=== PATIENT | female | born 1965 | race Caucasian/White ===

== ENCOUNTER → 2018-04-24 12:27 | Outpatient (CLI) | payer MEDICARE, MEDICAID, SELFPAY ==
[2018-04-06 15:15] VITALS: BMI 17.3
--- NOTE | 2018-04-24 12:54 | CT_ITS ---
STUDY: CT ABDOMEN AND PELVIS WITH CONTRAST REASON FOR EXAM: Female, 52 years old. Unplanned weight loss x 90 days. RADIATION DOSAGE (If Supplied By Facility): CTDIvol = ( 8.46 ) mGy, DLP = ( 455.63 ) mGycm TECHNIQUE: Transaxial images were obtained from the dome of the diaphragm to the symphysis pubis with oral contrast. 75 ml of Isovue 300 contrast was administered. Sagittal and coronal images were reconstructed. Individualized dose optimization techniques were used for this CT. COMPARISON: None. FINDINGS: The visualized lung bases are unremarkable. The visualized portions of the heart are within normal limits. Normal liver. The patent portal vein diameter is 16.5 mm. The gallbladder is partially contracted. The diameter of the common bile duct is 6.5 mm. Normal spleen. Normal pancreas. Normal bilateral adrenal glands. Normal right kidney. Normal left kidney. No hydronephrosis. Normal visualized stomach. Normal small intestine. There is a moderate volume of fecal material throughout the colon. The appendix is visualized and appears normal. There is moderate atherosclerotic calcification of the distal abdominal aorta and proximal iliac arteries, without a demonstrated aneurysm. Normal inferior vena cava. Normal retroperitoneum. Normal urinary bladder. Normal size retroverted uterus. Endometrial thickness is approximately 5.5 mm. Metal clips of prior bilateral tubal ligation noted along the uterine cornu. Subtle 1.3 cm hypodensity in the right ovary may be a dominant follicle. Normal abdominal wall. There are multilevel mild degenerative changes of the visualized lumbar spine. Degenerative arthrosis with osteophytic bridging noted along the superior aspect of the left sacroiliac joint. CT/Abdomen/Pelvis WITH Contrast IMPRESSION: 1. No demonstrated suspicious abdominal/pelvic mass or fluid collection. 2. Prior bilateral tubal ligation. Normal-size retroverted uterus with normal endometrial thickness. Probable 1.3 cm dominant follicle in the right ovary. 3. Aortoiliac atherosclerotic calcific plaquing. 4. 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 Electronically Signed: Perry Ricketts MD at 14:14 EST , Service support ,
--- NOTE | 2018-04-24 12:54 | CT_ITS ---
STUDY: CT CHEST/THORAX WITH CONTRAST REASON FOR EXAM: Female, 52 years old. Unplanned weight loss x 90 days. RADIATION DOSAGE (If Supplied By Facility): CTDIvol = ( 8.46 ) mGy, DLP = ( 455.63 ) mGycm TECHNIQUE: Transaxial imaging was performed following intravenous administration of 75 ml of Isovue 300 contrast material. Multiplanar coronal and sagittal images were reformatted. Individualized dose optimization techniques were used for this CT. COMPARISON: PA and lateral chest x-ray November 23, 2015. FINDINGS: There are moderately extensive centrilobular and panlobular emphysematous changes as well as subpleural blebs predominating in the upper to mid lung zones. There is minor pleural parenchymal scarring in the superior sulci. No consolidating infiltrate or pleural effusion. Normal heart and pericardium. There are atherosclerotic calcifications of the coronary arteries. There is a 1.7 x 1.0 x 1.2 cm precarinal lymph node. A few upper normal sized lymph nodes are present in the right hilum. There are nonspecific subcentimeter lymph nodes in the aorticopulmonary window and left hilum. Normal enhanced pulmonary arteries. There is mild atherosclerotic calcification of the aortic . There are multi-level mild degenerative changes of the thoracic spine. There is no demonstrated abnormality of the visualized upper abdomen. CT/Chest WITH Contrast IMPRESSION: 1. Emphysema. 2. Atherosclerotic calcifications of the coronary arteries. Heart size is normal. Electronically Signed: Perry Ricketts MD at 14:07 EST , Service support ,
[2018-04-24 12:57] LABS: Absolute Lymphocyte Count 3.06 X10^3/ul (0.83-4.51); Absolute Neutrophil Count 7.9 X10^3/uL (2.0-7.7); Basophil# 0.05 X10^3/uL; Basophil% 0.4 % (0-1); Eosinophil# 0.29 X10^3/uL; Eosinophils% 2.3 % (0-5); Hematocrit 40.2 % (37-47); Hemoglobin 12.9 g/dl (12.0-15.0); Lymphocyte # 3.06 X10^3/ul (4.0); Lymphocyte % 23.9 % (19-41); Mean Corp Hgb Conc 32.1 g/gl (32-36); Mean Corpuscular Hgb 30.2 pg (27.0-32.0); Mean Corpuscular Volume 94.1 fL (81-99); Monocyte# 1.41 X10^3/uL; Neutrophil # 7.94 X10^3/uL (2.7-7.7); Platelet Count 462 K/mm3 (150-450); RBC Distribution Width CV 12.5 % (11.6-14.6); Red Blood Count 4.27 M/mm3 (4.2-5.4); White Blood Count 12.8 K/mm3 (4.4-11.0)
[2018-04-24 13:01] LABS: POSITIVE COUNT NO; POSITIVE DIFFERENTIAL NO; POSITIVE MORPHOLOGY NO
[2018-04-24 13:45] LABS: ALB/GLOB Ratio 1.1 RATIO (0.9-2.4); AST(SGOT) 18 U/L (15-37); Alanine Aminotransfer ALT/SGPT 27 U/L (13-56); Albumin, Serum 3.8 g/dL (3.2-5.0); Alkaline Phosphatase 93 U/L (45-117); Anion Gap 6 (5-15); BUN 7 mg/dL (7-18); Calcium,Total 8.7 mg/dL (8.5-10.1); Chloride 103 mmol/L (98-107); Creatinine, Serum 0.64 mg/dL (0.55-1.02); EST Glomerular Filtration Rate 104 mL/min (>60); Est Glom Filt Rate - Afr Amer 126 mL/min (>60); Ferritin 209 ng/mL (8-252); Globulin 3.6 g/dL (2.2-4.2); Glucose 87 mg/dL (74-106); Iron 92 ug/dL (50-170); Iron Binding Capacity,Total 306 ug/dL (250-450); LDH 162 U/L (84-246); PERCENT IRON SATURATION 30.1 % (15.0-55.0); Phosphorus 3.8 mg/dL (2.5-4.9); Potassium 4.1 mmol/L (3.5-5.1); Protein, Total 7.4 g/dL (6.4-8.2); Sodium Level 134 mmol/L (136-145)
[2018-04-24 14:05] LABS: Vitamin B12 608 pg/mL (211-911)
== END ==
PROVIDERS: Family Provider Nurse Practitioner Family; PCP Nurse Practitioner Family; Referring Provider Internal Medicine Medical Oncology; Visit Provider Internal Medicine Medical Oncology
DX: R63.4 Abnormal weight loss (principal); D69.6 Thrombocytopenia, unspecified
CPT/HCPCS: 36415; 71260; 74177; 80053; 82607; 82728; 82746; 83540; 83550; 83615; 83735; 84100; 85025; Q9967

== ENCOUNTER → 2018-06-26 12:42 | Outpatient (CLI) | payer MEDICARE, MEDICAID, SELFPAY ==
[2018-05-08 14:36] VITALS: BMI 17.9
--- NOTE | 2018-06-26 12:45 | CT_ITS ---
STUDY: CT CHEST WITH CONTRAST REASON FOR EXAM: Female, 52 years old. Mediastinal adenopathy follow-up, shortness of breath, smokes 1 pack per day, emphysema, hypertension RADIATION DOSAGE (If Supplied By Facility): CTDIvol = ( 7.26 ) mGy, DLP = ( 181.52 ) mGycm TECHNIQUE: Transaxial imaging was performed following intravenous administration of 75mL IV Isovue 370. Multiplanar coronal and sagittal images were reformatted. Individualized dose optimization techniques were used for this CT. COMPARISON: CT chest contrast 04/24/2018 FINDINGS: Moderate centrilobular and paraseptal emphysema with up to 2.8 cm medial bilateral pleural bulla formation. Bilateral apical pleural thickening and mild adjacent distortion of parenchyma extending along the right mid chest wall without change. No intraparenchymal nodules or masses detected.. There is no demonstrated pleural abnormality. Normal heart and pericardium. There are calcifications of the coronary arteries. Precarinal lymph node 1.2 x 1.5 x 1.3 cm appears overall stable allowing for adjacent streak artifact on current examination. There are right paratracheal borderline sized lymph nodes measuring 0.6 x 0.9 x 1.4 cm, 0.9 x 0.6 x 1.4 cm. Right hilar lymph node of 0.7 x 1 x 1 cm. Normal hilar regions. Normal enhanced pulmonary arteries. Normal aorta arch and descending thoracic aorta. There are mild multi-level degenerative changes of the thoracic spine. No destructive osseous lesions. There is no demonstrated abnormality of the visualized upper abdomen. CT/Chest WITH Contrast IMPRESSION: Emphysema with stable apical pleural thickening and parenchymal distortion tracking along the right chest wall. No pulmonary nodules, pulmonary masses, pulmonary edema, congestive heart failure or confluent pneumonia. Mediastinal and right hilar borderline in size to minimally enlarged lymph nodes without significant interval change. Electronically Signed: Padma Reno MD at 4:28 EDT , Service support ,
== END ==
PROVIDERS: Family Provider Nurse Practitioner Family; PCP Nurse Practitioner Family; Referring Provider Internal Medicine Medical Oncology; Visit Provider Internal Medicine Medical Oncology
DX: R59.0 Localized enlarged lymph nodes (principal); D72.829 Elevated white blood cell count, unspecified
CPT/HCPCS: 71260; Q9967

== ENCOUNTER 2018-10-04 13:58 | Emergency (ER) | payer MEDICARE, OTHER, SELFPAY ==
[2018-07-03 15:17] VITALS: BMI 18.8
[2018-10-04 14:00] VITALS: BP 175/91; PULSE 78; RESP 16; TEMP 36.5; O2SAT 100; BMI 19.3
--- NOTE | 2018-10-04 14:21 | EKG12_ITS ---
Test Reason : WEAKNESS Blood Pressure : / mmHG Vent. Rate : 078 BPM Atrial Rate : 078 BPM P-R Int : 130 ms QRS Dur : 094 ms QT Int : 402 ms P-R-T Axes : 051 -52 068 degrees QTc Int : 458 ms Normal sinus rhythm Possible Left atrial enlargement Left axis deviation Incomplete right bundle branch block Abnormal ECG Confirmed by CONSUELO RIOS ([id number]), purchasing expeditor WISAM GARCIA ([id number]) on 10/05/2018 9:48:08 AM Referred By: Confirmed By:CONSUELO RIOS
--- NOTE | 2018-10-04 14:21 | CT_ITS ---
STUDY: CT BRAIN WITHOUT CONTRAST REASON FOR EXAM: Female, 52 years old. Right-sided weakness RADIATION DOSAGE (If Supplied By Facility): CTDIvol = ( 60.81 ) mGy, DLP = ( 998.67 ) mGycm TECHNIQUE: Transaxial CT imaging of the brain was performed without administration of intravenous contrast material. Individualized dose optimization techniques were used for this CT. COMPARISON: 2008 FINDINGS: Normal soft tissue structures. Normal calvarium. Normal size ventricles and extra-axial spaces for the patient's age. Normal white matter tracts of the cerebral hemispheres. Normal basal ganglia and thalami. Normal brainstem. Normal cerebellum. There is no intracranial hemorrhage. There are no findings of an acute ischemic infarction. Normal visualized paranasal sinuses. CT/Brain/Head without Contrast IMPRESSION: Normal unenhanced CT scan of the brain. Electronically Signed: Perry Hammond MD at 14:58 EDT , Service support ,
--- NOTE | 2018-10-04 14:35 | ED.DCSUM_ITS ---
- ER Visit Summary Date of Service: 10/04/18 Chief Complaint: Right-sided weakness and numbness History of Present Illness: The patient is a 52 F who tells me that ever since she had a hysterectomy in July her right side is intermittently been numb and weak. States she has a history of RSD and it affects her right side. She states that her [employer] ROOM ATTENDANT who did her hysterectomy knows about her symptoms. Her primary care physician does not know about them. Daughter states that patient seems to have difficulty walking. None of this is new today. She states that her home physical therapist thought that she should come to emergency as a precaution. They thought perhaps she was having a stroke. Physical Examination: Afebrile vital signs stable Gen: Well-nourished well-developed Head: Normocephalic atraumatic Eyes: Perrl EOMI ENT: TMs clear no rhinorrhea moist mucous membranes Neck: Supple no lymphadenopathy no JVD nontender CVS: Regular rate rhythm no murmurs normal S1-S2 Respiratory: No distress clear to auscultation bilaterally chest nontender Abdomen: Soft nontender nondistended normal bowel sounds no masses Back: Nontender Extremity: Nontender no edema Skin: Normal color no rash Neuro: alert orientated ?3 CN II-XII intact normal strength sensation cerebellar I score her NIH of 0 Psych: Pressured speech appears irritated Test Results: EKG shows a sinus rhythm at a rate of 78 chest x-ray negative. CT the brain does not show any acute subacute or chronic infarcts. There is no evidence of normal pressure hydrocephalus. Is essentially negative head CT. Basic blood work white count 11.3 normal platelets and hemoglobin. Her lecture lites are in check. Glucose is slightly low at 67. Emergency Department Course and Treatment: Patient was given some orange juice. At this point patient does not have acute symptoms. I think she can be discharged home. Asked that she involve her primary care physician in her care as they do not know anything about the symptoms. Impression: 1. Chronic right-sided weakness and paresthesias This note was generated with [employer] dictation software. It may contain incorrect words, spelling, and punctuation that were not noted in review of the chart prior to signing ED Disposition - Plan for ED Patient: Disposition: Home or Assisted Living Instructions: WEAKNESS, Unk Cause Referrals: Jaylin Diehl NP-C [Primary Care Provider] - As soon as possible
[2018-10-04 14:44] LABS: Absolute Lymphocyte Count 3.12 X10^3/uL (0.83-4.51); Absolute Neutrophil Count 6.6 X10^3/uL (2.0-7.7); Basophil# 0.06 X10^3/uL; Basophil% 0.5 % (0-1); Eosinophil# 0.25 X10^3/uL; Eosinophils% 2.2 % (0-5); Hematocrit 40.2 % (37-47); Hemoglobin 13.2 g/dL (12.0-15.0); Lymphocyte # 3.12 X10^3/ul (4.0); Lymphocyte % 27.6 % (19-41); Mean Corp Hgb Conc 32.8 g/dL (32-36); Mean Corpuscular Volume 94.4 fL (81-99); Mean Platelet Vol. 8.7 fl (6.2-12.0); Monocyte# 1.19 X10^3/uL; Monocyte% 10.5 % (0-10); NRBC Flagged by Analyzer 0 % (0-5); Neutrophil # 6.64 X10^3/uL (2.7-7.7); Neutrophil % 58.8 % (47-70); Platelet Count 431 K/mm3 (150-450); RBC Distribution Width SD 41.9 fl (35.1-43.9); Red Blood Count 4.26 M/mm3 (4.2-5.4); White Blood Count 11.3 K/mm3 (4.4-11.0)
--- NOTE | 2018-10-04 14:45 | RAD_ITS ---
STUDY: X-RAY CHEST REASON FOR EXAM: Female, 52 years old. Weakness TECHNIQUE: PA and 2 lateral views of the chest. COMPARISON: 11/23/2015 FINDINGS: EKG leads overlie the chest The lungs are clear and expanded. There is no demonstrated pleural abnormality. Normal size heart. Normal mediastinum and jennifer. Normal visualized pulmonary arteries. Normal visualized aortic arch and descending thoracic aorta. Normal visualized thoracic spine. Normal visualized ribs, clavicles, and shoulders. There is no demonstrated abnormality of the visualized soft tissue structures of the upper abdomen. RAD/Chest PA and Lateral IMPRESSION: Normal x-ray examination of the chest. Electronically Signed: Perry Hammond MD at 15:00 EDT , Service support ,
[2018-10-04 14:59] LABS: ALB/GLOB Ratio 1.1 RATIO (0.9-2.4); AST(SGOT) 13 U/L (15-37); Alanine Aminotransfer ALT/SGPT 21 U/L (13-56); Albumin, Serum 3.9 g/dL (3.2-5.0); Alkaline Phosphatase 109 U/L (45-117); Anion Gap 6 (5-15); BUN 11 mg/dL (7-18); BUN/Creat Ratio 11.6 RATIO (10-20); Chloride 105 mmol/L (98-107); Creatinine, Serum 0.95 mg/dL (0.55-1.02); EST Glomerular Filtration Rate 66 mL/min (>60); Est Glom Filt Rate - Afr Amer 79 mL/min (>60); Estimated Creatinine Clearance 57.74 ml/min; Globulin 3.4 g/dL (2.2-4.2); Glucose 67 mg/dL (74-106); Potassium 3.6 mmol/L (3.5-5.1); Protein, Total 7.3 g/dL (6.4-8.2); Sodium Level 139 mmol/L (136-145)
[2018-10-04 15:45] LABS: Bedside Glucose 133 mg/dL (70-110)
[2018-10-04 16:00] VITALS: BP 105/63; PULSE 62; RESP 15; O2SAT 98
== END 2018-10-04 16:01 | disposition home or self-care (01) ==
PROVIDERS: Emergency Provider Emergency Medicine; Family Provider Nurse Practitioner Family; PCP Nurse Practitioner Family
DX: R53.1 Weakness (principal); R20.2 Paresthesia of skin; J44.9 Chronic obstructive pulmonary disease, unspecified; G90.50 Complex regional pain syndrome I, unspecified; F10.20 Alcohol dependence, uncomplicated; Z90.710 Acquired absence of both cervix and uterus; Z79.899 Other long term (current) drug therapy; Z72.0 Tobacco use
CPT/HCPCS: 70450; 71046; 80053; 82962; 85025; 93005; 99285; A4216

== ENCOUNTER 2018-11-21 02:22 | Emergency (ER) | payer MEDICARE, OTHER, SELFPAY ==
[2018-11-21 02:23] VITALS: BP 166/96; PULSE 70; RESP 18; TEMP 36.5; O2SAT 100; BMI 20.7
--- NOTE | 2018-11-21 02:36 | ED.DCSUM_ITS ---
History of Present Illness Chief Complaint: General Illness Narrative: Patient is a 52-year-old female who presents with a rash since July. She states it is painful. She has seen a research and evaluation analyst. She was prescribed doxepin. She denies any associated new symptoms such as fevers nausea vomiting chest pain shortness of breath. She complains of some cough but review of systems otherwise negative. Past Medical History - Allergies and Home Meds Allergies/Adverse Reactions: Allergies cortisone Allergy (Verified 11/21/18 02:29) Swelling latex Allergy (Verified 11/21/18 02:29) Itching Penicillins Allergy (Verified 11/21/18 02:29) Hives Primary Care Physician: Jaylin Diehl NP-C [Primary Care Provider] - Past Medical History: - - Fibromyalgia Surgical History: hysterectomy Smoking Status: Current every day smoker Review of Systems All systems negative except as indicated General: Denies: Fever Respiratory: Reports: Cough Skin: Reports: Rash Physical Exam Vital Signs/Narrative: Vital Signs Temp Pulse Resp BP Pulse Ox 11/21/18 02:23 97.7 F L 70 18 166/96 H 100 Inital Vital Signs reviewed: Yes General: Well nourished Head: Normocephalic Eyes: EOMI ENT: Moist mucous membranes Neck: Supple Cardiovascular: Regular rate, Regular rhythm Respiratory: No distress, CTA bilaterally Abdomen: Soft Skin: Rash - Patient has a rash which appears to be small scabbed over wounds on the legs and arms possibly consistent with picking at the skin no petechiae no purpura no erythema no streaking Neurological: Alert Psychological: Normal affect Diagnostic/Tx/Re-eval - Medical Decision Making I explained to the patient I am uncertain of the cause of her rash however it does not appear to be due to acute serious or life-threatening pathology. I explained given that she has had the rash for 4 months and already seen a research and evaluation analyst I have nothing else to offer her here in the emergency department and that she should follow-up with dermatology. She noted difficulty getting hold of her primary care physician so was given a referral to establish new physician should she wish. She was given the contact information for the next physician on the no doc list. ED Disposition - Plan for ED Patient: Disposition: Home or Assisted Living Diagnosis: Rash Referrals: Jaylin Diehl NP-C [Primary Care Provider] - Robert Arce DO [STAFF PHYSICIAN] - Additional Instructions: You were seen today for a rash. It does not appear to be due to a serious or life-threatening problem. I would recommend that you follow-up with the primary care physician and dermatology.
[2018-11-21 02:45] VITALS: BP 166/96; PULSE 70; RESP 18; O2SAT 100
== END 2018-11-21 02:45 | disposition home or self-care (01) ==
LOC: ED 02:42
PROVIDERS: Emergency Provider Emergency Medicine; Family Provider Nurse Practitioner Family; PCP Nurse Practitioner Family
DX: R21 Rash and other nonspecific skin eruption (principal); F17.200 Nicotine dependence, unspecified, uncomplicated; M79.7 Fibromyalgia; Z79.899 Other long term (current) drug therapy
CPT/HCPCS: 99282

== ENCOUNTER → 2019-01-09 | Outpatient (CLI) | payer MEDICARE, OTHER, SELFPAY ==
[2019-01-09 12:16] LABS: Absolute Neutrophil Count 7.3 X10^3/uL (2.0-7.7); Basophil# 0.07 X10^3/uL; Basophil% 0.6 % (0-1); Eosinophil# 0.22 X10^3/uL; Eosinophils% 1.9 % (0-5); Hematocrit 41.3 % (37-47); Lymphocyte % 25.5 % (19-41); Mean Corp Hgb Conc 31.5 g/dL (32-36); Mean Corpuscular Hgb 29.3 pg (27.0-32.0); Mean Corpuscular Volume 93.2 fL (81-99); Mean Platelet Vol. 9.3 fl (6.2-12.0); Monocyte# 0.83 X10^3/uL; Monocyte% 7.3 % (0-10); NRBC Flagged by Analyzer 0 % (0-5); Neutrophil # 7.34 X10^3/uL (2.7-7.7); Neutrophil % 64.4 % (47-70); Platelet Count 413 K/mm3 (150-450); RBC Distribution Width CV 12.6 % (11.6-14.6); RBC Distribution Width SD 43.5 fl (35.1-43.9); Red Blood Count 4.43 M/mm3 (4.2-5.4); White Blood Count 11.4 K/mm3 (4.4-11.0)
[2019-01-09 15:05] LABS: AST(SGOT) 15 U/L (15-37); Alanine Aminotransfer ALT/SGPT 21 U/L (13-56); Alkaline Phosphatase 82 U/L (45-117); Anion Gap 6 (5-15); BUN 13 mg/dL (7-18); BUN/Creat Ratio 19.5 RATIO (10-20); Bilirubin, Direct 0.07 mg/dL (0.00-0.30); Calcium,Total 9.1 mg/dL (8.5-10.1); Chloride 105 mmol/L (98-107); Creatinine, Serum 0.67 mg/dL (0.55-1.02); EST Glomerular Filtration Rate 98 mL/min (>60); Est Glom Filt Rate - Afr Amer 119 mL/min (>60); Globulin 3.4 g/dL (2.2-4.2); Glucose 88 mg/dL (74-106); Potassium 4.1 mmol/L (3.5-5.1); Protein, Total 7.4 g/dL (6.4-8.2); Sodium Level 137 mmol/L (136-145); T4 Free Direct 1.03 ng/dL (0.76-1.46); Thyroid Stim Hormone (TSH) 0.98 uIU/mL (0.358-3.74)
== END | disposition home or self-care (01) ==
LOC: MTLAB 10:48
PROVIDERS: Family Provider Nurse Practitioner Family; PCP Nurse Practitioner Family; Referring Provider Dermatology; Visit Provider Dermatology
DX: L29.8 Other pruritus (principal); S30.91XA Unspecified superficial injury of lower back and pelvis, initial encounter; S70.922A Unspecified superficial injury of left thigh, initial encounter; S70.921A Unspecified superficial injury of right thigh, initial encounter; S80.922A Unspecified superficial injury of left lower leg, initial encounter; S80.921A Unspecified superficial injury of right lower leg, initial encounter; S50.911A Unspecified superficial injury of right forearm, initial encounter; S50.912A Unspecified superficial injury of left forearm, initial encounter; S90.922A Unspecified superficial injury of left foot, initial encounter; S90.921A Unspecified superficial injury of right foot, initial encounter; S20.402A Unspecified superficial injuries of left back wall of thorax, initial encounter; S20.401A Unspecified superficial injuries of right back wall of thorax, initial encounter; R20.8 Other disturbances of skin sensation; Z78.9 Other specified health status
CPT/HCPCS: 36415; 80048; 80076; 84439; 84443; 85025

== ENCOUNTER → 2019-04-03 10:22 | Outpatient (CLI) | payer MEDICARE, OTHER, SELFPAY ==
--- NOTE | 2019-04-03 10:30 | RAD_ITS ---
HISTORY: RT HIP PAIN SINCE HYSTERECTOMY IN JULY. HIP GIVES OUT. ADDITIONAL HISTORY: None provided. TECHNIQUE: AP and lateral views of the right hip with AP pelvis Number of images including paperwork: 3 COMPARISON: None FINDINGS: BONES: No acute fracture. JOINTS: No subluxation. SOFT TISSUES: No distinct foreign body. RAD/HIP, UNI W/ Pelvis 2-3 Views IMPRESSION: No acute osseous abnormality. at 0616 Reported and signed by: Racheal De Guzman MD Electronically Signed: Racheal De Guzman MD at 6:16 EST Tel , Service support ,
== END ==
PROVIDERS: PCP Nurse Practitioner Family; Referring Provider Nurse Practitioner Family; Visit Provider Nurse Practitioner Family
DX: M25.551 Pain in right hip (principal)
CPT/HCPCS: 73502

== ENCOUNTER 2019-06-23 19:36 | Emergency (ER) | payer MEDICARE, MEDICAID, SELFPAY ==
[2019-06-23 19:37] VITALS: BP 156/80; PULSE 64; RESP 18; TEMP 35.5; O2SAT 100; BMI 17.4
--- NOTE | 2019-06-23 19:52 | ED.DCSUM_ITS ---
History of Present Illness Chief Complaint: Lower Extremity Injury Detail of Chief Complaint: right hip pain Informant: Patient Onset: Weeks - 3 Context: Gradual Onset Timing: Continuous Quality of Pain: Aching Location: right lateral hip, low back/buttock, and into lateral thigh Current Severity: Severe Maximum Severity: Severe Worsened by: trying to walk/WB RLE Relieved by: nothing; a little better w/ remaining still Associated Symptoms: Parasthesia - in same distribution as the pain. Negative for: Weakness, Loss of Funtion Narrative: Patient states she had a hysterectomy last year in July, and for the last 11 months she has been having pain in her right hip. She states the etiology is unknown, but since October of last year, she has had an indentation in the area of the right ischial tuberosity that is from unknown cause. She has never had right hip surgery. She does not have any abdominal pain. All the pain is in the same distribution as numbness which is lateral right hip/thigh, and into her buttock. She denies any symptoms going below the leg. She denies any bowel or bladder dysfunction. She has had a couple falls in the past year, 1 of them occurred a couple days ago. She did not injure herself, but states she fell as a result of severe pain in her right lower extremity/hip causing her right leg to give way temporarily. She is looking for something to help with the pain tonight. She denies any new symptoms. No fevers. - Past Medical History (1) History of depression Status: Chronic (2) Mediastinal adenopathy Status: Chronic Past Medical History - Allergies and Home Meds Allergies/Adverse Reactions: Allergies cortisone Allergy (Verified 06/23/19 19:40) Swelling latex Allergy (Verified 06/23/19 19:40) Itching Penicillins Allergy (Verified 06/23/19 19:40) Hives Primary Care Physician: Jaylin Diehl NP-C [Primary Care Provider] - Surgical History: hysterectomy Lives: - - independent living / senior living community Smoking Status: Current every day smoker Review of Systems General: Denies: Chills, Fever, Sweats Gastrointestinal: Denies: Abdominal pain, Nausea, Vomiting, Diarrhea, Melena, Hematochezia Musculoskeletal: Reports: Extremity Pain. Denies: Neck pain, Back pain Skin: Denies: Rash, Abrasions, Wounds Neurological: Reports: Parasthesia. Denies: Headache, Weakness Physical Exam Vital Signs/Narrative: Vital Signs Temp Pulse Resp BP Pulse Ox 06/23/19 19:37 96 F L 64 18 156/80 H 100 Inital Vital Signs reviewed: Yes - Extremity Exam Right Hip: Limited ROM - due to pain, but able, - - There is indeed a soft tissue indentation in the area of the right buttock/ischial tuberosity. She is tender throughout this area as well as the lateral thigh including the greater trochanter, sciatic notch, lateral right buttock. Negative straight leg raises. Painless internal and external rotation about the hip joint without any groin pain. She is able to flex at the thigh fully, although she is limited at extreme because of pain. General: Well nourished, Well developed, - - NAD Head: Normocephalic, Atraumatic Abdomen: Soft, Nontender, Nondistended, Normal bowel sounds Back: Nontender. Negative for: CVA Tenderness - Right, CVA Tenderness - Left, Spinal Tenderness, Negative SLR - Right, Negative SLR - Left Skin: Normal color, No rash Neurological: Alert, Oriented x3, Cranial nerves II-XII grossly intact, Normal Strength, Normal DTR, Parasthesia - lateral right thigh Psychological: - - anxious, frustrated Diagnostic/Tx/Re-eval - Medical Decision Making No presence of any emergency medical conditions. I asked patient if she had been considered for an MRI of this area to find out what the soft tissue problem is that is causing an abnormal indentation in her right distal tuberosity area. She states that she has not discussed that with her doctor although she has seen them and is on Neurontin in addition to other medications help control this pain, they are not working at this time. I am happy to help control her symptoms tonight, she was given prophylactic Zofran in addition to Norflex and morphine injections, if improved will discharge her home to follow-up with her doctor. She may have a neuropathy of the lateral cutaneous nerve of the thigh causing the symptoms. She may need further work-up including MRI non- emergently, nerve conduction studies. She does not examine like a septic joint, gout, fracture. Furthermore she states she has had x-rays of her right hip at this facility in the past, they did not show any obvious problem, and she states the symptoms are the same and she does not want x-rays at this time. ED Disposition - Plan for ED Patient: Disposition: Home or Assisted Living Diagnosis: Peripheral neuropathic pain Instructions: ED PERIPHERAL NEUROPATHY Referrals: Jaylin Diehl NP-C [Primary Care Provider] - As soon as possible
[2019-06-23] MEDS: Ondansetron ODT 4 MG Tablet 8 MG PO (20:10)
[2019-06-23] MEDS: Orphenadrine 60 MG/2 ML Ampul IM (20:11)
[2019-06-23] MEDS: Morphine 4 MG/ML Syringe IM (20:11)
[2019-06-23 20:32] VITALS: BP 134/76; PULSE 71; RESP 18; O2SAT 99
== END 2019-06-23 20:33 | disposition home or self-care (01) ==
LOC: ED 20:17
PROVIDERS: Emergency Provider Emergency Medicine; PCP Nurse Practitioner Family
DX: M79.2 Neuralgia and neuritis, unspecified (principal); F32.9 Major depressive disorder, single episode, unspecified; Z79.899 Other long term (current) drug therapy; F17.200 Nicotine dependence, unspecified, uncomplicated
CPT/HCPCS: 96372; 99282

== ENCOUNTER → 2019-06-29 12:39 | Outpatient (CLI) | payer MEDICARE, MEDICAID, SELFPAY ==
[2019-06-23 19:37] VITALS: BMI 17.4
[2019-06-26 14:02] LABS: Absolute Lymphocyte Count 3.16 X10^3/uL (0.83-4.51); Absolute Neutrophil Count 6.7 X10^3/uL (2.0-7.7); Basophil# 0.08 X10^3/uL; Basophil% 0.7 % (0-1); Eosinophils% 4.4 % (0-5); Lymphocyte # 3.16 X10^3/ul (4.0); Lymphocyte % 27.6 % (19-41); Mean Corp Hgb Conc 32.5 g/dL (32-36); Mean Corpuscular Hgb 29.9 pg (27.0-32.0); Mean Platelet Vol. 9.1 fl (6.2-12.0); Monocyte# 0.96 X10^3/uL; Monocyte% 8.4 % (0-10); NRBC Flagged by Analyzer 0 % (0-5); Neutrophil # 6.73 X10^3/uL (2.7-7.7); Neutrophil % 58.6 % (47-70); Platelet Count 438 K/mm3 (150-450); RBC Distribution Width CV 12.4 % (11.6-14.6); RBC Distribution Width SD 41.5 fl (35.1-43.9); Red Blood Count 4.35 M/mm3 (4.2-5.4); White Blood Count 11.5 K/mm3 (4.4-11.0)
[2019-06-26 14:06] LABS: ALB/GLOB Ratio 1.2 RATIO (0.9-2.4); AST(SGOT) 21 U/L (15-37); Alanine Aminotransfer ALT/SGPT 25 U/L (13-56); Albumin, Serum 3.7 g/dL (3.2-5.0); Alkaline Phosphatase 91 U/L (45-117); Anion Gap 5 (5-15); BUN 14 mg/dL (7-18); BUN/Creat Ratio 14.2 RATIO (10-20); Calcium,Total 9.1 mg/dL (8.5-10.1); Chloride 106 mmol/L (98-107); Cholesterol 178 mg/dL (200); Creatinine, Serum 0.99 mg/dL (0.55-1.02); EST Glomerular Filtration Rate 62 mL/min (>60); Est Glom Filt Rate - Afr Amer 75 mL/min (>60); Globulin 3.2 g/dL (2.2-4.2); Glucose 84 mg/dL (74-106); High Density Lipoprotein 75 mg/dL; LDH 161 U/L (84-246); Potassium 4.1 mmol/L (3.5-5.1); Protein, Total 6.9 g/dL (6.4-8.2); Sodium Level 140 mmol/L (136-145); Triglycerides 142 mg/dL; Very Low Density Lipoprotein 28 mg/dL (5-40)
--- NOTE | 2019-06-29 12:40 | CT_ITS ---
STUDY: CT CHEST WITH CONTRAST REASON FOR EXAM: Female, 53 years old. PT STATED FOLLOW UP TO MEDIASTINAL LYMPHADENOPATHY RADIATION DOSAGE (If Supplied By Facility): CTDIvol = ( 7.28 ) mGy, DLP = ( 215.46 ) mGycm TECHNIQUE: Transaxial imaging was performed following intravenous administration of IV 100ML ISOVUE 300. Multiplanar coronal and sagittal images were reformatted. Individualized dose optimization techniques were used for this CT. COMPARISON: 06/26/2018. FINDINGS: There is bilateral upper lobe emphysema, more significant along the subpleural region and more so within the lung apices. Stable focal pleural thickening along the right side of the right lung apex. Otherwise remainder of the lung stewart are clear. No focal infiltrate, nodule or mass. There is no demonstrated pleural abnormality. Normal heart and pericardium. Normal enhancement of the vascular structures with no evidence of pulmonary embolus or aortic dissection. Normal mediastinum. Normal hilar regions. Normal enhanced pulmonary arteries. Normal aorta arch and descending thoracic aorta. There are no demonstrated pulmonary emboli. Normal osseous structures. There is no demonstrated abnormality of the visualized upper abdomen. CT/Chest WITH Contrast IMPRESSION: Emphysematous changes primarily through the upper lung stewart and more significant in the subpleural distribution and lung apices. No acute interval change. Electronically Signed: Germaine Lu MD at 1:48 EDT , Service support ,
--- NOTE | 2019-06-29 12:45 | MRI_ITS ---
STUDY: MRI RIGHT HIP REASON FOR EXAM: Female, 53 years old. RIGHT hip pain, and INDENTATION IN RIGHT BUTTOCK AREA X 11 MONTHS TECHNIQUE: Standardized fat and water weighted pulse sequences were obtained in all 3 orthogonal planes. COMPARISON: X-ray April 03, 2019 FINDINGS: There is mild articular narrowing of the hip joint, with less than 50% loss of the hyaline cartilage. Normal acetabulum. Normal labrum. Normal femoral head. Normal femoral neck and intratrochanteric region. There is no demonstrated fracture. Normal gluteus minimus, medius and iliopsoas tendons and distal insertions. There is focal muscular edema with strain and/or partial tear of the gluteus kesha, series 6 images through . There is focal subcutaneous edema of the posterior superior right buttock. There is no trochanteric, iliopsoas or iliopectineal bursitis. Normal superior and inferior pubic rami. Normal pubic symphysis. Normal ischial tuberosity. Normal origin of the hamstring tendons. Normal visualized iliac wing, sacroiliac joint, and sacral ala. MRI/Lower Ext Joint Only (Routine) IMPRESSION: Muscular strain or partial tear of the gluteus kesha. There is subcutaneous edema of the right buttock. No fracture or avascular necrosis. Electronically Signed: Yefri Pollard MD at 15:03 EDT , Service support ,
== END ==
PROVIDERS: Internal Medicine Medical Oncology; PCP Nurse Practitioner Family; Referring Provider Nurse Practitioner Family; Visit Provider Nurse Practitioner Family
DX: M21.951 Unspecified acquired deformity of right thigh (principal); M25.551 Pain in right hip; D47.3 Essential (hemorrhagic) thrombocythemia; R59.0 Localized enlarged lymph nodes; R94.5 Abnormal results of liver function studies; E78.5 Hyperlipidemia, unspecified
CPT/HCPCS: 36415; 71260; 73721; 80053; 80061; 83615; 85025; Q9967

== ENCOUNTER 2019-08-29 22:59 | Emergency (ER) | payer MEDICARE, MEDICAID, SELFPAY ==
[2019-08-29 23:00] VITALS: BP 123/84; PULSE 83; RESP 20; TEMP 36.6; O2SAT 98; BMI 18.0
--- NOTE | 2019-08-29 23:36 | ED.DCSUM_ITS ---
- ER Visit Summary Date of Service: 08/29/19 Chief Complaint: Right hip pain History of Present Illness: The patient is a 53 F presenting with right hip pain. She states that this has been ongoing for the past year. She states she walked too much today and may have overdone it. She was also seen by ortho pedics today and was referred to another orthopedic surgeon in [place]. She is also in pain management and saw them 3 days ago. She is on tramadol and tried this today. She denies fever. Denies bowel or bladder incontinence. Denies recent trauma. Denies new complaints. Physical Examination: Vitals are stable. Patient is afebrile. Alert no acute distress. HEENT exam is unremarkable. Neck is supple. Lungs are clear and equal bilaterally. Heart is regular rate and rhythm. Extremities mild right hip tenderness. AFROM. No erythema or warmth. Neurovascularly intact distally Skin is warm and dry. No focal neurologic deficit. Remainder of exam is unremarkable. Emergency Department Course and Treatment: Patient is in pain management. She is requesting a one-time IM pain medication to control her pain for tonight and she will follow-up with her physician tomorrow. She is given morphine, Zofran IM. She is advised to follow-up with pain management and orthopedics. Advised return to ED for worsening complaints Disposition: Discharged home Impression: Acute on chronic right hip pain This note was generated with [employer] dictation software. It may contain incorrect words, spelling, and punctuation that were not noted in review of the chart prior to signing ED Disposition - Plan for ED Patient: Instructions: ED Chronic Pain Referrals: Jaylin Diehl NP-C [Primary Care Provider] -
[2019-08-29] MEDS: morphine 10 MG/ML Syringe 8 MG IM (23:38)
[2019-08-29] MEDS: Ondansetron 4 MG/2 ML Vial IM (23:38)
== END 2019-08-30 00:15 | disposition home or self-care (01) ==
PROVIDERS: Emergency Provider Emergency Medicine; PCP Nurse Practitioner Family
DX: M25.551 Pain in right hip (principal); G89.29 Other chronic pain; J44.9 Chronic obstructive pulmonary disease, unspecified; Z72.0 Tobacco use
CPT/HCPCS: 96372; 99282; J2405

== ENCOUNTER 2019-09-26 03:22 | Emergency (ER) | payer MEDICARE, MEDICAID, SELFPAY ==
[2019-09-26 03:24] VITALS: BP 144/92; PULSE 89; RESP 16; TEMP 36.2; O2SAT 96; BMI 19.1
--- NOTE | 2019-09-26 03:29 | ED.VIS.GEN ---
History of Present Illness Chief Complaint: Lower Extremity Injury Informant: Patient Onset: Month(s) Context: Gradual Onset Timing: Intermittent Current Severity: Moderate Maximum Severity: Severe Narrative: The patient is a 53-year-old female with medical history significant for gluteus tear presents to the emergency department with an exacerbation of her pain. Patient states that she was getting out of her bed tonight. She states that she felt something pull in her buttock and she fell to the ground. She did not strike her head or lose consciousness. She has been ambulatory since. She has a known tear in her gluteus area. She has seen pain management and orthopedics. She has been treating conservatively. She states this is her normal pain. She denies any fevers or chills. She denies any difficulty with bowel or bladder. She denies any other injury. Prior similar symptoms: Yes Recent Illness/Hospitalization: No Past Medical History - Allergies and Home Meds Allergies/Adverse Reactions: Allergies cortisone Allergy (Verified 09/26/19 03:27) Swelling latex Allergy (Verified 09/26/19 03:27) Itching Penicillins Allergy (Verified 09/26/19 03:27) Hives Primary Care Physician: Jalyin Diehl NP-C [Primary Care Provider] - Prior records reviewed: Yes Past Medical History: - - Anxiety, chronic pain Surgical History: hysterectomy Smoking Status: Current every day smoker Review of Systems General: Denies: Chills, Fever, Sweats Eyes: Denies: Visual changes - bilaterally, Diplopia ENT: Denies: Rhinorrhea, Sore throat Cardiovascular: Denies: Chest pain, Palpitations Respiratory: Denies: Dyspnea, Cough, Dyspnea on exertion Gastrointestinal: Denies: Abdominal pain, Nausea, Vomiting, Diarrhea, Melena, Hematochezia Genitourinary: Denies: Dysuria, Hematuria, Frequency Musculoskeletal: Reports: Myalgias, Arthralgias. Denies: Back pain, Extremity Pain Skin: Denies: Rash, Wounds Neurological: Denies: Headache, Weakness, Numbness Physical Exam Vital Signs/Narrative: Vital Signs Temp Pulse Resp BP Pulse Ox 09/26/19 03:24 97.1 F L 89 16 144/92 H 96 Inital Vital Signs reviewed: Yes General: Well nourished, Well developed, No Acute Distress Head: Normocephalic, Atraumatic Eyes: Perrl, EOMI ENT: Moist mucous membranes, No rhinorrhea Neck: Supple, Nontender Cardiovascular: Regular rate, Regular rhythm, No murmurs Respiratory: No distress, CTA bilaterally, Chest nontender Abdomen: Soft, Nontender, Nondistended, Normal bowel sounds Back: Nontender, Normal Inspection, - - There is an obvious defect in the upper outer quadrant of the right gluteus kesha. There is no cellulitis or erythematous change. There is no pain with logroll of the hip. The pulses of the lower extremities are 2+ and symmetric. The reflexes are normal. Extremities: Nontender, No edema Skin: Normal color, No rash Neurological: Alert, Oriented x3, Cranial nerves II-XII grossly intact, Normal Strength, Normal Sensation Psychological: Normal affect, Normal Mood Diagnostic/Tx/Re-eval - Medical Decision Making The patient presents with exacerbation of her pain. She had mechanical fall, but has had no bony tenderness. Her pain is all reproducible over the area of defect in her gluteus area. The patient will be treated with IM medications for pain control. She is already established with pain management. This does appear to be more of a chronic problem. I have no concern for epidural abscess, cauda equina, or other dangerous process. I do not feel that imaging is necessary as this seems all muscular. The patient will be discharged home. Impression 1. Gluteus strain with history of tear ED Disposition - Plan for ED Patient: Instructions: ED Sprain Hip Referrals: Jaylin Diehl NP-C [Primary Care Provider] -
[2019-09-26] MEDS: Morphine 4 MG/ML Syringe IM (03:35)
[2019-09-26] MEDS: Ondansetron ODT 4 MG Tablet PO (03:36)
--- NOTE | 2019-09-26 03:58 | ED.RN ---
no reaction noted by this nurse, shot time observed for greater than 15minutes.
== END 2019-09-26 04:29 | disposition home or self-care (01) ==
LOC: ED 03:45
PROVIDERS: Emergency Provider Emergency Medicine; PCP Nurse Practitioner Family
DX: S76.011A Strain of muscle, fascia and tendon of right hip, initial encounter (principal); W19.XXXA Unspecified fall, initial encounter; Y93.9 Activity, unspecified; Y92.9 Unspecified place or not applicable; F41.9 Anxiety disorder, unspecified; G89.29 Other chronic pain; Z79.899 Other long term (current) drug therapy; F17.200 Nicotine dependence, unspecified, uncomplicated
CPT/HCPCS: 96372; 99281

== ENCOUNTER 2019-10-01 15:13 | Emergency (ER) | payer MEDICARE, MEDICAID, SELFPAY ==
[2019-10-01 15:14] VITALS: BP 102/74; PULSE 81; RESP 16; TEMP 36.6; O2SAT 97; BMI 16.6
[2019-10-01] MEDS: Ondansetron 4 MG/2 ML Vial IV (15:42)
[2019-10-01] MEDS: 0.9% Normal Saline 1,000 ML 1000 ML IV (15:42)
[2019-10-01] MEDS: Morphine 4 MG/ML Syringe IV (15:42)
--- NOTE | 2019-10-01 15:45 | ED.DCSUM_ITS ---
History of Present Illness Chief Complaint: Lower Extremity Injury Informant: Patient Onset: Days Context: Onset with activity Timing: Intermittent Current Severity: Moderate Maximum Severity: Moderate Narrative: Patient is a 53-year-old female with medical history significant for right buttock pain that presents to the emergency department with increased pain and recurrent fall. I actually evaluated this patient about 5 days ago. She has been having this pain for about a year. She states that she has a follow-up in place at [facility], but not until the . She states she is been having increasing pain and spasm. She did have a fall on Tuesday. She did not strike her head or lose consciousness. She states that she just feels unwell because her pain is not controlled. She was in pain management and had injections, but states that seem to make her pain worse. Prior similar symptoms: Yes Recent Illness/Hospitalization: No Past Medical History - Allergies and Home Meds Allergies/Adverse Reactions: Allergies cortisone Allergy (Verified 10/01/19 15:14) Swelling latex Allergy (Verified 10/01/19 15:14) Itching Penicillins Allergy (Verified 10/01/19 15:14) Hives Primary Care Physician: Jaylin Diehl NP-C [Primary Care Provider] - Prior records reviewed: Yes Surgical History: hysterectomy Smoking Status: Current every day smoker Review of Systems General: Denies: Chills, Fever, Sweats Eyes: Denies: Visual changes - bilaterally, Diplopia ENT: Denies: Rhinorrhea, Sore throat Cardiovascular: Denies: Chest pain, Palpitations Respiratory: Denies: Dyspnea, Cough, Dyspnea on exertion Gastrointestinal: Denies: Abdominal pain, Nausea, Vomiting, Diarrhea, Melena, Hematochezia Genitourinary: Denies: Dysuria, Hematuria, Frequency Musculoskeletal: Reports: Myalgias, Arthralgias, Back pain. Denies: Extremity Pain Skin: Denies: Rash, Wounds Neurological: Denies: Headache, Weakness, Numbness Physical Exam Vital Signs/Narrative: Vital Signs Temp Pulse Resp BP Pulse Ox 10/01/19 15:14 97.8 F 81 16 102/74 97 Inital Vital Signs reviewed: Yes General: Well nourished, Well developed, No Acute Distress Head: Normocephalic, Atraumatic Eyes: Perrl, EOMI ENT: Moist mucous membranes, No rhinorrhea Neck: Supple, Nontender Cardiovascular: Regular rate, Regular rhythm, No murmurs Respiratory: No distress, CTA bilaterally, Chest nontender Abdomen: Soft, Nontender, Nondistended, Normal bowel sounds Back: Nontender, Normal Inspection Extremities: No edema, - - Obvious defect within the right gluteal area. Normal pulses of the lower extremities. Normal reflexes. Normal strength. Skin: Normal color, No rash Neurological: Alert, Oriented x3, Cranial nerves II-XII grossly intact, Normal Strength, Normal Sensation Psychological: Normal affect, Normal Mood Diagnostic/Tx/Re-eval - Medical Decision Making The patient presents with multiple complaints that do seem all to be related to her chronic pain. She has had recurrent fall. She has no obvious weakness. Metabolic work-up will be pursued to rule out other causes of her weakness and generalized malaise. Plain films will be obtained. The patient does have follow-up in place with orthopedics in 8 days. She is not currently established with pain management. I will give her a short course of acute pain control so that way she can use it sparingly until she is evaluated by orthopedics. I also counseled her that we would not give her further prescriptions from the emergency department. Impression 1. Exacerbation of right buttock pain ED Disposition - Plan for ED Patient: Instructions: ED Sprain Hip Prescriptions: Hydrocodone Bitart/Apap 5-325 [Logan 5MG-325MG] 1 tab PO Q6H PRN PRN 3 Days #10 tab PRN Reason: Pain Prescription Printed Referrals: Jaylin Diehl NP-C [Primary Care Provider] - Additional Instructions: Please try to use the pain medication sparingly. This will be the only prescription we are able to provide until you see follow-up with orthopedics in [place].
--- NOTE | 2019-10-01 15:48 | RAD_ITS ---
STUDY: X-RAY - PELVIS AND RIGHT HIP REASON FOR EXAM: Female, 53 years old. R HIP PAIN WITH FREQUENT FALLS. ALSO TAILBONE PAIN TECHNIQUE: 3 views of the pelvis and hip. COMPARISON: April 03, 2019 FINDINGS: There is a non-specific bowel gas pattern. Normal visualized soft tissue structures. Normal bilateral iliac wings, sacroiliac joints and visualized sacrum. Normal bilateral superior and inferior pubic rami. Normal pubic symphysis. Normal bilateral ischial tuberosities. Normal visualized femoral head. Normal acetabulum. Normal hip joint. RAD/HIP, UNI W/ Pelvis 2-3 Views IMPRESSION: Normal x-ray examination of the pelvis and hip. Electronically Signed: Domingo Moura MD at 16:10 EDT , Service support ,
[2019-10-01 16:02] LABS: Absolute Lymphocyte Count 3.25 X10^3/uL (0.83-4.51); Basophil# 0.06 X10^3/uL; Basophil% 0.6 % (0-1); Eosinophils% 2.1 % (0-5); Hematocrit 41.6 % (37-47); Hemoglobin 13.3 g/dL (12.0-15.0); Lymphocyte # 3.25 X10^3/ul (4.0); Lymphocyte % 34.4 % (19-41); Mean Corpuscular Hgb 30.2 pg (27.0-32.0); Mean Corpuscular Volume 94.5 fL (81-99); Mean Platelet Vol. 8.9 fl (6.2-12.0); Monocyte# 0.96 X10^3/uL; Monocyte% 10.1 % (0-10); NRBC Flagged by Analyzer 0 % (0-5); Neutrophil # 4.96 X10^3/uL (2.7-7.7); Neutrophil % 52.5 % (47-70); Platelet Count 381 K/mm3 (150-450); RBC Distribution Width SD 44.6 fl (35.1-43.9); White Blood Count 9.5 K/mm3 (4.4-11.0)
[2019-10-01 16:22] LABS: ALB/GLOB Ratio 1.2 RATIO (0.9-2.4); AST(SGOT) 14 U/L (15-37); Alanine Aminotransfer ALT/SGPT 22 U/L (13-56); Albumin, Serum 3.9 g/dL (3.2-5.0); Alkaline Phosphatase 97 U/L (45-117); Anion Gap 6 (5-15); BUN 14 mg/dL (7-18); BUN/Creat Ratio 19.3 RATIO (10-20); Calcium,Total 9.1 mg/dL (8.5-10.1); Chloride 107 mmol/L (98-107); Creatinine, Serum 0.73 mg/dL (0.55-1.02); EST Glomerular Filtration Rate 89 mL/min (>60); Est Glom Filt Rate - Afr Amer 107 mL/min (>60); Estimated Creatinine Clearance 63.82 ml/min; Globulin 3.2 g/dL (2.2-4.2); Glucose 90 mg/dL (74-106); Potassium 3.8 mmol/L (3.5-5.1); Protein, Total 7.1 g/dL (6.4-8.2); Sodium Level 140 mmol/L (136-145)
[2019-10-01 17:29] LABS: Mucous, Urine 0 SEEN /hpf (<or=2+); Red Blood Cells-Urine 0 SEEN /hpf (0-5); White Blood Cells 0 SEEN /hpf (0-5)
[2019-10-01 17:51] LABS: Color, Urine Yellow (Yellow); Glucose, Dipstick Normal (Normal); Ketone-Dipstick Negative (Negative); Leukocyte Esterase-Dipstick Negative /ul (Negative); Nitrite-Dipstick Negative (Negative); Occult Blood-Urine Negative /ul (Negative); Protein-Dipstick Negative (Negative); Specific Gravity, Urine 1.025 (1.002-1.030); Urine Bilirubin Dipstick Negative (Negative); Urine Clarity Sl. Cloudy (Clear); Urine Urobilinogen Normal (Normal)
[2019-10-01 18:27] LABS: Bacteria RARE /hpf (None Seen); Squamous Epithelial Cells - UA 0-5 SEEN /hpf (5-10)
[2019-10-01 18:40] VITALS: BP 152/89; PULSE 72; RESP 16; O2SAT 100
[2019-10-01 18:41] VITALS: BP 152/89; PULSE 72; RESP 16; O2SAT 100
== END 2019-10-01 18:45 | disposition home or self-care (01) ==
LOC: ED 15:34
PROVIDERS: Emergency Provider Emergency Medicine; PCP Nurse Practitioner Family
DX: M79.18 Myalgia, other site (principal); G89.29 Other chronic pain; R29.6 Repeated falls; F17.200 Nicotine dependence, unspecified, uncomplicated; Z79.899 Other long term (current) drug therapy
CPT/HCPCS: 73502; 80053; 81001; 85025; 96361; 96374; 96375; 99283; J7030; A4216; J2405

== ENCOUNTER 2019-10-14 02:05 | Emergency (ER) | payer MEDICARE, MEDICAID, SELFPAY ==
[2019-10-14 02:08] VITALS: BP 136/104; PULSE 77; RESP 15; TEMP 36.6; O2SAT 98; BMI 18.3
--- NOTE | 2019-10-14 02:39 | RAD_ITS ---
STUDY: X-RAY - RIGHT SHOULDER REASON FOR EXAM: Female, 53 years old. S/P FALL -- C/O RT SHOULDER PAIN TECHNIQUE: 4 view(s) of the shoulder. COMPARISON: None. FINDINGS: Normal glenohumeral articulation. Normal acromioclavicular joint. Normal acromion. Normal humeral head and visualized proximal humerus. The soft tissue structures are unremarkable. Normal visualized pulmonary apex. RAD/Shoulder min 2 Views IMPRESSION: Normal x-ray examination of the shoulder. Electronically Signed: Vernon Christopher, at 3:33 EDT Tel , Service support ,
--- NOTE | 2019-10-14 02:39 | RAD_ITS ---
STUDY: X-RAY - PELVIS AND RIGHT HIP REASON FOR EXAM: Female, 53 years old. FALL -- CHRONIC RT HIP PAIN -- HX OF FALLS TECHNIQUE: 3 views of the pelvis and hip. COMPARISON: None. FINDINGS: There is a non-specific bowel gas pattern. Normal visualized soft tissue structures. Normal bilateral iliac wings, sacroiliac joints and visualized sacrum. Normal bilateral superior and inferior pubic rami. Normal pubic symphysis. Normal bilateral ischial tuberosities. Normal visualized femoral head. Normal acetabulum. Normal hip joint. RAD/HIP, UNI W/ Pelvis 2-3 Views IMPRESSION: Normal x-ray examination of the pelvis and hip. Electronically Signed: Vernon Christopher, at 3:29 EDT Tel , Service support ,
--- NOTE | 2019-10-14 02:40 | ED.DCSUM_ITS ---
History of Present Illness Chief Complaint: Fall Informant: Patient Narrative: 3-year-old female presenting with acute on chronic right hip pain as well as right shoulder pain. She states that she has a history of right hip pain and sometimes she has muscle spasms which cause her to fall. She was recently seen and had lab work performed which was normal. She had follow-up with [facility] who performed MRI and told her that she had a gluteal tear. She was referred to a pain management physician who could do injections but she states that he did not accept her insurance. She states he does not get anything for pain on a regular basis. She states today her leg went into spasm and she fell and she struck her right hip and right shoulder. She denies head injury or LOC. She states this is a chronic issue. He states he seen multiple physicians for this and none of them can help her. Past Medical History - Allergies and Home Meds Allergies/Adverse Reactions: Allergies cortisone Allergy (Verified 10/01/19 15:14) Swelling latex Allergy (Verified 10/01/19 15:14) Itching Penicillins Allergy (Verified 10/01/19 15:14) Hives Primary Care Physician: Jaylin Diehl NP-C [Primary Care Provider] - Prior records reviewed: Yes Surgical History: hysterectomy Smoking Status: Current every day smoker Review of Systems General: Denies: Chills, Fever Eyes: Denies: Visual changes - bilaterally, Diplopia ENT: Denies: Rhinorrhea, Sore throat Cardiovascular: Denies: Chest pain, Palpitations Respiratory: Denies: Dyspnea, Cough, Dyspnea on exertion Gastrointestinal: Denies: Abdominal pain, Nausea, Vomiting, Diarrhea, Melena, Hematochezia Musculoskeletal: Reports: Extremity Pain - Hip and right shoulder pain Skin: Denies: Rash, Abscess Neurological: Denies: Headache Hematologic: Denies: Easy bruising, Easy bleeding Physical Exam Vital Signs/Narrative: Vital Signs Temp Pulse Resp BP Pulse Ox 10/14/19 02:08 97.9 F 77 15 136/104 H 98 General: Well nourished, Well developed, No Acute Distress Head: Normocephalic, Atraumatic Eyes: Perrl, EOMI Cardiovascular: Regular rate, Regular rhythm Extremities: - - Tenderness to palpation over the right hip. Patient is able to flex and abductor the hip for examination. Negative logroll.There is tenderness palpation over the anterior right shoulder. There is no deformity. Patient is able to flex, extend, abduction the shoulder but states it is painful. There is no bruising or rash. Skin: Normal color, No rash Diagnostic/Tx/Re-eval - Medical Decision Making She was seen and evaluated for right hip pain and right shoulder pain. She has a chronic right hip pain which acutely exacerbated by falling. She states this is fairly normal for her to have muscle spasm and fall. She did not hit her head or lose consciousness. She denies dizziness, lightheadedness, chest pain, shortness of breath or any preceding factors other than muscle spasm which is common for her. X-rays of the right hip and right shoulder were negative. She was given a dose of morphine in the ED which she states did not even touch her pain. She was given a Percocet prior to discharge. She is counseled to follow- up with pain management and with her orthopedic doctors. Impression: 1. Mechanical fall 2. Right hip contusion 3. Right shoulder contusion ED Disposition - Plan for ED Patient: Disposition: Home or Assisted Living Instructions: ED Mechanical Fall, ED CONTUSION Hip, ED Contusion Shoulder Referrals: Jaylin Diehl NP-C [Primary Care Provider] -
[2019-10-14] MEDS: Ondansetron ODT 4 MG Tablet 8 MG PO (02:58)
[2019-10-14] MEDS: morphine 8 MG/ML Syringe 6 MG IV (02:59)
--- NOTE | 2019-10-14 03:53 | ED.RN ---
PT STATES SHE DOES NOT HAVE A RIDE HOME. DR. ALVARADO CONSULTED AND OXYIR WAS NOT GIVEN. PT STATED MORPHINE DIDN'T DO ANYTHING FOR MY PAIN BECAUSE THEY GAVE ME THE SHOT IN MY ARM. IF ITS GIVEN IN MY HIP OR LEG, IT WORKS.
== END 2019-10-14 03:56 | disposition home or self-care (01) ==
LOC: ED 03:28
PROVIDERS: Emergency Provider Student in an Organized Health Care Education/Training Program; PCP Nurse Practitioner Family
DX: S70.01XA Contusion of right hip, initial encounter (principal); S40.011A Contusion of right shoulder, initial encounter; W19.XXXA Unspecified fall, initial encounter; Y93.9 Activity, unspecified; Y92.9 Unspecified place or not applicable; F17.200 Nicotine dependence, unspecified, uncomplicated
CPT/HCPCS: 73030; 73502; 96374; 99284

== ENCOUNTER 2019-11-08 02:46 | Emergency (ER) | payer MEDICARE, MEDICAID, SELFPAY ==
[2019-11-08 02:47] VITALS: BP 163/103; PULSE 89; RESP 16; TEMP 36.6; O2SAT 98; BMI 19.4
[2019-11-08 02:50] VITALS: BP 163/103; PULSE 81; RESP 16; TEMP 36.6; O2SAT 98
--- NOTE | 2019-11-08 02:59 | RAD_ITS ---
STUDY: X-RAY - PELVIS AND RIGHT HIP REASON FOR EXAM: Female, 53 years old. S/P FALL -- C/O RT SHOULDER AND HIP PAIN TECHNIQUE: 3 views of the pelvis and hip. COMPARISON: 10/14/2019. FINDINGS: There is a non-specific bowel gas pattern. Normal visualized soft tissue structures. Normal bilateral iliac wings, sacroiliac joints and visualized sacrum. Normal bilateral superior and inferior pubic rami. Normal pubic symphysis. Normal bilateral ischial tuberosities. Normal visualized femoral head. Normal acetabulum. Normal hip joint. RAD/HIP, UNI W/ Pelvis 2-3 Views IMPRESSION: Normal x-ray examination of the pelvis and hip. Electronically Signed: Cyrus Smith MD at 3:41 EDT , Service support ,
--- NOTE | 2019-11-08 02:59 | RAD_ITS ---
STUDY: X-RAY - RIGHT SHOULDER REASON FOR EXAM: Female, 53 years old. S/P FALL -- C/O RT SHOULDER AND HIP PAIN TECHNIQUE: 4 view(s) of the shoulder. COMPARISON: 10/14/2019. FINDINGS: Normal glenohumeral articulation. There is degenerative arthrosis of the acromioclavicular joint with mild winferior osseous spur formation. Normal acromion. Normal humeral head and visualized proximal humerus. The soft tissue structures are unremarkable. Normal visualized pulmonary apex. RAD/Shoulder min 2 Views IMPRESSION: Degenerative changes of the AC joint. No demonstrated fracture, dislocation, or destructive osseous lesion. Electronically Signed: Cyrus Smith MD at 3:36 EDT , Service support ,
--- NOTE | 2019-11-08 03:00 | ED.DCSUM_ITS ---
History of Present Illness Chief Complaint: Lower Extremity Injury Informant: Patient Onset: Today Narrative: Patient presents by EMS from home for mechanical fall after getting out of bed reporting worsening right hip pain and right shoulder pain. History of right gluteal tear diagnosed back in June, has seen orthopedist with no surgical intervention. She is seeing a couple pain management physicians, she has had a back injection. She states is currently followed by Dr. Wharton. She states she has back pain since the injection. Her PCP has recently written for tramadol for pain control. She still has some left at home. Her last dose was 9 hours ago. She denies any head injuries or any neck pain. She ambulates with a cane and also has a walker. She states she fell forward catching herself however exacerbated her pains. Prior similar symptoms: Yes Past Medical History - Allergies and Home Meds Allergies/Adverse Reactions: Allergies cortisone Allergy (Verified 10/01/19 15:14) Swelling latex Allergy (Verified 10/01/19 15:14) Itching Penicillins Allergy (Verified 10/01/19 15:14) Hives Primary Care Physician: Jaylin Diehl NP-C [Primary Care Provider] - Past Medical History: - - COPD, anxiety, depression, history of right gluteal tear Surgical History: hysterectomy Smoking Status: Current every day smoker Review of Systems General: Denies: Chills, Fever, Sweats Eyes: Denies: Visual changes - bilaterally, Diplopia ENT: Denies: Rhinorrhea, Sore throat Cardiovascular: Denies: Chest pain, Palpitations Respiratory: Denies: Dyspnea, Cough, Dyspnea on exertion Gastrointestinal: Denies: Abdominal pain, Nausea, Vomiting, Diarrhea, Melena, Hematochezia Genitourinary: Denies: Dysuria, Hematuria, Frequency Musculoskeletal: Reports: Arthralgias. Denies: Back pain, Extremity Pain Skin: Denies: Rash, Wounds Neurological: Denies: Headache, Weakness, Numbness Physical Exam Vital Signs/Narrative: Vital Signs Temp Pulse Resp BP Pulse Ox 11/08/19 02:50 97.9 F 81 16 163/103 H 98 11/08/19 02:47 97.9 F 89 16 163/103 H 98 Inital Vital Signs reviewed: Yes General: Well nourished, Well developed, No Acute Distress Head: Normocephalic, Atraumatic Eyes: Perrl, EOMI ENT: Moist mucous membranes, No rhinorrhea Neck: Supple, Nontender Cardiovascular: Regular rate, Regular rhythm, No murmurs Respiratory: No distress, CTA bilaterally, Chest nontender Abdomen: Soft, Nontender, Nondistended, Normal bowel sounds Back: Nontender, Normal Inspection Extremities: No edema, - - Right upper extremity: No clavicular tenderness there is mild tenderness proximal humerus without any deformities. Passive full range of motion. No elbow tenderness. Skin intact. Neurovascular intact distally. Right lower extremity: tender palpation right gluteal region, negative logroll of the hip. No deformities. No shortening or rotation. Skin intact. Neurovascular intact. Skin: Normal color, No rash Neurological: Alert, Oriented x3, Cranial nerves II-XII grossly intact, Normal Strength, Normal Sensation Psychological: Normal affect, Normal Mood Diagnostic/Tx/Re-eval Clinical Impression(s) from Imaging Studies Hip/Pelvis X-Ray 11/08/19 02:59 IMPRESSION: Normal x-ray examination of the pelvis and hip. Electronically Signed: Cyrus Smith MD at 3:41 EDT , Service support , Shoulder X-Ray 11/08/19 02:59 IMPRESSION: Degenerative changes of the AC joint. No demonstrated fracture, dislocation, or destructive osseous lesion. Electronically Signed: Cyrus Smith MD at 3:36 EDT , Service support , - Medical Decision Making There is no deformities, her reported fall with injuries. X-ray of the right shoulder 2 views and hip 2 views with pelvis reviewed by myself initially showed no acute process. Later radiology read also negative. She was treated with oxycodone in the ED. Patient was updated on her image studies. She is able to ambulate with no worsening symptoms. She has meloxicam and tramadol's at home to take. She will be discharged with outpatient follow-up. ED Disposition - Plan for ED Patient: Disposition: Home or Assisted Living Diagnosis: Contusion of right hip, Right shoulder strain Instructions: ED CONTUSION Hip, ED Strain Muscle Ext Referrals: Jaylin Diehl, CIVILIAN TECHNICIAN-C [Primary Care Provider] - 3-5 Days
[2019-11-08 03:07] VITALS: BP 159/81; PULSE 82; RESP 18; O2SAT 98
[2019-11-08] MEDS: oxyCODONE 5 MG Tablet PO (03:07)
[2019-11-08 04:09] VITALS: RESP 20
== END 2019-11-08 04:10 | disposition home or self-care (01) ==
PROVIDERS: Emergency Provider Emergency Medicine; PCP Nurse Practitioner Family
DX: S70.01XA Contusion of right hip, initial encounter (principal); S46.911A Strain of unspecified muscle, fascia and tendon at shoulder and upper arm level, right arm, initial encounter; W19.XXXA Unspecified fall, initial encounter; Y93.9 Activity, unspecified; Y92.009 Unspecified place in unspecified non-institutional (private) residence as the place of occurrence of the external cause; J44.9 Chronic obstructive pulmonary disease, unspecified; F41.9 Anxiety disorder, unspecified; F32.9 Major depressive disorder, single episode, unspecified; Z79.899 Other long term (current) drug therapy; F17.200 Nicotine dependence, unspecified, uncomplicated
CPT/HCPCS: 73030; 73502; 99284

== ENCOUNTER → 2019-11-09 08:13 | Outpatient (CLI) | payer MEDICARE, MEDICAID, SELFPAY ==
[2019-10-14 02:08] VITALS: BMI 18.3
[2019-11-08 02:47] VITALS: BMI 19.4
--- NOTE | 2019-11-09 08:15 | US_ITS ---
STUDY: ULTRASOUND BREAST - RIGHT REASON FOR EXAM: Female, 53 years old. Palpable lump in the right breast. TECHNIQUE: Axial and longitudinal images of the RIGHT breast were performed with a high resolution ultrasound transducer. # OF IMAGES: 25 COMPARISON: Comparison is made with prior mammogram done earlier in the day. FINDINGS: RIGHT Breast: The right periareolar region as well as the upper medial aspect of the right breast was examined by ultrasound. No sonographic abnormality is seen. US/Breast Limited Unilateral IMPRESSION: No sonographic abnormality is seen. ASSESSMENT CATEGORY: BIRADS Category 1: Negative. A letter regarding these results will be sent to the patient by the facility within 30 days. Electronically Signed: Geremias Hernandez, at 11:05 EDT , Service support ,
--- NOTE | 2019-11-09 08:15 | BI_ITS ---
MAMMOGRAPHY - BILATERAL DIAGNOSTIC REASON FOR EXAM: Female, 53 years old. Inversion of the right nipple with occasional discharge. Pea-sized lump in the upper inner quadrant of the breast. PERTINENT HISTORY: Non-contributory. TECHNIQUE: Digital bilateral breast maximus (3D mammographic acquisition) in the CC and MLO projections. 2-D mediolateral oblique (MLO) and craniocaudad (CC) views of both breasts were obtained. CAD: Full Field Digital Mammography with Computer Added Detection was performed. COMPARISON: Comparison is made with prior abdomen examination dated 12/28/2017. FINDINGS: Breast Composition: The breasts are heterogeneously dense, which may obscure small masses. There are no dominant masses or suspicious calcifications. No other significant abnormalities are identified. There has been no significant change since the prior study. BI/DIAG MAMM W/CAD, BILAT IMPRESSION: Stable bilateral diagnostic mammogram. With the patient''s history of left breast lump, correlation with ultrasound is recommended. ASSESSMENT CATEGORY: BIRADS Category 0: Incomplete. Need additional imaging evaluation. A letter regarding these results will be sent to the patient by the facility within 30 days. Approximately 10% of breast cancers are not detected by mammography. A normal mammogram should not delay biopsy of a clinically suspicious abnormality. Electronically Signed: Geremias Hernandez, at 11:06 EDT , Service support ,
== END ==
PROVIDERS: PCP Nurse Practitioner Family; Referring Provider Nurse Practitioner Family; Visit Provider Nurse Practitioner Family
DX: N64.59 Other signs and symptoms in breast (principal); N63.10 Unspecified lump in the right breast, unspecified quadrant
CPT/HCPCS: 76642; 77062; 77066; G0279

== ENCOUNTER → 2019-11-14 09:26 | Outpatient (CLI) | payer MEDICARE, MEDICAID, SELFPAY ==
[2019-11-08 02:47] VITALS: BMI 19.4
--- NOTE | 2019-11-14 09:35 | MRI_ITS ---
STUDY: MRI RIGHT HIP REASON FOR EXAM: Female, 53 years old. RT HIP DEFORMITY,TRAUMA -- continued rt hip;sacral pain x 1 year, falls TECHNIQUE: Standardized fat and water weighted pulse sequences were obtained in all 3 orthogonal planes. COMPARISON: X-ray 11/08/2019, MRI 06/29/2019 FINDINGS: Normal hip joint without articular joint space narrowing. Normal acetabulum. Normal labrum. Normal femoral head. Normal femoral neck and intratrochanteric region. Normal gluteus minimus, medius and iliopsoas tendons and distal insertions. There is no trochanteric, iliopsoas or iliopectineal bursitis. Normal superior and inferior pubic rami. Normal pubic symphysis. Normal ischial tuberosity. Normal origin of the hamstring tendons. Normal visualized iliac wing, sacroiliac joint, and sacral ala. Focal edema of the subcutaneous fat of the posterior to the gluteus kesha. MRI/Lower Ext Joint Only (Routine) IMPRESSION: Normal MRI of the hip. Electronically Signed: Constantino Mike MD at 11:19 EDT Tel , Service support ,
== END ==
PROVIDERS: PCP Nurse Practitioner Family; Referring Provider Nurse Practitioner Family; Visit Provider Nurse Practitioner Family
DX: M21.951 Unspecified acquired deformity of right thigh (principal)
CPT/HCPCS: 73721

== ENCOUNTER 2019-12-01 04:50 | Emergency (ER) | payer MEDICARE, MEDICAID, SELFPAY ==
[2019-12-01 04:51] VITALS: BP 173/87; PULSE 94; RESP 15; TEMP 36.8; O2SAT 97; BMI 18.8
--- NOTE | 2019-12-01 05:15 | ED.DCSUM_ITS ---
History of Present Illness Chief Complaint: Lower Extremity Injury Detail of Chief Complaint: Acute on chronic right hip pain Informant: Patient Current Severity: Moderate Maximum Severity: Severe Narrative: Patient presents secondary to chronic right hip pain that is recently flared. Pain is been ongoing for quite some time. She had multiple work-ups and evaluations. Patient states they seem to find things wrong but states there is nothing that they can do to fix it. She reports a history of a gluteal tear. She had an MRI of her right hip performed on November 13 that showed a focal area of edema in the subcu fat posterior to the gluteus kesha. Gluteal tendons were all intact. No bony abnormality noted. Patient states that she did trip earlier tonight and caught herself before falling but that seemed to exacerbate her pain. She does have tramadol that she takes on a regular basis. She is asking for a shot of morphine to calm the pain down. - Past Medical History (1) Anxiety and depression Status: Chronic (2) COPD (chronic obstructive pulmonary disease) Status: Chronic (3) High cholesterol Status: Acute (4) Hypertension Status: Chronic (5) Kidney stone Status: Resolved (6) PTSD (post-traumatic stress disorder) Status: Chronic Past Medical History - Allergies and Home Meds Allergies/Adverse Reactions: Allergies cortisone Allergy (Verified 10/01/19 15:14) Swelling latex Allergy (Verified 10/01/19 15:14) Itching Penicillins Allergy (Verified 10/01/19 15:14) Hives Primary Care Physician: Jaylin Diehl ASSISTANT PASSENGER LOCOMOTIVE ENGINEER, ASSISTANT PASSENGER LOCOMOTIVE ENGINEER-C [Primary Care Provider] - Prior records reviewed: Yes Surgical History: hysterectomy Lives: Alone Smoking Status: Current every day smoker Review of Systems General: Denies: Chills, Fever Eyes: Denies: Visual changes - bilaterally ENT: Denies: Bilateral ear pain Cardiovascular: Denies: Chest pain Respiratory: Denies: Dyspnea, Cough Gastrointestinal: Denies: Abdominal pain, Nausea, Vomiting, Diarrhea Musculoskeletal: Reports: Back pain, Extremity Pain Skin: Denies: Rash Neurological: Denies: Headache Hematologic: Denies: Easy bruising, Easy bleeding Allergy: Denies: Uticaria Physical Exam Vital Signs/Narrative: Vital Signs Temp Pulse Resp BP Pulse Ox 12/01/19 04:51 98.2 F 94 15 173/87 H 97 Inital Vital Signs reviewed: Yes General: Well nourished, Well developed Head: Normocephalic ENT: Moist mucous membranes Neck: Supple Cardiovascular: Regular rate, Regular rhythm Respiratory: No distress, CTA bilaterally Abdomen: Soft, Nontender Extremities: - - Tenderness palpation over the right SI joint and right gluteus region. No pain over the thigh itself at this time. Strong distal pulses. Skin: Normal color Neurological: Alert, Oriented x3 Psychological: Normal affect Diagnostic/Tx/Re-eval - Medical Decision Making Patient is given IM injection of morphine here for pain control. She will continue her tramadol at home and follow-up with her physicians. With no new fall I do not feel that repeat imaging is needed at this time. ED Disposition - Plan for ED Patient: Disposition: Home or Assisted Living Diagnosis: Right hip pain Instructions: ED Back Pain Acute or Chronic, ED Chronic Pain Referrals: Jaylin Diehl ASSISTANT PASSENGER LOCOMOTIVE ENGINEER, ASSISTANT PASSENGER LOCOMOTIVE ENGINEER-C [Primary Care Provider] - 3-5 Days if not improving
[2019-12-01] MEDS: morphine 10 MG/ML Syringe IM (05:23)
[2019-12-01 05:45] VITALS: BP 156/80
== END 2019-12-01 05:46 | disposition home or self-care (01) ==
PROVIDERS: Emergency Provider Emergency Medicine; PCP Nurse Practitioner Family
DX: M25.551 Pain in right hip (principal); G89.29 Other chronic pain; I10 Essential (primary) hypertension; F41.9 Anxiety disorder, unspecified; F32.9 Major depressive disorder, single episode, unspecified; J44.9 Chronic obstructive pulmonary disease, unspecified; E78.00 Pure hypercholesterolemia, unspecified; F43.10 Post-traumatic stress disorder, unspecified; Z87.442 Personal history of urinary calculi; Z79.899 Other long term (current) drug therapy; F17.200 Nicotine dependence, unspecified, uncomplicated
CPT/HCPCS: 96372; 99282

== ENCOUNTER 2019-12-09 01:44 | Emergency (ER) | payer MEDICARE, MEDICAID, SELFPAY ==
[2019-12-09 01:45] VITALS: BP 151/92; PULSE 69; RESP 16; TEMP 36.9; O2SAT 98; BMI 19.9
[2019-12-09] MEDS: Morphine 4 MG/ML Syringe IM (02:33)
[2019-12-09] MEDS: Ketorolac 30 MG/ML Syringe IM (02:34)
--- NOTE | 2019-12-09 02:50 | ED.DCSUM_ITS ---
History of Present Illness Chief Complaint: Lower Extremity Injury Informant: Patient Onset: Today Context: Gradual Onset Timing: Continuous Quality: pain, spasm Location: righr buttock, w/ radiation into lateral thigh and prox lower leg Current Severity: Severe Maximum Severity: Severe Worsened by: moving, walking Relieved by: medication in ER Associated Symptoms: none Narrative: Patient states she has been having chronic pain in her right buttock/back and into her right lower extremity, it has been since a hysterectomy that she had last year. They have been trying to figure out why she is having this pain, she had an MRI of the hip, she is scheduled to have another MRI and follow-up, she has been here several times for this before and states that at times like now, she gets in such severe muscle spasms that her medications are not enough to help with pain which is severe. She is asking for what ever shot I got last time. She denies any new injuries or obvious explanation for the flareup this time. Past Medical History - Allergies and Home Meds Allergies/Adverse Reactions: Allergies cortisone Allergy (Verified 12/09/19 01:49) Swelling latex Allergy (Verified 12/09/19 01:49) Itching Penicillins Allergy (Verified 12/09/19 01:49) Hives Primary Care Physician: Jaylin Diehl INSTRUMENT REPAIRER HELPER, INSTRUMENT REPAIRER HELPER-C [Primary Care Provider] - Surgical History: hysterectomy Smoking Status: Current every day smoker Review of Systems General: Denies: Chills, Fever, Sweats Musculoskeletal: Reports: Back pain, Extremity Pain. Denies: Neck pain Neurological: Denies: Headache, Weakness, Numbness Physical Exam Vital Signs/Narrative: Vital Signs Temp Pulse Resp BP Pulse Ox 12/09/19 01:45 98.4 F 69 16 151/92 H 98 Inital Vital Signs reviewed: Yes General: Well nourished, Well developed, No Acute Distress Head: Normocephalic, Atraumatic Back: Normal Inspection, - - Tender in the right buttock. Negative for: Spinal tenderness Extremities: No edema, Tenderness - Throughout lateral right thigh. All compartments soft and nondistended. Skin: Normal color, No rash, No Trauma Neurological: Alert, Oriented x3, Cranial nerves II-XII grossly intact, Normal Strength, Normal Sensation Psychological: Normal affect, Normal Mood Diagnostic/Tx/Re-eval - Medical Decision Making Patient was given injection of morphine and of Toradol. She was to leave immediately. She states she is having some improvement already. ED Disposition - Plan for ED Patient: Disposition: Home or Assisted Living Diagnosis: Right buttock pain Instructions: ED SPASM Muscle Referrals: Jaylin Diehl NP, INSTRUMENT REPAIRER HELPER-C [Primary Care Provider] - As Needed
[2019-12-09 03:00] VITALS: BP 148/92; PULSE 69; RESP 16; O2SAT 98
== END 2019-12-09 03:01 | disposition home or self-care (01) ==
PROVIDERS: Emergency Provider Emergency Medicine; PCP Nurse Practitioner Family
DX: M54.5 Low back pain (principal); G89.29 Other chronic pain; F17.200 Nicotine dependence, unspecified, uncomplicated
CPT/HCPCS: 96372; 99282

== ENCOUNTER → 2019-12-13 13:41 | Outpatient (CLI) | payer MEDICARE, MEDICAID, SELFPAY ==
[2019-12-09 01:45] VITALS: BMI 19.9
--- NOTE | 2019-12-13 13:44 | MRI_ITS ---
HISTORY: BACK PAIN-right side EXAMINATION: MR Spine Lumbar W/O Contrast TECHNIQUE: Multiplanar and multisequence MR images of the lumbar spine. IV Contrast dosage and agent: None. COMPARISON: CT scan of the abdomen and pelvis from April 24, 2018 FINDINGS: VERTEBRAE: Normal vertebral body heights, alignment and lordosis. Marrow signal intensity is normal. No expansile or destructive lesion. CORD: Normal visualized portions of the spinal cord and cauda equina, with the tip of the conus medullaris at the T12 level. Within the sacrum, greater on the right than the left at the S1-S2 level there is a perineural cyst. SOFT TISSUES: Unremarkable. L1/L2: No disc bulge, central canal stenosis, or neural foraminal stenosis. L2/L3: No disc bulge, central canal stenosis, or neural foraminal stenosis. L3/L4: No disc bulge, central canal stenosis, or neural foraminal stenosis. L4/L5: No disc bulge, central canal stenosis, or neural foraminal stenosis. Mild ligamentum flavum thickening L5/S1: At the L5-S1 level there is a central disc protrusion. Ligamental thickening is mild. MRI/Spine Lumbar (Routine) IMPRESSION: L5-S1 central right paracentral disc protrusion without neural impingement. Right sided S1-S2 perineural cysts. at 0436 Reported and signed by: Gordo Hayes MD Electronically Signed: Gordo Hayes MD at 4:35 EDT Tel , Service support ,
== END ==
PROVIDERS: PCP Nurse Practitioner Family; Referring Provider Nurse Practitioner Family; Visit Provider Nurse Practitioner Family
DX: M54.9 Dorsalgia, unspecified (principal)
CPT/HCPCS: 72148

== ENCOUNTER 2019-12-14 03:56 | Emergency (ER) | payer MEDICARE, MEDICAID, SELFPAY ==
[2019-12-14 03:57] VITALS: BP 182/106; PULSE 74; RESP 16; TEMP 35.7; O2SAT 96; BMI 19.1
--- NOTE | 2019-12-14 04:06 | ED.DCSUM_ITS ---
History of Present Illness Chief Complaint: Back Informant: Patient Onset: Today Context: Gradual Onset Timing: Continuous Current Severity: Moderate Maximum Severity: Moderate Narrative: The patient is a 54-year-old female with history of chronic low back and hip pain. The patient has been seen in the emergency department multiple times for exacerbations of her pain. She does have a defect in her posterior gluteal area since a fall over a year ago. She had MRI done of that area about a month ago which was unremarkable for acute hip pathology. Today she presents with increasing pain. She had MRI of her lumbar spine done yesterday. She states because she had to sit in the tube for almost an hour, it seemed to make her pain worse. She describes bandlike pain across her lower back into her buttock. It does not radiate all the way down the leg. She denies any weakness. She is had no difficulty urinating or moving her bowels. She is otherwise been in her normal state of health. Prior similar symptoms: Yes Recent Illness/Hospitalization: No Past Medical History - Allergies and Home Meds Allergies/Adverse Reactions: Allergies cortisone Allergy (Verified 12/14/19 03:59) Swelling latex Allergy (Verified 12/14/19 03:59) Itching Penicillins Allergy (Verified 12/14/19 03:59) Hives Primary Care Physician: Jaylin Diehl RESPITE COORDINATOR, RESPITE COORDINATOR-C [Primary Care Provider] - Prior records reviewed: Yes Past Medical History: - - Posterior gluteal defect Surgical History: hysterectomy Smoking Status: Current every day smoker Review of Systems General: Denies: Chills, Fever, Sweats Eyes: Denies: Visual changes - bilaterally, Diplopia ENT: Denies: Rhinorrhea, Sore throat Cardiovascular: Denies: Chest pain, Palpitations Respiratory: Denies: Dyspnea, Cough, Dyspnea on exertion Gastrointestinal: Denies: Abdominal pain, Nausea, Vomiting, Diarrhea, Melena, Hematochezia Genitourinary: Denies: Dysuria, Hematuria, Frequency Musculoskeletal: Reports: Back pain. Denies: Extremity Pain Skin: Denies: Rash, Wounds Neurological: Denies: Headache, Weakness, Numbness Physical Exam Vital Signs/Narrative: Vital Signs Temp Pulse Resp BP Pulse Ox 12/14/19 03:57 96.2 F L 74 16 182/106 H 96 Inital Vital Signs reviewed: Yes General: Well nourished, Well developed, No Acute Distress Head: Normocephalic, Atraumatic Eyes: Perrl, EOMI ENT: Moist mucous membranes, No rhinorrhea Neck: Supple, Nontender Cardiovascular: Regular rate, Regular rhythm, No murmurs Respiratory: No distress, CTA bilaterally, Chest nontender Abdomen: Soft, Nontender, Nondistended, Normal bowel sounds Back: Normal Inspection. Negative for: Spinal tenderness Extremities: Nontender, No edema Skin: Normal color, No rash Neurological: Alert, Oriented x3, Cranial nerves II-XII grossly intact, Normal Strength, Normal Sensation Psychological: Normal affect, Normal Mood Diagnostic/Tx/Re-eval - Medical Decision Making Patient presents with an exacerbation of her chronic pain. Her examination is reassuring. She has no red flag symptoms. There was no weakness of dorsiflexion, plantar flexion, or extensor hallucis longus. She has no abdominal pain. She has normal pulses in her lower extremities. Her MRI from yesterday has not been formally read yet. However, she has no symptoms consistent with cauda equina. She states this is all in her back without significant radiation. The patient was treated with IM medications. She will be discharged to follow-up with her primary care for MRI results and plan of care. Impression 1. Exacerbation of chronic low back pain ED Disposition - Plan for ED Patient: Instructions: ED Back Pain Acute or Chronic Referrals: Jaylin Diehl NP, RESPITE COORDINATOR-C [Primary Care Provider] -
[2019-12-14] MEDS: Ketorolac 30 MG/ML Syringe IM (04:10)
[2019-12-14] MEDS: Morphine 4 MG/ML Syringe IM (04:10)
[2019-12-14 04:39] VITALS: BP 157/92; RESP 16
== END 2019-12-14 05:16 | disposition home or self-care (01) ==
LOC: ED 04:12
PROVIDERS: Emergency Provider Emergency Medicine; PCP Nurse Practitioner Family
DX: M54.5 Low back pain (principal); G89.29 Other chronic pain; F17.200 Nicotine dependence, unspecified, uncomplicated
CPT/HCPCS: 96372; 99284

== ENCOUNTER 2019-12-18 22:03 | Emergency (ER) | payer MEDICARE, MEDICAID, SELFPAY ==
[2019-12-18 22:05] VITALS: BP 143/95; PULSE 86; RESP 14; TEMP 36.6; O2SAT 98; BMI 18.6
--- NOTE | 2019-12-18 22:59 | ED.VIS.GEN ---
History of Present Illness Chief Complaint: Back Informant: Patient Onset: - - Acute on chronic Current Severity: Moderate Maximum Severity: Severe Narrative: Patient has a history of chronic back pain and follows with Dr. Wharton. She had injections done this morning and states since that time she has had no relief of her pain. She was unable to get comfortable tonight came of the emergency room for evaluation. She states that she had a recent MRI done and has that report at bedside with her. This shows an L5-S1 central to right paracentral disc protrusion. She states that she was told by the office that she should follow-up with a back surgeon. Patient denies fever or chills. No urinary symptoms. No recent falls or injuries. - Past Medical History (1) High cholesterol Status: Chronic (2) Anxiety and depression Status: Chronic (3) COPD (chronic obstructive pulmonary disease) Status: Chronic (4) Hypertension Status: Chronic (5) PTSD (post-traumatic stress disorder) Status: Chronic Past Medical History - Allergies and Home Meds Allergies/Adverse Reactions: Allergies cortisone Allergy (Verified 12/14/19 03:59) Swelling latex Allergy (Verified 12/14/19 03:59) Itching Penicillins Allergy (Verified 12/14/19 03:59) Hives Primary Care Physician: Jaylin Diehl COLLECTOR OF PORT, COLLECTOR OF PORT-C [Primary Care Provider] - Prior records reviewed: Yes Surgical History: hysterectomy Lives: Alone Smoking Status: Current every day smoker Review of Systems General: Denies: Chills, Fever Eyes: Denies: Visual changes - bilaterally ENT: Denies: Bilateral ear pain Cardiovascular: Denies: Chest pain Respiratory: Denies: Dyspnea, Cough Gastrointestinal: Denies: Abdominal pain, Nausea, Vomiting, Diarrhea Musculoskeletal: Reports: Back pain Skin: Denies: Rash Neurological: Denies: Headache Hematologic: Denies: Easy bruising, Easy bleeding Allergy: Denies: Uticaria Physical Exam Vital Signs/Narrative: Vital Signs Temp Pulse Resp BP Pulse Ox 12/18/19 22:05 97.9 F 86 14 143/95 H 98 Inital Vital Signs reviewed: Yes General: Well nourished, Well developed Head: Normocephalic ENT: Moist mucous membranes Neck: Supple Cardiovascular: Regular rate, Regular rhythm Respiratory: No distress, CTA bilaterally Abdomen: Soft, Nontender Back: - - No focal tenderness. 3 puncture wounds noted to the right low lumbar region. No surrounding erythema or sign of infection. Skin: Normal color Neurological: Alert, Oriented x3, Normal Strength, Normal Sensation Psychological: Normal affect Diagnostic/Tx/Re-eval - Medical Decision Making Patient's MRI was reviewed. She has been in the ER for shots of pain medication previously for similar. She will be given morphine and Toradol IM now with a prescription for [place]more. She is given the phone number for spine surgery as well. ED Disposition - Plan for ED Patient: Disposition: Home or Assisted Living Diagnosis: Back pain Instructions: ED Back Pain Acute or Chronic Prescriptions: Hydrocodone Bitart/Apap 5-325 [[place] 5MG-325MG] 1 tablet PO Q6H PRN PRN 3 Days #10 tablet PRN Reason: Pain Transmission Status: Received by [facility] Referrals: Ole Restrepo DO [STAFF PHYSICIAN] - As soon as possible
[2019-12-18] MEDS: Ketorolac 30 MG/ML Syringe IM (23:20)
[2019-12-18] MEDS: morphine 8 MG/ML Syringe 6 MG IM (23:20)
[2019-12-18 23:26] VITALS: RESP 14
== END 2019-12-19 | disposition home or self-care (01) ==
PROVIDERS: Emergency Provider Emergency Medicine; PCP Nurse Practitioner Family
DX: M54.5 Low back pain (principal); G89.29 Other chronic pain; I10 Essential (primary) hypertension; J44.9 Chronic obstructive pulmonary disease, unspecified; F41.9 Anxiety disorder, unspecified; F32.9 Major depressive disorder, single episode, unspecified; F43.10 Post-traumatic stress disorder, unspecified; E78.00 Pure hypercholesterolemia, unspecified; Z79.899 Other long term (current) drug therapy; F17.200 Nicotine dependence, unspecified, uncomplicated
CPT/HCPCS: 96372; 99282

== ENCOUNTER 2019-12-22 10:01 | Emergency (ER) | payer MEDICARE, MEDICAID, SELFPAY ==
[2019-12-22 10:02] VITALS: BP 142/96; PULSE 105; RESP 20; TEMP 36.3; O2SAT 99; BMI 20.9
--- NOTE | 2019-12-22 10:25 | ED.DCSUM_ITS ---
History of Present Illness Informant: Patient Onset: Month(s) - several months Context: Gradual Onset Chronic pain exacerbated by: denies injury or trauma Injury: - - denies Timing: Continuous Quality: Sharp Location: Lumbar Current Severity: Severe Maximum Severity: Severe Worsened by: improves with: Movement, Ambulation, Bending Relieved by: Nothing Associated Symptoms: - - Denies any associated symptoms Narrative: 54-year-old female presents to the emergency department with back pain. Patient has chronic back pain. Patient currently in pain management. Patient states that she is under the care of both pain management and his spine surgeon and states that she needs surgery but is waiting for the surgery to be approved by her health insurance. She saw the spine surgeon yesterday. She states that she is going to be scheduled for surgery. She states that he told her that she could use Motrin and Tylenol for pain [id number] but she states that is not helping her pain. She states that when she comes to the emergency department she is normally given a dose of morphine. She has a prescription of Sunflower that she received from this emergency department earlier this week that she states is not helping. Denies any new trauma or injury she has not had a fever she denies any weakness or paresthesias loss of bowel or bladder function or any difficulties urinating or with constipation. No abdominal pain or rash. Denies any other review of systems. Prior similar symptoms: Yes, With Prior Back Pain Recent Illness/Hospitalization: No <Skyler Sharpe - Last Filed: 12/22/19 10:30> <Paco Luu - Last Filed: 12/22/19 10:37> Chief Complaint: Other, Pain/Inj Past Medical History Prior records reviewed: Yes Past Medical History: - - Chronic back pain Surgical History: hysterectomy Lives: Alone Smoking Status: Current every day smoker Alcohol: Occasional Drugs: None <Skyler Sharpe - Last Filed: 12/22/19 10:30> <Paco Luu - Last Filed: 12/22/19 10:37> - Allergies and Home Meds Allergies/Adverse Reactions: Allergies cortisone Allergy (Verified 12/22/19 10:02) Swelling latex Allergy (Verified 12/22/19 10:02) Itching Penicillins Allergy (Verified 12/22/19 10:02) Hives Primary Care Physician: Donn Wharton MD [STAFF PHYSICIAN] - As soon as possible Jaylin Diehl SALESFORCE BUSINESS ANALYST, SALESFORCE BUSINESS ANALYST-C [Primary Care Provider] - Review of Systems All systems negative except as indicated General: Denies: Chills, Fever, Sweats Eyes: Denies: Visual changes - bilaterally, Diplopia ENT: Denies: Rhinorrhea, Sore throat Cardiovascular: Denies: Chest pain, Palpitations Respiratory: Denies: Dyspnea, Cough, Dyspnea on exertion Gastrointestinal: Denies: Abdominal pain, Nausea, Vomiting, Diarrhea, Melena, Hematochezia Genitourinary: Denies: Dysuria, Hematuria, Frequency Musculoskeletal: Reports: Back pain. Denies: Myalgias, Arthralgias, Neck pain, Swelling, Extremity Pain Skin: Denies: Rash, Wounds Neurological: Denies: Headache, Weakness, Parasthesia, Numbness <Skyler Sharpe - Last Filed: 12/22/19 10:30> Physical Exam Vital Signs/Narrative: Vital Signs Temp Pulse Resp BP Pulse Ox 12/22/19 10:02 97.3 F L 105 H 20 H 142/96 H 99 Inital Vital Signs reviewed: Yes General: Well nourished, Well developed Head: Normocephalic, Atraumatic Eyes: Perrl, EOMI ENT: Moist mucous membranes, No rhinorrhea Neck: Supple, Nontender Cardiovascular: Regular rate, Regular rhythm, No murmurs Respiratory: No distress, CTA bilaterally, Chest nontender Abdomen: Soft, Nontender, Nondistended, Normal bowel sounds Back: Normal Inspection, Nontender, Paraspinal Tenderness, Negative SLR - Right, Negative SLR - Left. Negative for: Spinal tenderness Extremeties: Nontender, No edema Skin: Normal color, No rash Neuro: Alert, Oriented, Normal Strength, Normal Sensation, Normal DTR, Normal Gait, Normal Reflexes. Negative for: Weakness, Parasthesia Reflexes: Right Patellar, Right Achilles, Left Patellar, Left Achilles Psychological: Normal affect, Normal Mood <Skyler Sharpe - Last Filed: 12/22/19 10:30> Vital Signs/Narrative: Vital Signs Temp Pulse Resp BP Pulse Ox 12/22/19 10:02 97.3 F L 105 H 20 H 142/96 H 99 <Paco Luu - Last Filed: 12/22/19 10:37> Diagnostic/Tx/Re-eval - Medical Decision Making This is the patient's fifth visit to the emergency department over the last 3 weeks for chronic back pain. She has seen the surgeon yesterday who told her that she needs to manage her pain with Motrin and Tylenol. Patient told me that she normally comes to the emergency department and receives morphine. Discussed with her that at this time her surgeon recommends Motrin and Tylenol but do not feel that she needs narcotics for her chronic pain. In addition she does see pain management who does not feel she needs chronic narcotics for her pain either. The patient has no signs or symptoms of cauda equina syndrome she has not suffered trauma or injury and has no other findings that would necessitate acute imaging at this time. She will be given a dose of Toradol she will continue to use Motrin and Tylenol and follow-up with her surgeon and her pain management physician. <Skyler Sharpe - Last Filed: 12/22/19 10:30> - Medical Decision Making The patient presents with acute recurrent chronic lumbar back pain she saw her pain management physicians and surgeons yesterday she was told to manage her pain with [id number] medications, she is presenting asking be treated with morphine IM on exam her back is unremarkable vague discomfort no neurologic ab normalities on physical her by her history see the note for full details above I explained to her that given all of the above given the chronic nature of this condition that her pain management must be obtained from her outpatient providers but given the rules of [facility] and other regulators one provider should manage her pain if she is dissatisfied with how they are managing her pain she should discuss that with her providers she will be treated with Toradol and discharged home <Paco Luu - Last Filed: 12/22/19 10:37> ED Disposition <Skyler Sharpe - Last Filed: 12/22/19 10:30> <Paco Luu - Last Filed: 12/22/19 10:37> - Plan for ED Patient: Disposition: Home or Assisted Living Diagnosis: acute recurrent low back pain, COPD (chronic obstructive pulmonary disease), History of depression, Hypertension, High cholesterol Instructions: ED Back Pain Acute or Chronic Referrals: Jaylin Diehl SALESFORCE BUSINESS ANALYST, SALESFORCE BUSINESS ANALYST-C [Primary Care Provider] - Donn Wharton MD [STAFF PHYSICIAN] - As soon as possible
[2019-12-22] MEDS: Ketorolac 60 MG/2 ML Vial IM (10:47)
--- NOTE | 2019-12-22 11:10 | ED.RN ---
PT VERY IMPATIENT AND RUDE TO THE STAFF. PT REQUESTING TO LEAVE SOON THE SHOT WAS GIVEN. PT STATES I'M FINE I NEED TO LEAVE. I TOOK A PICTURE OF THAT BOARD WITH NAMES ON IT BECAUSE MY DOCTOR WANTS TO KNOW WHO TOOK CARE OF ME. THIS NURSE ATTEMPTED TO REVIEW D/C INSTRUCTIONS. PT STATES I ALREADY KNOW AND TOOK THE PAPERS FROM THIS NURSE'S HANDS. REGISTRATION IN THE ROOM ATTEMPTING TO REGISTER THE PT. PT STATES I WAS JUST HERE. JUST GIVE ME THE PAPER SO I CAN SIGN IT. PT WALKS OUT OF THE DEPARTMENT
== END 2019-12-22 11:14 | disposition home or self-care (01) ==
LOC: ED 11:13
PROVIDERS: Emergency Provider Physician Assistant Medical; PCP Nurse Practitioner Family
DX: M54.5 Low back pain (principal); G89.29 Other chronic pain; I10 Essential (primary) hypertension; J44.9 Chronic obstructive pulmonary disease, unspecified; F32.9 Major depressive disorder, single episode, unspecified; E78.00 Pure hypercholesterolemia, unspecified; Z79.899 Other long term (current) drug therapy; F17.200 Nicotine dependence, unspecified, uncomplicated
CPT/HCPCS: 96372; 99282

== ENCOUNTER 2020-01-20 09:14 | Emergency (ER) | payer MEDICARE, OTHER, SELFPAY ==
[2020-01-20 09:14] VITALS: BP 155/86; PULSE 91; RESP 16; TEMP 36.9; O2SAT 98; BMI 19.0
--- NOTE | 2020-01-20 09:30 | ED.VIS.BACK ---
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 This is consistent with her chronic back pain. She states that she is in pain management and is on tizanidine and Elsie with its not improving her pain. She denies any injury or trauma. She denies any weakness or paresthesias. She denies loss of bowel or bladder function. She denies difficulty urinating or constipation. She states that she has been seeing a Dr. Spicer who is her spine surgeon and that she is scheduled to have surgery in February. She still been able to ambulate. No fevers or chills. No cough chest pain or shortness of breath. No vomiting or diarrhea. No lightheadedness or dizziness. Prior similar symptoms: Yes, With Prior Back Pain Recent Illness/Hospitalization: No <Skyler Sharpe - Last Filed: 01/20/20 10:01> <Yefri Rodriguez - Last Filed: 01/20/20 10:27> Chief Complaint: Back Past Medical History Prior records reviewed: Yes Past Medical History: - - COPD Surgical History: hysterectomy Lives: Alone Smoking Status: Current every day smoker Alcohol: Occasional Drugs: None <Skyler Sharpe - Last Filed: 01/20/20 10:01> <Yefri Rodriguez - Last Filed: 01/20/20 10:27> - Allergies and Home Meds Allergies/Adverse Reactions: Allergies cortisone Allergy (Verified 01/20/20 09:17) Swelling latex Allergy (Verified 01/20/20 09:17) Itching Penicillins Allergy (Verified 01/20/20 09:17) Hives Primary Care Physician: Jaylin Diehl ELEVATOR INSTALLER APPRENTICE, ELEVATOR INSTALLER APPRENTICE-C [Primary Care Provider] - Review of Systems All systems negative except as indicated General: Denies: Chills, Fever, Sweats Eyes: Denies: Visual changes - bilaterally, Diplopia ENT: Denies: Rhinorrhea, Sore throat Cardiovascular: Denies: Chest pain, Palpitations Respiratory: Denies: Dyspnea, Cough, Dyspnea on exertion Gastrointestinal: Denies: Abdominal pain, Nausea, Vomiting, Diarrhea, Melena, Hematochezia Genitourinary: Denies: Dysuria, Hematuria, Frequency Musculoskeletal: Reports: Back pain. Denies: Myalgias, Arthralgias, Neck pain, Swelling, Extremity Pain Skin: Denies: Rash, Wounds Neurological: Denies: Headache, Weakness, Numbness <Skyler Sharpe - Last Filed: 01/20/20 10:01> Physical Exam Vital Signs/Narrative: Vital Signs Temp Pulse Resp BP Pulse Ox 01/20/20 09:14 98.5 F 91 16 155/86 H 98 Inital Vital Signs reviewed: Yes General: Well nourished, Well developed Head: Normocephalic, Atraumatic Eyes: Perrl, EOMI ENT: Moist mucous membranes, No rhinorrhea Neck: Supple, Nontender Cardiovascular: Regular rate, Regular rhythm, No murmurs Respiratory: No distress, CTA bilaterally, Chest nontender Abdomen: Soft, Nontender, Nondistended, Normal bowel sounds Back: Normal Inspection, Paraspinal Tenderness, Positive SLR - Right, Negative SLR - Left, - - Patient had pain on palpation over the right SI joint. She had a positive straight leg raise on the right and negative on the left. 5 out of 5 strength testing of both lower extremities. Normal pulses and sensation of both lower extremities. Extremeties: Nontender, No edema Skin: Normal color, No rash Neuro: Alert, Oriented, Normal Strength, Normal Sensation, Normal DTR, Normal Gait, Normal Reflexes Psychological: Normal affect, Normal Mood <Skyler Sharpe - Last Filed: 01/20/20 10:01> Vital Signs/Narrative: Vital Signs Temp Pulse Resp BP Pulse Ox 01/20/20 09:14 98.5 F 91 16 155/86 H 98 <Yefri Rodriguez - Last Filed: 01/20/20 10:27> Diagnostic/Tx/Re-eval - Medical Decision Making On exam the patient has no signs or symptoms of cauda equina syndrome. She is in pain management she takes Elsie and tizanidine. She will continue those medications and we gave her dose of Toradol. She was encouraged to follow-up closely with her pain management physician as well as her spine surgeon as scheduled. <Skyler Sharpe - Last Filed: 01/20/20 10:01> - Medical Decision Making Seen and evaluated independently and in conjunction with physician field research assistant. Agree with notes above unless documented otherwise. Patient with an acute exacerbation of chronic low back pain symptoms. No symptoms or signs on exam of neurologic compromise. She is ambulatory but states that she called an ambulance because she did not want to walk over here even though she [place] around the corner from the hospital and she does not drive. Negative straight leg raises, normal reflexes. She is in pain management under contract, which is the reason that we advised against narcotics here, she agrees and states she has a whole bottle of Vicodin and is okay with the injection of Toradol. <Yefri Rodriguez - Last Filed: 01/20/20 10:27> ED Disposition <Skyler Sharpe - Last Filed: 01/20/20 10:01> <Yefri Rodriguez - Last Filed: 01/20/20 10:27> - Plan for ED Patient: Disposition: Home or Assisted Living Diagnosis: COPD (chronic obstructive pulmonary disease), Acute exacerbation of chronic low back pain Instructions: ED Chronic Pain Referrals: Jaylin Diehl NP, ELEVATOR INSTALLER APPRENTICE-C [Primary Care Provider] -
[2020-01-20] MEDS: Ketorolac 30 MG/ML Syringe IM (10:01)
[2020-01-20 10:30] VITALS: BP 126/79
--- NOTE | 2020-02-05 12:43 | CM.ED ---
Social Work Consult: ED Care Plan approved. Telephone call to patient to updated on approval of ED Care Plan. Patient voiced understanding. Patient reports to be waiting on pulmonary to clear patient for back surgery through Dr. Spicer. Patient reports no current concerns and to have appointment with pulmonary on 2019. ED Care Plan and resources mailed to patient. Lindsay SHEEHAN, FIDEL
--- NOTE | 2020-02-19 14:00 | CM.ED ---
Addendum entered by Nadya Dennis 02/22/20 19:08: Received call from patient reporting surgery has been scheduled for 03/11/2020. Patient reports frustration because she is out of gabapentin as Dr. Wharton told patient to take 6/day. Patient states called Dr. Wharton's office first thing this morning because I was in pain. Patient states prescription was not called in for new amount and they will not fill prescription until Tuesday. Patient states since when did they have a patient call the pharmacy to tell them to up the amount?? Patient reports Dr. Wharton's office told her to speak with her primary care regarding prescription need. Patient requesting this worker note chart. Addendum entered by Nadya Dennis 02/21/20 10:58: Received call from Maddy with Rachele Diehl's office. Per Maddy, patient was seen in the office yesterday, 02/20/2020. Clearance for surgery was given. Maddy states all needed information was faxed to Dr. Spicer office and patient reported surgery is scheduled for the end of February. Addendum entered by Nadya Dennis 02/19/20 16:44: Received call back from Racheal with Rachele Diehl's office. Per Racheal, patient to be seen tomorrow at 8am and will discuss clearance for surgery. Original Note: SOCIAL WORK Received call from patient regarding frustration with not getting scheduled for spinal surgery. Patient states Dr. Spicer office is reporting to not have everything needed for clearance for surgery. Patient requesting this workers assistance. Patient states followed up with pulmonary on 02/14/2020 and they gave the OK for surgery. Patient reports to be in a lot of pain. I just want the surgery. Patient reports Dr. Wharton's office gave her a name of another surgeon, however is unable to recall surgeons name. Call to Dr. Wharton's office per patient's request. Updated by nurse the name of the surgeon was Dr. Restrepo. Call to Dr. Spicer office. Per Reny, office is waiting on patient's family doctor to clear for surgery. Call to primary care office of Rachele Diehl NP to discuss the above. Left message. Awaiting call back. Call to patient to update on the above. Patient reports will also be calling primary care to obtain clearance for Dr. Spicer. Mega Dennis, SANITARIAN INSPECTOR, NEEDLE MAKER
== END 2020-01-20 10:31 | disposition home or self-care (01) ==
PROVIDERS: Emergency Provider Physician Assistant Medical; PCP Nurse Practitioner Family
DX: J44.1 Chronic obstructive pulmonary disease with (acute) exacerbation (principal); M54.5 Low back pain; G89.29 Other chronic pain; F17.200 Nicotine dependence, unspecified, uncomplicated
CPT/HCPCS: 96372; 99284

== ENCOUNTER 2020-03-11 05:39 | Day surgery (SDC) | payer MEDICARE, MEDICAID, SELFPAY ==
[2020-02-14 14:11] VITALS: BMI 18.6
--- NOTE | 2020-03-04 10:53 | EKG12_ITS ---
Test Reason : PREOP Blood Pressure : / mmHG Vent. Rate : 075 BPM Atrial Rate : 075 BPM P-R Int : 130 ms QRS Dur : 092 ms QT Int : 414 ms P-R-T Axes : 073 -80 077 degrees QTc Int : 462 ms Normal sinus rhythm Left axis deviation Abnormal ECG Confirmed by SHAYAN HOLMAN, RENATE ([id number]), communications editor JENNIFER RUVALCABA ([id number]) on 03/05/2020 10:42:33 AM Referred By: Dominog Spicer Confirmed By:RENATE DOWNEY MD
--- NOTE | 2020-03-04 11:15 | RAD_ITS ---
ACR Level 3 findings have been noted. An addendum which confirms receipt of the report will follow. HISTORY: pre op back surgery emphysema, COPD, smoker ADDITIONAL HISTORY: None provided. COMPARISON: 10/04/2018 EXAMINATION/TECHNIQUE: XR Chest 2 Views Number of images including paperwork: 2 FINDINGS: LUNGS AND PLEURA: No consolidation, mass or pleural effusion. Hyperinflation. Apical pleural parenchymal scarring and upper lobe emphysema appear similar. Ovoid density projecting between the left anterior third and fourth ribs measuring 7 x 13 mm. CARDIAC SILHOUETTE: Unremarkable. MEDIASTINUM AND FRANK: Unremarkable. UPPER ABDOMEN: Unremarkable. SKELETON AND SOFT TISSUES: No acute findings. OTHER DEVICES AND HARDWARE: None. RAD/Chest PA and Lateral IMPRESSION: No acute cardiopulmonary abnormality. Emphysema. Possible left upper lobe lung nodule. Short interval follow-up shallow oblique radiographs or CT chest recommended for further evaluation. at 0800 Reported and signed by: Racheal De Guzman MD Electronically Signed: Racheal De Guzman MD at 7:59 EST Tel , Service support ,
[2020-03-04 11:23] LABS: Absolute Neutrophil Count 5.4 X10^3/uL (2.0-7.7); Basophil# 0.08 X10^3/uL; Basophil% 0.9 % (0-1); Eosinophil# 0.27 X10^3/uL; Eosinophils% 2.9 % (0-5); Hematocrit 41.2 % (37-47); Hemoglobin 13.1 g/dL (12.0-15.0); Lymphocyte % 24.9 % (19-41); Mean Corp Hgb Conc 31.8 g/dL (32-36); Mean Corpuscular Hgb 29.9 pg (27.0-32.0); Mean Corpuscular Volume 94.1 fL (81-99); Mean Platelet Vol. 8.5 fl (6.2-12.0); Monocyte# 1.14 X10^3/uL; Monocyte% 12.3 % (0-10); NRBC Flagged by Analyzer 0 % (0-5); Neutrophil % 58.5 % (47-70); Platelet Count 515 K/mm3 (150-450); RBC Distribution Width CV 12.2 % (11.6-14.6); RBC Distribution Width SD 42.5 fl (35.1-43.9); Red Blood Count 4.38 M/mm3 (4.2-5.4); White Blood Count 9.2 K/mm3 (4.4-11.0)
[2020-03-04 11:33] LABS: Prothrombin Time (Protime)PT. 12.4 SECONDS (11.7-14.9)
[2020-03-04 11:34] LABS: Partial Thromboplast Time 32.4 Seconds (24.1-36.2)
[2020-03-04 11:49] LABS: Anion Gap 4 (5-15); BUN 18 mg/dL (7-18); BUN/Creat Ratio 23.6 RATIO (10-20); Calcium,Total 9.1 mg/dL (8.5-10.1); Chloride 102 mmol/L (98-107); Creatinine, Serum 0.76 mg/dL (0.55-1.02); EST Glomerular Filtration Rate 84 mL/min (>60); Est Glom Filt Rate - Afr Amer 101 mL/min (>60); Glucose 86 mg/dL (74-106); Potassium 4.3 mmol/L (3.5-5.1); Sodium Level 135 mmol/L (136-145)
[2020-03-04 11:56] LABS: AST(SGOT) 13 U/L (15-37); Alanine Aminotransfer ALT/SGPT 23 U/L (13-56); Albumin, Serum 3.8 g/dL (3.2-5.0); Alkaline Phosphatase 94 U/L (45-117); Bilirubin, Direct 0.12 mg/dL (0.00-0.30); Globulin 3.5 g/dL (2.2-4.2); Protein, Total 7.3 g/dL (6.4-8.2)
[2020-03-11] VITALS (8 sets, daily range): BP systolic 88–121; BP diastolic 54–86; PULSE 65–91; RESP 16–18; TEMP 36–36.5; O2SAT 93–100; BMI 18.5
[2020-03-11] MEDS: Lactated Ringers 1,000 ML 100 ML IV ×2 (06:39→08:31)
--- NOTE | 2020-03-11 07:30 | RAD_ITS ---
STUDY: X-RAY - LUMBAR SPINE REASON FOR EXAM: Female, 54 years old. L5-S1 LAMINOTOMY DISCECTOMY TECHNIQUE: 1 view(s) of the lumbar spine were obtained. COMPARISON: None FINDINGS: Fluoroscopy of the lumbar spine was utilized and operating room and 2 images suspended for interpretation.. RAD/Spine 1 View Any Level IMPRESSION: Fluoroscopy during a procedure. Electronically Signed: Constantino Mike MD at 9:15 EST Tel , Service support ,
[2020-03-11] MEDS: THROMBIN (RECOMBINANT) 20,000 UNIT VIAL 20000 UNIT TOPICAL (08:05)
[2020-03-11] MEDS: Bupivacaine 0.25% 30 ML Vial (09:21)
--- NOTE | 2020-03-11 10:07 | DCINST_ITS ---
Discharge Diet: No Restrictions Discharge Activity: Return to Normal Activity, May not drive while taking narcotic pain medications. May resume sexual activity in: No Restrictions Weight Bearing Status: Weight bearing as tolerated Call your doctor if your incision/area has: Continuous Slow Oozing, Sudden Increased Bleeding, Increased Pain/ Swelling, Increased Redness, Foul Smelling Discharge, Swelling at the incision site Call your doctor if you observe: Fever of 101 or Higher, Coldness, Increased Pain, Numbness or Tingling, Change in Color, Inability to urinate, Inability to have a bowel movement, Using more than one pad per hour, Shortness of breath, Dizziness, Fainting spells, Swelling in the ankles, Chest pain, Prolonged hiccoughing, Increased palpitations (irregular heartbeat), Calf discomfort Change Dressing in (Days):: 1 - daily Cleanse incision/area with: Keep Dressing Clean & Dry Allergies/Adverse Reactions: Allergies cortisone Allergy (Verified 02/26/20 13:07) Swelling latex Allergy (Verified 02/26/20 13:07) Itching Penicillins Allergy (Verified 02/26/20 13:07) Hives Medications to take at Discharge Albuterol Inhaler [Ventolin Hfa] 1 - 2 puff INHALATION Q4H PRN PRN #1 inhaler 05/02/15 Atorvastatin Calcium [Lipitor] 20 mg PO QHS 04/03/18 Fluoxetine HCl [Prozac] 80 mg PO DAILY 04/03/18 Gabapentin [Neurontin] 1,200 mg PO DAILY 04/03/18 Propranolol HCl [Inderal (Beta Elizabeth)] 10 mg PO DAILY 04/03/18 Hydrocodone/Acetaminophen [Hydrocodon-Acetaminophen 5-325] 1 ea PO BID 01/15/20 Tizanidine HCl 2 mg PO TID 01/15/20 Omeprazole 40 mg PO PRN PRN 02/26/20 Tiotropium Br/Olodaterol HCl [Stiolto Respimat Inhal [place]] 2 puff IH QHS 02/26/20 Hydrocodone/Acetaminophen [Hydrocodon-Acetaminophen 5-325] 1 - 2 each PO Q12H PRN PRN #14 tablet 03/11/20 The following prescriptions were given: Hydrocodone/Acetaminophen [Hydrocodon-Acetaminophen 5-325] 1 - 2 each PO Q12H P RN PRN #14 tablet PRN Reason: Pain Score 6-10 Transmission Status: Sent to [facility] Primary Care Physician: Jaylin Diehl CONTRACTS REPRESENTATIVE, CONTRACTS REPRESENTATIVE-C [Primary Care Provider] - Test Results: Test results from this visit will be discussed in further detail at your follow- up appointment, if applicable. Please Follow Up With: Domingo Spicer DO - 3 weeks
[2020-03-11] MEDS: tiZANidine HCl 2 MG Tablet PO (11:23)
--- NOTE | 2020-03-11 12:23 | PCM.PN.ORT ---
Subjective: The patient was seen postop in the PACU. She is doing well. Her pain is well controlled. She has no complaints. Objective: Alert and oriented x3, no acute distress Abdomen soft and nontender Dressing clean dry and intact Extremities neurovascularly intact without focal deficit, no tenderness or edema - Physical Exam Vitals/I&O's: Vital Signs Temp Pulse Resp BP Pulse Ox 97.7 F L 74 18 103/63 93 03/11/20 12:11 03/11/20 12:11 03/11/20 12:11 03/11/20 12:11 03/11/20 12:11 Oxygen Delivery Method Room Air Weight: 111 lb 5.335 oz Body Mass Index (BMI) 18.5 Intake and Output for Last 24 Hours 03/09/20 03/10/20 03/11/20 23:59 23:59 23:59 Intake Total 1654 / 1654 Output Total 200 / 200 Balance 1454 / 1454 General: Alert, Oriented x3 HEENT: Atraumatic Oral: Moist Mucosa Neck: Supple Lungs: Clear to auscultation, Normal air movement Cardiovascular: Regular rate Abdomen: Bowel Sounds Present, Soft, Non Tender Extremities: No edema, No Calf Tenderness, Peripheral Pulses Normal Skin: No rashes, No breakdown Musculoskeletal: No Tenderness to Palpation of Joints or Extremities Neurological: Cranial nerves II-XII grossly intact, Deep Tendon Reflexes 2+/4 and Symmetrical, Neuro grossly intact, Motor Exam 5/5 strength throughout, Sensory exam intact to light touch and pain Psych/Mental Status: Normal Affect, Appropriate Microbiology Past 72 Hours 03/10/20 09:00 Interface Orders SARS-CoV-2 Antigen (Rapid) - Final Current Medications Lactated Ringer's () 1,000 mls @ 100 mls/hr IV .Q10H PATIENCE Last Infusion: 03/11/20 11:56 Dose: Infused Documented by: Medical Necessity - Tobacco Use Smoking Status: Current every day smoker Tobacco Use: Cigarettes Assessment/Plan All Active Problems (Last Reviewed 02/14/20 @ 14:12 by Filomena Sauer) Thrombocytosis (Resolved) Leukocytosis (Resolved) Kidney stone (Resolved) Herniated lumbar intervertebral disc (Acute) Back pain (Acute) Okay to discharge home when criteria met Change dressing daily with iodine to incision, keep dressing clean dry and intact See discharge instructions Follow-up in clinic in 3 weeks for suture removal
--- NOTE | 2020-03-12 17:13 | PCM.OPRPT ---
Problem List (1) Herniated lumbar intervertebral disc Status: Acute Report of Operation Date of Procedure: 03/11/20 Pre-Operative Diagnosis: L5-S1 herniated disc Post-Operative Diagnosis: L5/S1 herniated disc Surgery/Procedure Performed:: Right L5/S1 laminotomy discectomy Description of Surgical Findings:: Statement of medical necessity: The patient is a 54-year-old female with intractable back and right leg pain. Image studies confirm the above diagnosis. She has failed conservative treatment to include medicine, therapy, and injections. The patient opted for operative intervention, understanding the risks to include, but not limited to, infection, bleeding, damage to nerves, arteries, and veins, possibility of spinal fluid leak, continued pain, need for further surgery, deep vein thrombosis, pulmonary embolism, heart attack, risk of stroke, or . Description of procedure: The patient was identified in the preoperative holding area. The patient's identity and surgery site were confirmed by the patient, staff, anesthesia, and the surgeon. She received preoperative IV antibiotics and was then transferred to the operative suite. Once in the operative suite, after general endotracheal anesthesia was established, the patient was transferred to the [facility] operating table in the prone position. All bony prominences were padded accordingly. The lumbar spine was prepped and draped in a standard fashion. A midline incision was made and taken down to the lumbodorsal fascia. This was divided and subperiosteal dissection was taken down to the level of the right facet joint. Deep retractors were placed. At this point a curet was utilized under the lamina and foramen and a foraminotomy and laminotomy were performed using Kerrison rongeurs. The nerve was identified and retracted medially. A large subligamentous disc herniation was identified. A knife was used to perform an annulotomy and a large subligamentous disc was removed using pituitaries. Any loose fragments were identified and removed and the wound was irrigated. Tisseel was placed over the dura as a hemostatic agent. The fascia was closed with #1 Vicryl, subcutaneous with 2-0 Vicryl, skin was closed with 2-0 nylon. A sterile dressing was applied with Adaptic, 4 x 4's, ABD pads, and tape. Sponge, instrument, and needle counts were correct at the end of the case. The patient was extubated and taken to the PACU without incident. Drains: None Estimated Blood Loss (mL): 25 cc Fluids Replaced: 1600 cc Grafts/Implants Used: None - Complications None - Admit VTE Documentation VTE Present on Admission: No VTE Mechan Device Prophylaxis: SCD's, Knee High CHELE Hose VTE Pharm Prophylaxis ordered?: No
== END 2020-03-11 12:33 | disposition home or self-care (01) ==
LOC: SDC 05:39 → AC 05:40
PROVIDERS: Anesthesiology; PCP Nurse Practitioner Family; Referring Provider Orthopaedic Surgery; Visit Provider Orthopaedic Surgery
PROC: (CPT 63030; principal; 2020-03-11 07:00)
DX: M51.26 Other intervertebral disc displacement, lumbar region (principal); M47.26 Other spondylosis with radiculopathy, lumbar region; M51.36 Other intervertebral disc degeneration, lumbar region; Z20.828 Contact with and (suspected) exposure to other viral communicable diseases; I10 Essential (primary) hypertension; F32.9 Major depressive disorder, single episode, unspecified; M79.7 Fibromyalgia; L40.9 Psoriasis, unspecified; J44.9 Chronic obstructive pulmonary disease, unspecified; G25.81 Restless legs syndrome; K58.9 Irritable bowel syndrome, unspecified; K21.9 Gastro-esophageal reflux disease without esophagitis; F41.9 Anxiety disorder, unspecified; M06.9 Rheumatoid arthritis, unspecified; E78.00 Pure hypercholesterolemia, unspecified; Z86.2 Personal history of diseases of the blood and blood-forming organs and certain disorders involving the immune mechanism; Z87.440 Personal history of urinary (tract) infections; Z79.899 Other long term (current) drug therapy; F17.210 Nicotine dependence, cigarettes, uncomplicated
CPT/HCPCS: 00630; 63030; 36415; 71046; 72020; 76000; 80048; 80076; 85025; 85610; 85730; 87426; 93005; C9803; J7120; J2405

== ENCOUNTER → 2020-04-07 12:55 | Outpatient (CLI) | payer MEDICARE, MEDICAID, SELFPAY ==
[2020-03-11 06:18] VITALS: BMI 18.5
--- NOTE | 2020-04-07 12:58 | CT_ITS ---
STUDY: CT CHEST WITH CONTRAST REASON FOR EXAM: Female, 54 years old. LEFT LUNG NODULE RADIATION DOSAGE (If Supplied By Facility): CTDIvol = ( 7.25 ) mGy, DLP = ( 161.45 ) mGycm TECHNIQUE: Transaxial imaging was performed following intravenous administration of IV 100mL Isovue-300. Multiplanar coronal and sagittal images were reformatted. Individualized dose optimization techniques were used for this CT. COMPARISON: Comparison is made with prior examination dated 06/29/2019 and 06/26/2018. FINDINGS: Stable small benign appearing bilateral axillary lymph nodes. Emphysematous changes with centrilobular emphysema worse in the upper lobes. Stable scarring in both upper lobes posteriorly. Bullous formation is also seen in the anterior aspect of the right and left upper lobes. There is no demonstrated pleural abnormality. Normal heart and pericardium. There are multiple small lymph nodes within the mediastinum, which are normal in size and morphology most compatible with reactive lymph hyperplasia. Normal hilar regions. Normal enhanced pulmonary arteries. Normal aorta arch and descending thoracic aorta. There are degenerative changes of the thoracic spine. Small hiatal hernia. CT/Chest WITH Contrast IMPRESSION: Stable examination with findings of centrilobular emphysema with bullous formation. Scarring in both lung apices. Electronically Signed: Geremias Hernandez MD at 14:07 EST , Service support ,
== END ==
PROVIDERS: PCP Nurse Practitioner Family; Referring Provider Nurse Practitioner Family; Visit Provider Nurse Practitioner Family
DX: R91.1 Solitary pulmonary nodule (principal)
CPT/HCPCS: 71260; Q9967

== ENCOUNTER → 2020-08-13 13:26 | Outpatient (CLI) | payer MEDICARE, MEDICAID, SELFPAY ==
[2020-03-11 06:18] VITALS: BMI 18.5
--- NOTE | 2020-08-13 13:47 | RAD_ITS ---
STUDY: X-RAY - CERVICAL SPINE REASON FOR EXAM: Female, 54 years old. NECK PAIN TECHNIQUE: 3 view(s) of the cervical spine were obtained. COMPARISON: None FINDINGS: Normal anterior atlantoaxial articulation. Normal odontoid process. Normal cervical lordosis. Normal vertebral bodies and endplates. Normal disc space heights. Normal visualized intervertebral neuroforamina. There are expected mild age-appropriate changes. The soft tissue structures are unremarkable. RAD/Cerv Spine 2 or 3 Views IMPRESSION: Age normal cervical spine. Electronically Signed: Luz Elena Hermosillo MD at 20:09 EDT Tel , Service support ,
[2020-08-13 15:24] LABS: Amphetamine Urine VISTA NEGATIVE (<1000 ng/mL); Barbiturate Urine VISTA NEGATIVE (< 200 ng/mL); Benzodiazepine Urine VISTA NEGATIVE (< 200 ng/mL); Cocaine Urine VISTA NEGATIVE (< 300 ng/mL); Ecstacy Urine VISTA NEGATIVE (< 500 ng/mL); Methadone Urine VISTA NEGATIVE (< 300 ng/mL); PCP Urine VISTA NEGATIVE (< 25 ng/mL); THC Urine VISTA NEGATIVE (< 50 ng/mL); Vista UDS pH Range 6
== END ==
PROVIDERS: PCP Nurse Practitioner Family; Referring Provider Anesthesiology Pain Medicine; Visit Provider Anesthesiology Pain Medicine
DX: M54.2 Cervicalgia (principal); F11.20 Opioid dependence, uncomplicated
CPT/HCPCS: 72040; 80307

== ENCOUNTER → 2020-09-10 15:16 | Outpatient (CLI) | payer MEDICARE, MEDICAID, SELFPAY ==
[2020-03-11 06:18] VITALS: BMI 18.5
[2020-09-10 17:42] LABS: Amphetamine Urine VISTA NEGATIVE (<1000 ng/mL); Barbiturate Urine VISTA NEGATIVE (< 200 ng/mL); Benzodiazepine Urine VISTA NEGATIVE (< 200 ng/mL); Cocaine Urine VISTA NEGATIVE (< 300 ng/mL); Ecstacy Urine VISTA NEGATIVE (< 500 ng/mL); Methadone Urine VISTA NEGATIVE (< 300 ng/mL); PCP Urine VISTA NEGATIVE (< 25 ng/mL); THC Urine VISTA NEGATIVE (< 50 ng/mL); Vista UDS pH Range 4
== END ==
PROVIDERS: PCP Nurse Practitioner Family; Visit Provider Nurse Practitioner Family
DX: Z79.899 Other long term (current) drug therapy (principal)
CPT/HCPCS: 80307

== ENCOUNTER 2020-09-17 05:26 | Emergency (ER) | payer MEDICARE, MEDICAID, SELFPAY ==
[2020-03-11 06:18] VITALS: BMI 18.5
[2020-09-17 05:27] VITALS: BP 150/82; PULSE 81; RESP 18; TEMP 36.3; O2SAT 99; BMI 22.8
--- NOTE | 2020-09-17 06:00 | EDS_ITS ---
HPI History of Present Illness Chief Complaint: Back Narrative Narrative: Patient presenting for evaluation secondary to back pain. Patient has an underlying history of chronic back pain. Patient has a past history of a lumbar discectomy, and used to be under the care of of pain management, Dr. Wharton. Pain management wanted to take patient off of her Everetts, and was going to put her on some sort of a pain patch. This was last week, and the pain patch was not able to be prior authorized under her insurance. Patient reports that she has been out of her chronic pain medication since then has been dealing with increased pain. This morning the patient states that her typical pain was bad enough that it caused her legs to give out on her. Patient does state that that happens intermittently. She has radiation down the legs, and at baseline has some numbness of the right leg from the knee to the foot which is also unchanged. She denies any bowel or bladder incontinence. She denies any fevers chills night sweats or unintended weight loss. Review of systems otherwise nega tive. [facility] Medical History (Updated 09/17/20 @ 06:[address] Joce Will MD) Abnormal LFTs Alcoholism Anxiety COPD (chronic obstructive pulmonary disease) Elevated cholesterol History of pneumonia Thrombocytosis Home Medications albuterol sulfate 1 - 2 puff INHALATION Q4H PRN PRN #1 inhaler 05/02/15 [Rx Last Taken Unknown] atorvastatin 20 mg PO QHS 04/03/18 [History Last Taken Unknown] fluoxetine 80 mg PO DAILY 04/03/18 [History Last Taken Unknown] gabapentin 1,200 mg PO DAILY 04/03/18 [History Last Taken Unknown] omeprazole 40 mg PO PRN PRN 02/26/20 [History Last Taken Unknown] meloxicam [Mobic] 15 mg PO DAILY #14 tab 09/17/20 [Rx Last Taken Unknown] Allergy/AdvReac Type Severity Reaction Status Date / Time cortisone Allergy Swelling Verified 09/17/20 05:27 latex Allergy Itching Verified 09/17/20 05:27 Penicillins Allergy Hives Verified 09/17/20 05:27 Family History Mother Hypertension Hypercholesteremia Diabetes Social History Smoking Status: Current every day smoker tobacco type: cigarettes Tobacco: How many years used: 38 ROS ROS ED Constitutional Constitutional ED: Reports other Details: Denies recent surgeries, or injections ; Denies chills, fever(s), sweats or weight loss Cardiovascular Cardiovascular: Denies chest pain Respiratory/Chest Respiratory/Chest: Denies dyspnea Gastrointestinal Gastrointestinal: Reports other Details: Denies Bowel Incontinence ; Denies abdominal pain Genitourinary Genitourinary ED: Reports other Details: Denies Bladder Incontinence Musculoskeletal Musculoskeletal: Reports back pain Integumentary Reports other Details: No Petechiae ; Denies rash Neurologic Neurologic: Reports paresthesias and other Details: Denies Numbness, or Weakness Psychiatric Psychiatric: Reports other Details: Denies history of IV Drug abuse Hematologic/Lymphatic Hematologic/Lymphatic: Denies lymphadenopathy EXAM Physical Exam Const Vital Signs: 09/17/20 05:27 Temperature 97.3 F L Temperature Source Temporal Pulse Rate 81 Respiratory Rate 18 Blood Pressure 150/82 H Blood Pressure Mean 104 Pulse Ox 99 Oxygen Delivery Method Room Air Positive well nourished and well developed Constitutional Narrative: Thin patient who appears older than stated age General Appearance ED: well developed and NAD HEENT Reports normocephalic and head/scalp atraumatic Eyes EOMs intact bilaterally Neck supple Resp normal respiratory effort and clear to auscultation bilaterally Cardio regular rate, regular rhythm and no murmurs Bruits: other Other Details: 2+ Radial Pulses 2+ DP Pulses 2+ PT Pulses Peripheral Pulses: radial pulses present, posterior tibial pulses present and dorsalis pedis pulses present GI normal to inspection, nondistended, normoactive bowel sounds, soft to palpation and non-tender Palpation: Negative for pulsatile mass Back/Spine normal to inspection Thoracic Spine / Upper Back: Negative for thoracic spinal tenderness Lumbar Spine / Lower Back: straight leg raise negative bilaterally; Negative for lumbar spinal tenderness Extremity normal to inspection Extremity Narrative: Patient actually has brisk movement of the lower extremities Neuro oriented x3 and no sensory deficits noted Neuro Narrative: Motor: Hip flexion Knee flexion Knee extension Dorsiflexion Plantar Flexion Extensor Hallicus longus Sensorium / Orientation: alert Sensory Exam: other Motor Exam: strength 5/5 throughout Deep Tendon Reflexes: Rt Patellar (L4): 2+, Lt Patellar (L4): 2+, Rt Ankle (S1): 2+ and Lt Ankle (S1): 2+ Deep Tendon Reflexes Back: Rt Patellar (L4): 2+, Lt Patellar (L4): 2+, Rt Ankle (S1): 2+ and Lt Ankle (S1): 2+ Plantar Reflex: Other: bilateral (No pathologic clonus) Psych mental status grossly normal Skin no rashes or lesions noted Skin Narrative: Piloerection is noted on the skin Trauma: other No petechiae MDM MDM MDM Narrative Medical decision making narrative: Patient presented secondary to back pain. She has piloerection that makes me suspicious about the possibility of her potentially having an element of opiate withdrawal, she has no red flag signs or symptoms and is briskly moving her legs at home think this is a presentation of cauda equina or spinal cord impingement. Patient was given a dose of Toradol as well as Everetts in the emergency department. Patient at this point does not require outpatient narcotics. Patient did report that she had been on Mobic in the past, I will provide her with a prescription for this. Patient was discharged with outpatient follow-up with primary care. Discharge Plan Triage Chief Complaint: Back Other Complaint: Lower Extremity Injury ED Provider: Joce Will Dx/Rx/DC Orders Clinical Impression: Chronic back pain Instructions: ED Back Pain (Acute or Chronic) Prescriptions: New meloxicam [Mobic] 15 mg tablet 15 mg PO DAILY Qty: 14 RF: 0 No Action albuterol sulfate 1 INHALER inhaler 1 - 2 puff INHALATION Q4H PRN PRN (Reason: Wheezing) Qty: 1 RF: 0 atorvastatin 20 MG tablet 20 mg PO QHS RF: 0 gabapentin 300 MG capsule 1,200 mg PO DAILY RF: 0 fluoxetine 20 MG capsule 80 mg PO DAILY RF: 0 omeprazole 40 MG capsule,delayed release(DR/EC) 40 mg PO PRN PRN (Reason: Indigestion) RF: 0 Primary Care Provider: Jaylin Diehl NP Referrals: Jaylin Diehl NP, [employer] ADMINISTRATOR-[employer] [Primary Care Provider] - 3-5 Days Disposition Disposition: Home, Self Care
[2020-09-17] MEDS: Ketorolac 30 MG/ML Syringe IM (06:03)
[2020-09-17] MEDS: HYDROcodone Bitartrate/Apap 5/325 Tablet PO (06:03)
== END 2020-09-17 06:22 | disposition home or self-care (01) ==
PROVIDERS: Emergency Provider Emergency Medicine; PCP Nurse Practitioner Family
DX: M54.9 Dorsalgia, unspecified (principal); G89.29 Other chronic pain; E78.00 Pure hypercholesterolemia, unspecified; F41.9 Anxiety disorder, unspecified; J44.9 Chronic obstructive pulmonary disease, unspecified; Z86.2 Personal history of diseases of the blood and blood-forming organs and certain disorders involving the immune mechanism; Z87.01 Personal history of pneumonia (recurrent); Z79.899 Other long term (current) drug therapy; F17.210 Nicotine dependence, cigarettes, uncomplicated
CPT/HCPCS: 96372; 99284

== ENCOUNTER 2020-09-27 12:02 | Emergency (ER) | payer MEDICARE, MEDICAID, SELFPAY ==
[2020-09-27 12:03] VITALS: BP 110/66; PULSE 109; RESP 16; TEMP 36.7; O2SAT 97; BMI 19.1
--- NOTE | 2020-09-27 12:19 | EDS_ITS ---
HPI History of Present Illness Chief Complaint: Back Narrative Narrative: Patient presenting for evaluation secondary to back pain. Patient does have an underlying history of chronic back pain she was here for an exacerbation of that around 10 days ago. Patient was placed on a course of Mobic and was to have follow-up with primary care. Patient states that she was doing some housework today and exacerbated her back pain. It is in her lower back, diffusely. Patient states that chronically she has some issues with radiation down her right leg but she really is not having issues with that currently. She denies any fevers chills night sweats or unintended weight loss. No recent injections or surgeries. No bowel or bladder incontinence or weakness associated with this. Patient is currently pending an appointment with a new roof painter which is about 3 weeks out, she is on Mobic at home for pain control. [facility] Medical History (Updated 09/27/20 @ 13:[address] Joce Wlil MD) Abnormal LFTs Alcoholism Anxiety COPD (chronic obstructive pulmonary disease) Elevated cholesterol History of pneumonia Thrombocytosis Home Medications albuterol sulfate 1 - 2 puff INHALATION Q4H PRN PRN #1 inhaler 05/02/15 [Rx Last Taken Unknown] atorvastatin 20 mg PO QHS 04/03/18 [History Last Taken Unknown] fluoxetine 80 mg PO DAILY 04/03/18 [History Last Taken Unknown] gabapentin 1,200 mg PO DAILY 04/03/18 [History Last Taken Unknown] omeprazole 40 mg PO PRN PRN 02/26/20 [History Last Taken Unknown] meloxicam [Mobic] 15 mg PO DAILY #14 tab 09/17/20 [Rx Last Taken Unknown] Allergy/AdvReac Type Severity Reaction Status Date / Time cortisone Allergy Swelling Verified 09/27/20 12:05 latex Allergy Itching Verified 09/27/20 12:05 Penicillins Allergy Hives Verified 09/27/20 12:05 Family History Mother Hypertension Hypercholesteremia Diabetes Social History Smoking Status: Current every day smoker tobacco type: cigarettes Tobacco: How many years used: 38 ROS ROS ED Constitutional Constitutional ED: Reports other Details: Denies recent surgeries, or injections ; Denies chills, fever(s), sweats or weight loss Cardiovascular Cardiovascular: Denies chest pain Respiratory/Chest Respiratory/Chest: Denies dyspnea Gastrointestinal Gastrointestinal: Reports other Details: Denies Bowel Incontinence ; Denies abdominal pain Genitourinary Genitourinary ED: Reports other Details: Denies Bladder Incontinence Musculoskeletal Musculoskeletal: Reports back pain Integumentary Reports other Details: No Petechiae ; Denies rash Neurologic Neurologic: Reports other Details: Denies Numbness, or Weakness Psychiatric Psychiatric: Reports other Details: Denies history of IV Drug abuse Hematologic/Lymphatic Hematologic/Lymphatic: Denies lymphadenopathy EXAM Physical Exam Const Vital Signs: 09/27/20 12:03 Temperature 98.0 F Temperature Source Temporal Pulse Rate 109 H Respiratory Rate 16 Blood Pressure 110/66 Blood Pressure Mean 80 Pulse Ox 97 Oxygen Delivery Method Room Air Positive well nourished and well developed General Appearance ED: well developed and NAD HEENT Reports normocephalic and head/scalp atraumatic Eyes EOMs intact bilaterally Neck supple Resp normal respiratory effort and clear to auscultation bilaterally Cardio regular rate, regular rhythm and no murmurs Bruits: other Other Details: 2+ Radial Pulses 2+ DP Pulses 2+ PT Pulses Peripheral Pulses: radial pulses present, posterior tibial pulses present and dorsalis pedis pulses present GI normal to inspection, nondistended, normoactive bowel sounds, soft to palpation and non-tender Palpation: Negative for pulsatile mass Back/Spine normal to inspection Back/Spine Narrative: Diffuse tenderness over the lumbar spine without localization over the midline. No step-offs noted. Thoracic Spine / Upper Back: paraspinal muscle tenderness; Negative for thoracic spinal tenderness Lumbar Spine / Lower Back: straight leg raise negative bilaterally; Negative for lumbar spinal tenderness Extremity normal to inspection Neuro oriented x3 and no sensory deficits noted Neuro Narrative: Motor: Hip flexion Knee flexion Knee extension Dorsiflexion Plantar Flexion Extensor Hallicus longus Sensorium / Orientation: alert Sensory Exam: other Motor Exam: strength 5/5 throughout Deep Tendon Reflexes: Rt Patellar (L4): 2+, Lt Patellar (L4): 2+, Rt Ankle (S1): 2+ and Lt Ankle (S1): 2+ Deep Tendon Reflexes Back: Rt Patellar (L4): 2+, Lt Patellar (L4): 2+, Rt Ankle (S1): 2+ and Lt Ankle (S1): 2+ Plantar Reflex: Other: bilateral (No pathologic clonus) Psych mental status grossly normal Skin no rashes or lesions noted Trauma: other No petechiae MDM MDM MDM Narrative Medical decision making narrative: Patient presented secondary to an ex acerbation of back pain. There are no red flag signs or symptoms, no indication for neuroimaging no signs of cauda equina patient has a normal motor or sensory exam. Patient was actually seen by myself last visit, we did not get imaging at that time. x-ray will be obtained patient was given Toradol for treatment of pain. Patient is on a ED care plan that states she is not to receive any opiates unless she has verifiable pain. Lumbar radiographs per radiology my personal review show some degenerative changes nothing acute. Patient had improvements with Toradol. Patient was discharged with outpatient follow-up with pain management. Radiography Diagnostic Testing: Radiology Impression Lumbar Spine X-Ray 09/27/20 12:29 IMPRESSION: Degenerative disc disease at L5-S1. No acute bony abnormality. at 1315 Reported and signed by: Rolando Farmer MD Electronically Signed: Rolando Farmer MD at 13:14 EDT Tel , Service support , Discharge Plan Triage Chief Complaint: Back ED Provider: Joce Will Dx/Rx/DC Orders Clinical Impression: Chronic back pain Instructions: ED Back Pain (Acute or Chronic) Prescriptions: No Action albuterol sulfate 1 INHALER inhaler 1 - 2 puff INHALATION Q4H PRN PRN (Reason: Wheezing) Qty: 1 RF: 0 atorvastatin 20 MG tablet 20 mg PO QHS RF: 0 gabapentin 300 MG capsule 1,200 mg PO DAILY RF: 0 fluoxetine 20 MG capsule 80 mg PO DAILY RF: 0 omeprazole 40 MG capsule,delayed release(DR/EC) 40 mg PO PRN PRN (Reason: Indigestion) RF: 0 meloxicam [Mobic] 15 mg tablet 15 mg PO DAILY Qty: 14 RF: 0 Primary Care Provider: Jaylin Diehl NP Referrals: Jaylin Diehl NP, [employer] OPERATOR[employer] [Primary Care Provider] - Disposition Disposition: Home, Self Care
--- NOTE | 2020-09-27 12:29 | RAD_ITS ---
HISTORY: Back pain EXAMINATION/TECHNIQUE: XR Spine Lumbar 2 or 3 Views: 3 views COMPARISON: Lumbar MRI 12/13/19 FINDINGS: VERTEBRAE: Preserved vertebral body height. No acute fracture. No spondylolisthesis. Preservation of the normal lumbar lordosis. DISCS: Mild degenerative disc space narrowing at L5-S1. INCLUDED ABDOMEN: Included bowel gas pattern is non-obstructive. RAD/Lumbar Spine 2 or 3 Views IMPRESSION: Degenerative disc disease at L5-S1. No acute bony abnormality. at 1315 Reported and signed by: Rolando Farmer MD Electronically Signed: Rolando Farmer MD at 13:14 EDT Tel , Service support ,
[2020-09-27] MEDS: Ketorolac 30 MG/ML Syringe IM (13:01)
== END 2020-09-27 13:59 | disposition home or self-care (01) ==
PROVIDERS: Emergency Provider Emergency Medicine; PCP Nurse Practitioner Family
DX: M54.5 Low back pain (principal); G89.29 Other chronic pain; F41.9 Anxiety disorder, unspecified; J44.9 Chronic obstructive pulmonary disease, unspecified; E78.00 Pure hypercholesterolemia, unspecified; Z87.01 Personal history of pneumonia (recurrent); Z79.899 Other long term (current) drug therapy; F17.210 Nicotine dependence, cigarettes, uncomplicated
CPT/HCPCS: 72100; 96372; 99282

== ENCOUNTER 2020-09-28 01:17 | Emergency (ER) | payer MEDICARE, MEDICAID, SELFPAY ==
[2020-09-27 12:03] VITALS: BMI 19.1
[2020-09-28 01:18] VITALS: BP 142/90; PULSE 99; RESP 16; TEMP 36.3; O2SAT 99; BMI 18.5
--- NOTE | 2020-09-28 01:51 | EDS_ITS ---
HPI History of Present Illness Chief Complaint: Back Informant: patient Onset/Context/Timing Onset: Month(s) Context: Gradual Onset Timing: Continuous Quality: Sharp and Aching Current Severity: Mild Maximum Severity: Mild Worsened by: improves with Movement Relieved by: Nothing Associated Symptoms Associated Symptoms: Negative for Numbness, Tingling, Radiation to Right Leg, Radiation to Left Leg, Fever, Abdominal Pain, Dysuria, Unable to Ambulate, Unable to Transfer, Urinary Retention, Urinary Incontinence, Constipation and Fecal Incontinence Narrative Narrative: 54-year-old female chronic back pain. Patient had a prior laminectomy in February. She has a known history of rheumatoid arthritis chronic back pain and PTSD. Patient was seen pain management that relationship ended poorly and she is no longer seeing them. She has had prior back injections but none recently. She denies any fever. No bowel or bladder incontinence. No weakness to her lower extremities. Patient was seen earlier today given a IM injection of Toradol said it did not help her. She does have a care plan for pain medication. Prior similar symptoms: Yes Recent Illness/Hospitalization: No PFSH PFSH Medical History Abnormal LFTs Alcoholism Anxiety COPD (chronic obstructive pulmonary disease) Elevated cholesterol History of pneumonia Thrombocytosis Home Medications albuterol sulfate 1 - 2 puff INHALATION Q4H PRN PRN #1 inhaler 05/02/15 [Rx Last Taken Unknown] atorvastatin 20 mg PO QHS 04/03/18 [History Last Taken Unknown] fluoxetine 80 mg PO DAILY 04/03/18 [History Last Taken Unknown] gabapentin 1,200 mg PO DAILY 04/03/18 [History Last Taken Unknown] omeprazole 40 mg PO PRN PRN 02/26/20 [History Last Taken Unknown] meloxicam [Mobic] 15 mg PO DAILY #14 tab 09/17/20 [Rx Last Taken Unknown] Allergy/AdvReac Type Severity Reaction Status Date / Time cortisone Allergy Swelling Verified 09/27/20 12:05 latex Allergy Itching Verified 09/27/20 12:05 Penicillins Allergy Hives Verified 09/27/20 12:05 Family History Mother Hypertension Hypercholesteremia Diabetes Social History Smoking Status: Current every day smoker tobacco type: cigarettes Tobacco: How many years used: 38 ROS ROS ED ROS Narrative Denies recent illness. Review of Systems ROS Unobtainable: Denies due to encephalopathy Constitutional Constitutional ED: Denies chills or fever(s) Eyes Eyes: Denies change in vision ENT ENT ED: Denies ear pain or sore throat Cardiovascular Cardiovascular: Denies chest pain Respiratory/Chest Respiratory/Chest: Denies dyspnea Gastrointestinal Gastrointestinal: Denies abdominal pain, diarrhea, nausea or vomiting Genitourinary Genitourinary ED: Denies dysuria or hematuria Musculoskeletal Musculoskeletal: Reports back pain; Denies myalgias Integumentary Denies rash Neurologic Neurologic: Denies headache(s) Psychiatric Psychiatric: Denies depression Endocrine Endocrinology: Denies polyuria Hematologic/Lymphatic Hematologic/Lymphatic: Denies easy bruising Allergic/Immunologic Allergic/Immunologic ED: Denies urticaria EXAM Physical Exam Narrative Exam Narrative: Middle-aged female no acute distress. Vital signs stable afebrile. H EENT exam unremarkable. Strong smell of tobacco. Neck nontender. No lymphadenopathy. Lungs clear to auscultation. Heart regular rhythm rate about 100 no murmur. Abdomen soft nontender normal bowel sounds no peritoneal signs. Patient moving all 4 extremities. Neurovascular intact. Nontender no edema. She has normal strength and range of motion of both upper and lower extremities. No cauda equina. No saddle anesthesia. Normal medial thigh sensation. Dorsi and plantar flexion intact. Negative straight leg raise. B ack exam she is tenderness over the lower lumbar spine. There is no discoloration or signs of trauma. Patient got up from the chair and sat in the bed without any difficulty. No problems transferring. Const Vital Signs: 09/28/20 01:18 Temperature 97.3 F L Temperature Source Temporal Pulse Rate 99 Respiratory Rate 16 Blood Pressure 142/90 H Blood Pressure Mean 107 Pulse Ox 99 Oxygen Delivery Method Room Air Positive well nourished and well developed General Appearance ED: well developed and NAD HEENT Reports moist mucous membranes Negative for trauma or tenderness Eyes PERRL and EOMs intact bilaterally Neck no lymphadenopathy, supple and no JVD General: Negative for tenderness Resp normal respiratory effort and clear to auscultation bilaterally Cardio regular rate, regular rhythm, S1 normal heart sound, S2 normal heart sound and no murmurs GI normal to inspection, nondistended, normoactive bowel sounds, soft to palpation, non-tender, non-distended and no masses Inspection: Negative for abdominal distention Palpation: Negative for tender, guarding or rebound tenderness present Back/Spine Negative for no thoracic nor lumbar tenderness Back/Spine Narrative: Tenderness over her lower lumbar spine. No signs of trauma. No redness or warmth. General Back: Negative for CVA tenderness Cervical Spine: Negative for cervical spine tenderness and Negative for paracervical muscle tenderness Thoracic Spine / Upper Back: Negative for paraspinal muscle tenderness Lumbar Spine / Lower Back: straight leg raise negative bilaterally; Negative for straight leg raise positive right or straight leg raise positive - left Extremity normal to inspection and no clubbing, cyanosis or edema General Extremety ED: Negative for edema or tenderness General Extremity: Negative for edema Neuro oriented x3 and no sensory deficits noted Sensorium / Orientation: alert; Negative for confused, lethargic or stuporous Motor Exam: strength 5/5 throughout Psych mental status grossly normal Skin no rashes or lesions noted and no wounds MDM MDM MDM Narrative Medical decision making narrative: Patient with acute on chronic back pain. Fell out with pain management. Has a emergency department care plan due to concerns for pain medication in the past. Patient was given a injection of Toradol earlier tonight. Initially I was going to give her 1 p.o. Burden and be discharged. With the care plan that will not be done. Discharge Plan Triage Chief Complaint: Back ED Provider: Eduardo Vee Dx/Rx/DC Orders Prescriptions: No Action albuterol sulfate 1 INHALER inhaler 1 - 2 puff INHALATION Q4H PRN PRN (Reason: Wheezing) Qty: 1 RF: 0 atorvastatin 20 MG tablet 20 mg PO QHS RF: 0 gabapentin 300 MG capsule 1,200 mg PO DAILY RF: 0 fluoxetine 20 MG capsule 80 mg PO DAILY RF: 0 omeprazole 40 MG capsule,delayed release(DR/EC) 40 mg PO PRN PRN (Reason: Indigestion) RF: 0 meloxicam [Mobic] 15 mg tablet 15 mg PO DAILY Qty: 14 RF: 0 Primary Care Provider: Jaylin Diehl NP
[2020-09-28 02:01] VITALS: BP 138/80; PULSE 87; RESP 16; O2SAT 98
== END 2020-09-28 02:02 | disposition home or self-care (01) ==
PROVIDERS: Emergency Provider Emergency Medicine; PCP Nurse Practitioner Family
DX: M54.9 Dorsalgia, unspecified (principal); G89.29 Other chronic pain; F43.10 Post-traumatic stress disorder, unspecified; J44.9 Chronic obstructive pulmonary disease, unspecified; E78.00 Pure hypercholesterolemia, unspecified; M06.9 Rheumatoid arthritis, unspecified; Z79.899 Other long term (current) drug therapy; F17.210 Nicotine dependence, cigarettes, uncomplicated
CPT/HCPCS: 99282

== ENCOUNTER 2021-01-23 06:04 | Emergency (ER) | payer MEDICARE, MEDICAID, SELFPAY ==
[2021-01-23 06:05] VITALS: BP 160/94; PULSE 77; RESP 18; TEMP 36.5; O2SAT 99; BMI 18.3
--- NOTE | 2021-01-23 06:16 | EDS_ITS ---
HPI History of Present Illness Chief Complaint: Back Informant: patient Narrative Narrative: Patient states she aggravated her back by lifting yesterday. She has a history of chronic back pain. She had what sounds like laminectomy and discectomy in February. She was seeing pain management but there was some issue that occurred and she is no longer seeing pain management. She is currently on gabapentin and meloxicam. She has been trying to take some Tylenol to help also. She has tried ice on the area. She still has soreness on her lower back. There is no radicular symptoms. She has had pain down her right leg in the past but she is not having that now. She has no bowel or bladder dysfunction. No fevers or chills. No acute fall or trauma. Yesterday she had done laundry which required going up and down a hill. She had also gone shopping and gotten some 5 pound bags of groceries that irritated her back. She was then lifting a basket of towels from the floor of her closet and she lifted and turned and got pain in the back. Again it is not radicular. She has had a longstanding problem with back pain. This is an exacerbation [facility] Medical History (Updated 01/29/21 @ 11:[address] Maverick Holcomb MD) Abnormal LFTs Alcoholism Anxiety COPD (chronic obstructive pulmonary disease) Elevated cholesterol History of pneumonia Thrombocytosis Home Medications albuterol sulfate 1 - 2 puff INHALATION Q4H PRN PRN #1 inhaler 05/02/15 [Rx Last Taken Unknown] atorvastatin 20 mg PO QHS 04/03/18 [History Last Taken Unknown] fluoxetine 80 mg PO DAILY 04/03/18 [History Last Taken Unknown] gabapentin 1,200 mg PO DAILY 04/03/18 [History Last Taken Unknown] omeprazole 40 mg PO PRN PRN 02/26/20 [History Last Taken Unknown] tizanidine 4 mg PO Q8H PRN #14 tab 01/29/21 [Rx Last Taken Unknown] Allergy/AdvReac Type Severity Reaction Status Date / Time cortisone Allergy Swelling Verified 01/29/21 11:33 latex Allergy Itching Verified 01/29/21 11:33 Penicillins Allergy Hives Verified 01/29/21 11:33 Family History Mother Hypertension Hypercholesteremia Diabetes Social History Smoking Status: Current every day smoker tobacco type: cigarettes Tobacco: How many years used: 38 ROS ROS ED Constitutional Constitutional ED: Denies chills, fever(s) or subjective ENT ENT ED: Denies rhinorrhea Cardiovascular Cardiovascular: Denies chest pain or palpitations Respiratory/Chest Respiratory/Chest: Denies dyspnea or sputum Gastrointestinal Gastrointestinal: Denies constipation, diarrhea, nausea or vomiting Genitourinary Genitourinary ED: Denies dysuria, hematuria or urinary frequency Musculoskeletal Musculoskeletal: Reports back pain; Denies neck pain Integumentary Denies rash Neurologic Neurologic: Denies headache(s), paresthesias or weakness Endocrine Endocrinology: Denies polydipsia or polyuria Hematologic/Lymphatic Hematologic/Lymphatic: Denies easy bleeding or easy bruising Allergic/Immunologic Allergic/Immunologic ED: Denies urticaria EXAM Physical Exam Const Vital Signs: 01/23/21 06:05 Temperature 97.7 F L Temperature Source Oral Pulse Rate 77 Respiratory Rate 18 Blood Pressure 160/94 H Blood Pressure Mean 116 Pulse Ox 99 Oxygen Delivery Method Room Air Positive well nourished and well developed General Appearance ED: well developed and NAD HEENT Reports moist mucous membranes Eyes General Eye ED: Negative for pale conjunctiva or scleral icterus Neck no JVD Resp normal respiratory effort and clear to auscultation bilaterally Effort and Inspection: Negative for pain with movement Auscultation: Negative for rales, rhonchi or wheezes Cardio regular rate and regular rhythm GI normal to inspection, nondistended, normoactive bowel sounds, soft to palpation, non-tender and non-distended Back/Spine normal to inspection Back/Spine Narrative: Patient's back shows a well-healed scar down low on her lumbar area with overlying tattoo. But there is no sign of infection or erythema. There is mild nonfocal tenderness in the area. She is able to walk in on her own. She laid on the bed. She is able to sit up in the dangle her legs over the edge of the bed without difficulty. She was able to put her legs out straight while sitting up in the bed also. Extremity normal to inspection General Extremety ED: Negative for edema or tenderness General Extremity: Negative for edema Neuro oriented x3 and no sensory deficits noted Neuro Narrative: Patient has brisk 2+ patellar reflexes bilaterally and 1+ Achilles. She has normal quadricep strength. Normal dorsi and plantarflexion of her feet. No sensory changes. Sensorium / Orientation: alert Psych mental status grossly normal Skin no rashes or lesions noted and no wounds Lesions: No lesion noted Trauma: Negative for abrasion MDM MDM MDM Narrative Medical decision making narrative: This patient has a long history of back pain and back problems. She has had surgery. She is on long-term medications. She has had an exacerbation due to increase activity. I do not see an indication for x-rays. There are no red flags of back pain. She is not having any radicular symptoms. She does have a care plan. She is on gabapentin and meloxicam. I will give her a shot of Toradol as I think that might increase her pain control here. We will add some muscle relaxants to try to help her. She is encouraged to use ice and rest. She will follow up with her private physician. If she develops weakness, numbness, fever, bowel or bladder dysfunction she should return. Discharge Plan Triage Chief Complaint: Back ED Provider: Roly Salgado Dx/Rx/DC Orders Clinical Impression: Acute lumbar myofascial strain, Chronic back pain Instructions: ED Back Sprain/Strain Prescriptions: No Action albuterol sulfate 1 INHALER inhaler 1 - 2 puff INHALATION Q4H PRN PRN (Reason: Wheezing) Qty: 1 RF: 0 atorvastatin 20 MG tablet 20 mg PO QHS RF: 0 gabapentin 300 MG capsule 1,200 mg PO DAILY RF: 0 fluoxetine 20 MG capsule 80 mg PO DAILY RF: 0 omeprazole 40 MG capsule,delayed release(DR/EC) 40 mg PO PRN PRN (Reason: Indigestion) RF: 0 tizanidine 4 mg tablet 4 mg PO Q8H PRN (Reason: muscle spasticity) Qty: 14 RF: 0 Primary Care Provider: Jaylin Diehl NP Referrals: Jaylin Diehl NP, EDUCATIONAL PROGRAM DIRECTOR-C [Primary Care Provider] - 3-5 Days if not improving Disposition Disposition: Home, Self Care Discharge Date/Time: 01/23/21 06:46
[2021-01-23] MEDS: Orphenadrine 60 MG/2 ML Ampul IM (06:28)
[2021-01-23] MEDS: Ketorolac 30 MG/ML Syringe IM (06:29)
[2021-01-23 06:45] VITALS: BP 158/91; PULSE 79; RESP 18; O2SAT 95
== END 2021-01-23 06:46 | disposition home or self-care (01) ==
LOC: ED 06:39
PROVIDERS: Emergency Provider Emergency Medicine; PCP Nurse Practitioner Family
DX: S39.012A Strain of muscle, fascia and tendon of lower back, initial encounter (principal); X50.9XXA Other and unspecified overexertion or strenuous movements or postures, initial encounter; Y93.9 Activity, unspecified; Y92.9 Unspecified place or not applicable; G89.29 Other chronic pain; F41.9 Anxiety disorder, unspecified; J44.9 Chronic obstructive pulmonary disease, unspecified; Z86.2 Personal history of diseases of the blood and blood-forming organs and certain disorders involving the immune mechanism; Z87.01 Personal history of pneumonia (recurrent); Z79.891 Long term (current) use of opiate analgesic; Z79.899 Other long term (current) drug therapy; F17.210 Nicotine dependence, cigarettes, uncomplicated
CPT/HCPCS: 96372; 99282

== ENCOUNTER 2021-01-29 10:39 | Emergency (ER) | payer MEDICARE, MEDICAID, SELFPAY ==
[2021-01-29 10:39] VITALS: BP 146/83; PULSE 120; RESP 18; TEMP 35.8; O2SAT 95; BMI 18.1
--- NOTE | 2021-01-29 11:19 | ED.VIS.BACK ---
HPI History of Present Illness Chief Complaint: Back Narrative Narrative: Patient presents with low back pain. This is chronic and recurrent. She was trying to do laundry and the pain got somewhat worse, she has an appointment with her doctor in a few days, but she ran out of her muscle relaxants. No new symptoms no radiation on her legs, no saddle anesthesia no bowel or bladder compromise peer [facility] Medical History (Updated 01/29/21 @ 11:[address] Maverick Holcomb MD) Abnormal LFTs Alcoholism Anxiety COPD (chronic obstructive pulmonary disease) Elevated cholesterol History of pneumonia Thrombocytosis Home Medications albuterol sulfate 1 - 2 puff INHALATION Q4H PRN PRN #1 inhaler 05/02/15 [Rx Last Taken Unknown] atorvastatin 20 mg PO QHS 04/03/18 [History Last Taken Unknown] fluoxetine 80 mg PO DAILY 04/03/18 [History Last Taken Unknown] gabapentin 1,200 mg PO DAILY 04/03/18 [History Last Taken Unknown] omeprazole 40 mg PO PRN PRN 02/26/20 [History Last Taken Unknown] meloxicam [Mobic] 15 mg PO DAILY #14 tab 09/17/20 [Rx Last Taken Unknown] cyclobenzaprine 10 mg PO TID PRN #12 tab 01/23/21 [Rx Last Taken Unknown] tizanidine 4 mg PO Q8H PRN #14 tab 01/29/21 [Rx Last Taken Unknown] Allergy/AdvReac Type Severity Reaction Status Date / Time cortisone Allergy Swelling Verified 01/29/21 10:41 latex Allergy Itching Verified 01/29/21 10:41 Penicillins Allergy Hives Verified 01/29/21 10:41 Family History Mother Hypertension Hypercholesteremia Diabetes Social History Smoking Status: Current every day smoker tobacco type: cigarettes Tobacco: How many years used: 38 ROS ROS ED ROS Narrative Past medical history: Reviewed Medications: Reviewed Social history: Noncontributory Review of systems: All systems negative except as indicated General: No fever Neck: No neck pain Cardiovascular: No chest pain GI: No suprapubic pain Genitourinary: No dysuria, retention or incontinence Musculoskeletal: Back pain as in HPI Skin: No rash Neurological: No memory loss, confusion or any focal weakness Hematologic: No easy bleeding or easy bruising EXAM Physical Exam Narrative Exam Narrative: Vitals reviewed General: Patient appears in some discomfort HEENT: Moist mucous membranes Neck: Nontender Cardiovascular normal heart rate Respiratory: No respiratory difficulty speaking in full sentences Abdomen: Soft and nontender, there is no suprapubic mass or pain Back: There is some tenderness over the lumbar region, pain is spinal and paraspinal both. Extremities: Moves all extremities without joint pain or signs of trauma Neurological: There is normal plantar flexion and dorsiflexion of both feet and great toes. Patellar and Achilles reflexes are normal. Normal strength and sensation. Negative straight leg test. Skin: No rash Psychiatric: Slightly anxious. Const Vital Signs: 01/29/21 10:39 Temperature 96.4 F L Temperature Source Temporal Pulse Rate 120 H Respiratory Rate 18 Blood Pressure 146/83 H Blood Pressure Mean 104 Pulse Ox 95 Oxygen Delivery Method Room Air MDM MDM MDM Narrative Medical decision making narrative: Patient has a care plan, I will treat with IM Toradol and muscle relaxants. She does not have any signs or symptoms of cauda equina. Discharge Plan Triage Chief Complaint: Back ED Provider: Maverick Holcomb Dx/Rx/DC Orders Clinical Impression: Chronic back pain, Back pain Instructions: ED Back Care Tips Prescriptions: New tizanidine 4 mg tablet 4 mg PO Q8H PRN (Reason: muscle spasticity) Qty: 14 RF: 0 No Action albuterol sulfate 1 INHALER inhaler 1 - 2 puff INHALATION Q4H PRN PRN (Reason: Wheezing) Qty: 1 RF: 0 atorvastatin 20 MG tablet 20 mg PO QHS RF: 0 gabapentin 300 MG capsule 1,200 mg PO DAILY RF: 0 fluoxetine 20 MG capsule 80 mg PO DAILY RF: 0 omeprazole 40 MG capsule,delayed release(DR/EC) 40 mg PO PRN PRN (Reason: Indigestion) RF: 0 meloxicam [Mobic] 15 mg tablet 15 mg PO DAILY Qty: 14 RF: 0 cyclobenzaprine 10 mg tablet 10 mg PO TID PRN (Reason: muscle spasm) Qty: 12 RF: 0 Primary Care Provider: Jaylin Diehl NP Referrals: Jaylin Diehl NP, WILDLIFE BIOLOGY TECHNICIAN-C [Primary Care Provider] - 3-5 Days Disposition Disposition: Home, Self Care
[2021-01-29] MEDS: Ketorolac 30 MG/ML Syringe IM (11:29)
[2021-01-29] MEDS: Orphenadrine 60 MG/2 ML Ampul IM (11:30)
[2021-01-29 11:54] VITALS: BP 119/75; PULSE 76
== END 2021-01-29 11:58 | disposition home or self-care (01) ==
LOC: ED 11:34
PROVIDERS: Emergency Provider Emergency Medicine; PCP Internal Medicine
DX: M54.50 Low back pain, unspecified (principal); G89.29 Other chronic pain; E78.00 Pure hypercholesterolemia, unspecified; F41.9 Anxiety disorder, unspecified; J44.9 Chronic obstructive pulmonary disease, unspecified; Z86.2 Personal history of diseases of the blood and blood-forming organs and certain disorders involving the immune mechanism; Z87.01 Personal history of pneumonia (recurrent); Z79.899 Other long term (current) drug therapy; F17.210 Nicotine dependence, cigarettes, uncomplicated
CPT/HCPCS: 96372; 99282

== ENCOUNTER 2021-02-17 03:27 | Emergency (ER) | payer MEDICARE, MEDICAID, SELFPAY ==
[2021-02-17 03:27] VITALS: BP 154/94; PULSE 78; RESP 18; TEMP 36.5; O2SAT 98; BMI 19.1
--- NOTE | 2021-02-17 04:22 | EDS_ITS ---
HPI History of Present Illness Chief Complaint: Back Informant: patient Onset/Context/Timing Onset: Days Context: Gradual Onset Timing: Continuous Quality: Dull and Aching Location: See diagram and Lumbar Current Severity: Mild Maximum Severity: Mild Worsened by: improves with Movement Relieved by: Remaining Still Associated Symptoms Associated Symptoms: Negative for Numbness, Tingling, Fever, Abdominal Pain, Dysuria, Unable to Ambulate, Unable to Transfer, Urinary Retention, Urinary Incontinence, Constipation and Fecal Incontinence Narrative Narrative: 55-year-old female history of prior lumbar discectomy and laminectomy. Done a year ago. Patient states that she has had recurrent back pain. Denies any fall injury or trauma. No fever or dysuria. No bowel or bladder incontinence or retention. She had symptoms like this before. She is requesting something for pain. She used to go to pain management but does not follow-up with them anymore. Prior similar symptoms: Yes Recent Illness/Hospitalization: No PFSH PFSH Medical History (Updated 02/17/21 @ 04:[address] Eduardo Vee MD) Abnormal LFTs Alcoholism Anxiety COPD (chronic obstructive pulmonary disease) Elevated cholesterol History of pneumonia Thrombocytosis Home Medications albuterol sulfate 1 - 2 puff INHALATION Q4H PRN PRN #1 inhaler 05/02/15 [Rx Last Taken Unknown] atorvastatin 20 mg PO QHS 04/03/18 [History Last Taken Unknown] fluoxetine 80 mg PO DAILY 04/03/18 [History Last Taken Unknown] gabapentin 1,200 mg PO DAILY 04/03/18 [History Last Taken Unknown] omeprazole 40 mg PO PRN PRN 02/26/20 [History Last Taken Unknown] tizanidine 4 mg PO Q8H PRN #14 tab 01/29/21 [Rx Last Taken Unknown] Allergy/AdvReac Type Severity Reaction Status Date / Time cortisone Allergy Swelling Verified 01/29/21 11:33 latex Allergy Itching Verified 01/29/21 11:33 Penicillins Allergy Hives Verified 01/29/21 11:33 Family History Mother Hypertension Hypercholesteremia Diabetes Social History Smoking Status: Current every day smoker tobacco type: cigarettes Tobacco: How many years used: 38 ROS ROS ED ROS Narrative Back pain. Review of Systems ROS Unobtainable: Denies due to encephalopathy Constitutional Constitutional ED: Denies fever(s) Eyes Eyes: Denies change in vision ENT ENT ED: Denies ear pain Cardiovascular Cardiovascular: Denies chest pain Respiratory/Chest Respiratory/Chest: Denies dyspnea Gastrointestinal Gastrointestinal: Denies abdominal pain, diarrhea, nausea or vomiting Genitourinary Genitourinary ED: Denies dysuria or hematuria Musculoskeletal Musculoskeletal: Reports back pain; Denies arthralgias, myalgias or neck pain Integumentary Denies rash Neurologic Neurologic: Denies headache(s) Psychiatric Psychiatric: Denies depression Endocrine Endocrinology: Denies polyuria Hematologic/Lymphatic Hematologic/Lymphatic: Denies easy bruising Allergic/Immunologic Allergic/Immunologic ED: Denies urticaria EXAM Physical Exam Narrative Exam Narrative: No extrema no acute distress vital signs stable afebrile. HEENT exam unremarkable. Neck nontender no lymphadenopathy. Lungs clear to auscultation bilaterally. Heart regular rate and rhythm no murmur. Chest nontender. Abdomen soft nontender normal bowel sounds no peritoneal signs. Pelvic girdle intact. Moving all 4 extremities normal consumer insight analyst strength. Normal dorsi plantar flexion. No cauda equina. No saddle anesthesia. Negative straight leg raise bilaterally. 5-5 dorsi plantar flexion bilaterally. Back mild tenderness. High lumbar soft tissues. No ecchymosis or bruising no redness or warmth. No signs of trauma. Upper extremities have normal strength and range of motion. Neurologically she is awake and alert with no focal motor deficits. Const Vital Signs: 02/17/21 03:27 Temperature 97.7 F L Temperature Source Oral Pulse Rate 78 Respiratory Rate 18 Blood Pressure 154/94 H Blood Pressure Mean 114 Pulse Ox 98 Oxygen Delivery Method Room Air Positive well nourished and well developed; Negative for obese, cachectic, contractures or unkempt General Appearance ED: well developed and NAD; Negative for unkempt, cachectic, contractures or pallor Nutritional Appearance: Negative for cachectic or obese HEENT Reports moist mucous membranes Negative for trauma or tenderness Eyes PERRL and EOMs intact bilaterally Neck no lymphadenopathy, supple and no JVD General: Negative for tenderness Resp normal respiratory effort and clear to auscultation bilaterally Cardio regular rate, regular rhythm, S1 normal heart sound, S2 normal heart sound and no murmurs GI normal to inspection, nondistended, normoactive bowel sounds, soft to palpation, non-tender, non-distended and no masses Palpation: Negative for tender, guarding or rebound tenderness present Back/Spine no thoracic nor lumbar tenderness; Negative for normal to inspection General Back: Negative for CVA tenderness Cervical Spine: Negative for paracervical muscle tenderness Thoracic Spine / Upper Back: paraspinal muscle tenderness Lumbar Spine / Lower Back: straight leg raise negative bilaterally Extremity normal to inspection Extremity Narrative: Both lower extremities are neurovascular intact with 5-5 motor strength and sensation. General Extremety ED: Negative for edema or tenderness General Extremity: Negative for edema Neuro oriented x3 and no sensory deficits noted Sensorium / Orientation: alert; Negative for confused, lethargic or stuporous Motor Exam: strength 5/5 throughout Psych mental status grossly normal Appearance: Negative for unkempt Mood & Affect: Negative for depressed or tearful Skin no rashes or lesions noted and no wounds General Skin Exam: Negative for jaundice or pallor Rashes: No rashes noted MDM MDM MDM Narrative Medical decision making narrative: Patient with acute on chronic back pain. Exam is benign. She has a care plan. She will be treated with IM Toradol and discharged home. Discharge Plan Triage Chief Complaint: Back ED Provider: Eduardo Vee Dx/Rx/DC Orders Clinical Impression: Back pain, Chronic back pain Instructions: ED Chronic Pain Prescriptions: No Action albuterol sulfate 1 INHALER inhaler 1 - 2 puff INHALATION Q4H PRN PRN (Reason: Wheezing) Qty: 1 RF: 0 atorvastatin 20 MG tablet 20 mg PO QHS RF: 0 gabapentin 300 MG capsule 1,200 mg PO DAILY RF: 0 fluoxetine 20 MG capsule 80 mg PO DAILY RF: 0 omeprazole 40 MG capsule,delayed release(DR/EC) 40 mg PO PRN PRN (Reason: Indigestion) RF: 0 tizanidine 4 mg tablet 4 mg PO Q8H PRN (Reason: muscle spasticity) Qty: 14 RF: 0 Primary Care Provider: Paolo Girard Referrals: Paolo Girard MD [Primary Care Provider] - 3-5 Days if not improving Activity Restrictions/Additional Instructions: Hot shower, warm bath and massage to relax the muscles in your back. Motrin and Tylenol for pain. Follow-up with your doctor if not improving. Disposition Disposition: Home, Self Care
[2021-02-17] MEDS: Ketorolac 60 MG/2 ML Vial IM (04:42)
== END 2021-02-17 04:58 | disposition home or self-care (01) ==
LOC: ED 04:33
PROVIDERS: Emergency Provider Emergency Medicine; PCP Internal Medicine
DX: M54.9 Dorsalgia, unspecified (principal); G89.29 Other chronic pain; E78.00 Pure hypercholesterolemia, unspecified; F41.9 Anxiety disorder, unspecified; J44.9 Chronic obstructive pulmonary disease, unspecified; Z86.2 Personal history of diseases of the blood and blood-forming organs and certain disorders involving the immune mechanism; Z87.01 Personal history of pneumonia (recurrent); Z98.890 Other specified postprocedural states; Z79.899 Other long term (current) drug therapy; F17.210 Nicotine dependence, cigarettes, uncomplicated
CPT/HCPCS: 96372; 99283

== ENCOUNTER 2021-02-25 23:30 | Emergency (ER) | payer MEDICARE, MEDICAID, SELFPAY ==
[2021-02-25 23:31] VITALS: BP 151/98; PULSE 83; RESP 18; TEMP 35.8; O2SAT 97; BMI 18.6
--- NOTE | 2021-02-25 23:42 | ED.VIS.FALL ---
HPI HPI - Fall History of Present Illness Chief Complaint: Fall Occured/Mechanism Occurred: Today Mechanism/Context: Yes same level fall Pain/Injury Pain Location: other (Sacrum) Quality of Pain: Sharp Worsened by: Nothing Relieved by: Nothing Associated Symptoms Associated Symptoms: Negative for Parasthesias, Weakness, Loss of function, Inability to ambulate and Loss of consciousness Narrative Narrative: Patient presents after a fall earlier today. Patient states she fell backwards and landed on her tailbone. Patient states she had a history of surgery on her tailbone and is concerned that this fall disrupted the surgery. Patient states her pain is sharp. Patient states her pain goes into her right hip. Patient states she has chronic numbness and tingling down her right leg. Patient denies any new paresthesias or weakness. Patient denies any head injury or loss of consciousness. Patient states nothing makes her pain worse and nothing makes it better. [facility] Medical History (Updated 02/26/21 @ 00:[address] Marko Lopez DO) Abnormal LFTs Alcoholism Anxiety COPD (chronic obstructive pulmonary disease) Elevated cholesterol History of pneumonia Thrombocytosis Home Medications albuterol sulfate 1 - 2 puff INHALATION Q4H PRN PRN #1 inhaler 05/02/15 [Rx Last Taken Unknown] atorvastatin 20 mg PO QHS 04/03/18 [History Last Taken Unknown] fluoxetine 80 mg PO DAILY 04/03/18 [History Last Taken Unknown] gabapentin 1,200 mg PO DAILY 04/03/18 [History Last Taken Unknown] omeprazole 40 mg PO PRN PRN 02/26/20 [History Last Taken Unknown] tizanidine 4 mg PO Q8H PRN #14 tab 01/29/21 [Rx Last Taken Unknown] tramadol 50 mg PO Q6H PRN 3 Days #10 tab 02/26/21 [Rx Last Taken Unknown] Allergy/AdvReac Type Severity Reaction Status Date / Time cortisone Allergy Swelling Verified 02/25/21 23:33 latex Allergy Itching Verified 02/25/21 23:33 Penicillins Allergy Hives Verified 02/25/21 23:33 Family History Mother Hypertension Hypercholesteremia Diabetes Surgical History (Updated 02/25/21 @ 23:[address] Marko Lopez DO) History of hysterectomy Social History Smoking Status: Current every day smoker tobacco type: cigarettes Tobacco: How many years used: 38 ROS ROS ED Constitutional Constitutional ED: Denies chills or fever(s) Eyes Eyes: Denies blurry vision or change in vision ENT ENT ED: Denies rhinorrhea or sore throat Cardiovascular Cardiovascular: Denies chest pain or palpitations Respiratory/Chest Respiratory/Chest: Reports dyspnea; Denies cough Gastrointestinal Gastrointestinal: Reports nausea and vomiting Genitourinary Genitourinary ED: Denies dysuria or hematuria Musculoskeletal Musculoskeletal: Reports back pain; Denies neck pain Integumentary Denies abscess or rash Neurologic Neurologic: Denies headache(s) or weakness Allergic/Immunologic Allergic/Immunologic ED: Denies mouth swelling or urticaria EXAM Physical Exam Const Vital Signs: 02/25/21 23:31 02/25/21 23:44 Temperature 96.5 F L Temperature Source Temporal Pulse Rate 83 Respiratory Rate 18 Respiratory Effort Normal Blood Pressure 151/98 H Blood Pressure Mean 115 Pulse Ox 97 Oxygen Delivery Method Room Air Positive well nourished and well developed General Appearance ED: well developed HEENT Reports normocephalic atraumatic Neck full ROM and supple Back/Spine Back/Spine Narrative: There is tenderness over the sacrum. There is also some mild tenderness over the posterior aspect of the right hip. There is no deformity noted. There is no bony crepitance or step-off. There is good range of motion. Strength is 5/5 bilaterally in the lower extremities. There are no sensory deficits noted. Neuro oriented x3, CN's II-XII intact bilaterally, moves all extremities, no focal motor deficits and no sensory deficits noted Sensorium / Orientation: alert Psych mental status grossly normal MDM MDM MDM Narrative Medical decision making narrative: X-rays of the sacrum were obtained. There are 3 views. On my interpretation, there is no acute fracture. There is no displacement. There is no soft tissue swelling. Radiologist also interpreted the x-rays and agrees. Patient was given a dose of tramadol here. Patient was given a prescription for a short-term course of tramadol. Patient was instructed to follow-up with her primary care physician for further management of her pain. Patient understands and is agreeable with the plan. All questions were answered. Radiography Diagnostic Testing: Clinical Impression(s) from Imaging Studies Sacrum and Coccyx X-Ray 02/25/21 23:55 IMPRESSION: Normal x-rays of the sacrum and coccyx. Electronically Signed: Bruce Bautista DO at 0:01 EST Tel , Service support , Discharge Plan Triage Chief Complaint: Fall ED Provider: Marko Lopez Dx/Rx/DC Orders Clinical Impression: Contusion of sacrum Instructions: ED Coccyx or Sacrum Contusion Prescriptions: New tramadol 50 MG tablet 50 mg PO Q6H PRN (Reason: pain) 3 Days Qty: 10 RF: 0 No Action albuterol sulfate 1 INHALER inhaler 1 - 2 puff INHALATION Q4H PRN PRN (Reason: Wheezing) Qty: 1 RF: 0 atorvastatin 20 MG tablet 20 mg PO QHS RF: 0 gabapentin 300 MG capsule 1,200 mg PO DAILY RF: 0 fluoxetine 20 MG capsule 80 mg PO DAILY RF: 0 omeprazole 40 MG capsule,delayed release(DR/EC) 40 mg PO PRN PRN (Reason: Indigestion) RF: 0 tizanidine 4 mg tablet 4 mg PO Q8H PRN (Reason: muscle spasticity) Qty: 14 RF: 0 Primary Care Provider: Paolo Girard Referrals: Paolo Girard MD [Primary Care Provider] - 3-5 Days Disposition Disposition: Home, Self Care
--- NOTE | 2021-02-25 23:55 | RAD_ITS ---
STUDY: X-RAY - SACRUM/COCCYX REASON FOR EXAM: Female, 55 years old. Injury TECHNIQUE: 3 view(s) of the sacrum and coccyx were obtained. COMPARISON: None. FINDINGS: Normal bilateral sacroiliac joints. Normal visualized sacral ala and fused sacral bodies. Normal sacrococcygeal junction with a normal angulation. Normal coccygeal segments. The presacral soft tissue structures are unremarkable. RAD/Sacrum-Coccyx min 2 Views IMPRESSION: Normal x-rays of the sacrum and coccyx. Electronically Signed: Bruce Bautista DO at 0:01 EST Tel , Service support ,
[2021-02-26] MEDS: traMADol 50 MG Tablet PO (00:21)
[2021-02-26 00:26] VITALS: BP 149/60; PULSE 78; RESP 18
== END 2021-02-26 00:27 | disposition home or self-care (01) ==
PROVIDERS: Emergency Provider Emergency Medicine; PCP Internal Medicine
DX: S30.0XXA Contusion of lower back and pelvis, initial encounter (principal); W19.XXXA Unspecified fall, initial encounter; Y93.9 Activity, unspecified; Y92.9 Unspecified place or not applicable; F41.9 Anxiety disorder, unspecified; E78.00 Pure hypercholesterolemia, unspecified; J44.9 Chronic obstructive pulmonary disease, unspecified; Z79.899 Other long term (current) drug therapy; F17.210 Nicotine dependence, cigarettes, uncomplicated
CPT/HCPCS: 72220; 99283

== ENCOUNTER 2021-04-14 11:22 | Emergency (ER) | payer MEDICARE, MEDICAID, SELFPAY ==
[2021-04-14 11:24] VITALS: BP 136/112; PULSE 102; RESP 18; TEMP 35.8; O2SAT 100; BMI 18.6
--- NOTE | 2021-04-14 11:58 | EX.ED.DYSGE1 ---
HPI History of Present Illness Chief Complaint: Back Informant: patient Narrative Narrative: 55-year-old female with chronic back pain presents the emergency room with back pain. She states she was walking out of the grocery store carrying groceries and her back started hurting. Because her doctor just gave to a baby she was unable to get to see her. She states she used to be in pain management with Dr. Maynard but then he ruined her back worse and now she may need surgery again so she does not have a pain management doctor. She also states that she recently had dental extraction and her teeth are hurting her where they used to be. The patient denies any fever or radiculopathy at this time. No bowel or bladder dysfunction. No rashes PFSH PFSH Medical History (Updated 04/14/21 @ 11:[address] Jeet Esquivel, ) Abnormal LFTs Alcoholism Anxiety COPD (chronic obstructive pulmonary disease) Elevated cholesterol History of pneumonia Thrombocytosis Home Medications albuterol sulfate 1 - 2 puff INHALATION Q4H PRN PRN #1 inhaler 05/02/15 [Rx Last Taken Unknown] atorvastatin 20 mg PO QHS 04/03/18 [History Last Taken Unknown] fluoxetine 80 mg PO DAILY 04/03/18 [History Last Taken Unknown] gabapentin 1,200 mg PO DAILY 04/03/18 [History Last Taken Unknown] omeprazole 40 mg PO PRN PRN 02/26/20 [History Last Taken Unknown] Allergy/AdvReac Type Severity Reaction Status Date / Time cortisone Allergy Swelling Verified 04/14/21 11:25 latex Allergy Itching Verified 04/14/21 11:25 Penicillins Allergy Hives Verified 04/14/21 11:25 Family History Mother Hypertension Hypercholesteremia Diabetes Surgical History (Updated 04/14/21 @ 11:38 by Senia Rosa) History of back surgery History of hysterectomy Social History Smoking Status: Current every day smoker tobacco type: cigarettes Tobacco: How many years used: 38 ROS ROS ED Constitutional Constitutional ED: Denies chills, fever(s) or weight loss Eyes Eyes: Denies change in vision or diplopia ENT ENT ED: Reports other Details: Dental pain ; Denies ear pain, rhinorrhea or sore throat Cardiovascular Cardiovascular: Denies chest pain, orthopnea, palpitations or racing heartbeat Respiratory/Chest Respiratory/Chest: Denies cough, dyspnea or orthopnea Gastrointestinal Gastrointestinal: Denies abdominal pain, diarrhea, nausea or vomiting Genitourinary Genitourinary ED: Denies dysuria, hematuria or urinary frequency Musculoskeletal Musculoskeletal: Reports back pain; Denies arthralgias or myalgias Integumentary Denies abscess or rash Neurologic Neurologic: Denies headache(s) or weakness Psychiatric Psychiatric: Denies anxiety, depression, suicidal ideation or suicidal thoughts Endocrine Endocrinology: Denies polydipsia, polyphagia or polyuria Allergic/Immunologic Allergic/Immunologic ED: Denies mouth swelling, tongue swelling or urticaria EXAM Physical Exam Const Vital Signs: 04/14/21 11:24 Temperature 96.5 F L Temperature Source Temporal Pulse Rate 102 H Respiratory Rate 18 Blood Pressure 136/112 H Blood Pressure Mean 120 Pulse Ox 100 Oxygen Delivery Method Room Air Positive well nourished and well developed General Appearance ED: well developed HEENT Reports normocephalic, head/scalp atraumatic, TM's clear and moist mucous membranes HEENT Narrative: No trismus. No dry socket noted. No obvious swelling or infection floor the mouth is soft Negative for trauma Tympanic Membrane ED: Yes TM's clear Eyes PERRL and EOMs intact bilaterally Neck no lymphadenopathy, supple and no JVD Resp normal respiratory effort and clear to auscultation bilaterally Cardio regular rate, regular rhythm and no murmurs GI normal to inspection, nondistended, normoactive bowel sounds and non-tender Palpation: soft Back/Spine no CVA tenderness and normal ROM Back/Spine Narrative: Lumbar paraspinal musculature tenderness Extremity normal to inspection General Extremety ED: Negative for edema General Extremity: Negative for edema Neuro oriented x3 and CN's II-XII intact bilaterally Sensorium / Orientation: alert Motor Exam: strength 5/5 throughout Psych Attitude: agitated Skin no rashes or lesions noted MDM MDM MDM Narrative Medical decision making narrative: Patient was extremely defensive when I began to talk about her chronic pain. I do not see a medical emergency here today. She can see her dentist and follow-up. I will give her a shot of Toradol Discharge Plan Triage Chief Complaint: Back ED Provider: Jeet Esquivel Dx/Rx/DC Orders Clinical Impression: Chronic back pain, Pain, dental Instructions: ED Chronic Pain Prescriptions: No Action albuterol sulfate 1 INHALER inhaler 1 - 2 puff INHALATION Q4H PRN PRN (Reason: Wheezing) Qty: 1 RF: 0 atorvastatin 20 MG tablet 20 mg PO QHS RF: 0 gabapentin 300 MG capsule 1,200 mg PO DAILY RF: 0 fluoxetine 20 MG capsule 80 mg PO DAILY RF: 0 omeprazole 40 MG capsule,delayed release(DR/EC) 40 mg PO PRN PRN (Reason: Indigestion) RF: 0 Primary Care Provider: Jaylin Diehl NP Referrals: Jaylin Diehl NP, DIABETES EDUCATOR-C [Primary Care Provider] - Disposition Disposition: Home, Self Care
[2021-04-14] MEDS: Ketorolac 15 MG/ML Vial IM (12:02)
== END 2021-04-14 12:05 | disposition home or self-care (01) ==
LOC: ED 12:02
PROVIDERS: Emergency Provider Emergency Medicine; PCP Nurse Practitioner Family; Visit Provider Emergency Medicine
DX: M54.9 Dorsalgia, unspecified (principal); J44.9 Chronic obstructive pulmonary disease, unspecified; K08.89 Other specified disorders of teeth and supporting structures; F17.210 Nicotine dependence, cigarettes, uncomplicated; G89.29 Other chronic pain; E78.00 Pure hypercholesterolemia, unspecified; Z98.818 Other dental procedure status; Z87.01 Personal history of pneumonia (recurrent); Z86.2 Personal history of diseases of the blood and blood-forming organs and certain disorders involving the immune mechanism; Z79.899 Other long term (current) drug therapy
CPT/HCPCS: 96372; 99283

== ENCOUNTER 2021-07-24 03:01 | Emergency (ER) | payer MEDICARE, MEDICAID, SELFPAY ==
[2021-07-24 03:02] VITALS: BP 161/97; PULSE 90; RESP 18; TEMP 36.3; O2SAT 97; BMI 19.2
--- NOTE | 2021-07-24 03:29 | EDS_ITS ---
HPI History of Present Illness Chief Complaint: Back Narrative Narrative: Patient is 55-year-old female with past medical history of chronic back pain. She states that today she did some mopping and sweeping. She states that she did not have any acute pain while doing this but that this evening despite taking her medications noticed tension and spasm and pain in the neck but more so on the right side. She also reports she is right-hand dominant. Patient states that she contacted her doctor based on her pain and the fact it was not resolving with her normal medications and was therefore advised to come to the hospital for evaluation. [facility] Medical History (Updated 07/24/21 @ 03:[address] Lopez Rivera DO) Abnormal LFTs Alcoholism Anxiety COPD (chronic obstructive pulmonary disease) Elevated cholesterol History of pneumonia Thrombocytosis Home Medications albuterol sulfate 1 - 2 puff INHALATION Q4H PRN PRN #1 inhaler 05/02/15 [Rx Last Taken Unknown] atorvastatin 20 mg PO QHS 04/03/18 [History Last Taken Unknown] fluoxetine 80 mg PO DAILY 04/03/18 [History Last Taken Unknown] gabapentin 1,200 mg PO DAILY 04/03/18 [History Last Taken Unknown] omeprazole 40 mg PO PRN PRN 02/26/20 [History Last Taken Unknown] acetaminophen [Tylenol Arthritis] 650 mg PO Q8H PRN 07/24/21 [History Last Taken Unknown] oxycodone-acetaminophen [Percocet] 1 tab PO Q6H PRN 3 Days #12 tab 07/24/21 [Rx Last Taken Unknown] Allergy/AdvReac Type Severity Reaction Status Date / Time cortisone Allergy Swelling Verified 07/24/21 03:05 latex Allergy Itching Verified 07/24/21 03:05 Penicillins Allergy Hives Verified 07/24/21 03:05 meloxicam AdvReac Vomiting Verified 07/24/21 03:05 Family History Mother Hypertension Hypercholesteremia Diabetes Surgical History History of back surgery History of hysterectomy Social History Smoking Status: Current every day smoker tobacco type: cigarettes Tobacco: How many years used: 38 ROS ROS ED Constitutional Constitutional ED: Denies chills or fever(s) ENT ENT ED: Denies sore throat Cardiovascular Cardiovascular: Denies chest pain Respiratory/Chest Respiratory/Chest: Denies cough or dyspnea Gastrointestinal Gastrointestinal: Denies abdominal pain, diarrhea, nausea or vomiting Genitourinary Genitourinary ED: Denies dysuria Musculoskeletal Musculoskeletal: Reports back pain and neck pain; Denies myalgias Integumentary Denies rash Neurologic Neurologic: Denies headache(s) Hematologic/Lymphatic Hematologic/Lymphatic: Denies easy bleeding or easy bruising EXAM Physical Exam Const Vital Signs: 07/24/21 03:02 07/24/21 03:46 Temperature 97.3 F L Temperature Source Temporal Pulse Rate 90 78 Respiratory Rate 18 16 Blood Pressure 161/97 H 146/72 H Blood Pressure Mean 118 Pulse Ox 97 Oxygen Delivery Method Room Air Positive well nourished and well developed General Appearance ED: well developed HEENT Reports moist mucous membranes HEENT Narrative: No signs of infection in the posterior pharynx Eyes PERRL and EOMs intact bilaterally Neck Neck Narrative: No bony deformity or step-off of the cervical spine. There is bilateral tension/spasm noted but is greatest on the right. There is pain on palpation over top the muscular spasms as well as with motion but no obvious meningeal sign. Resp normal respiratory effort and clear to auscultation bilaterally Cardio regular rate and regular rhythm GI normal to inspection, nondistended, normoactive bowel sounds, non-tender, non- distended and no masses Auscultation: normoactive bowel sounds Palpation: soft Back/Spine Back/Spine Narrative: No bony deformity or step-off of the thoracic or lumbar spine Extremity normal to inspection Extremity Narrative: Bilateral upper extremities are neurovascularly intact; AIN/PIN are intact and normal Neuro oriented x3 and CN's II-XII intact bilaterally Sensorium / Orientation: alert Psych mental status grossly normal Skin no rashes or lesions noted Skin Narrative: No overlying soft tissue changes to suggest trauma or infection MDM MDM MDM Narrative Medical decision making narrative: Patient presented to the ER with increased neck/back pain with no known trauma. She did have activity today such as vacuuming and sweeping and on exam she had muscular tension and spasm which would correlate with these activities. She is currently on muscle relaxers and neuromodulators and therefore she will be given pain control at this time. However as the exam and history do not show signs of infection or obvious nerve impingement or signs of trauma there is no need for further work-up and patient is safe for discharge Discharge Plan Triage Chief Complaint: Back ED Provider: Lopez Rivera Dx/Rx/DC Orders Clinical Impression: Acute exacerbation of chronic low back pain, Cervical paraspinal muscle spasm Instructions: ED Back Pain (Acute or Chronic), ED Back Sprain/Strain Prescriptions: New oxycodone-acetaminophen [Percocet] 5-325 mg tablet 1 tab PO Q6H PRN (Reason: pain) 3 Days Qty: 12 RF: 0 No Action albuterol sulfate 1 INHALER inhaler 1 - 2 puff INHALATION Q4H PRN PRN (Reason: Wheezing) Qty: 1 RF: 0 atorvastatin 20 MG tablet 20 mg PO QHS RF: 0 gabapentin 300 MG capsule 1,200 mg PO DAILY RF: 0 fluoxetine 20 MG capsule 80 mg PO DAILY RF: 0 omeprazole 40 MG capsule,delayed release(DR/EC) 40 mg PO PRN PRN (Reason: Indigestion) RF: 0 acetaminophen [Tylenol Arthritis] 650 mg Tablet Extended Release 650 mg PO Q8H PRN (Reason: Pain) RF: 0 Primary Care Provider: Jaylin Diehl NP Referrals: Jaylin Diehl LENS ASSISTANT, LENS ASSISTANT-C [Primary Care Provider] - Disposition Disposition: Home, Self Care Discharge Date/Time: 07/24/21 03:59
[2021-07-24] MEDS: Ondansetron ODT 4 MG Tablet PO (03:38)
[2021-07-24] MEDS: morphine 10 MG/ML Syringe 8 MG IM (03:39)
[2021-07-24 03:46] VITALS: BP 146/72; PULSE 78; RESP 16
== END 2021-07-24 03:59 | disposition home or self-care (01) ==
LOC: ED 03:40
PROVIDERS: Emergency Provider Emergency Medicine; PCP Nurse Practitioner Family; Visit Provider Emergency Medicine
DX: M54.50 Low back pain, unspecified (principal); J44.9 Chronic obstructive pulmonary disease, unspecified; M62.830 Muscle spasm of back; E78.00 Pure hypercholesterolemia, unspecified; F17.210 Nicotine dependence, cigarettes, uncomplicated; F41.9 Anxiety disorder, unspecified; Z86.2 Personal history of diseases of the blood and blood-forming organs and certain disorders involving the immune mechanism; Z79.899 Other long term (current) drug therapy; G89.29 Other chronic pain
CPT/HCPCS: 96372; 99283

== ENCOUNTER 2021-08-03 08:03 | Emergency (ER) | payer MEDICARE, MEDICAID, SELFPAY ==
[2021-08-03 08:04] VITALS: BP 116/76; PULSE 88; RESP 16; TEMP 36.2; O2SAT 98; BMI 18.8
--- NOTE | 2021-08-03 08:24 | RAD_ITS ---
STUDY: X-RAY - PELVIS AND RIGHT HIP REASON FOR EXAM: Right hip pain and limited range of motion, no specific injury. TECHNIQUE: 2 views of the pelvis and hip. COMPARISON: Radiographs 11/08/2019. FINDINGS: Normal visualized soft tissue structures. Normal bilateral iliac wings, sacroiliac joints and visualized sacrum. Normal bilateral superior and inferior pubic rami. Normal pubic symphysis. Normal bilateral ischial tuberosities. Normal visualized femoral head. Normal acetabulum. Normal hip joint. RAD/HIP, UNI W/ Pelvis 2-3 Views IMPRESSION: Normal x-ray examination of the right hip. Electronically Signed: Sukhjinder Wing MD at 9:05 EDT ,
--- NOTE | 2021-08-03 08:48 | EDS_ITS ---
HPI History of Present Illness Chief Complaint: Lower Extremity Injury Informant: patient Narrative Narrative: Increasing right hip pain after planting barrios yesterday. History of chronic back and hip pain. She states she is established with new pain management doctor recently Dr. Martin. She has had surgery to her back. She reports she needs to go through pain management for injections for insurance prior to surgery. She denies any direct falls. She drove her self here. She reported need help outside the car. Allergies to meloxicam. She is on gabapentin. She states has been trying to call pain management all morning has not received a call back. States currently not getting any opiate prescriptions from them. Of note she was seen here 10 days ago for back pain was given prescription for Percocet. Prior similar symptoms: Yes PFSH PFSH Medical History Abnormal LFTs Alcoholism Anxiety COPD (chronic obstructive pulmonary disease) Elevated cholesterol History of pneumonia Thrombocytosis Home Medications albuterol sulfate 1 - 2 puff INHALATION Q4H PRN PRN #1 inhaler 05/02/15 [Rx Last Taken Unknown] atorvastatin 20 mg PO QHS 04/03/18 [History Last Taken Unknown] fluoxetine 80 mg PO DAILY 04/03/18 [History Last Taken Unknown] gabapentin 1,200 mg PO DAILY 04/03/18 [History Last Taken Unknown] omeprazole 40 mg PO PRN PRN 02/26/20 [History Last Taken Unknown] acetaminophen [Tylenol Arthritis] 650 mg PO Q8H PRN 07/24/21 [History Last Taken Unknown] oxycodone-acetaminophen [Percocet] 1 tab PO Q6H PRN 3 Days #12 tab 07/24/21 [Rx Last Taken Unknown] Allergy/AdvReac Type Severity Reaction Status Date / Time cortisone Allergy Swelling Verified 08/03/21 08:06 latex Allergy Itching Verified 08/03/21 08:06 Penicillins Allergy Hives Verified 08/03/21 08:06 meloxicam AdvReac Vomiting Verified 08/03/21 08:06 Family History Mother Hypertension Hypercholesteremia Diabetes Surgical History History of back surgery History of hysterectomy Social History Smoking Status: Current every day smoker tobacco type: cigarettes Tobacco: How many years used: 38 ROS ROS ED Constitutional Constitutional ED: Denies chills, fever(s) or sweats Eyes Eyes: Denies change in vision ENT ENT ED: Denies dysphagia or sore throat Cardiovascular Cardiovascular: Denies chest pain, leg edema, palpitations or racing heartbeat Respiratory/Chest Respiratory/Chest: Denies cough, dyspnea or dyspnea on exertion Gastrointestinal Gastrointestinal: Denies abdominal pain, diarrhea, nausea or vomiting Genitourinary Genitourinary ED: Denies dysuria, hematuria or urinary frequency Musculoskeletal Musculoskeletal: Reports other Details: Right hip pain ; Denies back pain, extremity pain or neck pain Integumentary Denies rash or wounds Neurologic Neurologic: Denies headache(s), paresthesias or weakness EXAM Physical Exam Const Vital Signs: 08/03/21 08:04 08/03/21 10:04 Temperature 97.1 F L Temperature Source Temporal Pulse Rate 88 81 Respiratory Rate 16 16 Blood Pressure 116/76 149/75 H Blood Pressure Mean 89 Pulse Ox 98 97 Oxygen Delivery Method Room Air Positive well nourished and well developed General Appearance ED: well developed and NAD HEENT Reports moist mucous membranes normocephalic and atraumatic Eyes PERRL, EOMs intact bilaterally and conjunctivae normal General Eye ED: Yes normal appearance of both eyes Neck no lymphadenopathy and supple General: Negative for tenderness Chest Wall Chest: Negative for tenderness Resp normal respiratory effort and normal air movement Effort and Inspection: symmetric chest movement; Negative for respiratory distress Cardio regular rate, regular rhythm and no murmurs Peripheral Pulses: pulses 2+ throughout GI normal to inspection, nondistended, normoactive bowel sounds and non-tender Palpation: Negative for guarding or rebound tenderness present Back/Spine no CVA tenderness and no thoracic nor lumbar tenderness Extremity Extremity Narrative: Right lower extremity negative logroll no shortening or deformities tender palpation lateral hip. Neuro vas intact distally. General Extremety ED: Negative for edema or tenderness General Extremity: Negative for edema Neuro oriented x3 and no sensory deficits noted Sensorium / Orientation: awake and alert Skin no rashes or lesions noted and no wounds MDM MDM MDM Narrative Medical decision making narrative: Three-view x-ray hip and pelvis right side obtained reviewed by myself shows no fracture or dislocation. Patient established pain management I discussed with patient extensively can give her a pain shot here however cannot write her prescription. Although she received a prescription 10 days ago unclear if she it was known if she is established with pain management that time. Discussed she typically would have a contract with them and she can be discharged however she states she does not think she signed a contract. I discussed with her she has physically seen Dr. Martin's office therefore is established there for any further prescriptions need to be written by them. Her x-ray is negative. She is given a morphine injection we discharged home with a ride. All questions were answered. Radiography X-Ray: Right Hip, Read by ED Physician and No Fracture Diagnostic Testing: Clinical Impression(s) from Imaging Studies Hip/Pelvis X-Ray 08/03/21 08:24 IMPRESSION: Normal x-ray examination of the right hip. Electronically Signed: Sukhjinder Wing MD at 9:05 EDT Reading Location ID and State: [facility] / [place] Tel , Service support , Discharge Plan Triage Chief Complaint: Lower Extremity Injury ED Provider: Bear Bullard Dx/Rx/DC Orders Clinical Impression: Strain of right hip, Chronic back pain Instructions: ED Hip Strain Prescriptions: No Action albuterol sulfate 1 INHALER inhaler 1 - 2 puff INHALATION Q4H PRN PRN (Reason: Wheezing) Qty: 1 RF: 0 atorvastatin 20 MG tablet 20 mg PO QHS RF: 0 gabapentin 300 MG capsule 1,200 mg PO DAILY RF: 0 fluoxetine 20 MG capsule 80 mg PO DAILY RF: 0 omeprazole 40 MG capsule,delayed release(DR/EC) 40 mg PO PRN PRN (Reason: Indigestion) RF: 0 acetaminophen [Tylenol Arthritis] 650 mg Tablet Extended Release 650 mg PO Q8H PRN (Reason: Pain) RF: 0 oxycodone-acetaminophen [Percocet] 5-325 mg tablet 1 tab PO Q6H PRN (Reason: pain) 3 Days Qty: 12 RF: 0 Primary Care Provider: Jaylin Diehl NP Referrals: Jaylin Diehl ENDOSCOPY REGISTERED NURSE, ENDOSCOPY REGISTERED NURSE-C [Primary Care Provider] - 2 Days Activity Restrictions/Additional Instructions: Hip x-ray is negative. Continue home medications. Follow-up with your pain doctor, Dr. Martin for any stronger prescriptions. Disposition Disposition: Home, Self Care Discharge Date/Time: 08/03/21 10:05
[2021-08-03] MEDS: Morphine 4 MG/ML Syringe IM (09:47)
[2021-08-03 10:04] VITALS: BP 149/75; PULSE 81; RESP 16; O2SAT 97
== END 2021-08-03 10:05 | disposition home or self-care (01) ==
PROVIDERS: Emergency Provider Emergency Medicine; PCP Nurse Practitioner Family; Visit Provider Emergency Medicine
DX: S76.011A Strain of muscle, fascia and tendon of right hip, initial encounter (principal); J44.9 Chronic obstructive pulmonary disease, unspecified; X58.XXXA Exposure to other specified factors, initial encounter; G89.29 Other chronic pain; M54.9 Dorsalgia, unspecified; M25.551 Pain in right hip; Z79.899 Other long term (current) drug therapy; F41.9 Anxiety disorder, unspecified; Z86.2 Personal history of diseases of the blood and blood-forming organs and certain disorders involving the immune mechanism; Z87.01 Personal history of pneumonia (recurrent); F17.210 Nicotine dependence, cigarettes, uncomplicated
CPT/HCPCS: 73502; 96372; 99282

== ENCOUNTER 2021-08-06 00:01 | Emergency (ER) | payer MEDICARE, MEDICAID, SELFPAY ==
[2021-08-06 00:02] VITALS: BP 148/93; PULSE 102; RESP 16; TEMP 36.7; O2SAT 99; BMI 17.4
--- NOTE | 2021-08-06 00:19 | EDS_ITS ---
HPI History of Present Illness Chief Complaint: Back Detail of Chief Complaint: Back pain x5 days Informant: patient Narrative Narrative: Patient presents to the emergency department complaint back pain x5 days. Patient states that she twisted wrong and has had pain since that time. Patient states that she was advised by her primary care physician as well as her pain management doctors and her orthopedic surgeon to come to the ER to be evaluated. Patient denies direct trauma. She does have history of chronic back pain. In 2019 she had a discectomy and laminectomy performed by Dr. Spicer locally. Patient states that she had an MRI recently and on July 13 got her results and was recommended that she have surgery again but she would prefer to try to defer that. She complains of some pain radiating into her right buttock and had some pain into the medial thigh but no longer. She denies weakness in extremities. She denies change in bowel or bladder function. Patient was seen here on the of the month for some neck pain issues and was prescribed a few oxycodone at that time. Patient has since run out. Patient is scheduled to see pain management to establish with them on August 13. Patient has an appointment with her orthopedic back surgeon on August 14. Prior similar symptoms: Yes PFSH [facility] Medical History Abnormal LFTs Alcoholism Anxiety COPD (chronic obstructive pulmonary disease) Elevated cholesterol History of pneumonia Thrombocytosis Home Medications albuterol sulfate 1 - 2 puff INHALATION Q4H PRN PRN #1 inhaler 05/02/15 [Rx Last Taken Unknown] atorvastatin 20 mg PO QHS 04/03/18 [History Last Taken Unknown] fluoxetine 80 mg PO DAILY 04/03/18 [History Last Taken Unknown] gabapentin 1,200 mg PO DAILY 04/03/18 [History Last Taken Unknown] omeprazole 40 mg PO PRN PRN 02/26/20 [History Last Taken Unknown] acetaminophen [Tylenol Arthritis] 650 mg PO Q8H PRN 07/24/21 [History Last Taken Unknown] oxycodone-acetaminophen [Percocet] 1 tab PO Q6H PRN 3 Days #12 tab 07/24/21 [Rx Last Taken Unknown] cyclobenzaprine 10 mg PO TID PRN #20 tablet 08/06/21 [Rx Last Taken Unknown] oxycodone-acetaminophen 1 tab PO Q6H PRN PRN 3 Days #15 tablet 08/06/21 [Rx Last Taken Unknown] Allergy/AdvReac Type Severity Reaction Status Date / Time cortisone Allergy Swelling Verified 08/06/21 00:03 latex Allergy Itching Verified 08/06/21 00:03 Penicillins Allergy Hives Verified 08/06/21 00:03 meloxicam AdvReac Vomiting Verified 08/06/21 00:03 Family History Mother Hypertension Hypercholesteremia Diabetes Surgical History History of back surgery History of hysterectomy Social History Smoking Status: Current every day smoker tobacco type: cigarettes Tobacco: How many years used: 38 ROS ROS ED Constitutional Constitutional ED: Reports systems reviewed and no addt'l complaints, except as documented; Denies body ache(s), change in weight or chills Eyes Eyes: Denies acute decrease in peripheral vision, change in vision, double vision or loss of vision ENT ENT ED: Reports none; Denies ear pain, lip swelling, loss taste/smell, neck pain, otalgia or sore throat Cardiovascular Cardiovascular: Reports none; Denies abdominal pain, chest pain with activity, leg edema, lightheadedness, palpitations, rapid heart rate or syncope Respiratory/Chest Respiratory/Chest: Reports none; Denies change in mental status, dry cough, dyspnea, hemoptysis, shortness of breath at rest or shortness of breath with exertion Gastrointestinal Gastrointestinal: Reports none; Denies abdominal pain, change in stool character, diarrhea, hematemesis, hematochezia, melena, rectal bleeding or vomiting Genitourinary Genitourinary ED: Reports none; Denies abdominal discomfort, anuria, dysuria, genital pain or polyuria Musculoskeletal Musculoskeletal: Reports none and back pain; Denies arthralgias, difficulty walk ing, extremity pain, muscle weakness or myalgias Integumentary Reports none; Denies abscess or rash Neurologic Neurologic: Reports none; Denies abnormal gait, confusion, focal weakness, frequent falls, headache(s), loss of vision, numbness, paresthesias, radicular pain, vertigo or weakness Psychiatric Psychiatric: Reports systems reviewed and no addt'l complaints, except as documented and none; Denies behavioral changes, confusion, difficulty concentrating, hallucinations, suicidal ideation, tactile hallucinations or visual hallucinations Endocrine Endocrinology: Denies none, cold intolerance, excessive sweating, fatigue or heat intolerance Hematologic/Lymphatic Hematologic/Lymphatic: Reports none; Denies anemia, easy bleeding or easy bruising Allergic/Immunologic Allergic/Immunologic ED: Denies as per HPI, none, lip swelling, mouth swelling, throat swelling, tongue swelling or hives EXAM Physical Exam Const Vital Signs: 08/06/21 00:02 Temperature 98.1 F Temperature Source Temporal Pulse Rate 102 H Respiratory Rate 16 Blood Pressure 148/93 H Blood Pressure Mean 111 Pulse Ox 99 Oxygen Delivery Method Room Air Positive well nourished and well developed General Appearance ED: well developed and NAD HEENT Reports TM's clear and moist mucous membranes normocephalic and atraumatic; Negative for trauma or tenderness Tympanic Membrane ED: Yes TM's clear Eyes PERRL and EOMs intact bilaterally General Eye ED: Negative for pale conjunctiva or scleral icterus Neck no lymphadenopathy, supple and no JVD General: Negative for tenderness Chest Wall inspection of chest normal and palpation of chest normal Chest: Negative for tenderness Resp normal respiratory effort and clear to auscultation bilaterally Effort and Inspection: Negative for respiratory distress or pain with movement Auscultation: Negative for rhonchi, wheezes or diminished lung sounds Cardio regular rate, regular rhythm, S1 normal heart sound, S2 normal heart sound and no murmurs Peripheral Pulses: pulses 2+ throughout GI normal to inspection, nondistended, normoactive bowel sounds, soft to palpation, non-tender, non-distended and no masses Back/Spine no CVA tenderness and no thoracic nor lumbar tenderness Back/Spine Narrative: Patient was some tenderness over right lumbar paraspinal musculature. She has mild tenderness into the right buttock. He has negative straight leg raises. Deep tendon reflexes are plus 2 out of 4 bilaterally at the patella and Achilles. Patient has normal L5 extension bilaterally. Patient has normal sensation to light touch. Patient has no red flag symptoms for cauda equina. Extremity normal to inspection General Extremety ED: Negative for edema General Extremity: Negative for edema Neuro oriented x3, CN's II-XII intact bilaterally, no sensory deficits noted and gait normal Sensorium / Orientation: awake, alert, oriented to person, oriented to place and oriented to time Motor Exam: strength 5/5 throughout and strength abnormal Psych mental status grossly normal Skin no rashes or lesions noted and no wounds MDM MDM MDM Narrative Medical decision making narrative: Patient was given a shot of morphine as well as Zofran and Norflex. She will be given a prescription for Flexeril and few oxycodone. She is advised to follow-up with pain management and her back surgeon. Discharge Plan Triage Chief Complaint: Back ED Provider: Hawk Wilkins Dx/Rx/DC Orders Clinical Impression: Acute exacerbation of chronic low back pain Instructions: ED Back and Neck Pain, General Prescriptions: New cyclobenzaprine [cyclobenzaprine] 10 MG tablet 10 mg PO TID PRN (Reason: Muscle Spasm) Qty: 20 RF: 0 oxycodone-acetaminophen [oxycodone-acetaminophen] 1 TABLET tablet 1 tab PO Q6H PRN PRN (Reason: Pain) 3 Days Qty: 15 RF: 0 No Action albuterol sulfate 1 INHALER inhaler 1 - 2 puff INHALATION Q4H PRN PRN (Reason: Wheezing) Qty: 1 RF: 0 atorvastatin 20 MG tablet 20 mg PO QHS RF: 0 gabapentin 300 MG capsule 1,200 mg PO DAILY RF: 0 fluoxetine 20 MG capsule 80 mg PO DAILY RF: 0 omeprazole 40 MG capsule,delayed release(DR/EC) 40 mg PO PRN PRN (Reason: Indigestion) RF: 0 acetaminophen [Tylenol Arthritis] 650 mg Tablet Extended Release 650 mg PO Q8H PRN (Reason: Pain) RF: 0 oxycodone-acetaminophen [Percocet] 5-325 mg tablet 1 tab PO Q6H PRN (Reason: pain) 3 Days Qty: 12 RF: 0 Primary Care Provider: Jaylin Diehl NP Referrals: Jaylin Diehl NP, [employer] [Primary Care Provider] - Disposition Disposition: Home, Self Care
[2021-08-06] MEDS: Orphenadrine 60 MG/2 ML Ampul IM (00:27)
[2021-08-06] MEDS: Ondansetron 4 MG/2 ML Vial IM (00:28)
[2021-08-06] MEDS: Morphine 4 MG/ML Syringe IM (00:30)
[2021-08-06 01:12] VITALS: RESP 16
== END 2021-08-06 01:13 | disposition home or self-care (01) ==
PROVIDERS: Emergency Provider Emergency Medicine; PCP Nurse Practitioner Family; Visit Provider Emergency Medicine
DX: M54.50 Low back pain, unspecified (principal); J44.9 Chronic obstructive pulmonary disease, unspecified; E78.00 Pure hypercholesterolemia, unspecified; F17.210 Nicotine dependence, cigarettes, uncomplicated; G89.29 Other chronic pain; F41.9 Anxiety disorder, unspecified; Z86.2 Personal history of diseases of the blood and blood-forming organs and certain disorders involving the immune mechanism; Z87.01 Personal history of pneumonia (recurrent); Z79.899 Other long term (current) drug therapy
CPT/HCPCS: 96372; 99282; J2405

== ENCOUNTER → 2021-09-23 | Outpatient (CLI) | payer MEDICARE, MEDICAID, SELFPAY ==
[2021-09-23 08:31] LABS: Hematocrit 42.2 % (37-47); Hemoglobin 13.5 g/dL (12.0-15.0); Mean Corpuscular Hgb 30.1 pg (27.0-32.0); Mean Corpuscular Volume 94.2 fL (81-99); Mean Platelet Vol. 8.8 fl (6.2-12.0); Platelet Count 433 K/mm3 (150-450); RBC Distribution Width CV 12.6 % (11.6-14.6); Red Blood Count 4.48 M/mm3 (4.2-5.4); White Blood Count 7.6 K/mm3 (4.4-11.0)
[2021-09-23 09:10] LABS: ALB/GLOB Ratio 1.1 RATIO (0.9-2.4); AST(SGOT) 20 U/L (15-37); Alanine Aminotransfer ALT/SGPT 22 U/L (13-56); Albumin, Serum 3.7 g/dL (3.2-5.0); Alkaline Phosphatase 90 U/L (45-117); Anion Gap 5 (5-15); BUN 14 mg/dL (7-18); BUN/Creat Ratio 19.2 RATIO (10-20); Calcium,Total 9.5 mg/dL (8.5-10.1); Chloride 104 mmol/L (98-107); Cholesterol 274 mg/dL (200); Creatinine, Serum 0.73 mg/dL (0.55-1.02); EST Glomerular Filtration Rate 88 mL/min (>60); Est Glom Filt Rate - Afr Amer 106 mL/min (>60); Globulin 3.5 g/dL (2.2-4.2); Glucose 101 mg/dL (74-106); High Density Lipoprotein 75 mg/dL; Potassium 4.2 mmol/L (3.5-5.1); Protein, Total 7.2 g/dL (6.4-8.2); Sodium Level 136 mmol/L (136-145); T4 Free Direct 1.02 ng/dL (0.76-1.46); Thyroid Stim Hormone (TSH) 1.56 uIU/mL (0.358-3.74); Triglycerides 79 mg/dL; Very Low Density Lipoprotein 16 mg/dL (5-40)
== END | disposition home or self-care (01) ==
PROVIDERS: PCP Nurse Practitioner Family; Referring Provider Nurse Practitioner Family; Visit Provider Nurse Practitioner Family
DX: R63.4 Abnormal weight loss (principal); Z20.822 Contact with and (suspected) exposure to COVID-19; Z13.1 Encounter for screening for diabetes mellitus; Z13.6 Encounter for screening for cardiovascular disorders
CPT/HCPCS: 36415; 80053; 80061; 84439; 84443; 85027

== ENCOUNTER 2021-09-27 05:12 | Emergency (ER) | payer MEDICARE, MEDICAID, SELFPAY ==
[2021-09-27 05:13] VITALS: BP 140/98; PULSE 80; RESP 15; TEMP 36.6; O2SAT 99; BMI 18.9
--- NOTE | 2021-09-27 07:14 | EDS_ITS ---
HPI History of Present Illness Chief Complaint: Other, Pain/Inj Informant: patient Narrative Narrative: Patient is a 55-year-old female with history of COPD, hypertension hyperlipidemia, PTSD, chronic back pain as well as neck pain presenting with worsening right-sided neck pain and headache. Patient had injections to her neck on 16 September at [facility] with Dr. Martin, pain management. She states she had temporary relief however since then she has had worsening pain. She states that she is now having a headache. She denies any vision changes or new weakness of her arms. No numbness or tingling in her upper extremities. She does have some chronic tingling of her right thigh and calf. This is unchanged. Patient has been taking Tylenol as well as topical medications with no relief. She called pain management and the earliest they could see her was November 03. Patient states she has tizanidine at home which does not help. She is tried multiple other muscle relaxers with no relief. She is on Lyrica. No other complaints at this time. [facility] Medical History Abnormal LFTs Alcoholism Anxiety COPD (chronic obstructive pulmonary disease) Elevated cholesterol History of pneumonia Thrombocytosis Home Medications albuterol sulfate 90 mcg/actuation aerosol inhaler 1 - 2 puff inhalation Q4H PRN PRN Wheezing ##1 05/02/15 [Rx Last Taken Unknown] atorvastatin 20 mg tablet 20 mg PO QHS 04/03/18 [History Last Taken Unknown] fluoxetine 20 mg capsule 80 mg PO DAILY 04/03/18 [History Last Taken Unknown] gabapentin 300 mg capsule 1,200 mg PO DAILY 04/03/18 [History Last Taken Unknown] omeprazole 40 mg capsule,delayed release 40 mg PO PRN PRN Indigestion 02/26/20 [ History Last Taken Unknown] acetaminophen 650 mg tablet,extended release 650 mg PO Q8H PRN Pain 07/24/21 [History Last Taken Unknown] cyclobenzaprine 10 mg tablet 10 mg PO TID PRN Muscle Spasm #20 TABLETS 08/06/21 [Rx Last Taken Unknown] prednisone 20 mg tablet 40 mg PO DAILY #8 tabs 09/27/21 [Rx Last Taken Unknown] Allergy/AdvReac Type Severity Reaction Status Date / Time cortisone Allergy Swelling Verified 09/27/21 05:17 latex Allergy Itching Verified 09/27/21 05:17 Penicillins Allergy Hives Verified 09/27/21 05:17 meloxicam AdvReac Vomiting Verified 09/27/21 05:17 Family History Mother Hypertension Hypercholesteremia Diabetes Surgical History History of back surgery History of hysterectomy Social History Smoking Status: Current every day smoker tobacco type: cigarettes Tobacco: How many years used: 38 ROS ROS ED Constitutional Constitutional ED: Denies chills or fever(s) Eyes Eyes: Denies blurry vision, change in vision or diplopia ENT ENT ED: Denies ear pain or rhinorrhea Cardiovascular Cardiovascular: Denies chest pain Respiratory/Chest Respiratory/Chest: Denies cough or dyspnea Gastrointestinal Gastrointestinal: Denies abdominal pain, nausea or vomiting Genitourinary Genitourinary ED: Denies dysuria Musculoskeletal Musculoskeletal: Reports arthralgias, back pain and neck pain Integumentary Denies rash Neurologic Neurologic: Reports headache(s) Psychiatric Psychiatric: Denies anxiety or depression EXAM Physical Exam Const Vital Signs: 09/27/21 05:13 09/27/21 05:18 Temperature 97.9 F Temperature Source Temporal Pulse Rate 80 Respiratory Rate 15 Respiratory Effort Non-Labored Respiratory Pattern Normal Blood Pressure 140/98 H Blood Pressure Mean 112 Pulse Ox 99 Oxygen Delivery Method Room Air Positive well nourished and well developed General Appearance ED: well developed and NAD HEENT Reports moist mucous membranes Eyes PERRL and EOMs intact bilaterally Neck no lymphadenopathy, supple and no JVD Neck Narrative: No midline tenderness. Diffuse paraspinal tenderness, right-sided sternocleidomastoid tenderness. No midline tenderness. No nuchal rigidity. Chest Wall inspection of chest normal Resp normal respiratory effort and clear to auscultation bilaterally Cardio regular rate GI normal to inspection, nondistended, normoactive bowel sounds Back/Spine Back/Spine Narrative: Diffuse lower lumbar tenderness. Thoracic Spine / Upper Back: Negative for thoracic spinal tenderness or paraspinal muscle tenderness Lumbar Spine / Lower Back: Negative for lumbar spinal tenderness Extremity normal to inspection Neuro oriented x3, CN's II-XII intact bilaterally and no sensory deficits noted Motor Exam: strength 5/5 throughout; Negative for general weakness Psych mental status grossly normal Skin no rashes or lesions noted and no wounds MDM MDM MDM Narrative Medical decision making narrative: Patient evaluated for neck pain. She is been having neck pain for the past 11 days since neck procedure with pain management. She does not have any focal neurologic deficits. She does have associated headache. Her headache seems to be a tension headache. I suspect her neck pain is more associated with muscle spasm as she does have reproducible tenderness to palpation of the sternocleidomastoid as well as the trapezius muscle. Patient has a care plan in our ER and I do not think opioids are indicated. She is a contraindication to NSAIDs as she recently had some type of GI issue associated with NSAID use and continues to have some epigastric discomfort. In addition she is tried multiple topical medications as well as muscle relaxers with no relief. Spoke with pain management on-call for Dr. Martin. He will try to get the patient seen sooner and recommended steroid course. Patiently placed on a burst of prednisone. She is agreeable with this despite having cortisone listed as an allergy. Patient is encouraged to follow-up with a primary care doctor as well as pain management. I do not think she has an acute spinal cord pressure or injury causing her pain. I think she stable for outpatient follow-up Discharge Plan Triage Chief Complaint: Other, Pain/Inj ED Provider: Taylor Osborn Dx/Rx/DC Orders Clinical Impression: Acute neck pain, Headache Instructions: ED Headache, Tension, ED Neck Pain Prescriptions: New prednisone 20 mg tablet 40 mg PO DAILY Qty: 8 0RF No Action albuterol sulfate 1 INHALER inhaler 1 - 2 puff INHALATION Q4H PRN PRN (Reason: Wheezing) Qty: 1 0RF atorvastatin 20 MG tablet 20 mg PO QHS gabapentin 300 MG capsule 1,200 mg PO DAILY fluoxetine 20 MG capsule 80 mg PO DAILY omeprazole 40 MG capsule,delayed release(DR/EC) 40 mg PO PRN PRN (Reason: Indigestion) acetaminophen [Tylenol Arthritis] 650 mg Tablet Extended Release 650 mg PO Q8H PRN (Reason: Pain) cyclobenzaprine [cyclobenzaprine] 10 MG tablet 10 mg PO TID PRN (Reason: Muscle Spasm) Qty: 20 0RF Primary Care Provider: Jaylin Diehl NP Referrals: Jaylin Diehl NP, [employer] [Primary Care Provider] - Activity Restrictions/Additional Instructions: Please follow-up with pain management soon as possible. He may also try following up with your primary care doctor. Disposition Disposition: Home, Self Care
[2021-09-27] MEDS: predniSONE 20 MG Tablet 60 MG PO (07:21)
[2021-09-27 07:26] VITALS: BP 162/89; PULSE 68; RESP 16; O2SAT 100
== END 2021-09-27 07:26 | disposition home or self-care (01) ==
PROVIDERS: Emergency Provider Emergency Medicine; PCP Nurse Practitioner Family; Visit Provider Emergency Medicine
DX: M54.2 Cervicalgia (principal); J44.9 Chronic obstructive pulmonary disease, unspecified; R51.9 Headache, unspecified; E78.00 Pure hypercholesterolemia, unspecified; F17.210 Nicotine dependence, cigarettes, uncomplicated; I10 Essential (primary) hypertension; F41.9 Anxiety disorder, unspecified; Z79.899 Other long term (current) drug therapy
CPT/HCPCS: 99283

== ENCOUNTER 2021-10-06 01:27 | Emergency (ER) | payer MEDICARE, MEDICAID, SELFPAY ==
[2021-10-06 01:28] VITALS: BP 175/102; PULSE 92; RESP 18; TEMP 36.2; O2SAT 98; BMI 18.9
--- NOTE | 2021-10-06 01:55 | RAD_ITS ---
STUDY: X-RAY CHEST REASON FOR EXAM: Female, 55 years old. Chest pain TECHNIQUE: Portable, upright, AP chest radiograph COMPARISON: 03/04/2020 FINDINGS: The lungs are clear and expanded. There is no demonstrated pleural abnormality. Normal size heart. Normal mediastinum and jennifer. Normal visualized pulmonary arteries. Normal visualized aortic arch and descending thoracic aorta. There is no demonstrated abnormality of the visualized soft tissue structures of the upper abdomen. RAD/Chest 1 View (Portable) IMPRESSION: No acute abnormal cardiopulmonary finding. Electronically Signed: Maverick Paul MD at 2:40 EDT ,
--- NOTE | 2021-10-06 01:55 | EKG12_ITS ---
Test Reason : DYSRHYTHMIA Blood Pressure : / mmHG Vent. Rate : 085 BPM Atrial Rate : 085 BPM P-R Int : 126 ms QRS Dur : 094 ms QT Int : 388 ms P-R-T Axes : 054 -28 061 degrees QTc Int : 461 ms Normal sinus rhythm Normal ECG Confirmed by SHAYAN HOLMAN, RENATE ([id number]), editor greeting card JENNIFER RUVALCABA ([id number]) on 10/06/2021 11:43:36 AM Referred By: SILVINO Confirmed By:RENATE DOWNEY MD
--- NOTE | 2021-10-06 01:58 | EDS_ITS ---
HPI History of Present Illness Chief Complaint: Back Narrative Narrative: Patient presents with multiple somatic complaints. She states that the police recommended that she be evaluated for her palpitations. She has history of chronic back pain and chronic neck pain. She has been on gabapentin for years. She had follow-up with her pain management doctor today after a dose of steroids that was given to her from the emergency department within the last week. She states she is unsure how the police got involved, but she has had a headache since September 17, 2019 days ago, and is still having problems with neck pain and low back pain. She states she does not take any pain pills. She also has past medical history of PTSD. She states that her blood pressure keeps shooting up but she does not take any medication for it. This has been ongoing since April. Additionally, she states that she is having palpitations. Nothing makes them better or worse, and she feels her heart racing. [facility] Medical History Abnormal LFTs Alcoholism Anxiety COPD (chronic obstructive pulmonary disease) Elevated cholesterol History of pneumonia Thrombocytosis Home Medications albuterol sulfate 90 mcg/actuation aerosol inhaler 1 - 2 puff inhalation Q4H PRN PRN Wheezing ##1 05/02/15 [Rx Last Taken Unknown] atorvastatin 20 mg tablet 80 mg PO QHS 04/03/18 [History Last Taken Unknown] fluoxetine 20 mg capsule 80 mg PO DAILY 04/03/18 [History Last Taken Unknown] gabapentin 300 mg capsule 1,200 mg PO DAILY 04/03/18 [History Last Taken Unknown] omeprazole 40 mg capsule,delayed release 40 mg PO PRN PRN Indigestion 02/26/20 [History Last Taken Unknown] acetaminophen 650 mg tablet,extended release 650 mg PO Q8H PRN Pain 07/24/21 [History Last Taken Unknown] metoprolol succinate 25 mg tablet,extended release 24 hr 25 mg PO DAILY #14 tabs 10/06/21 [Rx Last Taken Unknown] Allergy/AdvReac Type Severity Reaction Status Date / Time cortisone Allergy Swelling Verified 10/06/21 01:32 latex Allergy Itching Verified 10/06/21 01:32 Penicillins Allergy Hives Verified 10/06/21 01:32 ibuprofen AdvReac Vomiting Verified 10/06/21 01:33 meloxicam AdvReac Vomiting Verified 10/06/21 01:32 Family History Mother Hypertension Hypercholesteremia Diabetes Surgical History History of back surgery History of hysterectomy Social History Smoking Status: Current some day smoker tobacco type: cigarettes Tobacco: How many years used: 38 ROS ROS ED ROS Narrative Constitutional: No fever, no chills. HEENT: No sore throat. No neck pain. No loss of vision. No rhinorrhea. Cardiovascular: No chest pain. Positive palpitations. No pedal edema. Respiratory: No cough, no shortness of breath. Abdominal: No abdominal pain. No nausea. No vomiting. Genitourinary: No dysuria. No hematuria. Musculoskeletal: No myalgias. No arthralgias. Chronic neck and chronic low back pain. Neurologic: Positive headaches since September 16. No dizziness. No lightheadedness. Skin: No rash. No change in color. Psychiatric: No depression. No anxiety. EXAM Physical Exam Narrative Exam Narrative: Afebrile. Vital signs noted. HEENT: Normocephalic. Atraumatic. PERRL, EOMI. Neck soft and supple. No point tenderness or step off. Cardiovascular: Regular rate and rhythm. No murmurs, rubs, or gallops appreciated. Respiratory: No tachypnea. Lungs clear to auscultation bilaterally. Gastrointestinal: Abdomen soft, nontender, with normoactive bowel sounds. No rebound or guarding. Neurological: Awake. Alert. Nonfocal, nonlateralizing. Skin: No rash. Normal color. No pallor. Musculoskeletal: No pedal edema. Full range of motion extremities. Const Vital Signs: 10/06/21 01:28 10/06/21 02:05 10/06/21 02:46 Temperature 97.2 F L Temperature Source Oral Pulse Rate 92 71 Respiratory Rate 18 18 Blood Pressure 175/102 H 145/92 H Blood Pressure Mean 126 109 Pulse Ox 98 99 Oxygen Delivery Method Room Air Room Air Room Air MDM MDM MDM Narrative Medical decision making narrative: I reviewed her prior records. They have spoken with her pain management doctor Dr. Martin, and she was put on steroids even after her procedure of having injections in her neck for her chronic pain. She states that the registration girl upset her because they stated that he did not have a photo ID of her and they have the wrong insurance. She had elevated blood pressure of 175/102 here. She was given metoprolol tartrate 25 mg orally here. I will work her up for her palpitations with an EKG, CBC, BMP, and high-sensitivity troponins. I do not feel that narcotic pain medication is indicated for her chronic pain. I do feel that her palpitations may be related to anxiety and depression. Her EKG was interpreted by myself. It demonstrates normal sinus rhythm at 85 bpm without ectopy or acute ST changes. No STEMI. WBC count slightly elevated at 14.4 which I think is nonspecific, and recently she was on steroids. Normal hemoglobin of 12.9, hematocrit 39.9 with platelet count elevated 453. Basic metabolic panel is grossly unremarkable. High-sensitivity troponin less than 3, and this is a 0-hour greater than 3-hour troponin. Chest x-ray interpreted by myself shows no acute process. Her blood pressure has come down to 145 systolic. Her diastolic is in the 90s. At this point in time, I do feel she can be discharged safely home with follow-up to her primary care provider. She states she will follow-up tomorrow. I will write her prescription for 14 tablets of metoprolol succinate 25 mg. She is to keep a log of her blood pressures however before starting this medication and can start it should she have consistently elevated blood pressure readings like she states she has been having since April. I feel she be discharged safely home with follow-up. Return instructions to the emergency department were reviewed. Disposition is discharged home in stable condition. Lab Data Attestation: I reviewed the patient's lab results. Labs: Laboratory Results - last 24 hr 10/06/21 10/06/21 02:00 02:00 WBC 14.4 H RBC 4.38 Hgb 12.9 Hct 39.9 MCV 91.1 MCH 29.5 MCHC 32.3 RDW Std Deviation 42.5 RDW Coeff of Gregorio 12.8 Plt Count 453 H MPV 8.3 Immature Gran % (Auto) 1.000 H Neut % (Auto) 66.4 Lymph % (Auto) 20.5 Williamson % (Auto) 10.3 H Eos % (Auto) 1.3 Baso % (Auto) 0.5 Absolute Neuts (auto) 9.6 H Absolute Lymphs (auto) 2.95 Nucleated RBC % 0 Sodium 137 Potassium 3.5 Chloride 104 Carbon Dioxide 27.0 Anion Gap 6 BUN 12 Creatinine 0.70 Estim Creat Clear Calc 73.97 Est GFR (MDRD) Af Amer 112 Est GFR (MDRD) Non-Af 93 BUN/Creatinine Ratio 17.2 Glucose 99 Calcium 9.3 Troponin I High Sens < 3 L Radiography Diagnostic Testing: Clinical Impression(s) from Imaging Studies Chest X-Ray 10/06/21 01:55 IMPRESSION: No acute abnormal cardiopulmonary finding. Electronically Signed: Maverick Paul MD at 2:40 EDT , Discharge Plan Triage Chief Complaint: Back ED Provider: Naayn Urban Dx/Rx/DC Orders Clinical Impression: Elevated blood pressure reading without diagnosis of hypertension, Chronic pain, Palpitations Instructions: ED Chronic Pain, ED Hypertension New Begin Treatment, ED Palpitations Prescriptions: New metoprolol succinate 25 mg tablet extended release 24 hr 25 mg PO DAILY Qty: 14 0RF No Action albuterol sulfate 1 INHALER inhaler 1 - 2 puff INHALATION Q4H PRN PRN (Reason: Wheezing) Qty: 1 0RF atorvastatin 20 MG tablet 80 mg PO QHS gabapentin 300 MG capsule 1,200 mg PO DAILY fluoxetine 20 MG capsule 80 mg PO DAILY omeprazole 40 MG capsule,delayed release(DR/EC) 40 mg PO PRN PRN (Reason: Indigestion) acetaminophen [Tylenol Arthritis] 650 mg Tablet Extended Release 650 mg PO Q8H PRN (Reason: Pain) Primary Care Provider: Jaylin Diehl NP Referrals: Jaylin Diehl NP, [employer] [Primary Care Provider] - 1 Day Activity Restrictions/Additional Instructions: Use your blood pressure monitor and keep a log of your blood pressures for your primary care provider. Only take the metoprolol succinate if you have elevated blood pressure readings consistently. Follow-up with your primary care provider soon as possible, if not tomorrow. Disposition Disposition: Home, Self Care
[2021-10-06] MEDS: Metoprolol Tartrate 25 MG Tablet PO (02:07)
[2021-10-06 02:08] LABS: Absolute Lymphocyte Count 2.95 X10^3/uL (0.83-4.51); Absolute Neutrophil Count 9.6 X10^3/uL (2.0-7.7); Basophil# 0.07 X10^3/uL; Basophil% 0.5 % (0-1); Eosinophil# 0.19 X10^3/uL; Eosinophils% 1.3 % (0-5); Hematocrit 39.9 % (37-47); Hemoglobin 12.9 g/dL (12.0-15.0); Lymphocyte # 2.95 X10^3/ul (0.83-4.51); Lymphocyte % 20.5 % (19-41); Mean Corp Hgb Conc 32.3 g/dL (32-36); Mean Corpuscular Hgb 29.5 pg (27.0-32.0); Mean Corpuscular Volume 91.1 fL (81-99); Mean Platelet Vol. 8.3 fl (6.2-12.0); Monocyte# 1.48 X10^3/uL; Monocyte% 10.3 % (0-10); NRBC Flagged by Analyzer 0 % (0-5); Neutrophil # 9.57 X10^3/uL (2.7-7.7); Neutrophil % 66.4 % (47-70); Platelet Count 453 K/mm3 (150-450); RBC Distribution Width CV 12.8 % (11.6-14.6); RBC Distribution Width SD 42.5 fl (35.1-43.9); Red Blood Count 4.38 M/mm3 (4.2-5.4); White Blood Count 14.4 K/mm3 (4.4-11.0)
[2021-10-06 02:26] LABS: Anion Gap 6 (5-15); BUN 12 mg/dL (7-18); BUN/Creat Ratio 17.2 RATIO (10-20); Calcium,Total 9.3 mg/dL (8.5-10.1); Chloride 104 mmol/L (98-107); EST Glomerular Filtration Rate 93 mL/min (>60); Est Glom Filt Rate - Afr Amer 112 mL/min (>60); Estimated Creatinine Clearance 73.97 ml/min; Glucose 99 mg/dL (74-106); Potassium 3.5 mmol/L (3.5-5.1); Sodium Level 137 mmol/L (136-145); Troponin-I HS (w/2H Reflex) < 3 pg/mL (3.0-54.0)
[2021-10-06 02:46] VITALS: BP 145/92; PULSE 71; RESP 18; O2SAT 99
[2021-10-06 03:08] VITALS: BP 151/90; PULSE 75; RESP 16
[2021-10-06 04:06] LABS: Reflex Troponin-HS? (from REC) Y
== END 2021-10-06 03:09 | disposition home or self-care (01) ==
PROVIDERS: Emergency Provider Emergency Medicine; PCP Nurse Practitioner Family; Visit Provider Emergency Medicine
DX: R03.0 Elevated blood-pressure reading, without diagnosis of hypertension (principal); J44.9 Chronic obstructive pulmonary disease, unspecified; G89.29 Other chronic pain; R00.2 Palpitations; M54.50 Low back pain, unspecified; F17.210 Nicotine dependence, cigarettes, uncomplicated; E78.00 Pure hypercholesterolemia, unspecified; F41.9 Anxiety disorder, unspecified; Z79.899 Other long term (current) drug therapy; M54.2 Cervicalgia; F43.10 Post-traumatic stress disorder, unspecified
CPT/HCPCS: 71045; 80048; 84484; 85025; 93005; 99285

== ENCOUNTER → 2021-10-27 | Outpatient (CLI) | payer MEDICARE, MEDICAID, SELFPAY ==
[2021-10-27 12:32] LABS: Anion Gap 6 (5-15); BUN 11 mg/dL (7-18); BUN/Creat Ratio 16.2 RATIO (10-20); Calcium,Total 9.7 mg/dL (8.5-10.1); Chloride 104 mmol/L (98-107); Creatinine, Serum 0.68 mg/dL (0.55-1.02); EST Glomerular Filtration Rate 95 mL/min (>60); Est Glom Filt Rate - Afr Amer 115 mL/min (>60); Glucose 97 mg/dL (74-106); Magnesium 2.2 mg/dL (1.6-2.6); Potassium 3.9 mmol/L (3.5-5.1); Rheumatoid Factor < 10.0 IU/mL (<15); Sodium Level 138 mmol/L (136-145)
[2021-10-28 13:19] LABS: ANTINUCLEAR ANTIBODIES DIRECT Negative (Negative)
== END | disposition home or self-care (01) ==
LOC: LAB 11:14
PROVIDERS: PCP Nurse Practitioner Family; Visit Provider Nurse Practitioner Family
DX: R25.2 Cramp and spasm (principal); M06.9 Rheumatoid arthritis, unspecified; M25.50 Pain in unspecified joint; G89.29 Other chronic pain
CPT/HCPCS: 36415; 80048; 83735; 86038; 86431

== ENCOUNTER → 2021-11-06 | Outpatient (CLI) | payer MEDICARE, MEDICAID, SELFPAY ==
--- NOTE | 2021-11-06 08:06 | BI_ITS ---
MAMMOGRAPHY - BILATERAL SCREENING REASON FOR EXAM: Female, 55 years old. Routine annual screening examination. PERTINENT HISTORY: Non-contributory. TECHNIQUE: Digital bilateral breast kyaw (3D mammographic acquisition) in the CC and MLO projections. 2-D mediolateral oblique (MLO) and craniocaudad (CC) views of both breasts were obtained. CAD: Full Field Digital Mammography with Computer Added Detection was performed. COMPARISON: Comparison is made with prior study 11/09/2019. FINDINGS: Breast Composition: The breasts are heterogeneously dense, which may obscure small masses. There are no dominant masses or suspicious calcifications. No other significant abnormalities are identified. There has been no significant change since the prior study. BI/SCRN MAMM (CAD)W/KYAW BILAT IMPRESSION: Stable bilateral screening mammogram. Yearly follow-up mammogram recommended. (A) ASSESSMENT CATEGORY: BIRADS Category 1: Negative. A letter regarding these results will be sent to the patient by the facility within 30 days. Approximately 10% of breast cancers are not detected by mammography. A normal mammogram should not delay biopsy of a clinically suspicious abnormality. [id number] Electronically Signed: Geremias Hernandez MD at 9:11 EDT ,
== END | disposition home or self-care (01) ==
PROVIDERS: PCP Nurse Practitioner Family; Visit Provider Nurse Practitioner Family
DX: Z12.31 Encounter for screening mammogram for malignant neoplasm of breast (principal)
CPT/HCPCS: 77063; 77067

== ENCOUNTER 2021-12-03 02:24 | Emergency (ER) | payer MEDICARE, MEDICAID, SELFPAY ==
[2021-12-03 02:25] VITALS: BP 168/104; PULSE 88; RESP 17; TEMP 36.2; O2SAT 100; BMI 18.9
--- NOTE | 2021-12-03 02:41 | ED.VIS.BACK ---
HPI History of Present Illness Chief Complaint: Back Detail of Chief Complaint: Back and neck pain Informant: patient Narrative Narrative: Patient with back and neck pain that is exacerbated over the last 2 days. Patient has history of chronic neck and back pain. Patient used to see pain management. She has had prior injections in her neck. Patient also has had lumbar surgery in 2019 with discectomy and laminectomy she thinks at L5-S1. Patient states that she did some laundry a couple of days ago and it flared up her back. She had no trauma otherwise. She complains of some pain radiating down her right leg to about the knee. She denies loss of bowel or bladder function. She denies weakness in extremities. Patient took a dose of ibuprofen and it did not help her pain actually made her throw up. Patient tells me she cannot take ibuprofen. She has Flexeril at home but is not helping her pain. Prior similar symptoms: Yes PFSH [facility] Medical History Abnormal LFTs Alcoholism Anxiety COPD (chronic obstructive pulmonary disease) Elevated cholesterol History of pneumonia Thrombocytosis Home Medications albuterol sulfate 90 mcg/actuation aerosol inhaler 1 - 2 puff inhalation Q4H PRN PRN Wheezing ##1 05/02/15 [Rx Last Taken Unknown] atorvastatin 20 mg tablet 80 mg PO QHS 04/03/18 [History Last Taken Unknown] fluoxetine 20 mg capsule 80 mg PO DAILY 04/03/18 [History Last Taken Unknown] gabapentin 300 mg capsule 1,200 mg PO DAILY 04/03/18 [History Last Taken Unknown] omeprazole 40 mg capsule,delayed release 40 mg PO PRN PRN Indigestion 02/26/20 [History Last Taken Unknown] acetaminophen 650 mg tablet,extended release 650 mg PO Q8H PRN Pain 07/24/21 [History Last Taken Unknown] metoprolol succinate 25 mg tablet,extended release 24 hr 25 mg PO DAILY #14 tabs 10/06/21 [Rx Last Taken Unknown] hydrocodone-acetaminophen 5-325mg 5mg-325mg 1 tab PO Q4H PRN PRN Pain 2 days #10 TABLETS 12/03/21 [Rx Last Taken Unknown] Allergy/AdvReac Type Severity Reaction Status Date / Time cortisone Allergy Swelling Verified 12/03/21 02:29 latex Allergy Itching Verified 12/03/21 02:29 Penicillins Allergy Hives Verified 12/03/21 02:29 ibuprofen AdvReac Vomiting Verified 12/03/21 02:29 meloxicam AdvReac Vomiting Verified 12/03/21 02:29 Family History Mother Hypertension Hypercholesteremia Diabetes Surgical History History of back surgery History of hysterectomy Social History Smoking Status: Current some day smoker tobacco type: cigarettes Tobacco: How many years used: 38 ROS ROS ED Review of Systems ROS Unobtainable: other Constitutional Constitutional ED: Reports lethargy; Denies chills, fever(s), sweats or weight loss Eyes Eyes: Denies blurry vision, change in vision or diplopia ENT ENT ED: Denies rhinorrhea or sore throat Cardiovascular Cardiovascular: Reports racing heartbeat; Denies chest pain or orthopnea Respiratory/Chest Respiratory/Chest: Denies cough, dyspnea, dyspnea on exertion, orthopnea or sputum Gastrointestinal Gastrointestinal: Denies abdominal pain, diarrhea, nausea or vomiting Genitourinary Genitourinary ED: Denies dysuria, hematuria or urinary frequency Musculoskeletal Musculoskeletal: Reports back pain and neck pain; Denies arthralgias or myalgias Integumentary Denies abscess, Abrasions or rash Neurologic Neurologic: Denies headache(s) or weakness Psychiatric Psychiatric: Denies anxiety, depression or suicidal thoughts Endocrine Endocrinology: Denies polydipsia, polyphagia or polyuria Hematologic/Lymphatic Hematologic/Lymphatic: Denies easy bleeding, easy bruising or lymphadenopathy Allergic/Immunologic Allergic/Immunologic ED: Denies mouth swelling, tongue swelling or urticaria EXAM Physical Exam Const Vital Signs: 12/03/21 02:25 Temperature 97.2 F L Temperature Source Temporal Pulse Rate 88 Respiratory Rate 17 Blood Pressure 168/104 H Blood Pressure Mean 125 Pulse Ox 100 Oxygen Delivery Method Room Air Positive well nourished and well developed General Appearance ED: well developed and NAD HEENT Reports TM's clear and moist mucous membranes normocephalic and atraumatic; Negative for trauma or tenderness Tympanic Membrane ED: Yes TM's clear Eyes PERRL and EOMs intact bilaterally General Eye ED: Negative for pale conjunctiva or scleral icterus Neck no lymphadenopathy, supple and no JVD Neck Narrative: I cannot reproduce her pain with palpation of her neck. She does have pain with turning her head to the left. Normal strength in the upper extremities with normal deep tendon reflexes. General: Negative for tenderness Chest Wall inspection of chest normal and palpation of chest normal Chest: Negative for tenderness Resp normal respiratory effort and clear to auscultation bilaterally Effort and Inspection: Negative for respiratory distress or pain with movement Auscultation: Negative for rhonchi, wheezes or diminished lung sounds Cardio regular rate, regular rhythm, S1 normal heart sound, S2 normal heart sound and no murmurs Peripheral Pulses: pulses 2+ throughout GI normal to inspection, nondistended, normoactive bowel sounds, soft to palpation, non-tender, non-distended and no masses Back/Spine no CVA tenderness Back/Spine Narrative: Patient with some tenderness palpation over the lower lumbar spine and lumbar paraspinal musculature bilaterally. He has negative straight leg raises. Deep tendon reflexes are plus 2 out of 4 bilaterally at the patella and Achilles. Patient has normal 5 extension. Patient has normal sensation to light touch. Extremity normal to inspection General Extremety ED: Negative for edema General Extremity: Negative for edema Neuro oriented x3, CN's II-XII intact bilaterally, no sensory deficits noted and gait normal Sensorium / Orientation: awake, alert, oriented to person, oriented to place and oriented to time Motor Exam: strength 5/5 throughout and strength abnormal Psych mental status grossly normal Skin no rashes or lesions noted and no wounds MDM MDM MDM Narrative Medical decision making narrative: Patient will be given a dose of Dilaudid IM. She will be given a prescription for few [place] for pain. She is to keep her appointment with physician in 4 days. I do not feel any imaging is indicated. Patient has no red flag symptoms of cauda equina or acute neurologic insult. Discharge Plan Triage Chief Complaint: Back ED Provider: Hawk Wilkins Dx/Rx/DC Orders Clinical Impression: Back pain, Neck pain Instructions: ED Back Pain (Acute or Chronic), ED Neck Pain Prescriptions: New hydrocodone-acetaminophen [hydrocodone-acetaminophen] 5-325 mg tablet 1 tab PO Q4H PRN PRN (Reason: Pain) 2 Days Qty: 10 0RF No Action albuterol sulfate 1 INHALER inhaler 1 - 2 puff INHALATION Q4H PRN PRN (Reason: Wheezing) Qty: 1 0RF atorvastatin 20 MG tablet 80 mg PO QHS gabapentin 300 MG capsule 1,200 mg PO DAILY fluoxetine 20 MG capsule 80 mg PO DAILY omeprazole 40 MG capsule,delayed release(DR/EC) 40 mg PO PRN PRN (Reason: Indigestion) acetaminophen [Tylenol Arthritis] 650 mg Tablet Extended Release 650 mg PO Q8H PRN (Reason: Pain) metoprolol succinate 25 mg tablet extended release 24 hr 25 mg PO DAILY Qty: 14 0RF Primary Care Provider: Jaylin Diehl NP Referrals: Jaylin Diehl NP, [employer] [Primary Care Provider] - Disposition Disposition: Home, Self Care
[2021-12-03] MEDS: HYDROmorphone 1 MG/ML Syringe IM (03:02)
[2021-12-03] MEDS: Ondansetron 4 MG/2 ML Vial IM (03:02)
[2021-12-03] MEDS: HYDROcodone Bitartrate/Apap 5/325 Tablet PO (03:05)
== END 2021-12-03 03:07 | disposition home or self-care (01) ==
LOC: ED 02:55
PROVIDERS: Emergency Provider Emergency Medicine; PCP Internal Medicine; Visit Provider Emergency Medicine
DX: M54.2 Cervicalgia (principal); J44.9 Chronic obstructive pulmonary disease, unspecified; E78.00 Pure hypercholesterolemia, unspecified; F17.210 Nicotine dependence, cigarettes, uncomplicated; Z79.899 Other long term (current) drug therapy; G89.29 Other chronic pain; M54.9 Dorsalgia, unspecified
CPT/HCPCS: 96372; 99283; J2405

== ENCOUNTER → 2022-01-08 | Outpatient (CLI) | payer MEDICARE, MEDICAID, SELFPAY ==
--- NOTE | 2022-01-08 17:04 | MRI_ITS ---
STUDY: MRI LUMBAR SPINE WITH AND WITHOUT CONTRAST REASON FOR EXAM: Female, 56 years old. pain TECHNIQUE: Standardized fat and water weighted pulse sequences were obtained in the sagittal and axial planes. IV YES Clariscan was administered for the contrast portion of the examination. COMPARISON: None FINDINGS: T12-L1: Normal endplates. Normal disc height, hydration and morphology. Normal bilateral facet joints. Normal central canal and bilateral lateral recesses. Normal bilateral intervertebral neural foramina. Normal lumbar lordosis. There is no substantial scoliosis. Normal conus medullaris that terminates at T12-L1 L1-2: Normal endplates. Normal disc height, hydration and morphology. Normal bilateral facet joints. Normal central canal and bilateral lateral recesses. Normal bilateral intervertebral neural foramina. L2-3: Normal endplates. Normal disc height, hydration and morphology. Normal bilateral facet joints. Normal central canal and bilateral lateral recesses. Normal bilateral intervertebral neural foramina. L3-4: Normal endplates. Normal disc height desiccation and minor annular bulge.. Normal bilateral facet joints. Normal central canal and bilateral lateral recesses. Minor bilateral neuroforaminal encroachment.. L4-5: Normal endplates. Normal disc height, desiccation mild annular bulge. Mild facet arthropathy and thickening of ligamenta flava.. Normal central canal and bilateral lateral recesses. Moderate bilateral neuroforaminal encroachment L5-S1: Postop change status post right laminectomy. Normal endplates. Normal disc height, desiccation and minor annular bulge. There is enhancing epidural fibrosis within the right lateral recess and retraction of the descending right S1 nerve root posteriorly likely due to postsurgical scarring... Bilateral facet arthropathy.. Normal central canal and bilateral lateral recesses. Mild bilateral neuroforaminal encroachment.. Normal visualized sacral ala. Large TARLOV cyst noted within the upper sacral canal of uncertain significance Normal visualized paraspinous soft tissue structures. MRI/Spine Lumbar W/WO Contrast IMPRESSION: No evidence for acute fracture or other significant bony pathology.. Mild to moderate spinal stenosis L3-4 and more pronounced at L4-5 secondary to bulging annuli and facet arthropathy. Status post right laminotomy at L5-S1. There is no evidence for recurrent disc protrusion. However there is retraction of the descending right S1 nerve root due to postsurgical scarring. Electronically Signed: Domingo Moura MD at 18:58 EDT ,
[2022-01-08 17:45] LABS: CREATININE FINGERSTICK < 0.9 mg/dL (0.55-1.02); EGFR FINGERSTICK > 60.0000 mL/min (>60)
== END | disposition home or self-care (01) ==
PROVIDERS: PCP Internal Medicine; Visit Provider Orthopaedic Surgery
DX: M54.50 Low back pain, unspecified (principal)
CPT/HCPCS: 72158; A9575

== ENCOUNTER 2022-03-14 22:07 | Emergency (ER) | payer MEDICARE, MEDICAID, SELFPAY ==
[2022-03-14 22:07] VITALS: BP 111/81; PULSE 95; RESP 15; TEMP 36.8; O2SAT 97; BMI 19.1
--- NOTE | 2022-03-15 00:26 | EX.ED.DYSGE1 ---
HPI History of Present Illness Chief Complaint: Other, Pain/Inj Informant: patient Onset/Context/Timing Onset: Yesterday Context: Sudden Onset Timing: Continuous Quality: pain Location: throughout neck Current Severity: Severe Maximum Severity: Severe Worsened by: movement Relieved by: remaining still Associated Symptoms Associated Symptoms: none Narrative Narrative: Patient states she has chronic neck pain and not uncommonly gets a flareup when she does certain movements, which is what happened yesterday when she was lifting a heavy dish of food placing it into the oven bent over. She states the pain started suddenly, at first it was hard to move because of the pain, now she can move but the pain is persistent. She tried taking ibuprofen but vomited. Also today she has had some brief intermittent discomfort in her left chest that hurts more to move, no dyspnea, no radiation, started after she was picking up leaves with her family. [facility] Medical History Abnormal LFTs Alcoholism Anxiety COPD (chronic obstructive pulmonary disease) Elevated cholesterol History of pneumonia Thrombocytosis Home Medications albuterol sulfate 90 mcg/actuation aerosol inhaler 1 - 2 puff inhalation Q4H PRN PRN Wheezing ##1 05/02/15 [Rx Last Taken Unknown] atorvastatin 20 mg tablet 80 mg PO QHS 04/03/18 [History Last Taken Unknown] fluoxetine 20 mg capsule 80 mg PO DAILY 04/03/18 [History Last Taken Unknown] gabapentin 300 mg capsule 1,200 mg PO DAILY 04/03/18 [History Last Taken Unknown] omeprazole 40 mg capsule,delayed release 40 mg PO PRN PRN Indigestion 02/26/20 [History Last Taken Unknown] acetaminophen 650 mg tablet,extended release 650 mg PO Q8H PRN Pain 07/24/21 [History Last Taken Unknown] metoprolol succinate 25 mg tablet,extended release 24 hr 25 mg PO DAILY #14 tabs 10/06/21 [Rx Last Taken Unknown] hydrocodone-acetaminophen 5-325mg 5mg-325mg 1 tab PO Q4H PRN PRN Pain 2 days #10 TABLETS 12/03/21 [Rx Last Taken Unknown] Allergy/AdvReac Type Severity Reaction Status Date / Time cortisone Allergy Swelling Verified 03/14/22 22:13 latex Allergy Itching Verified 03/14/22 22:13 Penicillins Allergy Hives Verified 03/14/22 22:13 ibuprofen AdvReac Vomiting Verified 03/14/22 22:13 meloxicam AdvReac Vomiting Verified 01/13/22 13:05 Family History Mother Hypertension Hypercholesteremia Diabetes Other Arthritis Cancer Surgical History History of back surgery History of hysterectomy Social History Smoking Status: Current some day smoker tobacco type: cigarettes Tobacco: How many years used: 38 ROS ROS ED Constitutional Constitutional ED: Denies chills or fever(s) Cardiovascular Cardiovascular: Reports chest pain; Denies racing heartbeat Respiratory/Chest Respiratory/Chest: Denies cough or dyspnea Gastrointestinal Gastrointestinal: Denies nausea or vomiting Genitourinary Genitourinary ED: Denies dysuria or hematuria Musculoskeletal Musculoskeletal: Reports back pain, neck pain and other Details: Coccygeal pain chronic unchanged Integumentary Denies abscess or rash Neurologic Neurologic: Denies headache(s), paresthesias or weakness EXAM Physical Exam Const Vital Signs: 03/14/22 22:07 Temperature 98.2 F Temperature Source Temporal Pulse Rate 95 Respiratory Rate 15 Blood Pressure 111/81 H Blood Pressure Mean 91 Pulse Ox 97 Oxygen Delivery Method Room Air Positive well nourished and well developed Constitutional Narrative: Sitting slightly reclined in bed with knees up, with pressure apparently directly on her sacrum/tailbone without any apparent discomfort General Appearance ED: well developed and NAD HEENT Reports moist mucous membranes Negative for trauma Eyes PERRL and EOMs intact bilaterally Neck no lymphadenopathy and supple Neck Narrative: Full range of motion. No midline bony tenderness or step-off. Resp normal respiratory effort and clear to auscultation bilaterally Effort and Inspection: able to speak in complete sentences Cardio regular rate, regular rhythm and no murmurs Rate: Negative for tachycardic Neuro oriented x3, CN's II-XII intact bilaterally and no sensory deficits noted Sensorium / Orientation: alert Motor Exam: strength 5/5 throughout Psych mental status grossly normal Skin no rashes or lesions noted and no wounds MDM MDM MDM Narrative Medical decision making narrative: Patient apparently having an acute exacerbation of her chronic pain in her neck. I offered to treat that for her tonight, and she is comfortable with that plan, medications ordered. She appears well objectively, and is moving her head in all directions and neurologically intact in both upper extremities without any apparent issue. Discharge Plan Triage Chief Complaint: Other, Pain/Inj ED Provider: Yefri Rodriguez Dx/Rx/DC Orders Clinical Impression: Acute cervical myofascial strain Instructions: ED Neck Sprain or Strain Prescriptions: No Action albuterol sulfate 1 INHALER inhaler 1 - 2 puff INHALATION Q4H PRN PRN (Reason: Wheezing) Qty: 1 0RF atorvastatin 20 MG tablet 80 mg PO QHS gabapentin 300 MG capsule 1,200 mg PO DAILY fluoxetine 20 MG capsule 80 mg PO DAILY omeprazole 40 MG capsule,delayed release(DR/EC) 40 mg PO PRN PRN (Reason: Indigestion) acetaminophen [Tylenol Arthritis] 650 mg Tablet Extended Release 650 mg PO Q8H PRN (Reason: Pain) metoprolol succinate 25 mg tablet extended release 24 hr 25 mg PO DAILY Qty: 14 0RF hydrocodone-acetaminophen [hydrocodone-acetaminophen] 5-325 mg tablet 1 tab PO Q4H PRN PRN (Reason: Pain) 2 Days Qty: 10 0RF Primary Care Provider: Paolo Girard Referrals: Paolo Girard MD [Primary Care Provider] - 1 Week if not improving Disposition Disposition: Home, Self Care
[2022-03-15] MEDS: cycloBENZAPRine HCl 10 MG Tablet PO (00:29)
[2022-03-15] MEDS: Ondansetron ODT 4 MG Tablet 8 MG PO (00:29)
[2022-03-15] MEDS: Ketorolac 30 MG/ML Syringe IM (00:30)
[2022-03-15] MEDS: Morphine 4 MG/ML Syringe IM (00:30)
== END 2022-03-15 00:43 | disposition home or self-care (01) ==
PROVIDERS: Emergency Provider Emergency Medicine; PCP Internal Medicine; Visit Provider Emergency Medicine
DX: S16.1XXA Strain of muscle, fascia and tendon at neck level, initial encounter (principal); F17.210 Nicotine dependence, cigarettes, uncomplicated; G89.29 Other chronic pain; X58.XXXA Exposure to other specified factors, initial encounter
CPT/HCPCS: 96372; 99283

== ENCOUNTER 2022-07-04 01:54 | Emergency (ER) | payer MEDICARE, MEDICAID, SELFPAY ==
[2022-07-04 01:55] VITALS: BP 163/111; PULSE 93; RESP 16; TEMP 36.1; O2SAT 97; BMI 18.1
--- NOTE | 2022-07-04 02:27 | ED.VIS.BACK ---
HPI History of Present Illness Chief Complaint: Back Informant: patient Narrative Narrative: Worsening right lower back pain rating to her gluteals for the past few days. States outdoors gardening with the nice weather with symptoms started also complains of neck pain. No loss of bowel or bladder control. History of laminotomy discectomy L5-S1 on the right [place] [address] Spicer. She reports she has seen Dr. Wharton in the past for injections, she stopped seeing him in tried going to another pain doctor Dr. Martin, had 1 treatment and stopped going. Currently does not follow pain management. She is on gabapentin for reported history treatment for depression after losing her son 16 years ago. She has only been using Tylenol arthritis. This is not helping. She has been on hydrocodone in the past. Prior similar symptoms: Yes and With Prior Back Pain [facility] Medical History Abnormal LFTs Alcoholism Anxiety COPD (chronic obstructive pulmonary disease) Elevated cholesterol History of pneumonia Thrombocytosis Home Medications albuterol sulfate 90 mcg/actuation aerosol inhaler 1 - 2 puff inhalation Q4H PRN PRN Wheezing ##1 05/02/15 [Rx Last Taken Unknown] atorvastatin 20 mg tablet 20 mg PO QHS 04/03/18 [History Last Taken Unknown] fluoxetine 20 mg capsule 80 mg PO DAILY 04/03/18 [History Last Taken Unknown] gabapentin 300 mg capsule 600 mg PO TID 04/03/18 [History Last Taken Unknown] omeprazole 40 mg capsule,delayed release 40 mg PO PRN PRN Indigestion 02/26/20 [History Last Taken Unknown] acetaminophen 650 mg tablet,extended release 650 mg PO Q8H PRN Pain 07/24/21 [History Last Taken Unknown] metoprolol succinate 25 mg tablet,extended release 24 hr 25 mg PO DAILY #14 tabs 10/06/21 [Rx Last Taken Unknown] hydrocodone-acetaminophen 5-325mg 5mg-325mg 1 tab PO Q6H PRN PRN Pain 3 days #12 TABLETS 07/04/22 [Rx Last Taken Unknown] Allergy/AdvReac Type Severity Reaction Status Date / Time cortisone Allergy Swelling Verified 03/14/22 22:13 latex Allergy Itching Verified 03/14/22 22:13 Penicillins Allergy Hives Verified 03/14/22 22:13 ibuprofen AdvReac Vomiting Verified 03/14/22 22:13 meloxicam AdvReac Vomiting Verified 01/13/22 13:05 Family History Mother Hypertension Hypercholesteremia Diabetes Other Arthritis Cancer Surgical History History of back surgery History of hysterectomy Social History Smoking Status: Light Smoker (<10/day) Tobacco: How many years used: 38 ROS ROS ED Constitutional Constitutional ED: Denies chills, fever(s) or sweats Eyes Eyes: Denies change in vision ENT ENT ED: Denies dysphagia or sore throat Cardiovascular Cardiovascular: Denies chest pain, leg edema, palpitations or racing heartbeat Respiratory/Chest Respiratory/Chest: Denies cough, dyspnea or dyspnea on exertion Gastrointestinal Gastrointestinal: Denies abdominal pain, diarrhea, nausea or vomiting Genitourinary Genitourinary ED: Denies dysuria, hematuria or urinary frequency Musculoskeletal Musculoskeletal: Reports back pain and neck pain; Denies extremity pain Integumentary Denies rash or wounds Neurologic Neurologic: Denies headache(s), paresthesias or weakness EXAM Physical Exam Const Vital Signs: 07/04/22 01:55 Temperature 97 F L Temperature Source Oral Pulse Rate 93 Respiratory Rate 16 Blood Pressure 163/111 H Blood Pressure Mean 128 Pulse Ox 97 Oxygen Delivery Method Room Air Positive well nourished and well developed General Appearance ED: well developed and NAD HEENT Reports moist mucous membranes normocephalic and atraumatic Eyes PERRL, EOMs intact bilaterally and conjunctivae normal General Eye ED: Yes normal appearance of both eyes Neck no lymphadenopathy and supple Neck Narrative: No midline tenderness mild paracervical tenderness. General: Negative for tenderness Chest Wall Chest: Negative for tenderness Resp normal respiratory effort and normal air movement Effort and Inspection: symmetric chest movement; Negative for respiratory distress Cardio regular rate, regular rhythm and no murmurs Peripheral Pulses: pulses 2+ throughout GI normal to inspection, nondistended, normoactive bowel sounds and non-tender Palpation: Negative for guarding or rebound tenderness present Back/Spine no CVA tenderness Back/Spine Narrative: No midline tenderness of the back, pain at the SI upper area on the right side reproducible. Straight leg test was negative. 3+ patellar reflex bilaterally. Extremity normal to inspection General Extremety ED: Negative for edema or tenderness General Extremity: Negative for edema Neuro oriented x3 and no sensory deficits noted Sensorium / Orientation: awake and alert Deep Tendon Reflexes: Rt Patellar (L4): 3+ and Lt Patellar (L4): 3+ Deep Tendon Reflexes Back: Rt Patellar (L4): 3+ and Lt Patellar (L4): 3+ Skin no rashes or lesions noted and no wounds MDM MDM MDM Narrative Medical decision making narrative: Interventions / MDM: Differential diagnosis: Lumbar strain, sciatica, cervical strain Diagnosis considered but do not suspect: No cauda equina symptoms My EKG interpretation: N/A Imaging independently reviewed and interpreted by myself: N/A External documents reviewed: N/A Test considered but not ordered:N/A ED course: Patient recurrent similar back pains right SI region. Also has cervical muscle strain. Currently does not follow pain management OAR[facility] report was checked no overlaps or concerns. She has had relief with hydrocodone in the past we will give her dose here along with short prescription. Discussed refills by her PCP. She is also referred back to her pain management doctor reevaluation continue treatment or alternative therapies. All questions were answered. Re-evaluation: stable Disposition discussed with patient/family/significant other: Patient Case discussed with consulting clinician: N/A Discharge Plan Triage Chief Complaint: Back ED Provider: Bear Bullard Dx/Rx/DC Orders Clinical Impression: Lumbar spine strain, Cervical strain Instructions: ED Back Sprain/Strain, ED Neck Sprain or Strain Prescriptions: New hydrocodone-acetaminophen [hydrocodone-acetaminophen] 5-325 mg tablet 1 tab PO Q6H PRN PRN (Reason: Pain) 3 Days Qty: 12 0RF No Action albuterol sulfate 1 INHALER inhaler 1 - 2 puff INHALATION Q4H PRN PRN (Reason: Wheezing) Qty: 1 0RF atorvastatin 20 MG tablet 20 mg PO QHS gabapentin 300 MG capsule 600 mg PO TID fluoxetine 20 MG capsule 80 mg PO DAILY omeprazole 40 MG capsule,delayed release(DR/EC) 40 mg PO PRN PRN (Reason: Indigestion) acetaminophen [Tylenol Arthritis] 650 mg Tablet Extended Release 650 mg PO Q8H PRN (Reason: Pain) metoprolol succinate 25 mg tablet extended release 24 hr 25 mg PO DAILY Qty: 14 0RF Primary Care Provider: Paolo Girard Referrals: Donn Wharton MD [Med Staff - Active Staff] - 3-5 Days Paolo Girard MD [Primary Care Provider] - 3-5 Days Disposition Disposition: Home, Self Care Discharge Date/Time: 07/04/22 02:32
[2022-07-04] MEDS: HYDROcodone Bitartrate/Apap 5/325 Tablet PO (02:29)
== END 2022-07-04 02:32 | disposition home or self-care (01) ==
PROVIDERS: Emergency Provider Emergency Medicine; PCP Internal Medicine; Visit Provider Emergency Medicine
DX: S39.012A Strain of muscle, fascia and tendon of lower back, initial encounter (principal); J44.9 Chronic obstructive pulmonary disease, unspecified; S16.1XXA Strain of muscle, fascia and tendon at neck level, initial encounter; F17.200 Nicotine dependence, unspecified, uncomplicated; E78.00 Pure hypercholesterolemia, unspecified; F32.A Depression, unspecified; Z79.899 Other long term (current) drug therapy; X58.XXXA Exposure to other specified factors, initial encounter; Y93.H2 Activity, gardening and landscaping; Y92.89 Other specified places as the place of occurrence of the external cause
CPT/HCPCS: 99283

== ENCOUNTER 2022-11-10 20:37 | Emergency (ER) | payer MEDICARE, MEDICAID, SELFPAY ==
[2022-11-10 20:39] VITALS: BP 168/93; PULSE 103; RESP 19; TEMP 36.1; O2SAT 97; BMI 17.4
--- NOTE | 2022-11-10 21:34 | EDS_ITS ---
HPI History of Present Illness Chief Complaint: Anxiety Narrative Narrative: 56-year-old female past medical history of chronic neck and back pain. She states she has had sacral pain for years for which she uses ice packs and takes [id number] medications. This is her chronic pain. She presents via EMS because she states she is stressed out over her pain. She reportedly wanted to talk to a healthcare social worker when she arrived via EMS. She states that she was in the emergency department yesterday with her significant other where she sat in a hard chair for hours without a cushion. She knew that this would cause her problems with her sacrum and low back, but she did because of wanting to be with her significant other. She presents today needing something for pain to help her. She no longer sees pain management. She states that she wants that to go away so that she can perform some of her activities. She denies any fevers or chills, no loss of bowel or bladder, no other symptoms. This is exacerbation of her same chronic pain that she has had in the past. [facility] Medical History Abnormal LFTs Alcoholism Anxiety COPD (chronic obstructive pulmonary disease) Elevated cholesterol History of pneumonia Thrombocytosis Home Medications atorvastatin 20 mg tablet 20 mg PO QHS 04/03/18 [History Last Taken Unknown] fluoxetine 20 mg capsule 80 mg PO DAILY 04/03/18 [History Last Taken Unknown] gabapentin 300 mg capsule 600 mg PO TID 04/03/18 [History Last Taken Unknown] omeprazole 40 mg capsule,delayed release 40 mg PO PRN PRN Indigestion 02/26/20 [History Last Taken Unknown] Allergy/AdvReac Type Severity Reaction Status Date / Time cortisone Allergy Swelling Verified 03/14/22 22:13 latex Allergy Itching Verified 03/14/22 22:13 Penicillins Allergy Hives Verified 03/14/22 22:13 ibuprofen AdvReac Vomiting Verified 03/14/22 22:13 meloxicam AdvReac Vomiting Verified 01/13/22 13:05 Family History Mother Hypertension Hypercholesteremia Diabetes Other Arthritis Cancer Surgical History History of back surgery History of hysterectomy Social History Smoking Status: Current every day smoker tobacco type: cigarettes Tobacco: How many years used: 38 ROS ROS ED ROS Narrative Constitutional: No fever, no chills. HEENT: No sore throat. No neck pain. No loss of vision. No rhinorrhea. Cardiovascular: No chest pain. No palpitations. No pedal edema. Respiratory: No cough, no shortness of breath. Abdominal: No abdominal pain. No nausea. No vomiting. Genitourinary: No dysuria. No hematuria. Musculoskeletal: No myalgias. Positive sacral pain. Neurologic: No headaches. No dizziness. No lightheadedness. Skin: No rash. No change in color. Psychiatric: No depression. No anxiety. EXAM Physical Exam Narrative Exam Narrative: Afebrile. Vital signs noted. HEENT: Normocephalic. Atraumatic. PERRL, EOMI. Neck soft and supple. No point tenderness or step off. Cardiovascular: Regular rate and rhythm. No murmurs, rubs, or gallops appreciated. Respiratory: No tachypnea. Lungs clear to auscultation bilaterally. Gastrointestinal: Abdomen soft, nontender, with normoactive bowel sounds. No rebound or guarding. Neurological: Awake. Alert. Nonfocal, nonlateralizing. Skin: No rash. Normal color. No pallor. Musculoskeletal: No pedal edema. Full range of motion extremities. Inspection of low back shows no evidence of erythema. She notes a bony protrusion of her sacrum as she is thin, and this is the same area where she has had chronic pain. Const Vital Signs: 11/10/22 20:39 Temperature 97 F L Temperature Source Temporal Pulse Rate 103 H Respiratory Rate 19 H Blood Pressure 168/93 H Blood Pressure Mean 118 Pulse Ox 97 MDM MDM MDM Narrative Medical decision making narrative: I reviewed the patient's prior ED visits. She has had multiple of her chronic pain. She has been treated with intramuscular Dilaudid and given short prescriptions for narcotic pain medications in the past. When I saw her last in 2021, I do not feel that narcotic pain medication was indicated at that time. However, as she has since followed up and is no longer seeing her pain management doctor, I discussed with her giving her 1 dose of pain medication here in the emergency department. It was discussed that she will not receive a prescription for narcotic pain medication as I do feel though should be controlled by her primary care provider. She states that he will no longer right any narcotic pain medication for her. Regardless, I do feel that she can be discharged to follow-up with her primary care physician or pain management again. Disposition is discharged home in stable condition. Discharge Plan Triage Chief Complaint: Anxiety ED Provider: Nayan Urban Dx/Rx/DC Orders Prescriptions: No Action atorvastatin 20 MG tablet 20 mg PO QHS gabapentin 300 MG capsule 600 mg PO TID fluoxetine 20 MG capsule 80 mg PO DAILY omeprazole 40 MG capsule,delayed release(DR/EC) 40 mg PO PRN PRN (Reason: Indigestion) Primary Care Provider: Paolo Girard Referrals: Paolo Girard MD [Primary Care Provider] -
[2022-11-10 21:42] VITALS: RESP 20
[2022-11-10] MEDS: HYDROcodone Bitartrate/Apap 5/325 Tablet PO (21:42)
== END 2022-11-10 21:45 | disposition home or self-care (01) ==
PROVIDERS: Emergency Provider Emergency Medicine; PCP Internal Medicine; Visit Provider Emergency Medicine
DX: F41.9 Anxiety disorder, unspecified (principal); J44.9 Chronic obstructive pulmonary disease, unspecified; E78.00 Pure hypercholesterolemia, unspecified; F17.210 Nicotine dependence, cigarettes, uncomplicated; Z79.899 Other long term (current) drug therapy; Z90.710 Acquired absence of both cervix and uterus
CPT/HCPCS: 99284

== ENCOUNTER 2022-11-15 04:01 | Emergency (ER) | payer MEDICARE, MEDICAID, SELFPAY ==
[2022-11-15 04:02] VITALS: BP 181/93; PULSE 100; RESP 95; TEMP 36.6; BMI 17.4
--- NOTE | 2022-11-15 04:41 | ED.VIS.BACK ---
HPI History of Present Illness Chief Complaint: Back Informant: patient Onset/Context/Timing Onset: Days (2) Context: Gradual Onset Injury: lifting Timing: Continuous Quality: Burning Location: Lumbar, Buttock and Right Leg Worsened by: improves with - (Everything) Relieved by: Nothing Associated Symptoms Associated Symptoms: Numbness, Tingling and Radiation to Right Leg; Negative for Radiation to Left Leg, Fever, Abdominal Pain, Dysuria, Unable to Ambulate, Unable to Transfer, Urinary Retention, Urinary Incontinence, Constipation or Fecal Incontinence Narrative Narrative: Patient with back pain that has been getting worse over the past 3 days. Patient states she was doing some lifting at home and her back pain became worse. Patient states she has a history of chronic back pain. Patient states she is to see a pain management physician but no longer sees one. Patient describes her pain as burning. Patient states it is over the right lower lumbar and sacral area. Patient states everything makes it worse. Patient states nothing makes it better. Patient admits to some numbness and tingling in her right leg. Patient states her pain radiates down her right leg. [facility] Medical History Abnormal LFTs Alcoholism Anxiety COPD (chronic obstructive pulmonary disease) Elevated cholesterol History of pneumonia Thrombocytosis Home Medications atorvastatin 20 mg tablet 20 mg PO QHS 04/03/18 [History Last Taken Unknown] fluoxetine 20 mg capsule 80 mg PO DAILY 04/03/18 [History Last Taken Unknown] gabapentin 300 mg capsule 600 mg PO TID 04/03/18 [History Last Taken Unknown] omeprazole 40 mg capsule,delayed release 40 mg PO PRN PRN Indigestion 02/26/20 [History Last Taken Unknown] Allergy/AdvReac Type Severity Reaction Status Date / Time cortisone Allergy Swelling Verified 03/14/22 22:13 latex Allergy Itching Verified 03/14/22 22:13 Penicillins Allergy Hives Verified 03/14/22 22:13 ibuprofen AdvReac Vomiting Verified 03/14/22 22:13 meloxicam AdvReac Vomiting Verified 01/13/22 13:05 Family History Mother Hypertension Hypercholesteremia Diabetes Other Arthritis Cancer Surgical History History of back surgery History of hysterectomy Social History Smoking Status: Current every day smoker tobacco type: cigarettes Tobacco: How many years used: 38 ROS ROS ED Constitutional Constitutional ED: Denies chills or fever(s) Eyes Eyes: Denies blurry vision or change in vision ENT ENT ED: Denies rhinorrhea or sore throat Cardiovascular Cardiovascular: Denies chest pain or palpitations Respiratory/Chest Respiratory/Chest: Denies cough or dyspnea Gastrointestinal Gastrointestinal: Denies nausea or vomiting Genitourinary Genitourinary ED: Denies dysuria or hematuria Musculoskeletal Musculoskeletal: Reports back pain and neck pain Integumentary Reports rash; Denies abscess Neurologic Neurologic: Denies headache(s) or weakness Allergic/Immunologic Allergic/Immunologic ED: Denies mouth swelling or urticaria EXAM Physical Exam Const Vital Signs: 11/15/22 04:02 Temperature 97.8 F Temperature Source Oral Pulse Rate 100 Respiratory Rate 95 H Blood Pressure 181/93 H Blood Pressure Mean 122 Oxygen Delivery Method Room Air Positive well nourished and well developed General Appearance ED: well developed and NAD HEENT Reports moist mucous membranes Neck supple and no JVD Back/Spine Back/Spine Narrative: There is tenderness palpation over the right lower lumbar paraspinal muscles, right sacroiliac joint, and posterior aspect of the right hip. There is no obvious deformity noted. There is no edema or ecchymosis noted. There is no bony crepitance or step-off. Range of motion was limited in all motions of the lumbar spine secondary to pain. Strength is 5/5 bilaterally in the lower extremities. There are no sensory deficits noted. Lumbar Spine / Lower Back: ROM limited Extremity General Extremety ED: Negative for edema or tenderness General Extremity: Negative for edema Neuro oriented x3 and no sensory deficits noted Sensorium / Orientation: alert Motor Exam: strength 5/5 throughout Psych mental status grossly normal MDM MDM MDM Narrative Medical decision making narrative: Patient states this is a flareup of her chronic back pain. I do not feel x-rays are necessary at this time. Patient was given a dose of [place] here. Patient was instructed to follow-up with her primary care physician for any further prescriptions. Patient was instructed to return if worse in any way. Patient understood and was agreeable with the plan. All questions were answered. Discharge Plan Triage Chief Complaint: Back ED Provider: Marko Lopez Dx/Rx/DC Orders Clinical Impression: Exacerbation of chronic back pain, PTSD (post-traumatic stress disorder) Instructions: ED Back Pain (Acute or Chronic), ED Chronic Pain Prescriptions: No Action atorvastatin 20 MG tablet 20 mg PO QHS gabapentin 300 MG capsule 600 mg PO TID fluoxetine 20 MG capsule 80 mg PO DAILY omeprazole 40 MG capsule,delayed release(DR/EC) 40 mg PO PRN PRN (Reason: Indigestion) Primary Care Provider: Paolo Girard Referrals: Paolo Girard MD [Primary Care Provider] - 3-5 Days Disposition Disposition: Home, Self Care
[2022-11-15] MEDS: HYDROcodone Bitartrate/Apap 5/325 Tablet PO (04:53)
== END 2022-11-15 04:55 | disposition home or self-care (01) ==
PROVIDERS: Emergency Provider Emergency Medicine; PCP Internal Medicine; Visit Provider Emergency Medicine
DX: M54.9 Dorsalgia, unspecified (principal); J44.9 Chronic obstructive pulmonary disease, unspecified; F17.210 Nicotine dependence, cigarettes, uncomplicated; G89.29 Other chronic pain; E78.00 Pure hypercholesterolemia, unspecified; F43.10 Post-traumatic stress disorder, unspecified; F41.9 Anxiety disorder, unspecified; Z79.899 Other long term (current) drug therapy; Z90.710 Acquired absence of both cervix and uterus
CPT/HCPCS: 99284

== ENCOUNTER → 2023-01-13 | Outpatient (CLI) | payer MEDICARE, MEDICAID, SELFPAY ==
--- NOTE | 2023-01-13 15:51 | BI_ITS ---
MAMMOGRAPHY - BILATERAL SCREENING REASON FOR EXAM: Female, 57 years old. Routine annual screening examination. PERTINENT HISTORY: Non-contributory. TECHNIQUE: Digital bilateral breast kyaw (3D mammographic acquisition) in the CC and MLO projections. 2-D mediolateral oblique (MLO) and craniocaudad (CC) views of both breasts were obtained. CAD: Full Field Digital Mammography with Computer Added Detection was performed. COMPARISON: Comparison is made with prior study dated November 06, 2021 and November 09, 2019. FINDINGS: Breast Composition: The breasts are heterogeneously dense, which may obscure small masses. There are no dominant masses or suspicious calcifications. No other significant abnormalities are identified. There has been no significant change since the prior study. BI/SCRN MAMM (CAD)W/KYAW BILAT IMPRESSION: Stable bilateral screening mammogram. Yearly follow-up mammogram recommended. (A) ASSESSMENT CATEGORY: BIRADS Category 1: Negative. A letter regarding these results will be sent to the patient by the facility within 30 days. Approximately 10% of breast cancers are not detected by mammography. A normal mammogram should not delay biopsy of a clinically suspicious abnormality. [id number] Electronically Signed: Geremias Hernandez MD at 8:21 EDT ,
== END | disposition home or self-care (01) ==
LOC: OPBI 15:49
PROVIDERS: PCP Internal Medicine; Referring Provider Internal Medicine; Visit Provider Internal Medicine
DX: Z12.31 Encounter for screening mammogram for malignant neoplasm of breast (principal)
CPT/HCPCS: 77063; 77067

== ENCOUNTER → 2023-01-15 | Outpatient (CLI) | payer MEDICARE, MEDICAID, SELFPAY ==
--- NOTE | 2023-01-15 09:39 | CT_ITS ---
INDICATION: ABN XRAY - LUNG OPACITY/OPACITIES EXAMINATION: CT CHEST WITHOUT CONTRAST - CT Chest W/O Contrast Injection TECHNIQUE: Helically acquired images were obtained of the chest. A radiation dose optimization technique was used for this scan. IV Contrast dosage and agent: None. COMPARISON: 04/07/2020 FINDINGS: LUNGS, PLEURA AND LARGE AIRWAYS: Moderate bilateral apical scarring. Mild emphysema. No noncalcified nodule or mass. No pleural effusion or thickening. No pneumothorax. THYROID: No thyroid lesions. HEART AND PERICARDIUM: Heart size is normal. No pericardial effusion. CORONARY ARTERIES: Coronary artery calcification is seen. VESSELS: Thoracic aorta is not dilated. MEDIASTINUM AND FRANK: No mediastinal or hilar adenopathy. Esophagus is unremarkable. No hiatal hernia. UPPER ABDOMEN: No acute pathology. BONES: No suspicious lytic or blastic abnormality. CT/Chest without Contrast IMPRESSION: Mild emphysema with bilateral apical scarring but no pneumonia, atelectasis, nodule, or mass. Electronically Signed: Constantino Mike MD at 22:19 EDT ,
== END | disposition home or self-care (01) ==
LOC: CT 09:38
PROVIDERS: PCP Internal Medicine; Referring Provider Nurse Practitioner; Visit Provider Nurse Practitioner
DX: J92.9 Pleural plaque without asbestos (principal); J43.9 Emphysema, unspecified; F17.210 Nicotine dependence, cigarettes, uncomplicated
CPT/HCPCS: 71250

== ENCOUNTER 2024-01-06 04:47 | Emergency (ER) | payer MEDICARE, MEDICAID, SELFPAY ==
[2024-01-06 04:50] VITALS: BP 181/97; PULSE 85; RESP 16; TEMP 36.8; O2SAT 98; BMI 15.6
--- NOTE | 2024-01-06 04:55 | EX.ED.DYSGE1 ---
HPI History of Present Illness Chief Complaint: Other, Pain/Inj Informant: patient Onset/Context/Timing Onset: Weeks (3) Context: Gradual Onset Timing: Continuous Quality: Burning Location: Sacrum Worsened by: Sitting, palpation, movement Relieved by: Nothing Narrative Narrative: Patient presents with pain over her sacrum that has been getting worse over the past 3 weeks. Patient states that a door swung open and hit her on her tailbone. Patient describes the pain as burning. Patient states it is mainly over the sacrum and lower lumbar area. Patient states it is worse with sitting and worse with palpation. Patient denies any radiation of the pain. Patient denies any bowel or bladder changes. Patient denies any saddle anesthesia. [facility] Medical History (Updated 01/06/24 @ 06:[address] Marko Lopez DO) History of pneumonia COPD (chronic obstructive pulmonary disease) Elevated cholesterol Anxiety Alcoholism Abnormal LFTs Thrombocytosis Home Medications ?Medication ?Instructions ?Recorded ?Last Taken ?Type atorvastatin 20 mg tablet 20 mg PO QHS 04/03/18 Unknown History fluoxetine 20 mg capsule 80 mg PO DAILY 04/03/18 Unknown History omeprazole 40 mg capsule,delayed 40 mg PO PRN PRN Indigestion 02/26/20 Unknown History release albuterol sulfate 90 mcg/actuation 2 inh inhalation Q4H PRN 01/06/24 Unknown History aerosol inhaler gabapentin 600 mg tablet 1,800 mg PO DAILY 01/06/24 Unknown History Allergy/AdvReac Type Severity Reaction Status Date / Time cortisone Allergy Swelling Verified 01/06/24 04:48 latex Allergy Itching Verified 01/06/24 04:48 Penicillins Allergy Hives Verified 01/06/24 04:48 ibuprofen AdvReac Vomiting Verified 01/06/24 04:48 meloxicam AdvReac Vomiting Verified 01/06/24 04:48 Family History Mother Hypertension Hypercholesteremia Diabetes Other Arthritis Cancer Surgical History (Updated 01/06/24 @ 05:[address] Marko Lopez DO) Hx of neck surgery History of back surgery History of hysterectomy Social History (Updated 01/06/24 @ 05:[address] Marko Lopez DO) Smoking Status: Current every day smoker tobacco type: cigarettes Tobacco: How many years used: 38 ROS ROS ED Constitutional Constitutional ED: Denies chills or fever(s) Eyes Eyes: Denies blurry vision or change in vision ENT ENT ED: Denies rhinorrhea or sore throat Cardiovascular Cardiovascular: Denies chest pain or palpitations Respiratory/Chest Respiratory/Chest: Denies cough or dyspnea Gastrointestinal Gastrointestinal: Denies nausea or vomiting Genitourinary Genitourinary ED: Denies dysuria or hematuria Musculoskeletal Musculoskeletal: Reports back pain; Denies neck pain Integumentary Reports rash; Denies abscess Neurologic Neurologic: Denies headache(s) or weakness Allergic/Immunologic Allergic/Immunologic ED: Denies mouth swelling or urticaria EXAM Physical Exam Const Vital Signs: 01/06/24 04:50 01/06/24 04:53 Temperature 98.2 F Temperature Source Oral Pulse Rate 85 Respiratory Rate 16 Respiratory Effort Normal Non-Labored Respiratory Pattern Normal Blood Pressure 181/97 H Blood Pressure Mean 125 Pulse Ox 98 Oxygen Delivery Method Room Air Positive well nourished and well developed General Appearance ED: well developed and NAD HEENT Reports moist mucous membranes Neck supple and no JVD Back/Spine Back/Spine Narrative: There is tenderness over the lower lumbar spine and sacrum. There is no edema or ecchymosis. There is no erythema or warmth. There is no ulceration noted. There is no bony crepitance or step-off noted. Range of motion was slightly limited in all motions of the lumbar spine secondary to pain. Neuro oriented x3, CN's II-XII intact bilaterally and no sensory deficits noted Sensorium / Orientation: alert Motor Exam: strength 5/5 throughout Psych mental status grossly normal MDM MDM MDM Narrative Medical decision making narrative: Differential diagnosis includes contusion, spondylolisthesis, and lumbosacral strain. X-rays of the lumbar spine and sacrum will be obtained to assess for spondylolisthesis and occult fracture. Radiography X-Ray: LS SPine, Read by ED Physician, Read by Radiologist, Normal Bony Alignment and DJD Diagnostic Testing: Clinical Impression(s) from Imaging Studies Sacrum and Coccyx X-Ray 01/06/24 05:21 IMPRESSION: No definite fracture. CT may be helpful further evaluation if clinically indicated. Electronically Signed: Lu Dean MD at 6:42 EDT Reading Location ID and State: [facility]– [place][note 2] / [place] Tel , Service support , Lumbar Spine X-Ray 01/06/24 05:30 IMPRESSION: No evidence of fracture or subluxation. Electronically Signed: Lu Dean MD at 6:41 EDT Reading Location ID and State: [address] [place] [address] Tel , Service support , X-rays of the lumbar spine were obtained. There are 2 views. On my independent interpretation, there is no acute fracture or spondylolisthesis. There are some mild degenerative changes noted. Radiologist also interpreted the x-rays and agrees. X-rays of the sacrum and coccyx were obtained. There are 3 views. On my independent interpretation, there is no acute fracture or dislocation. There are some mild degenerative changes noted. Radiologist also interpreted the x-rays and agrees. Treatment and Re-Evaluation :: Smoking cessation was discussed. Patient was advised of her findings. Patient was instructed to follow-up with her primary care physician in 5 to 7 days. Patient understood and was agreeable with the plan. All questions were answered. Discharge Plan Triage Chief Complaint: Other, Pain/Inj ED Provider: Marko Lopez Dx/Rx/DC Orders Clinical Impression: Acute lumbosacral myofascial strain, Chronic back pain Instructions: ED Back Sprain/Strain, ED Chronic Pain Prescriptions: No Action atorvastatin 20 MG tablet 20 mg PO QHS fluoxetine 20 MG capsule 80 mg PO DAILY omeprazole 40 MG capsule,delayed release(DR/EC) 40 mg PO PRN PRN (Reason: Indigestion) gabapentin 600 mg tablet 1,800 mg PO DAILY Patient Comments: take 1 tablet by mouth three times a day albuterol sulfate 90 mcg/actuation HFA aerosol inhaler 2 inh INHALATION Q4H PRN Patient Comments: inhale 2 puffs by mouth and INTO THE LUNGS every 4 hours if neede... (REFER TO PRESCRIPTION NOTES). Primary Care Provider: Paolo Girard Referrals: Paolo Girard MD [Primary Care Provider] - 3-5 Days Print Language: Macedonian Disposition Disposition: Home, Self Care
--- OUTSIDE RECORDS SUMMARY | 2024-01-06 05:16 | XMS RPT_ITS | CCD ---
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 contrast on occasion, not consistently, and no specific reaction was noted MELOXICAM 08/13/2021 8 - GI Upset ENTEX (PHENYLEPHRINE-GUAIFEN ESIN) 01/04/2005 5 - Intolerance NAPROSYN (NAPROXEN) 12/21/2004 2 - Rash Date Reviewed: 07/14/2023 Reviewed by: Shanelle Albert LPN - Fully Assessed Reason for Visit: [facility] Care [Other] Cmt: pt update with [facility] Prescriptions as of 09/06/2023 - albuterol HFA (PROVENTIL HFA, VENTOLIN HFA) 90 mcg/actuation inhaler Inhale 2 Puffs as instructed every 4 hours as needed for wheezing/shortness of breath. Patient requests VENTOLIN please. With spacer please. - FLUoxetine (PROZAC) 40 mg capsule Take 1 capsule by mouth two times a day. - atorvastatin (LIPITOR) 40 mg tablet Take 1 tablet by mouth once daily. - gabapentin (NEURONTIN) 600 mg tablet Take 1 tablet by mouth three times a day for 180 days. - cyclobenzaprine (FLEXERIL) 10 mg tablet Take 1 tablet by mouth three times a day as needed for muscle spasm. - fluticasone (FLONASE) 50 mcg/actuation nasal spray Use 2 Sprays in each nostril once daily. Rinse mouth after use. - metoprolol succinate ER (TOPROL XL) 25 mg 24 hr tablet Take 1 tablet by mouth once daily. - omeprazole (PRILOSEC) 40 mg capsule Take 40 mg by mouth. - acetaminophen (TYLENOL EXTRA STRENGTH) 500 mg tablet Take 2 tablets by mouth every 6 hours as needed for pain. Problem List As Of Date 08/10/2023 Noted Resolved Depression, major [F32.9] 04/23/2010 Emphysema/COPD (HCC) [J43.9] 04/23/2010 Cigarette smoker [F17.210] 05/05/2010 Post-traumatic stress disorder [F43.10] 06/03/2010 Complicated grief [F43.21] 06/23/2011 02/02/2021 Anxiety disorder [F41.9] 06/23/2011 Hip pain [M25.559] 02/07/2013 01/11/2022 Hot flashes [R23.2] 02/28/2013 02/27/2021 RSD (reflex sympathetic dystrophy) [G90.50] 03/28/2013 06/27/2023 Fibromyalgia [M79.7] 03/28/2013 Inflammatory polyarthropathy (HCC) [M06.4] 03/28/2013 01/11/2022 NO SHOW [588370] 09/04/2014 12/10/2015 Nightmares associated with chronic post-traumat* 8 06/27/2023 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] 02/27/2021 Impaired glucose metabolism [R73.09] 02/27/2021 Left shoulder pain [M25.512] 05/08/2021 06/27/2023 Cervicalgia [M54.2] 05/08/2021 06/27/2023 Cervical spondylosis without myelopathy [M47.81*09/16/2021 Post laminectomy syndrome [M96.1] 01/11/2022 Hyperlipidemia [E78.5] 01/11/2022 Thrombocytosis, unspecified [D75.839] 01/23/2013 Arthralgia of left temporomandibular joint [M26*07/13/2023 Encounter Status:Closed by JACOB ROSENBAUM on 08/11/23 [facility] 08-05-2023 [facility] BARBARA HERNANDEZ ([id number]) 1965 F [facility] Date Time Provider Department 08/05/23 MANJEET OCASIO During your visit today, we recorded the following information about you: Gladis Villarreal 08/05/2023 8:29 AM Signed Patient calling for lab results from 07/13. Patient is upset that she hasn't been informed. Molina Jones, JAKE 08/05/2023 10:[address] Ocasio reviewed labs, all WNL. Increased platelets not due to a hematology issue. No further follow up needed with our office. Domi Jones RN Call to patient, aware of above. Questions answered. She states this is very similar information as discussed at her OV with him on 08/09/23. She thanked this nurse for return call. Domi Jones RN Allergies As of Date: 08/05/2023 Noted Allergy Reaction CORTISONE 08/14/2014 4 - Hives LATEX, NATURAL RUBBER 04/23/2010 2 - Rash PENICILLINS 12/21/2004 4 - Hives IV CONTRAST (IODINE) 09/16/2021 14 - Other: See Comments Comments: Patient reports she has had reactions to contrast on occasion, not consistently, and no specific reaction was noted MELOXICAM 08/13/2021 8 - GI Upset ENTEX (PHENYLEPHRINE-GUAIFEN ESIN) 01/04/2005 5 - Intolerance NAPROSYN (NAPROXEN) 12/21/2004 2 - Rash Date Reviewed: 07/14/2023 Reviewed by: Shanelle Albert LPN - Fully Assessed Reason for Visit: Results [95] Prescriptions as of 08/05/2023 - atorvastatin (LIPITOR) 40 mg tablet Take 1 tablet by mouth once daily. - albuterol HFA (PROVENTIL HFA, VENTOLIN HFA) 90 mcg/actuation inhaler Inhale 2 Puffs as instructed every 4 hours as needed for wheezing/shortness of breath. Patient requests VENTOLIN please. With spacer please. - gabapentin (NEURONTIN) 600 mg tablet Take 1 tablet by mouth three times a day for 180 days. - cyclobenzaprine (FLEXERIL) 10 mg tablet Take 1 tablet by mouth three times a day as needed for muscle spasm. - fluticasone (FLONASE) 50 mcg/actuation nasal spray Use 2 Sprays in each nostril once daily. Rinse mouth after use. - FLUoxetine (PROZAC) 40 mg capsule Take 1 capsule by mouth two times a day. - metoprolol succinate ER (TOPROL XL) 25 mg 24 hr tablet Take 1 tablet by mouth once daily. - omeprazole (PRILOSEC) 40 mg capsule Take 40 mg by mouth. - acetaminophen (TYLENOL EXTRA STRENGTH) 500 mg tablet Take 2 tablets by mouth every 6 hours as needed for pain. Problem List As Of Date 08/05/2023 Noted Resolved Depression, major [F32.9] 04/23/2010 Emphysema/COPD (HCC) [J43.9] 04/23/2010 Cigarette smoker [F17.210] 05/05/2010 Post-traumatic stress disorder [F43.10] 06/03/2010 Complicated grief [F43.21] 06/23/2011 02/02/2021 Anxiety disorder [F41.9] 06/23/2011 Hip pain [M25.559] 02/07/2013 01/11/2022 Hot flashes [R23.2] 02/28/2013 02/27/2021 RSD (reflex sympathetic dystrophy) [G90.50] 03/28/2013 06/27/2023 Fibromyalgia [M79.7] 03/28/2013 Inflammatory polyarthropathy (HCC) [M06.4] 03/28/2013 01/11/2022 NO SHOW [918913] 09/04/2014 12/10/2015 Nightmares associated with chronic post-traumat* 8 06/27/2023 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] 02/27/2021 Impaired glucose metabolism [R73.09] 02/27/2021 Left shoulder pain [M25.512] 05/08/2021 06/27/2023 Cervicalgia [M54.2] 05/08/2021 06/27/2023 Cervical spondylosis without myelopathy [M47.81*09/16/2021 Post laminectomy syndrome [M96.1] 01/11/2022 Hyperlipidemia [E78.5] 01/11/2022 Thrombocytosis, unspecified [D75.839] 01/23/2013 Arthralgia of left temporomandibular joint [M26*07/13/2023 Encounter Status:Closed by MOLINA JONES on 08/05/23 Normal [facility] MYELOPROLIFERATIVE NEOPLASM PANEL BLOODon 07-21-2023 Myeloproliferative Neoplasm Panel Peripheral Blood Myeloproliferative Neoplasm Panel Laboratory Accession Number: [id number] Sample Type: Peripheral Blood Result: CALR - No variant detected (Reference sequence: [id number]). JAK2 - No variant detected (Reference sequence: [id number]). MPL - No variant detected (Reference sequence: [id number]). Interpretation: No variants were identified in CALR exon 9, JAK2 exons 12-16 or MPL exons 10 and 11. This result does not exclude the possibility of a myeloproliferative neoplasm. If clinically indicated, additional testing for a broader panel of myeloid neoplasm-associated mutations (i.e., Hematologic Neoplasms NGS panel) may be helpful to further assess for clonal hematopoiesis. Methodology: Genomic DNA extracted from blood or bone marrow was subject to an amplicon based method to enrich for CALR exon 9, JAK2 exons 12-16 and MPL exons 10 and 11, including the flanking canonical splicing sites. Pair-end DNA sequencing was performed on the Illumina instrument ([place], [place]). A customized bioinformatic pipeline was used to align the sequencing reads to the reference human genome (GRCh37/hg19). Benign common polymorphisms are not reported. Limitations: Sequence changes outside the analyzed regions, including intronic, noncoding, and splice-site variants, will not be identified by this test. The lower limit of detection of this assay is approximately 1% allele proportion for the JAK2 [id number] single nucleotide variant and approximately 5% allele proportion for other variants. Variants below 5% allele proportion may be reported at the discretion of the molecular pathology professional staff if the technical quality of the sequencing is sufficient at that location and the call is unequivocal. Common germline polymorphisms are considered to represent wild type sequence and are not included in this report. The presence of nucleotide polymorphisms or variants at the annealing sites of the primers used in amplification and sequencing may cause allele drop- outs, hence a false negative result is possible. Disclaimer: This test was developed and its performance characteristics determined by [facility]'s [facility] [place] ([facility]). It has not been cleared or approved by the FDA. [facility] is regulated under CLIA as certified to perform high- complexity testing. This test is used for clinical purposes. It should not be regarded as investigational or for research. Testing and interpretation performed at [facility], [address] [place] [address]. CLIA Number: [id number] References: 1) Katie SCHOFIELD, Joe A, Rod R, Smitha J, Sarabjit MJ, Aleah Francis MM, et al. The 2016 revision to the World Health Organization (WHO) classification of myeloid neoplasms and acute leukemia. Blood 2016;127: 2391-405. 2) NCCN Guidelines, Myeloproliferative Neoplasms, Version 2.2018. 3) Jacquie Trujillo, Karri JOHNSON. Genomics of Myeloproliferative Neoplasms. J Clin Oncol. 2017 May 31;35(9):947-954. As reviewed by Shelia Archuleta MD [facility] CNOVSPon 07-14-2023 CNOVSP Visit (SP) Office (HEMAWS) BARBARA HERNANDEZ ([id number]) 1965 F T Date Time Provider Department 07/14/23 1:00 PM MANJEET OCASIO During your visit today, we recorded the following information about you: Temperature Pulse Weight Height 97.4 degrees 111/minute 42.9 kg 1.645 m Shanelle Albert LPN 07/29/2023 7:56 AM Signed New pt, discuss recent DX: thrombocytosis, night sweats, unintentional weight loss BRYANNA Valverde Drew, MD 08/09/2023 9:45 AM Signed HISTORY OF PRESENT ILLNESS: Barbara Hernandez is a 57 year old female referred for evaluation fo thrombocytosis. Labs reviewed, thrombocytosis is chronic and mild CLINICAL IMPRESSION: Thrombocytosis suspect reactive RECOMMENDATION/PLAN: 1. Labs as ordered, follow up as indicated Written and verbal health teaching given to patient, patient verbalizes understanding and agrees with treatment plan. PAST MEDICAL HISTORY Diagnosis Date Anxiety disorder 06/23/2011 Chronic obstructive pulmonary disease (COPD) ([facility]) Complicated grief 06/23/2011 Depression Depression, major 04/23/2010 Emphysema/COPD ([facility]) 04/23/2010 Fibromyalgia 03/28/[address] Bergman Hot flashes 02/28/2013 Inflammatory polyarthropathy ([facility]) 03/28/[address] Bergman Marcia - [place] tear 09/2010 received transfusion Nightmares associated with chronic post-traumatic stress disorder 09/21/2017 Post-traumatic stress disorder 06/03/2010 RSD (reflex sympathetic dystrophy) 03/28/2013 Right upper extremity screening for Type 2 diabetes mellitus without complication (HCC) 07/16/2016 Thrombocytosis, unspecified 01/23/2013 Traumatic coccydynia 02/27/2021 PAST SURGICAL HISTORY Procedure Laterality Date ESOPHAGOGASTRODUODENOS COPY TRANSORAL DIAGNOSTIC 10/07/2010 EGD [facility] inpt n /H-pylori negative LAMINOTOMY (HEMILAMINECTOMY), WITH DECOMPRESSION OF NERVE ROOT(S) Right 03/12/2020 L5-S1 discectomy, [facility], Dr. Bety Spicer LIG/TRNSXJ FLP TUBE ABDL/VAG APPR UNI/BI Tubal ligation PAST SURGICAL HISTORY OF 07/24/2018 Complete hysterectomy PAST SURGICAL HISTORY OF Right carpal tunnel FAMILY HISTORY Problem Relation Age of Onset Diabetes Mother Hypertension Mother Cancer Mother Coronary Artery Disease Father myesthenia gravis Heart Father By-pass COPD Brother other (Smoker) Brother Social History Tobacco Use Smoking status: Every Day Packs/day: 1.00 Years: 20.00 Additional pack years: 0.00 Total pack years: 20.00 Types: Cigarettes Smokeless tobacco: Never Tobacco comments: Down to a couple cigarettes a day Vaping Use Vaping Use: Never used Substance Use Topics Alcohol use: Not Currently Comment: quit drinking 01/25/18 Drug use: No ALLERGIES: ALLERGIES Allergen Reactions Cortisone Hives Latex, Natural Rubb* Rash Penicillins Hives Iv Contrast [Iodine] Other: See Comments Patient reports she has had reactions to contrast on occasion, not consistently, and no specific reaction was noted Meloxicam GI Upset Entex [Phenylephrin* Intolerance Naprosyn [Naproxen] Rash CURRENT OUTPATIENT MEDICATIONS: atorvastatin (LIPITOR) 40 mg tablet Take 1 tablet by mouth once daily. albuterol HFA (PROVENTIL HFA, VENTOLIN HFA) 90 mcg/actuation inhaler Inhale 2 Puffs as instructed every 4 hours as needed for wheezing/shortness of breath. Patient requests VENTOLIN please. With spacer please. gabapentin (NEURONTIN) 600 mg tablet Take 1 tablet by mouth three times a day for 180 days. cyclobenzaprine (FLEXERIL) 10 mg tablet Take 1 tablet by mouth three times a day as needed for muscle spasm. fluticasone (FLONASE) 50 mcg/actuation nasal spray Use 2 Sprays in each nostril once daily. Rinse mouth after use. FLUoxetine (PROZAC) 40 mg capsule Take 1 capsule by mouth two times a day. metoprolol succinate ER (TOPROL XL) 25 mg 24 hr tablet Take 1 tablet by mouth once daily. omeprazole (PRILOSEC) 40 mg capsule Take 40 mg by mouth. acetaminophen (TYLENOL EXTRA STRENGTH) 500 mg tablet Take 2 tablets by mouth every 6 hours as needed for pain. REVIEW OF SYSTEMS: GENERAL: No fever, night sweats, weight loss or malaise. All other reviewed and negative other than HPI. PHYSICAL EXAMINATION: VITAL SIGNS: Pulse 111 Temp 97.4 Ht 5' 4.75 (1.65m) Wt 94 lb 8 oz (42.9kg) LMP 08/06/2014 BMI 15.84 kg/(m2). GENERAL APPEARANCE: Well appearing, in no acute distress, alert and oriented x3, well-hydrated, well nourished. I spent a total of 30 minutes on the date of the service which included preparing to see the patient, [id number] patient care, completing clinical documentation, obtaining and/or reviewing separately obtained history, counseling and educating the patient/family/caregiv er, ordering medications, tests, or procedures, independently interpreting results (not separately reported), and commun (more content not included)... Normal [facility] FERRITINon 07-14-2023 Ferritin [Mass/Vol] 139.0 ng/mL 14.7 - 2 05.1 ng/mL [facility] Ferritin SerPl-mCncon 2023 Ferritin [Mass/Vol] 139.0 ng/mL Normal 14.7-205.1 [facility] Comment on above: Order Comment: Speci men Type: BLOOD SPECIMENOrdering Facility: [facility] Address: [address] [place] [address] Performed By: #### 5 0190-8, 2132-9, 2276-4 ####[facility] LABCLIA [id number] [place] [address] [place] Iron and Iron binding capaci ty panelon 07-14-2023 Interpretation and review of laboratory results Normal [facility] Iron [Mass/Vol] 77 ug/dL 41 - 186 ug/dL [facility] Iron binding capacity [Mass/Vol] 324 ug/dL 232 - 386 ug/dL [facility] Iron/TIBC [Molar ratio] 23.8 % 15.0 - 57.0 % [facility] Iron [Mass/Vol] 77 ug/dL Normal 41-186 [facility] Comment on above: Order Comment: Speci men Type: BLOOD SPECIMENOrdering Facility: [facility] Address: [address] [place] [address] Performed By: #### 5 0190-8, 2131-11, 2275-4 ####[facility] LABCLIA [id number] [place] [address] [place] [facility] Iron binding capacity [Mass/Vol] 324 ug/dL Normal 232-386 [facility] Comment on above: Order Comment: Speci men Type: BLOOD SPECIMENOrdering Facility: [facility] Address: [address] [place] [address] Performed By: #### 5 0190-8, 2131-11, 4 ####[facility] LABCLIA [id number] [address] STATES OF [facility] Iron/TIBC [Molar ratio] 23.8 % Normal 15.0-57.0 [facility] Comment on above: Order Comment: Speci men Type: BLOOD SPECIMENOrdering Facility: [facility] Address: [address] [place] [address] Performed By: #### 5 0190-8, 9, 4 ####[facility] LABIA [id number] [address] [place] MYELOPROLIFERATIVE NEOPLASM PANEL BLOODon 07-14-2023 MYELOPROLIFERATIVE NEOPLASM PNL PERIPHERAL BLOOD Normal [facility] Comment on above: Order Comment: Speci men Type: BLOOD SPECIMENOrdering Facility: [facility] Address: [address] [place] [address] Result Comment: Myel oproliferative Neoplasm Panel Laboratory Accession Number: [id number] Sample Type: Peripheral Blood Result: CALR - No variant detected (Reference sequence: [id number]). JAK2 - No variant detected (Reference sequence: [id number]). MPL - No variant detected (Reference sequence: [id number]). Interpretation: No variants were identified in CALR exon 9, JAK2 exons 12-16 or MPL exons 10 and 11. This result does not exclude the possibility of a myeloproliferative neoplasm. If clinically indicated, additional testing for a broader panel of myeloid neoplasm-associated mutations (i.e., Hematologic Neoplasms NGS panel) may be helpful to further assess for clonal hematopoiesis. Methodology: Genomic DNA extracted from blood or bone marrow was subject to an amplicon based method to enrich for CALR exon 9, JAK2 exons 12-16 and MPL exons 10 and 11, including the flanking canonical splicing sites. Pair-end DNA sequencing was performed on the Illumina instrument ([place], [place]). A customized bioinformatic pipeline was used to align the sequencing reads to the reference human genome (GRCh37/hg19). Benign common polymorphisms are not reported. Limitations: Sequence changes outside the analyzed regions, including intronic, noncoding, and splice-site variants, will not be identified by this test. The lower limit of detection of this assay is approximately 1% allele proportion for the JAK2 [id number] single nucleotide variant and approximately 5% allele proportion for other variants. Variants below 5% allele proportion may be reported at the discretion of the molecular pathology professional staff if the technical quality of the sequencing is sufficient at that location and the call is unequivocal. Common germline polymorphisms are considered to represent wild type sequence and are not included in this report. The presence of nucleotide polymorphisms or variants at the annealing sites of the primers used in amplification and sequencing may cause allele drop- outs, hence a false negative result is possible. Disclaimer: This test was developed and its performance characteristics determined by [facility]'s [facility] [place] ([facility]). It has not been cleared or approved by the FDA. [facility] is regulated under CLIA as certified to perform high- complexity testing. This test is used for clinical purposes. It should not be regarded as investigational or for research. Testing and interpretation performed at [facility], [address] [place] [address]. CLIA Number: [id number] References: 1) Katie SCHOFIELD, Joe A, Rod R, Smitha J, Sarabjit SHEPARD, Le Beau MM, et al. The 2016 revision to the World Health Organization (WHO) classification of myeloid neoplasms and acute leukemia. Blood 2016;127: 2391-405. 2) NCCN Guidelines, Myeloproliferative Neoplasms, Version 2.2018. 3) Jacquie Trujillo, Karri JOHNSON. Genomics of Myeloproliferative Neoplasms. J Clin Oncol. 2017 May 31;35(9):947-954. As reviewed by Shelia Archuleta MD Performed By: #### M PNP ####[facility] LIMSCLIA [id number] [address] OF [facility] No Panel Informationon 07-13 Interpretation and review of laboratory results Normal [facility] VITAMIN B12on 07-14-2023 Cobalamin (Vitamin B12) [Mass/Vol] 457 pg/mL 232 - 1245 pg/mL [facility] Vit B12 SerPl-mCncon 024 Cobalamin (Vitamin B12) [Mass/Vol] 457 pg/mL Normal 232-1245 [facility] Comment on above: Order Comment: Speci men Type: BLOOD SPECIMENOrdering Facility: [facility] Address: [address] [place] [address] Performed By: #### 5 0190-8, 2132-9, 2276-4 ####[facility] LABCLIA [id number] [address] [place] [id number] 07-13-2023 [id number] HNO ID: [id number] Author: FAHAD VIDAL PT Service: ? Author Type: Physical Therapist Type: [id number] Filed: 07/13/2023 10:00 Note Text: [facility] Physical Therapy Plan of Care Certification Patient Name: Barbara Hernandez : 1965 [facility] #: [id number] Date: 07/13/2023 To: Paolo Girard MD From Therapist: Fahad Vidal PT RE: Patient Certification/ Recertification Your review, approval and electronic signature are required in order to comply with Payor: [facility] MEDICAID / Plan: [facility] MEDICAID / Product Type: Medicaid / regulations. The identified Physical Therapy PLAN OF CARE for the patient is as follows: M26.622 Arthralgia of left temporomandibular joint (primary encounter diagnosis) PLAN OF CARE: Assessment: Barbara Hernandez presents with chief complaint of L jaw and ear pain that interferes with Comments Eating, talking, showering. She presents with impairments in ADL's, overall function, range of motion, strength, symptom management, and tissue tenderness. Patient did not complete the PROMIS? (Patient Reported Outcome Measures Information System). Prognosis for therapy is Good due to: current objective clinical presentation, within-session changes, good support system/ coping skills . She will benefit from skilled therapy services to meet the goals established for this plan of care as noted below. Goals for Episode of Care: created on 07/13/23 through 09/12/23 Decrease subjective complaints of jaw pain by 50%. Patient to report symptom free with talking and chewing. Decrease tenderness to palpation of craniofacial and intraoral musculature by 50% with no active referral symptoms. Patient to be aware of and compliant with TMJ parafunctional habits to avoid exacerbating symptoms. Patient will demonstrate normal resting position of the jaw to allow for decreased stress on irritable tissue. Planned Interventions, Frequency, and Duration: Current Frequency: 1x/week Duration: 8 weeks Total Number of Visits Planned: 8 Planned Treatment Interventions: Therapeutic exercise (70075), Neuromuscular re-education (85691), Manual therapy (90507), Therapeutic activities (46978), Self-skilled nursing management (95000), Patient/Family/Caregiv er Education, Body Mechanics Training PLAN FOR NEXT VISIT: Manual for referring muscles, further assessment of jaw Patient demonstrates good understanding of plan of care and treatment. The above goals and plan of care were discussed and agreed upon by patient/family. For further details regarding this patient refer to the Physical Therapy electronically documented visit dated 07/13/2023. Provider Attestation I have reviewed the treatment plan for Barbara Hernandez, [facility]# [id number] for the period of 07/13/23 -- 09/12/23, established on 07/13/2023. Signature certifies the need for therapy services. Normal [facility] CNTHERAPYon 07-13-2023 CNTHERAPY OT/PT/Speech Visit (PTWS) BARBARA HERNANDEZ ([id number]) 1965 F CHT Date Time Provider Department 07/13/23 9:00 AM FAHAD VIDAL PTKADI Date Time Provider Department Center 07/13/2023 9:00 AM [id number], SEAN PTKADI [place] Reason for Visit: PT Eval [747] Primary Visit Diagnosis:Arthralgia of left temporomandibular joint [M26.622] Allergies As of Date: 07/13/2023 Noted Allergy Reaction CORTISONE 08/14/2014 4 - Hives LATEX, NATURAL RUBBER 04/23/2010 2 - Rash PENICILLINS 12/21/2004 4 - Hives IV CONTRAST (IODINE) 09/16/2021 14 - Other: See Comments Comments: Patient reports she has had reactions to contrast on occasion, not consistently, and no specific reaction was noted MELOXICAM 08/13/2021 8 - GI Upset ENTEX (PHENYLEPHRINE-GUAIFEN ESIN) 01/04/2005 5 - Intolerance NAPROSYN (NAPROXEN) 12/21/2004 2 - Rash Date Reviewed: 06/27/2023 Reviewed by: Diann Benitez LPN - Fully Assessed Prescriptions as of 07/13/2023 - atorvastatin (LIPITOR) 40 mg tablet Take 1 tablet by mouth once daily. - albuterol HFA (PROVENTIL HFA, VENTOLIN HFA) 90 mcg/actuation inhaler Inhale 2 Puffs as instructed every 4 hours as needed for wheezing/shortness of breath. Patient requests VENTOLIN please. With spacer please. - gabapentin (NEURONTIN) 600 mg tablet Take 1 tablet by mouth three times a day for 180 days. - cyclobenzaprine (FLEXERIL) 10 mg tablet Take 1 tablet by mouth three times a day as needed for muscle spasm. - fluticasone (FLONASE) 50 mcg/actuation nasal spray Use 2 Sprays in each nostril once daily. Rinse mouth after use. - FLUoxetine (PROZAC) 40 mg capsule Take 1 capsule by mouth two times a day. - metoprolol succinate ER (TOPROL XL) 25 mg 24 hr tablet Take 1 tablet by mouth once daily. - omeprazole (PRILOSEC) 40 mg capsule Take 40 mg by mouth. - acetaminophen (TYLENOL EXTRA STRENGTH) 500 mg tablet Take 2 tablets by mouth every 6 hours as needed for pain. Normal [facility] THERAPY NTon 07-13-2023 THERAPY NT HNO ID: [id number] Author: FAHAD VIDAL PT Service: ? Author Type: Physical Therapist Type: Therapy (PT/OT/Speech/Resp) Filed: 07/15/2023 03:05 Note Text: Program_ID:[id number] Access Code: [email or web address] URL: [email or web address] Date: 07-13-2023 Prepared By: Fahad Vidal Program Notes Exercises - Sternocleidomastoid Stretch - 1 x daily - 7 x weekly - 3 sets - 10 reps - Sternocleidomastoid Release - 1 x daily - 7 x weekly - 3 sets - 10 reps - External Jaw Release - 1 x daily - 7 x weekly - 3 sets - 10 reps Normal [facility] CNPDebbie 06-30-2023 RAOUL Telephone (MAGGIE) BARBARA HERNANDEZ ([id number]) 1965 F [facility] Date Time Provider Department 06/30/23 MANJEET OCASIO During your visit today, we recorded the following information about you: Racheal Guardado 06/30/2023 9:53 AM Signed PSS from Dr. Girard office reached out to this PSS to get the patient scheduled as she no showed and cancelled previously. Left message for patient to return call. When she calls, please scheduled New Patient appointment with Dr. Ocasio. Racheal SandyNicolette elizabeth 07/06/2023 9:10 AM Signed Spoke with patient and scheduled with Dr. Ocasio for July 13. Richard Godinezey Allergies As of Date: 06/30/2023 Noted Allergy Reaction CORTISONE 08/14/2014 4 - Hives LATEX, NATURAL RUBBER 04/23/2010 2 - Rash PENICILLINS 12/21/2004 4 - Hives IV CONTRAST (IODINE) 09/16/2021 14 - Other: See Comments Comments: Patient reports she has had reactions to contrast on occasion, not consistently, and no specific reaction was noted MELOXICAM 08/13/2021 8 - GI Upset ENTEX (PHENYLEPHRINE-GUAIFEN ESIN) 01/04/2005 5 - Intolerance NAPROSYN (NAPROXEN) 12/21/2004 2 - Rash Date Reviewed: 06/27/2023 Reviewed by: Diann Benitez LPN - Fully Assessed Reason for Visit: Future Appointment [256] Prescriptions as of 07/06/2023 - atorvastatin (LIPITOR) 40 mg tablet Take 1 tablet by mouth once daily. - albuterol HFA (PROVENTIL HFA, VENTOLIN HFA) 90 mcg/actuation inhaler Inhale 2 Puffs as instructed every 4 hours as needed for wheezing/shortness of breath. Patient requests VENTOLIN please. With spacer please. - gabapentin (NEURONTIN) 600 mg tablet Take 1 tablet by mouth three times a day for 180 days. - cyclobenzaprine (FLEXERIL) 10 mg tablet Take 1 tablet by mouth three times a day as needed for muscle spasm. - fluticasone (FLONASE) 50 mcg/actuation nasal spray Use 2 Sprays in each nostril once daily. Rinse mouth after use. - FLUoxetine (PROZAC) 40 mg capsule Take 1 capsule by mouth two times a day. - metoprolol succinate ER (TOPROL XL) 25 mg 24 hr tablet Take 1 tablet by mouth once daily. - omeprazole (PRILOSEC) 40 mg capsule Take 40 mg by mouth. - acetaminophen (TYLENOL EXTRA STRENGTH) 500 mg tablet Take 2 tablets by mouth every 6 hours as needed for pain. Problem List As Of Date 06/30/2023 Noted Resolved Depression, major [F32.9] 04/23/2010 Emphysema/COPD (HCC) [J43.9] 04/23/2010 Cigarette smoker [F17.210] 05/05/2010 Post-traumatic stress disorder [F43.10] 06/03/2010 Complicated grief [F43.21] 06/23/2011 02/02/2021 Anxiety disorder [F41.9] 06/23/2011 Hip pain [M25.559] 02/07/2013 01/11/2022 Hot flashes [R23.2] 02/28/2013 02/27/2021 RSD (reflex sympathetic dystrophy) [G90.50] 03/28/2013 06/27/2023 Fibromyalgia [M79.7] 03/28/2013 Inflammatory polyarthropathy (HCC) [M06.4] 03/28/2013 01/11/2022 NO SHOW [259490] 09/04/2014 12/10/2015 Nightmares associated with chronic post-traumat* 8 06/27/2023 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] 02/27/2021 Impaired glucose metabolism [R73.09] 02/27/2021 Left shoulder pain [M25.512] 05/08/2021 06/27/2023 Cervicalgia [M54.2] 05/08/2021 06/27/2023 Cervical spondylosis without myelopathy [M47.81*09/16/2021 Post laminectomy syndrome [M96.1] 01/11/2022 Hyperlipidemia [E78.5] 01/11/2022 Thrombocytosis, unspecified [D75.839] 01/23/2013 Encounter Status:Closed by NICOLETTE CASTANEDA on 07/06/23 Normal [facility] BARBAR[facility] HERNANDEZ ([id number]) 1965 F [facility] Date Time Provider Department 06/29/23 PAOLO GIRARD INTMWS During your visit today, we recorded the following information about you: Yancy Harris LPN 06/29/2023 8:46 AM Signed Patient calling for results of recent lab work. States she is very concerned about them. Please advise. Paolo Girard MD 06/29/2023 10:55 PM Signed 1) Cholesterol not better. I recommend increasing Lipitor to 40 mg at bedtime. If agreeable, I will send prescription. 2) Elevated platelets, chronic for years and stable. Nely referred her to hematology last year but appointment was cancelled. She should consider rescheduling that consult. 3) Rest of labs are normal. Diann Benitez LPN 06/30/2023 9:22 AM Signed Dung notified of below results/recommendation s, verbalized understanding. Patient just picked up RX for Atorvastatin/Lipitor 20mg, will double to equal 40mg, asking for new RX to go to [facility]. Dung will call to reschedule hematology consult. Diann Benitez LPN Allergies As of Date: 06/29/2023 Noted Allergy Reaction CORTISONE 08/14/2014 4 - Hives LATEX, NATURAL RUBBER 04/23/2010 2 - Rash PENICILLINS 12/21/2004 4 - Hives IV CONTRAST (IODINE) 09/16/2021 14 - Other: See Comments Comments: Patient reports she has had reactions to contrast on occasion, not consistently, and no specific reaction was noted MELOXICAM 08/13/2021 8 - GI Upset ENTEX (PHENYLEPHRINE-GUAIFEN ESIN) 01/04/2005 5 - Intolerance NAPROSYN (NAPROXEN) 12/21/2004 2 - Rash Date Reviewed: 06/27/2023 Reviewed by: Diann Benitez LPN - Fully Assessed Reason for Visit: Results [95] Visit Diagnosis:Hyperlipidem ia, unspecified hyperlipidemia type [E78.5] Order(s):atorvastatin (LIPITOR) 40 mg tabletTake 1 tablet by mouth once daily.Disp: 30 tabletRfl: 5 Prescriptions as of 07/01/2023 - atorvastatin (LIPITOR) 40 mg tablet Take 1 tablet by mouth once daily. - albuterol HFA (PROVENTIL HFA, VENTOLIN HFA) 90 mcg/actuation inhaler Inhale 2 Puffs as instructed every 4 hours as needed for wheezing/shortness of breath. Patient requests VENTOLIN please. With spacer please. - gabapentin (NEURONTIN) 600 mg tablet Take 1 tablet by mouth three times a day for 180 days. - cyclobenzaprine (FLEXERIL) 10 mg tablet Take 1 tablet by mouth three times a day as needed for muscle spasm. - fluticasone (FLONASE) 50 mcg/actuation nasal spray Use 2 Sprays in each nostril once daily. Rinse mouth after use. - FLUoxetine (PROZAC) 40 mg capsule Take 1 capsule by mouth two times a day. - metoprolol succinate ER (TOPROL XL) 25 mg 24 hr tablet Take 1 tablet by mouth once daily. - omeprazole (PRILOSEC) 40 mg capsule Take 40 mg by mouth. - acetaminophen (TYLENOL EXTRA STRENGTH) 500 mg tablet Take 2 tablets by mouth every 6 hours as needed for pain. Problem List As Of Date 06/29/2023 Noted Resolved Depression, major [F32.9] 04/23/2010 Emphysema/COPD (HCC) [J43.9] 04/23/2010 Cigarette smoker [F17.210] 05/05/2010 Post-traumatic stress disorder [F43.10] 06/03/2010 Complicated grief [F43.21] 06/23/2011 02/02/2021 Anxiety disorder [F41.9] 06/23/2011 Hip pain [M25.559] 02/07/2013 01/11/2022 Hot flashes [R23.2] 02/28/2013 02/27/2021 RSD (reflex sympathetic dystrophy) [G90.50] 03/28/2013 06/27/2023 Fibromyalgia [M79.7] 03/28/2013 Inflammatory polyarthropathy (HCC) [M06.4] 03/28/2013 01/11/2022 NO SHOW [252935] 09/04/2014 12/10/2015 Nightmares associated with chronic post-traumat* 8 06/27/2023 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 Medications Discontinued During This Encounter Prescriptions - atorvastatin (LIPITOR) 20 mg tablet (Discontinued) Take 1 tablet by mouth once daily. Encounter Status:Closed by NELY SCHULER on 07/01/23 Normal [facility] CBC panel Auto (Bld)on 06-26 Erythrocyte distribution width (RBC) [Ratio] 13.0 % 11.5 - 15.0 % [facility] Hematocrit (Bld) [Volume fraction] 40.7 % 36.0 - 46.0 % [facility] Hemoglobin (Bld) [Mass/Vol] 12.8 g/dL 11.5 - 15.5 g/dL [facility] MCH (RBC) [Entitic mass] 30.4 pg 26.0 - 34.0 pg [facility] MCHC (RBC) [Mass/Vol] 31.4 g/dL 30.5 - 36.0 g/dL [facility] MCV (RBC) [Entitic vol] 96.7 fL 80.0 - 100.0 fL [facility] Nucleated RBC (Bld) [#/Vol] <0.01 k/uL [facility] Platelet mean volume (Bld) [Entitic vol] 8.6 fL Low 9.0 - 12.7 fL [facility] Platelets (Bld) [#/Vol] 550 10*3/uL High 150 - 400 k/uL [facility] RBC (Bld) [#/Vol] 4.21 10*6/uL 3.90 - 5.2 0 m/uL [facility] WBC (Bld) [#/Vol] 10.70 10*3/uL 3.70 - 11 .00 k/uL [facility] Erythrocyte distribution width (RBC) [Ratio] 13.0 % Normal 11.5-15.0 [facility] Comment on above: Order Comment: Speci men Type: BLOOD SPECIMENOrdering Facility: [facility] Address: [address] [place] [address] Performed By: #### 5 8410-2 ####[facility] LABCLIA [id number] [place] [address] [place] Hematocrit (Bld) [Volume fraction] 40.7 % Normal 36.0-46.0 [facility] Comment on above: Order Comment: Speci men Type: BLOOD SPECIMENOrdering Facility: [facility] Address: [address] [place] [address] Performed By: #### 5 8410-2 ####[facility] LABCLIA [id number] [place] [address] [place] Hemoglobin (Bld) [Mass/Vol] 12.8 g/dL Normal 11.5-15.5 [facility] Comment on above: Order Comment: Speci men Type: BLOOD SPECIMENOrdering Facility: [facility] Address: [address] [place] [address] Performed By: #### 5 8410-2 ####[facility] LABCLIA [id number] [place] [address] [place] MCH (RBC) [Entitic mass] 30.4 pg Normal 26.0-34.0 [facility] Comment on above: Order Comment: Speci men Type: BLOOD SPECIMENOrdering Facility: [facility] Address: [address] [place] [address] Performed By: #### 5 8410-2 ####[facility] LABCLIA [id number] [place] [address] [place] MCHC (RBC) [Mass/Vol] 31.4 g/dL Normal 30.5-36.0 [facility] Comment on above: Order Comment: Speci men Type: BLOOD SPECIMENOrdering Facility: [facility] Address: [address] [place] [address] Performed By: #### 5 8410-2 ####[facility] LABIA [id number] [place] [address] [place] MCV (RBC) [Entitic vol] 96.7 fL Normal 80.0-100.0 [facility] Comment on above: Order Comment: Speci men Type: BLOOD SPECIMENOrdering Facility: [facility] Address: [address] [place] [address] Performed By: #### 5 8410-2 ####[facility] [id number] [place] [address] [place] Nucleated RBC (Bld) [#/Vol] 10*3/uL Normal <0.01 [facility] Comment on above: Order Comment: Speci men Type: BLOOD SPECIMENOrdering Facility: [facility] Address: [address] [place] [address] Performed By: #### 5 8410-2 ####[facility] [id number] [place] [address] [place] Platelet mean volume (Bld) [Entitic vol] 8.6 fL Low 9.0-12.7 [facility] Comment on above: Order Comment: Speci men Type: BLOOD SPECIMENOrdering Facility: [facility] Address: [address] [place] [address] Performed By: #### 5 8410-2 ####[facility] LABIA [id number] [place] [address] [place] Platelets (Bld) [#/Vol] 550 10*3/uL High 150-400 [facility] Comment on above: Order Comment: Speci men Type: BLOOD SPECIMENOrdering Facility: [facility] Address: [address] [place] [address] Performed By: #### 5 8410-2 ####[facility] LABCLIA [id number] [place] [address] [place] RBC (Bld) [#/Vol] 4.21 10*6/uL Normal 3.90-5.20 [facility] Comment on above: Order Comment: Speci men Type: BLOOD SPECIMENOrdering Facility: [facility] Address: [address] [place] [address] Performed By: #### 5 8410-2 ####[facility] LABCLIA [id number] [place] [address] [place] WBC (Bld) [#/Vol] 10.70 10*3/uL Normal 3.70-11.00 [facility] Comment on above: Order Comment: Speci men Type: BLOOD SPECIMENOrdering Facility: [facility] Address: [address] [place] [address] Performed By: #### 5 8410-2 ####[facility] LABCLIA [id number] [place] [address] [place] CNOVon 06-27-2023 CNOV Office Visit (INTMWS ) BARBARA HERNANDEZ ([id number]) 1965 F C[facility] Date Time Provider Department 06/27/23 2:00 PM PAOLO GIRARD INTMWS During your visit today, we recorded the following information about you: Temperature Pulse Blood pressure Weight 97.8 degrees 96/minute 108/64 42.5 kg Paolo Girard MD 06/27/2023 3:00 PM Signed This note was created using myOrderriter. Subjective Patient presents with: F/U 6 months Barbara Hernandez is a 57 year old female. She complained of left ear pain and jaw popping for one year. She was seen for this 6 months ago, as well as in urgent care. She had weight loss which stabilized. Abnormal xray was followed with a CT scan of the chest done at [facility] with no mass. She mainly needed a letter for her fur sorter pet dog to be permitted to stay with her. She was dealing with the of her good friend from cancer and felt more depressed. 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 She was not sure it was helping. Review of Systems Constitutional: Positive for fatigue. Negative for unexpected weight change. HENT: Positive for ear pain. Negative for ear discharge and hearing loss. Respiratory: Negative for cough and shortness of breath. Cardiovascular: Negative. Gastrointestinal: Negative. Skin: Negative for rash. ACTIVE PROBLEM LIST Depression, Major Emphysema/COPD (HCC) Cigarette Smoker Post-Traumatic Stress Disorder Anxiety Disorder Fibromyalgia Traumatic Coccydynia Impaired Glucose Metabolism Cervical Spondylosis Without Myelopathy Post Laminectomy Syndrome Hyperlipidemia Social History Tobacco Use Smoking status: Every Day Packs/day: 1.00 Years: 20.00 Additional pack years: 0.00 Total pack years: 20.00 Types: Cigarettes Smokeless tobacco: Never Tobacco comments: Down to a couple cigarettes a day Vaping Use Vaping Use: Never used Substance Use Topics Alcohol use: Not Currently Comment: quit drinking 01/25/18 Drug use: No Current Outpatient Medications Medication Sig fluticasone (FLONASE) 50 mcg/actuation nasal spray Use 2 Sprays in each nostril once daily. Rinse mouth after use. albuterol HFA (PROVENTIL HFA, VENTOLIN HFA) 90 mcg/actuation inhaler Inhale 2 Puffs as instructed every 4 hours as needed for wheezing/shortness of breath. Patient requests VENTOLIN please. With spacer please. FLUoxetine (PROZAC) 40 mg capsule Take 1 capsule by mouth two times a day. doxycycline (VIBRA-TABS) 100 mg tablet Take 1 tablet by mouth two times a day. gabapentin (NEURONTIN) 600 mg tablet Take 1 tablet by mouth three times a day for 180 days. metoprolol succinate ER (TOPROL XL) 25 mg 24 hr tablet Take 1 tablet by mouth once daily. cyclobenzaprine (FLEXERIL) 10 mg tablet Take 1 tablet by mouth three times daily as needed for muscle spasm. atorvastatin (LIPITOR) 20 mg tablet Take 1 tablet by mouth once daily. omeprazole (PRILOSEC) 40 mg capsule Take 40 mg by mouth. acetaminophen (TYLENOL EXTRA STRENGTH) 500 mg tablet Take 2 tablets by mouth every 6 hours as needed for pain. loratadine (CLARITIN) 10 mg tablet Take 1 tablet by mouth once daily. (Patient not taking: Reported on 06/27/2023) No current facility-administered medications for this visit. Objective Blood Pressure 108/64 (BP Site: Left Arm, BP Position: Sitting, BP Cuff Size: Large Adult) Pulse 96 Temperature 36.6 ?C (97.8 ?F) (Temporal) Weight 42.5 kg (93 lb 12.8 oz) Last Menstrual Period 08/06/2014 (LMP Unknown) Oxygen Saturation 97% Body Mass Index 15.14 kg/m? Physical Exam Constitutional: Appearance: She is underweight. She is not ill-appearing. HENT: Head: Normocephalic. Right Ear: Tympanic membrane, ear canal and external ear normal. Left Ear: Tympanic membrane, ear canal and external ear normal. Mouth/Throat: Mouth: Mucous membranes are moist. Pharynx: Oropharynx is clear. Comments: Left TMJ tender, with crepitus. Cardiovascular: Rate and Rhythm: Normal rate and regular rhythm. Heart sounds: No murmur heard. No gallop. Pulmonary: Effort: No respiratory distress. Breath sounds: No wheezing or rales. Musculoskeletal: Right lower leg: No edema. Left lower leg: No edema. Lymphadenopathy: Cervical: No cervical adenopathy. Skin: Findings: No lesion or rash. Neurological: Mental Status: She is alert. Psychiatric: Mood and Affect: Mood normal. Behavior: Behavior normal. Assessment and Plan 1. Generalized anxiety disorder - ICD9: 300.02, ICD10: F41.1 (primary diagnosis) Letter written. 2. Post laminectomy syndrome - ICD9: 722.80, ICD10: M96.1 - GABAPENTIN 600 MG TABLET - CYCLOBENZAPRINE 10 MG TABLET - COMPLETE BLOOD COUNT 3. Hyperlipidemia, unspecified hyperlipidemia type - ICD9: 272.4, ICD10: E78.5 - Control undetermined, due for labs - ATORVASTATIN 20 MG TABLET - (more content not included)... Normal [facility] Comprehensive metabolic 2000 panelon 06-27-2023 Albumin [Mass/Vol] 4.3 g/dL Normal 3.9-4.9 [facility] Comment on above: Order Comment: Speci men Type: BLOOD SPECIMENOrdering Facility: [facility] Address: [facility] [place] [address] Performed By: #### 2 4323-8, LIPNF ####[facility] LABCLIA [id number] [place] [address] [place] ALP [Catalytic activity/Vol] 93 U/L Normal 34-123 [facility] Comment on above: Order Comment: Speci men Type: BLOOD SPECIMENOrdering Facility: [facility] Address: [address] [place] [address] Performed By: #### 2 4323-8, LIPNF ####[facility] LABCLIA [id number] [place] [address] [place] ALT [Catalytic activity/Vol] 19 U/L Normal 7-38 [facility] Comment on above: Order Comment: Speci men Type: BLOOD SPECIMENOrdering Facility: [facility] Address: [address] [place] [address] Performed By: #### 2 4323-8, LIPNF ####[facility] LABCLIA [id number] [place] [address] [place] Anion gap [Moles/Vol] 13 mmol/L Normal 9-18 [facility] Comment on above: Order Comment: Speci men Type: BLOOD SPECIMENOrdering Facility: [facility] Address: [address] [place] [address] Performed By: #### 2 4323-8, LIPNF ####[facility] LABCLIA [id number] [place] [address] [place] AST [Catalytic activity/Vol] 24 U/L Normal 13-35 [facility] Comment on above: Order Comment: Speci men Type: BLOOD SPECIMENOrdering Facility: [facility] Address: [address] [place] [address] Performed By: #### 2 4323-8, LIPNF ####[facility] LABCLIA [id number] [place] [address] [place] Bilirubin [Mass/Vol] 0.2 mg/dL Normal 0.2-1.3 [facility] Comment on above: Order Comment: Speci men Type: BLOOD SPECIMENOrdering Facility: [facility] Address: [address] [place] [address] Performed By: #### 2 4323-8, LIPNF ####[facility] LABCLIA [id number] [place] [address] [place] Calcium [Mass/Vol] 9.7 mg/dL Normal 8.5-10.2 [facility] Comment on above: Order Comment: Speci men Type: BLOOD SPECIMENOrdering Facility: [facility] Address: [address] [place] [address] Performed By: #### 2 4323-8, LIPNF ####[facility] LABCLIA [id number] [place] [address] [place] Chloride [Moles/Vol] 100 mmol/L Normal 97-105 [facility] Comment on above: Order Comment: Speci men Type: BLOOD SPECIMENOrdering Facility: [facility] Address: [address] [place] [address] Performed By: #### 2 4323-8, LIPNF ####[facility] LABCLIA [id number] [place] [address] [place] CO2 [Moles/Vol] 24 mmol/L Normal 22-30 [facility] Comment on above: Order Comment: Speci men Type: BLOOD SPECIMENOrdering Facility: [facility] Address: [address] [place] [address] Performed By: #### 2 4323-8, LIPNF ####[facility] LABIA [id number] [place] [address] [place] Creatinine [Mass/Vol] 0.71 mg/dL Normal 0.58-0.96 [facility] Comment on above: Order Comment: Speci men Type: BLOOD SPECIMENOrdering Facility: [facility] Address: [address] [place] [address] Performed By: #### 2 4323-8, LIPNF ####[facility] LABIA [id number] [place] [address] [place] Creatinine and Glomerular filtration rate.predicted panel (S/P/Bld) 99 mL/min/1.73m??? Normal >=60 [facility] Comment on above: Order Comment: Speci men Type: BLOOD SPECIMENOrdering Facility: [facility] Address: [address] [place] [address] Result Comment: Alicia mated Glomerular Filtration Rate (eGFR) is calculated using the 2020 CKD-EPI creatinine equation. This equation utilizes serum creatinine, sex, and age as parameters. The creatinine assay has traceable calibration to isotope dilution-mass spectrometry. Refer to KDIGO guidelines for clinical interpretation. In patients with unstable renal function, e.g. those with acute kidney injury, the eGFR may not accurately reflect actual GFR. Performed By: #### 2 4323-8, LIPNF ####[facility] LABIA [id number] [place] [address] [place] Glucose [Mass/Vol] 94 mg/dL Normal 74-99 [facility] Comment on above: Order Comment: Speci men Type: BLOOD SPECIMENOrdering Facility: [facility] Address: [address] [place] [address] Result Comment: The [place] Diabetes Association (ADA) provides guidance for cutoff values for fasting glucose and random glucose. The ADA defines fasting as no caloric intake for at least 8 hours. Fasting plasma glucose results between 100 to 125 mg/dL indicate increased risk for diabetes (prediabetes). Fasting plasma glucose results greater than or equal to 126 mg/dL meet the criteria for diagnosis of diabetes. In the absence of unequivocal hyperglycemia, results should be confirmed by repeat testing. In a patient with classic symptoms of hyperglycemia or hyperglycemic crisis, random plasma glucose results greater than or equal to 200 mg/dL meet the criteria for diagnosis of diabetes. Reference: Standards of Medical Care in Diabetes 2016, [place] [employer]. Diabetes Care. 2016.39(Suppl 1). Performed By: #### 2 4323-8, LIPNF ####[facility] LABCLIA [id number] [place] [address] [place] Potassium [Moles/Vol] 4.7 mmol/L Normal 3.7-5.1 [facility] Comment on above: Order Comment: Speci men Type: BLOOD SPECIMENOrdering Facility: [facility] Address: [address] [place] [address] Performed By: #### 2 4323-8, LIPNF ####[facility] LABCLIA [id number] [place] [address] [place] Protein [Mass/Vol] 6.9 g/dL Normal 6.3-8.0 [facility] Comment on above: Order Comment: Speci men Type: BLOOD SPECIMENOrdering Facility: [facility] Address: [address] [place] [address] Performed By: #### 2 4323-8, LIPNF ####[facility] LABCLIA [id number] [place] [address] [place] Sodium [Moles/Vol] 137 mmol/L Normal 136-144 [facility] Comment on above: Order Comment: Speci men Type: BLOOD SPECIMENOrdering Facility: [facility] Address: [address] [place] [address] Performed By: #### 2 4323-8, LIPNF ####[facility] LABCLIA [id number] [place] [address] [place] Urea nitrogen [Mass/Vol] 13 mg/dL Normal 7-21 [facility] Comment on above: Order Comment: Speci men Type: BLOOD SPECIMENOrdering Facility: [facility] Address: [address] [place] [address] Performed By: #### 2 4323-8, LIPNF ####[facility] LABCLIA [id number] [place] [address] [place] LIPID PANEL, NONFASTINGon Cholesterol [Mass/Vol] 240 mg/dL High <200 [facility] Comment on above: Order Comment: Speci men Type: BLOOD SPECIMENOrdering Facility: [facility] Address: [address] [place] [address] Result Comment: <200 mg/dL, Desirable 200-239 mg/dL, Borderline high >239 mg/dL, High Performed By: #### 2 4323-8, LIPNF ####[facility] LABCLIA [id number] [place] [address] [place] HDL CHOLESTEROL, NF 71 mg/dL Normal >39 [facility] Comment on above: Order Comment: Speci men Type: BLOOD SPECIMENOrdering Facility: [facility] Address: [address] [place] [address] Result Comment: 40-5 9 mg/dL, Acceptable >59 mg/dL, High: Negative risk factor for coronary heart disease <40 mg/dL, Low: Positive risk factor for coronary heart disease Performed By: #### 2 4323-8, LIPNF ####[facility] LABCLIA [id number] [place] [address] [place] LDL CHOLESTEROL, NF 147 mg/dL High <100 [facility] Comment on above: Order Comment: Speci men Type: BLOOD SPECIMENOrdering Facility: [facility] Address: [address] [place] [address] Result Comment: <100 mg/dL, Optimal 100-129 mg/dL, Near optimal/above optimal 130-159 mg/dL, Borderline high 160-189 mg/dL, High >189 mg/dL, Very high Secondary prevention optimal LDL Cholesterol levels are recommended to be < 70 mg/dL Performed By: #### 2 4323-8, LIPNF ####[facility] LABCLIA [id number] [place] [address] [place] LDL/HDL RATIO, NF 2.07 mg/dL Normal <2.54 [facility] Comment on above: Order Comment: Jaii blaire Type: BLOOD SPECIMENOrdering Facility: [facility] Address: [address] [place] [address] Result Comment: Refe rence: 1. National Cholesterol Education Program ATP III Guideline At-A-Glance Quick Desk Reference: National Heart, Lung, and Blood [place]. National Institutes of Health. 2001: NIH Publication No. 01-3305. 2. An International Atherosclerosis Society position paper: global recommendations for the management of dyslipidemia: executive summary, Atherosclerosis. 2014: 232(2):410-413. Performed By: #### 2 4323-8, LIPNF ####[facility] LABIA [id number] [place] [address] [place] NON HDL CHOL, NF 169 mg/dL High <130 [facility] Comment on above: Order Comment: Alexandra rudd Type: BLOOD SPECIMENOrdering Facility: [facility] Address: [address] [place] [address] Result Comment: <130 mg/dL, Optimal 130-159 mg/dL, Near optimal/above optimal 160-189 mg/dL, Borderline high 190-219 mg/dL, High >219 mg/dL, Very high Secondary prevention optimal non HDL Cholesterol levels are recommended to be <100 mg/dL Performed By: #### 2 4323-8, LIPNF ####[facility] LABCLIA [id number] [place] [address] [place] T CHOL/HDL RATIO NF 3.38 mg/dL Normal <5.10 [facility] Comment on above: Order Comment: Alexandra rudd Type: BLOOD SPECIMENOrdering Facility: [facility] Address: [address] [place] [address] Performed By: #### 2 4323-8, LIPNF ####[facility] LABCLIA [id number] [place] [address] [place] TRIGLYCERIDES, NF 110 mg/dL Normal <150 [facility] Comment on above: Order Comment: Speci men Type: BLOOD SPECIMENOrdering Facility: [facility] Address: [address] [place] [address] Result Comment: <150 mg/dL, Normal 150-199 mg/dL, Borderline high 200-499 mg/dL, High >499 mg/dL, Very high Performed By: #### 2 4323-8, LIPNF ####[facility] LABCLIA [id number] [place] [address] [place] VLDL CHOLESTEROL, NF 22 mg/dL Normal <30 [facility] Comment on above: Order Comment: Speci men Type: BLOOD SPECIMENOrdering Facility: [facility] Address: [address] [place] [address] Performed By: #### 2 4323-8, LIPNF ####[facility] LABCLIA [id number] [place] [address] [place] CNOVon 06-05-2023 CNOV Office Visit (UCWSTR ) BARBARA HERNANDEZ ([id number]) 1965 F T Date Time Provider Department 06/05/23 2:00 PM [facility] During your visit today, we recorded the following information about you: Temperature Pulse Respiration Blood pressure 97.8 degrees 90/minute 18/minute 126/73 Weight 44 kg Annie Whitfield APRN.HOME CARE NURSE 06/05/2023 2:54 PM Signed This note was created using myOrderriter. Subjective Barbara Hernandez is a 57 year old female. Patient reports she has had ear pain for a long time . Has seen PCP for issue and has scheduled appointments with ENT but other things always come up per patient and she has had to cancel ENT appointments. Patient reports pain is worse after washing hair so I try to only wash my hair every other day Patient denies sinus issues. Ear Pain Review of Systems HENT: Positive for ear pain. Objective BP 126/73 Pulse 90 Temp 36.6 ?C (97.8 ?F) Resp 18 Wt 44 kg (97 lb) LMP 08/06/2014 (LMP Unknown) SpO2 95% BMI 15.66 kg/m? Physical Exam HENT: Right Ear: Hearing, tympanic membrane, ear canal and external ear normal. No middle ear effusion. There is no impacted cerumen. No mastoid tenderness. Left Ear: Hearing, tympanic membrane, ear canal and external ear normal. No middle ear effusion. There is no impacted cerumen. No mastoid tenderness. Ears: Comments: Both ears appear to be normal. Patient reports pain is in inner ear behind ear lobes by mandible. PAST MEDICAL HISTORY Diagnosis Date Anxiety disorder 06/23/2011 Chronic obstructive pulmonary disease (COPD) ([facility]) Complicated grief 06/23/2011 Depression Depression, major 04/23/2010 Emphysema/COPD ([facility]) 04/23/2010 Fibromyalgia 03/28/[address] Bergman Hot flashes 02/28/2013 Inflammatory polyarthropathy ([facility]) 03/28/[address] Bergman Marcia - Freedman tear 09/2010 received transfusion Post-traumatic stress disorder 06/03/2010 RSD (reflex sympathetic dystrophy) 03/28/2013 Right upper extremity screening for Type 2 diabetes mellitus without complication ([facility]) 07/16/2016 PAST SURGICAL HISTORY Procedure Laterality Date ESOPHAGOGASTRODUODENOS COPY TRANSORAL DIAGNOSTIC 10/07/2010 EGD [facility] inpt n /H-pylori negative LAMINOTOMY (HEMILAMINECTOMY), WITH DECOMPRESSION OF NERVE ROOT(S) Right 03/12/2020 L5-S1 discectomy, [facility], Dr. Bety Spicer LIG/TRNSXJ FLP TUBE ABDL/VAG APPR UNI/BI Tubal ligation PAST SURGICAL HISTORY OF 07/24/2018 Complete hysterectomy PAST SURGICAL HISTORY OF Right carpal tunnel ALLERGIES Cortisone; Latex, Natural Rubber; Penicillins; Iv Contrast [Iodine]; Meloxicam; Entex [Phenylephrine-Guaifen esin]; and Naprosyn [Naproxen] MEDICATIONS loratadine (CLARITIN) 10 mg tablet Take 1 tablet by mouth once daily. fluticasone (FLONASE) 50 mcg/actuation nasal spray Use 2 Sprays in each nostril once daily. Rinse mouth after use. albuterol HFA (PROVENTIL HFA, VENTOLIN HFA) 90 mcg/actuation inhaler Inhale 2 Puffs as instructed every 4 hours as needed for wheezing/shortness of breath. Patient requests VENTOLIN please. With spacer please. FLUoxetine (PROZAC) 40 mg capsule Take 1 capsule by mouth two times a day. doxycycline (VIBRA-TABS) 100 mg tablet Take 1 tablet by mouth two times a day. gabapentin (NEURONTIN) 600 mg tablet Take 1 tablet by mouth three times a day for 180 days. metoprolol succinate ER (TOPROL XL) 25 mg 24 hr tablet Take 1 tablet by mouth once daily. cyclobenzaprine (FLEXERIL) 10 mg tablet Take 1 tablet by mouth three times daily as needed for muscle spasm. atorvastatin (LIPITOR) 20 mg tablet Take 1 tablet by mouth once daily. omeprazole (PRILOSEC) 40 mg capsule Take 40 mg by mouth. acetaminophen (TYLENOL EXTRA STRENGTH) 500 mg tablet Take 2 tablets by mouth every 6 hours as needed for pain. FAMILY HISTORY Problem Relation Age of Onset Diabetes Mother Hypertension Mother Cancer Mother Coronary Artery Disease Father myesthenia gravis Heart Father By-pass COPD Brother other (Smoker) Brother Social History Tobacco Use Smoking status: Every Day Packs/day: 1.00 Years: 20.00 Additional pack years: 0.00 Total pack years: 20.00 Types: Cigarettes Smokeless tobacco: Never Tobacco comments: Down to a couple cigarettes a day Vaping Use Vaping Use: Never used Substance Use Topics Alcohol use: Not Currently Comment: quit drinking 01/25/18 Drug use: No ASSESSMENT/PLAN: 1. Congestion of both ears - ICD9: 388.8, ICD10: H93.8X3 - Encouraged follow up with ENT - Patient prescribed Flonase to help with congestion, chart reports history of cortisone allergy (hives) but has recently tolerated prednisone - LORATADINE 10 MG TABLET - FLUTICASONE PROPIONATE 50 MCG/ACTUATION NASAL SPRAY,SUSPENSION Prescription instructions reviewed with patient. Potential red flag symptoms discussed with the patient. R (more content not included)... Normal [facility] KALEIGHNon 01-18-2023 KALEIGHN Telephone (HEMAWS) BARBARA HERNANDEZ ([id number]) 1965 F CHT Date Time Provider Department 01/18/23 MAVERICK MACDONALD During your visit today, we recorded the following information about you: Mary Sullivan 01/18/2023 8:22 AM Signed Patient called requesting hematology appointment can be reached at [phone] Gladis Villarreal 01/18/2023 9:12 AM Signed Please review and advise CONSULT TO HEMATOLOGY Status: Needs Scheduling Requested appt date: Authorizing: Nely Flores APRN.CNP in [facility] Referral: [id number] (Authorized) Expires: 01/12/2024 Priority: Routine Diagnosis: Thrombocytosis [D75.839] Night sweats [R61] Unintentional weight loss [R63.4] Shanelle Albert LPN 01/18/2023 11:27 AM Addendum See previous telephone note dated 01/12 BRYANNA Valverde Sherrie 05/18/2023 11:08 AM Signed Patient called in and cancelled consult to hematology and CT scan declined to reschedule stated she does not feel well, no ride and is in the hospital. Allergies As of Date: 01/18/2023 Noted Allergy Reaction CORTISONE 08/14/2014 4 - Hives LATEX, NATURAL RUBBER 04/23/2010 2 - Rash PENICILLINS 12/21/2004 4 - Hives IV CONTRAST (IODINE) 09/16/2021 14 - Other: See Comments Comments: Patient reports she has had reactions to contrast on occasion, not consistently, and no specific reaction was noted MELOXICAM 08/13/2021 8 - GI Upset ENTEX (PHENYLEPHRINE-GUAIFEN ESIN) 01/04/2005 5 - Intolerance NAPROSYN (NAPROXEN) 12/21/2004 2 - Rash Date Reviewed: 01/10/2023 Reviewed by: Nely Flores APRN.HOME CARE NURSE - Fully Assessed Reason for Visit: Appointment [186] Prescriptions as of 05/18/2023 - albuterol HFA (PROVENTIL HFA, VENTOLIN HFA) 90 mcg/actuation inhaler Inhale 2 Puffs as instructed every 4 hours as needed for wheezing/shortness of breath. Patient requests VENTOLIN please. With spacer please. - FLUoxetine (PROZAC) 40 mg capsule Take 1 capsule by mouth two times a day. - doxycycline (VIBRA-TABS) 100 mg tablet Take 1 tablet by mouth two times a day. - gabapentin (NEURONTIN) 600 mg tablet Take 1 tablet by mouth three times a day for 180 days. - metoprolol succinate ER (TOPROL XL) 25 mg 24 hr tablet Take 1 tablet by mouth once daily. - cyclobenzaprine (FLEXERIL) 10 mg tablet Take 1 tablet by mouth three times daily as needed for muscle spasm. - atorvastatin (LIPITOR) 20 mg tablet Take 1 tablet by mouth once daily. - omeprazole (PRILOSEC) 40 mg capsule Take 40 mg by mouth. - acetaminophen (TYLENOL EXTRA STRENGTH) 500 mg tablet Take 2 tablets by mouth every 6 hours as needed for pain. Problem List As Of Date 01/18/2023 Noted Resolved Depression, major [F32.9] 04/23/2010 Emphysema/COPD (HCC) [J43.9] 04/23/2010 Cigarette smoker [F17.210] 05/05/2010 Post-traumatic stress disorder [F43.10] 06/03/2010 Complicated grief [F43.21] 06/23/2011 02/02/2021 Anxiety disorder [F41.9] 06/23/2011 Hip pain [M25.559] 02/07/2013 01/11/2022 Hot flashes [R23.2] 02/28/2013 02/27/2021 RSD (reflex sympathetic dystrophy) [G90.50] 03/28/2013 Fibromyalgia [M79.7] 03/28/2013 Inflammatory polyarthropathy (HCC) [M06.4] 03/28/2013 01/11/2022 NO SHOW [276468] 09/04/2014 12/10/2015 Nightmares associated with chronic post-traumat* 8 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] 02/27/2021 Impaired glucose metabolism [R73.09] 02/27/2021 Left shoulder pain [M25.512] 05/08/2021 Cervicalgia [M54.2] 05/08/2021 Cervical spondylosis without myelopathy [M47.81*09/16/2021 Post laminectomy syndrome [M96.1] 01/11/2022 Hyperlipidemia [E78.5] 01/11/2022 Encounter Status:Closed by SHANELLE ALBERT on 01/18/23 [facility] 01-14-2023 CNPN Telephone (INTMWS) BARBARA HERNANDEZ ([id number]) 1965 F [facility] Date Time Provider Department 01/14/23 PAOLO GIRARD INTWS During your visit today, we recorded the following information about you: Kay Gaston RN 01/14/2023 2:00 PM Signed Hayder nurse with [facility] calling to update PCP. Hayder reports patient stated to him that if she had a gun she would kill herself . Hayder states pt does not have a gun and has no current plan. Hayder states he has notified the Police and they will complete a wellness check on patient. Victor Manuel states he needed to let PCP know. No call back needed. JAKE Boyd Victor H, MD 01/14/2023 5:34 PM Signed Schedule follow up appointment. Crisis hotline if worse. Sage Solomon Ma 01/15/2023 11:56 AM Signed TC to patient - she states that she is fine and is not going to hurt her self or anyone else and does not think that who she spoke with yesterday was listening to her. Patient declined scheduling an office visit at this time. Please review mammogram results that are scanned in. Pt states that she had her MRI done at [facility] and should be resulted Tuesday. Paolo Girard MD 01/16/2023 9:07 AM Signed Mammogram okay. MRI will be addressed by specialist. Sage Solomon Ma 01/17/2023 8:38 AM Signed Pt notified via [employer]. Allergies As of Date: 01/14/2023 Noted Allergy Reaction CORTISONE 08/14/2014 4 - Hives LATEX, NATURAL RUBBER 04/23/2010 2 - Rash PENICILLINS 12/21/2004 4 - Hives IV CONTRAST (IODINE) 09/16/2021 14 - Other: See Comments Comments: Patient reports she has had reactions to contrast on occasion, not consistently, and no specific reaction was noted MELOXICAM 08/13/2021 8 - GI Upset ENTEX (PHENYLEPHRINE-GUAIFEN ESIN) 01/04/2005 5 - Intolerance NAPROSYN (NAPROXEN) 12/21/2004 2 - Rash Date Reviewed: 01/10/2023 Reviewed by: Nely Flores APRN.HOME CARE NURSE - Fully Assessed Reason for Visit: Patient Update [1234] Prescriptions as of 01/17/2023 - FLUoxetine (PROZAC) 40 mg capsule Take 1 capsule by mouth once daily. - doxycycline (VIBRA-TABS) 100 mg tablet Take 1 tablet by mouth two times a day. - gabapentin (NEURONTIN) 600 mg tablet Take 1 tablet by mouth three times a day for 180 days. - metoprolol succinate ER (TOPROL XL) 25 mg 24 hr tablet Take 1 tablet by mouth once daily. - cyclobenzaprine (FLEXERIL) 10 mg tablet Take 1 tablet by mouth three times daily as needed for muscle spasm. - albuterol HFA (PROVENTIL HFA, VENTOLIN HFA) 90 mcg/actuation inhaler Inhale 2 Puffs as instructed every 4 hours as needed for wheezing/shortness of breath. Patient requests VENTOLIN please. With spacer please. - atorvastatin (LIPITOR) 20 mg tablet Take 1 tablet by mouth once daily. - omeprazole (PRILOSEC) 40 mg capsule Take 40 mg by mouth. - acetaminophen (TYLENOL EXTRA STRENGTH) 500 mg tablet Take 2 tablets by mouth every 6 hours as needed for pain. Problem List As Of Date 01/14/2023 Noted Resolved Depression, major [F32.9] 04/23/2010 Emphysema/COPD (HCC) [J43.9] 04/23/2010 Cigarette smoker [F17.210] 05/05/2010 Post-traumatic stress disorder [F43.10] 06/03/2010 Complicated grief [F43.21] 06/23/2011 02/02/2021 Anxiety disorder [F41.9] 06/23/2011 Hip pain [M25.559] 02/07/2013 01/11/2022 Hot flashes [R23.2] 02/28/2013 02/27/2021 RSD (reflex sympathetic dystrophy) [G90.50] 03/28/2013 Fibromyalgia [M79.7] 03/28/2013 Inflammatory polyarthropathy (HCC) [M06.4] 03/28/2013 01/11/2022 NO SHOW [[id number]] 09/04/2014 12/10/2015 Nightmares associated with chronic post-traumat* 8 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] 02/27/2021 Impaired glucose metabolism [R73.09] 02/27/2021 Left shoulder pain [M25.512] 05/08/2021 Cervicalgia [M54.2] 05/08/2021 Cervical spondylosis without myelopathy [M47.81*09/16/2021 Post laminectomy syndrome [M96.1] 01/11/2022 Hyperlipidemia [E78.5] 01/11/2022 Encounter Status:Closed by SAGE SOLOMON MA on 01/17/23 [facility] [place] 01-12-2023 KALEIGHN Telephone (FAMPWS) BARBARA HERNANDEZ ([id number]) 1965 F T Date Time Provider Department 01/12/23 NELY FLORES During your visit today, we recorded the following information about you: Mary Leone LPN 01/12/2023 10:28 AM Signed Pt calling for lab results from 01/10/23. Please respond to pt via Vis[employer]. Pt also wants it noted in her chart that she received another eviction notice, states provider is aware of what it going on with this AND just wants her to be aware she received another one. Nely Gaytan LPN, APRN.KALEIGH 01/12/2023 2:26 PM Signed Please let the patient know the rest of her labs were normal, no indication for cause of elevated platelets and WBC count. Due to her symptoms and persistent elevation recommend referral to rawhide trimmer for further evaluation Nely Flores APRN.Jacob Tariq LPN 01/12/2023 3:24 PM Signed Spoke with pt and information listed below given. Pt verbalizes understanding. Pt would like to see the rawhide trimmer, Routing to Hemaatology to review and call pt. PH: [phone]. Dinorah Schaffer LPN, LPN 01/13/2023 11:47 AM Signed Referral for thrombocytosis. Please advise. Maverick Crowell LPN, DO 01/13/2023 3:52 PM Signed Next new patient appointment time with either me or Dr. Ocasio. DO Debby Basilio Stephanie 01/13/2023 4:07 PM Signed ATC patient, but no answer and voicemail is full. Racheal Guardado Cai01/17/2023 3:31 PM Signed 2ND ATTEMPT: UNABLE TO LM DUE TO FULL VM 01/18/2023 2:53 PM Signed Spoke with pt and scheduled as directed Allergies As of Date: 01/12/2023 Noted Allergy Reaction CORTISONE 08/14/2014 4 - Hives LATEX, NATURAL RUBBER 04/23/2010 2 - Rash PENICILLINS 12/21/2004 4 - Hives IV CONTRAST (IODINE) 09/16/2021 14 - Other: See Comments Comments: Patient reports she has had reactions to contrast on occasion, not consistently, and no specific reaction was noted MELOXICAM 08/13/2021 8 - GI Upset ENTEX (PHENYLEPHRINE-GUAIFEN ESIN) 01/04/2005 5 - Intolerance NAPROSYN (NAPROXEN) 12/21/2004 2 - Rash Date Reviewed: 01/10/2023 Reviewed by: Nely Flores APRN.HOME CARE NURSE - Fully Assessed Reason for Visit: Results [95] Primary Visit Diagnosis:Thrombocytos is [D75.839] Other Visit Diagnoses:Night sweats [R61] Unintentional weight loss [R63.4] Order(s):CONSULT TO HEMATOLOGY [9014] Order #: [id number]: 1 FUTURE Prescriptions as of 01/18/2023 - FLUoxetine (PROZAC) 40 mg capsule Take 1 capsule by mouth once daily. - doxycycline (VIBRA-TABS) 100 mg tablet Take 1 tablet by mouth two times a day. - gabapentin (NEURONTIN) 600 mg tablet Take 1 tablet by mouth three times a day for 180 days. - metoprolol succinate ER (TOPROL XL) 25 mg 24 hr tablet Take 1 tablet by mouth once daily. - cyclobenzaprine (FLEXERIL) 10 mg tablet Take 1 tablet by mouth three times daily as needed for muscle spasm. - albuterol HFA (PROVENTIL HFA, VENTOLIN HFA) 90 mcg/actuation inhaler Inhale 2 Puffs as instructed every 4 hours as needed for wheezing/shortness of breath. Patient requests VENTOLIN please. With spacer please. - atorvastatin (LIPITOR) 20 mg tablet Take 1 tablet by mouth once daily. - omeprazole (PRILOSEC) 40 mg capsule Take 40 mg by mouth. - acetaminophen (TYLENOL EXTRA STRENGTH) 500 mg tablet Take 2 tablets by mouth every 6 hours as needed for pain. Problem List As Of Date 01/12/2023 Noted Resolved Depression, major [F32.9] 04/23/2010 Emphysema/COPD (HCC) [J43.9] 04/23/2010 Cigarette smoker [F17.210] 05/05/2010 Post-traumatic stress disorder [F43.10] 06/03/2010 Complicated grief [F43.21] 06/23/2011 02/02/2021 Anxiety disorder [F41.9] 06/23/2011 Hip pain [M25.559] 02/07/2013 01/11/2022 Hot flashes [R23.2] 02/28/2013 02/27/2021 RSD (reflex sympathetic dystrophy) [G90.50] 03/28/2013 Fibromyalgia [M79.7] 03/28/2013 Inflammatory polyarthropathy (HCC) [M06.4] 03/28/2013 01/11/2022 NO SHOW [435251] 09/04/2014 12/10/2015 Nightmares associated with chronic post-traumat* 8 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] 02/27/2021 Impaired glucose metabolism [R73.09] 02/27/2021 Left shoulder pain [M25.512] 05/08/2021 Cervicalgia [M54.2] 05/08/2021 Cervical spondylosis without myelopathy [M47.81*09/16/2021 Post laminectomy syndrome [M96.1] 01/11/2022 Hyperlipidemia [E78.5] 01/11/2022 Encounter Status:[facility] ([id number]) 1965 F CHT Date Time Provider Department 01/11/23 [facility] During your visit today, we recorded the following information about you: Aysha Jason LPN 01/11/2023 10:54 AM Signed Pt was seen yesterday. Pt is calling about xray results and labs. Not all labs are resulted yet. Pt wanted to let provider know that yesterday after leaving that jaw and ear hurt all night. Pt reports ear hurt like when she had ear infections in the past even though ear was clear at appt. Component Results Component Performing Lab Radiology Result (Actionable) (Final) [facility] ACTIONABLE Comment: This report contains an incidental or actionable finding. This finding may be a new finding separate from the reason your provider ordered the imaging test or it may be an already known finding that needs additional or continued follow-up. Because of this incidental or actionable finding, you may need another test (imaging or a different type of test). Please contact your provider for the next steps. Impression IMPRESSION: Lobulated right apical pleural thickening. CT scans recommended for complete evaluation. ACTIONABLE RESULT: FOLLOW-UP Acuity: Actionable Findings: Thoracic-Other Routing Code: CT_1 Recommendation: CT Chest WO IVCON Time Frame: At the discretion of the clinical team. COMMUNICATION: Results will be communicated with the ordering provider via [employer] staff message or phone message by [facility] within 2 business days of report finalization. --END OF FINDING-- Nely Armas LPN, APRN.CNP 01/11/2023 2:45 PM Signed Chest x-ray showing pleural thickening in the left lung, this can be caused infection or chronic inflammation such as from smoking however because of its appearance the radiologist is recommending a CT scan of the chest to rule out other more serious causes. Please assist patient in scheduling. Not all labs have resulted but so far they were normal except WBC count and platelets were elevated, the significance of this is unclear. Will wait for the other lab results and CT scan to determine what further work-up may be needed. RISHI Toure Amanda, RN 01/11/2023 3:05 PM Signed Pt called and is notified of providers results and instructions. Pt voices understanding. Transferred to scheduled to set up appt for chest CT. JAKE Bowie Helen E LPN 01/12/2023 8:[address] scheduled. Diann Benitez LPN Allergies As of Date: 01/11/2023 Noted Allergy Reaction CORTISONE 08/14/2014 4 - Hives LATEX, NATURAL RUBBER 04/23/2010 2 - Rash PENICILLINS 12/21/2004 4 - Hives IV CONTRAST (IODINE) 09/16/2021 14 - Other: See Comments Comments: Patient reports she has had reactions to contrast on occasion, not consistently, and no specific reaction was noted MELOXICAM 08/13/2021 8 - GI Upset ENTEX (PHENYLEPHRINE-GUAIFEN ESIN) 01/04/2005 5 - Intolerance NAPROSYN (NAPROXEN) 12/21/2004 2 - Rash Date Reviewed: 01/10/2023 Reviewed by: Nely Flores APRN.HOME CARE NURSE - Fully Assessed Reason for Visit: Results [95] Xray Results [439] Primary Visit Diagnosis:Pleural thickening [J92.9] Other Visit Diagnoses:Cigarette smoker [F17.210] Pulmonary emphysema, unspecified emphysema type (HCC) [J43.9] Order(s):CT CHEST WO IVCON [[id number]] Order #: [id number] FUTURE Prescriptions as of 01/12/2023 - FLUoxetine (PROZAC) 40 mg capsule Take 1 capsule by mouth once daily. - doxycycline (VIBRA-TABS) 100 mg tablet Take 1 tablet by mouth two times a day. - gabapentin (NEURONTIN) 600 mg tablet Take 1 tablet by mouth three times a day for 180 days. - metoprolol succinate ER (TOPROL XL) 25 mg 24 hr tablet Take 1 tablet by mouth once daily. - cyclobenzaprine (FLEXERIL) 10 mg tablet Take 1 tablet by mouth three times daily as needed for muscle spasm. - albuterol HFA (PROVENTIL HFA, VENTOLIN HFA) 90 mcg/actuation inhaler Inhale 2 Puffs as instructed every 4 hours as needed for wheezing/shortness of breath. Patient requests VENTOLIN please. With spacer please. - atorvastatin (LIPITOR) 20 mg tablet Take 1 tablet by mouth once daily. - omeprazole (PRILOSEC) 40 mg capsule Take 40 mg by mouth. - acetaminophen (TYLENOL EXTRA STRENGTH) 500 mg tablet Take 2 tablets by mouth every 6 hours as needed for pain. Problem List As Of Date 01/11/2023 Noted Resolved Depression, major [F32.9] 04/23/2010 Emphysema/COPD (HCC) [J43.9] 04/23/2010 Cigarette smoker [F17.210] 05/05/2010 Post-traumatic stress disorder [F43.10] 06/03/2010 Complicated grief [F43.21] 06/23/2011 02/02/2021 Anxiety disorder [F41.9] 06/23/2011 Hip pain [M25.559] 02/07/2013 01/11/2022 Hot flashes [R23.2] 02/28/2013 02/27/2021 RSD (reflex sympathetic dystrophy) [G90.50] 03/28/2013 Fibromyalgia [M79.7] 03/28/2013 Inflammatory krista (more content not included)... Normal [facility] Telephone (INTMWS) BARBARA HERNANDEZ ([id number]) 1965 F CHT Date Time Provider Department 01/11/23 PAOLO GIRARD INTMWS During your visit today, we recorded the following information about you: Kay Gaston RN 01/11/2023 3:31 PM Signed Patient calling. Has CT CHEST WO IVCON scheduled at [facility] for 01/20. Pt requesting CT order be faxed to [facility] Scheduling to see if able to have scan completed sooner there. Pt requesting 01/20 CT scan not be canceled at [facility] yet. Order faxed to [facility] Scheduling as requested. Kay Gaston RN Allergies As of Date: 01/11/2023 Noted Allergy Reaction CORTISONE 08/14/2014 4 - Hives LATEX, NATURAL RUBBER 04/23/2010 2 - Rash PENICILLINS 12/21/2004 4 - Hives IV CONTRAST (IODINE) 09/16/2021 14 - Other: See Comments Comments: Patient reports she has had reactions to contrast on occasion, not consistently, and no specific reaction was noted MELOXICAM 08/13/2021 8 - GI Upset ENTEX (PHENYLEPHRINE-GUAIFEN ESIN) 01/04/2005 5 - Intolerance NAPROSYN (NAPROXEN) 12/21/2004 2 - Rash Date Reviewed: 01/10/2023 Reviewed by: Older, Nely, [employer].HOME CARE NURSE -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 [address] Result Comment: No s erological evidence of immunity to Hepatitis B Virus. Performed By: #### 5 195-3, 81520-5, 39033-5, 62630-9 ####[facility] LABIA [id number] [place] [address] [place] HBV surface Ag Ser Qlon 12-14 HBV surface Ag Ql (S) Negative Normal Negative [facility] Comment on above: Order Comment: Speci men Type: BLOOD SPECIMENOrdering Facility: [facility] Address: [address] [place] [address] Performed By: #### 5 195-3, 99166-9, 92828-7, 22151-1 ####[facility] LABIA [id number] [place] [address] [place] HCV Ab Ser Qlon 01-10-2023 HCV Ab Ql (S) Negative Normal Negative [facility] Comment on above: Order Comment: Speci men Type: BLOOD SPECIMENOrdering Facility: [facility] Address: [address] [place] [address] Result Comment: The result suggests no evidence of active infection with Hepatitis C virus. Should recent infection be suspected, repeat testing may be considered 4-6 weeks after this draw. Performed By: #### 1 6128-1 ####[facility] LABIA [id number] [place] [address] [place] HIV 1+2 Ab IA Qlon 3 HIV 1 and 2 Ab IA.rapid Nom Normal [facility] Comment on above: Order Comment: Speci men Type: BLOOD SPECIMENOrdering Facility: [facility] Address: [address] [place] [address] Result Comment: Test not indicated. Performed By: #### 5 195-3, 60531-5, 31655-0, 54728-1 ####[facility] LABIA [id number] [place] [address] [place] HIV 1+2 Ab+HIV1 p24 Ag IA Ql Non-Reactive Normal Nonreactive [facility] Comment on above: Order Comment: Speci men Type: BLOOD SPECIMENOrdering Facility: [facility] Address: [address] [place] [address] Performed By: #### 5 195-3, 28589-6, 92005-6, 89197-9 ####[facility] LABIA [id number] [place] [address] [place] HIV immunoassay testing algorithm interpretation (S/P/Bld) [Interp] Normal [facility] Comment on above: Order Comment: Speci men Type: BLOOD SPECIMENOrdering Facility: [facility] Address: [address] [place] [address] Result Comment: No e vidence of HIV-1 or HIV-2 infection. Should recent infection be suspected, repeat testing may be considered 2-3 weeks after this draw. [place] Rev. Code 3701.243(E): This information has been disclosed to you from confidential records protected from disclosure by state law. ???You shall make no further disclosure of this information without the specific, written, and informed release of the individual to whom it pertains or as otherwise permitted by state law. A general authorization for the release of medical or other information is not sufficient for the purpose of the release of HIV test results or diagnoses. Performed By: #### 5 195-3, 72677-0, 08877-2, 76806-5 ####[facility] LABCLIA [id number] [facility] [id number] [id number] [place] XR CHEST 2V FRONTAL/LATon XR CHEST 2V FRONTAL/LAT * * *Final Report* * * DATE OF EXAM: Jan 10 2023 11:37AM WOX [id number] - XR CHEST 2V FRONTAL/LAT / PROCEDURE REASON: multiple diagnoses * * * * Physician Interpretation * * * * EXAMINATION: CHEST RADIOGRAPH (2 VIEW FRONTAL and LATERAL) CLINICAL HISTORY: Night sweats Unintentional weight loss MQ: XC2_6 EXAM DATE/TIME: 01/10/2023 11:37 AM COMPARISON: No relevant prior studies available. RESULT: Lines, tubes, and devices: None. Lungs and pleura: Apical scarring bilaterally is more pronounced on the right. Somewhat lobulated laterally. No pleural fluid or pneumothorax. No significant collapse or consolidation Cardiomediastinal silhouette: Normal cardiomediastinal silhouette. Bones and soft tissues: Unremarkable. IMPRESSION: Lobulated right apical pleural thickening. CT scans recommended for complete evaluation. ACTIONABLE RESULT: FOLLOW-UP Acuity: Actionable Findings: Thoracic-Other Routing Code: CT_1 Recommendation: CT Chest WO IVCON Time Frame: At the discretion of the clinical team. COMMUNICATION: Results will be communicated with the ordering provider via [employer] staff message or phone message by [employer] within 2 business days of report finalization. --END OF FINDING-- Physician Specialist: PSCB Transcribe Date/Time: Jan 10 2023 4:41P Dictated by : BAILEE REESE MD This examination was interpreted and the report reviewed and electronically signed by: BAILEE REESE MD on Jan 10 2023 4:53PM EST [id number] ACTIONABLE Invalid Interpretation Code [facility] XR Chest PA and LateralOrder ed By: Ccf Provider on 01-10-2023 Interpretation and review of laboratory results Abnormal [facility] Radiology Result ACTIONABLE Abnormal [facility] Comment on above: This report contains an incidental or actionable finding. This finding may be a new finding separate from the reason your provider ordered the imaging test or it may be an already known finding that needs additional or continued follow-up. Because of this incidental or actionable finding, you may need another test (imaging or a different type of test). Please contact your provider for the next steps. [facility] XR Chest PA and Lateralon IMPRESSION: Lobulated right apical pleural thickening. CT scans recommended for complete evaluation. ACTIONABLE RESULT: FOLLOW-UP Acuity: Actionable Findings: Thoracic-Other Routing Code: CT_1 Recommendation: CT Chest WO IVCON Time Frame: At the discretion of the clinical team. COMMUNICATION: Results will be communicated with the ordering provider via [employer] staff message or phone message by [employer] within 2 business days of report finalization. --END OF FINDING-- Physician Specialist: PSCB Transcribe Date/Time: Jan 10 2023 4:41P Dictated by : BAILEE REESE MD This examination was interpreted and the report reviewed and electronically signed by: BAILEE REESE MD on Jan 10 2023 4:53PM [facility] DIVISION OF RADIOLOGY * * *Final Report* * * DATE OF EXAM: Jan 10 2023 11:37AM WOX 5291 - XR CHEST 2V FRONTAL/LAT / PROCEDURE REASON: multiple diagnoses * * * * Physician Interpretation * * * * EXAMINATION: CHEST RADIOGRAPH (2 VIEW FRONTAL & LATERAL) CLINICAL HISTORY: Night sweats Unintentional weight loss MQ: XC2_6 EXAM DATE/TIME: 01/10/2023 11:37 AM COMPARISON: No relevant prior studies available. RESULT: Lines, tubes, and devices: None. Lungs and pleura: Apical scarring bilaterally is more pronounced on the right. Somewhat lobulated laterally. No pleural fluid or pneumothorax. No significant collapse or consolidation Cardiomediastinal silhouette: Normal cardiomediastinal silhouette. Bones and soft tissues: Unremarkable. DIVISION OF RADIOLOGY Provider, [facility] - 01/10/2023 * * *Final Report* * * DATE OF EXAM: Jan 10 2023 11:37AM WOX 5291 - XR CHEST 2V FRONTAL/LAT / PROCEDURE REASON: multiple diagnoses * * * * Physician Interpretation * * * * EXAMINATION: CHEST RADIOGRAPH (2 VIEW FRONTAL & LATERAL) CLINICAL HISTORY: Night sweats Unintentional weight loss MQ: XC2_6 EXAM DATE/TIME: 01/10/2023 11:37 AM COMPARISON: No relevant prior studies available. RESULT: Lines, tubes, and devices: None. Lungs and pleura: Apical scarring bilaterally is more pronounced on the right. Somewhat lobulated laterally. No pleural fluid or pneumothorax. No significant collapse or consolidation Cardiomediastinal silhouette: Normal cardiomediastinal silhouette. Bones and soft tissues: Unremarkable. IMPRESSION IMPRESSION: Lobulated right apical pleural thickening. CT scans recommended for complete evaluation. ACTIONABLE RESULT: FOLLOW-UP Acuity: Actionable Findings: Thoracic-Other Routing Code: CT_1 Recommendation: CT Chest WO IVCON Time Frame: At the discretion of the clinical team. COMMUNICATION: Results will be communicated with the ordering provider via [employer] staff message or phone message by [facility] [employer] [facility] within 2 business days of report finalization. --END OF FINDING-- Physician Specialist: MARY Transcribe Date/Time: Jan 10 2023 4:41P Dictated by : BAILEE REESE MD This examination was interpreted and the report reviewed and electronically signed by: BAILEE REESE MD on Jan 10 2023 4:53PM [facility] Radiology Study observation (narrative) [facility]N Tele[facility] (INTMWS) BARBARA HERNANDEZ ([id number]) 1965 F T Date Time Provider Department 01/03/23 PAOLO GIRARD INTMWS During your visit today, we recorded the following information about you: Kia Gottlieb, JAKE 01/03/2023 8:24 AM Signed Patient calls to ask if provider would give her a refill on the doxycycline for the rash that she has had for 2 years. She reports that the doxycycline has improved it more than anything she has tried so far. She also wanted to let provider know that she continues feeling very ill with the same illness she was seen on 12/20/2022 for. She reports severe ear pain/pressure, fatigue, and fever of 100. Patient didn't go to EC as previously mentioned because transportation is still an issue for EC or an OV. Patient reports she felt so bad Tuesday night she almost called 911. The ear pain is causing her CP and SOB at times. Notified patient that for those symptoms we would definitely want her to go to ED for evaluation. She said that she is not going to the ED because when she does they ask her why her PCP is not treating her. Patient asking provider for further treatment without an OV. Please review and advise, JAKE Gale Naz, APRN.KALEIGH 01/03/2023 8:50 AM Signed I can refill her Doxycycline for the chronic rash however she needs to at least be evaluated in the office for prolonged fever of unknown cause so the most appropriate tests can be ordered Nely Flores APRN.Sage Bah Ma 01/03/2023 12:17 PM Signed TC to patient. Mailbox if full. Will try again later. Tejal Lin RN 01/03/2023 12:31 PM Signed Spoke with patient. Given message from provider's office. Patient verbalizes understanding. Scheduled appointment for patient next Tuesday01/10/23 per patient request due to transportation issues. Tejal Lin RN Allergies As of Date: 01/03/2023 Noted Allergy Reaction CORTISONE 08/14/2014 4 - Hives LATEX, NATURAL RUBBER 04/23/2010 2 - Rash PENICILLINS 12/21/2004 4 - Hives IV CONTRAST (IODINE) 09/16/2021 14 - Other: See Comments Comments: Patient reports she has had reactions to contrast on occasion, not consistently, and no specific reaction was noted MELOXICAM 08/13/2021 8 - GI Upset ENTEX (PHENYLEPHRINE-GUAIFEN ESIN) 01/04/2005 5 - Intolerance NAPROSYN (NAPROXEN) 12/21/2004 2 - Rash Date Reviewed: 12/20/2022 Reviewed by: Nely Flores APRN.HOME CARE NURSE - Fully Assessed Reason for Visit: Patient Update [1234] Order(s):doxycycline (VIBRA-TABS) 100 mg tabletTake 1 tablet by mouth two times a day.Disp: 60 tabletRfl: 5 Prescriptions as of 01/03/2023 - doxycycline (VIBRA-TABS) 100 mg tablet Take 1 tablet by mouth two times a day. - FLUoxetine (PROZAC) 40 mg capsule Take 2 capsules by mouth once daily. - gabapentin (NEURONTIN) 600 mg tablet Take 1 tablet by mouth three times a day for 180 days. - metoprolol succinate ER (TOPROL XL) 25 mg 24 hr tablet Take 1 tablet by mouth once daily. - cyclobenzaprine (FLEXERIL) 10 mg tablet Take 1 tablet by mouth three times daily as needed for muscle spasm. - albuterol HFA (PROVENTIL HFA, VENTOLIN HFA) 90 mcg/actuation inhaler Inhale 2 Puffs as instructed every 4 hours as needed for wheezing/shortness of breath. Patient requests VENTOLIN please. With spacer please. - atorvastatin (LIPITOR) 20 mg tablet Take 1 tablet by mouth once daily. - omeprazole (PRILOSEC) 40 mg capsule Take 40 mg by mouth. - acetaminophen (TYLENOL EXTRA STRENGTH) 500 mg tablet Take 2 tablets by mouth every 6 hours as needed for pain. Problem List As Of Date 01/03/2023 Noted Resolved Depression, major [F32.9] 04/23/2010 Emphysema/COPD (HCC) [J43.9] 04/23/2010 Cigarette smoker [F17.210] 05/05/2010 Post-traumatic stress disorder [F43.10] 06/03/2010 Complicated grief [F43.21] 06/23/2011 02/02/2021 Anxiety disorder [F41.9] 06/23/2011 Hip pain [M25.559] 02/07/2013 01/11/2022 Hot flashes [R23.2] 02/28/2013 02/27/2021 RSD (reflex sympathetic dystrophy) [G90.50] 03/28/2013 Fibromyalgia [M79.7] 03/28/2013 Inflammatory polyarthropathy (HCC) [M06.4] 03/28/2013 01/11/2022 NO SHOW [287534] 09/04/2014 12/10/2015 Nightmares associated with chronic post-traumat* 8 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 Medications Discontinued During This Encounter Prescriptions - doxycycline (VIBRA-TABS) 100 mg tablet (Discontinued) Take 1 tablet by mouth two times a day for 10 da (more content not included)... Normal [facility] HER[facility] ([id number]) 1965 F T Date Time Provider Department 12/23/22 PAOLO GIRARD INTWS During your visit today, we recorded the following information about you: Jacob Rosenbaum LPN 12/23/2022 1:52 PM Signed Pt called to give an update. Pt was seen last in the office on 12-20-22. Pt reports she is no better on the ATB. Pt reports she is fatigued, running a fever of 100, when she stands up feels like she is going to collapse.Reports her body feels like jelly. Pt is trying to get fluids in. Pt does not have anyway to come back in for apt. No transportation. Pt denies: chest pain, SOB or difficulty breathing. Please advise pt. Racheal Mcdonald LPN, RN 12/24/2022 8:26 AM Signed Patient calls back and states that she continues to feel worse. Patient states that her temperature is 101. Patient states that she has been taking tylenol which does not bring down fever. Patient wanting to know what else she can do? Advised patient that if she is feeling worse and if her temperature keeps getting higher then she needs to go to ER to be evaluated. Patient reports that she will be told to contact her primary care doctor and ER will not do anything for her. Patient also states that she has no way to ER. Patient asking for provider to advise on this. Please review and advise, JAKE Marcus Naz, APRN.CNP 12/24/2022 11:31 AM Signed If she is getting this much worse than she needs an appointment in the office or go to [facility] for an evaluation in order to determine the most appropriate work-up and treatment if indicated. If symptoms are severe she should go to the ER Nely Flores APRN.[facility] 12/24/2022 11:42 AM Signed Patient notified, verbalized understanding. She states that she will try to go to express care when she finds a ride. Allergies As of Date: 12/23/2022 Noted Allergy Reaction CORTISONE 08/14/2014 4 - Hives LATEX, NATURAL RUBBER 04/23/2010 2 - Rash PENICILLINS 12/21/2004 4 - Hives IV CONTRAST (IODINE) 09/16/2021 14 - Other: See Comments Comments: Patient reports she has had reactions to contrast on occasion, not consistently, and no specific reaction was noted MELOXICAM 08/13/2021 8 - GI Upset ENTEX (PHENYLEPHRINE-GUAIFEN ESIN) 01/04/2005 5 - Intolerance NAPROSYN (NAPROXEN) 12/21/2004 2 - Rash Date Reviewed: 12/20/2022 Reviewed by: Nely Flores APRN.HOME CARE NURSE - Fully Assessed Reason for Visit: Pt update on illness [Other] Prescriptions as of 12/24/2022 - acetaminophen (TYLENOL EXTRA STRENGTH) 500 mg tablet Take 2 tablets by mouth every 6 hours as needed for pain. - albuterol HFA (PROVENTIL HFA, VENTOLIN HFA) 90 mcg/actuation inhaler Inhale 2 Puffs as instructed every 4 hours as needed for wheezing/shortness of breath. Patient requests VENTOLIN please. With spacer please. - atorvastatin (LIPITOR) 20 mg tablet Take 1 tablet by mouth once daily. - cyclobenzaprine (FLEXERIL) 10 mg tablet Take 1 tablet by mouth three times daily as needed for muscle spasm. - doxycycline (VIBRA-TABS) 100 mg tablet Take 1 tablet by mouth two times a day for 10 days. - FLUoxetine (PROZAC) 40 mg capsule Take 2 capsules by mouth once daily. - gabapentin (NEURONTIN) 600 mg tablet Take 1 tablet by mouth three times a day for 180 days. - metoprolol succinate ER (TOPROL XL) 25 mg 24 hr tablet Take 1 tablet by mouth once daily. - omeprazole (PRILOSEC) 40 mg capsule Take 40 mg by mouth. Problem List As Of Date 12/23/2022 Noted Resolved Depression, major [F32.9] 04/23/2010 Emphysema/COPD (HCC) [J43.9] 04/23/2010 Cigarette smoker [F17.210] 05/05/2010 Post-traumatic stress disorder [F43.10] 06/03/2010 Complicated grief [F43.21] 06/23/2011 02/02/2021 Anxiety disorder [F41.9] 06/23/2011 Hip pain [M25.559] 02/07/2013 01/11/2022 Hot flashes [R23.2] 02/28/2013 02/27/2021 RSD (reflex sympathetic dystrophy) [G90.50] 03/28/2013 Fibromyalgia [M79.7] 03/28/2013 Inflammatory polyarthropathy (HCC) [M06.4] 03/28/2013 01/11/2022 NO SHOW [[id number]] 09/04/2014 12/10/2015 Nightmares associated with chronic post-traumat* 8 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] 02/27/2021 Impaired glucose metabolism [R73.09] 02/27/2021 Left shoulder pain [M25.512] 05/08/2021 Cervicalgia [M54.2] 05/08/2021 Cervical spondylosis without myelopathy [M47.81*09/16/2021 Post laminectomy syndrome [M96.1] 01/11/2022 Hyperlipidemia [E78.5] 01/11/2022 Encounter Status:Closed by RACHEAL WILDER on 12/24/22 [facility] CNOVon 12-20-2022 CNOV Office Visit (INTMWS ) BARBARA HERNANDEZ ([id number]) 1965 F CHT Date Time Provider Department 12/20/22 3:20 PM NELY FLORES INTMWS During your visit today, we recorded the following information about you: Temperature Pulse Respiration Blood pressure 99.6 degrees 88/minute 18/minute 130/78 Weight 44.9 kg Nely Flores APRN.[facility] 12/21/2022 8:05 AM Signed CC: Patient presents with: F/U 3 Month: Seen in express care a couple of times per pt. HPI Barbara Hernandez is a 57 year old female who presents today for above. She was seen in Express Care twice last month for URI, ear infection, ear pain and chronic right hip pain. She was treated with Cefdinir and prednisone. Patient reports she still feels very ill, fatigued and feverish. Both ears are still painful along with pressure in her head. She has a chronic rash for over two years. She was evaluated by hedge fund manager some time ago and was on injections but her insurance would no longer cover them. Patient reports every time she is ill the rash flares up in various locations, this time it is the most severe on her buttocks. Rash is painful and a little itchy. Chronic pains in the back and hips secondary to spondylosis, osteoarthritis and fibromyalgia are not well controlled. She has seen a few different pain management specialists and spine medicine, no treatments have offered much relief. She does get minor relief with Flexeril however but not enough to manage her pain effectively. Review of Systems Constitutional: Positive for chills, diaphoresis, fatigue and fever. Negative for unexpected weight change. HENT: Positive for congestion, ear pain and sinus pressure. Respiratory: Negative for cough, shortness of breath and wheezing. Cardiovascular: Negative for chest pain, palpitations and leg swelling. PAST MEDICAL HISTORY Diagnosis Date Anxiety disorder 06/23/2011 Chronic obstructive pulmonary disease (COPD) (HCC) Complicated grief 06/23/2011 Depression Depression, major 04/23/2010 Emphysema/COPD ([facility]) 04/23/2010 Fibromyalgia 03/28/[address] Bergman Hot flashes 02/28/2013 Inflammatory polyarthropathy ([facility]) 03/28/[address] Bergman Marcia - [place] tear 09/2010 received transfusion Post-traumatic stress disorder 06/03/2010 RSD (reflex sympathetic dystrophy) 03/28/2013 Right upper extremity screening for Type 2 diabetes mellitus without complication ([facility]) 07/16/2016 PAST SURGICAL HISTORY Procedure Laterality Date ESOPHAGOGASTRODUODENOS COPY TRANSORAL DIAGNOSTIC 10/07/2010 EGD [facility] inpt n /H-pylori negative LAMINOTOMY (HEMILAMINECTOMY), WITH DECOMPRESSION OF NERVE ROOT(S) Right 03/12/2020 L5-S1 discectomy, [facility], Dr. Bety Spicer LIG/TRNSXJ FLP TUBE ABDL/VAG APPR UNI/BI Tubal ligation PAST SURGICAL HISTORY OF 07/24/2018 Complete hysterectomy PAST SURGICAL HISTORY OF Right carpal tunnel ALLERGIES Cortisone; Latex, Natural Rubber; Penicillins; Iv Contrast [Iodine]; Meloxicam; Entex [Phenylephrine-Guaifen esin]; and Naprosyn [Naproxen] MEDICATIONS gabapentin (NEURONTIN) 600 mg tablet Take 1 tablet by mouth three times daily for 30 days. cyclobenzaprine (FLEXERIL) 10 mg tablet Take 1 tablet by mouth three times daily as needed for muscle spasm. FLUoxetine (PROZAC) 40 mg capsule Take 2 capsules by mouth once daily. albuterol HFA (PROVENTIL HFA, VENTOLIN HFA) 90 mcg/actuation inhaler Inhale 2 Puffs as instructed every 4 hours as needed for wheezing/shortness of breath. Patient requests VENTOLIN please. With spacer please. atorvastatin (LIPITOR) 20 mg tablet Take 1 tablet by mouth once daily. omeprazole (PRILOSEC) 40 mg capsule Take 40 mg by mouth. acetaminophen (TYLENOL EXTRA STRENGTH) 500 mg tablet Take 2 tablets by mouth every 6 hours as needed for pain. FAMILY HISTORY Problem Relation Age of Onset Diabetes Mother Hypertension Mother Cancer Mother Coronary Artery Disease Father myesthenia gravis Heart Father By-pass COPD Brother other (Smoker) Brother Social History Tobacco Use Smoking status: Every Day Packs/day: 1.00 Years: 20.00 Additional pack years: 0.00 Total pack years: 20.00 Types: Cigarettes Smokeless tobacco: Never Tobacco comments: Down to a couple cigarettes a day Vaping Use Vaping Use: Never used Substance Use Topics Alcohol use: Not Currently Comment: quit drinking 01/25/18 Drug use: No BP 130/78 Pulse 88 Temp 37.6 ?C (99.6 ?F) Resp 18 Wt 44.9 kg (99 lb) LMP 08/06/2014 (LMP Unknown) SpO2 98% BMI 15.98 kg/m? Physical Exam Vitals reviewed. Constitutional: General: She is not in acute distress. Appearance: She is not ill-appearing. HENT: Right Ear: Tympanic membrane, ear canal and external ear normal. Left Ear: Tympanic membrane, ear canal and external ear normal. Nose: No nasal tenderness, mucosal edema or congestion. Mouth/Th (more content not included)... Normal [facility] CNOVon 12-02-2022 CNOV Office Visit (UCTR ) BARBARA HERNANDEZ ([id number]) 1965 F T Date Time Provider Department 12/02/22 10:00 AM RAMIRO [facility]YALA [facility] During your visit today, we recorded the following information about you: Temperature Pulse Respiration Blood pressure 98.3 degrees 101/minute 18/minute 137/90 Weight 44.6 kg Ramiro Ayala PA-C 12/02/2022 11:14 AM Signed This note was created using myOrderriter. Subjective Barbara Hernandez is a 56 year old female. HPI Presents with a chief complaint of chronic ear pain and chronic right hip and buttock pain. She states she was sitting or at the hospital on a hard chair for 3 days with her boyfriend and thinks that flared up her hip and buttock pain. She has seen primary care, pain management for this previously. Denies any falls or injury. Patient also complaining of bilateral ear pressure. She was seen on 911 and given Omnicef for an ear infection. She had an URI at that point which has improved. Her COVID test was negative. Denies drainage out of her ears. No trouble hearing. Feels like pressure. Review of Systems Constitutional: Negative. HENT: Positive for ear pain and sinus pressure. Negative for rhinorrhea. Respiratory: Negative. Cardiovascular: Negative. Gastrointestinal: Negative. Musculoskeletal: Right hip and buttock pain All other systems reviewed and are negative. PAST MEDICAL HISTORY Diagnosis Date Anxiety disorder 06/23/2011 Chronic obstructive pulmonary disease (COPD) ([facility]) Complicated grief 06/23/2011 Depression Depression, major 04/23/2010 Emphysema/COPD ([facility]) 04/23/2010 Fibromyalgia 03/28/[address] Bergman Hot flashes 02/28/2013 Inflammatory polyarthropathy ([facility]) 03/28/[address] Bergman Marcia - Fre[place]man tear 09/2010 received transfusion Post-traumatic stress disorder 06/03/2010 RSD (reflex sympathetic dystrophy) 03/28/2013 Right upper extremity screening for Type 2 diabetes mellitus without complication ([facility]) 07/16/2016 Current Outpatient Medications Medication Sig Dispense Refill predniSONE (DELTASONE) 20 mg tablet Take 2 tablets by mouth once daily for 5 days. 10 tablet 0 gabapentin (NEURONTIN) 600 mg tablet Take 1 tablet by mouth three times daily for 30 days. 90 tablet 0 FLUoxetine (PROZAC) 40 mg capsule Take 2 capsules by mouth once daily. 60 capsule 0 albuterol HFA (PROVENTIL HFA, VENTOLIN HFA) 90 mcg/actuation inhaler Inhale 2 Puffs as instructed every 4 hours as needed for wheezing/shortness of breath. Patient requests VENTOLIN please. With spacer please. 18 g 1 cyclobenzaprine (FLEXERIL) 10 mg tablet Take 1 tablet by mouth three times daily as needed for muscle spasm. 30 tablet 0 atorvastatin (LIPITOR) 20 mg tablet Take 1 tablet by mouth once daily. 30 tablet 0 omeprazole (PRILOSEC) 40 mg capsule Take 40 mg by mouth. acetaminophen (TYLENOL EXTRA STRENGTH) 500 mg tablet Take 2 tablets by mouth every 6 hours as needed for pain. 180 tablet 1 No current facility-administered medications for this visit. PAST SURGICAL HISTORY Procedure Laterality Date ESOPHAGOGASTRODUODENOS COPY TRANSORAL DIAGNOSTIC 10/07/2010 EGD [facility] inpt n /H-pylori negative LAMINOTOMY (HEMILAMINECTOMY), WITH DECOMPRESSION OF NERVE ROOT(S) Right 03/12/2020 L5-S1 discectomy, [facility], Dr. Bety Spicer LIG/TRNSXJ FLP TUBE ABDL/VAG APPR UNI/BI Tubal ligation PAST SURGICAL HISTORY OF 07/24/2018 Complete hysterectomy PAST SURGICAL HISTORY OF Right carpal tunnel FAMILY HISTORY Problem Relation Age of Onset Diabetes Mother Hypertension Mother Cancer Mother Coronary Artery Disease Father myesthenia gravis Heart Father By-pass COPD Brother other (Smoker) Brother Social History Tobacco Use Smoking status: Every Day Packs/day: 1.00 Years: 20.00 Additional pack years: 0.00 Total pack years: 20.00 Types: Cigarettes Smokeless tobacco: Never Tobacco comments: Down to a couple cigarettes a day Vaping Use Vaping Use: Never used Substance Use Topics Alcohol use: Not Currently Comment: quit drinking 01/25/18 Drug use: No Objective BP 137/90 Pulse 101 Temp 36.8 ?C (98.3 ?F) Resp 18 Wt 44.6 kg (98 lb 6.4 oz) LMP 08/06/2014 (LMP Unknown) SpO2 97% BMI 15.88 kg/m? Physical Exam Vitals reviewed. Constitutional: Appearance: Normal appearance. HENT: Head: Normocephalic and atraumatic. Right Ear: Tympanic membrane, ear canal and external ear normal. Left Ear: Tympanic membrane, ear canal and external ear normal. Nose: Nose normal. Mouth/Throat: Mouth: Mucous membranes are moist. Pharynx: Oropharynx is clear. Cardiovascular: Rate and Rhythm: Normal rate and regular rhythm. Heart sounds: Normal heart sounds. Pulmonary: Effort: Pulmonary effort is normal. Breath sounds: Normal breath sounds. Musculoskeletal: Comments: Patient tender along the right buttocks. Tend (more content not included)... Normal [facility]ir 12-01-2022 KALEIGHN Telephone (FAMPWS) BARBARA HERNANDEZ ([id number]) 1965 F CHT Date Time Provider Department 12/01/22 PAOLO GIRARD During your visit today, we recorded the following information about you: Juan Crookistin 12/01/2022 4:36 PM Signed [place] [employer] is calling on behalf of the patient, verfied patient by name and . They are requesting that the patients last appointment information be faxed to them including dx codes. The fax # is [phone] Diann Cardenas LPN 12/01/2022 6:45 PM Signed Last OV 04/02/2022 faxed. Diann Benitez LPN Allergies As of Date: 12/01/2022 Noted Allergy Reaction CORTISONE 08/14/2014 4 - Hives LATEX, NATURAL RUBBER 04/23/2010 2 - Rash PENICILLINS 12/21/2004 4 - Hives IV CONTRAST (IODINE) 09/16/2021 14 - Other: See Comments Comments: Patient reports she has had reactions to contrast on occasion, not consistently, and no specific reaction was noted MELOXICAM 08/13/2021 8 - GI Upset ENTEX (PHENYLEPHRINE-GUAIFEN ESIN) 01/04/2005 5 - Intolerance NAPROSYN (NAPROXEN) 12/21/2004 2 - Rash Date Reviewed: 11/22/2022 Reviewed by: Gladis Damico - Fully Assessed Prescriptions as of 12/01/2022 - gabapentin (NEURONTIN) 600 mg tablet Take 1 tablet by mouth three times daily for 30 days. - FLUoxetine (PROZAC) 40 mg capsule Take 2 capsules by mouth once daily. - albuterol HFA (PROVENTIL HFA, VENTOLIN HFA) 90 mcg/actuation inhaler Inhale 2 Puffs as instructed every 4 hours as needed for wheezing/shortness of breath. Patient requests VENTOLIN please. With spacer please. - cyclobenzaprine (FLEXERIL) 10 mg tablet Take 1 tablet by mouth three times daily as needed for muscle spasm. - atorvastatin (LIPITOR) 20 mg tablet Take 1 tablet by mouth once daily. - omeprazole (PRILOSEC) 40 mg capsule Take 40 mg by mouth. - acetaminophen (TYLENOL EXTRA STRENGTH) 500 mg tablet Take 2 tablets by mouth every 6 hours as needed for pain. Problem List As Of Date 12/01/2022 Noted Resolved Depression, major [F32.9] 04/23/2010 Emphysema/COPD (HCC) [J43.9] 04/23/2010 Cigarette smoker [F17.210] 05/05/2010 Post-traumatic stress disorder [F43.10] 06/03/2010 Complicated grief [F43.21] 06/23/2011 02/02/2021 Anxiety disorder [F41.9] 06/23/2011 Hip pain [M25.559] 02/07/2013 01/11/2022 Hot flashes [R23.2] 02/28/2013 02/27/2021 RSD (reflex sympathetic dystrophy) [G90.50] 03/28/2013 Fibromyalgia [M79.7] 03/28/2013 Inflammatory polyarthropathy (HCC) [M06.4] 03/28/2013 01/11/2022 NO SHOW [[id number]] 09/04/2014 12/10/2015 Nightmares associated with chronic post-traumat* 8 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] 02/27/2021 Impaired glucose metabolism [R73.09] 02/27/2021 Left shoulder pain [M25.512] 05/08/2021 Cervicalgia [M54.2] 05/08/2021 Cervical spondylosis without myelopathy [M47.81*09/16/2021 Post laminectomy syndrome [M96.1] 01/11/2022 Hyperlipidemia [E78.5] 01/11/2022 Encounter Status:Closed by DIANN BENITEZ LPN on 12/01/22 [facility] [place] 11-26-2022 RAOUL Telephone (INTMWS) BARBARA HERNANDEZ ([id number]) 1965 F CHT Date Time Provider Department 11/26/22 PAOLO GIRARD During your visit today, we recorded the following information about you: Reixiangshasta Ayse BRYANNA 11/26/2022 9:25 AM Signed Patient calling was seen in express care Tuesday for ear infection and said her ear is worse and has fever, had spent the day yesterday in bed. Aware PCP is out of office and have no appt with [employer] today. Advised to go to [facility] care for evaluation again. Patient said her car is broken and will have to wait until daughter gets off work later today. Allergies As of Date: 11/26/2022 Noted Allergy Reaction CORTISONE 08/14/2014 4 - Hives LATEX, NATURAL RUBBER 04/23/2010 2 - Rash PENICILLINS 12/21/2004 4 - Hives IV CONTRAST (IODINE) 09/16/2021 14 - Other: See Comments Comments: Patient reports she has had reactions to contrast on occasion, not consistently, and no specific reaction was noted MELOXICAM 08/13/2021 8 - GI Upset ENTEX (PHENYLEPHRINE-GUAIFEN ESIN) 01/04/2005 5 - Intolerance NAPROSYN (NAPROXEN) 12/21/2004 2 - Rash Date Reviewed: 11/22/2022 Reviewed by: Gladis Damico - Fully Assessed Reason for Visit: Patient Update [1234] Prescriptions as of 12/07/2022 - gabapentin (NEURONTIN) 600 mg tablet Take 1 tablet by mouth three times daily for 30 days. - cyclobenzaprine (FLEXERIL) 10 mg tablet Take 1 tablet by mouth three times daily as needed for muscle spasm. - FLUoxetine (PROZAC) 40 mg capsule Take 2 capsules by mouth once daily. - predniSONE (DELTASONE) 20 mg tablet Take 2 tablets by mouth once daily for 5 days. - albuterol HFA (PROVENTIL HFA, VENTOLIN HFA) 90 mcg/actuation inhaler Inhale 2 Puffs as instructed every 4 hours as needed for wheezing/shortness of breath. Patient requests VENTOLIN please. With spacer please. - atorvastatin (LIPITOR) 20 mg tablet Take 1 tablet by mouth once daily. - omeprazole (PRILOSEC) 40 mg capsule Take 40 mg by mouth. - acetaminophen (TYLENOL EXTRA STRENGTH) 500 mg tablet Take 2 tablets by mouth every 6 hours as needed for pain. Problem List As Of Date 11/26/2022 Noted Resolved Depression, major [F32.9] 04/23/2010 Emphysema/COPD (HCC) [J43.9] 04/23/2010 Cigarette smoker [F17.210] 05/05/2010 Post-traumatic stress disorder [F43.10] 06/03/2010 Complicated grief [F43.21] 06/23/2011 02/02/2021 Anxiety disorder [F41.9] 06/23/2011 Hip pain [M25.559] 02/07/2013 01/11/2022 Hot flashes [R23.2] 02/28/2013 02/27/2021 RSD (reflex sympathetic dystrophy) [G90.50] 03/28/2013 Fibromyalgia [M79.7] 03/28/2013 Inflammatory polyarthropathy (HCC) [M06.4] 03/28/2013 01/11/2022 NO SHOW [[id number]] 09/04/2014 12/10/2015 Nightmares associated with chronic post-traumat* 8 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] 02/27/2021 Impaired glucose metabolism [R73.09] 02/27/2021 Left shoulder pain [M25.512] 05/08/2021 Cervicalgia [M54.2] 05/08/2021 Cervical spondylosis without myelopathy [M47.81*09/16/2021 Post laminectomy syndrome [M96.1] 01/11/2022 Hyperlipidemia [E78.5] 01/11/2022 Encounter Status:Closed by PAOLO GIRARD on 12/07/22 [facility] [place] 11-23-2022 KALEIGHN Telephone (UCWSTR) BARBARA HERNANDEZ ([id number]) 1965 F CHT Date Time Provider Department 11/23/22 DOMINGO BAKER UCWSTR During your visit today, we recorded the following information about you: Domingo Baker APRN.[facility] 11/23/2022 7:19 AM Signed COVID-19, influenza A, and influenza B PCR test are negative. Continue supportive therapies as discussed during visit. Follow-up with PCP if symptoms are not improving. Domingo Baker APRN.Amy Thomas LPN 11/23/2022 7:45 AM Signed Unable to reach patient. Mailbox full/Mailbox not set up/ Number incorrect. Please try again later. BRYANNA Gamez Lori LPN 11/23/2022 9:14 AM Signed Pt notified of results AND message from provider. Mary Leone LPN Allergies As of Date: 11/23/2022 Noted Allergy Reaction CORTISONE 08/14/2014 4 - Hives LATEX, NATURAL RUBBER 04/23/2010 2 - Rash PENICILLINS 12/21/2004 4 - Hives IV CONTRAST (IODINE) 09/16/2021 14 - Other: See Comments Comments: Patient reports she has had reactions to contrast on occasion, not consistently, and no specific reaction was noted MELOXICAM 08/13/2021 8 - GI Upset ENTEX (PHENYLEPHRINE-GUAIFEN ESIN) 01/04/2005 5 - Intolerance NAPROSYN (NAPROXEN) 12/21/2004 2 - Rash Date Reviewed: 11/22/2022 Reviewed by: Gladis Damico - Fully Assessed Reason for Visit: Results [95] Prescriptions as of 11/23/2022 - cefdinir (OMNICEF) 250 mg/5 mL suspension Take 6 mL by mouth twice daily for 7 days. - gabapentin (NEURONTIN) 600 mg tablet Take 1 tablet by mouth three times daily for 30 days. - FLUoxetine (PROZAC) 40 mg capsule Take 2 capsules by mouth once daily. - albuterol HFA (PROVENTIL HFA, VENTOLIN HFA) 90 mcg/actuation inhaler Inhale 2 Puffs as instructed every 4 hours as needed for wheezing/shortness of breath. Patient requests VENTOLIN please. With spacer please. - cyclobenzaprine (FLEXERIL) 10 mg tablet Take 1 tablet by mouth three times daily as needed for muscle spasm. - atorvastatin (LIPITOR) 20 mg tablet Take 1 tablet by mouth once daily. - omeprazole (PRILOSEC) 40 mg capsule Take 40 mg by mouth. - acetaminophen (TYLENOL EXTRA STRENGTH) 500 mg tablet Take 2 tablets by mouth every 6 hours as needed for pain. Problem List As Of Date 11/23/2022 Noted Resolved Depression, major [F32.9] 04/23/2010 Emphysema/COPD (HCC) [J43.9] 04/23/2010 Cigarette smoker [F17.210] 05/05/2010 Post-traumatic stress disorder [F43.10] 06/03/2010 Complicated grief [F43.21] 06/23/2011 02/02/2021 Anxiety disorder [F41.9] 06/23/2011 Hip pain [M25.559] 02/07/2013 01/11/2022 Hot flashes [R23.2] 02/28/2013 02/27/2021 RSD (reflex sympathetic dystrophy) [G90.50] 03/28/2013 Fibromyalgia [M79.7] 03/28/2013 Inflammatory polyarthropathy (HCC) [M06.4] 03/28/2013 01/11/2022 NO SHOW [[id number]] 09/04/2014 12/10/2015 Nightmares associated with chronic post-traumat* 8 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] 02/27/2021 Impaired glucose metabolism [R73.09] 02/27/2021 Left shoulder pain [M25.512] 05/08/2021 Cervicalgia [M54.2] 05/08/2021 Cervical spondylosis without myelopathy [M47.81*09/16/2021 Post laminectomy syndrome [M96.1] 01/11/2022 Hyperlipidemia [E78.5] 01/11/2022 Encounter Status:Closed by MARY LEONE LPN on 11/23/22 Normal [facility] ROUTINE FLU A/B + RSVon 11-12 FLUAV RNA MALINA+probe Ql (Unsp spec) Not detected Not Detected [facility] FLUBV RNA MALINA+probe Ql (Unsp spec) Not detected Not Detected [facility] RSV A RNA MALINA+probe Ql (Unsp spec) Not detected Not Detected [facility] CNOVon 11-22-2022 CNOV Office Visit (UCWSTR ) BARBARA HERNANDEZ ([id number]) 1965 F CHT Date Time Provider Department 11/22/22 2:15 PM ANNIE WHITFIELD [facility] During your visit today, we recorded the following information about you: Temperature Pulse Respiration Blood pressure 98.2 degrees 96/minute 16/minute 120/68 Weight 44.9 kg Annei Whitfield APRN.HOME CARE NURSE 11/22/2022 2:11 PM Signed CC: Patient presents with: Nasal Congestion: drainage, fatigue, left ear pain, eyes burning, rash and chills x 3 days HPI: Barbara Hernandez is a 56 year old female who presents to the office with complaint of head congestion, cough, nonproductive, sinus symptoms, ear symptoms, and chills for a few days. Symptoms are staying the same. Associated symptoms includes ear pressure . Denies nausea, vomiting , and diarrhea. Treatments tried include nothing so far. with no relief of symptoms. Sick contacts: unknown. History of asthma, frequent episodes of bronchitis, chronic bronchitis, bronchiectasis or COPD: No Smoker: No Seasonal/environmental allergies: No The ROS is otherwise negative. The patient's pmh, medications, allergies, and past visits are reviewed. PHYSICAL EXAM: BP 120/68 Pulse 96 Temp 36.8 ?C (98.2 ?F) Resp 16 Wt 44.9 kg (99 lb) LMP 08/06/2014 (LMP Unknown) SpO2 99% BMI 15.98 kg/m? General appearance: alert, cooperative, pleasant, in no acute distress Head: Normocephalic Eyes: EOM's intact, conjunctiva pink and moist, no icterus, sclera white, non-injected Ears: Right ear: External ear/canal- Normal, TM -erythema and bulging. Left ear: External ear/canal- Normal, TM - clear with good landmarks Oropharynx:moist without lesions Heart: Negative. RRR without obvious murmur, gallop, or rubs. No ectopy. Lungs: clear to auscultation, without rales or wheeze, good air exchange PAST MEDICAL HISTORY Diagnosis Date Anxiety disorder 06/23/2011 Chronic obstructive pulmonary disease (COPD) ([facility]) Complicated grief 06/23/2011 Depression Depression, major 04/23/2010 Emphysema/COPD ([facility]) 04/23/2010 Fibromyalgia 03/28/[address] Bergman Hot flashes 02/28/2013 Inflammatory polyarthropathy ([facility]) 03/28/[address] Bergman Marcia - Fre[place]man tear 09/2010 received transfusion Post-traumatic stress disorder 06/03/2010 RSD (reflex sympathetic dystrophy) 03/28/2013 Right upper extremity screening for Type 2 diabetes mellitus without complication ([facility]) 07/16/2016 PAST SURGICAL HISTORY Procedure Laterality Date ESOPHAGOGASTRODUODENOS COPY TRANSORAL DIAGNOSTIC 10/07/2010 EGD [facility] inpt n /H-pylori negative LAMINOTOMY (HEMILAMINECTOMY), WITH DECOMPRESSION OF NERVE ROOT(S) Right 03/12/2020 L5-S1 discectomy, [facility], Dr. Bety Spicer LIG/TRNSXJ FLP TUBE ABDL/VAG APPR UNI/BI Tubal ligation PAST SURGICAL HISTORY OF 07/24/2018 Complete hysterectomy PAST SURGICAL HISTORY OF Right carpal tunnel ALLERGIES Cortisone; Latex, Natural Rubber; Penicillins; Iv Contrast [Iodine]; Meloxicam; Entex [Phenylephrine-Guaifen esin]; and Naprosyn [Naproxen] MEDICATIONS gabapentin (NEURONTIN) 600 mg tablet Take 1 tablet by mouth three times daily for 30 days. FLUoxetine (PROZAC) 40 mg capsule Take 2 capsules by mouth once daily. albuterol HFA (PROVENTIL HFA, VENTOLIN HFA) 90 mcg/actuation inhaler Inhale 2 Puffs as instructed every 4 hours as needed for wheezing/shortness of breath. Patient requests VENTOLIN please. With spacer please. cyclobenzaprine (FLEXERIL) 10 mg tablet Take 1 tablet by mouth three times daily as needed for muscle spasm. atorvastatin (LIPITOR) 20 mg tablet Take 1 tablet by mouth once daily. omeprazole (PRILOSEC) 40 mg capsule Take 40 mg by mouth. acetaminophen (TYLENOL EXTRA STRENGTH) 500 mg tablet Take 2 tablets by mouth every 6 hours as needed for pain. cefdinir (OMNICEF) 250 mg/5 mL suspension Take 6 mL by mouth twice daily for 7 days. FAMILY HISTORY Problem Relation Age of Onset Diabetes Mother Hypertension Mother Cancer Mother Coronary Artery Disease Father myesthenia gravis Heart Father By-pass COPD Brother other (Smoker) Brother Social History Tobacco Use Smoking status: Every Day Packs/day: 1.00 Years: 20.00 Additional pack years: 0.00 Total pack years: 20.00 Types: Cigarettes Smokeless tobacco: Never Tobacco comments: Down to a couple cigarettes a day Vaping Use Vaping Use: Never used Substance Use Topics Alcohol use: Not Currently Comment: quit drinking 01/25/18 Drug use: No ASSESSMENT/PLAN: 1. URI, acute - ICD9: 465.9, ICD10: J06.9 (primary diagnosis) - COVID AND INFLUENZA A/B AND RSV NAAT, ROUTINE 2. Acute otitis media, left - ICD9: 382.9, ICD10: H66.92 - CEFDINIR 250 MG/5 ML ORAL SUSPENSION Prescription instructions reviewed with patient as applicable. Potential red flag symptoms discussed with the patient. Reviewed appropriate acti (more content not included)... Normal [facility] ROUTINE FLU A/B + RSVon 11-12 FLUAV RNA MALINA+probe Ql (Unsp spec) Not detected Normal Not Detected [facility] Comment on above: Order Comment: Speci men Type: SWAB OF INTERNAL NOSEOrdering Facility: [facility] Address: [address] [place] [address] Performed By: #### R TFRSV, 70730-3 ####[facility] LABCLIA [id number] [place] [address] [place] FLUBV RNA MALINA+probe Ql (Unsp spec) Not detected Normal Not Detected [facility] Comment on above: Order Comment: Speci men Type: SWAB OF INTERNAL NOSEOrdering Facility: [facility] Address: [address] [place] [address] Performed By: #### R TFRSV, 88773-8 ####[facility] [id number] [place] [address] [place] RSV A RNA MALINA+probe Ql (Unsp spec) Not detected Normal Not Detected [facility] Comment on above: Order Comment: Speci men Type: SWAB OF INTERNAL NOSEOrdering Facility: [facility] Address: [address] [address] Performed By: #### R TFRSV, 53422-5 ####[facility] [id number] [place] [address] [place] SARS-CoV-2 RNA Resp Ql MALINA+p robeon 11-22-2022 SARS-CoV-2 (COVID-19) RNA MALINA+probe Ql (Resp) COVID 19 RESULT: Not detected The method used is RT-PCR or an equivalent NAAT method. Reference Range (the expected result in uninfected individuals): Not detected Normal [facility] Comment on above: Performed By: #### R TFRSV, 29948-3 ####[facility] [id number] [place] [address] [place] XR Wrist - left 4 Viewson IMPRESSION: No acute osseous abnormality Physician Specialist: MARY Transcribe Date/Time: Apr 23 2022 9:40A Dictated by : VALERIE BOOGIE MD This examination was interpreted and the report reviewed and electronically signed by: VALERIE BOOGIE MD on Apr 23 2022 9:44AM [facility] DIVISION OF RADIOLOGY * * *Final Report* * * DATE OF EXAM: Apr 23 2022 9:38AM WOX [id number] - XR WRIST 4V PA/LAT/OBL/SCAPH LT / PROCEDURE REASON: Wrist injury, left, initial encounter * * * * Physician Interpretation * * * * EXAMINATION: XR WRIST 4V PA/LAT/OBL/SCAPH LT CLINICAL HISTORY: Left wrist pain after injury Technique: XR WRIST 4V PA/LAT/OBL/SCAPH LT -- LEFT with 4 views on 4 images Comparison: None RESULT: No acute fracture or dislocation. Joint spaces are maintained. DIVISION OF RADIOLOGY Provider, Liat turner [place] - 04/23/2022 * * *Final Report* * * DATE OF EXAM: Apr 23 2022 9:38AM WOX [id number] - XR WRIST 4V PA/LAT/OBL/SCAPH LT / PROCEDURE REASON: Wrist injury, left, initial encounter * * * * Physician Interpretation * * * * EXAMINATION: XR WRIST 4V PA/LAT/OBL/SCAPH LT CLINICAL HISTORY: Left wrist pain after injury Technique: XR WRIST 4V PA/LAT/OBL/SCAPH LT -- LEFT with 4 views on 4 images Comparison: None RESULT: No acute fracture or dislocation. Joint spaces are maintained. IMPRESSION IMPRESSION: No acute osseous abnormality Physician Specialist: [facility] Transcribe Date/Time: Apr 23 2022 9:40A Dictated by : VALERIE BOOGIE MD This examination was interpreted and the report reviewed and electronically signed by: VALERIE BOOGIE MD on Apr 23 2022 9:44AM [facility] Radiology Study observation (narrative) [facility] XR Wrist - left 4 ViewsOrder ed By: Liat Provider on 04-23-2022 [facility] CNOVon 10-22-2021 CNOV Office Visit (SPAGWO ) BARBARA HERNANDEZ ([id number]) 1965 F T Date Time Provider Department 10/22/21 8:45 AM PAUL MARTIN During your visit today, we recorded the following information about you: Pulse Respiration 77/minute 16/minute Paul Martin MD 10/22/2021 9:14 AM Signed [facility] Today's Date: 10/22/2021 Last Visit: 10/05/2021 Name: Barbara Hernandez : 1965 Purpose: Established Patient Encounter Interval History: Since last encounter, Barbara Hernandez reports that the chronic problem(s) of neck and low back pain are worse. She continues to complain of neck pain and frequent headaches. She has started PT for her low back pain at [facility], completed a course of 5 visits from approximately July - September 2021, disrupted by her car breaking down (has since been repaired). Lyfrankiea was discussed for her pain, but she preferred to stay on Gabapentin. Regarding medications: The following medication(s) were started: None The following medication(s) were discontinued: None The following medication(s) were continued: Neurontin 600mg TID - has helped control nightmares Tylenol OTC - takes 2000mg every 5 hours, notes this does not help Overall, the medication(s) have helped improve pain and ADL's. They are well-tolerated. The following procedures were performed: Medial branch blocks bilateral C4-5,5-6,6-7 was performed on 09/16/2021, with no relief of pain. She has reported worsening low back pain radiating into the right lower limb from her knee to her foot since the injection. She reports that she may be allergic to Bupivacaine. A repeat MRI was discussed, but she declined stating that her insurance would not cover it. She has been to PT as advised. She continues doing some stretching exercises daily that she learned in therapy. She reports that she is not interested in further injections at this time. The following new imaging or diagnostic tests were obtained, with relevant findings reported below: None Her low back surgeon, Dr. Spicer, recently advised her to have no further low back surgeries. She was recently worked up for HTN, reportedly this is due to pain and she had a cleared cardiology eval. She has reportedly had several EMG studies. New Problems reported: None Recall from prior medical records: She has had prior low back surgery. She has had several low back injections with Dr. Wharton, without relief (review of records show that she had several SI joint injections, Caudal injection, TFESI (Right L3-4 and L4-5). 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 She has reported that she has considered resuming drinking to cope with her pain. Her son's was on October 13. Current Status: INTAKE PAIN ASSESSMENT 09/21/2021 10/22/2021 Are you having pain associated with your visit today? 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 Also left upper limb. Exacerbating factors: unable to pinpoint exacerbating factors/positions Relieving factors: unable to pinpoint positions/factors that are mitigating Interferes with: walking, sleeping, driving, household cleaning, and social activities The patient reports previous difficulty with bowel or bladder control, unintentional weight loss, and fevers, chills, or night sweats, attributed to NSAID usage, but at this time, she is doing well. Medications: CURRENT Pain Medications: Opioid Pain Medications: None Date last filled: N/A Quantity filled: N/A How many left: N/A Time most recent dose taken: N/A Non-Opioid Pain Medications: Neurontin 600mg TID Tgwl-[id number]-zuzzrvk (OTC) Pain Meds: Tylenol OTC Compliance: PDMP website checked and validated. All prescriptions have been APPROPRIATELY filled. No suspicious activity was identified. by Paul Martin MD 10/22/2021 Percocet 5/325, #15 (08/06), #12 (07/24/2021) [place] 5/325, #9 (04/29), #6 (04/10/2021) Last Drug screen: Not Applicable Risk Assessment: JOÃO-7: JOÃO - 7 SCORES 07/02/2021 JOÃO-7 Score 14 (0-4) minimal anxiety, (5-9) mild anxiety, (10-14) moderate anxiety, (15-21) severe anxiety PHQ-9: PHQ-9 01/08/2015 12/10/2015 08/04/2016 Score 18 10 10 (0-4) minimal depression, (5-9) mild depression, (10-14) moderate depression, (15-19) moderately s (more content not included)... Normal [facility] Tahir 10-22-2021 [facility] Telephone (SPAGWO) DAVIDBARBARA ([id number]) 1965 F [facility] Date Time Provider Department 10/22/21 PAUL MARTIN During your visit today, we recorded the following information about you: Joseph Chaidez 10/22/2021 9:21 AM Signed 1.Are you diabetic No 2. Are you on any blood thinners? No 3. Are you taking any aspirin? Yes. Please list the current medications being prescribed sometimes, baby asprin. 4. Have you had any recent imaging done on your body part that's being injected? No 5. Do you have any allergies to latex? Yes 6. Do you have any allergies to seafood? No 7. Do you have any allergies to shellfish? No 8. Do you have any allergies to x-ray dye? No 9. Are you taking Xanax for the procedure? No 10. Have you done physical therapy in the last year? Yes If yes, When and Where? [facility]. (Medical Records Release needs to be signed.) 11. Were the pre-procedure instructions explained to the patient? Yes 12. Do you have a pacemaker? No 13. Do you have an internal stimulator of any kind? No If yes, please bring the remote with you to your procedure visit. 14. Have you received the COVID-19 Vaccine? Yes. If yes, date(s) received: explained to patient. (Patient should not receive a procedure including steroids 14 days prior to their first dose of the COVID vaccine. They should not receive any procedure containing steroids in the time frame between their 1st and 2nd doses of the COVID vaccine. They should not receive a procedure containing steroids 14 days after their 2nd dose of the COVID vaccine.) Joseph Chaidez Allergies As of Date: 10/22/2021 Noted Allergy Reaction CORTISONE 08/14/2014 4 - Hives LATEX, NATURAL RUBBER 04/23/2010 2 - Rash PENICILLINS 12/21/2004 4 - Hives IV CONTRAST (IODINE) 09/16/2021 14 - Other: See Comments Comments: Patient reports she has had reactions to contrast on occasion, not consistently, and no specific reaction was noted MELOXICAM 08/13/2021 8 - GI Upset ENTEX (PHENYLEPHRINE-GUAIFEN ESIN) 01/04/2005 5 - Intolerance NAPROSYN (NAPROXEN) 12/21/2004 2 - Rash Date Reviewed: 10/22/2021 Reviewed by: Paul Martin MD - Fully Assessed Reason for Visit: Patient Update [1234] Prescriptions as of 10/22/2021 - gabapentin (NEURONTIN) 300 mg capsule Take 2 pills by mouth TID - albuterol HFA (PROVENTIL HFA, VENTOLIN HFA) 90 mcg/actuation inhaler Inhale 2 Puffs as instructed every 4 hours as needed for wheezing/shortness of breath. Patient requests VENTOLIN please. With spacer please. - acetaminophen (TYLENOL EXTRA STRENGTH) 500 mg tablet Take 2 tablets by mouth every 6 hours as needed for pain. - FLUoxetine (PROZAC) 20 mg capsule Take 4 capsules by mouth daily at bedtime. - atorvastatin (LIPITOR) 20 mg tablet Take 1 tablet by mouth once daily. Problem List As Of Date 10/22/2021 Noted Resolved Depression, major [F32.9] 04/23/2010 Emphysema/COPD (HCC) [J43.9] 04/23/2010 Cigarette smoker [F17.210] 05/05/2010 Post-traumatic stress disorder [F43.10] 06/03/2010 Complicated grief [F43.21] 06/23/2011 02/02/2021 Anxiety disorder [F41.9] 06/23/2011 Hip pain [M25.559] 02/07/2013 Hot flashes [R23.2] 02/28/2013 02/27/2021 RSD (reflex sympathetic dystrophy) [G90.50] 03/28/2013 Fibromyalgia [M79.7] 03/28/2013 Inflammatory polyarthropathy (HCC) [M06.4] 03/28/2013 NO SHOW [[id number]] 09/04/2014 12/10/2015 Nightmares associated with chronic post-traumat* 8 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] 02/27/2021 Impaired glucose metabolism [R73.09] 02/27/2021 Left shoulder pain [M25.512] 05/08/2021 Cervicalgia [M54.2] 05/08/2021 Cervical spondylosis without myelopathy [M47.81*09/16/2021 Encounter Status:Closed by JOSEPH CHAIDEZ on 10/22/21 [facility] (AGSPINE3) DAVIDBARBARA M ([id number]) 1965 F C[facility] Date Time Provider Department 09/22/21 STEFANIA MAHMOOD AGSPINE3 During your visit today, we recorded the following information about you: Erin Ferrell 09/22/2021 1:10 PM Signed Called patient to schedule office visit. VM is full and cannot leave message. Erin Ferrell Allergies As of Date: 09/22/2021 Noted Allergy Reaction CORTISONE 08/14/2014 4 - Hives LATEX, NATURAL RUBBER 04/23/2010 2 - Rash PENICILLINS 12/21/2004 4 - Hives IV CONTRAST (IODINE) 09/16/2021 14 - Other: See Comments Comments: Patient reports she has had reactions to contrast on occasion, not consistently, and no specific reaction was noted MELOXICAM 08/13/2021 8 - GI Upset ENTEX (PHENYLEPHRINE-GUAIFEN ESIN) 01/04/2005 5 - Intolerance NAPROSYN (NAPROXEN) 12/21/2004 2 - Rash Date Reviewed: 09/22/2021 Reviewed by: Stefania Mahmood PA-C - Fully Assessed Reason for Visit: Future Appointment [256] Prescriptions as of 09/22/2021 - gabapentin (NEURONTIN) 300 mg capsule Take 4 capsules by mouth daily at bedtime for 180 days. - albuterol HFA (PROVENTIL HFA, VENTOLIN HFA) 90 mcg/actuation inhaler Inhale 2 Puffs as instructed every 4 hours as needed for wheezing/shortness of breath. Patient requests VENTOLIN please. With spacer please. - acetaminophen (TYLENOL EXTRA STRENGTH) 500 mg tablet Take 2 tablets by mouth every 6 hours as needed for pain. - FLUoxetine (PROZAC) 20 mg capsule Take 4 capsules by mouth daily at bedtime. - atorvastatin (LIPITOR) 20 mg tablet Take 1 tablet by mouth once daily. Problem List As Of Date 09/22/2021 Noted Resolved Depression, major [F32.9] 04/23/2010 Emphysema/COPD (HCC) [J43.9] 04/23/2010 Cigarette smoker [F17.210] 05/05/2010 Post-traumatic stress disorder [F43.10] 06/03/2010 Complicated grief [F43.21] 06/23/2011 02/02/2021 Anxiety disorder [F41.9] 06/23/2011 Hip pain [M25.559] 02/07/2013 Hot flashes [R23.2] 02/28/2013 02/27/2021 RSD (reflex sympathetic dystrophy) [G90.50] 03/28/2013 Fibromyalgia [M79.7] 03/28/2013 Inflammatory polyarthropathy (HCC) [M06.4] 03/28/2013 NO SHOW [[id number]] 09/04/2014 12/10/2015 Nightmares associated with chronic post-traumat* 8 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] 02/27/2021 Impaired glucose metabolism [R73.09] 02/27/2021 Left shoulder pain [M25.512] 05/08/2021 Cervicalgia [M54.2] 05/08/2021 Cervical spondylosis without myelopathy [M47.81*09/16/2021 Encounter Status:Closed by ERIN FERRELL on 09/22/21 [facility] Tahir 09-21-2021 [facility] Telephone (AGSPINE1) BARBARA HERNANDEZ ([id number]) 1965 F C[facility] Date Time Provider Department 09/21/21 PAUL MARTIN AGSPINE1 During your visit today, we recorded the following information about you: Tiffanie Grace 09/21/2021 3:14 PM Signed I have received a voicemail from Allyssa at [facility] about this patient. They did the phone call to her to check on her after her procedure and she states that she is at a 8 out 10 in pain and has stated to have left ear and neck pain. The patient was advised to contact the office but she states she is waiting until her appointment she has scheduled with Stefania tomorrow. Tiffanie Grace Paul Martin MD 09/21/2021 5:03 PM Signed Acknowledged. I am available if any further questions after she sees our PA tomorrow. Paul Martin III, MD, BOBBY Allergies As of Date: 09/21/2021 Noted Allergy Reaction CORTISONE 08/14/2014 4 - Hives LATEX, NATURAL RUBBER 04/23/2010 2 - Rash PENICILLINS 12/21/2004 4 - Hives IV CONTRAST (IODINE) 09/16/2021 14 - Other: See Comments Comments: Patient reports she has had reactions to contrast on occasion, not consistently, and no specific reaction was noted MELOXICAM 08/13/2021 8 - GI Upset ENTEX (PHENYLEPHRINE-GUAIFEN ESIN) 01/04/2005 5 - Intolerance NAPROSYN (NAPROXEN) 12/21/2004 2 - Rash Date Reviewed: 09/16/2021 Reviewed by: Allyssa Dubois RN - Fully Assessed Reason for Visit: Patient Update [1234] Prescriptions as of 09/21/2021 - gabapentin (NEURONTIN) 300 mg capsule Take 4 capsules by mouth daily at bedtime for 180 days. - oxyCODONE-acetaminophe n (PERCOCET) 5-325 mg tablet Take by mouth every 8 hours as needed for pain. - methylPREDNISolone (MEDROL, EMILY,) 4 mg Dose-Pack As Instructed per package - baclofen (LIORESAL) 10 mg tablet Take 1 tablet by mouth twice daily. - albuterol HFA (PROVENTIL HFA, VENTOLIN HFA) 90 mcg/actuation inhaler Inhale 2 Puffs as instructed every 4 hours as needed for wheezing/shortness of breath. Patient requests VENTOLIN please. With spacer please. - acetaminophen (TYLENOL EXTRA STRENGTH) 500 mg tablet Take 2 tablets by mouth every 6 hours as needed for pain. - FLUoxetine (PROZAC) 20 mg capsule Take 4 capsules by mouth daily at bedtime. - atorvastatin (LIPITOR) 20 mg tablet Take 1 tablet by mouth once daily. Problem List As Of Date 09/21/2021 Noted Resolved Depression, major [F32.9] 04/23/2010 Emphysema/COPD (HCC) [J43.9] 04/23/2010 Cigarette smoker [F17.210] 05/05/2010 Post-traumatic stress disorder [F43.10] 06/03/2010 Complicated grief [F43.21] 06/23/2011 02/02/2021 Anxiety disorder [F41.9] 06/23/2011 Hip pain [M25.559] 02/07/2013 Hot flashes [R23.2] 02/28/2013 02/27/2021 RSD (reflex sympathetic dystrophy) [G90.50] 03/28/2013 Fibromyalgia [M79.7] 03/28/2013 Inflammatory polyarthropathy (HCC) [M06.4] 03/28/2013 NO SHOW [[id number]] 09/04/2014 12/10/2015 Nightmares associated with chronic post-traumat* 8 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 Hernandez expressed concerns today about her medical care. She reports that her Neurontin was stopped last office visit, which she had been taking for many years, and she was switched to Lyrica. She reports that she is unhappy about this, as she was having less PTSD symptoms on Neurontin. Review of her last office note shows that she had requested a change from Neurontin, which she denies. It is not clear the source of the miscommunication, but I apologized for any miscommunication and am switching her back to Neurontin, discontinuing the Lyrica. She was taking Neurontin 1200mg qHS most recently and will be restarted on this dose. I will send her a mychart, suggesting that she take 600mg qHS for a week, then increase back to 1200mg qHS. She also notes that she was upset that she has not had any injections for her low back, as she has had worsening low back pain since a recent fall. Review of last visit note shows that this was discussed and considered, but that new MRI was desired by both herself and the clinician prior to any injections. She was to start PT for treatment and also to allow for an updated MRI. I informed her of all of this, and she reports that this was indeed what was discussed. While her care looks appropriate, I heard her concerns and I offered to resume seeing her in [place]. However, I asked that we split time between myself and my HOME CARE NURSE, as she also had concerns about access, to which she agreed. I will update my HOME CARE NURSE about all of this also. Paul Martin III, MD, BOBBY Allergies As of Date: 09/16/2021 Noted Allergy Reaction CORTISONE 08/14/2014 4 - Hives LATEX, NATURAL RUBBER 04/23/2010 2 - Rash PENICILLINS 12/21/2004 4 - Hives IV CONTRAST (IODINE) 09/16/2021 14 - Other: See Comments Comments: Patient reports she has had reactions to contrast on occasion, not consistently, and no specific reaction was noted MELOXICAM 08/13/2021 8 - GI Upset ENTEX (PHENYLEPHRINE-GUAIFEN ESIN) 01/04/2005 5 - Intolerance NAPROSYN (NAPROXEN) 12/21/2004 2 - Rash Date Reviewed: 09/16/2021 Reviewed by: Allyssa Dubois RN - Fully Assessed Reason for Visit: Medical Health Researcher - Other [3602] Primary Visit Diagnosis:Post laminectomy syndrome [M96.1] Other Visit Diagnoses:STEPHANIE positive [R76.8] Generalized anxiety disorder [F41.1] Post-traumatic stress disorder [F43.10] RSD (reflex sympathetic dystrophy) [G90.50] Fibromyalgia [M79.7] Order(s):gabapentin (NEURONTIN) 300 mg capsuleTake 4 capsules by mouth daily at bedtime for 180 days.Disp: 120 capsuleRfl: 5 Prescriptions as of 09/16/2021 - gabapentin (NEURONTIN) 300 mg capsule Take 4 capsules by mouth daily at bedtime for 180 days. - oxyCODONE-acetaminophe n (PERCOCET) 5-325 mg tablet Take by mouth every 8 hours as needed for pain. - methylPREDNISolone (MEDROL, EMILY,) 4 mg Dose-Pack As Instructed per package - baclofen (LIORESAL) 10 mg tablet Take 1 tablet by mouth twice daily. - albuterol HFA (PROVENTIL HFA, VENTOLIN HFA) 90 mcg/actuation inhaler Inhale 2 Puffs as instructed every 4 hours as needed for wheezing/shortness of breath. Patient requests VENTOLIN please. With spacer please. - acetaminophen (TYLENOL EXTRA STRENGTH) 500 mg tablet Take 2 tablets by mouth every 6 hours as needed for pain. - FLUoxetine (PROZAC) 20 mg capsule Take 4 capsules by mouth daily at bedtime. - atorvastatin (LIPITOR) 20 mg tablet Take 1 tablet by mouth once daily. Problem List As Of Date 09/16/2021 Noted Resolved Depression, major [F32.9] 04/23/2010 Emphysema/COPD (HCC) [J43.9] 04/23/2010 Cigarette smoker [F17.210] 05/05/2010 Post-traumatic stress disorder [F43.10] 06/03/2010 Complicated grief [F43.21] 06/23/2011 02/02/2021 Anxiety disorder [F41.9] 06/23/2011 Hip pain [M25.559] 02/07/2013 Hot flashes [R23.2] 02/28/2013 02/27/2021 RSD (reflex sympathetic dystrophy) [G90.50] 03/28/2013 Fibromyalgia [M79.7] 03/28/2013 Inflammatory polyarthropathy (HCC) [M06.4] 03/28/2013 NO SHOW [125440] 09/04/2014 12/10/2015 Nightmares associated with chronic post-traumat* 8 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 Medications Discontinued During This Encounter Prescriptions - pregabalin (LYR (more content not included)... Normal [facility] HISTORY PHYSICALon HISTORY PHYSICAL HNO ID: [id number] Author: Paul Martin MD Service: Pain Management Author Type: Physician Type: HANDP Filed: 09/16/2021 10:36 AM Note Text: LOCAL PROCEDURE HISTORY AND PHYSICAL EXAM SERVICE DATE: 09/16/2021 SERVICE TIME: 10:34 AM Provisional Diagnosis/Treatment Plan: Medial branch blocks bilateral C4-5,5-6,6-7 under fluoroscopy for cervical spondylosis Subjective HPI: This is a 55 year old female who presents with neck pain, facet-mediated, here for above-mentioned procedure. MEDICATIONS: Prior to Admission medications as of 09/16/21 1034 Medication Sig Last Dose Taking pregabalin (LYRICA) 50 mg capsule Take 1 capsule by mouth three times daily for 30 days. Take one pill at night for one week, then add one pill in the morning for one week, then take on pill 3 times per day thereafter 09/15/2021 at Unknown time Yes baclofen (LIORESAL) 10 mg tablet Take 1 tablet by mouth twice daily. 09/15/2021 at Unknown time Yes albuterol HFA (PROVENTIL HFA, VENTOLIN HFA) 90 mcg/actuation inhaler Inhale 2 Puffs as instructed every 4 hours as needed for wheezing/shortness of breath. Patient requests VENTOLIN please. With spacer please. 09/06/2021 at Unknown time Yes acetaminophen (TYLENOL EXTRA STRENGTH) 500 mg tablet Take 2 tablets by mouth every 6 hours as needed for pain. 09/16/2021 at Unknown time Yes FLUoxetine (PROZAC) 20 mg capsule Take 4 capsules by mouth daily at bedtime. 09/15/2021 at Unknown time Yes atorvastatin (LIPITOR) 20 mg tablet Take 1 tablet by mouth once daily. 09/15/2021 at Unknown time Yes oxyCODONE-acetaminophe n (PERCOCET) 5-325 mg tablet Take by mouth every 8 hours as needed for pain. Unknown at Unknown time methylPREDNISolone (MEDROL, EMILY,) 4 mg Dose-Pack As Instructed per package Unknown at Unknown time ALLERGIES Allergen Reactions - Cortisone Hives - Latex, Natural Rubb* Rash - Penicillins Hives - Meloxicam GI Upset - Entex [Phenylephrin* Intolerance - Naprosyn [Naproxen] Rash Objective PHYSICAL EXAM: The remainder of the physical exam is noncontributory. GENERAL: Alert, no distress, cooperative LUNGS: Lungs clear to auscultation, Good diaphragmatic excursion CARDIAC: Normal S1 and S2; no rubs, murmurs, or gallops NEURO: Gait normal. Reflexes normal and symmetric. Sensation grossly intact LMP 08/06/2014 (LMP Unknown) PAIN ASSESSMENT: PAIN EVALUATION No data found in the last 1 encounters. Assessment/Plan Active Problems: Cervical spondylosis without myelopathy - Medial branch blocks as noted above planned for today Resolved Problems: * No resolved hospital problems. * Medication and Non-Pharmacologic VTE Prophylaxis/Anticoagul ants VTE Prophylaxis: VTE prophylaxis appropriate SIGNATURE: Paul Martin MD PATIENT NAME: Barbara Hernandez DATE: September 16, 2021 TIME: 10:34 AM Normal [facility] NURSING PROGon 09-16-2021 NURSING PROG HNO ID: [id number] Author: Allyssa Dubois RN Service: Nursing Author Type: Registered Nurse Type: Nursing Progress Note Filed: 09/21/2021 2:22 PM Note Text: Post op call completed. Pt stated that her neck pain improved for a short amount of time. States neck pain is an 8/10 and she also advised me that she developed left ear pain that travels to her throat, that began Tuesday evening. I advised patient to contact Dr. Martin's office to advise them of ear and neck pain. Pt said she was expecting a call from their office tomorrow. Left voice message for Crystal at Dr. Martin's office advising her of patient's status. [facility] NURSING PROG HNO ID: [id number] Author: Allyssa Dubois RN Service: Nursing Author Type: Registered Nurse Type: Nursing Progress Note Filed: 09/16/2021 12:22 PM Note Text: Pt ambulated with steady gait to bathroom. Denied numbness or tingling in extremities. Denies any numbness or tingling in throat. [facility] NURSING PROG HNO ID: [id number] Author: Allyssa Dubois RN Service: Nursing Author Type: Registered Nurse Type: Nursing Progress Note Filed: 09/16/2021 12:11 PM Note Text: Pt resting in chair with siderails up x2. Denies difficulty with swallowing or numbness in throat or mouth. [facility] OPERATIVE NOon 09-16-2021 OPERATIVE NO HNO ID: [id number] Author: Paul Martin MD Service: Pain Management Author Type: Physician Type: Operative Report Filed: 09/16/2021 11:46 AM Note Text: OPERATIVE/PROCEDURE REPORT LOG ID: [id number] SURGERY/PROCEDURE DATE: 09/16/2021 INCISION/PROCEDURE START TIME: 11:21 AM INCISION CLOSE/PROCEDURE END TIME: 11:42 AM SURGEON(S)/PROCEDURALI ST(S) AND REGULATORY AND COMPLIANCE TECHNICIAN(S): Surgeon(s) and Role: * Paul Martin MD - Primary No Additional Staff SURGERY/PROCEDURE(S): Medial branch blocks bilateral C4-5,5-6,6-7 under fluoroscopic guidance ANESTHESIA: Local Injectate: A total of 4cc, consisting of 4cc of 0.75% Bupivacaine An additional 3cc of 1% Lidocaine was used for local anesthesia of the soft tissue and at the targeted location. Comments: Due to patient's reported allergy to contrast, no contrast was given today. SURGERY/PROCEDURE DETAILS: Procedure: The patient was prepped and draped in a sterile fashion in the prone position after informed consent was signed and all patient questions were answered including the risks, benefits, alternative treatment options, and prognosis. The risks are as mentioned above. To block the facet joint nerves from C4 through C7, the lateral masses of these respective levels were localized under fluoroscopic visualization. A spinal needle was inserted down to the waist at the above-mentioned cervical levels. Using biplanar imaging, the needle was then walked off until it rested just lateral to the trough of the lateral mass of the medial branch nerve lies, which innervates the cervical facet joint. After contact with periosteum and negative aspirate for blood and CSF, correct placement of each needle was confirmed with multiplanar radiographs. Next, a 0.5cc volume of the injectate noted above was then injected. PRE-OP/PRE-PROCEDURE DIAGNOSIS: Cervical spondylosis POST-OP/POST-PROCEDURE DIAGNOSIS: Same as Preop ESTIMATED BLOOD LOSS: 0 ml SPECIMENS: None IMPLANTABLE DEVICES: None DRAINS: None COMPLICATIONS: None PARTICIPATION IN SURGERY/PROCEDURE: I/primary surgeon/proceduralist performed the entire procedure. SIGNATURE: Paul Martin MD PATIENT NAME: Barbara Hernandez DATE: September 16, 2021 TIME: 11:45 AM Normal [facility] CNOVon 08-13-2021 CNOV Office Visit (SPAGWO ) BARBARA HERNANDEZ ([id number]) 1965 F T Date Time Provider Department 08/13/21 1:15 PM BONIFACIO CHRISTIE SPAGWO During your visit today, we recorded the following information about you: Pulse Respiration 96/minute 16/minute Yarelis Johnson MA 08/13/2021 6:00 PM Signed Review of Systems Constitutional: Positive for activity change, chills, fever and unexpected weight change. Gastrointestinal: Negative for bowel retention or incontinence Genitourinary: Positive for difficulty urinating. Negative for bladder retention or incontinence Musculoskeletal: Positive for arthralgias, back pain, gait problem, joint swelling, myalgias, neck pain and neck stiffness. Neurological: Positive for weakness and numbness. Negative for headaches. Psychiatric/Behavioral : Positive for dysphoric mood and sleep disturbance. Negative for suicidal ideas. The patient is nervous/anxious. Bonifacio Christie APRN.HOME CARE NURSE 08/13/2021 6:00 PM Signed [facility] General Today's Date: 08/13/2021 Last Visit: 07/02/21 Name: Barbara Hernandez : 1965 Purpose: Established Patient Encounter Interval History: Since last encounter, Barbara Hernandez; PMH significant for COPD/Emphysema, Tobacco use, alcoholism, thrombocytosis, elevated LFT's, depression, depression, Anxiety, PTSD, FM, RSD, previous laminectomy L5/S1 03/11/20; reports that the chronic problem(s) of neck and low back pain are Worse. Her spine surgeon would like the patient to try Cervical epidural injections before they can discuss surgical intervention. Since has last evaluation she has completed her Cervical MRI. She has been to [place] [facility] x2-3 for increased pain. States she has had several falls and now is having increased RIGHT hip pain. Patient was offered medrol dosepak, states she has been ineffective for her pain. She ED gave her a RX for percocet for prn pain. She was also given a Rx for Flexeril (in which she brought to the office and decided to tear it up during her visit today). On one of her ER visits it was noted she was given morphine for pain, but the patient states they never gave me that, they just said they gave it to me. We provided her with a Rx for Baclofen which she does not find to be beneficial. States she needs an MRI of her back. States she does home exercises that do not help, she has not had therapy for her low back in the last 3-6 months. - Pain Description: ? Timing: constant ? Character: Burning, Throbbing, Spasms, Pins and [place], Numb, Tingling, Tender, Stinging, Shooting, Cramps, Aching and Dull ? Primary Location: Neck and low back, neck is worst pain today ? Radiation: LEFT shoulder and arm, RIGHT lateral/posterior leg ? Exacerbating factors: everything causes me pain ? Relieving factors: medications ? Interferes with: physical activity and everything ? The patient reports 2 hours of uninterrupted sleep per night ? The patient denies difficulty with bowel or bladder control, unintentional weight loss, fevers, chills, or night sweats, numbness or tingling; complains of constipation and arm weakness. - New Problems reported: See above Current Status: INTAKE PAIN ASSESSMENT 07/02/2021 08/13/2021 Are you having pain associated with your visit today? Yes, Provider notified Yes, Provider notified Pain Scales Verbal (Numeric Rating or Visual Analog Scale) Verbal (Numeric Rating or Visual Analog Scale) Pain Level 8 10 Pain Location (No Data) Back Description Aching;Stabbing;Shooti ng Aching;Stabbing;Spasm Duration Amount of Time - - Duration Units Months Months Frequency Continuous Continuous Intervention/Comfort measure Exercise Cold Comments - - Current Pain Medications: ? Opioids: None ? NSAIDS: None, states I almost after taking Meloxicam and ibuprofen ? Anti-depressants: Prozac 20 mg daily ? Anti-convulsants: Gabapentin 1200mg at HS (PCP) ? Muscle relaxants: Robaxin 750mg BID prn ? Others: OTC Tylenol prn ? Analgesia: not adequate ? Current Anti-Coagulant Use: No ? PAST Pain Medications (for the chief complaint(s)): - Opioids: Tramadol, Vicodin or [place] (Hydrocodone), Morphine and Duragesic (Fentanyl Patch) - NSAIDS: Motrin (Ibuprofen) and Mobic (Meloxicam) - Anti-depressants: Pamelor ( Nortriptyline) and ativan - Anti-convulsants: none - Muscle Relaxants: Flexeril (Cyclobenzaprine) and Zanaflex (Tizanidine) - Others: Lidoderm Patch, Voltaren Gel and Salonpas Allergies: ALLERGIES Allergen Reactions - Cortisone Hives - Latex, Natural Rubb* Rash - Penicillins Hives - Entex [Phenylephrin* Intolerance - Naprosyn [Naproxen] Rash Data Reviewed: - Reviewed personally on today's date 08/13/2021 Relevant Imaging: MRI Spine Report No resulted procedures found. XR Lumbar Spine 07/02/21: FINDINGS: There are (more content not included)... Normal [facility] CNPNon 08-13-2021 CNPN Telephone (SPAGWO) BARBARA HERNANDEZ ([id number]) 1965 F [facility] Date Time Provider Department 08/13/21 PAUL MARTIN SPAGWO During your visit today, we recorded the following information about you: Yanique Reyes 08/13/2021 1:54 PM Signed 1.Are you diabetic No 2. Are you on any blood thinners? No 3. Are you taking any aspirin? No 4. Have you had any recent imaging done on your body part that's being injected? Yes MRI 5. Do you have any allergies to latex? Yes 6. Do you have any allergies to seafood? No 7. Do you have any allergies to shellfish? No 8. Do you have any allergies to x-ray dye? Yes 9. Are you taking Xanax for the procedure? No 10. Have you done physical therapy in the last year? No If yes, When and Where? (Medical Records Release needs to be signed.) 11. Were the pre-procedure instructions explained to the patient? Yes 12. Do you have a pacemaker? No 13. Do you have an internal stimulator of any kind? No If yes, please bring the remote with you to your procedure visit. 14. Have you received the COVID-19 Vaccine? No. If yes, date(s) received: (Patient should not receive a procedure including steroids 14 days prior to their first dose of the COVID vaccine. They should not receive any procedure containing steroids in the time frame between their 1st and 2nd doses of the COVID vaccine. They should not receive a procedure containing steroids 14 days after their 2nd dose of the COVID vaccine.) Yanique Reyes Allergies As of Date: 08/13/2021 Noted Allergy Reaction CORTISONE 08/14/2014 4 - Hives LATEX, NATURAL RUBBER 04/23/2010 2 - Rash PENICILLINS 12/21/2004 4 - Hives MELOXICAM 08/13/2021 8 - GI Upset ENTEX (PHENYLEPHRINE-GUAIFEN ESIN) 01/04/2005 5 - Intolerance NAPROSYN (NAPROXEN) 12/21/2004 2 - Rash Date Reviewed: 08/13/2021 Reviewed by: Bonifacio Christie APRN.HOME CARE NURSE - Fully Assessed Reason for Visit: Injections [199] Prescriptions as of 08/13/2021 - oxyCODONE-acetaminophe n (PERCOCET) 5-325 mg tablet Take by mouth every 8 hours as needed for pain. - iv contrast (will be provided with radiology test) MRI LSP Inject, intravenously, once for 1 dose. No IV access, insert saline lock prior to the beginning of sedation, infusion, injection of imaging exam. Discontinue saline lock post exam. If Pt. has a central line or IVAD, may access for administration according to line specific nursing protocol. Once exam is complete flush line and de-access according to line specific nursing protocol in the MR contrast administration guidelines link. - pregabalin (LYRICA) 50 mg capsule Take 1 capsule by mouth three times daily for 30 days. Take one pill at night for one week, then add one pill in the morning for one week, then take on pill 3 times per day thereafter - methylPREDNISolone (MEDROL, EMILY,) 4 mg Dose-Pack As Instructed per package - baclofen (LIORESAL) 10 mg tablet Take 1 tablet by mouth twice daily. - albuterol HFA (PROVENTIL HFA, VENTOLIN HFA) 90 mcg/actuation inhaler Inhale 2 Puffs as instructed every 4 hours as needed for wheezing/shortness of breath. Patient requests VENTOLIN please. With spacer please. - acetaminophen (TYLENOL EXTRA STRENGTH) 500 mg tablet Take 2 tablets by mouth every 6 hours as needed for pain. - FLUoxetine (PROZAC) 20 mg capsule Take 4 capsules by mouth daily at bedtime. - atorvastatin (LIPITOR) 20 mg tablet Take 1 tablet by mouth once daily. Problem List As Of Date 08/13/2021 Noted Resolved Depression, major [F32.9] 04/23/2010 Emphysema/COPD (HCC) [J43.9] 04/23/2010 Cigarette smoker [F17.210] 05/05/2010 Post-traumatic stress disorder [F43.10] 06/03/2010 Complicated grief [F43.21] 06/23/2011 02/02/2021 Anxiety disorder [F41.9] 06/23/2011 Hip pain [M25.559] 02/07/2013 Hot flashes [R23.2] 02/28/2013 02/27/2021 RSD (reflex sympathetic dystrophy) [G90.50] 03/28/2013 Fibromyalgia [M79.7] 03/28/2013 Inflammatory polyarthropathy (HCC) [M06.4] 03/28/2013 NO SHOW [[id number]] 09/04/2014 12/10/2015 Nightmares associated with chronic post-traumat* 8 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] 02/27/2021 Impaired glucose metabolism [R73.09] 02/27/2021 Left shoulder pain [M25.512] 05/08/2021 Cervicalgia [M54.2] 05/08/2021 Encounter Status:Closed by YANIQUE REYES on 08/13/21 [facility] 08-11-2021 CNPN Telephone (AGSPINE2) BARBARA HERNANDEZ ([id number]) 1965 F C[facility] Date Time Provider Department 08/11/21 MONTSE PALMA [facility] During your visit today, we recorded the following information about you: Montse Palma APRN.CNP 08/11/2021 6:33 AM Signed Records from [facility] placed into scan Montse Palma APRN.HOME CARE NURSE Allergies As of Date: 08/11/2021 Noted Allergy Reaction CORTISONE 08/14/2014 4 - Hives LATEX, NATURAL RUBBER 04/23/2010 2 - Rash PENICILLINS 12/21/2004 4 - Hives ENTEX (PHENYLEPHRINE-GUAIFEN ESIN) 01/04/2005 5 - Intolerance NAPROSYN (NAPROXEN) 12/21/2004 2 - Rash Date Reviewed: 08/04/2021 Reviewed by: Paul Martin MD - Fully Assessed Reason for Visit: Received Outside Medical Records [[id number]] Cmt: [facility] Prescriptions as of 08/11/2021 - methylPREDNISolone (MEDROL, EMILY,) 4 mg Dose-Pack As Instructed per package - baclofen (LIORESAL) 10 mg tablet Take 1 tablet by mouth twice daily. - albuterol HFA (PROVENTIL HFA, VENTOLIN HFA) 90 mcg/actuation inhaler Inhale 2 Puffs as instructed every 4 hours as needed for wheezing/shortness of breath. Patient requests VENTOLIN please. With spacer please. - acetaminophen (TYLENOL EXTRA STRENGTH) 500 mg tablet Take 2 tablets by mouth every 6 hours as needed for pain. - gabapentin (NEURONTIN) 300 mg capsule Take 4 capsules by mouth daily at bedtime for 120 days. - FLUoxetine (PROZAC) 20 mg capsule Take 4 capsules by mouth daily at bedtime. - atorvastatin (LIPITOR) 20 mg tablet Take 1 tablet by mouth once daily. Problem List As Of Date 08/11/2021 Noted Resolved Depression, major [F32.9] 04/23/2010 Emphysema/COPD (HCC) [J43.9] 04/23/2010 Cigarette smoker [F17.210] 05/05/2010 Post-traumatic stress disorder [F43.10] 06/03/2010 Complicated grief [F43.21] 06/23/2011 02/02/2021 Anxiety disorder [F41.9] 06/23/2011 Hip pain [M25.559] 02/07/2013 Hot flashes [R23.2] 02/28/2013 02/27/2021 RSD (reflex sympathetic dystrophy) [G90.50] 03/28/2013 Fibromyalgia [M79.7] 03/28/2013 Inflammatory polyarthropathy (HCC) [M06.4] 03/28/2013 NO SHOW [[id number]] 09/04/2014 12/10/2015 Nightmares associated with chronic post-traumat* 8 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] 02/27/2021 Impaired glucose metabolism [R73.09] 02/27/2021 Left shoulder pain [M25.512] 05/08/2021 Cervicalgia [M54.2] 05/08/2021 Encounter Status:Closed by MONTSE PALMA on 08/11/21 [facility] (AGSPINE3) BARBARA HERNANDEZ ([id number]) 1965 F [facility] Date Time Provider Department 08/04/21 TANIA WHITAKER AGSPINE3 During your visit today, we recorded the following information about you: Tania Whitaker MD 08/04/2021 7:13 AM Signed 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 She was given morphine at the first ED visit and feels that they did not really give her morphine since she did not feel any different. She says that she had a recent MRI at [facility]. The only MRI that I see In the chart is a hip MRI from 2019. Please call [facility] and see if they can send us her most recent MRI and find out what body part it was on. . She has an appointment with Bonifacio on 08/13. There is not much that can be done until then. I can send in a prednisone dose pack. Does she want to try that? Reji Leone MA 08/05/2021 9:58 AM Signed See Scary Mommyt message from Bonifacio 08/04/21. 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 - albuterol HFA (PROVENTIL HFA, VENTOLIN HFA) 90 mcg/actuation inhaler Inhale 2 Puffs as instructed every 4 hours as needed for wheezing/shortness of breath. Patient requests VENTOLIN please. With spacer please. - acetaminophen (TYLENOL EXTRA STRENGTH) 500 mg tablet Take 2 tablets by mouth every 6 hours as needed for pain. - gabapentin (NEURONTIN) 300 mg capsule Take 4 capsules by mouth daily at bedtime for 120 days. - FLUoxetine (PROZAC) 20 mg capsule Take 4 capsules by mouth daily at bedtime. - atorvastatin (LIPITOR) 20 mg tablet Take 1 tablet by mouth once daily. Problem List As Of Date 08/04/2021 Noted Resolved Depression, major [F32.9] 04/23/2010 Emphysema/COPD (HCC) [J43.9] 04/23/2010 Cigarette smoker [F17.210] 05/05/2010 Post-traumatic stress disorder [F43.10] 06/03/2010 Complicated grief [F43.21] 06/23/2011 02/02/2021 Anxiety disorder [F41.9] 06/23/2011 Hip pain [M25.559] 02/07/2013 Hot flashes [R23.2] 02/28/2013 02/27/2021 RSD (reflex sympathetic dystrophy) [G90.50] 03/28/2013 Fibromyalgia [M79.7] 03/28/2013 Inflammatory polyarthropathy (HCC) [M06.4] 03/28/2013 NO SHOW [[id number]] 09/04/2014 12/10/2015 Nightmares associated with chronic post-traumat* 8 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] 02/27/2021 Impaired glucose metabolism [R73.09] 02/27/2021 Left shoulder pain [M25.512] 05/08/2021 Cervicalgia [M54.2] 05/08/2021 Encounter Status:Closed by TANIA WHITAKER on 08/04/21 [facility] 08-03-2021 KALEIGHN Telephone (AGSPINE1) BARBARA HERNANDEZ ([id number]) 1965 F [facility] Date Time Provider Department 08/03/21 BONIFACIO CHRISTIE AGSPINE1 During your visit today, we recorded the following information about you: Tiffanie Grace 08/03/2021 9:44 AM Signed Patient has left me two voicemail's now today stating that she has hurt her hip and is in the ER they want to give her a shot but she needed to call her doctor first because of the contract she has with use. She has a new number now because she said she never received phone calls last week. [phone] is her new number. Her next appointment is 08/13/21 and there is no openings in the [place] office until that date. She is requesting that someone calls her today. Tiffanie Grace 08/03/2021 11:18 AM Signed This patient keeps calling and she has sent my chart messages as well. Can someone please give her a call as soon as possible. Tiffanie Palma APRN.[place] 08/03/2021 3:43 PM Signed See if someone can see her sooner- RSIHI Berry 08/04/2021 8:39 AM Signed I have attempted to contact this patient by phone, Left brief message on cell voicemail stating to give me a call back at [phone]. To offer her an appointment in the [place] location for 08/05/[address] Martin. Tiffanie Grace 08/04/2021 8:53 AM Signed Patient called back stating that all she can do is go to the [place] office and can not drive out of [place]. 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 That this was dicussed in office that she would only be able to go to the [place] office. Please advise Tiffanie Palma APRN.HOME CARE NURSE 08/04/2021 8:[address] Martin and Bonifacio, I am going to defer this to you- Montse Palma APRN.KALEIGH Martin MD 08/04/2021 9:20 AM Signed I will call her at noon if Bonifacio is unable to contact her first. I have not seen her before, so similar to what Dr. Whitaker recommended, I can offer her a steroid pack. Her appointment has already been moved up to 08/13, which considering we are in [place] only 4 days per month, is very quick turnaround. Paul Martin III, MD, BOBBYRao Christie APRN.HOME CARE NURSE 08/04/2021 10:37 AM Signed Attempted to contact patient, no answer and voicemail is full. Will try again later. Bonifacio Christie APRN.KALEIGH Rhodes 08/04/2021 11:00 AM Signed Called patient to advise that I had received her most recent MRI via fax and patient accused me of lying to say that I had just received it. I reminded the patient that I had reviewed the documentation with her to show her what we had already received. Patient was very argumentative and rude. According to her and her documentation from the ED she was not treated because she has a contract with [facility]. She was upset because she stated that she was told to come to [place] for an appointment. I explained that it was given as an option to being seen sooner since we are only in [place] 1 day per week. Patient then was angry because I called her on a phone number that she no longer wants us to use. She states that she advised 2 days ago that her number has changed to . I verified that this is the only number that she wants to be contacted at and assured her that I would change it and then she abruptly ended the call. Thank you, Niru Rhodes Flanging Machine Operator to Montse Palma, Authorizations and Denials [facility] [place] [address] [address] P: [phone] ext. [phone] F: [phone] [email or web address] Bonifacio Christie APRN.HOME CARE NURSE 08/04/2021 12:06 PM Signed I attempted again to contact the patient at the new number she provided. No answer, LMOM. Thank you, Bonifacio Christie APRN.HOME CARE NURSE Paul Martin MD 08/04/2021 12:57 PM Signed Chart updates noted. Bonifacio attempted to contact Ms. Hernandez during the noon hour and left a voicemail. I will try after clinic today if she has not successfully reached her by then. Paul Martin III, MD, BOBBY Paul Martin MD 08/04/2021 4:48 PM Signed I attempted to call Ms. Hernandez at the ph# listed below ([phone]), went to voicemail, no identifiers. I left a message that I would attempt to send her a mychart to discuss her care and also encouraged her to contact me via Minub[employer] or try our 800 number again, which I also left for her. Outside records were reviewed - MRI C-spine 07/08/2021 ([facility]): This showed cervical spondylosis at C4-5,5-6,6-7. There was no canal stenosis. There was foraminal stenosis as follows: mild (right C4-5), moderate (left C4-5, bilateral C5-6, bilateral C6-7). There was a consult from [facility] from 07/13/2021, noting she had prior lumbar laminectomy at L5-S1 (03/11/2020), has had prior pain injections by Dr. Wharton. Noted cu (more content not included)... Normal [facility] CNPNon 07-16-2021 CNPN Telephone (AGSPINE2) BARBARA HERNANDEZ ([id number]) 1965 F T Date Time Provider Department 07/16/21 MONTSE PALMA AGSPINE2 During your visit today, we recorded the following information about you: Montse Palma APRN.CNP 07/16/2021 4:47 PM Signed Records from [place] [facility] received and placed into scan Montse Palma APRN.CNP Allergies As of Date: 07/16/2021 Noted Allergy Reaction CORTISONE 08/14/2014 4 - Hives LATEX, NATURAL RUBBER 04/23/2010 2 - Rash PENICILLINS 12/21/2004 4 - Hives ENTEX (PHENYLEPHRINE-GUAIFEN ESIN) 01/04/2005 5 - Intolerance NAPROSYN (NAPROXEN) 12/21/2004 2 - Rash Date Reviewed: 07/02/2021 Reviewed by: Bonifacio Christie APRN.CNP - Fully Assessed Reason for Visit: Received Outside Medical Records [[id number]] Cmt: [place] [facility] Prescriptions as of 07/16/2021 - baclofen (LIORESAL) 10 mg tablet Take 1 tablet by mouth twice daily. - albuterol HFA (PROVENTIL HFA, VENTOLIN HFA) 90 mcg/actuation inhaler Inhale 2 Puffs as instructed every 4 hours as needed for wheezing/shortness of breath. Patient requests VENTOLIN please. With spacer please. - acetaminophen (TYLENOL EXTRA STRENGTH) 500 mg tablet Take 2 tablets by mouth every 6 hours as needed for pain. - gabapentin (NEURONTIN) 300 mg capsule Take 4 capsules by mouth daily at bedtime for 120 days. - FLUoxetine (PROZAC) 20 mg capsule Take 4 capsules by mouth daily at bedtime. - atorvastatin (LIPITOR) 20 mg tablet Take 1 tablet by mouth once daily. Problem List As Of Date 07/16/2021 Noted Resolved Depression, major [F32.9] 04/23/2010 Emphysema/COPD (HCC) [J43.9] 04/23/2010 Cigarette smoker [F17.210] 05/05/2010 Post-traumatic stress disorder [F43.10] 06/03/2010 Complicated grief [F43.21] 06/23/2011 02/02/2021 Anxiety disorder [F41.9] 06/23/2011 Hip pain [M25.559] 02/07/2013 Hot flashes [R23.2] 02/28/2013 02/27/2021 RSD (reflex sympathetic dystrophy) [G90.50] 03/28/2013 Fibromyalgia [M79.7] 03/28/2013 Inflammatory polyarthropathy (HCC) [M06.4] 03/28/2013 NO SHOW [486505] 09/04/2014 12/10/2015 Nightmares associated with chronic post-traumat* 8 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] 02/27/2021 Impaired glucose metabolism [R73.09] 02/27/2021 Left shoulder pain [M25.512] 05/08/2021 Cervicalgia [M54.2] 05/08/2021 Encounter Status:Closed by MONTSE PALMA on 07/16/21 [facility] CNPDebbie 07-03[facility]2021 [facility] BAR[facility] ([id number]) 1965 F T Date Time Provider Department 07/03/21 BONIFACIO CHRISTIE AGSPHWG During your visit today, we recorded the following information about you: Yanique Reyes 07/03/2021 7:50 AM Signed Fax sent to at [facility] for release of records Fax number [phone] Phone number [phone] Fax sent to at [facility] for release of records Fax number [phone] Phone number [phone] Allergies As of Date: 07/03/2021 Noted Allergy Reaction CORTISONE 08/14/2014 4 - Hives LATEX, NATURAL RUBBER 04/23/2010 2 - Rash PENICILLINS 12/21/2004 4 - Hives ENTEX (PHENYLEPHRINE-GUAIFEN ESIN) 01/04/2005 5 - Intolerance NAPROSYN (NAPROXEN) 12/21/2004 2 - Rash Date Reviewed: 07/02/2021 Reviewed by: Bonifacio Christie APRN.HOME CARE NURSE - Fully Assessed Reason for Visit: Release Of Medical Records [2017] Prescriptions as of 07/03/2021 - baclofen (LIORESAL) 10 mg tablet Take 1 tablet by mouth twice daily. - albuterol HFA (PROVENTIL HFA, VENTOLIN HFA) 90 mcg/actuation inhaler Inhale 2 Puffs as instructed every 4 hours as needed for wheezing/shortness of breath. Patient requests VENTOLIN please. With spacer please. - acetaminophen (TYLENOL EXTRA STRENGTH) 500 mg tablet Take 2 tablets by mouth every 6 hours as needed for pain. - gabapentin (NEURONTIN) 300 mg capsule Take 4 capsules by mouth daily at bedtime for 120 days. - FLUoxetine (PROZAC) 20 mg capsule Take 4 capsules by mouth daily at bedtime. - atorvastatin (LIPITOR) 20 mg tablet Take 1 tablet by mouth once daily. Problem List As Of Date 07/03/2021 Noted Resolved Depression, major [F32.9] 04/23/2010 Emphysema/COPD (HCC) [J43.9] 04/23/2010 Cigarette smoker [F17.210] 05/05/2010 Post-traumatic stress disorder [F43.10] 06/03/2010 Complicated grief [F43.21] 06/23/2011 02/02/2021 Anxiety disorder [F41.9] 06/23/2011 Hip pain [M25.559] 02/07/2013 Hot flashes [R23.2] 02/28/2013 02/27/2021 RSD (reflex sympathetic dystrophy) [G90.50] 03/28/2013 Fibromyalgia [M79.7] 03/28/2013 Inflammatory polyarthropathy (HCC) [M06.4] 03/28/2013 NO SHOW [083430] 09/04/2014 12/10/2015 Nightmares associated with chronic post-traumat* 8 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] 02/27/2021 Impaired glucose metabolism [R73.09] 02/27/2021 Left shoulder pain [M25.512] 05/08/2021 Cervicalgia [M54.2] 05/08/2021 Encounter Status:Closed by YANIQUE REYES on 07/03/21 [facility] CNOVon 07-02-2021 CNOV Office Visit (SPAGWO ) BARBARA HERNANDEZ ([id number]) 1965 F T Date Time Provider Department 07/02/21 10:00 AM BONIFACIO CHRISTIE SPAGWO During your visit today, we recorded the following information about you: Pulse Respiration Last Period [facility] XR LUMBAR MOTION 4V AP/LAT/ FLEX/EXTon 07-02-2021 [facility] XR Shoulder - left 3 Viewson 04-27-2021 IMPRESSION: Acromioclavicular osteoarthrosis. No acute osseous abnormality identified. Physician Specialist: [facility] Transcribe Date/Time: Apr 27 2021 1:04P Dictated by : AMITA RUIZ MD This examination was interpreted and the report reviewed and electronically signed by: AMITA RUIZ MD on Apr 27 2021 1:05PM [facility] DIVISION OF RADIOLOGY * * *Final Report* * * DATE OF EXAM: Apr 27 2021 1:00PM WOX 5252 - XR SHLDR >/=3V AP/JASON AP/OTHR LT / PROCEDURE REASON: multiple diagnoses * * * * Physician Interpretation * * * * Left shoulder radiographs HISTORY: 55 years old Clinical information: Chronic left shoulder pain Chronic left shoulder pain pain for a couple of weeks all posterior side of left shoulder and left posterior arm no inj TECHNIQUE: Images: XR SHLDR >/=3V AP/JASON AP/OTHR LT Comparison: None. RESULT: Findings: Glenohumeral joint space is maintained. Narrowing of the acromioclavicular joint with associated subjacent osteophytes. No fracture or dislocation. DIVISION OF RADIOLOGY Provider, Liat Llamas [facility] - 04/27/2021 * * *Final Report* * * DATE OF EXAM: Apr 27 2021 1:00PM WOX 5252 - XR SHLDR >/=3V AP/JASON AP/OTHR LT / PROCEDURE REASON: multiple diagnoses * * * * Physician Interpretation * * * * Left shoulder radiographs HISTORY: 55 years old Clinical information: Chronic left shoulder pain Chronic left shoulder pain pain for a couple of weeks all posterior side of left shoulder and left posterior arm no inj TECHNIQUE: Images: XR SHLDR >/=3V AP/JASON AP/OTHR LT Comparison: None. RESULT: Findings: Glenohumeral joint space is maintained. Narrowing of the acromioclavicular joint with associated subjacent osteophytes. No fracture or dislocation. IMPRESSION IMPRESSION: Acromioclavicular osteoarthrosis. No acute osseous abnormality identified. Physician Specialist[facility] Transcribe Date/Time: Apr 27 2021 1:04P Dictated by : AMITA RUIZ MD This examination was interpreted and the report reviewed and electronically signed by: AMITA RUIZ MD on Apr 27 2021 1:05PM EST [facility] Radiology Study observation (narrative) [facility] XR Shoulder - left 3 ViewsOr dered By: [facility]cf Provider on 04-27-2021 [facility] Clinical Summary: HMSPatient IDon 10-09-2019 GOP [facility] Work Phone: Office Visit: New - 1st visi t with practice, Rm: 510-09-2019 NEGATED: Highlighted rowMRI (magnetic resonance imaging) history on 06/29/2019 at [facility] Work Phone: Clinical Lists Update: Prelo ad Extendedon 10-08-2019 Tobacco smoking status NHIS current everyday smoker [facility] Work Phone: CURon 08-13-2018 CUR . MICRO - Microbiology PROCEDURE: Urine Culture [*1] SOURCE: Urine BODY SITE: COLLECTED DATE/TIME: 08/11/2018 12:52 EDT RECEIVED DATE/TIME: 08/11/2018 20:04 EDT START DATE/TIME: 08/11/2018 20:04 EDT FREE TEXT SOURCE: FINAL REPORTS Final Report [] Verified Date/Time/Personnel: 08/13/2018 07:51 EDT No growth at 48 hours. PRELIMINARY REPORTS Preliminary Report [] Verified Date/Time/Personnel: 08/12/2018 08:29 EDT No growth to date Performing Locations *1: This test was performed at: [facility], [address] [place] [address], [address] [place] [address] ([place]) Comment on above: Performed By: #### C UR ####[place] [address] .Auto Diffon 08-10-2018 Ammonia (P) [Mass/Vol] 1.60 10 3/mcL High 0.15-1.00 [facility] ([place]) Comment on above: Performed By: #### A JENY WILCOX, CBC ####[address] [place], [place] [address] Basophils (Bld) [#/Vol] 0.10 10 3/mcL Normal 0.00-0.19 [facility] ([place]) Comment on above: Performed By: #### A BRENDENMIRIAMIFF, CBC ####[address] [place], [place] [address] Basophils/100 WBC (Bld) 0.7 % Normal 0.0-2.5 [facility] ([place]) Comment on above: Performed By: #### A BRENDENMIRIAMIFF, CBC ####[address] [place], [place] [address] Eosinophils (Bld) [#/Vol] 0.40 10 3/mcL Normal 0.00-0.40 [facility] ([place] Comment on above: Performed By: #### A BRENDEN ADIFF, CBC ####[address] [place], [place] [address] Eosinophils/100 WBC (Bld) 3.3 % Normal 0.0-7.0 [facility] ([place] Comment on above: Performed By: #### A JENY WILCOX, CBC ####[address] [place], [place] [address] Lymphocytes (Bld) [#/Vol] 2.20 10 3/mcL Normal 0.77-3.85 [facility] ([place]) Comment on above: Performed By: #### A JENY WILCOX, CBC ####[address] [place], [place] [address] Lymphocytes/100 WBC (Bld) 16.4 % Normal 10.0-50.0 [facility] ([place] Comment on above: Performed By: #### A JENY WILCOX, CBC ####[address] [place], [place] [address] Monocytes/100 WBC (Bld) 11.9 % Normal 1.7-13.0 [facility] ([place] Comment on above: Performed By: #### A JENY WILCOX, CBC ####[address] [place], [place] [address] Neutrophils/100 WBC (Bld) 67.7 % Normal 37.0-80.0 [facility] ([place] Comment on above: Performed By: #### A JENY WILCOX, CBC ####[address] [place], [place] [address] .NEUABSon 08-10-2018 Neutrophils (Bld) [#/Vol] 9.00 10 3/mcL High 2.85-6.16 [facility] ([place] Comment on above: Performed By: #### A JENY WILCOX, CBC ####[address] [place], [place] [address] .Urinalysis Microscopic (AO) on 08-10-2018 RBC (U) [#/Vol] LOADED None Seen [facility] ([place] Comment on above: Performed By: #### U A UAMICAO ####[facility] [place] [address] UA Squam Epithelial 5-10 None Seen [facility] ([place]) Comment on above: Performed By: #### U A UAMICAO ####[address] [address] UA WBC LOADED None Seen [facility] ([place] Comment on above: Performed By: #### U A UAMICAO ####[address] [address] CBCon 08-10-2018 Erythrocyte distribution width (RBC) [Ratio] 13.8 % Normal 11.5-14.5 [facility] ([place] Comment on above: Performed By: #### A JENY WILCOX, CBC ####[address] [place], [place] [address] Hematocrit (Bld) [Volume fraction] 38.2 % Normal 37.0-47.0 [facility] ([place] Comment on above: Performed By: #### A JENY WILCOX, CBC ####[address] [place], [place] [address] Hemoglobin (Bld) [Mass/Vol] 12.6 G/dL Normal 12.0-16.0 [facility] ([place] Comment on above: Performed By: #### A JENY WILCOX, CBC ####[address] [place], [place] [address] MCH (RBC) [Entitic mass] 30.7 pg Normal 27.0-31.2 [facility] ([place] Comment on above: Performed By: #### A JENY WILCOX, CBC ####[address] [place], [place] [address] MCHC (RBC) [Mass/Vol] 33.0 G/dL Normal 33.0-37.0 [facility] ([place]) Comment on above: Performed By: #### A JENY WILCOX, CBC ####[address] [place], [place] [address] MCV (RBC) [Entitic vol] 92.9 fL Normal 80.0-94.0 [facility] ([place] Comment on above: Performed By: #### A JENY WILCOX, CBC ####[address] [place], [place] [address] Platelet mean volume (Bld) [Entitic vol] 7.5 fL Normal 7.4-10.4 [facility] ([place] Comment on above: Performed By: #### A JENY WILCOX, CBC ####[address] [place], [place] [address] Platelets (Bld) [#/Vol] 466 10 3/mcL High 130-400 [facility] ([place] Comment on above: Performed By: #### A JENY WILCOX, CBC ####[address] [place], [place] [address] RBC (Bld) [#/Vol] 4.11 10 6/mcL Low 4.20-5.40 [facility] ([place]) Comment on above: Performed By: #### A JENY WILCOX, CBC ####[address] [place], [place] [address] WBC (Bld) [#/Vol] 13.20 10 3/mcL High 4.60-10.80 [facility] ([place] Comment on above: Performed By: #### A JENY WILCOX, CBC ####[address] [place], [place] [address] UAon 08-10-2018 Color (U) Yellow Normal [facility] ([place] Comment on above: Performed By: #### U A, UAMICAO ####[place] [address] Glucose (U) [Mass/Vol] Negative Normal Negative [facility] ([place] Comment on above: Performed By: #### U A, UAMICAO ####[facility] [place] [address] Ketones Ql (U) Negative Normal Negative [facility] ([place] Comment on above: Performed By: #### U A, UAMICAO ####[facility] [place] [address] UA Appear Cloudy Clear [facility] ([place] Comment on above: Performed By: #### U A, UAMICAO ####[place] [address] UA Blood Large Negative [facility] ([place] Comment on above: Performed By: #### U A, UAMICAO ####[place] [address] UA Leuk Est Large Negative [facility] ([place] Comment on above: Performed By: #### U A, UAMICAO ####[place] [address] UA Nitrite Negative Normal Negative [facility] ([place] Comment on above: Performed By: #### U A, UAMICAO ####[place] [address] UA pH 6.0 Normal 5.0 - 8.0 [facility] ([place] Comment on above: Performed By: #### U A, UAMICAO ####[place] [address] UA Protein Negative Normal Negative [facility] ([place] Comment on above: Performed By: #### U A, UAMICAO ####[place] [address] UA Spec Grav 1.020 Normal 1.015-1.025 [facility] ([place] Comment on above: Performed By: #### U A, UAMICAO ####[place] [address] UA Specimen Type Not Given Normal [facility] ([place] Comment on above: Performed By: #### U A, UAMICAO ####[place] [address] UA Urobilinogen 0.2 E.U./dL Normal 0.2-1.0 [facility] ([place] Comment on above: Performed By: #### U A, UAMICAO ####[place] [address] Urobilinogen Qn (U) Negative Normal Negative [facility] ([place]) Comment on above: Performed By: #### U A, UAMICAO ####[place] [address] .Auto Diffon 07-28-2018 Ammonia (P) [Mass/Vol] 1.60 10 3/mcL High 0.15-1.00 [facility] ([place]) Comment on above: Performed By: #### A DIFF, CBC, ANEU ####[address] [place], [place] [address] Basophils (Bld) [#/Vol] 0.10 10 3/mcL Normal 0.00-0.19 [facility] ([place]) Comment on above: Performed By: #### A DIFF, CBC, ANEU ####[address] [place], [place] [address] Basophils/100 WBC (Bld) 0.5 % Normal 0.0-2.5 [facility] ([place]) Comment on above: Performed By: #### A DIFF, CBC, ANEU ####[address] [place], [place] [address] Eosinophils (Bld) [#/Vol] 0.20 10 3/mcL Normal 0.00-0.40 [facility] ([place]) Comment on above: Performed By: #### A DIFF, CBC, ANEU ####[address] [place], [place] [address] Eosinophils/100 WBC (Bld) 1.6 % Normal 0.0-7.0 [facility] ([place] Comment on above: Performed By: #### A DIFF, CBC, ANEU ####[address] [place], [place] [address] Lymphocytes (Bld) [#/Vol] 2.40 10 3/mcL Normal 0.77-3.85 [facility] ([place]) Comment on above: Performed By: #### A DIFF, CBC, ANEU ####[address] [place], [place] [address] Lymphocytes/100 WBC (Bld) 17.0 % Normal 10.0-50.0 [facility] ([place] Comment on above: Performed By: #### A DIFF, CBC, ANEU ####[address] [place], [place] [address] Monocytes/100 WBC (Bld) 11.0 % Normal 1.7-13.0 [facility] ([place] Comment on above: Performed By: #### A DIFF, CBC, ANEU ####[address] [place], [place] [address] Neutrophils/100 WBC (Bld) 69.9 % Normal 37.0-80.0 [facility] ([place] Comment on above: Performed By: #### A DIFF, CBC, ANEU ####[address] [place], [place] [address] .NEUABSon 07-28-2018 Neutrophils (Bld) [#/Vol] 9.90 10 3/mcL High 2.85-6.16 [facility] ([place] Comment on above: Performed By: #### A DIFF, CBC, ANEU ####[address] [place], [place] [address] CBCon 07-28-2018 Erythrocyte distribution width (RBC) [Ratio] 13.9 % Normal 11.5-14.5 [facility] ([place] Comment on above: Performed By: #### A DIFF, CBC, ANEU ####[address] [place], [place] [address] Hematocrit (Bld) [Volume fraction] 41.8 % Normal 37.0-47.0 [facility] ([place] Comment on above: Performed By: #### A DIFF, CBC, ANEU ####[address] [place], [place] [address] Hemoglobin (Bld) [Mass/Vol] 13.8 G/dL Normal 12.0-16.0 [facility] ([place] Comment on above: Performed By: #### A DIFF, CBC, ANEU ####[address] [place], [place] [address] MCH (RBC) [Entitic mass] 30.4 pg Normal 27.0-31.2 [facility] ([place] Comment on above: Performed By: #### A DIFF, CBC, ANEU ####[address] [place], [place] [address] MCHC (RBC) [Mass/Vol] 33.1 G/dL Normal 33.0-37.0 [facility] ([place] Comment on above: Performed By: #### A DIFF, CBC, ANEU ####[address] [place], [place] [address] MCV (RBC) [Entitic vol] 91.8 fL Normal 80.0-94.0 [facility] ([place] Comment on above: Performed By: #### A DIFF, CBC, ANEU ####[address] [place], [place] [address] Platelet mean volume (Bld) [Entitic vol] 7.8 fL Normal 7.4-10.4 [facility] ([place] Comment on above: Performed By: #### A DIFF, CBC, ANEU ####[address] [place], [place] [address] Platelets (Bld) [#/Vol] 456 10 3/mcL High 130-400 [facility] ([place] Comment on above: Performed By: #### A DIFF, CBC, ANEU ####[address] [place], [place] [address] RBC (Bld) [#/Vol] 4.55 10 6/mcL Normal 4.20-5.40 [facility] ([place] Comment on above: Performed By: #### A DIFF, CBC, ANEU ####[address] [place], [place] [address] WBC (Bld) [#/Vol] 14.20 10 3/mcL High 4.60-10.80 [facility] ([place] Comment on above: Performed By: #### A DIFF, CBC, ANEU ####[address] [place], [place] [address] Final Surgical Pathology Rep [facility] 07-26-2018 Final Surgical Pathology Report . Pathology Reports Accession: Collected Date/Time: Received Date/Time: Pathologist: [id number] 07/24/2018 14:19 EDT 07/25/2018 08:08 EDT DO NAVEEN FLEMING Final Surgical Pathology Report DIAGNOSIS: UTERUS (68 GRAMS) WITH AN ATROPHIC APPEARING ENDOMETRIUM. ADENOMYOSIS. CHRONIC CYSTIC ENDOCERVICITIS. BILATERAL OVARIES WITH CYSTIC FOLLICLES AND BILATERAL FALLOPIAN TUBES. COMMENT: AO - D# [id number] CLINICAL INFORMATION: Procedure: LAPAROSCOPIC ASSISTED VAGINAL HYSTERECTOMY, BILATERAL SALPINGO-OOPHORECTOMY Preoperative diagnosis: POST MENOPAUSAL BLEEDING Postoperative diagnosis: SAME SPECIMEN: A UTERUS, BILATERAL FALLOPIAN TUBES, BILATERAL OVARIES GROSS DESCRIPTION: Received in formalin labeled uterus, bilateral fallopian tubes and ovaries is a 68 g, 6.2 x 4.5 x 3.5 cm uterus with attached cervix and attached bilateral adnexa. The serosa is nguyễn- pink and smooth. The cervix is 3 cm in greatest diameter with a0.4 cm patent opening. The ectocervix is nguyễn-red and ranges from smooth to torn. The endocervix is nguyễn glistening and mildly trabeculated. The transformation zone is not grossly identified. The endometrium is nguyễn-red, smooth, glistening and averages 0.1 cm in thickness. The underlying myometrium is nguyễn- pink, soft and measures up to 1.2 cm in thickness. The posterior wall shows a 0.8 cm subserosal nodule with grossly unremarkable cut surfaces. The ovaries are 2.3 and 2.8 cm in greatest dimension, right and left respectively. Each displays a nguyễn-pink smooth and cerebriform outer surface. Sectioning shows few cystic structures measuring up to 0.9 cm, which are blood filled. The fallopian tubes are 6 and 5 cm in length, right and left respectively. Each displays fimbria and a Filshie clip.Sectioning shows pinpoint lumina. RS -5 1 -2 cervix and endomyometrium, anterior and posterior jain respectively 3 posterior wall nodule 4 -5 bilateral adnexa, right and left respectively Dictated by Yenifer ROJAS ([facility]) MICROSCOPIC DESCRIPTION: Slides reviewed. Electronically Signed by Pathology Report verified by [facility] Electronically signed by NAVEEN FLEMING DO Sign out Date: 07/26/2018 14:41 Performing Lab: [facility], [address] [place] [address] ([place]) Comment on above: Performed By: #### S PFR ####[place] [address] .Auto Diffon 07-25-2018 Ammonia (P) [Mass/Vol] 1.90 10 3/mcL High 0.15-1.00 [facility] ([place]) Comment on above: Performed By: #### C BC, ANEU, ADIFF #### [address] [address] #### GFR, LIPID, CMP #### [address] [address] Basophils (Bld) [#/Vol] 0.00 10 3/mcL Normal 0.00-0.19 [facility] ([place]) Comment on above: Performed By: #### C BC, ANEU, ADIFF #### [place] [address] #### GFR, LIPID, CMP #### [address] [address] Basophils/100 WBC (Bld) 0.2 % Normal 0.0-2.5 [facility] ([place]) Comment on above: Performed By: #### C BC, ANEU, ADIFF #### [address] [address] #### GFR, LIPID, CMP #### [address] [address] Eosinophils (Bld) [#/Vol] 0.10 10 3/mcL Normal 0.00-0.40 [facility] ([place]) Comment on above: Performed By: #### C BC, ANEU, ADIFF #### [address] [address] #### GFR, LIPID, CMP #### [address] [address] Eosinophils/100 WBC (Bld) 0.4 % Normal 0.0-7.0 [facility] ([place]) Comment on above: Performed By: #### C BC, ANEU, ADIFF #### [address] [address] #### GFR, LIPID, CMP #### [address] [address] Lymphocytes (Bld) [#/Vol] 3.20 10 3/mcL Normal 0.77-3.85 [facility] ([place]) Comment on above: Performed By: #### C BC, ANEU, ADIFF #### [address] [address] #### GFR, LIPID, CMP #### [address] [address] Lymphocytes/100 WBC (Bld) 18.0 % Normal 10.0-50.0 [facility] ([place]) Comment on above: Performed By: #### C BC, ANEU, ADIFF #### [address] [address] #### GFR, LIPID, CMP #### [address] [address] Monocytes/100 WBC (Bld) 10.7 % Normal 1.7-13.0 [facility] ([place]) Comment on above: Performed By: #### C BC, ANEU, ADIFF #### [address] [address] #### GFR, LIPID, CMP #### [address] [address] Neutrophils/100 WBC (Bld) 70.7 % Normal 37.0-80.0 [facility] ([place]) Comment on above: Performed By: #### C BC, ANEU, ADIFF #### [address] [address] #### GFR, LIPID, CMP #### [address] [address] .GFRon 07-25-2018 GFR Non- 103 ml/min/1.73sqm Normal [facility] ([place]) Comment on above: Result Comment: GFR Population mean for , Non- Americans Ages 20-29 = 116 mL/min/1.73 sq.m. Ages 30-39 = 107 mL/min/1.73 sq.m. Ages 40-49 = 99 mL/min/1.73 sq.m. Ages 50-59 = 93 mL/min/1.73 sq.m. Ages 60-69 = 85 mL/min/1.73 sq.m. Ages 70+ = 75 mL/min/1.73 sq.m. Chronic Kidney Disease: Less than 60 mL/min/1.73 square meters End Stage Renal Disease: Less than 15 mL/min/1.73 square meters Performed By: #### C BC, ANEU, ADIFF #### [address] [address] #### GFR, LIPID, CMP #### [address] [address] GFR 125 ml/min/1.73sqm Normal [facility] ([place]) Comment on above: Result Comment: GFR Population mean for , Non- Americans Ages 20-29 = 116 mL/min/1.73 sq.m. Ages 30-39 = 107 mL/min/1.73 sq.m. Ages 40-49 = 99 mL/min/1.73 sq.m. Ages 50-59 = 93 mL/min/1.73 sq.m. Ages 60-69 = 85 mL/min/1.73 sq.m. Ages 70+ = 75 mL/min/1.73 sq.m. Chronic Kidney Disease: Less than 60 mL/min/1.73 square meters End Stage Renal Disease: Less than 15 mL/min/1.73 square meters Performed By: #### C BC, ANEU, ADIFF #### [place] [address] #### GFR, LIPID, CMP #### [place] [address] .Manual Diffon 07-25-2018 Atypical Lymphs 2.0 % Normal 0.0-5.0 [facility] ([place] Comment on above: Performed By: #### C BC, ANEU, ADIFF #### [address] [address] #### GFR, LIPID, CMP #### [place] [address] Bands 4.0 % Normal 0.0-5.0 [facility] ([place] Comment on above: Performed By: #### C BC, ANEU, ADIFF #### [place] [address] #### GFR, LIPID, CMP #### [place] [address] Basophil %, Manual 0.0 % Normal 0.0-2.5 Counts include 234 beds at the [facility] ([place]) Comment on above: Performed By: #### C BC, ANEU, ADIFF #### [place] [address] #### GFR, LIPID, CMP #### [address] [address] Basophil, Abs Manual 0.00 10 3/mcL Normal 0.00-0.19 [facility] ([place]) Comment on above: Performed By: #### C BC, ANEU, ADIFF #### [place] [address] #### GFR, LIPID, CMP #### [place] [address] Eosinophil %, Manual 0.0 % Normal 0.0-7.0 [facility] ([place]) Comment on above: Performed By: #### C BC, ANEU, ADIFF #### [place] [address] #### GFR, LIPID, CMP #### [address] [address] Eosinophil, Abs Manual 0.00 10 3/mcL Normal 0.00-0.40 [facility] ([place] Comment on above: Performed By: #### C BC, ANEU, ADIFF #### [place] [address] #### GFR, LIPID, CMP #### [place] [address] Lymphocyte %, Manual 7.0 % Low 10.0-50.0 [facility] ([place] Comment on above: Performed By: #### C BC, ANEU, ADIFF #### [place] [address] #### GFR, LIPID, CMP #### [address] [address] Lymphocyte, Abs Manual 1.60 10 3/mcL Normal 0.77-3.85 [facility] ([place] Comment on above: Performed By: #### C BC, ANEU, ADIFF #### [place] [address] #### GFR, LIPID, CMP #### [address] [address] Monocyte %, Manual 13.0 % Normal 1.7-13.0 Counts include 234 beds at the [facility] ([place] Comment on above: Performed By: #### C BC, ANEU, ADIFF #### [place] [address] #### GFR, LIPID, CMP #### [address] [address] Monocyte, Abs Manual 2.30 10 3/mcL High 0.15-1.00 [facility] ([place]) Comment on above: Performed By: #### C BC, ANEU, ADIFF #### [place] [address] #### GFR, LIPID, CMP #### [place] [address] Neutrophil %, Manual 74.0 % Normal 37.0-80.0 [facility] ([place] Comment on above: Performed By: #### C BC, ANEU, ADIFF #### [place] [address] #### GFR, LIPID, CMP #### [address] [address] Neutrophil, Abs Manual 13.80 10 3/mcL High 2.85-6.16 [facility] ([place] Comment on above: Performed By: #### C BC, ANEU, ADIFF #### [place] [address] #### GFR, LIPID, CMP #### [place] [address] .Morphon 07-25-2018 Ovalocytes Few Normal [facility] ([place] Comment on above: Performed By: #### C BC, ANEU, ADIFF #### [place] [address] #### GFR, LIPID, CMP #### [address] [address] Platelets (Bld) [#/Vol] Normal Normal [facility] ([place] Comment on above: Performed By: #### C BC, ANEU, ADIFF #### [address] [address] #### GFR, LIPID, CMP #### [place] [address] Toxic Gran Moderate Normal [facility] ([place] Comment on above: Performed By: #### C BC, ANEU, ADIFF #### [place] [address] #### GFR, LIPID, CMP #### [place] [address] .NEUABSon 07-25-2018 Neutrophils (Bld) [#/Vol] 12.60 10 3/mcL High 2.85-6.16 [facility] ([place] Comment on above: Performed By: #### C BC, ANEU, ADIFF #### [place] [address] #### GFR, LIPID, CMP #### [place] [address] BMPon 07-25-2018 Calcium [Mass/Vol] 8.6 mg/dL Normal 8.4-10.2 Counts include 234 beds at the [facility] ([place] Comment on above: Performed By: #### C BC, ANEU, ADIFF #### [place] [address] #### GFR, LIPID, CMP #### [place] [address] Chloride [Moles/Vol] 102 mmol/L Normal 98-107 [facility] ([place] Comment on above: Performed By: #### C BC, ANEU, ADIFF #### [place] [address] #### GFR, LIPID, CMP #### [place] [address] CO2 [Moles/Vol] 27 mmol/L Normal 22-29 [facility] ([place] Comment on above: Performed By: #### C BC, ANEU, ADIFF #### [address] [address] #### GFR, LIPID, CMP #### [address] [address] Creatinine [Mass/Vol] 0.61 mg/dL Normal 0.55-1.02 [facility] ([place]) Comment on above: Performed By: #### C BC, ANEU, ADIFF #### [address] [address] #### GFR, LIPID, CMP #### [address] [address] Electrolyte Balance 8.0 mEq/L Normal [facility] ([place]) Comment on above: Performed By: #### C BC, ANEU, ADIFF #### [address] [address] #### GFR, LIPID, CMP #### [address] [address] Glucose [Mass/Vol] 104 mg/dL Normal 70-105 Counts include 234 beds at the [facility] ([place] Comment on above: Performed By: #### C BC, ANEU, ADIFF #### [address] [address] #### GFR, LIPID, CMP #### [address] [address] Potassium [Moles/Vol] 4.4 mmol/L Normal 3.5-5.1 [facility] ([place]) Comment on above: Performed By: #### C BC, ANEU, ADIFF #### [address] [address] #### GFR, LIPID, CMP #### [address] [address] Sodium [Moles/Vol] 137 mmol/L Normal 136-145 Counts include 234 beds at the [facility] ([place] Comment on above: Performed By: #### C BC, ANEU, ADIFF #### [address] [address] #### GFR, LIPID, CMP #### [address] [address] Urea nitrogen [Mass/Vol] 10 mg/dL Normal 7-18 [facility] ([place] Comment on above: Performed By: #### C BC, ANEU, ADIFF #### [address] [address] #### GFR, LIPID, CMP #### [address] [address] Urea nitrogen/Creatinine [Mass ratio] 16 ratio Normal 7-27 [facility] ([place] Comment on above: Performed By: #### C BC, ANEU, ADIFF #### [place] [address] #### GFR, LIPID, CMP #### [address] [address] CBCon 07-25-2018 Erythrocyte distribution width (RBC) [Ratio] 13.6 % Normal 11.5-14.5 [facility] ([place] Comment on above: Performed By: #### C BC, ANEU, ADIFF #### [place] [address] #### GFR, LIPID, CMP #### [address] [address] Hematocrit (Bld) [Volume fraction] 32.9 % Low 37.0-47.0 [facility] ([place] Comment on above: Performed By: #### C BC, ANEU, ADIFF #### [place] [address] #### GFR, LIPID, CMP #### [address] [address] Hemoglobin (Bld) [Mass/Vol] 10.8 G/dL Low 12.0-16.0 [facility] ([place] Comment on above: Performed By: #### C BC, ANEU, ADIFF #### [place] [address] #### GFR, LIPID, CMP #### [address] [address] MCH (RBC) [Entitic mass] 30.3 pg Normal 27.0-31.2 [facility] ([place]) Comment on above: Performed By: #### C BC, ANEU, ADIFF #### [address] [address] #### GFR, LIPID, CMP #### [place] [address] MCHC (RBC) [Mass/Vol] 32.9 G/dL Low 33.0-37.0 [facility] ([place]) Comment on above: Performed By: #### C BC, ANEU, ADIFF #### [place] [address] #### GFR, LIPID, CMP #### [place] [address] MCV (RBC) [Entitic vol] 92.3 fL Normal 80.0-94.0 [facility] ([place]) Comment on above: Performed By: #### C BC, ANEU, ADIFF #### [place] [address] #### GFR, LIPID, CMP #### [place] [address] Platelet mean volume (Bld) [Entitic vol] 7.4 fL Normal 7.4-10.4 [facility] ([place] Comment on above: Performed By: #### C BC, ANEU, ADIFF #### [place] [address] #### GFR, LIPID, CMP #### [place] [address] Platelets (Bld) [#/Vol] 325 10 3/mcL Normal 130-400 [facility] ([place]) Comment on above: Performed By: #### C BC, ANEU, ADIFF #### [address] [address] #### GFR, LIPID, CMP #### [place] [address] RBC (Bld) [#/Vol] 3.57 10 6/mcL Low 4.20-5.40 [facility] ([place] Comment on above: Performed By: #### C BC, ANEU, ADIFF #### [address] [address] #### GFR, LIPID, CMP #### [address] [address] WBC (Bld) [#/Vol] 17.80 10 3/mcL High 4.60-10.80 [facility] ([place]) Comment on above: Performed By: #### C BC, ANEU, ADIFF #### [place] [address] #### GFR, LIPID, CMP #### [place] [address] Erythrocyte distribution width (RBC) [Ratio] 13.6 % Normal 11.5-14.5 [facility] ([place] Comment on above: Performed By: #### C BC, ANEU, ADIFF #### [place] [address] #### GFR, LIPID, CMP #### [place] [address] Hematocrit (Bld) [Volume fraction] 34.1 % Low 37.0-47.0 [facility] ([place] Comment on above: Performed By: #### C BC, ANEU, ADIFF #### [place] [address] #### GFR, LIPID, CMP #### [place] [address] Hemoglobin (Bld) [Mass/Vol] 11.4 G/dL Low 12.0-16.0 [facility] ([place] Comment on above: Performed By: #### C BC, ANEU, ADIFF #### [place] [address] #### GFR, LIPID, CMP #### [place] [id number] MCH (RBC) [Entitic mass] 30.5 pg Normal 27.0-31.2 [facility] ([place] Comment on above: Performed By: #### C BC, ANEU, ADIFF #### [address] [address] #### GFR, LIPID, CMP #### [address] [address] MCHC (RBC) [Mass/Vol] 33.4 G/dL Normal 33.0-37.0 [facility] ([place]) Comment on above: Performed By: #### C BC, ANEU, ADIFF #### [address] [address] #### GFR, LIPID, CMP #### [place] [address] MCV (RBC) [Entitic vol] 91.5 fL Normal 80.0-94.0 [facility] ([place] Comment on above: Performed By: #### C BC, ANEU, ADIFF #### [place] [address] #### GFR, LIPID, CMP #### [address] [address] Platelet mean volume (Bld) [Entitic vol] 7.6 fL Normal 7.4-10.4 [facility] ([place] Comment on above: Performed By: #### C BC, ANEU, ADIFF #### [place] [address] #### GFR, LIPID, CMP #### [address] [address] Platelets (Bld) [#/Vol] 330 10 3/mcL Normal 130-400 [facility] ([place] Comment on above: Performed By: #### C BC, ANEU, ADIFF #### [place] [address] #### GFR, LIPID, CMP #### [address] [address] RBC (Bld) [#/Vol] 3.73 10 6/mcL Low 4.20-5.40 [facility] ([place] Comment on above: Performed By: #### C BC, ANEU, ADIFF #### [place] [address] #### GFR, LIPID, CMP #### [address] [address] WBC (Bld) [#/Vol] 17.70 10 3/mcL High 4.60-10.80 [facility] ([place] Comment on above: Performed By: #### C BC, ANEU, ADIFF #### [place] [address] #### GFR, LIPID, CMP #### [address] [address] .Auto Diffon 07-24-2018 Ammonia (P) [Mass/Vol] 1.00 10 3/mcL Normal 0.15-1.00 [facility] ([place] Comment on above: Performed By: #### C BC, ANEU, ADIFF #### [place] [address] #### GFR, LIPID, CMP #### [address] [address] Basophils (Bld) [#/Vol] 0.10 10 3/mcL Normal 0.00-0.19 [facility] ([place] Comment on above: Performed By: #### C BC, ANEU, ADIFF #### [place] [address] #### GFR, LIPID, CMP #### [address] [address] Basophils/100 WBC (Bld) 0.6 % Normal 0.0-2.5 [facility] ([place] Comment on above: Performed By: #### C BC, ANEU, ADIFF #### [place] [address] #### GFR, LIPID, CMP #### [address] [address] Eosinophils (Bld) [#/Vol] 0.20 10 3/mcL Normal 0.00-0.40 [facility] ([place] Comment on above: Performed By: #### C BC, ANEU, ADIFF #### [address] [address] #### GFR, LIPID, CMP #### [address] [address] Eosinophils/100 WBC (Bld) 1.5 % Normal 0.0-7.0 [facility] ([place] Comment on above: Performed By: #### C BC, ANEU, ADIFF #### [address] [address] #### GFR, LIPID, CMP #### [address] [address] Lymphocytes (Bld) [#/Vol] 2.70 10 3/mcL Normal 0.77-3.85 [facility] ([place] Comment on above: Performed By: #### C BC, ANEU, ADIFF #### [place] [address] #### GFR, LIPID, CMP #### [address] [address] Lymphocytes/100 WBC (Bld) 26.2 % Normal 10.0-50.0 [facility] ([place] Comment on above: Performed By: #### C BC, ANEU, ADIFF #### [place] [id number] #### GFR, LIPID, CMP #### [address] [address] Monocytes/100 WBC (Bld) 9.7 % Normal 1.7-13.0 [facility] ([place] Comment on above: Performed By: #### C BC, ANEU, ADIFF #### [place] [address] #### GFR, LIPID, CMP #### [address] [address] Neutrophils/100 WBC (Bld) 62.0 % Normal 37.0-80.0 [facility] ([place] Comment on above: Performed By: #### C BC, ANEU, ADIFF #### [address] [address] #### GFR, LIPID, CMP #### [address] [address] .NEUABSon 07-24-2018 Neutrophils (Bld) [#/Vol] 6.40 10 3/mcL High 2.85-6.16 [facility] ([place] Comment on above: Performed By: #### C BC, ANEU, ADIFF #### [place] [address] #### GFR, LIPID, CMP #### [place] [address] ABO/Rh Retype Gelon 07-25-19 19 ABO/Rh Retype Gel Positive [facility] ([place] Comment on above: Performed By: #### C BC, ANEU, ADIFF #### [place] [address] #### GFR, LIPID, CMP #### [place] [address] APTTon 07-24-2018 aPTT Coag (Bld) [Time] 33.0 s Normal 24.4-35.6 [facility] ([place] Comment on above: Result Comment: For Heparin anticoagulation therapy, the recommended therapeutic range is: 47.7-87.7 seconds (1.5 - 2.5 the normal plasma mean). Patients on heparin therapy may have an extreme result. Performed By: #### C BC, ANEU, ADIFF #### [place] [address] #### GFR, LIPID, CMP #### [place] [address] aPTT Coag (Bld) [Time] Unknown Normal [facility] ([place] Comment on above: Performed By: #### C BC, ANEU, ADIFF #### [place] [address] #### GFR, LIPID, CMP #### [place] [id number] CBCon 07-24-2018 Erythrocyte distribution width (RBC) [Ratio] 13.9 % Normal 11.5-14.5 [facility] ([place] Comment on above: Performed By: #### C BC, ANEU, ADIFF #### [address] [address] #### GFR, LIPID, CMP #### [place] [address] Hematocrit (Bld) [Volume fraction] 40.3 % Normal 37.0-47.0 [facility] ([place] Comment on above: Performed By: #### C BC, ANEU, ADIFF #### [place] [address] #### GFR, LIPID, CMP #### [place] [address] Hemoglobin (Bld) [Mass/Vol] 13.3 G/dL Normal 12.0-16.0 [facility] ([place] Comment on above: Performed By: #### C BC, ANEU, ADIFF #### [place] [address] #### GFR, LIPID, CMP #### [place] [address] MCH (RBC) [Entitic mass] 30.2 pg Normal 27.0-31.2 [facility] ([place] Comment on above: Performed By: #### C BC, ANEU, ADIFF #### [place] [address] #### GFR, LIPID, CMP #### [place] [address] MCHC (RBC) [Mass/Vol] 32.9 G/dL Low 33.0-37.0 [facility] ([place]) Comment on above: Performed By: #### C BC, ANEU, ADIFF #### [place] [address] #### GFR, LIPID, CMP #### [facility] [address] [place], [place] [address] MCV (RBC) [Entitic vol] 91.9 fL Normal 80.0-94.0 [facility] ([place] Comment on above: Performed By: #### C BC, ANEU, ADIFF #### [place] [address] #### GFR, LIPID, CMP #### [address] [address] Platelet mean volume (Bld) [Entitic vol] 7.3 fL Low 7.4-10.4 [facility] ([place] Comment on above: Performed By: #### C BC, ANEU, ADIFF #### [place] [address] #### GFR, LIPID, CMP #### [place] [address] Platelets (Bld) [#/Vol] 407 10 3/mcL High 130-400 [facility] ([place] Comment on above: Performed By: #### C BC, ANEU, ADIFF #### [place] [address] #### GFR, LIPID, CMP #### [place] [id number] RBC (Bld) [#/Vol] 4.39 10 6/mcL Normal 4.20-5.40 [facility] ([place] Comment on above: Performed By: #### C BC, ANEU, ADIFF #### [place] [address] #### GFR, LIPID, CMP #### [address] [address] WBC (Bld) [#/Vol] 10.40 10 3/mcL Normal 4.60-10.80 [facility] ([place] Comment on above: Performed By: #### C BC, ANEU, ADIFF #### [place] [address] #### GFR, LIPID, CMP #### [address] [address] PROon 07-24-2018 INR Coag (PPP) [Relative time] 1.2 {INR} Normal 0.9-1.2 [facility] ([place] Comment on above: Result Comment: Dean dard Dose 2.0 - 3.0 High Dose 2.5 - 3.5 The recommended therapeutic range for oral anticoagulant therapy is: LOW RISK: Prophylaxis of venous thrombosis INR: 2.0 - 3.0 Treatment of pulmonary embolism 2.0 - 3.0 Prevention of systemic embolism 2.0 - 3.0 HIGH RISK: Mechanical prosthetic valves 2.5 - 3.5 Performed By: #### C BC, ANEU, ADIFF #### [address] [address] #### GFR, LIPID, CMP #### [place] [address] PT Coag (PPP) [Time] 12.4 s Normal 9.3-14.6 [facility] ([place] Comment on above: Performed By: #### C BC, ANEU, ADIFF #### [place] [address] #### GFR, LIPID, CMP #### [place] [address] CURon 07-20-2018 CUR . MICRO - Microbiology PROCEDURE: Urine Culture [*1] SOURCE: Urine, Clean Catch BODY SITE: COLLECTED DATE/TIME: 07/18/2018 11:47 EDT RECEIVED DATE/TIME: 07/18/2018 20:54 EDT START DATE/TIME: 07/18/2018 20:54 EDT FREE TEXT SOURCE: FINAL REPORTS Final Report [] Verified Date/Time/Personnel: 07/20/2018 08:07 EDT No growth at 48 hours. Sensitivity testing not indicated. PRELIMINARY REPORTS Preliminary Report [] Verified Date/Time/Personnel: 07/19/2018 08:22 EDT No growth to date Performing Locations *1: This test was performed at: [address], [address] [place] [address] ([place] Comment on above: Performed By: #### C BC, ANEU, ADIFF #### [place] [address] #### GFR, LIPID, CMP #### [address] [address] .Auto Diffon 07-18-2018 Ammonia (P) [Mass/Vol] 1.50 10 3/mcL High 0.15-1.00 [facility] ([place]) Comment on above: Performed By: #### C BC, ANEU, ADIFF #### [place] [address] #### GFR, LIPID, CMP #### [address] [address] Basophils (Bld) [#/Vol] 0.00 10 3/mcL Normal 0.00-0.19 [facility] ([place] Comment on above: Performed By: #### C BC, ANEU, ADIFF #### [place] [address] #### GFR, LIPID, CMP #### [place] [address] Basophils/100 WBC (Bld) 0.2 % Normal 0.0-2.5 [facility] ([place] Comment on above: Performed By: #### C BC, ANEU, ADIFF #### [place] [address] #### GFR, LIPID, CMP #### [address] [address] Eosinophils (Bld) [#/Vol] 0.20 10 3/mcL Normal 0.00-0.40 [facility] ([place] Comment on above: Performed By: #### C BC, ANEU, ADIFF #### [place] [address] #### GFR, LIPID, CMP #### [address] [address] Eosinophils/100 WBC (Bld) 1.2 % Normal 0.0-7.0 [facility] ([place] Comment on above: Performed By: #### C BC, ANEU, ADIFF #### [address] [address] #### GFR, LIPID, CMP #### [address] [address] Lymphocytes (Bld) [#/Vol] 2.10 10 3/mcL Normal 0.77-3.85 [facility] ([place] Comment on above: Performed By: #### C BC, ANEU, ADIFF #### [address] [address] #### GFR, LIPID, CMP #### [address] [address] Lymphocytes/100 WBC (Bld) 13.7 % Normal 10.0-50.0 [facility] ([place] Comment on above: Performed By: #### C BC, ANEU, ADIFF #### [address] [address] #### GFR, LIPID, CMP #### [address] [address] Monocytes/100 WBC (Bld) 9.5 % Normal 1.7-13.0 [facility] ([place] Comment on above: Performed By: #### C BC, ANEU, ADIFF #### [address] [address] #### GFR, LIPID, CMP #### [address] [address] Neutrophils/100 WBC (Bld) 75.4 % Normal 37.0-80.0 [facility] ([place] Comment on above: Performed By: #### C BC, ANEU, ADIFF #### [address] [address] #### GFR, LIPID, CMP #### [address] [address] .GFRon 07-18-2018 GFR Non- 107 ml/min/1.73sqm Normal [facility] ([place] Comment on above: Result Comment: GFR Population mean for , Non- Americans Ages 20-29 = 116 mL/min/1.73 sq.m. Ages 30-39 = 107 mL/min/1.73 sq.m. Ages 40-49 = 99 mL/min/1.73 sq.m. Ages 50-59 = 93 mL/min/1.73 sq.m. Ages 60-69 = 85 mL/min/1.73 sq.m. Ages 70+ = 75 mL/min/1.73 sq.m. Chronic Kidney Disease: Less than 60 mL/min/1.73 square meters End Stage Renal Disease: Less than 15 mL/min/1.73 square meters Performed By: #### C BC, ANEU, ADIFF #### [address] [address] #### GFR, LIPID, CMP #### [address] [address] GFR 130 ml/min/1.73sqm Normal [facility] ([place]) Comment on above: Result Comment: GFR Population mean for , Non- Americans Ages 20-29 = 116 mL/min/1.73 sq.m. Ages 30-39 = 107 mL/min/1.73 sq.m. Ages 40-49 = 99 mL/min/1.73 sq.m. Ages 50-59 = 93 mL/min/1.73 sq.m. Ages 60-69 = 85 mL/min/1.73 sq.m. Ages 70+ = 75 mL/min/1.73 sq.m. Chronic Kidney Disease: Less than 60 mL/min/1.73 square meters End Stage Renal Disease: Less than 15 mL/min/1.73 square meters Performed By: #### C BC, ANEU, ADIFF #### [address] [address] #### GFR, LIPID, CMP #### [address] [address] .NEUABSon 07-18-2018 Neutrophils (Bld) [#/Vol] 11.70 10 3/mcL High 2.85-6.16 [facility] ([place]) Comment on above: Performed By: #### C BC, ANEU, ADIFF #### [address] [address] #### GFR, LIPID, CMP #### [address] [address] CBCon 07-18-2018 Erythrocyte distribution width (RBC) [Ratio] 14.0 % Normal 11.5-14.5 [facility] ([place] Comment on above: Performed By: #### C BC, ANEU, ADIFF #### [place] [address] #### GFR, LIPID, CMP #### [place] [address] Hematocrit (Bld) [Volume fraction] 40.1 % Normal 37.0-47.0 [facility] ([place]) Comment on above: Performed By: #### C BC, ANEU, ADIFF #### [place] [address] #### GFR, LIPID, CMP #### [place] [address] Hemoglobin (Bld) [Mass/Vol] 13.4 G/dL Normal 12.0-16.0 [facility] ([place]) Comment on above: Performed By: #### C BC, ANEU, ADIFF #### [place] [address] #### GFR, LIPID, CMP #### [place] [address] MCH (RBC) [Entitic mass] 31.0 pg Normal 27.0-31.2 [facility] ([place]) Comment on above: Performed By: #### C BC, ANEU, ADIFF #### [place] [address] #### GFR, LIPID, CMP #### [place] [address] MCHC (RBC) [Mass/Vol] 33.5 G/dL Normal 33.0-37.0 [facility] ([place]) Comment on above: Performed By: #### C BC, ANEU, ADIFF #### [place] [address] #### GFR, LIPID, CMP #### [address] [address] MCV (RBC) [Entitic vol] 92.5 fL Normal 80.0-94.0 [facility] ([place] Comment on above: Performed By: #### C BC, ANEU, ADIFF #### [address] [address] #### GFR, LIPID, CMP #### [address] [address] Platelet mean volume (Bld) [Entitic vol] 7.4 fL Normal 7.4-10.4 [facility] ([place] Comment on above: Performed By: #### C BC, ANEU, ADIFF #### [address] [address] #### GFR, LIPID, CMP #### [address] [address] Platelets (Bld) [#/Vol] 484 10 3/mcL High 130-400 [facility] ([place]) Comment on above: Performed By: #### C BC, ANEU, ADIFF #### [address] [address] #### GFR, LIPID, CMP #### [address] [address] RBC (Bld) [#/Vol] 4.33 10 6/mcL Normal 4.20-5.40 [facility] ([place]) Comment on above: Performed By: #### C BC, ANEU, ADIFF #### [place] [address] #### GFR, LIPID, CMP #### [address] [address] WBC (Bld) [#/Vol] 15.50 10 3/mcL High 4.60-10.80 [facility] ([place]) Comment on above: Performed By: #### C BC, ANEU, ADIFF #### [address] [address] #### GFR, LIPID, CMP #### [address] [address] CMPon 07-18-2018 Albumin [Mass/Vol] 3.8 G/dL Normal 3.5-5.0 Counts include 234 beds at the [facility] ([place] Comment on above: Performed By: #### C BC, ANEU, ADIFF #### [address] [address] #### GFR, LIPID, CMP #### [place] [address] Albumin/Globulin [Mass ratio] 1.2 {ratio} Normal 1.1-2.5 [facility] ([place] Comment on above: Performed By: #### C BC, ANEU, ADIFF #### [place] [address] #### GFR, LIPID, CMP #### [address] [address] ALP [Catalytic activity/Vol] 98 U/L Normal 40-135 [facility] ([place] Comment on above: Performed By: #### C BC, ANEU, ADIFF #### [address] [address] #### GFR, LIPID, CMP #### [address] [address] ALT [Catalytic activity/Vol] 25 U/L Normal 10-35 [facility] ([place] Comment on above: Performed By: #### C BC, ANEU, ADIFF #### [address] [address] #### GFR, LIPID, CMP #### [address] [address] AST [Catalytic activity/Vol] 17 U/L Normal 10-40 [facility] ([place]) Comment on above: Performed By: #### C BC, ANEU, ADIFF #### [address] [address] #### GFR, LIPID, CMP #### [address] [address] Bili Total 0.2 mg/dL Normal 0.2-1.0 [facility] ([place] Comment on above: Performed By: #### C BC, ANEU, ADIFF #### [address] [address] #### GFR, LIPID, CMP #### [address] [address] Calcium [Mass/Vol] 9.0 mg/dL Normal 8.4-10.2 Counts include 234 beds at the [facility] ([place] Comment on above: Performed By: #### C BC, ANEU, ADIFF #### [address] [address] #### GFR, LIPID, CMP #### [address] [address] Chloride [Moles/Vol] 102 mmol/L Normal 98-107 [facility] ([place] Comment on above: Performed By: #### C BC, ANEU, ADIFF #### [address] [address] #### GFR, LIPID, CMP #### [address] [address] CO2 [Moles/Vol] 26 mmol/L Normal 22-29 [facility] ([place] Comment on above: Performed By: #### C BC, ANEU, ADIFF #### [address] [address] #### GFR, LIPID, CMP #### [address] [address] Creatinine [Mass/Vol] 0.59 mg/dL Normal 0.55-1.02 [facility] ([place] Comment on above: Performed By: #### C BC, ANEU, ADIFF #### [address] [address] #### GFR, LIPID, CMP #### [address] [address] Electrolyte Balance 11.0 mEq/L Normal [facility] ([place]) Comment on above: Performed By: #### C BC, ANEU, ADIFF #### [address] [address] #### GFR, LIPID, CMP #### [address] [address] Globulin (S) [Mass/Vol] 3.2 G/dL Normal [facility] ([place] Comment on above: Performed By: #### C BC, ANEU, ADIFF #### [address] [address] #### GFR, LIPID, CMP #### [address] [address] Glucose [Mass/Vol] 85 mg/dL Normal 70-105 Counts include 234 beds at the [facility] ([place] Comment on above: Performed By: #### C BC, ANEU, ADIFF #### [address] [address] #### GFR, LIPID, CMP #### [address] [address] Potassium [Moles/Vol] 4.4 mmol/L Normal 3.5-5.1 [facility] ([place] Comment on above: Performed By: #### C BC, ANEU, ADIFF #### [address] [address] #### GFR, LIPID, CMP #### [address] [address] Protein [Mass/Vol] 7.0 G/dL Normal 6.4-8.2 Counts include 234 beds at the [facility] ([place] Comment on above: Performed By: #### C BC, ANEU, ADIFF #### [address] [address] #### GFR, LIPID, CMP #### [address] [address] Sodium [Moles/Vol] 139 mmol/L Normal 136-145 Counts include 234 beds at the [facility] ([place] Comment on above: Performed By: #### C BC, ANEU, ADIFF #### [address] [address] #### GFR, LIPID, CMP #### [address] [address] Urea nitrogen [Mass/Vol] 11 mg/dL Normal 7-18 [facility] ([place] Comment on above: Performed By: #### C BC, ANEU, ADIFF #### [address] [address] #### GFR, LIPID, CMP #### [address] [address] Urea nitrogen/Creatinine [Mass ratio] 19 ratio Normal 7-27 [facility] ([place] Comment on above: Performed By: #### C BC, ANEU, ADIFF #### [address] [address] #### GFR, LIPID, CMP #### [address] [address] Gel ABOon 07-18-2018 ABO/Rh Interp Positive [facility] ([place] Comment on above: Performed By: #### C BC, ANEU, ADIFF #### [place] [address] #### GFR, LIPID, CMP #### [address] [address] Gel ABSon 07-18-2018 Antibody Screen Gel Negative Normal [facility] ([place]) Comment on above: Performed By: #### C BC, ANEU, ADIFF #### [place] [address] #### GFR, LIPID, CMP #### [address] [address] UAon 07-18-2018 Color (U) Yellow Normal [facility] ([place] Comment on above: Performed By: #### C BC, ANEU, ADIFF #### [address] [address] #### GFR, LIPID, CMP #### [address] [address] Glucose (U) [Mass/Vol] Negative Normal Negative [facility] ([place] Comment on above: Performed By: #### C BC, ANEU, ADIFF #### [place] [address] #### GFR, LIPID, CMP #### [address] [address] Ketones Ql (U) Trace Negative [facility] ([place] Comment on above: Performed By: #### C BC, ANEU, ADIFF #### [address] [address] #### GFR, LIPID, CMP #### [address] [address] UA Appear Clear Normal Clear [facility] ([place] Comment on above: Performed By: #### C BC, ANEU, ADIFF #### [address] [address] #### GFR, LIPID, CMP #### [address] [address] UA Blood Negative Normal Negative [facility] ([place] Comment on above: Performed By: #### C BC, ANEU, ADIFF #### [address] [address] #### GFR, LIPID, CMP #### [address] [address] UA Leuk Est Negative Normal Negative [facility] ([place] Comment on above: Performed By: #### C BC, ANEU, ADIFF #### [address] [address] #### GFR, LIPID, CMP #### [address] [address] UA Nitrite Negative Normal Negative [facility] ([place] Comment on above: Performed By: #### C BC, ANEU, ADIFF #### [address] [address] #### GFR, LIPID, CMP #### [address] [address] UA pH 5.0 Normal 5.0 - 8.0 [facility] ([place] Comment on above: Performed By: #### C BC, ANEU, ADIFF #### [address] [address] #### GFR, LIPID, CMP #### [place] [address] UA Protein Negative Normal Negative [facility] ([place] Comment on above: Performed By: #### C BC, ANEU, ADIFF #### [place] [address] #### GFR, LIPID, CMP #### [place] [address] UA Spec Grav >=1.030 1.015-1.025 [facility] ([place] Comment on above: Performed By: #### C BC, ANEU, ADIFF #### [place] [address] #### GFR, LIPID, CMP #### [place] [address] UA Specimen Type Clean Catch Normal [facility] ([place] Comment on above: Performed By: #### C BC, ANEU, ADIFF #### [place] [address] #### GFR, LIPID, CMP #### [place] [address] UA Urobilinogen 0.2 E.U./dL Normal 0.2-1.0 [facility] ([place] Comment on above: Performed By: #### C BC, ANEU, ADIFF #### [place] [address] #### GFR, LIPID, CMP #### [place] [address] Urobilinogen Qn (U) Negative Normal Negative [facility] ([place] Comment on above: Performed By: #### C BC, ANEU, ADIFF #### [place] [address] #### GFR, LIPID, CMP #### [place] [address] Final Surgical Pathology Rep [facility] 07-14-2018 Final Surgical Pathology Report . Pathology Reports Accession: Collected Date/Time: Received Date/Time: Pathologist: [id number] 07/12/2018 08:16 EDT 07/13/2018 08:16 EDT CONSUELO LAGUNA MD Final Surgical Pathology Report DIAGNOSIS: CERVIX, BIOPSY @ 7:00- MILD KOILOCYTIC CHANGE IS PRESENT. NEGATIVE FOR DYSPLASIA. COMMENT: [facility] - D# [id number] CLINICAL INFORMATION: LEUKOPLAKIA OF CERVIX UTERI SPECIMEN: A CERVIX, BX - 7 O'CLOCK GROSS DESCRIPTION: Received in formalin labeled cervical biopsy at 7:00 is a 0.3 cm nguyễn glistening soft tissue and a small amount of clear mucus. TS -1 Dictated by Yenifer ROJAS ([facility]) MICROSCOPIC DESCRIPTION: Slides reviewed. Electronically Signed by Pathology Report verified by [facility] Electronically signed by CONSUELO LAGUNA Sign out Date: 07/14/2018 12:12 Performing Lab: [address] Normal [facility] ([place] Comment on above: Performed By: #### C BC, ANEU, ADIFF #### [place] [address] #### GFR, LIPID, CMP #### [place] [address] .Auto Diffon 07-06-2018 Ammonia (P) [Mass/Vol] 1.00 10 3/mcL Normal 0.15-1.00 [facility] ([place] Comment on above: Performed By: #### C BC, ANEU, ADIFF #### [place] [address] #### GFR, LIPID, CMP #### [place] [address] Basophils (Bld) [#/Vol] 0.10 10 3/mcL Normal 0.00-0.19 [facility] ([place] Comment on above: Performed By: #### C BC, ANEU, ADIFF #### [place] [address] #### GFR, LIPID, CMP #### [place] [address] Basophils/100 WBC (Bld) 0.6 % Normal 0.0-2.5 [facility] ([place] Comment on above: Performed By: #### C BC, ANEU, ADIFF #### [address] [address] #### GFR, LIPID, CMP #### [address] [address] Eosinophils (Bld) [#/Vol] 0.20 10 3/mcL Normal 0.00-0.40 [facility] ([place]) Comment on above: Performed By: #### C BC, ANEU, ADIFF #### [place] [address] #### GFR, LIPID, CMP #### [address] [address] Eosinophils/100 WBC (Bld) 2.1 % Normal 0.0-7.0 [facility] ([place] Comment on above: Performed By: #### C BC, ANEU, ADIFF #### [address] [address] #### GFR, LIPID, CMP #### [address] [address] Lymphocytes (Bld) [#/Vol] 2.30 10 3/mcL Normal 0.77-3.85 [facility] ([place] Comment on above: Performed By: #### C BC, ANEU, ADIFF #### [address] [address] #### GFR, LIPID, CMP #### [address] [address] Lymphocytes/100 WBC (Bld) 22.5 % Normal 10.0-50.0 [facility] ([place] Comment on above: Performed By: #### C BC, ANEU, ADIFF #### [address] [address] #### GFR, LIPID, CMP #### [address] [address] Monocytes/100 WBC (Bld) 9.6 % Normal 1.7-13.0 [facility] ([place] Comment on above: Performed By: #### C BC, ANEU, ADIFF #### [address] [address] #### GFR, LIPID, CMP #### [address] [address] Neutrophils/100 WBC (Bld) 65.2 % Normal 37.0-80.0 [facility] ([place] Comment on above: Performed By: #### C BC, ANEU, ADIFF #### [address] [address] #### GFR, LIPID, CMP #### [address] [address] .GFRon 07-06-2018 GFR Non- 96 ml/min/1.73sqm Normal [facility] ([place] Comment on above: Result Comment: GFR Population mean for , Non- Americans Ages 20-29 = 116 mL/min/1.73 sq.m. Ages 30-39 = 107 mL/min/1.73 sq.m. Ages 40-49 = 99 mL/min/1.73 sq.m. Ages 50-59 = 93 mL/min/1.73 sq.m. Ages 60-69 = 85 mL/min/1.73 sq.m. Ages 70+ = 75 mL/min/1.73 sq.m. Chronic Kidney Disease: Less than 60 mL/min/1.73 square meters End Stage Renal Disease: Less than 15 mL/min/1.73 square meters Performed By: #### C BC, ANEU, ADIFF #### [address] [address] #### GFR, LIPID, CMP #### [address] [address] GFR 116 ml/min/1.73sqm Normal [facility] ([place] Comment on above: Result Comment: GFR Population mean for , Non- Americans Ages 20-29 = 116 mL/min/1.73 sq.m. Ages 30-39 = 107 mL/min/1.73 sq.m. Ages 40-49 = 99 mL/min/1.73 sq.m. Ages 50-59 = 93 mL/min/1.73 sq.m. Ages 60-69 = 85 mL/min/1.73 sq.m. Ages 70+ = 75 mL/min/1.73 sq.m. Chronic Kidney Disease: Less than 60 mL/min/1.73 square meters End Stage Renal Disease: Less than 15 mL/min/1.73 square meters Performed By: #### C BC, ANEU, ADIFF #### [address] [address] #### GFR, LIPID, CMP #### [address] [address] .NEUABSon 07-06-2018 Neutrophils (Bld) [#/Vol] 6.70 10 3/mcL High 2.85-6.16 [facility] ([place] Comment on above: Performed By: #### C BC, ANEU, ADIFF #### [place] [address] #### GFR, LIPID, CMP #### [address] [address] BMPon 07-06-2018 Calcium [Mass/Vol] 9.0 mg/dL Normal 8.4-10.2 Counts include 234 beds at the [facility] ([place] Comment on above: Performed By: #### C BC, ANEU, ADIFF #### [place] [address] #### GFR, LIPID, CMP #### [address] [address] Chloride [Moles/Vol] 103 mmol/L Normal 98-107 [facility] ([place] Comment on above: Performed By: #### C BC, ANEU, ADIFF #### [address] [address] #### GFR, LIPID, CMP #### [place] [address] CO2 [Moles/Vol] 26 mmol/L Normal 22-29 [facility] ([place] Comment on above: Performed By: #### C BC, ANEU, ADIFF #### [place] [address] #### GFR, LIPID, CMP #### [address] [address] Creatinine [Mass/Vol] 0.65 mg/dL Normal 0.55-1.02 [facility] ([place]) Comment on above: Performed By: #### C BC, ANEU, ADIFF #### [address] [address] #### GFR, LIPID, CMP #### [address] [address] Electrolyte Balance 9.0 mEq/L Normal [facility] ([place]) Comment on above: Performed By: #### C BC, ANEU, ADIFF #### [address] [address] #### GFR, LIPID, CMP #### [address] [address] Glucose [Mass/Vol] 94 mg/dL Normal 70-105 Counts include 234 beds at the [facility] ([place] Comment on above: Performed By: #### C BC, ANEU, ADIFF #### [address] [address] #### GFR, LIPID, CMP #### [address] [address] Potassium [Moles/Vol] 4.3 mmol/L Normal 3.5-5.1 [facility] ([place] Comment on above: Performed By: #### C BC, ANEU, ADIFF #### [address] [address] #### GFR, LIPID, CMP #### [address] [address] Sodium [Moles/Vol] 138 mmol/L Normal 136-145 Counts include 234 beds at the [facility] ([place] Comment on above: Performed By: #### C BC, ANEU, ADIFF #### [address] [address] #### GFR, LIPID, CMP #### [address] [address] Urea nitrogen [Mass/Vol] 14 mg/dL Normal 7-18 [facility] ([place] Comment on above: Performed By: #### C BC, ANEU, ADIFF #### [place] [address] #### GFR, LIPID, CMP #### [address] [address] Urea nitrogen/Creatinine [Mass ratio] 22 ratio Normal 7-27 [facility] ([place] Comment on above: Performed By: #### C BC, ANEU, ADIFF #### [place] [address] #### GFR, LIPID, CMP #### [address] [address] CBCon 07-06-2018 Erythrocyte distribution width (RBC) [Ratio] 14.4 % Normal 11.5-14.5 [facility] ([place] Comment on above: Performed By: #### C BC, ANEU, ADIFF #### [place] [address] #### GFR, LIPID, CMP #### [place] [address] Hematocrit (Bld) [Volume fraction] 39.3 % Normal 37.0-47.0 [facility] ([place] Comment on above: Performed By: #### C BC, ANEU, ADIFF #### [place] [address] #### GFR, LIPID, CMP #### [place] [address] Hemoglobin (Bld) [Mass/Vol] 13.1 G/dL Normal 12.0-16.0 [facility] ([place] Comment on above: Performed By: #### C BC, ANEU, ADIFF #### [place] [address] #### GFR, LIPID, CMP #### [address] [address] MCH (RBC) [Entitic mass] 30.4 pg Normal 27.0-31.2 [facility] ([place] Comment on above: Performed By: #### C BC, ANEU, ADIFF #### [address] [address] #### GFR, LIPID, CMP #### [address] [address] MCHC (RBC) [Mass/Vol] 33.4 G/dL Normal 33.0-37.0 [facility] ([place] Comment on above: Performed By: #### C BC, ANEU, ADIFF #### [place] [address] #### GFR, LIPID, CMP #### [address] [address] MCV (RBC) [Entitic vol] 91.3 fL Normal 80.0-94.0 [facility] ([place] Comment on above: Performed By: #### C BC, ANEU, ADIFF #### [place] [address] #### GFR, LIPID, CMP #### [place] [address] Platelet mean volume (Bld) [Entitic vol] 7.1 fL Low 7.4-10.4 [facility] ([place] Comment on above: Performed By: #### C BC, ANEU, ADIFF #### [place] [address] #### GFR, LIPID, CMP #### [place] [id number] Platelets (Bld) [#/Vol] 367 10 3/mcL Normal 130-400 [facility] ([place] Comment on above: Performed By: #### C BC, ANEU, ADIFF #### [address] [address] #### GFR, LIPID, CMP #### [place] [id number] RBC (Bld) [#/Vol] 4.31 10 6/mcL Normal 4.20-5.40 [facility] ([place] Comment on above: Performed By: #### C BC, ANEU, ADIFF #### [address] [address] #### GFR, LIPID, CMP #### [address] [address] WBC (Bld) [#/Vol] 10.30 10 3/mcL Normal 4.60-10.80 [facility] ([place] Comment on above: Performed By: #### C BC, ANEU, ADIFF #### [address] [address] #### GFR, LIPID, CMP #### [address] [address] .GFRon 03-28-2018 GFR Non- 94 ml/min/1.73sqm Normal [facility] ([place] Comment on above: Result Comment: GFR Population mean for , Non- Americans Ages 20-29 = 116 mL/min/1.73 sq.m. Ages 30-39 = 107 mL/min/1.73 sq.m. Ages 40-49 = 99 mL/min/1.73 sq.m. Ages 50-59 = 93 mL/min/1.73 sq.m. Ages 60-69 = 85 mL/min/1.73 sq.m. Ages 70+ = 75 mL/min/1.73 sq.m. Chronic Kidney Disease: Less than 60 mL/min/1.73 square meters End Stage Renal Disease: Less than 15 mL/min/1.73 square meters Performed By: #### C BC, ANEU, ADIFF #### [address] [address] #### GFR, LIPID, CMP #### [address] [address] GFR 114 ml/min/1.73sqm Normal [facility] ([place] Comment on above: Result Comment: GFR Population mean for , Non- Americans Ages 20-29 = 116 mL/min/1.73 sq.m. Ages 30-39 = 107 mL/min/1.73 sq.m. Ages 40-49 = 99 mL/min/1.73 sq.m. Ages 50-59 = 93 mL/min/1.73 sq.m. Ages 60-69 = 85 mL/min/1.73 sq.m. Ages 70+ = 75 mL/min/1.73 sq.m. Chronic Kidney Disease: Less than 60 mL/min/1.73 square meters End Stage Renal Disease: Less than 15 mL/min/1.73 square meters Performed By: #### C BC, ANEU, ADIFF #### [address] [address] #### GFR, LIPID, CMP #### [address] [address] CMPon 03-28-2018 Albumin [Mass/Vol] 3.8 G/dL Normal 3.5-5.0 Counts include 234 beds at the [facility] ([place] Comment on above: Performed By: #### C BC, ANEU, ADIFF #### [place] [address] #### GFR, LIPID, CMP #### [place] [address] Albumin/Globulin [Mass ratio] 1.1 {ratio} Normal 1.1-2.5 [facility] ([place] Comment on above: Performed By: #### C BC, ANEU, ADIFF #### [place] [address] #### GFR, LIPID, CMP #### [place] [address] ALP [Catalytic activity/Vol] 84 U/L Normal 40-135 [facility] ([place] Comment on above: Performed By: #### C BC, ANEU, ADIFF #### [address] [address] #### GFR, LIPID, CMP #### [address] [address] ALT [Catalytic activity/Vol] 20 U/L Normal 10-35 [facility] ([place] Comment on above: Performed By: #### C BC, ANEU, ADIFF #### [address] [address] #### GFR, LIPID, CMP #### [address] [address] AST [Catalytic activity/Vol] 16 U/L Normal 10-40 [facility] ([place] Comment on above: Performed By: #### C BC, ANEU, ADIFF #### [address] [address] #### GFR, LIPID, CMP #### [address] [address] Bili Total 0.4 mg/dL Normal 0.2-1.0 [facility] ([place] Comment on above: Performed By: #### C BC, ANEU, ADIFF #### [address] [address] #### GFR, LIPID, CMP #### [address] [address] Calcium [Mass/Vol] 9.4 mg/dL Normal 8.4-10.2 Counts include 234 beds at the [facility] ([place] Comment on above: Performed By: #### C BC, ANEU, ADIFF #### [address] [address] #### GFR, LIPID, CMP #### [address] [address] Chloride [Moles/Vol] 100 mmol/L Normal 98-107 [facility] ([place] Comment on above: Performed By: #### C BC, ANEU, ADIFF #### [address] [address] #### GFR, LIPID, CMP #### [address] [address] CO2 [Moles/Vol] 25 mmol/L Normal 22-29 [facility] ([place] Comment on above: Performed By: #### C BC, ANEU, ADIFF #### [address] [address] #### GFR, LIPID, CMP #### [address] [address] Creatinine [Mass/Vol] 0.66 mg/dL Normal 0.55-1.02 [facility] ([place] Comment on above: Performed By: #### C BC, ANEU, ADIFF #### [address] [address] #### GFR, LIPID, CMP #### [address] [address] Electrolyte Balance 11.0 mEq/L Normal [facility] ([place]) Comment on above: Performed By: #### C BC, ANEU, ADIFF #### [address] [address] #### GFR, LIPID, CMP #### [address] [address] Globulin (S) [Mass/Vol] 3.6 G/dL Normal [facility] ([place] Comment on above: Performed By: #### C BC, ANEU, ADIFF #### [address] [address] #### GFR, LIPID, CMP #### [address] [address] Glucose [Mass/Vol] 100 mg/dL Normal 70-105 Counts include 234 beds at the [facility] ([place]) Comment on above: Performed By: #### C BC, ANEU, ADIFF #### [address] [address] #### GFR, LIPID, CMP #### [address] [address] Potassium [Moles/Vol] 4.6 mmol/L Normal 3.5-5.1 Formerly [facility] ([place]) Comment on above: Performed By: #### C BC, ANEU, ADIFF #### [address] [address] #### GFR, LIPID, CMP #### [address] [address] Protein [Mass/Vol] 7.4 G/dL Normal 6.4-8.2 Counts include 234 beds at the [facility] ([place]) Comment on above: Performed By: #### C BC, ANEU, ADIFF #### [address] [address] #### GFR, LIPID, CMP #### [address] [address] Sodium [Moles/Vol] 136 mmol/L Normal 136-145 Counts include 234 beds at the [facility] ([place]) Comment on above: Performed By: #### C BC, ANEU, ADIFF #### [address] [address] #### GFR, LIPID, CMP #### [address] [address] Urea nitrogen [Mass/Vol] 7 mg/dL Normal 7-18 [facility]ly [facility] ([place]) Comment on above: Performed By: #### C BC, ANEU, ADIFF #### [place] [address] #### GFR, LIPID, CMP #### [place] [address] Urea nitrogen/Creatinine [Mass ratio] 11 ratio Normal 7-27 [facility] ([place]) Comment on above: Performed By: #### C BC, ANEU, ADIFF #### [place] [address] #### GFR, LIPID, CMP #### [address] [address] .Auto Diffon 03-22-2018 Ammonia (P) [Mass/Vol] 1.30 10 3/mcL High 0.15-1.00 [facility] ([place]) Comment on above: Performed By: #### C BC, ANEU, ADIFF #### [place] [address] #### GFR, LIPID, CMP #### [address] [address] Basophils (Bld) [#/Vol] 0.10 10 3/mcL Normal 0.00-0.19 [facility] ([place]) Comment on above: Performed By: #### C BC, ANEU, ADIFF #### [place] [id number] #### GFR, LIPID, CMP #### [place] [id number] Basophils/100 WBC (Bld) 0.6 % Normal 0.0-2.5 [facility] ([place]) Comment on above: Performed By: #### C BC, ANEU, ADIFF #### [address] [address] #### GFR, LIPID, CMP #### [address] [address] Eosinophils (Bld) [#/Vol] 0.20 10 3/mcL Normal 0.00-0.40 [facility] ([place]) Comment on above: Performed By: #### C BC, ANEU, ADIFF #### [address] [address] #### GFR, LIPID, CMP #### [address] [address] Eosinophils/100 WBC (Bld) 2.1 % Normal 0.0-7.0 [facility] ([place]) Comment on above: Performed By: #### C BC, ANEU, ADIFF #### [place] [address] #### GFR, LIPID, CMP #### [address] [address] Lymphocytes (Bld) [#/Vol] 1.90 10 3/mcL Normal 0.77-3.85 [facility] ([place]) Comment on above: Performed By: #### C BC, ANEU, ADIFF #### [place] [address] #### GFR, LIPID, CMP #### [address] [address] Lymphocytes/100 WBC (Bld) 16.4 % Normal 10.0-50.0 [facility] ([place]) Comment on above: Performed By: #### C BC, ANEU, ADIFF #### [address] [address] #### GFR, LIPID, CMP #### [address] [address] Monocytes/100 WBC (Bld) 10.6 % Normal 1.7-13.0 [facility] ([place] Comment on above: Performed By: #### C BC, ANEU, ADIFF #### [place] [address] #### GFR, LIPID, CMP #### [address] [address] Neutrophils/100 WBC (Bld) 70.3 % Normal 37.0-80.0 [facility] ([place] Comment on above: Performed By: #### C BC, ANEU, ADIFF #### [place] [address] #### GFR, LIPID, CMP #### [address] [address] .NEUABSon 03-22-2018 Neutrophils (Bld) [#/Vol] 8.30 10 3/mcL High 2.85-6.16 [facility] ([place] Comment on above: Performed By: #### C BC, ANEU, ADIFF #### [place] [address] #### GFR, LIPID, CMP #### [address] [address] CBCon 03-22-2018 Erythrocyte distribution width (RBC) [Ratio] 12.9 % Normal 11.5-14.5 [facility] ([place] Comment on above: Performed By: #### C BC, ANEU, ADIFF #### [place] [address] #### GFR, LIPID, CMP #### [place] [address] Hematocrit (Bld) [Volume fraction] 40.3 % Normal 37.0-47.0 [facility] ([place] Comment on above: Performed By: #### C BC, ANEU, ADIFF #### [place] [address] #### GFR, LIPID, CMP #### [place] [phone] Hemoglobin (Bld) [Mass/Vol] 13.4 G/dL Normal 12.0-16.0 [facility] ([place] Comment on above: Performed By: #### C BC, ANEU, ADIFF #### [address] [address] #### GFR, LIPID, CMP #### [address] [address] MCH (RBC) [Entitic mass] 30.8 pg Normal 27.0-31.2 [facility] ([place] Comment on above: Performed By: #### C BC, ANEU, ADIFF #### [place] [address] #### GFR, LIPID, CMP #### [address] [address] MCHC (RBC) [Mass/Vol] 33.2 G/dL Normal 33.0-37.0 [facility] ([place] Comment on above: Performed By: #### C BC, ANEU, ADIFF #### [place] [address] #### GFR, LIPID, CMP #### [address] [address] MCV (RBC) [Entitic vol] 92.8 fL Normal 80.0-94.0 [facility] ([place] Comment on above: Performed By: #### C BC, ANEU, ADIFF #### [place] [address] #### GFR, LIPID, CMP #### [address] [address] Platelet mean volume (Bld) [Entitic vol] 7.6 fL Normal 7.4-10.4 [facility] ([place] Comment on above: Performed By: #### C BC, ANEU, ADIFF #### [place] [address] #### GFR, LIPID, CMP #### [address] [address] Platelets (Bld) [#/Vol] 549 10 3/mcL High 130-400 [facility] ([place] Comment on above: Performed By: #### C BC, ANEU, ADIFF #### [address] [address] #### GFR, LIPID, CMP #### [address] [address] RBC (Bld) [#/Vol] 4.34 10 6/mcL Normal 4.20-5.40 [facility] ([place]) Comment on above: Performed By: #### C BC, ANEU, ADIFF #### [address] [address] #### GFR, LIPID, CMP #### [address] [address] WBC (Bld) [#/Vol] 11.80 10 3/mcL High 4.60-10.80 [facility] ([place] Comment on above: Performed By: #### C BC, ANEU, ADIFF #### [place] [address] #### GFR, LIPID, CMP #### [place] [address] HIVRPon 03-22-2018 HIV p24 Antigen Non-Reactive Normal Non-Reactive [facility] ([place]) Comment on above: Performed By: #### C BC, ANEU, ADIFF #### [place] [id number] #### GFR, LIPID, CMP #### [place] [address] HIV P24 Int Non-reactive [facility] ([place] Comment on above: Performed By: #### C BC, ANEU, ADIFF #### [address] [address] #### GFR, LIPID, CMP #### [place] [id number] Rapid HIV 1/2 Antibody Non-Reactive Normal Non-Reactive [facility] ([place] Comment on above: Performed By: #### C BC, ANEU, ADIFF #### [place] [id number] #### GFR, LIPID, CMP #### [address] [address] RHIV 1/2 Ab Int Non-Reactive [facility] ([place] Comment on above: Performed By: #### C BC, ANEU, ADIFF #### [address] [address] #### GFR, LIPID, CMP #### [address] [address] LIPIDon 03-22-2018 Cholesterol [Mass/Vol] 241 mg/dL High 0-200 [facility] ([place] Comment on above: Result Comment: Chol esterol Reference Interval: Less than 200 Desirable 200-239 Borderline high risk 240 and above High risk Performed By: #### C BC, ANEU, ADIFF #### [address] [address] #### GFR, LIPID, CMP #### [address] [address] Cholesterol in HDL [Mass/Vol] 44 mg/dL Normal 40-60 [facility] ([place] Comment on above: Performed By: #### C BC, ANEU, ADIFF #### [address] [address] #### GFR, LIPID, CMP #### [address] [address] Cholesterol in LDL [Mass/Vol] 176 mg/dL High 0-130 [facility] ([place] Comment on above: Performed By: #### C BC, ANEU, ADIFF #### [address] [address] #### GFR, LIPID, CMP #### [address] [address] Triglyceride [Mass/Vol] 104 mg/dL Normal 0-150 [facility] ([place] Comment on above: Result Comment: Trig lyceride Reference Interval: Less than 150 Normal 150-199 Borderline high risk 200-499 High risk 500 or higher Very high risk Performed By: #### C BC, ANEU, ADIFF #### [address] [address] #### GFR, LIPID, CMP #### [place] [address] E2on 02-14-2018 Estradiol Level 109 pg/mL Normal [facility] ([place] Comment on above: Result Comment: Adul t Female E2 Reference Ranges (03/19/11): Follicular phase 21 - 165 pg/mL Midcycle 50 - 367 pg/mL Luteal phase 40 - 259 pg/mL Post menopausal 11 - 58 pg/mL Performed By: #### C BC, ANEU, ADIFF #### [address] [address] #### GFR, LIPID, CMP #### [place] [address] FSHon 02-14-2018 FSH 37.2 mIU/mL Normal [facility] ([place] Comment on above: Result Comment: Adul t Female FSH Reference Ranges (02/04/99): Follicular phase 2.5 - 10.2 mIU/mL Midcycle phase 3.4 - 33.4 mIU/mL Luteal phase 1.5 - 9.1 mIU/mL Post menopausal 23.0 -116.3 mIU/mL Adult Male: 1.4 - 18.1 mIU/mL Performed By: #### C BC, ANEU, ADIFF #### [address] [address] #### GFR, LIPID, CMP #### [place] [address] LHon 02-14-2018 LH 30.2 mIU/mL Normal [facility] ([place] Comment on above: Result Comment: Adul t Female LH Reference Ranges (03/19/11): Follicular phase 1.7 - 15.0 mIU/mL Midcycle phase 21.9 - 56.6 mIU/mL Luteal phase 0.6 - 16.3 mIU/mL Post menopausal 14.2 - 52.3 mIU/mL Performed By: #### C BC, ANEU, ADIFF #### [address] [address] #### GFR, LIPID, CMP #### [address] [address] .GFRon 02-13-2018 GFR Non- 82 ml/min/1.73sqm Normal [facility] ([place] Comment on above: Result Comment: GFR Population mean for , Non- Americans Ages 20-29 = 116 mL/min/1.73 sq.m. Ages 30-39 = 107 mL/min/1.73 sq.m. Ages 40-49 = 99 mL/min/1.73 sq.m. Ages 50-59 = 93 mL/min/1.73 sq.m. Ages 60-69 = 85 mL/min/1.73 sq.m. Ages 70+ = 75 mL/min/1.73 sq.m. Chronic Kidney Disease: Less than 60 mL/min/1.73 square meters End Stage Renal Disease: Less than 15 mL/min/1.73 square meters Performed By: #### C BC, ANEU, ADIFF #### [address] [address] #### GFR, LIPID, CMP #### [address] [address] GFR 100 ml/min/1.73sqm Normal [facility] ([place] Comment on above: Result Comment: GFR Population mean for , Non- Americans Ages 20-29 = 116 mL/min/1.73 sq.m. Ages 30-39 = 107 mL/min/1.73 sq.m. Ages 40-49 = 99 mL/min/1.73 sq.m. Ages 50-59 = 93 mL/min/1.73 sq.m. Ages 60-69 = 85 mL/min/1.73 sq.m. Ages 70+ = 75 mL/min/1.73 sq.m. Chronic Kidney Disease: Less than 60 mL/min/1.73 square meters End Stage Renal Disease: Less than 15 mL/min/1.73 square meters Performed By: #### C BC, ANEU, ADIFF #### [address] [address] #### GFR, LIPID, CMP #### [address] [address] CMPon 02-13-2018 Albumin [Mass/Vol] 4.0 G/dL Normal 3.5-5.0 Counts include 234 beds at the [facility] ([place] Comment on above: Performed By: #### C BC, ANEU, ADIFF #### [address] [address] #### GFR, LIPID, CMP #### [place] [address] Albumin/Globulin [Mass ratio] 1.2 {ratio} Normal 1.1-2.5 [facility] ([place] Comment on above: Performed By: #### C BC, ANEU, ADIFF #### [place] [address] #### GFR, LIPID, CMP #### [place] [address] ALP [Catalytic activity/Vol] 86 U/L Normal 40-135 [facility] ([place] Comment on above: Performed By: #### C BC, ANEU, ADIFF #### [place] [address] #### GFR, LIPID, CMP #### [address] [address] ALT [Catalytic activity/Vol] 45 U/L High 10-35 [facility] ([place] Comment on above: Performed By: #### C BC, ANEU, ADIFF #### [place] [address] #### GFR, LIPID, CMP #### [address] [address] AST [Catalytic activity/Vol] 25 U/L Normal 10-40 [facility] ([place] Comment on above: Performed By: #### C BC, ANEU, ADIFF #### [place] [address] #### GFR, LIPID, CMP #### [place] [id number] Bili Total 0.4 mg/dL Normal 0.2-1.0 [facility] ([place] Comment on above: Performed By: #### C BC, ANEU, ADIFF #### [address] [address] #### GFR, LIPID, CMP #### [address] [address] Calcium [Mass/Vol] 9.4 mg/dL Normal 8.4-10.2 Counts include 234 beds at the [facility] ([place] Comment on above: Performed By: #### C BC, ANEU, ADIFF #### [address] [address] #### GFR, LIPID, CMP #### [address] [address] Chloride [Moles/Vol] 98 mmol/L Normal 98-107 [facility] ([place] Comment on above: Performed By: #### C BC, ANEU, ADIFF #### [address] [address] #### GFR, LIPID, CMP #### [address] [address] CO2 [Moles/Vol] 26 mmol/L Normal 22-29 [facility] ([place] Comment on above: Performed By: #### C BC, ANEU, ADIFF #### [address] [address] #### GFR, LIPID, CMP #### [address] [address] Creatinine [Mass/Vol] 0.74 mg/dL Normal 0.55-1.02 [facility] ([place] Comment on above: Performed By: #### C BC, ANEU, ADIFF #### [address] [address] #### GFR, LIPID, CMP #### [address] [address] Electrolyte Balance 11.0 mEq/L Normal [facility] ([place]) Comment on above: Performed By: #### C BC, ANEU, ADIFF #### [address] [address] #### GFR, LIPID, CMP #### [address] [address] Globulin (S) [Mass/Vol] 3.2 G/dL Normal [facility] ([place] Comment on above: Performed By: #### C BC, ANEU, ADIFF #### [address] [address] #### GFR, LIPID, CMP #### [address] [address] Glucose [Mass/Vol] 100 mg/dL Normal 70-105 Counts include 234 beds at the [facility] ([place]) Comment on above: Performed By: #### C BC, ANEU, ADIFF #### [address] [address] #### GFR, LIPID, CMP #### [address] [address] Potassium [Moles/Vol] 4.3 mmol/L Normal 3.5-5.1 [facility] ([place] Comment on above: Performed By: #### C BC, ANEU, ADIFF #### [address] [address] #### GFR, LIPID, CMP #### [address] [address] Protein [Mass/Vol] 7.2 G/dL Normal 6.4-8.2 Counts include 234 beds at the [facility] ([place] Comment on above: Performed By: #### C BC, ANEU, ADIFF #### [address] [address] #### GFR, LIPID, CMP #### [address] [address] Sodium [Moles/Vol] 135 mmol/L Low 136-145 Counts include 234 beds at the [facility] ([place] Comment on above: Performed By: #### C BC, ANEU, ADIFF #### [address] [address] #### GFR, LIPID, CMP #### [address] [address] Urea nitrogen [Mass/Vol] 11 mg/dL Normal 7-18 [facility] ([place]) Comment on above: Performed By: #### C BC, ANEU, ADIFF #### [address] [address] #### GFR, LIPID, CMP #### [place] [address] Urea nitrogen/Creatinine [Mass ratio] 15 ratio Normal 7-27 Formerly [facility]) Comment on above: Performed By: #### C BC, ANEU, ADIFF #### [address] [address] #### GFR, LIPID, CMP #### [place] [address] 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 Pathology Reports Accession: Collected Date/Time: Received Date/Time: Pathologist: [id number] 01/19/2018 10:44 EST 01/19/2018 18:00 MD MIKE MOON [employer] Cytology Report SPECIMEN: Specimen Description: Liquid Prep w/ HPV Specimen: Cervical/Endocervical Screening or Diagnostic: Screening RELEVANT HISTORY: LMP: not given Post Menopausal: Yes [id number] SPECIMEN ADEQUACY: Specimen processed and examined, but unsatisfactory for evaluation of epithelial abnormality because of INTERPRETATION/RESULTS : UNSATISFACTORY SPECIMEN DUE TO OBSCURING BACTERIA ADJUNCTIVE TESTING: COMMENT: HPV TESTING CANCELLED DUE TO UNSATISFACTORY SPECIMEN, OBSCURING BACTERIA Electronically Signed by Pathology report verified by [facility] Screened by: [facility] Electronically signed by MIKE MATUTE MD Sign-Out Date: 01/26/2018 08:50 Performing Lab: [address] Disclaimer The Pap test is a screening test for cervical cancer. As evidenced by published data, it is subject to both inherent false negative and false positive results. Your patient's results should be interpreted in context with pertinent clinical history including gynecological examination. Normal [facility] ([place] Comment on above: Performed By: #### C BC, ANEU, ADIFF #### [address] [address] #### GFR, LIPID, CMP #### [place] [address] HEPACon 01-20-2018 Hep A IgM Ab Negative Normal Negative [facility] ([place] Comment on above: Performed By: #### C BC, ANEU, ADIFF #### [address] [address] #### GFR, LIPID, CMP #### [address] [address] Hep A IgM Ab Int No serological evidence of a current Hepatitis A infection. Normal [facility] ([place] Comment on above: Performed By: #### C BC, ANEU, ADIFF #### [address] [address] #### GFR, LIPID, CMP #### [place] [id number] Hep B Core IgM Ab Negative Normal Negative [facility] ([place] Comment on above: Result Comment: No s erological evidence of ACUTE Hepatitis B infection. Performed By: #### C BC, ANEU, ADIFF #### [address] [address] #### GFR, LIPID, CMP #### [place] [id number] Hep B Surf Ag Negative Normal Negative [facility] ([place] Comment on above: Performed By: #### C BC, ANEU, ADIFF #### [address] [address] #### GFR, LIPID, CMP #### [place] [id number] Hep C Ab Negative Normal Negative [facility] ([place] Comment on above: Performed By: #### C BC, ANEU, ADIFF #### [address] [address] #### GFR, LIPID, CMP #### [address] [address] Hep C Ab Int No serological evidence of Hepatitis C infection, although levels of anti-HCV may be undetectable in early infection. [facility] ([place]) Comment on above: Performed By: #### C BC, ANEU, ADIFF #### [address] [address] #### GFR, LIPID, CMP #### [place] [address] VAGDNAon 01-20-2018 VAGDNA . MICRO - Microbiology PROCEDURE: Affirm Pathogens DNA Direct Probe [*1] SOURCE: Vaginal Fluid BODY SITE: Vagina COLLECTED DATE/TIME: 01/19/2018 10:44 EST RECEIVED DATE/TIME: 01/19/2018 20:55 EST START DATE/TIME: 01/19/2018 20:55 EST FREE TEXT SOURCE: FINAL REPORTS Final Report [] Verified Date/Time/Personnel: 01/20/2018 13:13 EST Trichomonas vaginalis DNA Probe Negative Belkis species DNA Probe Negative Final Report [] Verified Date/Time/Personnel: 01/20/2018 13:03 EST Gardnerella vaginalis DNA Probe Positive Performing Locations *1: This test was performed at: [address], [address] [place] [address] ([place] Comment on above: Performed By: #### C BC, ANEU, ADIFF #### [place] [address] #### GFR, LIPID, CMP #### [place] [address] .Auto Diffon 01-18-2018 Ammonia (P) [Mass/Vol] 1.70 10 3/mcL High 0.15-1.00 [facility] ([place] Comment on above: Performed By: #### C BC, ANEU, ADIFF #### [place] [address] #### GFR, LIPID, CMP #### [place] [address] Basophils (Bld) [#/Vol] 0.10 10 3/mcL Normal 0.00-0.19 [facility] ([place] Comment on above: Performed By: #### C BC, ANEU, ADIFF #### [place] [address] #### GFR, LIPID, CMP #### [place] [address] Basophils/100 WBC (Bld) 0.5 % Normal 0.0-2.5 [facility] ([place] Comment on above: Performed By: #### C BC, ANEU, ADIFF #### [address] [address] #### GFR, LIPID, CMP #### [address] [address] Eosinophils (Bld) [#/Vol] 0.20 10 3/mcL Normal 0.00-0.40 [facility] ([place] Comment on above: Performed By: #### C BC, ANEU, ADIFF #### [address] [address] #### GFR, LIPID, CMP #### [address] [address] Eosinophils/100 WBC (Bld) 1.1 % Normal 0.0-7.0 [facility] ([place] Comment on above: Performed By: #### C BC, ANEU, ADIFF #### [address] [address] #### GFR, LIPID, CMP #### [address] [address] Lymphocytes (Bld) [#/Vol] 3.40 10 3/mcL Normal 0.77-3.85 [facility] ([place] Comment on above: Performed By: #### C BC, ANEU, ADIFF #### [address] [address] #### GFR, LIPID, CMP #### [address] [address] Lymphocytes/100 WBC (Bld) 24.1 % Normal 10.0-50.0 [facility] ([place] Comment on above: Performed By: #### C BC, ANEU, ADIFF #### [address] [address] #### GFR, LIPID, CMP #### [address] [address] Monocytes/100 WBC (Bld) 11.6 % Normal 1.7-13.0 [facility] ([place] Comment on above: Performed By: #### C BC, ANEU, ADIFF #### [address] [address] #### GFR, LIPID, CMP #### [address] [address] Neutrophils/100 WBC (Bld) 62.7 % Normal 37.0-80.0 [facility] ([place] Comment on above: Performed By: #### C BC, ANEU, ADIFF #### [address] [address] #### GFR, LIPID, CMP #### [address] [address] .GFRon 01-18-2018 GFR 112 ml/min/1.73sqm Normal [facility] ([place] Comment on above: Result Comment: GFR Population mean for , Non- Americans Ages 20-29 = 116 mL/min/1.73 sq.m. Ages 30-39 = 107 mL/min/1.73 sq.m. Ages 40-49 = 99 mL/min/1.73 sq.m. Ages 50-59 = 93 mL/min/1.73 sq.m. Ages 60-69 = 85 mL/min/1.73 sq.m. Ages 70+ = 75 mL/min/1.73 sq.m. Chronic Kidney Disease: Less than 60 mL/min/1.73 square meters End Stage Renal Disease: Less than 15 mL/min/1.73 square meters Performed By: #### C BC, ANEU, ADIFF #### [address] [address] #### GFR, LIPID, CMP #### [address] [address] GFR Non- 92 ml/min/1.73sqm Normal [facility] ([place] Comment on above: Result Comment: GFR Population mean for , Non- Americans Ages 20-29 = 116 mL/min/1.73 sq.m. Ages 30-39 = 107 mL/min/1.73 sq.m. Ages 40-49 = 99 mL/min/1.73 sq.m. Ages 50-59 = 93 mL/min/1.73 sq.m. Ages 60-69 = 85 mL/min/1.73 sq.m. Ages 70+ = 75 mL/min/1.73 sq.m. Chronic Kidney Disease: Less than 60 mL/min/1.73 square meters End Stage Renal Disease: Less than 15 mL/min/1.73 square meters Performed By: #### C BC ANEU, ADIFF #### [place] [address] #### GFR, LIPID, CMP #### [address] [address] .NEUABSon 01-18-2018 Neutrophils (Bld) [#/Vol] 8.90 10 3/mcL High 2.85-6.16 [facility] ([place] Comment on above: Performed By: #### C BC ANEU, ADIFF #### [place] [address] #### GFR, LIPID, CMP #### [place] [address] CBCon 01-18-2018 Erythrocyte distribution width (RBC) [Ratio] 13.4 % Normal 11.5-14.5 [facility] ([place] Comment on above: Performed By: #### C BC ANEU, ADIFF #### [place] [address] #### GFR, LIPID, CMP #### [place] [address] Hematocrit (Bld) [Volume fraction] 44.8 % Normal 37.0-47.0 [facility] ([place] Comment on above: Performed By: #### C BC ANEU, ADIFF #### [place] [address] #### GFR, LIPID, CMP #### [place] [address] Hemoglobin (Bld) [Mass/Vol] 14.4 G/dL Normal 12.0-16.0 [facility] ([place] Comment on above: Performed By: #### C BC, ANEU, ADIFF #### [address] [address] #### GFR, LIPID, CMP #### [address] [address] MCH (RBC) [Entitic mass] 30.5 pg Normal 27.0-31.2 [facility] ([place]) Comment on above: Performed By: #### C BC, ANEU, ADIFF #### [place] [address] #### GFR, LIPID, CMP #### [address] [address] MCHC (RBC) [Mass/Vol] 32.2 G/dL Low 33.0-37.0 [facility] ([place]) Comment on above: Performed By: #### C BC, ANEU, ADIFF #### [place] [address] #### GFR, LIPID, CMP #### [address] [address] MCV (RBC) [Entitic vol] 94.9 fL High 80.0-94.0 [facility] ([place] Comment on above: Performed By: #### C BC, ANEU, ADIFF #### [place] [address] #### GFR, LIPID, CMP #### [address] [address] Platelet mean volume (Bld) [Entitic vol] 7.5 fL Normal 7.4-10.4 [facility] ([place] Comment on above: Performed By: #### C BC, ANEU, ADIFF #### [place] [address] #### GFR, LIPID, CMP #### [address] [address] Platelets (Bld) [#/Vol] 513 10 3/mcL High 130-400 [facility] ([place] Comment on above: Performed By: #### C BC, ANEU, ADIFF #### [place] [address] #### GFR, LIPID, CMP #### [address] [address] RBC (Bld) [#/Vol] 4.72 10 6/mcL Normal 4.20-5.40 [facility] ([place] Comment on above: Performed By: #### C BC, ANEU, ADIFF #### [place] [address] #### GFR, LIPID, CMP #### [address] [address] WBC (Bld) [#/Vol] 14.30 10 3/mcL High 4.60-10.80 [facility] ([place]) Comment on above: Performed By: #### C BC, ANEU, ADIFF #### [place] [address] #### GFR, LIPID, CMP #### [address] [address] CMPon 01-18-2018 Albumin [Mass/Vol] 3.9 G/dL Normal 3.5-5.0 Counts include 234 beds at the [facility] ([place]) Comment on above: Performed By: #### C BC, ANEU, ADIFF #### [place] [address] #### GFR, LIPID, CMP #### [place] [address] Albumin/Globulin [Mass ratio] 1.3 {ratio} Normal 1.1-2.5 [facility]ly [facility] ([place]) Comment on above: Performed By: #### C BC, ANEU, ADIFF #### [place] [address] #### GFR, LIPID, CMP #### [address] [address] ALP [Catalytic activity/Vol] 75 U/L Normal 40-135 [facility] ([place] Comment on above: Performed By: #### C BC, ANEU, ADIFF #### [address] [address] #### GFR, LIPID, CMP #### [address] [address] ALT [Catalytic activity/Vol] 86 U/L High 10-35 [facility] ([place] Comment on above: Performed By: #### C BC, ANEU, ADIFF #### [address] [address] #### GFR, LIPID, CMP #### [address] [address] AST [Catalytic activity/Vol] 54 U/L High 10-40 [facility] ([place]) Comment on above: Performed By: #### C BC, ANEU, ADIFF #### [address] [address] #### GFR, LIPID, CMP #### [address] [address] Bili Total 0.4 mg/dL Normal 0.2-1.0 [facility] ([place]) Comment on above: Performed By: #### C BC, ANEU, ADIFF #### [address] [address] #### GFR, LIPID, CMP #### [address] [address] Calcium [Mass/Vol] 9.6 mg/dL Normal 8.4-10.2 Counts include 234 beds at the [facility] ([place] Comment on above: Performed By: #### C BC, ANEU, ADIFF #### [address] [address] #### GFR, LIPID, CMP #### [address] [address] Chloride [Moles/Vol] 99 mmol/L Normal 98-107 [facility] ([place]) Comment on above: Performed By: #### C BC, ANEU, ADIFF #### [address] [address] #### GFR, LIPID, CMP #### [address] [address] CO2 [Moles/Vol] 27 mmol/L Normal 22-29 [facility] ([place] Comment on above: Performed By: #### C BC, ANEU, ADIFF #### [address] [address] #### GFR, LIPID, CMP #### [address] [address] Creatinine [Mass/Vol] 0.67 mg/dL Normal 0.55-1.02 [facility] ([place] Comment on above: Performed By: #### C BC, ANEU, ADIFF #### [address] [address] #### GFR, LIPID, CMP #### [address] [address] Electrolyte Balance 12.0 mEq/L Normal [facility] ([place]) Comment on above: Performed By: #### C BC, ANEU, ADIFF #### [address] [address] #### GFR, LIPID, CMP #### [address] [address] Globulin (S) [Mass/Vol] 3.0 G/dL Normal [facility] ([place] Comment on above: Performed By: #### C BC, ANEU, ADIFF #### [address] [address] #### GFR, LIPID, CMP #### [address] [address] Glucose [Mass/Vol] 94 mg/dL Normal 70-105 Counts include 234 beds at the [facility] [place] Comment on above: Performed By: #### C BC, ANEU, ADIFF #### [address] [address] #### GFR, LIPID, CMP #### [address] [address] Potassium [Moles/Vol] 4.4 mmol/L Normal 3.5-5.1 [facility] ([place] Comment on above: Performed By: #### C BC, ANEU, ADIFF #### [address] [address] #### GFR, LIPID, CMP #### [address] [address] Protein [Mass/Vol] 6.9 G/dL Normal 6.4-8.2 Counts include 234 beds at the [facility] ([place] Comment on above: Performed By: #### C BC, ANEU, ADIFF #### [address] [address] #### GFR, LIPID, CMP #### [address] [address] Sodium [Moles/Vol] 138 mmol/L Normal 136-145 Counts include 234 beds at the [facility] ([place] Comment on above: Performed By: #### C BC, ANEU, ADIFF #### [address] [address] #### GFR, LIPID, CMP #### [address] [address] Urea nitrogen [Mass/Vol] 8 mg/dL Normal 7-18 [facility] ([place] Comment on above: Performed By: #### C BC, ANEU, ADIFF #### [address] [address] #### GFR, LIPID, CMP #### [address] [address] Urea nitrogen/Creatinine [Mass ratio] 12 ratio Normal 7-27 [facility] ([place] Comment on above: Performed By: #### C BC, ANEU, ADIFF #### [address] [address] #### GFR, LIPID, CMP #### [address] [address] 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 Pathology Reports Accession: Collected Date/Time: Received Date/Time: Pathologist: [id number] 12/29/2017 11:38 EDT 12/29/2017 18:00 EDT MD CONSUELO LAGUNA Television Maintenance Worker Cytology Report SPECIMEN: Specimen Description: Liquid Prep w/ HPV Specimen: Cervical/Endocervical Screening or Diagnostic: Screening RELEVANT HISTORY: Post Menopausal: Yes [id number] SPECIMEN ADEQUACY: Specimen processed and examined, but unsatisfactory for evaluation of epithelial abnormality because of Scant Cellularity and obscuring bacteria. INTERPRETATION/RESULTS : UNSATISFACTORY SPECIMEN. COMMENT: COMMENT: HPV TESTING CANCELLED DUE TO UNSATISFACTORY SPECIMEN, SCANT CELLULARITY. Electronically Signed by Pathology report verified by [facility] Screened by: DAPHNIE LLAMAS Electronically signed by CONSUELO LAGUNA MD Sign-Out Date: 01/03/2018 15:12 Performing Lab: [address] Disclaimer The Pap test is a screening test for cervical cancer. As evidenced by published data, it is subject to both inherent false negative and false positive results. Your patient's results should be interpreted in context with pertinent clinical history including gynecological examination. Normal [facility] ([place] Comment on above: Performed By: #### C BC, ANEU, ADIFF #### [place] [address] #### GFR, LIPID, CMP #### [place] [address] PROLon 12-29-2017 Prolactin 4.7 ng/mL Normal 2.0-30.0 [facility] ([place] Comment on above: Performed By: #### P ROL, TSH #### [place] [address] TSHon 12-29-2017 TSH Qn 1.68 mcIU/mL Normal 0.36-3.74 [facility] ([place] Comment on above: Performed By: #### P ROL, TSH #### [place] [address] MA MAMMOGRAM DIAGNOSTIC BILA TERAL W/TOMOon 12-28-2017 MA MAMMOGRAM DIAGNOSTIC BILATERAL W/KYAW ORIGINAL FROM: [address] [address] PROCEDURE FOR: BARBARA GanSelena HERNANDEZ [address] [place] [address] Home: PID#: [id number] Exam#: [id number] : 1965 Age: 52 TO: JAYLIN DIEHL [facility] [address] [place], [place] [address] #[id number] BILATERAL DIGITAL DIAGNOSTIC MAMMOGRAM 3D/2D WITH CAD WITH MEDIOLATERAL OBLIQUE CRANIOCAUDAL: 12/28/2017 CLINICAL: NIPPLE DRAINAGE RIGHT BREAST. No prior exams were available for comparison. There are scattered fibroglandular elements in both breasts. Current study was also evaluated with a Computer Aided Detection (CAD) system. No significant masses, calcifications, or other findings are seen in either breast. IMPRESSION: INCOMPLETE: NEEDS ADDITIONAL IMAGING EVALUATION There is no mammographic abnormality seen in the right breast to correspond with the non-bloody discharge from the nipple and the nipple inversion. MRI is recommended for further evaluation. SAKINA TAMAYO MD ab/:12/29/2017 09:54:39 Print Project Manager(s): RT LIBRA(R), [facility] letter sent: Normal-Needs W/U BI-RADS 0 Mammogram BI-RADS: 0 Indeterminate Normal [facility] [place] US PELVIS NON-OB W/TRANSVAGI NALon 12-28-2017 US PELVIS NON-OB W/TRANSVAGINAL ORIGINAL US PELVIS NON-OB TRANSABDOMINAL AND TRANSVAGINAL CLINICAL STATEMENT: The patient states she had not had menstrual bleeding for 6 years and has currently had vaginal bleeding COMPARISON: None FINDINGS: The anteverted uterus is 5.8 x 3.2 x 4.3 cm and has normal echotexture. No myometrial mass is seen. The endometrial double wall thickness is 2 mm. The ovaries are normal in size. The RIGHT ovary measures 2.6 x 1.5 x 1.5 cm. The LEFT ovary measures 1.4 x 1.6 x 2.1 cm. There is positive doppler flow to both ovaries. A small amount of culdesac fluid is considered physiologic. IMPRESSION: Normal uterus and ovaries. Interpreted By: Veronica Dent MD Preliminary Report By: Veronica Dent MD Electronically Signed By: Veronica Dent MD Dictated Date: 12/28/2017 1:26:44 PM Prelim Date: 12/28/2017 1:26:44 PM Sign Date: 12/28/2017 1:29:22 PM Normal [facility] ([place] .Auto Diffon 12-22-2017 Ammonia (P) [Mass/Vol] 1.20 10 3/mcL High 0.15-1.00 [facility] ([place] Comment on above: Performed By: #### C BC, ANEU, ADIFF #### [address] [address] #### GFR, LIPID, CMP #### [address] [address] Basophils (Bld) [#/Vol] 0.10 10 3/mcL Normal 0.00-0.19 [facility] ([place] Comment on above: Performed By: #### C BC, ANEU, ADIFF #### [place] [address] #### GFR, LIPID, CMP #### [address] [address] Basophils/100 WBC (Bld) 0.8 % Normal 0.0-2.5 [facility] ([place] Comment on above: Performed By: #### C BC, ANEU, ADIFF #### [place] [address] #### GFR, LIPID, CMP #### [address] [address] Eosinophils (Bld) [#/Vol] 0.20 10 3/mcL Normal 0.00-0.40 [facility] ([place] Comment on above: Performed By: #### C BC, ANEU, ADIFF #### [place] [address] #### GFR, LIPID, CMP #### [address] [address] Eosinophils/100 WBC (Bld) 1.3 % Normal 0.0-7.0 [facility] ([place] Comment on above: Performed By: #### C BC, ANEU, ADIFF #### [place] [address] #### GFR, LIPID, CMP #### [address] [address] Lymphocytes (Bld) [#/Vol] 1.90 10 3/mcL Normal 0.77-3.85 [facility] ([place]) Comment on above: Performed By: #### C BC, ANEU, ADIFF #### [address] [address] #### GFR, LIPID, CMP #### [address] [address] Lymphocytes/100 WBC (Bld) 14.9 % Normal 10.0-50.0 [facility] ([place]) Comment on above: Performed By: #### C BC, ANEU, ADIFF #### [address] [address] #### GFR, LIPID, CMP #### [address] [address] Monocytes/100 WBC (Bld) 9.1 % Normal 1.7-13.0 [facility] ([place]) Comment on above: Performed By: #### C BC, ANEU, ADIFF #### [address] [address] #### GFR, LIPID, CMP #### [address] [address] Neutrophils/100 WBC (Bld) 73.9 % Normal 37.0-80.0 [facility] ([place]) Comment on above: Performed By: #### C BC, ANEU, ADIFF #### [address] [address] #### GFR, LIPID, CMP #### [address] [address] .GFRon 12-22-2017 GFR Non- 97 ml/min/1.73sqm Normal [facility] ([place]) Comment on above: Result Comment: GFR Population mean for , Non- Americans Ages 20-29 = 116 mL/min/1.73 sq.m. Ages 30-39 = 107 mL/min/1.73 sq.m. Ages 40-49 = 99 mL/min/1.73 sq.m. Ages 50-59 = 93 mL/min/1.73 sq.m. Ages 60-69 = 85 mL/min/1.73 sq.m. Ages 70+ = 75 mL/min/1.73 sq.m. Chronic Kidney Disease: Less than 60 mL/min/1.73 square meters End Stage Renal Disease: Less than 15 mL/min/1.73 square meters Performed By: #### C BC, ANEU, ADIFF #### [address] [address] #### GFR, LIPID, CMP #### [address] [address] GFR 118 ml/min/1.73sqm Normal [facility] ([place] Comment on above: Result Comment: GFR Population mean for , Non- Americans Ages 20-29 = 116 mL/min/1.73 sq.m. Ages 30-39 = 107 mL/min/1.73 sq.m. Ages 40-49 = 99 mL/min/1.73 sq.m. Ages 50-59 = 93 mL/min/1.73 sq.m. Ages 60-69 = 85 mL/min/1.73 sq.m. Ages 70+ = 75 mL/min/1.73 sq.m. Chronic Kidney Disease: Less than 60 mL/min/1.73 square meters End Stage Renal Disease: Less than 15 mL/min/1.73 square meters Performed By: #### C BC, ANEU, ADIFF #### [address] [address] #### GFR, LIPID, CMP #### [address] [address] .NEUABSon 12-22-2017 Neutrophils (Bld) [#/Vol] 9.50 10 3/mcL High 2.85-6.16 [facility] ([place] Comment on above: Performed By: #### C BC, ANEU, ADIFF #### [address] [address] #### GFR, LIPID, CMP #### [address] [address] CBCon 12-22-2017 Erythrocyte distribution width (RBC) [Ratio] 13.4 % Normal 11.5-14.5 [facility] ([place] Comment on above: Performed By: #### C BC, ANEU, ADIFF #### [address] [address] #### GFR, LIPID, CMP #### [place] [address] Hematocrit (Bld) [Volume fraction] 44.9 % Normal 37.0-47.0 [facility] ([place] Comment on above: Performed By: #### C BC, ANEU, ADIFF #### [address] [address] #### GFR, LIPID, CMP #### [place] [address] Hemoglobin (Bld) [Mass/Vol] 14.2 G/dL Normal 12.0-16.0 [facility] ([place] Comment on above: Performed By: #### C BC, ANEU, ADIFF #### [place] [address] #### GFR, LIPID, CMP #### [place] [address] MCH (RBC) [Entitic mass] 30.1 pg Normal 27.0-31.2 [facility] ([place] Comment on above: Performed By: #### C BC, ANEU, ADIFF #### [place] [address] #### GFR, LIPID, CMP #### [place] [address] MCHC (RBC) [Mass/Vol] 31.6 G/dL Low 33.0-37.0 [facility] ([place] Comment on above: Performed By: #### C BC, ANEU, ADIFF #### [place] [address] #### GFR, LIPID, CMP #### [place] [address] MCV (RBC) [Entitic vol] 95.3 fL High 80.0-94.0 [facility] ([place] Comment on above: Performed By: #### C BC, ANEU, ADIFF #### [address] [address] #### GFR, LIPID, CMP #### [address] [address] Platelet mean volume (Bld) [Entitic vol] 7.5 fL Normal 7.4-10.4 [facility] ([place] Comment on above: Performed By: #### C BC, ANEU, ADIFF #### [address] [address] #### GFR, LIPID, CMP #### [address] [address] Platelets (Bld) [#/Vol] 486 10 3/mcL High 130-400 [facility] ([place] Comment on above: Performed By: #### C BC, ANEU, ADIFF #### [place] [address] #### GFR, LIPID, CMP #### [address] [address] RBC (Bld) [#/Vol] 4.71 10 6/mcL Normal 4.20-5.40 [facility] ([place] Comment on above: Performed By: #### C BC, ANEU, ADIFF #### [place] [address] #### GFR, LIPID, CMP #### [address] [address] WBC (Bld) [#/Vol] 12.90 10 3/mcL High 4.60-10.80 [facility] ([place] Comment on above: Performed By: #### C BC, ANEU, ADIFF #### [place] [address] #### GFR, LIPID, CMP #### [address] [address] CMPon 12-22-2017 Albumin [Mass/Vol] 4.1 G/dL Normal 3.5-5.0 Counts include 234 beds at the [facility] ([place] Comment on above: Performed By: #### C BC, ANEU, ADIFF #### [address] [address] #### GFR, LIPID, CMP #### [address] [address] Albumin/Globulin [Mass ratio] 1.2 {ratio} Normal 1.1-2.5 [facility] ([place] Comment on above: Performed By: #### C BC, ANEU, ADIFF #### [address] [address] #### GFR, LIPID, CMP #### [address] [address] ALP [Catalytic activity/Vol] 68 U/L Normal 40-135 [facility] ([place] Comment on above: Performed By: #### C BC, ANEU, ADIFF #### [place] [address] #### GFR, LIPID, CMP #### [address] [address] ALT [Catalytic activity/Vol] 82 U/L High 10-35 [facility] ([place] Comment on above: Performed By: #### C BC, ANEU, ADIFF #### [address] [address] #### GFR, LIPID, CMP #### [address] [address] AST [Catalytic activity/Vol] 94 U/L High 10-40 [facility] ([place]) Comment on above: Performed By: #### C BC, ANEU, ADIFF #### [address] [address] #### GFR, LIPID, CMP #### [address] [address] Bili Total 0.3 mg/dL Normal 0.2-1.0 [facility] ([place] Comment on above: Performed By: #### C BC, ANEU, ADIFF #### [place] [id number] #### GFR, LIPID, CMP #### [address] [address] Calcium [Mass/Vol] 9.4 mg/dL Normal 8.4-10.2 Counts include 234 beds at the [facility] ([place] Comment on above: Performed By: #### C BC, ANEU, ADIFF #### [address] [address] #### GFR, LIPID, CMP #### [address] [address] Chloride [Moles/Vol] 97 mmol/L Low 98-107 [facility] ([place] Comment on above: Performed By: #### C BC, ANEU, ADIFF #### [address] [address] #### GFR, LIPID, CMP #### [address] [address] CO2 [Moles/Vol] 25 mmol/L Normal 22-29 [facility] ([place] Comment on above: Performed By: #### C BC, ANEU, ADIFF #### [address] [address] #### GFR, LIPID, CMP #### [address] [address] Creatinine [Mass/Vol] 0.64 mg/dL Normal 0.55-1.02 [facility] ([place] Comment on above: Performed By: #### C BC, ANEU, ADIFF #### [address] [address] #### GFR, LIPID, CMP #### [address] [address] Electrolyte Balance 14.0 mEq/L Normal [facility] ([place]) Comment on above: Performed By: #### C BC, ANEU, ADIFF #### [address] [address] #### GFR, LIPID, CMP #### [address] [address] Globulin (S) [Mass/Vol] 3.3 G/dL Normal [facility] ([place] Comment on above: Performed By: #### C BC, ANEU, ADIFF #### [address] [address] #### GFR, LIPID, CMP #### [address] [address] Glucose [Mass/Vol] 72 mg/dL Normal 70-105 Counts include 234 beds at the [facility] ([place] Comment on above: Performed By: #### C BC, ANEU, ADIFF #### [address] [address] #### GFR, LIPID, CMP #### [address] [address] Potassium [Moles/Vol] 4.4 mmol/L Normal 3.5-5.1 [facility] ([place] Comment on above: Performed By: #### C BC, ANEU, ADIFF #### [address] [address] #### GFR, LIPID, CMP #### [address] [address] Protein [Mass/Vol] 7.4 G/dL Normal 6.4-8.2 Counts include 234 beds at the [facility] ([place] Comment on above: Performed By: #### C BC, ANEU, ADIFF #### [address] [address] #### GFR, LIPID, CMP #### [address] [address] Sodium [Moles/Vol] 136 mmol/L Normal 136-145 Counts include 234 beds at the [facility] ([place] Comment on above: Performed By: #### C BC, ANEU, ADIFF #### [address] [address] #### GFR, LIPID, CMP #### [address] [address] Urea nitrogen [Mass/Vol] 3 mg/dL Low 7-18 [facility] [place] Comment on above: Performed By: #### C BC, ANEU, ADIFF #### [address] [address] #### GFR, LIPID, CMP #### [address] [address] Urea nitrogen/Creatinine [Mass ratio] 5 ratio Low 7-27 [facility] ([place] Comment on above: Performed By: #### C BC, ANEU, ADIFF #### [address] [address] #### GFR, LIPID, CMP #### [address] [address] LIPIDon 12-22-2017 Cholesterol [Mass/Vol] 234 mg/dL High 0-200 [facility] [place] Comment on above: Result Comment: Chol esterol Reference Interval: Less than 200 Desirable 200-239 Borderline high risk 240 and above High risk Performed By: #### C BC, ANEU, ADIFF #### [address] [address] #### GFR, LIPID, CMP #### [address] [address] Cholesterol in HDL [Mass/Vol] 93 mg/dL High 40-60 [facility] ([place] Comment on above: Performed By: #### C BC, ANEU, ADIFF #### [address] [address] #### GFR, LIPID, CMP #### [address] [address] Cholesterol in LDL [Mass/Vol] 128 mg/dL Normal 0-130 [facility] [place] Comment on above: Performed By: #### C BC, ANEU, ADIFF #### [address] [address] #### GFR, LIPID, CMP #### [address] [address] Triglyceride [Mass/Vol] 67 mg/dL Normal 0-150 [facility] ([place] Comment on above: Result Comment: Trig lyceride Reference Interval: Less than 150 Normal 150-199 Borderline high risk 200-499 High risk 500 or higher Very high risk Performed By: #### C BC, ANEU, ADIFF #### [facility] [address] [place], [place] [address] #### GFR, LIPID, CMP #### [place] [address] [place] [address] CBC W/DIFFon 10-20-2017 BASO ABS 0.10 K/CU MM Normal 0-0.2 [facility] Comment on above: Performed By: #### L 200.75094 ####[facility] [id number] [place] [address]Hz# [phone] Basophils/100 WBC Auto (Bld) 0.6 % Normal 0-2 [facility] Comment on above: Performed By: #### L 200.30943 ####[facility] [id number] [place] [address]Lt# [phone] EOS ABS 0.20 K/CU MM Normal 0-0.5 [facility] Comment on above: Performed By: #### L 200.95668 ####[address] [address]Dc# [phone] Eosinophils/100 WBC Auto (Bld) 1.2 % Normal 0-5 [facility] Comment on above: Performed By: #### L 200.91917 ####[facility] [id number] [place] [address]Ix# [phone] Erythrocyte distribution width Auto Ratio (RBC) 13.7 % Normal 11-14.5 [facility] Comment on above: Performed By: #### L 200.02420 ####[facility] [id number] [place] [address]Ks# [phone] Hematocrit Auto Volume Fraction (Bld) 40.7 % Normal 35.0-47.0 [facility] Comment on above: Performed By: #### L 200.59876 ####[facility] [id number] [place] [address]Ga# [phone] Hemoglobin mass conc (Bld) 13.0 g/dL Normal 11.5-15.5 [facility] Comment on above: Performed By: #### L 200.57384 ####[facility] [id number] [place], [place] [address]Ph# [phone] IMMATR GRAN ABS 0.10 K/CU MM Normal Less than 2 [facility] Comment on above: Performed By: #### L 200.69807 ####[facility] [id number] [place], [place] [address]Ph# [phone] IMMATURE GRAN % 0.5 % Normal Less than 2 [facility] Comment on above: Performed By: #### L 200.75651 ####[facility] [id number] [place], [place] [address]Ph# [phone] Lymphocytes Auto #/vol (Bld) 2.80 K/CU MM Normal 0.9-4.4 [facility] Comment on above: Performed By: #### L 200.57376 ####[place] [address]Ph# [phone] Lymphocytes/100 WBC Auto (Bld) 22.0 % Normal 20-40 [facility] Comment on above: Performed By: #### L 200.54848 ####[facility] [id number] [place], [place] [address]Ph# [phone] MCHC Auto mass conc (RBC) 31.9 g/dL Low 32.0-36.0 [facility] Comment on above: Performed By: #### L 200.78612 ####[facility] [id number] [place], [place] [address]Ph# [phone] MCV Auto Entitic volume (RBC) 94.9 fL Normal 80.0-99.0 [facility] Comment on above: Performed By: #### L 200.70387 ####[facility] [id number] [place], [place] [address]Ph# [phone] MONO ABS 1.40 K/CU MM High 0.1-1.1 [facility] Comment on above: Performed By: #### L 200.72517 ####[facility] [id number] [place], [place] [address]Gn# [phone] Monocytes/100 WBC Auto (Bld) 11.0 % High 2-10 [facility] Comment on above: Performed By: #### L 200.20892 ####[facility] [id number] [place], [place] [address]Ym# [phone] NEUTROPHIL ABS 8.20 K/CU MM Normal 2.0-8.3 [facility] Comment on above: Performed By: #### L 200.57353 ####[facility] [id number] [place], [place] [address]Ph# [phone] Neutrophils/100 WBC Auto (Bld) 64.7 % Normal 45-75 [facility] Comment on above: Performed By: #### L 200.26161 ####[facility] [id number] [place], [place] [address]Ph# [phone] Nucleated RBC/100 WBC Ratio (Bld) 0.0 % Normal Less than 1 [facility] Comment on above: Performed By: #### L 200.52473 ####[facility] [id number] [place], [place] [address]Ph# [phone] Platelet mean volume Auto Entitic volume (Bld) 9.2 fL Low 9.4-12.4 [facility] Comment on above: Performed By: #### L 200.53565 ####[facility] [id number] [place] [address] [address]Qm# [phone] Platelets Auto #/vol (Bld) 428 K/CU MM Normal 150-450 [facility] Comment on above: Performed By: #### L 200.78041 ####[facility] [id number] [place] [address]Pt# [phone] RBC Auto #/vol (Bld) 4.29 M/CU MM Normal 3.90-5.30 [facility] [place] Comment on above: Performed By: #### L 200.73090 ####[facility] [id number] [place], [place] [address]Sl# [phone] WBC Auto #/vol (Bld) 12.6 K/CU MM High 4.5-11.0 Me [facility] Comment on above: Performed By: #### L 200.84156 ####[facility] [id number] [place], [place] [address]Zr# [phone] LIPIDon 10-20-2017 Cholesterol in HDL mass conc 71 mg/dL Normal GREATER [place] 40 [facility] Comment on above: Result Comment: Clover ents receiving Metamizole prior to venipuncture, mayhave falsely depressed results. Performed By: #### L 500.57435, L500.27793 ####[facility] [id number] [place], [place] [address]Mk# [phone] Cholesterol in LDL mass conc 152 MG/DL High 0-129 [facility] Comment on above: Result Comment: ___C HOLESTEROL/HDL RATIO RISK___ CHD RISK = Total CHOL LDL HDL (CHOL/HDL) ------Recommended <200 <130 >35 <3.4 Borderline 200-239 130-159 3.4-4.99 ----High >240 >160 >5.0 Performed By: #### L 500.83762, L500.07101 ####[facility] [id number] [place], [place] [address]Zc# [phone] Cholesterol mass conc 243 mg/dL High 0-199 [facility] Comment on above: Performed By: #### L 500.63958, L500.03904 ####[facility] [id number] [place], [place] [address]Cw# [phone] Triglyceride mass conc 96 mg/dL Normal 30-149 [facility] Comment on above: Result Comment: Clover ents receiving either N-Acetylcysteine (NAC) orMetamizole prior to venipuncture, may have falsely depressedresults. Performed By: #### L 500.06332, L500.42192 ####[facility] [id number] [place], [place] [address]Wy# [phone] TSHon 10-20-2017 Thyrotropin Qn 1.420 UIU/ML Normal 0.358-3.740 [facility] Comment on above: Result Comment: 3rd generation ultra sensitive TSH Performed By: #### L 500.04761, L500.28032 ####[facility] [id number] [place], [place] [address]He# [phone] Vital Signs Date Time Vital Sign Value Performing Clinician Facility 07-14-2023 13:02040 Body height 164.5 cm Manjeet Ocasio MD Work Phone: [facility] 07-14-2023 13:02-040 Body mass index (BMI) [Ratio] 15.85 kg/m2 Manjeet Ocasio MD Work Phone: [facility] 07-14-2023 13:02-040 Body temperature 97.39 [degF] Manjeet Ocasio MD Work Phone: [facility] 07-14-2023 13:02-0400 Body weight 42.87 kg Manjeet Ocasio MD Work Phone: [facility] 07-14-2023 13:02-0400 Heart rate 111 /min Manjeet Ocasio MD Work Phone: [facility] 06-27-2023 14:12-0400 Body temperature 97.81 [degF] Paolo Girard MD Work Phone: [facility] 06-27-2023 14:12-0400 Body weight 42.55 kg Paolo Girard MD Work Phone: [facility] 06-27-2023 14:12-0400 Diastolic blood pressure 64 mm[Hg] Paolo Girard MD Work Phone: [facility] 06-27-2023 14:12-0400 Heart rate 96 /min Paolo Girard MD Work Phone: [facility] 06-27-2023 14:12-0400 SaO2% (BldA) [Mass fraction] 97 % Paolo Girard MD Work Phone: [facility] 06-27-2023 14:12-0400 Systolic blood pressure 108 mm[Hg] Paolo Girard MD Work Phone: [facility] 06-05-2023 14:01-0400 Body temperature 97.81 [degF] Annie Whitfield APRN.HOME CARE NURSE Work Phone: [facility] 06-05-2023 14:01-0400 Body weight 44 kg Annie Whitfield APRN.HOME CARE NURSE Work Phone: [facility] 06-05-2023 14:01-0400 Diastolic blood pressure 73 mm[Hg] Annie Whitfield APRN.HOME CARE NURSE Work Phone: [facility] 06-05-2023 14:01-0400 Heart rate 90 /min Annie Whitfield APRN.HOME CARE NURSE Work Phone: [facility] 06-05-2023 14:01-0400 Respiratory rate 18 /min Annie Whitfield APRN.HOME CARE NURSE Work Phone: [facility] 06-05-2023 14:01-0400 SaO2% (BldA) [Mass fraction] 95 % Annie Whitfield APRN.HOME CARE NURSE Work Phone: [facility] 06-05-2023 14:01-0400 Systolic blood pressure 126 mm[Hg] Annie Whitfield APRN.HOME CARE NURSE Work Phone: [facility] 12-02-2022 10:08-0400 Body temperature 98.29 [degF] Ramiro Athy PA-C Work Phone: [facility] 12-02-2022 10:08-0400 Body weight 44.63 kg Ramiro Athy PA-C Work Phone: [facility] 12-02-2022 10:08-0400 Diastolic blood pressure 90 mm[Hg] Ramiro Athy PA-C Work Phone: [facility] 12-02-2022 10:08-0400 Heart rate 101 /min Ramiro Athy PA-C Work Phone: [facility] 12-02-2022 10:08-0400 Respiratory rate 18 /min Ramiro Athy PA-C Work Phone: [facility] 12-02-2022 10:08-0400 SaO2% (BldA) [Mass fraction] 97 % Ramiro Athy PA-C Work Phone: [facility] 12-02-2022 10:08-0400 Systolic blood pressure 137 mm[Hg] Ramiro Athy PA-C Work Phone: [facility] 11-22-2022 13:57-0400 Body temperature 98.2 [degF] Annie Whitfield APRN.HOME CARE NURSE Work Phone: [facility] 11-22-2022 13:57-0400 Body weight 44.91 kg Annie Whitfield APRN.HOME CARE NURSE Work Phone: [facility] 11-22-2022 13:57-0400 Diastolic blood pressure 68 mm[Hg] Annie Whitfield APRN.HOME CARE NURSE Work Phone: [facility] 11-22-2022 13:57-0400 Heart rate 96 /min Annie Whitfield [employer].HOME CARE NURSE Work Phone: [facility] 11-22-2022 13:57-0400 Respiratory rate 16 /min Annie Whitfield [employer].HOME CARE NURSE Work Phone: [facility] 11-22-2022 13:57-0400 SaO2% (BldA) [Mass fraction] 99 % Annie Whitfield [employer].HOME CARE NURSE Work Phone: [facility] 11-22-2022 13:57-0400 Systolic blood pressure 120 mm[Hg] Annie Whitfield [employer].HOME CARE NURSE Work Phone: [facility] 04-12-2022 08:14-0500 Body weight 48.08 kg 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: [facility] 04-12-2022 08:14-0500 Diastolic blood pressure 76 mm[Hg] 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: [facility] 04-12-2022 08:14-0500 Heart rate 109 /min 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: [facility] 04-12-2022 08:14-0500 Respiratory rate 18 /min 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: [facility] 04-12-2022 08:14-0500 Systolic blood pressure 124 mm[Hg] 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: [facility] 10-22-2021 08:24-0400 Heart rate 77 /min Paul Martin MD Work Phone: [facility] 10-22-2021 08:24-0400 Respiratory rate 16 /min Paul Martin MD Work Phone: [facility] 10-22-2021 08:24-0400 SaO2% (BldA) [Mass fraction] 99 % Paul Martin MD Work Phone: [facility] 10-05-2021 07:35-0400 Body height 167.6 cm Bonifacio [place] [employer].HOME CARE NURSE Work Phone: [facility] 10-05-2021 07:35-0400 Body weight 49.44 kg Bonifacio [place] [employer].HOME CARE NURSE Work Phone: [facility] 08-13-2021 13:05-0400 Heart rate 96 /min Bonifacio Kesslerfield [employer].HOME CARE NURSE Work Phone: [facility] 08-13-2021 13:05-0400 Respiratory rate 16 /min Bonifacio Kesslerfield [employer].HOME CARE NURSE Work Phone: [facility] 08-13-2021 13:05-0400 SaO2% (BldA) [Mass fraction] 98 % Bonifacio Kesslerfield [employer].HOME CARE NURSE Work Phone: [facility] 08-03-2021 17:24-0400 Body temperature 98.2 [degF] Caleb Recio MD Work Phone: [facility] 08-03-2021 17:24-0400 Body weight 49.62 kg Caleb Recio MD Work Phone: [facility] 08-03-2021 17:24-0400 Diastolic blood pressure 98 mm[Hg] Caleb Recio MD Work Phone: [facility] 08-03-2021 17:24-0400 Heart rate 116 /min Caleb Recio MD Work Phone: [facility] 08-03-2021 17:24-0400 Respiratory rate 18 /min Caleb Recio MD Work Phone: [facility] 08-03-2021 17:24-0400 SaO2% (BldA) [Mass fraction] 97 % Caleb Recio MD Work Phone: [facility] 08-03-2021 17:24-0400 Systolic blood pressure 164 mm[Hg] Caleb Recio MD Work Phone: [facility] NEGATED: Highlighted [id number] 11:46-0400 BMI (Body Mass Index) 17.54 kg/m2 [facility] Work Phone: NEGATED: Highlighted [id number] 11:46-0400 Body weight 47.63 kg [facility] Work Phone: NEGATED: Highlighted [id number] 11:46-0400 Body weight 48 kg [facility] Work Phone: NEGATED: Highlighted [id number] 11:46-0400 Heart rate 2+ [facility] Work Phone: NEGATED: Highlighted [id number] 11:46-0400 Height 165.1 cm [facility] Work Phone: NEGATED: Highlighted [id number] 11:46-0400 Height 165 cm [facility] Work Phone: Encounters Encounter Date Encounter Type Care Provider Facility Start: 11-09-2023 End: 11-09-2023 ambulatory Reny Padilla MA [facility] [place] Start: 11-09-2023 End: 11-09-2023 Patient encounter procedure Reny Padilla MA [facility] [place] Comment on above: Population Health Na vigation Outreach ([facility] ) Start: 10-03-2023 Refill Nely dia APRN.CNP Work Phone: [facility] [place] Comment on above: Med Change Request Start: 08-31-2023 Refill Paolo giron MD Work Phone: [facility] [place] Comment on above: Refill Request Start: 08-10-2023 Telephone encounter Paolo zepeda MD Work Phone: [facility] [place] Comment on above: [facility] ( pt update with [facility]/) Start: 08-05-2023 Telephone encounter Manjeet santillan MD Work Phone: Hematology/Oncology Comment on above: Results Start: 07-14-2023 End: 07-14-2023 ambulatory Manjeet Ocasio MD Work Phone: Hematology/Oncology Comment on above: Thrombocytosis (Prim helen Dx); Night sweats; Unintentional weight loss Start: 07-14-2023 End: 07-14-2023 Patient encounter procedure Manjeet Ocasio MD Work Phone: Hematology/Oncology Start: 07-13-2023 End: 07-13-2023 ambulatory Fahad Vidal PT [facility] Physical Therapy Comment on above: Arthralgia of left t emporomandibular joint (Primary Dx) Start: 06-30-2023 Refill Paolo giron MD Work Phone: [facility] [place] Comment on above: Med Change Request Start: 06-30-2023 Telephone encounter Manjeet santillan MD Work Phone: Hematology/Oncology Comment on above: Future Appointment Start: 06-29-2023 Refill Paolo giron MD Work Phone: [facility] [place] Comment on above: Refill Request Results Start: 06-27-2023 End: 06-27-2023 ambulatory PAOLO GIRARD Facility:[facility] Start: 06-27-2023 End: 06-27-2023 Patient encounter procedure Paolo Girard MD Work Phone: [facility] [place] Comment on above: Generalized anxiety disorder (Primary Dx); Post laminectomy syndrome; Hyperlipidemia, unspecified hyperlipidemia type; Post-traumatic stress disorder; Mild episode of recurrent major depressive disorder (HCC); Pulmonary emphysema, unspecified emphysema type (HCC); Arthralgia of left temporomandibular joint; Rash and nonspecific skin eruption Start: 06-05-2023 End: 06-05-2023 ambulatory PAOLO GIRARD Facility:[facility] Start: 06-05-2023 End: 06-05-2023 Patient encounter procedure Annie Whitfield APRN.CNP Work Phone: [facility] Comment on above: Congestion of both e ars (Primary Dx) Start: 05-26-2023 ambulatory [facility] Hendricks [facility] [place] Comment on above: Population Health Na vigation Outreach ([employer] care gaps) Start: 01-26-2023 ambulatory Nely Older [employer] .HOME CARE NURSE Work Phone: [facility] [place] Comment on above: CT scan chest result s Start: 01-26-2023 E-mail encounter elke gan caregiver 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: [facility] Start: 01-19-2023 ambulatory Jacey Maloney [facility] [place] Comment on above: Population Health Na vigation Outreach (/[facility] care gaps) Start: 01-18-2023 Telephone encounter Maverick robins DO Work Phone: Hematology/Oncology Comment on above: Appointment Start: 01-14-2023 Telephone encounter Paolo zepeda MD Work Phone: [facility] [place] Comment on above: Patient Update Start: 01-12-2023 Telephone encounter 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: [facility] [place] Comment on above: Results Start: 01-11-2023 Telephone encounter Paolo zepeda MD Work Phone: [facility] [place] Comment on above: Patient Request Start: 01-10-2023 End: 01-10-2023 Subsequent hospital visit by physician Xr [facility] [place] Work Phone: Radiology Comment on above: Night sweats [R61] Start: 01-10-2023 End: 01-10-2023 ambulatory NELY Gan GANGA Facility:[facility] Start: 01-05-2023 Refill Nely Older [employer] .HOME CARE NURSE Work Phone: [facility] [place] Comment on above: Med Change Request Start: 01-03-2023 Telephone encounter Paolo zepeda MD Work Phone: [facility] [place] Comment on above: Patient Update Start: 12-23-2022 Telephone encounter Paolo zepeda MD Work Phone: [facility] [place] Comment on above: Pt update on illness Start: 12-20-2022 End: 12-20-2022 ambulatory PAOLO GIRARD Facility:[facility] Start: 12-02-2022 End: 12-02-2022 Patient encounter procedure Ramiro Ayala PA-C Work Phone: [facility] Comment on above: Chronic ear pain, bi lateral (Primary Dx); Hip pain, chronic, right Refill Request Start: 12-02-2022 End: 12-02-2022 ambulatory PAOLO GIRARD Facility:[facility] Start: 12-01-2022 Telephone encounter Paolo zepeda MD Work Phone: [facility] [place] Start: 11-22-2022 End: 11-22-2022 ambulatory PAOLO GIRARD Facility:[facility] Start: 11-22-2022 End: 11-22-2022 Patient encounter procedure Annie Whitfield RISHI Work Phone: [facility] Comment on above: URI, acute (Primary Dx); Acute otitis media, left Start: 11-08-2022 Telephone encounter Paolo zepeda MD Work Phone: [facility] [place] Comment on above: Orders Start: 10-12-2022 ambulatory Darshana Small MA [facility] Start: 10-12-2022 Follow-up encounter Darshana perez [facility] [place] Comment on above: Population Health Na vigation Outreach ([facility] CARE GAPS/MWE, Follow up visit, CRS/) Start: 09-15-2022 Refill Paolo giron MD Work Phone: [facility] [place] Comment on above: Refill Request Start: 08-10-2022 ambulatory Trish Stringer RN [facility] [place] [facility] [place] Comment on above: KIKA GUY RN ( Medication Adherence review per request of payer) Start: 08-10-2022 Telephone encounter Paolo zepeda MD Work Phone: [facility] [place] Comment on above: Patient Update Start: 05-13-2022 Refill Paolo giron MD Work Phone: [facility] [place] Comment on above: Med Change Request Start: 04-23-2022 End: 04-23-2022 Subsequent hospital visit by physician Brenna [facility] [place] Work Phone: Radiology Comment on above: Wrist injury, left, initial encounter [S69.92XA] Start: 04-12-2022 End: 04-12-2022 Patient encounter procedure 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: [facility] [place] Comment on above: Low back pain, unspe cified back pain laterality, unspecified chronicity, unspecified whether sciatica present (Primary Dx); Post laminectomy syndrome; Hyperlipidemia, unspecified hyperlipidemia type; Generalized anxiety disorder; Pulmonary emphysema, unspecified emphysema type (HCC); Fibromyalgia; Impaired glucose metabolism Start: 03-15-2022 ambulatory Paul Martin MD Work Phone: [facility] Comment on above: My neck Start: 01-11-2022 Telephone encounter Paolo zepeda MD Work Phone: [facility] [place] Comment on above: Appointment; Patient Update Start: 01-06-2022 ambulatory Paolo giron MD Work Phone: [facility] [place] Start: 12-23-2021 Telephone encounter Paolo zepeda MD Work Phone: [facility] [place] Comment on above: Patient Update Start: 11-19-2021 ambulatory Paul Martin MD Work Phone: [facility] Comment on above: Pain Start: 11-17-2021 Refill Nely Older [employer] .HOME CARE NURSE Work Phone: [facility] [place] Comment on above: Refill Request Start: 10-27-2021 Orders Only Paul Martin MD Work Phone: [facility] Comment on above: Coccyodynia (Primary Dx) Start: 10-22-2021 Telephone encounter Paul Martin MD Work Phone: [facility] Comment on above: Patient Update Start: 10-22-2021 End: 10-22-2021 Patient encounter procedure Paul Martin MD Work Phone: [facility] Comment on above: Coccydynia (Primary Dx); Post laminectomy syndrome; Generalized anxiety disorder; Post-traumatic stress disorder; RSD (reflex sympathetic dystrophy); Fibromyalgia Start: 10-07-2021 ambulatory Bonifacio nation [employer].HOME CARE NURSE Work Phone: [facility] [place] Comment on above: Injection Start: 10-05-2021 End: 10-05-[address] [facility] Bonifacio Christie [employer].HOME CARE NURSE Work Phone: [facility] [place] Comment on above: Post laminectomy syn drome; Generalized anxiety disorder; Post-traumatic stress disorder; RSD (reflex sympathetic dystrophy); Fibromyalgia Start: 10-01-2021 ambulatory Bonifacio nation [employer].HOME CARE NURSE Work Phone: [facility] Comment on above: Sorry yes it's 135 a m and I'm in alot of pain Start: 09-24-2021 ambulatory Bonifacio nation [employer].HOME CARE NURSE Work Phone: [facility] Comment on above: Phone call Start: 09-22-2021 End: 09-22-2021 ambulatory Stefania Mahmood PA-C Work Phone: [facility] Comment on above: Cervical spondylosis without myelopathy (Primary Dx) My call today Start: 09-22-2021 Telephone encounter Stefania Campos PA-C Work Phone: [facility] Comment on above: Future Appointment Start: 09-22-2021 End: 09-22-2021 Telemedicine consultation with patient Stefania Mahmood PA-C Work Phone: [facility] Start: 09-16-2021 Telephone encounter Paul Martin MD Work Phone: [facility] Comment on above: Medical Health Researcher - O ther Start: 08-21-2021 ambulatory Bonifacio nation [employer].HOME CARE NURSE Work Phone: [facility] Comment on above: Phone call Start: 08-20-2021 ambulatory Bonifacio nation [employer].HOME CARE NURSE Work Phone: [facility] Comment on above: Injection Start: 08-13-2021 End: 08-13-2021 Orders Only Paul Martin MD Work Phone: [facility] Comment on above: Cervical spondylosis without myelopathy (Primary Dx) Other chronic back p ain (Primary Dx); Post laminectomy syndrome; Cervical spondylosis without myelopathy; Chronic left shoulder pain; Tobacco use disorder; Radiculopathy of lumbar region Start: 08-11-2021 Telephone encounter Montse Palma [employer].HOME CARE NURSE Work Phone: [facility] Comment on above: Received Outside Med ical Records ([facility]) Start: 08-05-2021 ambulatory Bonifacio nation [employer].HOME CARE NURSE Work Phone: [facility] Comment on above: Steroid Start: 08-04-2021 ambulatory Bonifacio nation [employer].HOME CARE NURSE Work Phone: [facility] Comment on above: Pain Start: 08-04-2021 Telephone encounter Tania Whitaker MD Work Phone: [facility] [place] 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 Start: 08-03-2021 End: 08-03-2021 Patient encounter procedure Caleb Recio MD Work Phone: [facility] Comment on above: Pain in joint involv ing right pelvic region and thigh (Primary Dx) Start: 08-03-2021 Telephone encounter Bonifacio neely [employer].HOME CARE NURSE Work Phone: [facility] Comment on above: Patient Update Start: 07-16-2021 Telephone encounter Montse Palma [employer].HOME CARE NURSE Work Phone: [facility] [place] Comment on above: Received Outside Med ical Records ([facility]) Start: 07-08-2021 ambulatory Bonifacio nation [employer].HOME CARE NURSE Work Phone: [facility] Comment on above: My MRI Start: 07-02-2021 End: 07-02-2021 Subsequent hospital visit by physician Brenna [facility] Work Phone: Radiology Comment on above: Other chronic back p ain [M54.9, G89.29] Start: 05-26-2021 E-mail encounter fro m caregiver [facility] [place] Start: 05-26-2021 Patient encounter procedure [facility] Orth[facility]ed[facility] Comment on above: Appointment Start: 05-26-2021 Telephone encounter Amrit Acosta darianlu DO Work Phone: Radiology Comment on above: disk request Start: 04-27-2021 End: 04-27-2021 Subsequent hospital visit by physician Brenna [facility] Work Phone: Radiology Comment on above: Chronic left shoulde r pain [M25.512, G89.29] Start: 10-09-2019 End: 10-09-2019 Patient encounter procedure Kashmir Vera MD Work Phone: [facility] Work Phone: Start: 10-19-2017 Patient encounter Francisco Aleman ity:[facility] Procedures Date Procedure Procedure Detail Performing Clinician Start: 06-27-2023 Lipid 1996 panel - S marty or Plasma Paolo Girard MD Work Phone: Start: 01-10-2023 Radiologic exam ches t 2 views Nely Schuler [employer].HOME CARE NURSE Work Phone: Start: 11-22-2022 Iadna respiratry pro be & rev trnscr 3-5 targets Annie Whitfield [employer].HOME CARE NURSE Work Phone: Start: 04-23-2022 Radex wrist complete minimum 3 views Ramiro Ayala PA-C Work Phone: Start: 11-06-2021 Mammography Paul Martin MD Work Phone: Start: 07-02-2021 Radex spine lumbosac ral minimum 4 views Bonifacio Christie [employer].HOME CARE NURSE Work Phone: Start: 04-27-2021 Radex shoulder compl ete minimum 2 views Karishma Barahona PA-C Work Phone: Start: 02-26-2021 Lipid 1996 panel - S marty or Plasma Paolo Girard MD Work Phone: Start: 10-09-2019 End: 10-09-2019 Blood pressure screening not performed - reason not given Kashmir Vera MD Work Phone: Start: 10-09-2019 End: 10-09-2019 BMI documented as below normal parameters - follow-up documented Kashmir Vera MD Work Phone: Start: 10-09-2019 End: 10-09-2019 Documentation of current medications Kashmir Vera MD Work Phone: Start: 10-09-2019 End: 10-09-2019 Pain assessment documented as positive - follow-up documented Kashmir Vera MD Work Phone: Start: 10-09-2019 End: 10-09-2019 Tobacco screening or cessation counseling not performed - unknown reason Kashmir Vera MD Work Phone: NEGATED: Highlighted rowStart: 10-09-2019 End: 10-09-2019 Documentation of current medications Ayse Oliva LPN Plan of Treatment Date Care Activity Detail Author Start: 06-26-2028 Lipid panel Lipid Screening [facility] Start: 03-28-2028 Urine microalbumin profile [facility] Start: 06-26-2026 Diabetes Screening Diabetes Screening [facility] Start: 02-26-2026 Lipid 1996 panel - Serum or Plasma Lipid Screening [facility] Start: 02-26-2026 Lipid panel Lipid Screening [facility] Start: 02-26-2026 LIPID SCREEN LIPID SCREEN [facility] Start: 01-10-2026 Diabetes Screening Diabetes Screening [facility] Start: 06-26-2024 Annual PCP Team Chronic Disease Visit Annual PCP Team Chronic Disease Visit [facility] Start: 06-26-2024 Covid-19 Vaccine (1 - 2023-24 season) Covid-19 Vaccine () [facility] Comment on above: Postponed from 11/12/2022 (Declined at t his time) Start: 02-27-2024 DIABETES SCREEN DIABETES SCREEN [facility] Start: 02-27-2024 Diabetes Screening Diabetes Screening [facility] Start: 01-15-2024 Mammography Mammogram Screening [facility] Start: 01-15-2024 Screening for malignant neoplasm of breast Mammogram Screening [facility] Start: 01-11-2024 Annual PCP Team Chronic Disease Visit Annual PCP Team Chronic Disease Visit [facility] Start: 12-28-2023 End: 12-28-2023 Patient encounter procedure [facility] Comment on above: 6 month follow up Medicare Wellness; 6 month follow up Start: 12-21-2023 Annual PCP Team Chronic Disease Visit Annual PCP Team Chronic Disease Visit [facility] Start: 11-13-2023 Covid-19 Vaccine ( season) Covid-19 Vaccine () [facility] Start: 11-13-2023 Covid-19 Vaccine ( season) Covid-19 Vaccine ( season) [facility] Start: 11-13-2023 Influenza vaccination [facility] Start: 09-11-2023 Influenza vaccination Influenza Vaccine (#1) [facility] Comment on above: Postponed from 11/12/2022 (Declined at t his time) Start: 07-14-2023 End: 07-14-2023 ambulatory 07/14/2023 1:00 PM EDT Visit (SP) Office Hematology/Oncology [address] [place] [address] [place] [address] [place] [address] [employer]/Dx: Thrombocytosis [D75.839]; Night sweats [R61]; Unintentional weight loss [R63.4]/ REFERRING: NELY SCHULER* Hematology/Oncology Comment on above: [employer]/Dx: Thrombocytosis [D75.839]; Night s weats [R61]; Unintentional weight loss [R63.4]/ REFERRING: NELY SCHULER* Start: 07-13-2023 End: 07-13-2023 ambulatory 07/13/2023 9:00 AM EDT OT/PT/Speech Visit [facility] [address] [place] [address] Fahad Vidal, PT Arthralgia of left temporomandibular joint [M26.622] [facility] Comment on above: Arthralgia of left temporomandibular kevin nt [M26.622] Start: 06-27-2023 End: 09-26-2023 Comprehensive metabolic 2000 panel - Serum or Plasma [facility] Work Phone: Comment on above: Expected: 06/27/2023, Expires: Start: 06-27-2023 End: 09-26-2023 LIPID PANEL, NONFASTING [facility] Work Phone: Comment on above: Expected: 06/27/2023, Expires: Start: 04-12-2023 ANNUAL PCP TEAM CHRONIC DISEASE VISIT ANNUAL PCP TEAM CHRONIC DISEASE VISIT [facility] Start: 04-12-2023 COVID-19 VACCINE (#1) COVID-19 VACCINE (#1) [facility] Comment on above: Postponed from 06/07/1966 (Declined at t his time) Start: 04-12-2023 Influenza vaccination LUNG CANCER SCREENING [facility] Comment on above: Postponed from 12/09/2015 (Declined at t his time) Start: 04-12-2023 SPIROMETRY SPIROMETRY [facility] Comment on above: Postponed from 12/09/1983 (Declined at t his time) Start: 04-02-2023 PAP TESTING PAP TESTING [facility] Start: 01-11-2023 ANNUAL PCP TEAM CHRONIC DISEASE VISIT ANNUAL PCP TEAM CHRONIC DISEASE VISIT [facility] Start: 12-07-2022 ANNUAL PCP TEAM CHRONIC DISEASE VISIT ANNUAL PCP TEAM CHRONIC DISEASE VISIT [facility] Start: 11-22-2022 End: 12-06-2022 COVID & INFLUENZA A/B & RSV NAAT, ROUTINE [facility] Work Phone: Comment on above: Expected: 11/22/2022, Expires: 3 Start: 11-12-2022 Covid-19 Vaccine ( season) Covid-19 Vaccine ( season) [facility] Start: 11-12-2022 Influenza vaccination [facility] Start: 11-06-2022 Mammography [facility] Start: 09-10-2022 Influenza vaccination INFLUENZA (#1) [facility] Comment on above: Postponed from 11/12/2021 (Declined at t his time) Start: 04-29-2022 ANNUAL PCP TEAM CHRONIC DISEASE VISIT ANNUAL PCP TEAM CHRONIC DISEASE VISIT [facility] Start: 02-27-2022 COVID-19 VACCINE (#1) COVID-19 VACCINE (#1) [facility] Comment on above: Postponed from 1970 (Declined at t his time) Postponed from 06/07 (Declined at this time) Start: 02-27-2022 COVID-19 VACCINE (1) COVID-19 VACCINE (1) [facility] Comment on above: Postponed from 1970 (Declined at t his time) Start: 02-27-2022 SHINGRIX VACCINE (1 of 2) SHINGRIX VACCINE (1 of 2) [facility] Comment on above: Postponed from 12/09/2015 (Declined at t his time) Start: 02-27-2022 SPIROMETRY SPIROMETRY [facility] Comment on above: Postponed from 12/09/1983 (Declined at t his time) Start: 11-12-2021 Influenza vaccination [facility] Start: 08-03-2021 End: 10-03-2021 DRUG SCREEN, BLOOD [facility] Work Phone: Comment on above: Expected: 08/03/2021, Expires: 2 Start: 10-09-2019 End: 10-09-2019 Appointment Appointment [facility] Work Phone: Start: 03-28-2016 PNEUMOCOCCAL (2 - PCV) PNEUMOCOCCAL (2 - PCV) [facility] Start: 12-09-2015 Influenza vaccination LUNG CANCER SCREENING [facility] Start: 12-09-2015 Screening for malignant neoplasm of lung Lung Cancer Screening [facility] Start: 12-09-2015 SHINGRIX VACCINE (1 of 2) SHINGRIX VACCINE (1 of 2) [facility] Start: 2010 COLOGUARD (FIT-DNA) COLOGUARD (FIT-DNA) [facility] Start: 2010 Colonoscopy COLONOSCOPY [facility] Start: 2010 COLORECTAL CANCER SCREENING COLORECTAL CANCER SCREENING [facility] Start: [address] COLONOGRAPHY [facility] Start: 2010 FECAL OCCULT BLOOD FECAL OCCULT BLOOD [facility] Start: 2010 Screening for malignant neoplasm of colon [facility] Start: 2010 SIGMOIDOSCOPY SIGMOIDOSCOPY [facility] Start: 2005 Mammography MAMMOGRAM [facility] Start: 12-09-1995 Zoledronic acid therapy ALPHA-1 ANTITRYPSIN DEFICIENCY SCREENING [facility] Start: 12-09-1983 ANNUAL PCP TEAM CHRONIC DISEASE VISIT ANNUAL PCP TEAM CHRONIC DISEASE VISIT [facility] Start: 12-09-1983 SPIROMETRY SPIROMETRY [facility] Start: 12-09-1971 PNEUMOCOCCAL (1 - PCV) PNEUMOCOCCAL (1 - PCV) [facility] Start: 06-07-1966 COVID-19 VACCINE (#1) COVID-19 VACCINE (#1) [facility] Start: 1965 HEPATITIS B (1 of 3 - 3-dose series) HEPATITIS B (1 of 3 - 3-dose series) [facility] End: 09-12-2022 Mri spinal canal lumbar w/o & w/contr matrl MRI LUMBAR SPINE WO/W IVCON Radiology Routine Radiculopathy of lumbar region 1 Occurrences starting 08/13/2021 until 09/12/2022 [facility] Work Phone: Comment on above: 1 Occurrences starting 08/13/2021 until 09/12/2022 SARS-CoV-2 (COVID-19 ) RNA [Presence] in Respiratory specimen by MALINA with probe detection COVID NAAT, ROUTINE Microbiology Routine URI, acute 11/22/2022 2:40 PM EDT [facility] Work Phone: End: 02-05-2023 Screening mammography bi 2-view breast inc cad ROSALIA SCREENING Radiology Routine Encounter for screening mammogram for breast cancer 1 Occurrences starting 01/06/2022 until 02/05/2023 [facility] Work Phone: Comment on above: 1 Occurrences starting 01/06/2022 until 02/05/2023 [facility] Immunizations Immunization Date Immunization Notes Care Provider Fa cility 07-16-2021 zoster vaccine recombinant 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: [facility] Work Phone: 12-05-2018 influenza virus vacc ine, unspecified formulation Paolo Girard MD Work Phone: [facility] 03-28-2018 tetanus toxoid, redu philip diphtheria toxoid, and acellular pertussis vaccine, adsorbed [facility] Provider [facility] Work Phone: 03-28-2015 pneumococcal polysaccharide vaccine, 23 valent [facility] Provider [facility] Work Phone: 02-05-2013 influenza virus vacc ine, unspecified formulation [facility] Provider [facility] Work Phone: Payers Date Payer Category Payer Medicaid [facility] MEDICAID [employer] [facility] MEDICAID [id number] 2021-Present [phone] [address] [place] [address] Medicaid [id number] 2021 Medicaid [facility] MEDICAID [employer] [facility] MEDICAID [id number] 2021-Present [phone] [address] [place] [address] Medicaid [id number] 2021 Medicaid [id number] 2016 Medicare [id number] 2011 Medicare [id number] Social History Date Type Detail Facility Start: 10-09-2019 End: 10-09-2019 Assertion Unknown if ever smoked [facility] Work Phone: Start: 02-05-2013 End: 04-12-2022 Tobacco smoking status NHIS Smokes tobacco daily [facility] History of tobacco use Cigarette Smoker [facility] Start: 04-27-2021 End: 05-19-2021 Alcohol intake Ex-drinker (finding) [facility] Start: 02-27-2021 History SDOH Alcohol Comment quit drinking 01/25/18 [facility] Start: 1965 Sex Assigned At Not on file [facility] Start: 05-16-2021 End: 05-26-2021 Exposure to SARS-CoV-2 (event) Unable to assess [facility] Start: 1965 Sex Assigned At Female [facility] Start: 06-22-2021 End: 12-24-2021 Exposure to SARS-CoV-2 (event) Not sure [facility] Start: 02-05-2013 End: 02-19-2020 Cigarettes smoked current (pack per day) - Reported 0.5 [facility] Start: 02-05-2013 End: 04-12-2022 Tobacco use and exposure Smokeless tobacco non-user [facility] Work Phone: Start: 12-04-2021 End: 04-12-2022 History SDOH Social Connections Phone 5 [facility] Start: 12-04-2021 End: 04-12-2022 History SDOH Social Connections Get Together 2 [facility] Start: 12-04-2021 End: 04-12-2022 History SDOH Social Connections Mandaeism 1 [facility] Start: 04-12-2022 History SDOH Alcohol Frequency 3 [facility] Start: 04-12-2022 History SDOH Social Connections Membership 98 [facility] Start: 04-12-2022 Tobacco Comment Down to a couple cigarettes a day [facility] Start: 02-19-2020 End: 04-12-2022 Social connection and isolation panel [facility] Do you belong to any clubs or organizations such as islam groups, unions, fraternal or athletic groups, or school groups? Patient refused [facility] Are you now , , , , never or living with a partner? [facility] How often to you hav e a drink containing alcohol? 2-4 times a month [facility] How many standard dr inks containing alcohol do you have on a typical day? 1 or 2 [facility] How often do you hav e 6 or more drinks on 1 occasion? Never [facility] How hard is it for y ou to pay for the very basics like food, housing, medical care, and heating Hard [facility] (I/We) worried wheashlyn er (my/our) food would run out before (I/we) got money to buy more. Sometimes true [facility] The food that (I/we) bought just didn't last, and (I/we) didn't have money to get more. Often true [facility] In the past 12 month s, was there a time when you were not able to pay the mortgage or rent on time? Yes [facility] At any time in the p ast 12 months, were you homeless or living in [place] [facility] [including now]? No [facility] Start: 07-01-2021 Gender identity Identifies as female gender (finding) [facility] Start: 07-01-2021 Sexual orientation Heterosexual (finding) [facility] Clinical Notes 09-04-2014 to 11-17-2023 Reny Padilla MA - 11/09/2023 3:53 PM EDTTelephone Encounter - Diann Benitez LPN - 10/03/2023 12:21 PM EDTTelephone Encounter - Diann Benitez LPN - 10/03/2023 12:21 PM EDT Note Date & Type Note Facility 11-17-2023 Note HNO ID: [id number] Author: ERIN OCHOA MA Service: ? Author Type: Smudger Type: Progress Notes Filed: 11/17/2023 10:11 Note Text: POPULATION HEALTH NAVIGATION OUTREACH Action/FYI Letter received and sent to be mailed. Navigation Signature: Erin Ochoa MA November 17, 2023 10:11 AM [facility] 11-09-2023 Note HNO ID: [id number] Author: RENY PADILLA MA Service: ? Author Type: Smudger Type: Progress Notes Filed: 11/09/2023 15:53 Note Text: POPULATION HEALTH NAVIGATION OUTREACH Action/FYI INVALID NUMBER NO MYCHART LETTER MAILED MAMMOGRAMS COLONOSCOPY MYCHART ACTIVATION [facility] CLOS[facility] Reason for Outreach Care Gap/HCC or Scheduling Wellness Visits Care Gaps due: Breast Cancer Screening Colorectal Cancer Screening Patient Contacted: Unable or unnecessary to reach patient: Unable to leave message Letter mailed Navigation Signature: Reny Padilla MA November 09, 2023 10:10 AM [facility] 11-09-2023 History of Present illness Narrative POPULATION HEALTH NAVIGATION OUTREACH Action/FYI INVALID NUMBER NO MYCHART LETTER MAILED MAMMOGRAMS COLONOSCOPY MYCHART ACTIVATION HCC CLOSURE Reason for Outreach Care Gap/HCC or Scheduling Wellness Visits Care Gaps due: Breast Cancer Screening Colorectal Cancer Screening Patient Contacted: Unable or unnecessary to reach patient: Unable to leave message Letter mailed Navigation Signature: Reny Padilla MA November 09, 2023 10:10 AM documented in this encounter [facility] 11-09-2023 Note Patient Outreach (NE TNAV) ---- BARBARA HERNANDEZ ([id number]) 1965 F T Date Time Provider Department 11/09/23 RENY PADILLA NETNAV During your visit today, we recorded the following information about you: Reny Padilla MA 11/09/2023 3:53 PM Signed POPULATION HEALTH NAVIGATION OUTREACH Action/FYI INVALID NUMBER NO MYCHART LETTER MAILED MAMMOGRAMS COLONOSCOPY MYCHART ACTIVATION [facility] CLOSURE Reason for Outreach Care Gap/HCC or Scheduling Wellness Visits Care Gaps due: Breast Cancer Screening Colorectal Cancer Screening Patient Contacted: Unable or unnecessary to reach patient: Unable to leave message Letter mailed Navigation Signature: Reny Padilla MA November 09, 2023 10:10 AM Erin Ochoa MA 11/17/2023 10:11 AM Signed POPULATION HEALTH NAVIGATION OUTREACH Action/FYI Letter received and sent to be mailed. Navigation Signature: Erin CHARO Ochoa November 17, 2023 10:11 AM Allergies As of Date: 11/09/2023 Noted Allergy Reaction CORTISONE 08/14/2014 4 - Hives LATEX, NATURAL RUBBER 04/23/2010 2 - Rash PENICILLINS 12/21/2004 4 - Hives IV CONTRAST (IODINE) 09/16/2021 14 - Other: See Comments Comments: Patient reports she has had reactions to contrast on occasion, not consistently, and no specific reaction was noted MELOXICAM 08/13/2021 8 - GI Upset ENTEX (PHENYLEPHRINE-GUAIFENESIN) 01/04/2005 5 - Intolerance NAPROSYN (NAPROXEN) 12/21/2004 2 - Rash Date Reviewed: 07/14/2023 Reviewed by: Shanelle Albert LPN - Fully Assessed Reason for Visit: Population Health Navigation Outreach [3910] Cmt: [facility] Prescriptions as of 11/17/2023 - atorvastatin (LIPITOR) 40 mg tablet TAKE 1 TABLET BY MOUTH ONCE DAILY - albuterol HFA (PROVENTIL HFA, VENTOLIN HFA) 90 mcg/actuation inhaler Inhale 2 Puffs as instructed every 4 hours as needed for wheezing/shortness of breath. Patient requests VENTOLIN please. With spacer please. - FLUoxetine (PROZAC) 40 mg capsule Take 1 capsule by mouth two times a day. - gabapentin (NEURONTIN) 600 mg tablet Take 1 tablet by mouth three times a day for 180 days. - cyclobenzaprine (FLEXERIL) 10 mg tablet Take 1 tablet by mouth three times a day as needed for muscle spasm. - fluticasone (FLONASE) 50 mcg/actuation nasal spray Use 2 Sprays in each nostril once daily. Rinse mouth after use. - metoprolol succinate ER (TOPROL XL) 25 mg 24 hr tablet Take 1 tablet by mouth once daily. - omeprazole (PRILOSEC) 40 mg capsule Take 40 mg by mouth. - acetaminophen (TYLENOL EXTRA STRENGTH) 500 mg tablet Take 2 tablets by mouth every 6 hours as needed for pain. Problem List As Of Date 11/09/2023 Noted Resolved Depression, major [F32.9] 04/23/2010 Emphysema/COPD (HCC) [J43.9] 04/23/2010 Cigarette smoker [F17.210] 05/05/2010 Post-traumatic stress disorder [F43.10] 06/03/2010 Complicated grief [F43.21] 06/23/2011 02/02/2021 Anxiety disorder [F41.9] 06/23/2011 Hip pain [M25.559] 02/07/2013 01/11/2022 Hot flashes [R23.2] 02/28/2013 02/27/2021 RSD (reflex sympathetic dystrophy) [G90.50] 03/28/2013 06/27/2023 Fibromyalgia [M79.7] 03/28/2013 Inflammatory polyarthropathy (HCC) [M06.4] 03/28/2013 01/11/2022 NO SHOW [075369] 09/04/2014 12/10/2015 Nightmares associated with chronic post-traumat*09/21/2017 06/27/2023 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 Patient has been identified by name and date of : Yes Patient phones for refill(s): Requested Prescriptions Pending Prescriptions Disp Refills atorvastatin (LIPITOR) 40 mg tablet [Pharmacy Med Name: ATORVASTATIN 40 MG TABLET] 90 tablet 1 Sig: TAKE 1 TABLET BY MOUTH ONCE DAILY Date of last office visit in primary care: 06/27/2023 Date of next office visit in primary care: 12/28/2023 Please advise. Thank you. Diann Benitez LPN. [facility] 10-03-2023 Miscellaneous Notes Pharmacy is requesting a 90 day supply. Patient has been identified by name and date of : Yes Patient phones for refill(s): Requested Prescriptions Pending Prescriptions Disp Refills atorvastatin (LIPITOR) 40 mg tablet [Pharmacy Med Name: ATORVASTATIN 40 MG TABLET] 90 tablet 1 Sig: TAKE 1 TABLET BY MOUTH ONCE DAILY Date of last office visit in primary care: 06/27/2023 Date of next office visit in primary care: 12/28/2023 Please advise. Thank you. Diann Benitez LPN. documented in this encounter [facility] 08-31-2023 Telephone encounter Note Prescription Refill Information The patient has been identified by name and date of : Yes Caregiver verified no other encounters exist for this prescription request: Yes Caregiver confirmed with patient/requestor that no other refills are due, in the near future, with this provider at this time: Yes The last office visit in the department: 06/27/23 Does the patient have a future office visit with this provider/department: Yes Requested Prescriptions Pending Prescriptions Disp Refills albuterol HFA (PROVENTIL HFA, VENTOLIN HFA) 90 mcg/actuation inhaler 18 g 1 Sig: Inhale 2 Puffs as instructed every 4 hours as needed for wheezing/shortness of breath. Patient requests VENTOLIN please. With spacer please. FLUoxetine (PROZAC) 40 mg capsule 180 capsule 1 Sig: Take 1 capsule by mouth two times a day. Lashell Whitney August 31, 2023 9:23 AM [facility] 08-31-2023 Miscellaneous Notes Prescription Refill Information The patient has been identified by name and date of : Yes Caregiver verified no other encounters exist for this prescription request: Yes Caregiver confirmed with patient/requestor that no other refills are due, in the near future, with this provider at this time: Yes The last office visit in the department: 06/27/23 Does the patient have a future office visit with this provider/department: Yes Requested Prescriptions Pending Prescriptions Disp Refills albuterol HFA (PROVENTIL HFA, VENTOLIN HFA) 90 mcg/actuation inhaler 18 g 1 Sig: Inhale 2 Puffs as instructed every 4 hours as needed for wheezing/shortness of breath. Patient requests VENTOLIN please. With spacer please. FLUoxetine (PROZAC) 40 mg capsule 180 capsule 1 Sig: Take 1 capsule by mouth two times a day. Lashell Whitney August 31, 2023 9:23 AM documented in this encounter [facility] 08-10-2023 Telephone encounter Note Left detailed message with Davina on [employer]. Margot Larios MA [facility] 08-10-2023 Miscellaneous Notes Left detailed message with Davina on [employer]. Margot Larios MA Noted. Advise ER if needed. Davina, protective services case worker with [facility] calling to let you know [facility] went to see pt today and per Davina member was on some kind of drugs and intoxicated. [facility] will no longer see pt and they are pulling out. [facility] will be doing an incident reports on pt. Jacob Rosenbaum LPN documented in this encounter [facility] 08-10-2023 Telephone encounter Note Noted. Advise ER if needed. [facility] 08-10-2023 Telephone encounter Note Davina, protective services case worker with [facility] calling to let you know [facility] went to see pt today and per Davina member was on some kind of drugs and intoxicated. [facility] will no longer see pt and they are pulling out. [facility] will be doing an incident reports on pt. Jacob Rosenbaum LPN [facility] 08-05-[address] Ocasio reviewed labs, all WNL. Increased platelets not due to a hematology issue. No further follow up needed with our office. Domi Jones RN Call to patient, aware of above. Questions answered. She states this is very similar information as discussed at her OV with him on 08/09/23. She thanked this nurse for return call. Domi Jones RN [facility] Work Phone: 08-05-[address] Ocasio reviewed labs, all WNL. Increased platelets not due to a hematology issue. No further follow up needed with our office. Domi Jones RN Call to patient, aware of above. Questions answered. She states this is very similar information as discussed at her OV with him on 08/09/23. She thanked this nurse for return call. Domi Jones RN Patient calling for lab results from 07/13. Patient is upset that she hasn't been informed. documented in this encounter [facility] 08-05-2023 Telephone encounter Note Patient calling for lab results from 07/13. Patient is upset that she hasn't been informed. [facility] Work Phone: 07-14-2023 Note HNO ID: [id number] Author: MANJEET OCASIO MD Service: ? Author Type: Physician Type: Progress Notes Filed: 08/09/2023 09:45 Note Text: HISTORY OF PRESENT ILLNESS: Barbara Hernandez is a 57 year old female referred for evaluation fo thrombocytosis. Labs reviewed, thrombocytosis is chronic and mild CLINICAL IMPRESSION: Thrombocytosis suspect reactive RECOMMENDATION/PLAN: 1. Labs as ordered, follow up as indicated Written and verbal health teaching given to patient, patient verbalizes understanding and agrees with treatment plan. PAST MEDICAL HISTORY Diagnosis Date Anxiety disorder 06/23/2011 Chronic obstructive pulmonary disease (COPD) ([facility]) Complicated grief 06/23/2011 Depression Depression, major 04/23/2010 Emphysema/COPD ([facility]) 04/23/2010 Fibromyalgia 03/28/[address] Bergman Hot flashes 02/28/2013 Inflammatory polyarthropathy ([facility]) 03/28/[address] Bergman Marcia - [place] tear 09/2010 received transfusion Nightmares associated with chronic post-traumatic stress disorder 09/21/2017 Post-traumatic stress disorder 06/03/2010 RSD (reflex sympathetic dystrophy) 03/28/2013 Right upper extremity screening for Type 2 diabetes mellitus without complication ([facility]) 07/16/2016 Thrombocytosis, unspecified 01/23/2013 Traumatic coccydynia 02/27/2021 PAST SURGICAL HISTORY Procedure Laterality Date ESOPHAGOGASTRODUODENOSCOPY TRANSORAL DIAGNOSTIC 10/07/2010 EGD [facility] inpt n /H-pylori negative LAMINOTOMY (HEMILAMINECTOMY), WITH DECOMPRESSION OF NERVE ROOT(S) Right 03/12/2020 L5-S1 discectomy, [facility], Dr. Bety Spicer LIG/TRNSXJ FLP TUBE ABDL/VAG APPR UNI/BI Tubal ligation PAST SURGICAL HISTORY OF 07/24/2018 Complete hysterectomy PAST SURGICAL HISTORY OF Right carpal tunnel FAMILY HISTORY Problem Relation Age of Onset Diabetes Mother Hypertension Mother Cancer Mother Coronary Artery Disease Father myesthenia gravis Heart Father By-pass COPD Brother other (Smoker) Brother Social History Tobacco Use Smoking status: Every Day Packs/day: 1.00 Years: 20.00 Additional pack years: 0.00 Total pack years: 20.00 Types: Cigarettes Smokeless tobacco: Never Tobacco comments: Down to a couple cigarettes a day Vaping Use Vaping Use: Never used Substance Use Topics Alcohol use: Not Currently Comment: quit drinking 01/25/18 Drug use: No ALLERGIES: ALLERGIES Allergen Reactions Cortisone Hives Latex, Natural Rubb* Rash Penicillins Hives Iv Contrast [Iodine] Other: See Comments Patient reports she has had reactions to contrast on occasion, not consistently, and no specific reaction was noted Meloxicam GI Upset Entex [Phenylephrin* Intolerance Naprosyn [Naproxen] Rash CURRENT OUTPATIENT MEDICATIONS: atorvastatin (LIPITOR) 40 mg tablet Take 1 tablet by mouth once daily. albuterol HFA (PROVENTIL HFA, VENTOLIN HFA) 90 mcg/actuation inhaler Inhale 2 Puffs as instructed every 4 hours as needed for wheezing/shortness of breath. Patient requests VENTOLIN please. With spacer please. gabapentin (NEURONTIN) 600 mg tablet Take 1 tablet by mouth three times a day for 180 days. cyclobenzaprine (FLEXERIL) 10 mg tablet Take 1 tablet by mouth three times a day as needed for muscle spasm. fluticasone (FLONASE) 50 mcg/actuation nasal spray Use 2 Sprays in each nostril once daily. Rinse mouth after use. FLUoxetine (PROZAC) 40 mg capsule Take 1 capsule by mouth two times a day. metoprolol succinate ER (TOPROL XL) 25 mg 24 hr tablet Take 1 tablet by mouth once daily. omeprazole (PRILOSEC) 40 mg capsule Take 40 mg by mouth. acetaminophen (TYLENOL EXTRA STRENGTH) 500 mg tablet Take 2 tablets by mouth every 6 hours as needed for pain. REVIEW OF SYSTEMS: GENERAL: No fever, night sweats, weight loss or malaise. All other reviewed and negative other than HPI. PHYSICAL EXAMINATION: VITAL SIGNS: Pulse 111 Temp 97.4 Ht 5' 4.75 (1.65m) Wt 94 lb 8 oz (42.9kg) LMP 08/06/2014 BMI 15.84 kg/(m2). GENERAL APPEARANCE: Well appearing, in no acute distress, alert and oriented x3, well-hydrated, well nourished. I spent a total of 30 minutes on the date of the service which included preparing to see the patient, [id number] patient care, completing clinical documentation, obtaining and/or reviewing separately obtained history, counseling and educating the patient/family/caregiver, ordering medications, tests, or procedures, independently interpreting results (not separately reported), and communicating results to the patient/family/caregiver. Electronically Signed: Manjeet Ocasio MD July 14, 2023 1:22 PM [facility] 07-14-2023 History of Present illness Narrative HISTORY OF PRESENT ILLNESS: Barbara Hernandez is a 57 year old female referred for evaluation fo thrombocytosis. Labs reviewed, thrombocytosis is chronic and mild CLINICAL IMPRESSION: Thrombocytosis suspect reactive RECOMMENDATION/PLAN: 1. Labs as ordered, follow up as indicated Written and verbal health teaching given to patient, patient verbalizes understanding and agrees with treatment plan. PAST MEDICAL HISTORY Diagnosis Date Anxiety disorder 06/23/2011 Chronic obstructive pulmonary disease (COPD) ([facility]) Complicated grief 06/23/2011 Depression Depression, major 04/23/2010 Emphysema/COPD ([facility]) 04/23/2010 Fibromyalgia 03/28/[address] Bergman Hot flashes 02/28/2013 Inflammatory polyarthropathy ([facility]) 03/28/[address] Bergman Marcia - Fre[place] tear 09/2010 received transfusion Nightmares associated with chronic post-traumatic stress disorder 09/21/2017 Post-traumatic stress disorder 06/03/2010 RSD (reflex sympathetic dystrophy) 03/28/2013 Right upper extremity screening for Type 2 diabetes mellitus without complication ([facility]) 07/16/2016 Thrombocytosis, unspecified 01/23/2013 Traumatic coccydynia 02/27/2021 PAST SURGICAL HISTORY Procedure Laterality Date ESOPHAGOGASTRODUODENOSCOPY TRANSORAL DIAGNOSTIC 10/07/2010 EGD [facility] inpt n /H-pylori negative LAMINOTOMY (HEMILAMINECTOMY), WITH DECOMPRESSION OF NERVE ROOT(S) Right 03/12/2020 L5-S1 discectomy, [facility], Dr. Bety Spicer LIG/TRNSXJ FLP TUBE ABDL/VAG APPR UNI/BI Tubal ligation PAST SURGICAL HISTORY OF 07/24/2018 Complete hysterectomy PAST SURGICAL HISTORY OF Right carpal tunnel FAMILY HISTORY Problem Relation Age of Onset Diabetes Mother Hypertension Mother Cancer Mother Coronary Artery Disease Father myesthenia gravis Heart Father By-pass COPD Brother other (Smoker) Brother Social History Tobacco Use Smoking status: Every Day Packs/day: 1.00 Years: 20.00 Additional pack years: 0.00 Total pack years: 20.00 Types: Cigarettes Smokeless tobacco: Never Tobacco comments: Down to a couple cigarettes a day Vaping Use Vaping Use: Never used Substance Use Topics Alcohol use: Not Currently Comment: quit drinking 01/25/18 Drug use: No ALLERGIES: ALLERGIES Allergen Reactions Cortisone Hives Latex, Natural Rubb* Rash Penicillins Hives Iv Contrast [Iodine] Other: See Comments Patient reports she has had reactions to contrast on occasion, not consistently, and no specific reaction was noted Meloxicam GI Upset Entex [Phenylephrin* Intolerance Naprosyn [Naproxen] Rash CURRENT OUTPATIENT MEDICATIONS: atorvastatin (LIPITOR) 40 mg tablet Take 1 tablet by mouth once daily. albuterol HFA (PROVENTIL HFA, VENTOLIN HFA) 90 mcg/actuation inhaler Inhale 2 Puffs as instructed every 4 hours as needed for wheezing/shortness of breath. Patient requests VENTOLIN please. With spacer please. gabapentin (NEURONTIN) 600 mg tablet Take 1 tablet by mouth three times a day for 180 days. cyclobenzaprine (FLEXERIL) 10 mg tablet Take 1 tablet by mouth three times a day as needed for muscle spasm. fluticasone (FLONASE) 50 mcg/actuation nasal spray Use 2 Sprays in each nostril once daily. Rinse mouth after use. FLUoxetine (PROZAC) 40 mg capsule Take 1 capsule by mouth two times a day. metoprolol succinate ER (TOPROL XL) 25 mg 24 hr tablet Take 1 tablet by mouth once daily. omeprazole (PRILOSEC) 40 mg capsule Take 40 mg by mouth. acetaminophen (TYLENOL EXTRA STRENGTH) 500 mg tablet Take 2 tablets by mouth every 6 hours as needed for pain. REVIEW OF SYSTEMS: GENERAL: No fever, night sweats, weight loss or malaise. All other reviewed and negative other than HPI. PHYSICAL EXAMINATION: VITAL SIGNS: Pulse 111 Temp 97.4 Ht 5' 4.75 (1.65m) Wt 94 lb 8 oz (42.9kg) LMP 08/06/2014 BMI 15.84 kg/(m^2). GENERAL APPEARANCE: Well appearing, in no acute distress, alert and oriented x3, well-hydrated, well nourished. I spent a total of 30 minutes on the date of the service which included preparing to see the patient, [id number] patient care, completing clinical documentation, obtaining and/or reviewing separately obtained history, counseling and educating the patient/family/caregiver, ordering medications, tests, or procedures, independently interpreting results (not separately reported), and communicating results to the patient/family/caregiver. Electronically Signed: Manjeet Ocasio MD July 14, 2023 1:22 PM documented in this encounter [facility] 07-14-2023 Nurse Note New pt, discuss recent DX: thrombocytosis, night sweats, unintentional weight loss Shanelle Albert LPN [facility] 07-14-2023 Nurse Note New pt, discuss recent DX: thrombocytosis, night sweats, unintentional weight loss Shanelle Albert LPN documented in this encounter [facility] 07-13-2023 Note HNO ID: [id number] Author: FAHAD VIDAL PT Service: ? Author Type: Physical Therapist Type: Progress Notes Filed: 07/13/2023 10:01 Note Text: Episode Visit Count: 1 Therapist That Will Accept/Oversee The Plan Of Care: Fahad Vidal Start of Care Date: 07/13/23 Onset Date: 07/12/21 Plan of Care Certification Date: 07/13/23 Next Certification Due Date: 09/12/23 Patient Identified by Name and Date of : Yes REHABILITATION AND SPORTS THERAPY PHYSICAL THERAPY EVALUATION PLAN OF CARE: Assessment: Barbara Hernandez presents with chief complaint of L jaw and ear pain that interferes with Comments Eating, talking, showering. She presents with impairments in ADL's, overall function, range of motion, strength, symptom management, and tissue tenderness. Patient did not complete the PROMIS? (Patient Reported Outcome Measures Information System). Prognosis for therapy is Good due to: current objective clinical presentation, within-session changes, good support system/ coping skills . She will benefit from skilled therapy services to meet the goals established for this plan of care as noted below. Goals for Episode of Care: created on 07/13/23 through 09/12/23 Decrease subjective complaints of jaw pain by 50%. Patient to report symptom free with talking and chewing. Decrease tenderness to palpation of craniofacial and intraoral musculature by 50% with no active referral symptoms. Patient to be aware of and compliant with TMJ parafunctional habits to avoid exacerbating symptoms. Patient will demonstrate normal resting position of the jaw to allow for decreased stress on irritable tissue. Planned Interventions, Frequency, and Duration: Current Frequency: 1x/week Duration: 8 weeks Total Number of Visits Planned: 8 Planned Treatment Interventions: Therapeutic exercise (81260), Neuromuscular re-education (53317), Manual therapy (91118), Therapeutic activities (35893), Self-skilled nursing management (01276), Patient/Family/Caregiver Education, Body Mechanics Training PLAN FOR NEXT VISIT: Manual for referring muscles, further assessment of jaw Patient demonstrates good understanding of plan of care and treatment. The above goals and plan of care were discussed and agreed upon by patient/family. SUBJECTIVE: L ear and jaw pain for a few years. Hurts the most after showering and eating. Patient notes she needs to leave appt early, so full exam and subjective was not taken. Functional Limitations: Comments Functional Limitation Comments: Eating, talking, showering Prior Level of Function: Independent without limitations Intake Information: Prescription present Previous Treatment: None Vestibular Neck Symptoms: Yes Ear Symptoms: Yes Description: sharp Rating of current symptoms: 8/10 Location: left ear only Comments: starts in ear and runs down lateral neck, deep Frequency: Constant and increases with activity Duration: all the time Symptoms worsened by: eating, talking, showering Symptoms improved by: nothing Hearing Changes: No recent changes Tinnitus: No recent changes Pain: Pain Pain Level: 8 Pain Location: Jaw Description: Sharp, Aching Frequency: Continuous PROMIS Scales 08/22/2021 Higher is Better Phys Func - Score 27 (severe dysfunction) Phys Func - Percentile 1 Self-Eff Symptom - Score 28 (Very Low) Self-Eff Symptom - Percentile 1 T-scores: mean of general population = 50. 5 points is clinically meaningfully difference Percentiles provide an indication of how the patient's score ranks in relation to the general population. Higher percentile rankings indicate better function/quality of life. 50th percentile is the average of the general population and indicates half of respondents had a worse score. OBJECTIVE MEASURES WITH LEVEL OF FUNCTION: TMJ Observations Bite guard: No Trismus: (unknown) Left TMJ Palpation Tenderness: Intraoral deep masseter, Superficial masseter Myofascial Restricton comments: SCM, upper trap TMJ AROM Crepitus: Present Clicking: Opening left Education: Education Learning/educational needs: Home exercise program, Plan of Care, Changes in Plan of Care, Posture TREATMENT: PT Treatment Interventions: Therapeutic Exercise, Manual Therapy Evaluation Therapeutic Exercise: 1: *SCM stretch 3x30 sec 2: *SCM self release 3: *Masseter self release Skilled Intervention: Patient was educated in proper exercise technique and purpose for exercises. Skilled judgment was used in selection of appropriate interventions. Provided written instruction for home exercise program to facilitate proper performance and compliance. Correct performance of therapeutic exercises was facilitated with verbal, visual, and tactile cuing. Manual Therapy: 1: SCM stripping and TrPr on L 2: Masseter stripping Skilled Intervention: Manual skills to improve joint mobility, ROM, and decrease pain. Utilized anatomy knowl (more content not included)... [facility] 07-13-2023 History of Present illness Narrative Images from the original note were not included. Episode Visit Count: 1 Therapist That Will Accept/Oversee The Plan Of Care: Fahad Vidal Start of Care Date: 07/13/23 Onset Date: 07/12/21 Plan of Care Certification Date: 07/13/23 Next Certification Due Date: 09/12/23 Patient Identified by Name and Date of : Yes REHABILITATION AND SPORTS THERAPY PHYSICAL THERAPY EVALUATION PLAN OF CARE: Assessment: Barbarajazzmine Hernandez presents with chief complaint of L jaw and ear pain that interferes with Comments Eating, talking, showering. She presents with impairments in ADL's, overall function, range of motion, strength, symptom management, and tissue tenderness. Patient did not complete the PROMIS (Patient Reported Outcome Measures Information System). Prognosis for therapy is Good due to: current objective clinical presentation, within-session changes, good support system/ coping skills . She will benefit from skilled therapy services to meet the goals established for this plan of care as noted below. Goals for Episode of Care: created on 07/13/23 through 09/12/23 Decrease subjective complaints of jaw pain by 50%. Patient to report symptom free with talking and chewing. Decrease tenderness to palpation of craniofacial and intraoral musculature by 50% with no active referral symptoms. Patient to be aware of and compliant with TMJ parafunctional habits to avoid exacerbating symptoms. Patient will demonstrate normal resting position of the jaw to allow for decreased stress on irritable tissue. Planned Interventions, Frequency, and Duration: Current Frequency: 1x/week Duration: 8 weeks Total Number of Visits Planned: 8 Planned Treatment Interventions: Therapeutic exercise (19159), Neuromuscular re-education (64584), Manual therapy (21396), Therapeutic activities (45465), Self-skilled nursing management (16738), Patient/Family/Caregiver Education, Body Mechanics Training PLAN FOR NEXT VISIT: Manual for referring muscles, further assessment of jaw Patient demonstrates good understanding of plan of care and treatment. The above goals and plan of care were discussed and agreed upon by patient/family. SUBJECTIVE: L ear and jaw pain for a few years. Hurts the most after showering and eating. Patient notes she needs to leave appt early, so full exam and subjective was not taken. Functional Limitations: Comments Functional Limitation Comments: Eating, talking, showering Prior Level of Function: Independent without limitations Intake Information: Prescription present Previous Treatment: None Vestibular Neck Symptoms: Yes Ear Symptoms: Yes Description: sharp Rating of current symptoms: 8/10 Location: left ear only Comments: starts in ear and runs down lateral neck, deep Frequency: Constant and increases with activity Duration: all the time Symptoms worsened by: eating, talking, showering Symptoms improved by: nothing Hearing Changes: No recent changes Tinnitus: No recent changes Pain: Pain Pain Level: 8 Pain Location: Jaw Description: Sharp, Aching Frequency: Continuous PROMIS Scales 08/22/2021 Higher is Better Phys Func - Score 27 (severe dysfunction) Phys Func - Percentile 1 Self-Eff Symptom - Score 28 (Very Low) Self-Eff Symptom - Percentile 1 T-scores: mean of general population = 50. 5 points is clinically meaningfully difference Percentiles provide an indication of how the patient's score ranks in relation to the general population. Higher percentile rankings indicate better function/quality of life. 50th percentile is the average of the general population and indicates half of respondents had a worse score. OBJECTIVE MEASURES WITH LEVEL OF FUNCTION: TMJ Observations Bite guard: No Trismus: (unknown) Left TMJ Palpation Tenderness: Intraoral deep masseter, Superficial masseter Myofascial Restricton comments: SCM, upper trap TMJ AROM Crepitus: Present Clicking: Opening left Education: Education Learning/educational needs: Home exercise program, Plan of Care, Changes in Plan of Care, Posture TREATMENT: PT Treatment Interventions: Therapeutic Exercise, Manual Therapy Evaluation Therapeutic Exercise: 1: *SCM stretch 3x30 sec 2: *SCM self release 3: *Masseter self release Skilled Intervention: Patient was educated in proper exercise technique and purpose for exercises. Skilled judgment was used in selection of appropriate interventions. Provided written instruction for home exercise program to facilitate proper performance and compliance. Correct performance of therapeutic exercises was facilitated with verbal, visual, and tactile cuing. Manual Therapy: 1: SCM stripping and TrPr on L 2: Masseter stripping Skilled Intervention: Manual skills to improve joint mobility, ROM, and decrease pain. Utilized anatomy knowledge of the therapist, and assessment of patient's response to intervention. Billing * Evaluation Low Complexity: 1 Unit Therapeutic Exercise Treatment Minutes: 10 Manual TherapyTreatment Minutes: 15 Skilled Treatment Time Minutes (timed and untimed codes): 35 Total Session Time (minutes): 35 Session Start Time : 0900 Session Stop Time : 934 Fahad Vidal PT documented in this encounter [facility] 07-06-2023 Telephone encounter Note Spoke with patient and scheduled with Dr. Ocasio for July 13. Nicolette Godinez [facility] 07-06-2023 Miscellaneous Notes Spoke with patient and scheduled with Dr. Ocasio for July 13. Nicolette Godinez PSS from Dr. Girard office reached out to this PSS to get the patient scheduled as she no showed and cancelled previously. Left message for patient to return call. When she calls, please scheduled New Patient appointment with Dr. Ocasio. Racheal Guardado documented in this encounter [facility] 06-30-2023 Telephone encounter Note PSS from Dr. Girard office reached out to this PSS to get the patient scheduled as she no showed and cancelled previously. Left message for patient to return call. When she calls, please scheduled New Patient appointment with Dr. Ocasio. Racheal Guardado [facility] 06-30-2023 Miscellaneous Notes Dung notified of below results/recommendations, verbalized understanding. Patient just picked up RX for Atorvastatin/Lipitor 20mg, will double to equal 40mg, asking for new RX to go to [facility]. Dung will call to reschedule hematology consult. Diann Benitez LPN 1) Cholesterol not better. I recommend increasing Lipitor to 40 mg at bedtime. If agreeable, I will send prescription. 2) Elevated platelets, chronic for years and stable. Nely referred her to hematology last year but appointment was cancelled. She should consider rescheduling that consult. 3) Rest of labs are normal. Patient calling for results of recent lab work. States she is very concerned about them. Please advise. documented in this encounter [facility] 06-29-2023 Miscellaneous Notes Patient has been identified by name and date of : Yes, Provider Date Time Patient phones for refill(s): Requested Prescriptions Pending Prescriptions Disp Refills albuterol HFA (PROVENTIL HFA, VENTOLIN HFA) 90 mcg/actuation inhaler 18 g 1 Sig: Inhale 2 Puffs as instructed every 4 hours as needed for wheezing/shortness of breath. Patient requests VENTOLIN please. With spacer please. Date of last office visit in primary care: 06/27/2023 Date of next office visit in primary care: 12/28/2023 Please advise. Thank you. Tejal Lin RN. documented in this encounter [facility] 06-27-2023 Note HNO ID: [id number] Author: PAOLO GIRARD MD Service: ? Author Type: Physician Type: Progress Notes Filed: 06/27/2023 15:00 Note Text: This note was created using myOrderriter. Subjective Patient presents with: F/U 6 months Barbara Hernandez is a 57 year old female. She complained of left ear pain and jaw popping for one year. She was seen for this 6 months ago, as well as in urgent care. She had weight loss which stabilized. Abnormal xray was followed with a CT scan of the chest done at [facility] with no mass. She mainly needed a letter for her fur sorter pet dog to be permitted to stay with her. She was dealing with the of her good friend from cancer and felt more depressed. She was placed on doxycycline prison for some chronic dermatitis. She was not sure it was helping. Review of Systems Constitutional: Positive for fatigue. Negative for unexpected weight change. HENT: Positive for ear pain. Negative for ear discharge and hearing loss. Respiratory: Negative for cough and shortness of breath. Cardiovascular: Negative. Gastrointestinal: Negative. Skin: Negative for rash. ACTIVE PROBLEM LIST Depression, Major Emphysema/COPD (HCC) Cigarette Smoker Post-Traumatic Stress Disorder Anxiety Disorder Fibromyalgia Traumatic Coccydynia Impaired Glucose Metabolism Cervical Spondylosis Without Myelopathy Post Laminectomy Syndrome Hyperlipidemia Social History Tobacco Use Smoking status: Every Day Packs/day: 1.00 Years: 20.00 Additional pack years: 0.00 Total pack years: 20.00 Types: Cigarettes Smokeless tobacco: Never Tobacco comments: Down to a couple cigarettes a day Vaping Use Vaping Use: Never used Substance Use Topics Alcohol use: Not Currently Comment: quit drinking 01/25/18 Drug use: No Current Outpatient Medications Medication Sig fluticasone (FLONASE) 50 mcg/actuation nasal spray Use 2 Sprays in each nostril once daily. Rinse mouth after use. albuterol HFA (PROVENTIL HFA, VENTOLIN HFA) 90 mcg/actuation inhaler Inhale 2 Puffs as instructed every 4 hours as needed for wheezing/shortness of breath. Patient requests VENTOLIN please. With spacer please. FLUoxetine (PROZAC) 40 mg capsule Take 1 capsule by mouth two times a day. doxycycline (VIBRA-TABS) 100 mg tablet Take 1 tablet by mouth two times a day. gabapentin (NEURONTIN) 600 mg tablet Take 1 tablet by mouth three times a day for 180 days. metoprolol succinate ER (TOPROL XL) 25 mg 24 hr tablet Take 1 tablet by mouth once daily. cyclobenzaprine (FLEXERIL) 10 mg tablet Take 1 tablet by mouth three times daily as needed for muscle spasm. atorvastatin (LIPITOR) 20 mg tablet Take 1 tablet by mouth once daily. omeprazole (PRILOSEC) 40 mg capsule Take 40 mg by mouth. acetaminophen (TYLENOL EXTRA STRENGTH) 500 mg tablet Take 2 tablets by mouth every 6 hours as needed for pain. loratadine (CLARITIN) 10 mg tablet Take 1 tablet by mouth once daily. (Patient not taking: Reported on 06/27/2023) No current facility-administered medications for this visit. Objective Blood Pressure 108/64 (BP Site: Left Arm, BP Position: Sitting, BP Cuff Size: Large Adult) Pulse 96 Temperature 36.6 ?C (97.8 ?F) (Temporal) Weight 42.5 kg (93 lb 12.8 oz) Last Menstrual Period 08/06/2014 (LMP Unknown) Oxygen Saturation 97% Body Mass Index 15.14 kg/m? Physical Exam Constitutional: Appearance: She is underweight. She is not ill-appearing. HENT: Head: Normocephalic. Right Ear: Tympanic membrane, ear canal and external ear normal. Left Ear: Tympanic membrane, ear canal and external ear normal. Mouth/Throat: Mouth: Mucous membranes are moist. Pharynx: Oropharynx is clear. Comments: Left TMJ tender, with crepitus. Cardiovascular: Rate and Rhythm: Normal rate and regular rhythm. Heart sounds: No murmur heard. No gallop. Pulmonary: Effort: No respiratory distress. Breath sounds: No wheezing or rales. Musculoskeletal: Right lower leg: No edema. Left lower leg: No edema. Lymphadenopathy: Cervical: No cervical adenopathy. Skin: Findings: No lesion or rash. Neurological: Mental Status: She is alert. Psychiatric: Mood and Affect: Mood normal. Behavior: Behavior normal. Assessment and Plan 1. Generalized anxiety disorder - ICD9: 300.02, ICD10: F41.1 (primary diagnosis) Letter written. 2. Post laminectomy syndrome - ICD9: 722.80, ICD10: M96.1 - GABAPENTIN 600 MG TABLET - CYCLOBENZAPRINE 10 MG TABLET - COMPLETE BLOOD COUNT 3. Hyperlipidemia, unspecified hyperlipidemia type - ICD9: 272.4, ICD10: E78.5 - Control undetermined, due for labs - ATORVASTATIN 20 MG TABLET - COMPREHENSIVE METABOLIC PANEL - LIPID PANEL, NONFASTING 4. Post-traumatic stress disorder - ICD9: 309.81, ICD10: F43.10 Stable. 5. Mild episode of recurrent major depressive disorder (HCC) - ICD9: 296.31, ICD10: F33.0 Stable overall. 6. Pulmonary emphysema, unspecified e (more content not included)... [facility] 06-27-2023 History of Present illness Narrative This note was created using myOrderriter. Subjective Patient presents with: F/U 6 months Barbarajazzmine Hernandez is a 57 year old female. She complained of left ear pain and jaw popping for one year. She was seen for this 6 months ago, as well as in urgent care. She had weight loss which stabilized. Abnormal xray was followed with a CT scan of the chest done at [facility] with no mass. She mainly needed a letter for her fur sorter pet dog to be permitted to stay with her. She was dealing with the of her good friend from cancer and felt more depressed. She was placed on doxycycline prison for some chronic dermatitis. She was not sure it was helping. Review of Systems Constitutional: Positive for fatigue. Negative for unexpected weight change. HENT: Positive for ear pain. Negative for ear discharge and hearing loss. Respiratory: Negative for cough and shortness of breath. Cardiovascular: Negative. Gastrointestinal: Negative. Skin: Negative for rash. ACTIVE PROBLEM LIST Depression, Major Emphysema/COPD (HCC) Cigarette Smoker Post-Traumatic Stress Disorder Anxiety Disorder Fibromyalgia Traumatic Coccydynia Impaired Glucose Metabolism Cervical Spondylosis Without Myelopathy Post Laminectomy Syndrome Hyperlipidemia Social History Tobacco Use Smoking status: Every Day Packs/day: 1.00 Years: 20.00 Additional pack years: 0.00 Total pack years: 20.00 Types: Cigarettes Smokeless tobacco: Never Tobacco comments: Down to a couple cigarettes a day Vaping Use Vaping Use: Never used Substance Use Topics Alcohol use: Not Currently Comment: quit drinking 01/25/18 Drug use: No Current Outpatient Medications Medication Sig fluticasone (FLONASE) 50 mcg/actuation nasal spray Use 2 Sprays in each nostril once daily. Rinse mouth after use. albuterol HFA (PROVENTIL HFA, VENTOLIN HFA) 90 mcg/actuation inhaler Inhale 2 Puffs as instructed every 4 hours as needed for wheezing/shortness of breath. Patient requests VENTOLIN please. With spacer please. FLUoxetine (PROZAC) 40 mg capsule Take 1 capsule by mouth two times a day. doxycycline (VIBRA-TABS) 100 mg tablet Take 1 tablet by mouth two times a day. gabapentin (NEURONTIN) 600 mg tablet Take 1 tablet by mouth three times a day for 180 days. metoprolol succinate ER (TOPROL XL) 25 mg 24 hr tablet Take 1 tablet by mouth once daily. cyclobenzaprine (FLEXERIL) 10 mg tablet Take 1 tablet by mouth three times daily as needed for muscle spasm. atorvastatin (LIPITOR) 20 mg tablet Take 1 tablet by mouth once daily. omeprazole (PRILOSEC) 40 mg capsule Take 40 mg by mouth. acetaminophen (TYLENOL EXTRA STRENGTH) 500 mg tablet Take 2 tablets by mouth every 6 hours as needed for pain. loratadine (CLARITIN) 10 mg tablet Take 1 tablet by mouth once daily. (Patient not taking: Reported on 06/27/2023) No current facility-administered medications for this visit. Objective Blood Pressure 108/64 (BP Site: Left Arm, BP Position: Sitting, BP Cuff Size: Large Adult) Pulse 96 Temperature 36.6 C (97.8 F) (Temporal) Weight 42.5 kg (93 lb 12.8 oz) Last Menstrual Period 08/06/2014 (LMP Unknown) Oxygen Saturation 97% Body Mass Index 15.14 kg/m Physical Exam Constitutional: Appearance: She is underweight. She is not ill-appearing. HENT: Head: Normocephalic. Right Ear: Tympanic membrane, ear canal and external ear normal. Left Ear: Tympanic membrane, ear canal and external ear normal. Mouth/Throat: Mouth: Mucous membranes are moist. Pharynx: Oropharynx is clear. Comments: Left TMJ tender, with crepitus. Cardiovascular: Rate and Rhythm: Normal rate and regular rhythm. Heart sounds: No murmur heard. No gallop. Pulmonary: Effort: No respiratory distress. Breath sounds: No wheezing or rales. Musculoskeletal: Right lower leg: No edema. Left lower leg: No edema. Lymphadenopathy: Cervical: No cervical adenopathy. Skin: Findings: No lesion or rash. Neurological: Mental Status: She is alert. Psychiatric: Mood and Affect: Mood normal. Behavior: Behavior normal. Assessment and Plan 1. Generalized anxiety disorder - ICD9: 300.02, ICD10: F41.1 (primary diagnosis) Letter written. 2. Post laminectomy syndrome - ICD9: 722.80, ICD10: M96.1 - GABAPENTIN 600 MG TABLET - CYCLOBENZAPRINE 10 MG TABLET - COMPLETE BLOOD COUNT 3. Hyperlipidemia, unspecified hyperlipidemia type - ICD9: 272.4, ICD10: E78.5 - Control undetermined, due for labs - ATORVASTATIN 20 MG TABLET - COMPREHENSIVE METABOLIC PANEL - LIPID PANEL, NONFASTING 4. Post-traumatic stress disorder - ICD9: 309.81, ICD10: F43.10 Stable. 5. Mild episode of recurrent major depressive disorder (HCC) - ICD9: 296.31, ICD10: F33.0 Stable overall. 6. Pulmonary emphysema, unspecified emphysema type (HCC) - ICD9: 492.8, ICD10: J43.9 Stable. 7. Arthralgia of left temporomandibular joint - ICD9: 524.62, ICD10: M26.622 - CONSULT TO PHYSICAL THERAPY 8. Rash and nonspecific skin eruption - ICD9: 782.1, ICD10: R21 Inactive at this time. - Discontinue DOXYCYCLINE. Patient indicated understanding and willingness to follow recommendations. Paolo Girard MD documented in this encounter [facility] 06-05-2023 Note HNO ID: [id number] Author: ANNIE WHITFIELD APRN.HOME CARE NURSE Service: ? Author Type: Nurse Practitioner Type: Progress Notes Filed: 06/05/2023 14:54 Note Text: This note was created using myOrderriter. Subjective Barbara Hernandez is a 57 year old female. Patient reports she has had ear pain for a long time . Has seen PCP for issue and has scheduled appointments with ENT but other things always come up per patient and she has had to cancel ENT appointments. Patient reports pain is worse after washing hair so I try to only wash my hair every other day Patient denies sinus issues. Ear Pain Review of Systems HENT: Positive for ear pain. Objective BP 126/73 Pulse 90 Temp 36.6 ?C (97.8 ?F) Resp 18 Wt 44 kg (97 lb) LMP 08/06/2014 (LMP Unknown) SpO2 95% BMI 15.66 kg/m? Physical Exam HENT: Right Ear: Hearing, tympanic membrane, ear canal and external ear normal. No middle ear effusion. There is no impacted cerumen. No mastoid tenderness. Left Ear: Hearing, tympanic membrane, ear canal and external ear normal. No middle ear effusion. There is no impacted cerumen. No mastoid tenderness. Ears: Comments: Both ears appear to be normal. Patient reports pain is in inner ear behind ear lobes by mandible. PAST MEDICAL HISTORY Diagnosis Date Anxiety disorder 06/23/2011 Chronic obstructive pulmonary disease (COPD) ([facility]) Complicated grief 06/23/2011 Depression Depression, major 04/23/2010 Emphysema/COPD ([facility]) 04/23/2010 Fibromyalgia 03/28/[address] Bergman Hot flashes 02/28/2013 Inflammatory polyarthropathy ([facility]) 03/28/[address] Vellanki Marcia - [place] tear 09/2010 received transfusion Post-traumatic stress disorder 06/03/2010 RSD (reflex sympathetic dystrophy) 03/28/2013 Right upper extremity screening for Type 2 diabetes mellitus without complication ([facility]) 07/16/2016 PAST SURGICAL HISTORY Procedure Laterality Date ESOPHAGOGASTRODUODENOSCOPY TRANSORAL DIAGNOSTIC 10/07/2010 EGD [facility] inpt n /H-pylori negative LAMINOTOMY (HEMILAMINECTOMY), WITH DECOMPRESSION OF NERVE ROOT(S) Right 03/12/2020 L5-S1 discectomy, [facility], Dr. Bety Spicer LIG/TRNSXJ FLP TUBE ABDL/VAG APPR UNI/BI Tubal ligation PAST SURGICAL HISTORY OF 07/24/2018 Complete hysterectomy PAST SURGICAL HISTORY OF Right carpal tunnel ALLERGIES Cortisone; Latex, Natural Rubber; Penicillins; Iv Contrast [Iodine]; Meloxicam; Entex [Phenylephrine-Guaifenesin]; and Naprosyn [Naproxen] MEDICATIONS loratadine (CLARITIN) 10 mg tablet Take 1 tablet by mouth once daily. fluticasone (FLONASE) 50 mcg/actuation nasal spray Use 2 Sprays in each nostril once daily. Rinse mouth after use. albuterol HFA (PROVENTIL HFA, VENTOLIN HFA) 90 mcg/actuation inhaler Inhale 2 Puffs as instructed every 4 hours as needed for wheezing/shortness of breath. Patient requests VENTOLIN please. With spacer please. FLUoxetine (PROZAC) 40 mg capsule Take 1 capsule by mouth two times a day. doxycycline (VIBRA-TABS) 100 mg tablet Take 1 tablet by mouth two times a day. gabapentin (NEURONTIN) 600 mg tablet Take 1 tablet by mouth three times a day for 180 days. metoprolol succinate ER (TOPROL XL) 25 mg 24 hr tablet Take 1 tablet by mouth once daily. cyclobenzaprine (FLEXERIL) 10 mg tablet Take 1 tablet by mouth three times daily as needed for muscle spasm. atorvastatin (LIPITOR) 20 mg tablet Take 1 tablet by mouth once daily. omeprazole (PRILOSEC) 40 mg capsule Take 40 mg by mouth. acetaminophen (TYLENOL EXTRA STRENGTH) 500 mg tablet Take 2 tablets by mouth every 6 hours as needed for pain. FAMILY HISTORY Problem Relation Age of Onset Diabetes Mother Hypertension Mother Cancer Mother Coronary Artery Disease Father myesthenia gravis Heart Father By-pass COPD Brother other (Smoker) Brother Social History Tobacco Use Smoking status: Every Day Packs/day: 1.00 Years: 20.00 Additional pack years: 0.00 Total pack years: 20.00 Types: Cigarettes Smokeless tobacco: Never Tobacco comments: Down to a couple cigarettes a day Vaping Use Vaping Use: Never used Substance Use Topics Alcohol use: Not Currently Comment: quit drinking 01/25/18 Drug use: No ASSESSMENT/PLAN: 1. Congestion of both ears - ICD9: 388.8, ICD10: H93.8X3 - Encouraged follow up with ENT - Patient prescribed Flonase to help with congestion, chart reports history of cortisone allergy (hives) but has recently tolerated prednisone - LORATADINE 10 MG TABLET - FLUTICASONE PROPIONATE 50 MCG/ACTUATION NASAL SPRAY,SUSPENSION Prescription instructions reviewed with patient. Potential red flag symptoms discussed with the patient. Reviewed appropriate action plan to take if red flag symptoms occur. Patient agreeable to treatment plan. Gladis Centeno Supervising provider was present and guided the care of the patient for the entire session on this date. All documentation was reviewed and agreed upon. Annie Kent (more content not included)... [facility] 06-05-2023 History of Present illness Narrative This note was created using [employer]. Subjective Barbara Hernandez is a 57 year old female. Patient reports she has had ear pain for a long time . Has seen PCP for issue and has scheduled appointments with ENT but other things always come up per patient and she has had to cancel ENT appointments. Patient reports pain is worse after washing hair so I try to only wash my hair every other day Patient denies sinus issues. Ear Pain Review of Systems HENT: Positive for ear pain. Objective BP 126/73 Pulse 90 Temp 36.6 C (97.8 F) Resp 18 Wt 44 kg (97 lb) LMP 08/06/2014 (LMP Unknown) SpO2 95% BMI 15.66 kg/m Physical Exam HENT: Right Ear: Hearing, tympanic membrane, ear canal and external ear normal. No middle ear effusion. There is no impacted cerumen. No mastoid tenderness. Left Ear: Hearing, tympanic membrane, ear canal and external ear normal. No middle ear effusion. There is no impacted cerumen. No mastoid tenderness. Ears: Comments: Both ears appear to be normal. Patient reports pain is in inner ear behind ear lobes by mandible. PAST MEDICAL HISTORY Diagnosis Date Anxiety disorder 06/23/2011 Chronic obstructive pulmonary disease (COPD) ([facility]) Complicated grief 06/23/2011 Depression Depression, major 04/23/2010 Emphysema/COPD ([facility]) 04/23/2010 Fibromyalgia 03/28/[address] Bergman Hot flashes 02/28/2013 Inflammatory polyarthropathy ([facility]) 03/28/[address] Bergman Marcia - [place] tear 09/2010 received transfusion Post-traumatic stress disorder 06/03/2010 RSD (reflex sympathetic dystrophy) 03/28/2013 Right upper extremity screening for Type 2 diabetes mellitus without complication ([facility]) 07/16/2016 PAST SURGICAL HISTORY Procedure Laterality Date ESOPHAGOGASTRODUODENOSCOPY TRANSORAL DIAGNOSTIC 10/07/2010 EGD [facility] inpt n /H-pylori negative LAMINOTOMY (HEMILAMINECTOMY), WITH DECOMPRESSION OF NERVE ROOT(S) Right 03/12/2020 L5-S1 discectomy, [facility], Dr. Bety Spicer LIG/TRNSXJ FLP TUBE ABDL/VAG APPR UNI/BI Tubal ligation PAST SURGICAL HISTORY OF 07/24/2018 Complete hysterectomy PAST SURGICAL HISTORY OF Right carpal tunnel ALLERGIES Cortisone; Latex, Natural Rubber; Penicillins; Iv Contrast [Iodine]; Meloxicam; Entex [Phenylephrine-Guaifenesin]; and Naprosyn [Naproxen] MEDICATIONS loratadine (CLARITIN) 10 mg tablet Take 1 tablet by mouth once daily. fluticasone (FLONASE) 50 mcg/actuation nasal spray Use 2 Sprays in each nostril once daily. Rinse mouth after use. albuterol HFA (PROVENTIL HFA, VENTOLIN HFA) 90 mcg/actuation inhaler Inhale 2 Puffs as instructed every 4 hours as needed for wheezing/shortness of breath. Patient requests VENTOLIN please. With spacer please. FLUoxetine (PROZAC) 40 mg capsule Take 1 capsule by mouth two times a day. doxycycline (VIBRA-TABS) 100 mg tablet Take 1 tablet by mouth two times a day. gabapentin (NEURONTIN) 600 mg tablet Take 1 tablet by mouth three times a day for 180 days. metoprolol succinate ER (TOPROL XL) 25 mg 24 hr tablet Take 1 tablet by mouth once daily. cyclobenzaprine (FLEXERIL) 10 mg tablet Take 1 tablet by mouth three times daily as needed for muscle spasm. atorvastatin (LIPITOR) 20 mg tablet Take 1 tablet by mouth once daily. omeprazole (PRILOSEC) 40 mg capsule Take 40 mg by mouth. acetaminophen (TYLENOL EXTRA STRENGTH) 500 mg tablet Take 2 tablets by mouth every 6 hours as needed for pain. FAMILY HISTORY Problem Relation Age of Onset Diabetes Mother Hypertension Mother Cancer Mother Coronary Artery Disease Father myesthenia gravis Heart Father By-pass COPD Brother other (Smoker) Brother Social History Tobacco Use Smoking status: Every Day Packs/day: 1.00 Years: 20.00 Additional pack years: 0.00 Total pack years: 20.00 Types: Cigarettes Smokeless tobacco: Never Tobacco comments: Down to a couple cigarettes a day Vaping Use Vaping Use: Never used Substance Use Topics Alcohol use: Not Currently Comment: quit drinking 01/25/18 Drug use: No ASSESSMENT/PLAN: 1. Congestion of both ears - ICD9: 388.8, ICD10: H93.8X3 - Encouraged follow up with ENT - Patient prescribed Flonase to help with congestion, chart reports history of cortisone allergy (hives) but has recently tolerated prednisone - LORATADINE 10 MG TABLET - FLUTICASONE PROPIONATE 50 MCG/ACTUATION NASAL SPRAY,SUSPENSION Prescription instructions reviewed with patient. Potential red flag symptoms discussed with the patient. Reviewed appropriate action plan to take if red flag symptoms occur. Patient agreeable to treatment plan. Gladis Centeno Supervising provider was present and guided the care of the patient for the entire session on this date. All documentation was reviewed and agreed upon. Annie Whitfield APRN.[place] documented in this encounter [facility] 05-26-2023 Note HNO ID: [id number] Author: CURLY HENDRICKS MA Service: ? Author Type: Smudger Type: Progress Notes Filed: 05/26/2023 15:01 Note Text: POPULATION HEALTH NAVIGATION OUTREACH Action/FYI msg to schedule wellness Reason for Outreach Care Gap/HCC or Scheduling Wellness Visits Care Gaps due: Medicare Annual Wellness Visit Patient Contacted: Unable or unnecessary to reach patient: Left message Navigation Signature: Curly Hendricks MA May 26, 2023 3:01 PM [facility] 05-26-2023 History of Present illness Narrative POPULATION HEALTH NAVIGATION OUTREACH Action/FYI msg to schedule wellness Reason for Outreach Care Gap/HCC or Scheduling Wellness Visits Care Gaps due: Medicare Annual Wellness Visit Patient Contacted: Unable or unnecessary to reach patient: Left message Navigation Signature: Curly Hendricks MA May 26, 2023 3:01 PM documented in this encounter [facility] 05-26-2023 Note Patient Outreach (VESNA HE) ---- BARBARA HERNANDEZ ([id number]) 1965 F CHT Date Time Provider Department 05/26/23 CURLY HENDRICKS During your visit today, we recorded the following information about you: Curly Hendricks MA 05/26/2023 3:01 PM Signed POPULATION HEALTH NAVIGATION OUTREACH Action/FYI msg to schedule wellness Reason for Outreach Care Gap/HCC or Scheduling Wellness Visits Care Gaps due: Medicare Annual Wellness Visit Patient Contacted: Unable or unnecessary to reach patient: Left message Navigation Signature: Curly Hendricks MA May 26, 2023 3:01 PM Allergies As of Date: 05/26/2023 Noted Allergy Reaction CORTISONE 08/14/2014 4 - Hives LATEX, NATURAL RUBBER 04/23/2010 2 - Rash PENICILLINS 12/21/2004 4 - Hives IV CONTRAST (IODINE) 09/16/2021 14 - Other: See Comments Comments: Patient reports she has had reactions to contrast on occasion, not consistently, and no specific reaction was noted MELOXICAM 08/13/2021 8 - GI Upset ENTEX (PHENYLEPHRINE-GUAIFENESIN) 01/04/2005 5 - Intolerance NAPROSYN (NAPROXEN) 12/21/2004 2 - Rash Date Reviewed: 05/17/2023 Reviewed by: Jacey Fontaine RT(R) - Fully Assessed Reason for Visit: Population Health Navigation Outreach [3910] Cmt: [employer] care gaps Prescriptions as of 05/26/2023 - albuterol HFA (PROVENTIL HFA, VENTOLIN HFA) 90 mcg/actuation inhaler Inhale 2 Puffs as instructed every 4 hours as needed for wheezing/shortness of breath. Patient requests VENTOLIN please. With spacer please. - FLUoxetine (PROZAC) 40 mg capsule Take 1 capsule by mouth two times a day. - doxycycline (VIBRA-TABS) 100 mg tablet Take 1 tablet by mouth two times a day. - gabapentin (NEURONTIN) 600 mg tablet Take 1 tablet by mouth three times a day for 180 days. - metoprolol succinate ER (TOPROL XL) 25 mg 24 hr tablet Take 1 tablet by mouth once daily. - cyclobenzaprine (FLEXERIL) 10 mg tablet Take 1 tablet by mouth three times daily as needed for muscle spasm. - atorvastatin (LIPITOR) 20 mg tablet Take 1 tablet by mouth once daily. - omeprazole (PRILOSEC) 40 mg capsule Take 40 mg by mouth. - acetaminophen (TYLENOL EXTRA STRENGTH) 500 mg tablet Take 2 tablets by mouth every 6 hours as needed for pain. Problem List As Of Date 05/26/2023 Noted Resolved Depression, major [F32.9] 04/23/2010 Emphysema/COPD (HCC) [J43.9] 04/23/2010 Cigarette smoker [F17.210] 05/05/2010 Post-traumatic stress disorder [F43.10] 06/03/2010 Complicated grief [F43.21] 06/23/2011 02/02/2021 Anxiety disorder [F41.9] 06/23/2011 Hip pain [M25.559] 02/07/2013 01/11/2022 Hot flashes [R23.2] 02/28/2013 02/27/2021 RSD (reflex sympathetic dystrophy) [G90.50] 03/28/2013 Fibromyalgia [M79.7] 03/28/2013 Inflammatory polyarthropathy (HCC) [M06.4] 03/28/2013 01/11/2022 NO SHOW [[id number]] 09/04/2014 12/10/2015 Nightmares associated with chronic post-traumat*09/21/2017 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 Author Type: Smudger Type: Progress Notes Filed: 01/19/2023 2:42 PM Note Text: POPULATION HEALTH NAVIGATION OUTREACH Action/FYI Patient returns call and states she is moving in the next few weeks and will call back to schedule wellness and CRS. Patient states she thinks her Cologuard was stolen off her porch and doesn't want another one ordered until she moves. Patient will discuss AD with PCP Patient Identified by Name and : YES, via phone Outreach Outcome/Action Spoke to patient / parent / legal guardian: Patient will return the call or ask for return call Did you use a PCP flex slot to schedule this appointment? N/A Reason for Outreach Payer: Payor: [facility] MEDICAID / Plan: [facility] MEDICAID / Product Type: Medicaid / Care Gap Reviewed:: Reminder: Reminder note to check Health Maintenance for items below Health Maintenance items due: Colorectal Cancer Screening Never done Navigation Signature: Jacey Maloney MA January 19, 2023 2:40 PM [facility] 01-19-2023 History of Present illness Narrative POPULATION HEALTH NAVIGATION OUTREACH Action/FYI Patient returns call and states she is moving in the next few weeks and will call back to schedule wellness and CRS. Patient states she thinks her Cologuard was stolen off her porch and doesn't want another one ordered until she moves. Patient will discuss AD with PCP Patient Identified by Name and : YES, via phone Outreach Outcome/Action Spoke to patient / parent / legal guardian: Patient will return the call or ask for return call Did you use a PCP flex slot to schedule this appointment? N/A Reason for Outreach Payer: Payor: [facility] MEDICAID / Plan: [facility] MEDICAID / Product Type: Medicaid / Care Gap Reviewed:: Reminder: Reminder note to check Health Maintenance for items below Health Maintenance items due: Colorectal Cancer Screening Never done Navigation Signature: Jacey Maloney MA January 19, 2023 2:40 PM POPULATION HEALTH NAVIGATION OUTREACH Action/FYI Called and left a message to call [phone], to discuss health maintenance items that are due. Sent My Chart message. PCP appt: wellness last seen 01/10/23 My chart activation: active Advance directive: needs info HM due: Wellness Cologuard Ad Patient Identified by Name and : NO Outreach Outcome/Action Unable to reach patient: Left message vIPtelahart message sent Did you use a PCP flex slot to schedule this appointment? N/A Reason for Outreach Care Gap or Scheduling/Wellness visits Payer: Payor: [facility] MEDICAID / Plan: [facility] MEDICAID / Product Type: Medicaid / Care Gap Reviewed:: Annual Wellness visit Colorectal Cancer Screening Reminder: Reminder note to check Health Maintenance for items below Health Maintenance items due: Colorectal Cancer Screening Never done Navigation Signature: Jacey Maloney MA January 19, 2023 2:36 PM documented in this encounter [facility] 01-19-2023 Note HNO ID: [id number] Author: Jacey Maloney MA Service: ? Author Type: Smudger Type: Progress Notes Filed: 01/19/2023 2:38 PM Note Text: POPULATION HEALTH NAVIGATION OUTREACH Action/FYI Called and left a message to call [phone], to discuss health maintenance items that are due. Sent My Chart message. PCP appt: wellness last seen 01/10/23 My chart activation: active Advance directive: needs info HM due: Wellness Cologuard Ad Patient Identified by Name and : NO Outreach Outcome/Action Unable to reach patient: Left message MyChart message sent Did you use a PCP flex slot to schedule this appointment? N/A Reason for Outreach Care Gap or Scheduling/Wellness visits Payer: Payor: [facility] MEDICAID / Plan: [facility] MEDICAID / Product Type: Medicaid / Care Gap Reviewed:: Annual Wellness visit Colorectal Cancer Screening Reminder: Reminder note to check Health Maintenance for items below Health Maintenance items due: Colorectal Cancer Screening Never done Navigation Signature: Jacey Maloney MA January 19, 2023 2:36 PM [facility] 01-19-2023 Note Patient Outreach (VESNA LEONAV) ---- BARBARA HERNANDEZ ([id number]) 1965 F T Date Time Provider Department 01/19/23 JACEY MALONEY During your visit today, we recorded the following information about you: Jacey Maloney MA 01/19/2023 2:38 PM Signed POPULATION HEALTH NAVIGATION OUTREACH Action/FYI Called and left a message to call [phone], to discuss health maintenance items that are due. Sent My Chart message. PCP appt: wellness last seen 01/10/23 My chart activation: active Advance directive: needs info HM due: Wellness Cologuard Ad Patient Identified by Name and : NO Outreach Outcome/Action Unable to reach patient: Left message Visantet message sent Did you use a PCP flex slot to schedule this appointment? N/A Reason for Outreach Care Gap or Scheduling/Wellness visits Payer: Payor: [facility] MEDICAID / Plan: [facility] MEDICAID / Product Type: Medicaid / Care Gap Reviewed:: Annual Wellness visit Colorectal Cancer Screening Reminder: Reminder note to check Health Maintenance for items below Health Maintenance items due: Colorectal Cancer Screening Never done Navigation Signature: Jacey Maloney MA January 19, 2023 2:36 PM Jacey Maloney MA 01/19/2023 2:42 PM Signed POPULATION HEALTH NAVIGATION OUTREACH Action/FYI Patient returns call and states she is moving in the next few weeks and will call back to schedule wellness and CRS. Patient states she thinks her Cologuard was stolen off her porch and doesn't want another one ordered until she moves. Patient will discuss AD with PCP Patient Identified by Name and : YES, via phone Outreach Outcome/Action Spoke to patient / parent / legal guardian: Patient will return the call or ask for return call Did you use a PCP flex slot to schedule this appointment? N/A Reason for Outreach Payer: Payor: [facility] MEDICAID / Plan: [facility] MEDICAID / Product Type: Medicaid / Care Gap Reviewed:: Reminder: Reminder note to check Health Maintenance for items below Health Maintenance items due: Colorectal Cancer Screening Never done Navigation Signature: Jacey Maloney MA January 19, 2023 2:40 PM Allergies As of Date: 01/19/2023 Noted Allergy Reaction CORTISONE 08/14/2014 4 - Hives LATEX, NATURAL RUBBER 04/23/2010 2 - Rash PENICILLINS 12/21/2004 4 - Hives IV CONTRAST (IODINE) 09/16/2021 14 - Other: See Comments Comments: Patient reports she has had reactions to contrast on occasion, not consistently, and no specific reaction was noted MELOXICAM 08/13/2021 8 - GI Upset ENTEX (PHENYLEPHRINE-GUAIFENESIN) 01/04/2005 5 - Intolerance NAPROSYN (NAPROXEN) 12/21/2004 2 - Rash Date Reviewed: 01/10/2023 Reviewed by: Nely Flores APRN.HOME CARE NURSE - Fully Assessed Reason for Visit: Population Health Navigation Outreach [3910] Cmt: [facility] care gaps Prescriptions as of 01/19/2023 - FLUoxetine (PROZAC) 40 mg capsule Take 1 capsule by mouth once daily. - doxycycline (VIBRA-TABS) 100 mg tablet Take 1 tablet by mouth two times a day. - gabapentin (NEURONTIN) 600 mg tablet Take 1 tablet by mouth three times a day for 180 days. - metoprolol succinate ER (TOPROL XL) 25 mg 24 hr tablet Take 1 tablet by mouth once daily. - cyclobenzaprine (FLEXERIL) 10 mg tablet Take 1 tablet by mouth three times daily as needed for muscle spasm. - albuterol HFA (PROVENTIL HFA, VENTOLIN HFA) 90 mcg/actuation inhaler Inhale 2 Puffs as instructed every 4 hours as needed for wheezing/shortness of breath. Patient requests VENTOLIN please. With spacer please. - atorvastatin (LIPITOR) 20 mg tablet Take 1 tablet by mouth once daily. - omeprazole (PRILOSEC) 40 mg capsule Take 40 mg by mouth. - acetaminophen (TYLENOL EXTRA STRENGTH) 500 mg tablet Take 2 tablets by mouth every 6 hours as needed for pain. Problem List As Of Date 01/19/2023 Noted Resolved Depression, major [F32.9] 04/23/2010 Emphysema/COPD (HCC) [J43.9] 04/23/2010 Cigarette smoker [F17.210] 05/05/2010 Post-traumatic stress disorder [F43.10] 06/03/2010 Complicated grief [F43.21] 06/23/2011 02/02/2021 Anxiety disorder [F41.9] 06/23/2011 Hip pain [M25.559] 02/07/2013 01/11/2022 Hot flashes [R23.2] 02/28/2013 02/27/2021 RSD (reflex sympathetic dystrophy) [G90.50] 03/28/2013 Fibromyalgia [M79.7] 03/28/2013 Inflammatory polyarthropathy (HCC) [M06.4] 03/28/2013 01/11/2022 NO SHOW [406431] 09/04/2014 12/10/2015 Nightmares associated with chronic post-traumat*09/21/2017 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 Racheal Guardado Next new patient appointment time with either me or Dr. Ocasio. Maverick Macdonald DO Referral for thrombocytosis. Please advise. Dinorah Farmer LPN Spoke with pt and information listed below given. Pt verbalizes understanding. Pt would like to see the rawhide trimmer, Routing to Hemaatology to review and call pt. PH: [phone]. Jacob Rosenbaum LPN Please let the patient know the rest of her labs were normal, no indication for cause of elevated platelets and WBC count. Due to her symptoms and persistent elevation recommend referral to rawhide trimmer for further evaluation Nely Flores APRN.CNP Pt calling for lab results from 01/10/23. Please respond to pt via Visantet. Pt also wants it noted in her chart that she received another eviction notice, states provider is aware of what it going on with this & just wants her to be aware she received another one. Mary Leone LPN documented in this encounter [facility] 01-18-2023 Miscellaneous Notes See previous telephone note dated 01/12 Shanelle Albert LPN Please review and advise CONSULT TO HEMATOLOGY Status: Needs Scheduling Requested appt date: Authorizing: Nely Flores APRN.HOME CARE NURSE in [facility] Referral: [id number] (Authorized) Expires: 01/12/2024 Priority: Routine Diagnosis: Thrombocytosis [D75.839] Night sweats [R61] Unintentional weight loss [R63.4] Patient called requesting hematology appointment can be reached at [phone] documented in this encounter [facility] 01-17-2023 Miscellaneous Notes Pt notified via [employer]. Mammogram okay. MRI will be addressed by specialist. TC to patient - she states that she is fine and is not going to hurt her self or anyone else and does not think that who she spoke with yesterday was listening to her. Patient declined scheduling an office visit at this time. Please review mammogram results that are scanned in. Pt states that she had her MRI done at [facility] and should be resulted Tuesday. Schedule follow up appointment. Crisis hotline if worse. Hayder, nurse with [facility] calling to update PCP. Hayder reports patient stated to him that if she had a gun she would kill herself . Hayder states pt does not have a gun and has no current plan. Hayder states he has notified the Police and they will complete a wellness check on patient. Victor Manuel states he needed to let PCP know. No call back needed. Kay Gaston RN documented in this encounter [facility] 01-11-2023 Miscellaneous Notes Patient calling. Has CT CHEST WO IVCON scheduled at [facility] for 01/20. Pt requesting CT order be faxed to [facility] Scheduling to see if able to have scan completed sooner there. Pt requesting 01/20 CT scan not be canceled at [facility] yet. Order faxed to [facility] Scheduling as requested. Kay Gaston RN documented in this encounter [facility] 01-10-2023 History of Present illness Narrative Radiology Service Progress Note PATIENT NAME: Barbara Hernandez DATE OF SERVICE: January 10, 2023 TIME: 11:29 AM PATIENT IDENTITY VERIFICATION COMPLETED USING TWO (2) IDENTIFIERS: Name and Date of confirmed by patient verbally. FALL SCREENING: Has the patient had 2 falls in the last year or 1 fall with injury or currently using an Ambulatory Assistive Device (Walker, Cane, Wheelchair, Crutches, etc.)? No PATIENT GENDER DATA: Female. status: : No status: NO. PATIENT RELEVANT IMPLANT DATA REVIEWED: Not Applicable RADIOLOGY DEPARTMENT: General X-ray: Exam(s) Completed: Chest X-Ray PERIPHERAL IV DATA: Not applicable SIGNED BY: RT Waqas(R) January 10, 2023 11:29 AM documented in this encounter [facility] 01-10-2023 Note HNO ID: [id number] Author: Cherie Solorio RT(R) Service: Radiology Author Type: Technologist Type: Progress Notes Filed: 01/10/2023 11:35 AM Note Text: Radiology Service Progress Note PATIENT NAME: Barbara Hernandez DATE OF SERVICE: January 10, 2023 TIME: 11:29 AM PATIENT IDENTITY VERIFICATION COMPLETED USING TWO (2) IDENTIFIERS: Name and Date of confirmed by patient verbally. FALL SCREENING: Has the patient had 2 falls in the last year or 1 fall with injury or currently using an Ambulatory Assistive Device (Walker, Cane, Wheelchair, Crutches, etc.)? No PATIENT GENDER DATA: Female. status: : No status: NO. PATIENT RELEVANT IMPLANT DATA REVIEWED: Not Applicable RADIOLOGY DEPARTMENT: General X-ray: Exam(s) Completed: Chest X-Ray PERIPHERAL IV DATA: Not applicable SIGNED BY: RT Waqas(R) January 10, 2023 11:29 AM [facility] 01-10-2023 Note HNO ID: [id number] Author: Nely Flores APRN.HOME CARE NURSE Service: ? Author Type: Nurse Practitioner Type: Progress Notes Filed: 01/10/2023 12:25 PM Note Text: CC: Patient presents with: c/o fever and ear pain HPI Barbara Hernandez is a 57 year old female who presents today for above. Patient reports bilateral ear pain and low grade fever x 6-8 weeks. Ear pain is worse on the left. She was treated for acute otitis media on the left on 11/22, symptoms never completely resolved. She was then started on Doxycycline at follow-up on 12/20 for respiratory infection and chronic rash on the buttocks. States her temperature has been between 99 to 100.0 daily. Jaw on the left cracks and there is discomfort when she opens and closes her mouth. She denies muffled hearing, tinnitus or drainage from the ears. She also reports fatigue, drenching night sweats and unintentional weight loss. She is under a tremendous amount of stress due to issues with someone stalking her that lives in her neighborhood. She had to get the police involved finally. All of this is causing significant anxiety and she has no appetite or energy. Rash was attributed to possible chronic folliculitis and has almost completely resolved with Doxycycline. Review of Systems Constitutional: Negative for chills. HENT: Negative for facial swelling, rhinorrhea, sinus pressure, sinus pain, sneezing, sore throat, trouble swallowing and voice change. Respiratory: Positive for cough (chronic secondary to smoking). Negative for chest tightness, shortness of breath and wheezing. Denies hemotpysis Cardiovascular: Negative for chest pain, palpitations and leg swelling. Gastrointestinal: Negative for abdominal pain, anal bleeding, blood in stool, constipation, diarrhea, nausea and vomiting. Endocrine: Negative for cold intolerance, heat intolerance, polydipsia, polyphagia and polyuria. Musculoskeletal: Chronic pain secondary to fibromyalgia Neurological: Positive for weakness and light-headedness. Negative for dizziness, tremors, syncope and headaches. Hematological: Negative for adenopathy. Does not bruise/bleed easily. PAST MEDICAL HISTORY Diagnosis Date Anxiety disorder 06/23/2011 Chronic obstructive pulmonary disease (COPD) ([facility]) Complicated grief 06/23/2011 Depression Depression, major 04/23/2010 Emphysema/COPD ([facility]) 04/23/2010 Fibromyalgia 03/28/[address] Bergman Hot flashes 02/28/2013 Inflammatory polyarthropathy ([facility]) 03/28/[address] Bergman Marcia - Freedman tear 09/2010 received transfusion Post-traumatic stress disorder 06/03/2010 RSD (reflex sympathetic dystrophy) 03/28/2013 Right upper extremity screening for Type 2 diabetes mellitus without complication ([facility]) 07/16/2016 PAST SURGICAL HISTORY Procedure Laterality Date ESOPHAGOGASTRODUODENOSCOPY TRANSORAL DIAGNOSTIC 10/07/2010 EGD [facility] inpt n /H-pylori negative LAMINOTOMY (HEMILAMINECTOMY), WITH DECOMPRESSION OF NERVE ROOT(S) Right 03/12/2020 L5-S1 discectomy, [facility], Dr. Bety Spicer LIG/TRNSXJ FLP TUBE ABDL/VAG APPR UNI/BI Tubal ligation PAST SURGICAL HISTORY OF 07/24/2018 Complete hysterectomy PAST SURGICAL HISTORY OF Right carpal tunnel ALLERGIES Cortisone; Latex, Natural Rubber; Penicillins; Iv Contrast [Iodine]; Meloxicam; Entex [Phenylephrine-Guaifenesin]; and Naprosyn [Naproxen] MEDICATIONS FLUoxetine (PROZAC) 40 mg capsule Take 1 capsule by mouth once daily. (Patient taking differently: Take 40 mg by mouth two times a day.) gabapentin (NEURONTIN) 600 mg tablet Take 1 tablet by mouth three times a day for 180 days. metoprolol succinate ER (TOPROL XL) 25 mg 24 hr tablet Take 1 tablet by mouth once daily. cyclobenzaprine (FLEXERIL) 10 mg tablet Take 1 tablet by mouth three times daily as needed for muscle spasm. albuterol HFA (PROVENTIL HFA, VENTOLIN HFA) 90 mcg/actuation inhaler Inhale 2 Puffs as instructed every 4 hours as needed for wheezing/shortness of breath. Patient requests VENTOLIN please. With spacer please. atorvastatin (LIPITOR) 20 mg tablet Take 1 tablet by mouth once daily. omeprazole (PRILOSEC) 40 mg capsule Take 40 mg by mouth. acetaminophen (TYLENOL EXTRA STRENGTH) 500 mg tablet Take 2 tablets by mouth every 6 hours as needed for pain. doxycycline (VIBRA-TABS) 100 mg tablet Take 1 tablet by mouth two times a day. FAMILY HISTORY Problem Relation Age of Onset Diabetes Mother Hypertension Mother Cancer Mother Coronary Artery Disease Father myesthenia gravis Heart Father By-pass COPD Brother other (Smoker) Brother Social History Tobacco Use Smoking status: Every Day Packs/day: 1.00 Years: 20.00 Additional pack years: 0.00 Total pack years: 20.00 Types: Cigarettes Smokeless tobacco: Never Tobacco comments: Down to a couple cigarettes a day Vaping Use Vaping Use: Never used Substance Use Topics Alcohol use: Not Currently Comment: quit drinking 01/25 (more content not included)... [facility] 01-05-2023 Miscellaneous Notes Prescription below is requesting 90 day supply. Patient has been identified by name and date of : Yes, Provider Dr. Girard Date 01/05/23 Time 11:53 am Pharmacy phones for refill(s): Requested Prescriptions Pending Prescriptions Disp Refills FLUoxetine (PROZAC) 40 mg capsule [Pharmacy Med Name: FLUOXETINE HCL 40 MG CAPSULE] 180 capsule 5 Sig: take 2 capsules by mouth once daily Date of last office visit in primary care: 12/20/2022 Date of next office visit in primary care: 01/10/2023 Last 2 Encounter Wt Readings: Date: Wt: 12/20/2022 44.9 kg (99 lb) 12/02/2022 44.6 kg (98 lb 6.4 oz) Previous labs/tests for medication: Not applicable Thank you. Jacob Rosenbaum LPN. documented in this encounter [facility] 01-03-2023 Miscellaneous Notes Spoke with patient. Given message from provider's office. Patient verbalizes understanding. Scheduled appointment for patient next Tuesday01/10/23 per patient request due to transportation issues. Tejal Lin RN TC to patient. Mailbox if full. Will try again later. I can refill her Doxycycline for the chronic rash however she needs to at least be evaluated in the office for prolonged fever of unknown cause so the most appropriate tests can be ordered Nely Flores APRN.HOME CARE NURSE Patient calls to ask if provider would give her a refill on the doxycycline for the rash that she has had for 2 years. She reports that the doxycycline has improved it more than anything she has tried so far. She also wanted to let provider know that she continues feeling very ill with the same illness she was seen on 12/20/2022 for. She reports severe ear pain/pressure, fatigue, and fever of 100. Patient didn't go to EC as previously mentioned because transportation is still an issue for EC or an OV. Patient reports she felt so bad Tuesday night she almost called 911. The ear pain is causing her CP and SOB at times. Notified patient that for those symptoms we would definitely want her to go to ED for evaluation. She said that she is not going to the ED because when she does they ask her why her PCP is not treating her. Patient asking provider for further treatment without an OV. Please review and advise, Kia Gottlieb RN documented in this encounter [facility] 12-24-2022 Miscellaneous Notes Patient notified, verbalized understanding. She states that she will try to go to express care when she finds a ride. If she is getting this much worse than she needs an appointment in the office or go to [facility] for an evaluation in order to determine the most appropriate work-up and treatment if indicated. If symptoms are severe she should go to the ER Nely Flores APRN.[place] Patient calls back and states that she continues to feel worse. Patient states that her temperature is 101. Patient states that she has been taking tylenol which does not bring down fever. Patient wanting to know what else she can do? Advised patient that if she is feeling worse and if her temperature keeps getting higher then she needs to go to ER to be evaluated. Patient reports that she will be told to contact her primary care doctor and ER will not do anything for her. Patient also states that she has no way to ER. Patient asking for provider to advise on this. Please review and advise, Racheal Wilder RN Pt called to give an update. Pt was seen last in the office on 12-20-22. Pt reports she is no better on the ATB. Pt reports she is fatigued, running a fever of 100, when she stands up feels like she is going to collapse.Reports her body feels like jelly. Pt is trying to get fluids in. Pt does not have anyway to come back in for apt. No transportation. Pt denies: chest pain, SOB or difficulty breathing. Please advise pt. Jacob Rosenbaum LPN documented in this encounter [facility] 12-20-2022 Note HNO ID: [id number] Author: Nely Flores APRN.HOME CARE NURSE Service: ? Author Type: Nurse Practitioner Type: Progress Notes Filed: 12/21/2022 8:05 AM Note Text: CC: Patient presents with: F/U 3 Month: Seen in express care a couple of times per pt. HPI Barbara Hernandez is a 57 year old female who presents today for above. She was seen in [facility] twice last month for URI, ear infection, ear pain and chronic right hip pain. She was treated with Cefdinir and prednisone. Patient reports she still feels very ill, fatigued and feverish. Both ears are still painful along with pressure in her head. She has a chronic rash for over two years. She was evaluated by hedge fund manager some time ago and was on injections but her insurance would no longer cover them. Patient reports every time she is ill the rash flares up in various locations, this time it is the most severe on her buttocks. Rash is painful and a little itchy. Chronic pains in the back and hips secondary to spondylosis, osteoarthritis and fibromyalgia are not well controlled. She has seen a few different pain management specialists and spine medicine, no treatments have offered much relief. She does get minor relief with Flexeril however but not enough to manage her pain effectively. Review of Systems Constitutional: Positive for chills, diaphoresis, fatigue and fever. Negative for unexpected weight change. HENT: Positive for congestion, ear pain and sinus pressure. Respiratory: Negative for cough, shortness of breath and wheezing. Cardiovascular: Negative for chest pain, palpitations and leg swelling. PAST MEDICAL HISTORY Diagnosis Date Anxiety disorder 06/23/2011 Chronic obstructive pulmonary disease (COPD) ([facility]) Complicated grief 06/23/2011 Depression Depression, major 04/23/2010 Emphysema/COPD ([facility]) 04/23/2010 Fibromyalgia 03/28/[address] Bergman Hot flashes 02/28/2013 Inflammatory polyarthropathy ([facility]) 03/28/[address] Bergman Marcia - Freedman tear 09/2010 received transfusion Post-traumatic stress disorder 06/03/2010 RSD (reflex sympathetic dystrophy) 03/28/2013 Right upper extremity screening for Type 2 diabetes mellitus without complication (HCC) 07/16/2016 PAST SURGICAL HISTORY Procedure Laterality Date ESOPHAGOGASTRODUODENOSCOPY TRANSORAL DIAGNOSTIC 10/07/2010 EGD [facility] inpt n /H-pylori negative LAMINOTOMY (HEMILAMINECTOMY), WITH DECOMPRESSION OF NERVE ROOT(S) Right 03/12/2020 L5-S1 discectomy, [facility], Dr. Bety Spicer LIG/TRNSXJ FLP TUBE ABDL/VAG APPR UNI/BI Tubal ligation PAST SURGICAL HISTORY OF 07/24/2018 Complete hysterectomy PAST SURGICAL HISTORY OF Right carpal tunnel ALLERGIES Cortisone; Latex, Natural Rubber; Penicillins; Iv Contrast [Iodine]; Meloxicam; Entex [Phenylephrine-Guaifenesin]; and Naprosyn [Naproxen] MEDICATIONS gabapentin (NEURONTIN) 600 mg tablet Take 1 tablet by mouth three times daily for 30 days. cyclobenzaprine (FLEXERIL) 10 mg tablet Take 1 tablet by mouth three times daily as needed for muscle spasm. FLUoxetine (PROZAC) 40 mg capsule Take 2 capsules by mouth once daily. albuterol HFA (PROVENTIL HFA, VENTOLIN HFA) 90 mcg/actuation inhaler Inhale 2 Puffs as instructed every 4 hours as needed for wheezing/shortness of breath. Patient requests VENTOLIN please. With spacer please. atorvastatin (LIPITOR) 20 mg tablet Take 1 tablet by mouth once daily. omeprazole (PRILOSEC) 40 mg capsule Take 40 mg by mouth. acetaminophen (TYLENOL EXTRA STRENGTH) 500 mg tablet Take 2 tablets by mouth every 6 hours as needed for pain. FAMILY HISTORY Problem Relation Age of Onset Diabetes Mother Hypertension Mother Cancer Mother Coronary Artery Disease Father myesthenia gravis Heart Father By-pass COPD Brother other (Smoker) Brother Social History Tobacco Use Smoking status: Every Day Packs/day: 1.00 Years: 20.00 Additional pack years: 0.00 Total pack years: 20.00 Types: Cigarettes Smokeless tobacco: Never Tobacco comments: Down to a couple cigarettes a day Vaping Use Vaping Use: Never used Substance Use Topics Alcohol use: Not Currently Comment: quit drinking 01/25/18 Drug use: No BP 130/78 Pulse 88 Temp 37.6 ?C (99.6 ?F) Resp 18 Wt 44.9 kg (99 lb) LMP 08/06/2014 (LMP Unknown) SpO2 98% BMI 15.98 kg/m? Physical Exam Vitals reviewed. Constitutional: General: She is not in acute distress. Appearance: She is not ill-appearing. HENT: Right Ear: Tympanic membrane, ear canal and external ear normal. Left Ear: Tympanic membrane, ear canal and external ear normal. Nose: No nasal tenderness, mucosal edema or congestion. Mouth/Throat: Lips: [place]. Mouth: Mucous membranes are moist. No oral lesions. Pharynx: Oropharynx is clear. Eyes: Conjunctiva/sclera: Conjunctivae normal. Cardiovascular: Rate and Rhythm: Normal rate and regular rhythm. Heart sounds: Normal heart sounds. No murmur heard. Pu (more content not included)... [facility] 12-14-2022 Miscellaneous Notes Patient returned call and said she has no transportation and is asking for an afternoon appt to be scheduled for a 3 month follow up and have transportation set up through the social services coordinator. Patient did not want to be transferred to central scheduler to get this appt set up. 2nd call attempt, pt struggles with transportation, will call again later 1st attempt unable to leave a message over due for 3 month follow up Overdue for follow-up Nely Flores APRN.CNP Patient has been identified by name and date of : Yes, Provider Date Time Patient phones for refill(s): Requested Prescriptions Pending Prescriptions Disp Refills gabapentin (NEURONTIN) 600 mg tablet 90 tablet 0 Sig: Take 1 tablet by mouth three times daily for 30 days. cyclobenzaprine (FLEXERIL) 10 mg tablet 30 tablet 0 Sig: Take 1 tablet by mouth three times daily as needed for muscle spasm. FLUoxetine (PROZAC) 40 mg capsule 60 capsule 0 Sig: Take 2 capsules by mouth once daily. Date of last office visit with pcp: Date of last office visit in primary care: 04/12/22 Last 2 Encounter Wt Readings: Date: Wt: 12/02/2022 44.6 kg (98 lb 6.4 oz) 11/22/2022 44.9 kg (99 lb) Previous labs/tests for medication: Not applicable Please advise. Thank you. Tejal Lin RN documented in this encounter [facility] 2022 Note Patient Outreach (IN [facility]) ---- BARBARA HERNANDEZ ([id number]) 1965 F CHT Date Time Provider Department 12/08/22 PAOLO GIRARD During your visit today, we recorded the following information about you: Allergies As of Date: 2022 Noted Allergy Reaction CORTISONE 08/14/2014 4 - Hives LATEX, NATURAL RUBBER 04/23/2010 2 - Rash PENICILLINS 12/21/2004 4 - Hives IV CONTRAST (IODINE) 09/16/2021 14 - Other: See Comments Comments: Patient reports she has had reactions to contrast on occasion, not consistently, and no specific reaction was noted MELOXICAM 08/13/2021 8 - GI Upset ENTEX (PHENYLEPHRINE-GUAIFENESIN) 01/04/2005 5 - Intolerance NAPROSYN (NAPROXEN) 12/21/2004 2 - Rash Date Reviewed: 12/02/2022 Reviewed by: Rufina Galloway APRN.HOME CARE NURSE - Fully Assessed Visit Diagnosis:Encounter for screening mammogram for breast cancer [Z12.31] Order(s):[facility] SCREENING [[id number]] Order #: [id number] FUTURE Prescriptions as of 12/13/2022 - gabapentin (NEURONTIN) 600 mg tablet Take 1 tablet by mouth three times daily for 30 days. - cyclobenzaprine (FLEXERIL) 10 mg tablet Take 1 tablet by mouth three times daily as needed for muscle spasm. - FLUoxetine (PROZAC) 40 mg capsule Take 2 capsules by mouth once daily. - albuterol HFA (PROVENTIL HFA, VENTOLIN HFA) 90 mcg/actuation inhaler Inhale 2 Puffs as instructed every 4 hours as needed for wheezing/shortness of breath. Patient requests VENTOLIN please. With spacer please. - atorvastatin (LIPITOR) 20 mg tablet Take 1 tablet by mouth once daily. - omeprazole (PRILOSEC) 40 mg capsule Take 40 mg by mouth. - acetaminophen (TYLENOL EXTRA STRENGTH) 500 mg tablet Take 2 tablets by mouth every 6 hours as needed for pain. Problem List As Of Date 2022 Noted Resolved Depression, major [F32.9] 04/23/2010 Emphysema/COPD (HCC) [J43.9] 04/23/2010 Cigarette smoker [F17.210] 05/05/2010 Post-traumatic stress disorder [F43.10] 06/03/2010 Complicated grief [F43.21] 06/23/2011 02/02/2021 Anxiety disorder [F41.9] 06/23/2011 Hip pain [M25.559] 02/07/2013 01/11/2022 Hot flashes [R23.2] 02/28/2013 02/27/2021 RSD (reflex sympathetic dystrophy) [G90.50] 03/28/2013 Fibromyalgia [M79.7] 03/28/2013 Inflammatory polyarthropathy (HCC) [M06.4] 03/28/2013 01/11/2022 NO SHOW [[id number]] 09/04/2014 12/10/2015 Nightmares associated with chronic post-traumat*09/21/2017 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 Author Type: Physician Scrap Drop Crane Operator Type: Progress Notes Filed: 12/02/2022 11:14 AM Note Text: This note was created using [employer]. Subjective Barbara Hernandez is a 56 year old female. HPI Presents with a chief complaint of chronic ear pain and chronic right hip and buttock pain. She states she was sitting or at the hospital on a hard chair for 3 days with her boyfriend and thinks that flared up her hip and buttock pain. She has seen primary care, pain management for this previously. Denies any falls or injury. Patient also complaining of bilateral ear pressure. She was seen on and given Omnicef for an ear infection. She had an URI at that point which has improved. Her COVID test was negative. Denies drainage out of her ears. No trouble hearing. Feels like pressure. Review of Systems Constitutional: Negative. HENT: Positive for ear pain and sinus pressure. Negative for rhinorrhea. Respiratory: Negative. Cardiovascular: Negative. Gastrointestinal: Negative. Musculoskeletal: Right hip and buttock pain All other systems reviewed and are negative. PAST MEDICAL HISTORY Diagnosis Date Anxiety disorder 06/23/2011 Chronic obstructive pulmonary disease (COPD) ([facility]) Complicated grief 06/23/2011 Depression Depression, major 04/23/2010 Emphysema/COPD ([facility]) 04/23/2010 Fibromyalgia 03/28/[address] Bergman Hot flashes 02/28/2013 Inflammatory polyarthropathy ([facility]) 03/28/[address] Bergman Marcia - [place] tear 09/2010 received transfusion Post-traumatic stress disorder 06/03/2010 RSD (reflex sympathetic dystrophy) 03/28/2013 Right upper extremity screening for Type 2 diabetes mellitus without complication ([facility]) 07/16/2016 Current Outpatient Medications Medication Sig Dispense Refill predniSONE (DELTASONE) 20 mg tablet Take 2 tablets by mouth once daily for 5 days. 10 tablet 0 gabapentin (NEURONTIN) 600 mg tablet Take 1 tablet by mouth three times daily for 30 days. 90 tablet 0 FLUoxetine (PROZAC) 40 mg capsule Take 2 capsules by mouth once daily. 60 capsule 0 albuterol HFA (PROVENTIL HFA, VENTOLIN HFA) 90 mcg/actuation inhaler Inhale 2 Puffs as instructed every 4 hours as needed for wheezing/shortness of breath. Patient requests VENTOLIN please. With spacer please. 18 g 1 cyclobenzaprine (FLEXERIL) 10 mg tablet Take 1 tablet by mouth three times daily as needed for muscle spasm. 30 tablet 0 atorvastatin (LIPITOR) 20 mg tablet Take 1 tablet by mouth once daily. 30 tablet 0 omeprazole (PRILOSEC) 40 mg capsule Take 40 mg by mouth. acetaminophen (TYLENOL EXTRA STRENGTH) 500 mg tablet Take 2 tablets by mouth every 6 hours as needed for pain. 180 tablet 1 No current facility-administered medications for this visit. PAST SURGICAL HISTORY Procedure Laterality Date ESOPHAGOGASTRODUODENOSCOPY TRANSORAL DIAGNOSTIC 10/07/2010 EGD [facility] inpt n /H-pylori negative LAMINOTOMY (HEMILAMINECTOMY), WITH DECOMPRESSION OF NERVE ROOT(S) Right 03/12/2020 L5-S1 discectomy, [facility], Dr. Bety Spicer LIG/TRNSXJ FLP TUBE ABDL/VAG APPR UNI/BI Tubal ligation PAST SURGICAL HISTORY OF 07/24/2018 Complete hysterectomy PAST SURGICAL HISTORY OF Right carpal tunnel FAMILY HISTORY Problem Relation Age of Onset Diabetes Mother Hypertension Mother Cancer Mother Coronary Artery Disease Father myesthenia gravis Heart Father By-pass COPD Brother other (Smoker) Brother Social History Tobacco Use Smoking status: Every Day Packs/day: 1.00 Years: 20.00 Additional pack years: 0.00 Total pack years: 20.00 Types: Cigarettes Smokeless tobacco: Never Tobacco comments: Down to a couple cigarettes a day Vaping Use Vaping Use: Never used Substance Use Topics Alcohol use: Not Currently Comment: quit drinking 01/25/18 Drug use: No Objective BP 137/90 Pulse 101 Temp 36.8 ?C (98.3 ?F) Resp 18 Wt 44.6 kg (98 lb 6.4 oz) LMP 08/06/2014 (LMP Unknown) SpO2 97% BMI 15.88 kg/m? Physical Exam Vitals reviewed. Constitutional: Appearance: Normal appearance. HENT: Head: Normocephalic and atraumatic. Right Ear: Tympanic membrane, ear canal and external ear normal. Left Ear: Tympanic membrane, ear canal and external ear normal. Nose: Nose normal. Mouth/Throat: Mouth: Mucous membranes are moist. Pharynx: Oropharynx is clear. Cardiovascular: Rate and Rhythm: Normal rate and regular rhythm. Heart sounds: Normal heart sounds. Pulmonary: Effort: Pulmonary effort is normal. Breath sounds: Normal breath sounds. Musculoskeletal: Comments: Patient tender along the right buttocks. Tender when she sits. No rash noted. Able to ambulate. Skin: General: Skin is warm and dry. Neurological: Mental Status: She is alert. Assessment and Plan ASSESSMENT/PLAN: 1. Chronic ear pain, bilateral - ICD9: 388.70, 338.29, ICD10: H92.03, G89.29 (primary diagnosis) (more content not included)... [facility] 12-02-2022 History of Present illness Narrative This note was created using [employer]. Subjective Barbara Hernandez is a 56 year old female. HPI Presents with a chief complaint of chronic ear pain and chronic right hip and buttock pain. She states she was sitting or at the hospital on a hard chair for 3 days with her boyfriend and thinks that flared up her hip and buttock pain. She has seen primary care, pain management for this previously. Denies any falls or injury. Patient also complaining of bilateral ear pressure. She was seen on 911 and given Omnicef for an ear infection. She had an URI at that point which has improved. Her COVID test was negative. Denies drainage out of her ears. No trouble hearing. Feels like pressure. Review of Systems Constitutional: Negative. HENT: Positive for ear pain and sinus pressure. Negative for rhinorrhea. Respiratory: Negative. Cardiovascular: Negative. Gastrointestinal: Negative. Musculoskeletal: Right hip and buttock pain All other systems reviewed and are negative. PAST MEDICAL HISTORY Diagnosis Date Anxiety disorder 06/23/2011 Chronic obstructive pulmonary disease (COPD) ([facility]) Complicated grief 06/23/2011 Depression Depression, major 04/23/2010 Emphysema/COPD (HCC) 04/23/2010 Fibromyalgia 03/28/[address] Bergman Hot flashes 02/28/2013 Inflammatory polyarthropathy ([facility]) 03/28/[address] Bergman Marcia - [place] tear 09/2010 received transfusion Post-traumatic stress disorder 06/03/2010 RSD (reflex sympathetic dystrophy) 03/28/2013 Right upper extremity screening for Type 2 diabetes mellitus without complication ([facility]) 07/16/2016 Current Outpatient Medications Medication Sig Dispense Refill predniSONE (DELTASONE) 20 mg tablet Take 2 tablets by mouth once daily for 5 days. 10 tablet 0 gabapentin (NEURONTIN) 600 mg tablet Take 1 tablet by mouth three times daily for 30 days. 90 tablet 0 FLUoxetine (PROZAC) 40 mg capsule Take 2 capsules by mouth once daily. 60 capsule 0 albuterol HFA (PROVENTIL HFA, VENTOLIN HFA) 90 mcg/actuation inhaler Inhale 2 Puffs as instructed every 4 hours as needed for wheezing/shortness of breath. Patient requests VENTOLIN please. With spacer please. 18 g 1 cyclobenzaprine (FLEXERIL) 10 mg tablet Take 1 tablet by mouth three times daily as needed for muscle spasm. 30 tablet 0 atorvastatin (LIPITOR) 20 mg tablet Take 1 tablet by mouth once daily. 30 tablet 0 omeprazole (PRILOSEC) 40 mg capsule Take 40 mg by mouth. acetaminophen (TYLENOL EXTRA STRENGTH) 500 mg tablet Take 2 tablets by mouth every 6 hours as needed for pain. 180 tablet 1 No current facility-administered medications for this visit. PAST SURGICAL HISTORY Procedure Laterality Date ESOPHAGOGASTRODUODENOSCOPY TRANSORAL DIAGNOSTIC 10/07/2010 EGD [facility] inpt n /H-pylori negative LAMINOTOMY (HEMILAMINECTOMY), WITH DECOMPRESSION OF NERVE ROOT(S) Right 03/12/2020 L5-S1 discectomy, [facility], Dr. Bety Spicer LIG/TRNSXJ FLP TUBE ABDL/VAG APPR UNI/BI Tubal ligation PAST SURGICAL HISTORY OF 07/24/2018 Complete hysterectomy PAST SURGICAL HISTORY OF Right carpal tunnel FAMILY HISTORY Problem Relation Age of Onset Diabetes Mother Hypertension Mother Cancer Mother Coronary Artery Disease Father myesthenia gravis Heart Father By-pass COPD Brother other (Smoker) Brother Social History Tobacco Use Smoking status: Every Day Packs/day: 1.00 Years: 20.00 Additional pack years: 0.00 Total pack years: 20.00 Types: Cigarettes Smokeless tobacco: Never Tobacco comments: Down to a couple cigarettes a day Vaping Use Vaping Use: Never used Substance Use Topics Alcohol use: Not Currently Comment: quit drinking 01/25/18 Drug use: No Objective BP 137/90 Pulse 101 Temp 36.8 C (98.3 F) Resp 18 Wt 44.6 kg (98 lb 6.4 oz) LMP 08/06/2014 (LMP Unknown) SpO2 97% BMI 15.88 kg/m Physical Exam Vitals reviewed. Constitutional: Appearance: Normal appearance. HENT: Head: Normocephalic and atraumatic. Right Ear: Tympanic membrane, ear canal and external ear normal. Left Ear: Tympanic membrane, ear canal and external ear normal. Nose: Nose normal. Mouth/Throat: Mouth: Mucous membranes are moist. Pharynx: Oropharynx is clear. Cardiovascular: Rate and Rhythm: Normal rate and regular rhythm. Heart sounds: Normal heart sounds. Pulmonary: Effort: Pulmonary effort is normal. Breath sounds: Normal breath sounds. Musculoskeletal: Comments: Patient tender along the right buttocks. Tender when she sits. No rash noted. Able to ambulate. Skin: General: Skin is warm and dry. Neurological: Mental Status: She is alert. Assessment and Plan ASSESSMENT/PLAN: 1. Chronic ear pain, bilateral - ICD9: 388.70, 338.29, ICD10: H92.03, G89.29 (primary diagnosis) Likely eustachian tube dysfunction. Discussed trying Flonase [id number]. 2. Hip pain, chronic, right - ICD9: 719.45, 338.29, ICD10: M25.551, G89.29 She has had chronic hip and buttock pain, this is nothing new. She has tried Tylenol which does not seem to help. Discussed using prednisone short course. She was receptive to this. Follow-up with PCP or pain management. Ramiro Ayala PA-C documented in this encounter [facility] 12-01-2022 Miscellaneous Notes Last OV 04/02/2022 faxed. Diann Benitez LPN [employer] is calling on behalf of the patient, verfied patient by name and . They are requesting that the patients last appointment information be faxed to them including dx codes. The fax # is [phone] Carley Crook documented in this encounter [facility] 11-22-2022 Note HNO ID: [id number] Author: Annie Whitfield APRN.HOME CARE NURSE Service: ? Author Type: Nurse Practitioner Type: Progress Notes Filed: 11/22/2022 2:11 PM Note Text: CC: Patient presents with: Nasal Congestion: drainage, fatigue, left ear pain, eyes burning, rash and chills x 3 days HPI: Barbara Hernandez is a 56 year old female who presents to the office with complaint of head congestion, cough, nonproductive, sinus symptoms, ear symptoms, and chills for a few days. Symptoms are staying the same. Associated symptoms includes ear pressure . Denies nausea, vomiting , and diarrhea. Treatments tried include nothing so far. with no relief of symptoms. Sick contacts: unknown. History of asthma, frequent episodes of bronchitis, chronic bronchitis, bronchiectasis or COPD: No Smoker: No Seasonal/environmental allergies: No The ROS is otherwise negative. The patient's pmh, medications, allergies, and past visits are reviewed. PHYSICAL EXAM: BP 120/68 Pulse 96 Temp 36.8 ?C (98.2 ?F) Resp 16 Wt 44.9 kg (99 lb) LMP 08/06/2014 (LMP Unknown) SpO2 99% BMI 15.98 kg/m? General appearance: alert, cooperative, pleasant, in no acute distress Head: Normocephalic Eyes: EOM's intact, conjunctiva pink and moist, no icterus, sclera white, non-injected Ears: Right ear: External ear/canal- Normal, TM -erythema and bulging. Left ear: External ear/canal- Normal, TM - clear with good landmarks Oropharynx:moist without lesions Heart: Negative. RRR without obvious murmur, gallop, or rubs. No ectopy. Lungs: clear to auscultation, without rales or wheeze, good air exchange PAST MEDICAL HISTORY Diagnosis Date Anxiety disorder 06/23/2011 Chronic obstructive pulmonary disease (COPD) ([facility]) Complicated grief 06/23/2011 Depression Depression, major 04/23/2010 Emphysema/COPD ([facility]) 04/23/2010 Fibromyalgia 03/28/[address] Bergman Hot flashes 02/28/2013 Inflammatory polyarthropathy ([facility]) 03/28/[address] Bergman Marcia - [place] tear 09/2010 received transfusion Post-traumatic stress disorder 06/03/2010 RSD (reflex sympathetic dystrophy) 03/28/2013 Right upper extremity screening for Type 2 diabetes mellitus without complication ([facility]) 07/16/2016 PAST SURGICAL HISTORY Procedure Laterality Date ESOPHAGOGASTRODUODENOSCOPY TRANSORAL DIAGNOSTIC 10/07/2010 EGD [facility] inpt n /H-pylori negative LAMINOTOMY (HEMILAMINECTOMY), WITH DECOMPRESSION OF NERVE ROOT(S) Right 03/12/2020 L5-S1 discectomy, [facility], Dr. Bety Spicer LIG/TRNSXJ FLP TUBE ABDL/VAG APPR UNI/BI Tubal ligation PAST SURGICAL HISTORY OF 07/24/2018 Complete hysterectomy PAST SURGICAL HISTORY OF Right carpal tunnel ALLERGIES Cortisone; Latex, Natural Rubber; Penicillins; Iv Contrast [Iodine]; Meloxicam; Entex [Phenylephrine-Guaifenesin]; and Naprosyn [Naproxen] MEDICATIONS gabapentin (NEURONTIN) 600 mg tablet Take 1 tablet by mouth three times daily for 30 days. FLUoxetine (PROZAC) 40 mg capsule Take 2 capsules by mouth once daily. albuterol HFA (PROVENTIL HFA, VENTOLIN HFA) 90 mcg/actuation inhaler Inhale 2 Puffs as instructed every 4 hours as needed for wheezing/shortness of breath. Patient requests VENTOLIN please. With spacer please. cyclobenzaprine (FLEXERIL) 10 mg tablet Take 1 tablet by mouth three times daily as needed for muscle spasm. atorvastatin (LIPITOR) 20 mg tablet Take 1 tablet by mouth once daily. omeprazole (PRILOSEC) 40 mg capsule Take 40 mg by mouth. acetaminophen (TYLENOL EXTRA STRENGTH) 500 mg tablet Take 2 tablets by mouth every 6 hours as needed for pain. cefdinir (OMNICEF) 250 mg/5 mL suspension Take 6 mL by mouth twice daily for 7 days. FAMILY HISTORY Problem Relation Age of Onset Diabetes Mother Hypertension Mother Cancer Mother Coronary Artery Disease Father myesthenia gravis Heart Father By-pass COPD Brother other (Smoker) Brother Social History Tobacco Use Smoking status: Every Day Packs/day: 1.00 Years: 20.00 Additional pack years: 0.00 Total pack years: 20.00 Types: Cigarettes Smokeless tobacco: Never Tobacco comments: Down to a couple cigarettes a day Vaping Use Vaping Use: Never used Substance Use Topics Alcohol use: Not Currently Comment: quit drinking 01/25/18 Drug use: No ASSESSMENT/PLAN: 1. URI, acute - ICD9: 465.9, ICD10: J06.9 (primary diagnosis) - COVID AND INFLUENZA A/B AND RSV NAAT, ROUTINE 2. Acute otitis media, left - ICD9: 382.9, ICD10: H66.92 - CEFDINIR 250 MG/5 ML ORAL SUSPENSION Prescription instructions reviewed with patient as applicable. Potential red flag symptoms discussed with the patient. Reviewed appropriate action plan to take if red flag symptoms occur. Patient agreeable to treatment plan. Annie Whitfield APRN.[facility] 11-22-2022 History of Present illness Narrative CC: Patient presents with: Nasal Congestion: drainage, fatigue, left ear pain, eyes burning, rash and chills x 3 days HPI: Barbara Hernandez is a 56 year old female who presents to the office with complaint of head congestion, cough, nonproductive, sinus symptoms, ear symptoms, and chills for a few days. Symptoms are staying the same. Associated symptoms includes ear pressure . Denies nausea, vomiting , and diarrhea. Treatments tried include nothing so far. with no relief of symptoms. Sick contacts: unknown. History of asthma, frequent episodes of bronchitis, chronic bronchitis, bronchiectasis or COPD: No Smoker: No Seasonal/environmental allergies: No The ROS is otherwise negative. The patient's pmh, medications, allergies, and past visits are reviewed. PHYSICAL EXAM: BP 120/68 Pulse 96 Temp 36.8 C (98.2 F) Resp 16 Wt 44.9 kg (99 lb) LMP 08/06/2014 (LMP Unknown) SpO2 99% BMI 15.98 kg/m General appearance: alert, cooperative, pleasant, in no acute distress Head: Normocephalic Eyes: EOM's intact, conjunctiva pink and moist, no icterus, sclera white, non-injected Ears: Right ear: External ear/canal- Normal, TM -erythema and bulging. Left ear: External ear/canal- Normal, TM - clear with good landmarks Oropharynx:moist without lesions Heart: Negative. RRR without obvious murmur, gallop, or rubs. No ectopy. Lungs: clear to auscultation, without rales or wheeze, good air exchange PAST MEDICAL HISTORY Diagnosis Date Anxiety disorder 06/23/2011 Chronic obstructive pulmonary disease (COPD) ([facility]) Complicated grief 06/23/2011 Depression Depression, major 04/23/2010 Emphysema/COPD ([facility]) 04/23/2010 Fibromyalgia 03/28/[address] Bergman Hot flashes 02/28/2013 Inflammatory polyarthropathy ([facility]) 03/28/[address] Bergman Marcia - [place] tear 09/2010 received transfusion Post-traumatic stress disorder 06/03/2010 RSD (reflex sympathetic dystrophy) 03/28/2013 Right upper extremity screening for Type 2 diabetes mellitus without complication ([facility]) 07/16/2016 PAST SURGICAL HISTORY Procedure Laterality Date ESOPHAGOGASTRODUODENOSCOPY TRANSORAL DIAGNOSTIC 10/07/2010 EGD [facility] inpt n /H-pylori negative LAMINOTOMY (HEMILAMINECTOMY), WITH DECOMPRESSION OF NERVE ROOT(S) Right 03/12/2020 L5-S1 discectomy, [facility], Dr. Bety Spicer LIG/TRNSXJ FLP TUBE ABDL/VAG APPR UNI/BI Tubal ligation PAST SURGICAL HISTORY OF 07/24/2018 Complete hysterectomy PAST SURGICAL HISTORY OF Right carpal tunnel ALLERGIES Cortisone; Latex, Natural Rubber; Penicillins; Iv Contrast [Iodine]; Meloxicam; Entex [Phenylephrine-Guaifenesin]; and Naprosyn [Naproxen] MEDICATIONS gabapentin (NEURONTIN) 600 mg tablet Take 1 tablet by mouth three times daily for 30 days. FLUoxetine (PROZAC) 40 mg capsule Take 2 capsules by mouth once daily. albuterol HFA (PROVENTIL HFA, VENTOLIN HFA) 90 mcg/actuation inhaler Inhale 2 Puffs as instructed every 4 hours as needed for wheezing/shortness of breath. Patient requests VENTOLIN please. With spacer please. cyclobenzaprine (FLEXERIL) 10 mg tablet Take 1 tablet by mouth three times daily as needed for muscle spasm. atorvastatin (LIPITOR) 20 mg tablet Take 1 tablet by mouth once daily. omeprazole (PRILOSEC) 40 mg capsule Take 40 mg by mouth. acetaminophen (TYLENOL EXTRA STRENGTH) 500 mg tablet Take 2 tablets by mouth every 6 hours as needed for pain. cefdinir (OMNICEF) 250 mg/5 mL suspension Take 6 mL by mouth twice daily for 7 days. FAMILY HISTORY Problem Relation Age of Onset Diabetes Mother Hypertension Mother Cancer Mother Coronary Artery Disease Father myesthenia gravis Heart Father By-pass COPD Brother other (Smoker) Brother Social History Tobacco Use Smoking status: Every Day Packs/day: 1.00 Years: 20.00 Additional pack years: 0.00 Total pack years: 20.00 Types: Cigarettes Smokeless tobacco: Never Tobacco comments: Down to a couple cigarettes a day Vaping Use Vaping Use: Never used Substance Use Topics Alcohol use: Not Currently Comment: quit drinking 01/25/18 Drug use: No ASSESSMENT/PLAN: 1. URI, acute - ICD9: 465.9, ICD10: J06.9 (primary diagnosis) - COVID & INFLUENZA A/B & RSV NAAT, ROUTINE 2. Acute otitis media, left - ICD9: 382.9, ICD10: H66.92 - CEFDINIR 250 MG/5 ML ORAL SUSPENSION Prescription instructions reviewed with patient as applicable. Potential red flag symptoms discussed with the patient. Reviewed appropriate action plan to take if red flag symptoms occur. Patient agreeable to treatment plan. Annie Whitfield APRN.CNP documented in this encounter [facility] 11-08-2022 Miscellaneous Notes Patient calls to request mammogram order be faxed to [facility]. Faxed to [phone] per request. Kia Gottlieb RN documented in this encounter [facility] 10-12-2022 History of Present illness Narrative POPULATION HEALTH NAVIGATION OUTREACH Action/FYI [facility] Care Gaps Outreach LAST OUTREACH: NA HEIDI Sent via680hart message Last OFFICE VISIT: 04/12/2022 return in 6 months around 10/10/2022 for a routine follow up with Dr Baker per note. Next OFFICE VISIT: Next 5 Appointments None ANNUAL WELLNESS EXAM Follow up visit over due since 10/10/2022 COLORECTAL CANCER SCREENING Never done MAMMOGRAM due on 11/06/2022 Encounter Closed. Patient Identified by Name and : NO Outreach Outcome/Action Unable to reach patient: Left message vIPtelahart message sent Did you use a PCP flex slot to schedule this appointment? N/A Reason for Outreach Care Gap or Scheduling/Wellness visits Payer: Payor: [facility] MEDICAID / Plan: [facility] MEDICAID / Product Type: Medicaid / Care Gap Reviewed:: Annual Wellness visit Follow-up appointment Breast Cancer screening Colorectal Cancer Screening Reminder: Reminder note to check Health Maintenance for items below Health Maintenance items due: COLORECTAL CANCER SCREENING Never done MAMMOGRAM due on 11/06/2022 PAP TESTING due on 04/02/2023 Navigation Signature: Darshana Small MA October 12, 2022 3:21 PM documented in this encounter [facility] 09-15-2022 Miscellaneous Notes Medication refill requested by Patient Please review and advise. Requested Prescriptions Pending Prescriptions Disp Refills FLUoxetine (PROZAC) 40 mg capsule 60 capsule 5 Sig: Take 2 capsules by mouth once daily. albuterol HFA (PROVENTIL HFA, VENTOLIN HFA) 90 mcg/actuation inhaler 18 g 1 Sig: Inhale 2 Puffs as instructed every 4 hours as needed for wheezing/shortness of breath. Patient requests VENTOLIN please. With spacer please. cyclobenzaprine (FLEXERIL) 10 mg tablet 30 tablet 5 Sig: Take 1 tablet by mouth three times daily as needed for muscle spasm. atorvastatin (LIPITOR) 20 mg tablet 30 tablet 0 Sig: Take 1 tablet by mouth once daily. Last encounter with this provider: 04/12/2022 Next appt: not scheduled yet Last 1 Encounter BP Readings: Date: BP: 04/23/2022 122/86 WBC (k/uL) Date Value 01/31/2013 11.74 (H) Hemoglobin (g/dL) Date Value 01/31/2013 14.5 Platelet Count (k/uL) Date Value 01/31/2013 467 (H) Glucose (mg/dL) Date Value 02/26/2021 88 BUN (mg/dL) Date Value 02/26/2021 21 Creatinine (mg/dL) Date Value 02/26/2021 0.68 Sodium (mmol/L) Date Value 02/26/2021 141 Potassium (mmol/L) Date Value 02/26/2021 4.8 Calcium (mg/dL) Date Value 02/26/2021 9.6 Alkaline Phosphatase (U/L) Date Value 01/31/2013 66 Bilirubin, Total (mg/dL) Date Value 01/31/2013 0.2 AST (U/L) Date Value 01/31/2013 27 ALT (U/L) Date Value 01/31/2013 24 Cholesterol, Total (mg/dL) Date Value 02/26/2021 224 (H) Triglyceride (mg/dL) Date Value 02/26/2021 105 TSH (uU/mL) Date Value 01/31/2013 1.820 Kay Gaston RN documented in this encounter [facility] 08-10-2022 Miscellaneous Notes Patient calling with several complaints, rash on her neck and having acid reflux from her gabapentin. Patient said she is having pain back and neck. She does not go to pain management any longer the injections do not help at all. Patient said the gabapentin is not really helping with the pain. Aware PCP is out of office this week. Offered appt with [employer]ER for 6/ and she said I will just go to the ER and hung up the phone. documented in this encounter [facility] 08-10-2022 History of Present illness Narrative ACM MALENA RN Action/FYI: Medication Adherence review completed per request of payer. NO PROVIDER ACTION REQUIRED Please see requests in the Summary/Findings section below Patient identified by name and date of . Patient Attributed To: QAE Payer: [facility] Reason for review or outreach: Medication Adherence Medication Adherence Review Details: Cholesterol Summary / Findings: Atorvastatin was due for refill on: 08/04/22 at [facility] #[id number] Action Taken: Data submitted to [employer] message to patient Other Contact made with patient: No, Chart review only. Signature: Trish Stringer RN documented in this encounter [facility] 05-18-2022 Miscellaneous Notes Patient notified via [employer]. Refilled for 30 days only. Please have patient do fasting labs ordered and schedule follow up in September for gabapentin refill. Patient has been identified by name and date of : Yes Patient phones for refill(s): Requested Prescriptions Pending Prescriptions Disp Refills atorvastatin (LIPITOR) 20 mg tablet [Pharmacy Med Name: ATORVASTATIN 20 MG TABLET] 90 tablet 5 Sig: take 1 tablet by mouth once daily Date of last office visit in primary care: 04/12/2022 No future scheduled. Called Patient, she did not want to schedule at this time will call when it gets closer to 6 months. Last 2 Encounter Wt Readings: Date: Wt: 04/23/2022 47.8 kg (105 lb 6.4 oz) 04/12/2022 48.1 kg (106 lb) Previous labs/tests for medication: Cholesterol: HDL Cholesterol (mg/dL) Date Value 02/26/2021 73 LDL Cholesterol (mg/dL) Date Value 02/26/2021 130 ALT (U/L) Date Value 01/31/2013 24 Non HDL Cholesterol (mg/dL) Date Value 02/26/2021 151 Please advise. Thank you. Diann Benitez LPN documented in this encounter [facility] 04-23-2022 History of Present illness Narrative Radiology Service Progress Note PATIENT NAME: Barbara Hernandez DATE OF SERVICE: April 23, 2022 TIME: 9:32 AM PATIENT IDENTITY VERIFICATION COMPLETED USING TWO (2) IDENTIFIERS: Name and Date of confirmed by patient verbally. FALL SCREENING: Has the patient had 2 falls in the last year or 1 fall with injury or currently using an Ambulatory Assistive Device (Walker, Cane, Wheelchair, Crutches, etc.)? No PATIENT GENDER DATA: Female. status: : No status: NO. PATIENT RELEVANT IMPLANT DATA REVIEWED: Not Applicable RADIOLOGY DEPARTMENT: General X-ray: Exam(s) Completed: Upper Extremity X-Ray(s): Wrist, left PERIPHERAL IV DATA: Not applicable SIGNED BY: RT Waqas(R) April 23, 2022 9:32 AM documented in this encounter [facility] 04-12-2022 History of Present illness Narrative CC: Patient presents with: F/U 3 Month HPI Barbara Hernandez is a 56 year old female who presents today for above. Chronic pain in her low back and tailbone are still an issue. She was referred to spine medicine at one point since she reportedly wasn't getting any where with pain management. Patient doesn't recall this and upset she was referred to spine medicine when she already has a spine surgeon. She was recently in the ER and was given Flexeril which patient reports does provide partial relief, requesting a refill. She is also on Gabapentin 600 mg TID. Prozac increased to 40 mg daily for anxiety a few months ago, she hasn't noticed much difference. COPD is stable, fur storage clerk is Dr. Corral. REVIEW OF SYSTEMS See HPI PAST MEDICAL HISTORY Diagnosis Date Anxiety disorder 06/23/2011 Chronic obstructive pulmonary disease (COPD) (HCC) Complicated grief 06/23/2011 Depression Depression, major 04/23/2010 Emphysema/COPD (HCC) 04/23/2010 Fibromyalgia 03/28/[address] Bergman Hot flashes 02/28/2013 Inflammatory polyarthropathy (HCC) 03/28/[address] Bergman Marcia - Fre[place]man tear 09/2010 received transfusion Post-traumatic stress disorder 06/03/2010 RSD (reflex sympathetic dystrophy) 03/28/2013 Right upper extremity screening for Type 2 diabetes mellitus without complication (HCC) 07/16/2016 PAST SURGICAL HISTORY Procedure Laterality Date ESOPHAGOGASTRODUODENOSCOPY TRANSORAL DIAGNOSTIC 10/07/2010 EGD [facility] inpt n /H-pylori negative LAMINOTOMY (HEMILAMINECTOMY), WITH DECOMPRESSION OF NERVE ROOT(S) Right 03/12/2020 L5-S1 discectomy, [facility], Dr. Bety Spicer LIG/TRNSXJ FLP TUBE ABDL/VAG APPR UNI/BI Tubal ligation PAST SURGICAL HISTORY OF 07/24/2018 Complete hysterectomy PAST SURGICAL HISTORY OF Right carpal tunnel ALLERGIES Cortisone; Latex, Natural Rubber; Penicillins; Iv Contrast [Iodine]; Meloxicam; Entex [Phenylephrine-Guaifenesin]; and Naprosyn [Naproxen] MEDICATIONS omeprazole (PRILOSEC) 40 mg capsule Take 40 mg by mouth. atorvastatin (LIPITOR) 20 mg tablet Take 1 tablet by mouth once daily. albuterol HFA (PROVENTIL HFA, VENTOLIN HFA) 90 mcg/actuation inhaler Inhale 2 Puffs as instructed every 4 hours as needed for wheezing/shortness of breath. Patient requests VENTOLIN please. With spacer please. FLUoxetine (PROZAC) 40 mg capsule Take 2 capsules by mouth once daily. gabapentin (NEURONTIN) 600 mg tablet Take 1 tablet by mouth three times daily for 180 days. acetaminophen (TYLENOL EXTRA STRENGTH) 500 mg tablet Take 2 tablets by mouth every 6 hours as needed for pain. FAMILY HISTORY Problem Relation Age of Onset Diabetes Mother Hypertension Mother Cancer Mother Coronary Artery Disease Father myesthenia gravis Heart Father By-pass COPD Brother other (Smoker) Brother Social History Tobacco Use Smoking status: Every Day Packs/day: 1.00 Years: 20.00 Pack years: 20.00 Types: Cigarettes Smokeless tobacco: Never Vaping Use Vaping Use: Never used Substance Use Topics Alcohol use: Not Currently Comment: quit drinking 01/25/18 Drug use: No PHYSICAL EXAM BP 124/76 Pulse 109 Resp 18 Wt 48.1 kg (106 lb) LMP 08/06/2014 (LMP Unknown) BMI 17.11 kg/m General Appearance: well appearing, in no acute distress, alert Pysch: affect is anxious Lungs: Lungs clear to auscultation. No wheezing, rhonchi, rales. Heart: RRR without murmur, gallop, or rubs. No ectopy Health maintenance reviewed with patient: COVID-19 VACCINE(1) Never done SPIROMETRY Never done COLORECTAL CANCER SCREENING Never done LUNG CANCER SCREENING Never done SHINGRIX VACCINE(1 of 2) Never done INFLUENZA(1) due on 09/10/2022 MAMMOGRAM due on 11/06/2022 ANNUAL PCP TEAM CHRONIC DISEASE VISIT due on 01/11/2023 PAP TESTING due on 04/02/2023 DIABETES SCREEN due on 02/27/2024 LIPID SCREEN due on 02/26/2026 DTAP,TDAP,TD(2 - Td or Tdap) due on 03/28/2028 HEPATITIS B Discontinued ALPHA-1 ANTITRYPSIN DEFICIENCY SCREENING Discontinued HPV TESTING Discontinued HEPATITIS C SCREENING Discontinued HIV SCREENING Discontinued PNEUMOCOCCAL Discontinued DATA REVIEWED: Most recent labs ASSESSMENT/PLAN: 1. Low back pain, unspecified back pain laterality, unspecified chronicity, unspecified whether sciatica present - ICD9: 724.2, ICD10: M54.50 (primary diagnosis) Chronic. Continue with Gabapentin. Flexeril filled today. - CYCLOBENZAPRINE 10 MG TABLET 2. Post laminectomy syndrome - ICD9: 722.80, ICD10: M96.1 As above - GABAPENTIN 600 MG TABLET 3. Hyperlipidemia, unspecified hyperlipidemia type - ICD9: 272.4, ICD10: E78.5 - to be determined upon return of lab results - Continue current medication. 4. Generalized anxiety disorder - ICD9: 300.02, ICD10: F41.1 Stable 5. Pulmonary emphysema, unspecified emphysema type (HCC) - ICD9: 492.8, ICD10: J43.9 Stable 6. Fibromyalgia - ICD9: 729.1, ICD10: M79.7 See #1 7. Impaired glucose metabolism - ICD9: 790.29, ICD10: R73.09 Recheck Prescription instructions reviewed with patient as applicable. Potential red flag symptoms discussed with the patient. Reviewed appropriate action plan to take if red flag symptoms occur. Patient agreeable to treatment plan. Nely Flores APRN.CNP documented in this encounter [facility] 03-25-2022 Miscellaneous Notes Spoke with patient and advised that we would need her to complete a medical release form to obtain records from our office. She requested the form be mailed to her. Also advised that she would need to reach out to the facility that completed her MRI to obtain a disk of those images. She stated understanding, and release form was mailed. documented in this encounter [facility] 01-11-2022 Miscellaneous Notes Patient calls to request a sooner appointment with Dr. Girard than 1:40 pm this afternoon d/t falling and being in excruciating pain 12/21. Patient thinks she fell and broke something. Patient wants to have x-ray's completed. Instructed patient to go to ED for fall with excruciating pain per triage protocol. Patient didn't state whether or not she would be going to the ED. Patient already scheduled to see provider this afternoon at 1:40 pm for chronic pain/pain mangement referral. MRI completed per patient but post fall. Kia Gottlieb RN documented in this encounter [facility] 12-23-2021 Miscellaneous Notes Noted Nely Flores APRN.CNP Patient called and provider message reviewed. Patient remains unhappy and reports that Dr. Restrepo said PCP should be managing pain. Again instructed patient to read [facility] message to review what was discussed at appointment in regards to what PCP could treat. Patient reports that she wasn't planning to follow up with Dr. Martin as previously they injured her neck when they were supposed to be treating her lower back. Again, reviewed that PCP recommended following up with Dr. Martin and reviewing MRI. Patient reports that no one wants to take care of her and for months she has been having severe 10/10 pain and will just go to the ER for treatment. Notified patient that if pain is that severe that our recommendation would be for ER evaluation. Patient remains very angry. Offered ombudsman number for patient to voice concerns to and patient reports that is just a waste of time. Patient also said to let provider know that I am still getting all the alerts on of tasks that need completed that are already done. Kia Gottlieb RN I reviewed all of the options that I am able to provide in primary care at her appointment on 12/07. She is able to read my note on My Chart. An MRI of the lumbar spine was ordered by Dr. Martin, I recommend having this done and following up with his office. It looks like she has an appointment with him tomorrow. Nely Flores APRN.CNP Patient states that she seen Dr. Restrepo this morning. States that she is going around in circles with this and Dr. Mckay needs to tell her something because she keeps going through the same things. States that she NEEDS to be called back today because this has been ongoing. I referred patient to spine medicine to see what treatment options would be most appropriate for her, not specifically for pain medicine. Recommend keeping appointment with Dr. Restrepo for evaluation and seeing what her options are. Nely Flores APRN.CNP Patient calls to let provider know that she is very upset with referral to Dr. Restrepo. Patient reports that he is a spinal surgeon and doesn't prescribe pain medication. She reports that he is the same type of physician as Dr. Spicer and she was just spun in one big craig. Patient was very distraught talking negative about Dr. Restrepo, Dr. Spicer, Dr. Martin and provider's office. Patient's main focus was the pain she is enduring and that no one will medicate patient with pain medication. Patient reports Dr. Martin and his office is supposed to treat her pain and has caused her more pain than anything. Offered the phone number to the [facility] and patient became angry as she has already spoke to the [facility] who has also done nothing per patient. Kia Gottlieb RN documented in this encounter [facility] 10-22-2021 Note HNO ID: [id number] Author: Yarelis Johnson MA Service: ? Author Type: Smudger Type: Progress Notes Filed: 10/22/2021 9:14 AM Note Text: Review of Systems Constitutional: Positive for activity change. Negative for chills, fever and unexpected weight change. Gastrointestinal: Negative for bowel retention or incontinence Genitourinary: Positive for difficulty urinating. Negative for bladder retention or incontinence Musculoskeletal: Positive for arthralgias, back pain, gait problem, joint swelling, myalgias, neck pain and neck stiffness. Neurological: Positive for weakness, numbness and headaches. Psychiatric/Behavioral: Positive for dysphoric mood and sleep disturbance. Negative for suicidal ideas. The patient is nervous/anxious. [facility] 10-22-2021 Note HNO ID: [id number] Author: Paul Martin MD Service: ? Author Type: Physician Type: Progress Notes Filed: 10/22/2021 9:14 AM Note Text: [facility] Today's Date: 10/22/2021 Last Visit: 10/05/2021 Name: Barbara Hernandez : 1965 Purpose: Established Patient Encounter Interval History: Since last encounter, Barbara Hernandez reports that the chronic problem(s) of neck and low back pain are worse. She continues to complain of neck pain and frequent headaches. She has started PT for her low back pain at [facility], completed a course of 5 visits from approximately July - September 2021, disrupted by her car breaking down (has since been repaired). Tuan was discussed for her pain, but she preferred to stay on Gabapentin. Regarding medications: The following medication(s) were started: None The following medication(s) were discontinued: None The following medication(s) were continued: Neurontin 600mg TID - has helped control nightmares Tylenol OTC - takes 2000mg every 5 hours, notes this does not help Overall, the medication(s) have helped improve pain and ADL's. They are well-tolerated. The following procedures were performed: Medial branch blocks bilateral C4-5,5-6,6-7 was performed on 09/16/2021, with no relief of pain. She has reported worsening low back pain radiating into the right lower limb from her knee to her foot since the injection. She reports that she may be allergic to Bupivacaine. A repeat MRI was discussed, but she declined stating that her insurance would not cover it. She has been to PT as advised. She continues doing some stretching exercises daily that she learned in therapy. She reports that she is not interested in further injections at this time. The following new imaging or diagnostic tests were obtained, with relevant findings reported below: None Her low back surgeon, Dr. Spicer, recently advised her to have no further low back surgeries. She was recently worked up for HTN, reportedly this is due to pain and she had a cleared cardiology eval. She has reportedly had several EMG studies. New Problems reported: None Recall from prior medical records: She has had prior low back surgery. She has had several low back injections with Dr. Wharton, without relief (review of records show that she had several SI joint injections, Caudal injection, TFESI (Right L3-4 and L4-5). 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 She has reported that she has considered resuming drinking to cope with her pain. Her son's was on October 13. Current Status: INTAKE PAIN ASSESSMENT 09/21/2021 10/22/2021 Are you having pain associated with your visit today? 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 Also left upper limb. Exacerbating factors: unable to pinpoint exacerbating factors/positions Relieving factors: unable to pinpoint positions/factors that are mitigating Interferes with: walking, sleeping, driving, household cleaning, and social activities The patient reports previous difficulty with bowel or bladder control, unintentional weight loss, and fevers, chills, or night sweats, attributed to NSAID usage, but at this time, she is doing well. Medications: CURRENT Pain Medications: Opioid Pain Medications: None Date last filled: N/A Quantity filled: N/A How many left: N/A Time most recent dose taken: N/A Non-Opioid Pain Medications: Neurontin 600mg TID Afdr-xpd-ycqruii (OTC) Pain Meds: Tylenol OTC Compliance: PDMP website checked and validated. All prescriptions have been APPROPRIATELY filled. No suspicious activity was identified. by Paul Martin MD 10/22/2021 Percocet 5/325, #15 (08/06), #12 (07/24/2021) [place] 5/325, #9 (04/29), #6 (04/10/2021) Last Drug screen: Not Applicable Risk Assessment: JOÃO-7: JOÃO - 7 SCORES 07/02/2021 JOÃO-7 Score 14 (0-4) minimal anxiety, (5-9) mild anxiety, (10-14) moderate anxiety, (15-21) severe anxiety PHQ-9: PHQ-9 01/08/2015 12/10/2015 08/04/2016 Score 18 10 10 (0-4) minimal depression, (5-9) mild depression, (10-14) moderate depression, (15-19) moderately severe depression, (20-27) severe depression Safety Checklist: Are you taking proper precautions to safe guard your medication? Yes Taking the medications as prescribed? Yes Getting pain medications from another physi (more content not included)... [facility] 10-22-2021 Miscellaneous Notes 1.Are you diabetic No 2. Are you on any blood thinners? No 3. Are you taking any aspirin? Yes. Please list the current medications being prescribed sometimes, baby asprin. 4. Have you had any recent imaging done on your body part that's being injected? No 5. Do you have any allergies to latex? Yes 6. Do you have any allergies to seafood? No 7. Do you have any allergies to shellfish? No 8. Do you have any allergies to x-ray dye? No 9. Are you taking Xanax for the procedure? No 10. Have you done physical therapy in the last year? Yes If yes, When and Where? [facility]. (Medical Records Release needs to be signed.) 11. Were the pre-procedure instructions explained to the patient? Yes 12. Do you have a pacemaker? No 13. Do you have an internal stimulator of any kind? No If yes, please bring the remote with you to your procedure visit. 14. Have you received the COVID-19 Vaccine? Yes. If yes, date(s) received: explained to patient. (Patient should not receive a procedure including steroids 14 days prior to their first dose of the COVID vaccine. They should not receive any procedure containing steroids in the time frame between their 1st and 2nd doses of the COVID vaccine. They should not receive a procedure containing steroids 14 days after their 2nd dose of the COVID vaccine.) Joseph Chaidez documented in this encounter [facility] 10-22-2021 Nurse Note During intake questions patient refused to answer if she has suicidal ideas. Yarelis Johnson MA documented in this [facility] [facility] History of Present illness Narrative Review of Systems Constitutional: Positive for activity change. Negative for chills, fever and unexpected weight change. Gastrointestinal: Negative for bowel retention or incontinence Genitourinary: Positive for difficulty urinating. Negative for bladder retention or incontinence Musculoskeletal: Positive for arthralgias, back pain, gait problem, joint swelling, myalgias, neck pain and neck stiffness. Neurological: Positive for weakness, numbness and headaches. Psychiatric/Behavioral: Positive for dysphoric mood and sleep disturbance. Negative for suicidal ideas. The patient is nervous/anxious. Images from the original note were not included. [facility] [place] Today's Date: 10/22/2021 Last Visit: 10/05/2021 Name: Barbara Hernandez : 1965 Purpose: Established Patient Encounter Interval History: Since last encounter, Barbara Hernandez reports that the chronic problem(s) of neck and low back pain are worse. She continues to complain of neck pain and frequent headaches. She has started PT for her low back pain at [facility], completed a course of 5 visits from approximately July - September 2021, disrupted by her car breaking down (has since been repaired). Lyrica was discussed for her pain, but she preferred to stay on Gabapentin. Regarding medications: The following medication(s) were started: None The following medication(s) were discontinued: None The following medication(s) were continued: Neurontin 600mg TID - has helped control nightmares Tylenol OTC - takes 2000mg every 5 hours, notes this does not help Overall, the medication(s) have helped improve pain and ADL's. They are well-tolerated. The following procedures were performed: Medial branch blocks bilateral C4-5,5-6,6-7 was performed on 09/16/2021, with no relief of pain. She has reported worsening low back pain radiating into the right lower limb from her knee to her foot since the injection. She reports that she may be allergic to Bupivacaine. A repeat MRI was discussed, but she declined stating that her insurance would not cover it. She has been to PT as advised. She continues doing some stretching exercises daily that she learned in therapy. She reports that she is not interested in further injections at this time. The following new imaging or diagnostic tests were obtained, with relevant findings reported below: None Her low back surgeon, Dr. Spicre, recently advised her to have no further low back surgeries. She was recently worked up for HTN, reportedly this is due to pain and she had a cleared cardiology eval. She has reportedly had several EMG studies. New Problems reported: None Recall from prior medical records: She has had prior low back surgery. She has had several low back injections with Dr. Wharton, without relief (review of records show that she had several SI joint injections, Caudal injection, TFESI (Right L3-4 and L4-5). 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 She has reported that she has considered resuming drinking to cope with her pain. Her son's was on October 13. Current Status: INTAKE PAIN ASSESSMENT 09/21/2021 10/22/2021 Are you having pain associated with your visit today? 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 Also left upper limb. Exacerbating factors: unable to pinpoint exacerbating factors/positions Relieving factors: unable to pinpoint positions/factors that are mitigating Interferes with: walking, sleeping, driving, household cleaning, and social activities The patient reports previous difficulty with bowel or bladder control, unintentional weight loss, and fevers, chills, or night sweats, attributed to NSAID usage, but at this time, she is doing well. Medications: CURRENT Pain Medications: Opioid Pain Medications: None Date last filled: N/A Quantity filled: N/A How many left: N/A Time most recent dose taken: N/A Non-Opioid Pain Medications: Neurontin 600mg TID Cigv-xdg-ynlojbz (OTC) Pain Meds: Tylenol OTC Compliance: PDMP website checked and validated. All prescriptions have been APPROPRIATELY filled. No suspicious activity was identified. by Paul Martin MD 10/22/2021 Percocet 5/325, #15 (08/06), #12 (07/24/2021) [place] 5/325, #9 (04/29), #6 (04/10/2021) Last Drug screen: Not Applicable Risk Assessment: JOÃO-7: JOÃO - 7 SCORES 07/02/2021 JOÃO-7 Score 14 (0-4) minimal anxiety, (5-9) mild anxiety, (10-14) moderate anxiety, (15-21) severe anxiety PHQ-9: PHQ-9 01/08/2015 12/10/2015 08/04/2016 Score 18 10 10 (0-4) minimal depression, (5-9) mild depression, (10-14) moderate depression, (15-19) moderately severe depression, (20-27) severe depression Safety Checklist: Are you taking proper precautions to safe guard your medication? Yes Taking the medications as prescribed? Yes Getting pain medications from another physician? No Obtaining pain medication from another source? No Sharing medications with friends/family? No Quality of life improved as a result of taking these medications? Yes Any side effect with this medication? No Justification for Continued Opioid Care: Adequate analgesia? Yes Aberrant drug seeking behavior? No Adverse reactions? No Medications improve quality of life? Yes Pain Medications Taken TO DATE (for the chief complaint(s)): Membrane Stabilizers: Neurontin (Gabapentin), Elavil (Amitriptyline), and Pamelor (Nortriptyline) NSAIDS: Motrin (Ibuprofen) and Mobic (Meloxicam) - reports she has been advised not to take NSAIDS due to prior GI distress Opioids: Percocet (Oxycodone) Muscle Relaxants: Flexeril (Cyclobenzaprine), Robaxin (Methocarbamol), and Lioresal (Baclofen) Topicals: Multiple - no relief Other Prescription or OTC Pain Medications: Tylenol (Acetaminophen) and Aspirin Anti-depressants: Prozac 80mg daily Non-Pain Meds of Note: None Allergies: ALLERGIES Allergen Reactions Cortisone Hives Latex, Natural Rubb* Rash Penicillins Hives Iv Contrast [Iodine] Other: See Comments Patient reports she has had reactions to contrast on occasion, not consistently, and no specific reaction was noted Meloxicam GI Upset Entex [Phenylephrin* Intolerance Naprosyn [Naproxen] Rash Diagnostic Studies: Relevant Imaging: Reviewed Personally on today's date, noted above MRI Spine Report No resulted procedures found. MRI C-spine (OSH) 06/2021: MRI Lumbar (OSH) 12/2019: MRI Right Hip ([facility]) 06/2019: X-ray L-spine, w/ flex/ext 06/2021: There are five tft-hgr-hjverwz lumbar vertebrae. No fracture or subluxations are noted. The disc spaces are well preserved. There is mild osteophyte formation. X-ray C-spine 06/2021: No acute fractures or subluxations are noted. There appears be straightening of the cervical spine curvature. C5-6 and C6-7 disc space narrowing is demonstrated. There is mild osteophyte formation, with facet arthrosis. Multilevel bilateral neural foraminal narrowing is demonstrated. The prevertebral soft tissues are normal. Electrodiagnostic Study (EMG): None Pain Procedures: DATE PROCEDURE IMPROVEMENT 09/16/2021 MBB Bilat C4-5,5-6,6-7 No relief Current Medications, Past Medical History, Past Surgical History, Family History, Social History and Review of Systems: On today's date (noted above), I have confirmed and edited as necessary, the PFSH and ROS obtained by others. Physical Exam: 10/22/21 0824 Pulse: 77 Resp: 16 SpO2: 99% Constitutional:underweight Eyes: Conjunctiva clear. No discharge from eyes Cardiovascular: Appears well perfused Lymphatic: No visible regional lymphadenopathy Skin: No visible rashes or ecchymosis Psychiatric: Full affect, Alert, Pleasant Neuro-Lower: Neural Tension Signs: Negative slump in Bilateral lower limbs Sensation: intact to light touch in the L2-S2 Bilateral lower limb dermatomes Muscle Tone: Normal and symmetric throughout without clonus Strength: Iliopsoas (L2): 5 Left, 5 Right Quadriceps (L3) 5 Left, 5 Right Anterior Tibialis (L4): 5 Left, 5 Right Extensor Hallucis Longus (L5): 5 Left, 5 Right Gastrocnemius (S1): 5 Left, 5 Right Musculoskeletal-Lower: Inspection: Symmetric without atrophy Palpation: Lumbar Paraspinal Tenderness: Concordant on Bilateral side(s) Paraspinal Spasms: Moderate PSIS Tenderness: None on Bilateral side(s) Greater Trochanter Tenderness: None on Bilateral side(s) Spine Range of Motion: Flexion: Decreased 50% With end range pain Extension: Decreased 50% With end range pain Combination extension and rotation pain: Concordant Hip Range of Motion: Right Hip: Internal Rotation: Normal; Pain at end range: None External Rotation: Normal; Pain at end range: None Left Hip: Internal Rotation: Normal; Pain at end range: None External Rotation: Normal; Pain at end range: None Sacroiliac Maneuvers: Deferred Diagnoses: (M53.3) Coccydynia (primary encounter diagnosis) (M96.1) Post laminectomy syndrome (F41.1) Generalized anxiety disorder (F43.10) Post-traumatic stress disorder (G90.50) RSD (reflex sympathetic dystrophy) (M79.7) Fibromyalgia Impression: 55 year old female with significant past medical history for Fibromyalgia, RSD, Emphysema, Active Cigarette Smoker, Inflamatory Polyarthropathy, Coccydynia, PTSD, MDD, JOÃO, who presents with complaint(s) of axial neck and low back pain She has reported worsening low back pain radiating into the right lower limb from her knee to her foot since the injection. A repeat MRI was discussed, but she declined stating that her insurance would not cover it. She has been to PT as advised, but has declined the offer for another MRI. At this time, I think that the post-injection pain is myofascial - there was likely aggravation of soft tissue with the injection and with her preexisting diffuse myofascial pain, it would be possible to develop pain in the regions she mentioned. She has concerns about possible allergy to Bupivacaine, which she has received many times previously for injections. Allergy testing was offered and declined. Previously, chronic rehab program at [facility] was advised, declined due to concern for transportation issues. My HOME CARE NURSE spent nearly an hour with her on 10/05 for a virtual visit, with a very thorough review of her history and consideration of alternative treatments. She has tried most pain medications, has had many injections, surgeries and other treatments, without improvement. She has declined offers for additional treatments that may be helpful. At this time, there may be little more that we can offer. She has not had a Ganglion of Impar blockade and given the degree of coccydynia, I advised we proceed with this. Plan: Barbara Hernandez would benefit from the following to reach personal goals for decreasing pain, improving function and work participation, and/or improving quality of life: -Interventional Procedure: Ganglion of Impar blockade under fluoroscopic guidance (Use Lidocaine instead of Bupivacaine) The risks, benefits, alternative treatment options and prognosis of the procedure were discussed and all of the patient's questions/concerns were addressed to the patient's satisfaction. Patient was advised that they will need a sprinkler driver for after the procedure and that if no sprinkler driver is available and on site at the time of the procedure, the procedure will be cancelled. For any anticoagulants, the patient was advised on whether to continue or hold for this procedure. The patient expressed understanding and gave verbal consent to proceed. Medication(s): Neurontin 600mg TID - continue Additional Studies: None (Will need to review outside records further to see if we can find any of her prior Electrodiagnostic Studies and a more recent lumbar MRI if available) Referrals: No additional considerations at present Functional Denominational: Home Exercise Program under provider supervisions - continue Depending on response to the above-mentioned plan of care, in the future may consider evaluation for: Increase Neurontin -Follow-up: 2 months Attribution: In addition to reviewing the information noted above, some elements copied from my most recent clinical note(s), including the physical exam (completed in entirety today), and the impression and plan sections, have been updated where appropriate. All reflect current medical decision making from today's date. I spent a total of 42 minutes on the date of the service which included preparing to see the patient, oosq-[id number] patient care, completing clinical documentation, obtaining and/or reviewing separately obtained history, performing a medically appropriate examination, counseling and educating the patient/family/caregiver, ordering medications, tests, or procedures, and communicating results to the patient/family/caregiver. Paul Martin MD, [facility] documented in this encounter [facility] 10-07-2021 Miscellaneous Notes Please advise patient I do not know what medications Dr. Wharton used for her injections. For her cervical MBB with our practice, only anesthetic (like bupivacaine or lidocaine) is used, no steroids or other medications. The anesthetic has a short half life and are not related to her Blood pressure issues or her vomiting episodes. Advise she continues to work with her PCP to further evaluate those issues for her. Thank you, Bonifacio Christie APRN.[facility] documented in this encounter [facility] 10-05-2021 Note HNO ID: [id number] Author: Bonifacio Christie APRN.K[facility]IGH Service: ? Author Type: Nurse Practitioner Type: Progress Notes Filed: 10/05/2021 9:19 AM Note Text: VIRTUAL VISIT PROGRESS NOTE This is a virtual visit using [employer] video visit. It required patient-provider interaction for the medical decision making as documented below. Barbara Hernandez is a 55 year old female seen for neck and low back pain. States her neck pain radiates up the back of her head, worse since her her initial Cervical MBB earlier this month. Patient underwent Cervical MBB on 09/16/21 with no meaningful pain relief. She is complaining of frequent headaches. Occasionally has radiating pain in her arms, after laying down for 2 hours and then wakes up. She also reports that since the cervical MBB she has increased low back pain and increased RIGHT leg pain from the knee down. States its like its numb, but its pain. Reports she is constipated, denies bowel incontinence, she is not having urinary issues. Today she reports that her back pain continually gets worse, reports that the pain is in her tailbone and she has difficulty sitting for any prolonged period of time. She has had bilateral SI joint injections in the past with no reported relief, as the patient reports that injections have never been helpful for her. She unfortunately still has not started PT as previously ordered for her lumbar issues. Reports there was a COVID exposure and is now having transportation issues. She reports that she has had MRI imaging in the last couple of years from [facility] but she does not recall if this was before or after her last lumbar surgery. She reports that was to orthopedics messed up my surgery. She reports that revision lumbar surgery was recommended however she is apprehensive due to the issues she had after her last surgery. At her last OV, she reported gabapentin was not effective and requesting something for pain. She has had SE/GI issues to NSAIDS in the past. Options were discussed, Lyrica was initiated in place of Gabapentin, however she was apprehensive to start. Gabapentin 1200mg at HS was restarted. States I have been on this for 17 years for my dreams, not for pain. She has tried several muscle Relaxers, opioids and Pamelor/Elevil in the past. She also reports I was on higher dose of gabapentin, but my is insurance made me cut down. Reports she had a pain pump in the distant past with a previous pain management, ~30 years ago. Reports she had several lumbar injections with with no relief. Reports she has struggled with this chronic pain for >30 years and no relief with her treatments. She reports she wants Today the patient rates her pain 10/10, describes pain as constant achy and stiff pain. 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 She reports she considers resuming drinking to help her cope. She also reports how she struggles with the of her son, she had talked to counseling in the past. The anniversary of her sons was Dec.13, and this is a difficult time of year for her. [facility] 07/02/2021 Questionnaire GREENLIGHT Completed Date 07/02/2021 Questionnaire Opiod Risk Tool Completed Date 07/02/2021 HISTORY REVIEWED (electronic chart updated): PAST MEDICAL HISTORY Diagnosis Date - Anxiety disorder 06/23/2011 - Chronic obstructive pulmonary disease (COPD) ([facility]) - Complicated grief 06/23/2011 - Depression - Depression, major 04/23/2010 - Emphysema/COPD ([facility]) 04/23/2010 - Fibromyalgia 03/28/[address] Bergman - Hot flashes 02/28/2013 - Inflammatory polyarthropathy ([facility]) 03/28/[address] Bergman - Marcia - Freedman tear 09/2010 received transfusion - Post-traumatic stress disorder 06/03/2010 - RSD (reflex sympathetic dystrophy) 03/28/2013 Right upper extremity - screening for Type 2 diabetes mellitus without complication ([facility]) 07/16/2016 PAST SURGICAL HISTORY Procedure Laterality Date - ESOPHAGOGASTRODUODENOSCOPY TRANSORAL DIAGNOSTIC 10/07/2010 EGD [facility] inpt n /H-pylori negative - LAMINOTOMY (HEMILAMINECTOMY), WITH DECOMPRESSION OF NERVE ROOT(S) Right 03/12/2020 L5-S1 discectomy, [facility], Dr. Bety Spicer - LIG/TRNSXJ FLP TUBE ABDL/VAG APPR UNI/BI Tubal ligation - PAST SURGICAL HISTORY OF 07/24/2018 Complete hysterectomy - PAST SURGICAL HISTORY OF Right carpal tunnel FAMILY HISTORY Problem Relation Age of Onset - Diabetes Mother - Hypertension Mother - Cancer Mother - Coronary Artery Disease Father myesthenia gravis - Heart Father By-pass - COPD Brother - other (Smoker) Brother Social History Tobacco Use - Smoking status: Current Every Day Smoker Packs/day: 0.50 Years: 20.00 Pack years: 10.00 Types: Cigarettes - Smokeless tobacco: Never Used Vaping Use - Vaping Use: Never used Substance Use Topics - Alcohol use: Not Currently Comment: quit (more content not included)... [facility] 10-05-2021 History of Present illness Narrative VIRTUAL VISIT PROGRESS NOTE This is a virtual visit using [employer] video visit. It required patient-provider interaction for the medical decision making as documented below. Barbara Hernandez is a 55 year old female seen for neck and low back pain. States her neck pain radiates up the back of her head, worse since her her initial Cervical MBB earlier this month. Patient underwent Cervical MBB on 09/16/21 with no meaningful pain relief. She is complaining of frequent headaches. Occasionally has radiating pain in her arms, after laying down for 2 hours and then wakes up. She also reports that since the cervical MBB she has increased low back pain and increased RIGHT leg pain from the knee down. States its like its numb, but its pain. Reports she is constipated, denies bowel incontinence, she is not having urinary issues. Today she reports that her back pain continually gets worse, reports that the pain is in her tailbone and she has difficulty sitting for any prolonged period of time. She has had bilateral SI joint injections in the past with no reported relief, as the patient reports that injections have never been helpful for her. She unfortunately still has not started PT as previously ordered for her lumbar issues. Reports there was a COVID exposure and is now having transportation issues. She reports that she has had MRI imaging in the last couple of years from [facility] but she does not recall if this was before or after her last lumbar surgery. She reports that was to orthopedics messed up my surgery. She reports that revision lumbar surgery was recommended however she is apprehensive due to the issues she had after her last surgery. At her last OV, she reported gabapentin was not effective and requesting something for pain. She has had SE/GI issues to NSAIDS in the past. Options were discussed, Lyrica was initiated in place of Gabapentin, however she was apprehensive to start. Gabapentin 1200mg at HS was restarted. States I have been on this for 17 years for my dreams, not for pain. She has tried several muscle Relaxers, opioids and Pamelor/Elevil in the past. She also reports I was on higher dose of gabapentin, but my is insurance made me cut down. Reports she had a pain pump in the distant past with a previous pain management, ~30 years ago. Reports she had several lumbar injections with with no relief. Reports she has struggled with this chronic pain for >30 years and no relief with her treatments. She reports she wants Today the patient rates her pain 10/10, describes pain as constant achy and stiff pain. 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 She reports she considers resuming drinking to help her cope. She also reports how she struggles with the of her son, she had talked to counseling in the past. The anniversary of her sons was Dec.13, and this is a difficult time of year for her. [facility] 07/02/2021 Questionnaire GREENLIGHT Completed Date 07/02/2021 Questionnaire Opiod Risk Tool Completed Date 07/02/2021 HISTORY REVIEWED (electronic chart updated): PAST MEDICAL HISTORY Diagnosis Date Anxiety disorder 06/23/2011 Chronic obstructive pulmonary disease (COPD) ([facility]) Complicated grief 06/23/2011 Depression Depression, major 04/23/2010 Emphysema/COPD ([facility]) 04/23/2010 Fibromyalgia 03/28/[address] Bergman Hot flashes 02/28/2013 Inflammatory polyarthropathy ([facility]) 03/28/[address] Bergman Marcia - Freedman tear 09/2010 received transfusion Post-traumatic stress disorder 06/03/2010 RSD (reflex sympathetic dystrophy) 03/28/2013 Right upper extremity screening for Type 2 diabetes mellitus without complication ([facility]) 07/16/2016 PAST SURGICAL HISTORY Procedure Laterality Date ESOPHAGOGASTRODUODENOSCOPY TRANSORAL DIAGNOSTIC 10/07/2010 EGD [facility] inpt n /H-pylori negative LAMINOTOMY (HEMILAMINECTOMY), WITH DECOMPRESSION OF NERVE ROOT(S) Right 03/12/2020 L5-S1 discectomy, [facility], Dr. Bety Spicer LIG/TRNSXJ FLP TUBE ABDL/VAG APPR UNI/BI Tubal ligation PAST SURGICAL HISTORY OF 07/24/2018 Complete hysterectomy PAST SURGICAL HISTORY OF Right carpal tunnel FAMILY HISTORY Problem Relation Age of Onset Diabetes Mother Hypertension Mother Cancer Mother Coronary Artery Disease Father myesthenia gravis Heart Father By-pass COPD Brother other (Smoker) Brother Social History Tobacco Use Smoking status: Current Every Day Smoker Packs/day: 0.50 Years: 20.00 Pack years: 10.00 Types: Cigarettes Smokeless tobacco: Never Used Vaping Use Vaping Use: Never used Substance Use Topics Alcohol use: Not Currently Comment: quit drinking 01/25/18 Drug use: No Current Outpatient Medications Medication Sig gabapentin (NEURONTIN) 300 mg capsule Take 4 capsules by mouth daily at bedtime for 180 days. albuterol HFA (PROVENTIL HFA, VENTOLIN HFA) 90 mcg/actuation inhaler Inhale 2 Puffs as instructed every 4 hours as needed for wheezing/shortness of breath. Patient requests VENTOLIN please. With spacer please. acetaminophen (TYLENOL EXTRA STRENGTH) 500 mg tablet Take 2 tablets by mouth every 6 hours as needed for pain. FLUoxetine (PROZAC) 20 mg capsule Take 4 capsules by mouth daily at bedtime. atorvastatin (LIPITOR) 20 mg tablet Take 1 tablet by mouth once daily. No current facility-administered medications for this visit. ALLERGIES Allergen Reactions Cortisone Hives Latex, Natural Rubb* Rash Penicillins Hives Iv Contrast [Iodine] Other: See Comments Patient reports she has had reactions to contrast on occasion, not consistently, and no specific reaction was noted Meloxicam GI Upset Entex [Phenylephrin* Intolerance Naprosyn [Naproxen] Rash REVIEW OF SYSTEMS: Review of Systems Constitutional: Negative for chills, fatigue, fever and unexpected weight change. HENT: Negative for congestion and sore throat. Eyes: Negative for visual disturbance. Respiratory: Negative for cough and shortness of breath. Cardiovascular: Negative for chest pain. Gastrointestinal: Positive for constipation. Negative for abdominal pain, nausea and vomiting. Genitourinary: Negative for decreased urine volume and difficulty urinating. Musculoskeletal: Positive for arthralgias, back pain and neck pain. Negative for joint swelling. Skin: Negative for rash. Neurological: Positive for numbness and headaches. Negative for dizziness and light-headedness. Hematological: Does not bruise/bleed easily. Psychiatric/Behavioral: Positive for sleep disturbance. Negative for agitation and decreased concentration. The patient is not nervous/anxious. PHYSICAL EXAMINATION: Ht 167.6 cm (5' 6 ) Wt 49.4 kg (109 lb) LMP 08/06/2014 (LMP Unknown) BMI 17.59 kg/m VIDEO EXAM: (if completed, performed via video enabled technology) GENERAL: alert and appropriate, in no distress, appears tired, thin and unkempt SKIN: no rash noted HEAD: normocephalic, no abnormality or lesion noted EYES: no injection and visual acuity is grossly normal NECK: full ROM, no cervical LNs noted RESPIRATORY: breathing non-labored BACK: back normal in appearance, spine with FROM EXTREMITIES: Moves UE without difficulty as visualized on video NEUROLOGIC: no obvious deficit ASSESSMENT: (M96.1) Post laminectomy syndrome (F41.1) Generalized anxiety disorder (F43.10) Post-traumatic stress disorder (G90.50) RSD (reflex sympathetic dystrophy) (M79.7) Fibromyalgia PLAN: Patient presents today for virtual visit for complaints of continued and worsening neck and low back pain. She reports that she had no meaningful relief after her initial cervical MBB; therefore the repeat injection was canceled. She reports that her pain is primarily in the neck and radiates up the back of her head causing her to have headaches. She has transient bilateral arm pain primarily after laying/sleeping for 2 hours and then waking up. She is vague in her symptom description. She is also complaining of increased low back pain she reports that since the cervical MBB she now has worsening low back pain and increased right leg pain from the knee radiating down into her foot. I have no explanation for this as a cervical MBB injection would not cause the symptoms to occur. Again she unfortunately has not started physical therapy as encouraged so that we can facilitate approval an updated MRI of her lumbar spine. Patient has multiple reasons as to why she has not been able to do physical therapy. She also reports that her insurance will not allow me to have any more MRIs because I have had too many. she then goes on to state that she has been told that she should never have more than 2 MRIs due to the risks of having multiple MRIs. I attempted to advise her that MRIs have relatively low risks associated with them in comparison to frequent radiological imaging such as x-rays or CAT scan imaging. She disagrees with this statement. Advised that if she knows that she has had a more recent lumbar MRI with [place] [facility] that she obtain a copy for us and that we can review that, however I strongly advised that it is a postoperative MRI otherwise I do recommend that she proceed with therapy so we can get an updated MRI. Patient has been on various opioid therapy, pain pump approximately 30 years ago, multiple muscle relaxers and NSAIDs as well as injection therapy with no meaningful relief. She is not able to take NSAIDs due to GI side effects. She also reports that previous providers have miss advised her on how to take these medications which resulted in her adverse effects. Patient also admits to previous history of alcohol abuse, she has been sober for approximately 4 years. She admits today that she often thinks about drinking again to help her cope with her pain as well as the loss of her son. She lost her son when he was 24 years of age to a traumatic violent episode, she has sought counseling in the past. She feels very frustrated with her mental health services in the past that she felt that her mental health providers only talked about their grief. She reports that the anniversary of his is coming up in the month of December this is very urging very challenging time of year for her. Patient reports that she has been struggling with this chronic pain for the majority of her life. It seems that there is certainly a somatic component to her chronic pain. She is already on higher doses of Prozac, so I do not feel comfortable adding Cymbalta at this time. I did offer her referral to counseling/mental health services. Patient declined. Patient states this has nothing to do with my pain, I have had this for a long time and I can handle this on my own I also discussed referral to [facility]. Patient reports this will be complicated as she has transportation issues. She seems to tolerate her gabapentin without any adverse side effects. She is only taking 1200 mg at at bedtime. We discussed increasing to one 300 mg capsule in the a.m. and continue for 4 capsules at bedtime. She is in agreements with this. A new prescription was sent to her pharmacy. She may continue Tylenol but no more than 1 g p.o. 3 times daily as needed for pain relief. Encourage she continue to utilize heat therapy and regular stretching and activity. Again I strongly emphasized the importance of updated physical therapy. Patient expresses great frustration that we do not have all of her records, however she does utilize outside facilities of [facility]. She also expresses that she is upset that her MyChart is not accurate in regards to immunization and annual screening recommendations that show up on her MyChart. I advised that these are not things and I manage, and if she is following a primary care provider in an outside facility and then she can disregard those alerts. She was not satisfied with the suggestion. She reports that somebody needs to correct this. She has follow-up appointment scheduled with Dr. Martin on 11/05/2021. She will keep this appointment as scheduled. Patient Instructions Activity as tolerated Use Ice and/or heat as tolerated as needed I spent a total of 55 minutes on the date of the service which included preparing to see the patient, gkdu-zy-qzuz patient care, completing clinical documentation, obtaining and/or reviewing separately obtained history, counseling and educating the patient/family/caregiver and ordering medications, tests, or procedures It was necessary to convert the virtual visit to a telephone encounter due to technical difficulties. Bonifacio Christie APRN.CNP MRI Spine Report No resulted procedures found. PDMP website checked and validated. All prescriptions have been APPROPRIATELY filled. No suspicious activity was identified. 10/05/2021 by Bonifacio Christie APRN.CNP documented in this encounter [facility] 10-05-2021 Instructions Bonifacio Christie APRN.CNP - 10/05/2021 7:58 AM EDT Activity as tolerated Use Ice and/or heat as tolerated as needed documented in this encounter [facility] 10-01-2021 Miscellaneous Notes You can certainly reach out to your surgeon to discuss your options. I would advise to discontinue smoking if you have done so already in order to be consider for surgery. Regarding the lumbar Spine, updated MRI will be helpful in guiding treatment options once therapy has been completed, we can submit for this with an update examination. You need to follow up with your PCP regarding your BP. If treatment is not meeting your pain needs, we can refer you for the [facility] at [facility] for consultation. Thank you, Bonifacio Christie APRN.HOME CARE NURSE documented in this encounter [facility] 09-25-2021 Miscellaneous Notes Bonifacio kelby HOME CARE NURSE has been following her in clinic. I will forward to her to address. Paul Martin III, MD, BOBBY Scheduled patient for an OV to see 11/05 at [facility] and placed on waitlist. Patient wants to know what to do in the meantime about her pain. documented in this encounter [facility] 09-23-2021 Miscellaneous Notes Attempted to call patient back. No answer and mailbox is full documented in this encounter [facility] 09-22-2021 Miscellaneous Notes Called patient to schedule office visit. VM is full and cannot leave message. Erin Ferrell documented in this encounter [facility] 09-22-2021 Note HNO ID: [id number] Author: Stefania Mahmood PA-C Service: ? Author Type: Physician Scrap Drop Crane Operator Type: Progress Notes Filed: 09/22/2021 11:55 AM Note Text: AMBULATORY TELEPHONE VISIT Barbara Gan David 1965 has consented to this telephone encounter. Persons Present: patient Chief Complaint/Reason: neck pain HPI: Since last encounter, Barbara Hernandez reports that the chronic problem(s) listed above are Unchanged. Today the patient rates neck pain 10/10. Patient underwent her first round of Cervical MBB B/L C4/5, C5/6, C6/7 on 09/16/[address] Martin. Patient reports 5% relief from the injection. Symptom relief lasted 20-30 minutes. Patient states she feels like someone drilled in my left ear through to the back of my throat which started right after she got home from the injection. Patient states this is still going on. She has had ear infections over her lifetime but none that felt like this. Patient denies any adverse side effects such as nausea, vomiting, hives, fever, injection site redness/induration, headache, or new radicular symptoms New Problems reported: see hpi Review of Systems: Reviewed on today's date. - Pertinent Positives: MSK - pain in the region being treated - Neuro: No weakness or numbness in the region being treated - Skin: Negative (No itching) - Eyes: Negative (No blurred or double vision) - Respiratory: Negative (No Cough, Wdlmhdusb-fs-wzlgum, Dyspnea on exertion, wheezing) - Cardiovascular: Negative (No Chest Pain, Tightness, Pressure, Palpitations) - Gastrointestinal: Negative (No Abdominal pain, Nausea, Vomiting, Constipation, Diarrhea) - Genitourinary: Negative (No dysuria) - Hematologic: Negative (No bleeding, bruising) - Endocrine: Negative (No hot/cold intolerance) - Psychiatric: Negative (No depression, anxiety or suicidal ideation) Data Reviewed: None new to review Current Medications, Past Medical History, Past Surgical History, Family History AND Social History: Reviewed on today's date. Diagnoses: (M47.812) Cervical spondylosis without myelopathy (primary encounter diagnosis) Assessment and Plan: Hold off on further MBBs at this time until her left ear is worked up by her PCP Make first appointment available with Bonifacio or Dr. Martin to discuss next steps Total Time Spent: 20 minutes Stefania Mahmood PA-C ([place]) [facility] 09-22-2021 Instructions Stefania Mahmood PA-C - 09/22/2021 11:45 AM EDT Activity as tolerated Use Ice and/or heat as tolerated as needed documented in this encounter [facility] 09-22-2021 History of Present illness Narrative AMBULATORY TELEPHONE VISIT Barbara Hernandez 1965 has consented to this telephone encounter. Persons Present: patient Chief Complaint/Reason: neck pain HPI: Since last encounter, Barbara Hernandez reports that the chronic problem(s) listed above are Unchanged. Today the patient rates neck pain 10/10. Patient underwent her first round of Cervical MBB B/L C4/5, C5/6, C6/7 on 09/16/[address] Martin. Patient reports 5% relief from the injection. Symptom relief lasted 20-30 minutes. Patient states she feels like someone drilled in my left ear through to the back of my throat which started right after she got home from the injection. Patient states this is still going on. She has had ear infections over her lifetime but none that felt like this. Patient denies any adverse side effects such as nausea, vomiting, hives, fever, injection site redness/induration, headache, or new radicular symptoms New Problems reported: see hpi Review of Systems: Reviewed on today's date. Pertinent Positives: MSK - pain in the region being treated Neuro: No weakness or numbness in the region being treated Skin: Negative (No itching) Eyes: Negative (No blurred or double vision) Respiratory: Negative (No Cough, Mxkfabczn-ww-fuyyga, Dyspnea on exertion, wheezing) Cardiovascular: Negative (No Chest Pain, Tightness, Pressure, Palpitations) Gastrointestinal: Negative (No Abdominal pain, Nausea, Vomiting, Constipation, Diarrhea) Genitourinary: Negative (No dysuria) Hematologic: Negative (No bleeding, bruising) Endocrine: Negative (No hot/cold intolerance) Psychiatric: Negative (No depression, anxiety or suicidal ideation) Data Reviewed: None new to review Current Medications, Past Medical History, Past Surgical History, Family History & Social History: Reviewed on today's date. Diagnoses: (M47.812) Cervical spondylosis without myelopathy (primary encounter diagnosis) Assessment and Plan: Hold off on further MBBs at this time until her left ear is worked up by her PCP Make first appointment available with Bonifacio or Dr. Martin to discuss next steps Total Time Spent: 20 minutes Stefania Mahmood PA-C ([place]) [facility] documented in this encounter [facility] 09-16-2021 Note HNO ID: [id number] Author: Allyssa Dubois RN Service: Nursing Author Type: Registered Nurse Type: Nursing Progress Note Filed: 09/16/2021 12:13 PM Note Text: Pt requests ice pack to coccyx. Order received from Dr. Martin. Ice pack placed to coccyx. [facility] 09-16-2021 Miscellaneous Notes Ms. Hernandez expressed concerns today about her medical care. She reports that her Neurontin was stopped last office visit, which she had been taking for many years, and she was switched to Lyrica. She reports that she is unhappy about this, as she was having less PTSD symptoms on Neurontin. Review of her last office note shows that she had requested a change from Neurontin, which she denies. It is not clear the source of the miscommunication, but I apologized for any miscommunication and am switching her back to Neurontin, discontinuing the Lyrica. She was taking Neurontin 1200mg qHS most recently and will be restarted on this dose. I will send her a mychart, suggesting that she take 600mg qHS for a week, then increase back to 1200mg qHS. She also notes that she was upset that she has not had any injections for her low back, as she has had worsening low back pain since a recent fall. Review of last visit note shows that this was discussed and considered, but that new MRI was desired by both herself and the clinician prior to any injections. She was to start PT for treatment and also to allow for an updated MRI. I informed her of all of this, and she reports that this was indeed what was discussed. While her care looks appropriate, I heard her concerns and I offered to resume seeing her in [place]. However, I asked that we split time between myself and my HOME CARE NURSE, as she also had concerns about access, to which she agreed. I will update my HOME CARE NURSE about all of this also. Paul Martin III, MD, MBA documented in this encounter [facility] 08-21-2021 Miscellaneous Notes Please advise patient that Lyrica and gabapentin in the same family of medicines, herefore we do not have to wean her off the gabapentin but simply transition her over to the Lyrica. If she does not feel comfortable transitioning to Lyrica she may continue her gabapentin as currently prescribed. If new or recurrent falls with injuries I would recommend ER or urgent care evaluation. Thank you, Bonifacio Christie APRN.HOME CARE NURSE documented in this encounter [facility] 08-20-2021 Miscellaneous Notes I have reviewed Ms. Hernandez's concerns via [employer], and I have reviewed our HOME CARE NURSE's treatment plan and response, and they are appropriate measures that are being taken to address her concerns. I am in agreement with this plan. Paul Martin III, MD, MBA This afternoon I attempted to contact patient, I called the [phone] number listed in her file, this is the only phone number I have listed for her. She did not answer I did leave a voicemail for her to return the office call if she would like to schedule a follow-up evaluation with Dr. Martin (patient was originally scheduled for follow-up evaluation with Dr. Martin however she called and was requesting to be seen sooner next availability in [place] was on my schedule on 05/05, so we did accommodate her request to be seen sooner ). She was also advised to reach out to our scheduling team to schedule for her injections. I did advise that she will need to answer her phone if she sees the office number come up on her caller ID in order for our schedulers to schedule her for the cervical injections that were discussed during her office visit. I am sorry if the patient does not feel that we spend quality time with her however I did spend more than the allotted appointment time with her reviewing her many concerns and pain complaints at the office visit. I did stress that we have to prioritize her pain complaints as we cannot address everything in 1 office visit. Also I advised her that we had reviewed her hospital notes and express care visits as well as her orthopedic consult notes. She was offered Lyrica in place of gabapentin because she was requesting something more for pain as she stated that the gabapentin was not working or helping with her pain conditions. Unfortunately were not able to prescribe her opioid medication therapy. We can offer the treatments discussed at her office visit which include injections, physical therapy and trial of Lyrica if she does not feel comfortable starting the Lyrica she may continue with her gabapentin as already prescribed and disregard Lyrica. She does not feel that we are adequately meeting her pain needs I can assist in referring her to the chronic pain clinic for [facility]. Please reach out to patient to schedule injection therapy. I have ordered cervical MBB x2 as well as hip injection as requested this week. Thank you, Bonifacio Christie APRN.HOME CARE NURSE documented in this encounter [facility] 08-13-2021 Note HNO ID: [id number] Author: Bonifacio Christie APRN.HOME CARE NURSE Service: ? Author Type: Nurse Practitioner Type: Progress Notes Filed: 08/13/2021 6:00 PM Note Text: [facility] Today's Date: 08/13/2021 Last Visit: 07/02/21 Name: Barbara Hernandez : 1965 Purpose: Established Patient Encounter Interval History: Since last encounter, Barbara Gan David; PMH significant for COPD/Emphysema, Tobacco use, alcoholism, thrombocytosis, elevated LFT's, depression, depression, Anxiety, PTSD, FM, RSD, previous laminectomy L5/S1 03/11/20; reports that the chronic problem(s) of neck and low back pain are Worse. Her spine surgeon would like the patient to try Cervical epidural injections before they can discuss surgical intervention. Since has last evaluation she has completed her Cervical MRI. She has been to [facility] x2-3 for increased pain. States she has had several falls and now is having increased RIGHT hip pain. Patient was offered medrol dosepak, states she has been ineffective for her pain. She ED gave her a RX for percocet for prn pain. She was also given a Rx for Flexeril (in which she brought to the office and decided to tear it up during her visit today). On one of her ER visits it was noted she was given morphine for pain, but the patient states they never gave me that, they just said they gave it to me. We provided her with a Rx for Baclofen which she does not find to be beneficial. States she needs an MRI of her back. States she does home exercises that do not help, she has not had therapy for her low back in the last 3-6 months. - Pain Description: ? Timing: constant ? Character: Burning, Throbbing, Spasms, Pins and [place], Numb, Tingling, Tender, Stinging, Shooting, Cramps, Aching and Dull ? Primary Location: Neck and low back, neck is worst pain today ? Radiation: LEFT shoulder and arm, RIGHT lateral/posterior leg ? Exacerbating factors: everything causes me pain ? Relieving factors: medications ? Interferes with: physical activity and everything ? The patient reports 2 hours of uninterrupted sleep per night ? The patient denies difficulty with bowel or bladder control, unintentional weight loss, fevers, chills, or night sweats, numbness or tingling; complains of constipation and arm weakness. - New Problems reported: See above Current Status: INTAKE PAIN ASSESSMENT 07/02/2021 08/13/2021 Are you having pain associated with your visit today? Yes, Provider notified Yes, Provider notified Pain Scales Verbal (Numeric Rating or Visual Analog Scale) Verbal (Numeric Rating or Visual Analog Scale) Pain Level 8 10 Pain Location (No Data) Back Description Aching;Stabbing;Shooting Aching;Stabbing;Spasm Duration Amount of Time - - Duration Units Months Months Frequency Continuous Continuous Intervention/Comfort measure Exercise Cold Comments - - Current Pain Medications: ? Opioids: None ? NSAIDS: None, states I almost after taking Meloxicam and ibuprofen ? Anti-depressants: Prozac 20 mg daily ? Anti-convulsants: Gabapentin 1200mg at HS (PCP) ? Muscle relaxants: Robaxin 750mg BID prn ? Others: OTC Tylenol prn ? Analgesia: not adequate ? Current Anti-Coagulant Use: No ? PAST Pain Medications (for the chief complaint(s)): - Opioids: Tramadol, Vicodin or [place] (Hydrocodone), Morphine and Duragesic (Fentanyl Patch) - NSAIDS: Motrin (Ibuprofen) and Mobic (Meloxicam) - Anti-depressants: Pamelor ( Nortriptyline) and ativan - Anti-convulsants: none - Muscle Relaxants: Flexeril (Cyclobenzaprine) and Zanaflex (Tizanidine) - Others: Lidoderm Patch, Voltaren Gel and Salonpas Allergies: ALLERGIES Allergen Reactions - Cortisone Hives - Latex, Natural Rubb* Rash - Penicillins Hives - Entex [Phenylephrin* Intolerance - Naprosyn [Naproxen] Rash Data Reviewed: - Reviewed personally on today's date 08/13/2021 Relevant Imaging: MRI Spine Report No resulted procedures found. XR Lumbar Spine 07/02/21: FINDINGS: There are five odk-fti-ebosklu lumbar vertebrae. No fracture or subluxations are noted. The disc spaces are well preserved. There is mild osteophyte formation. MRI Cervical Spine 07/08/21: Cervical spondylosis greatest at C4/5, C5/6, C6/7 with posterior osteophytes, mild disc bulging with mild indent of the anterior thecal sac, no significant calan stenosis or HNP. Mild FS RIGHT C4/5, moderate FS LEFT C4/5, mod FS B/L C5/6 and C6/7 XR Cervical 05/18/21: FINDINGS: No acute fractures or subluxations are noted. There appears be straightening of the cervical spine curvature. C5-6 and C6-7 disc space narrowing is demonstrated. There is mild osteophyte formation, with facet arthrosis. Multilevel bilateral neural foraminal narrowing is demonstrated. The prevertebral soft tissues are normal. ? XR LEFT Shoulder 04/27/21: IMPRESSION: Acromioclavicular osteoarthrosis. N (more content not included)... [facility] 08-13-2021 Note HNO ID: [id number] Author: Yarelis Johnson MA Service: ? Author Type: Smudger Type: Progress Notes Filed: 08/13/2021 6:00 PM Note Text: Review of Systems Constitutional: Positive for activity change, chills, fever and unexpected weight change. Gastrointestinal: Negative for bowel retention or incontinence Genitourinary: Positive for difficulty urinating. Negative for bladder retention or incontinence Musculoskeletal: Positive for arthralgias, back pain, gait problem, joint swelling, myalgias, neck pain and neck stiffness. Neurological: Positive for weakness and numbness. Negative for headaches. Psychiatric/Behavioral: Positive for dysphoric mood and sleep disturbance. Negative for suicidal ideas. The patient is nervous/anxious. [facility] 08-13-2021 Instructions Bonifacio Christie APRN.HOME CARE NURSE - 08/13/2021 1:33 PM EDT Activity as tolerated Use Ice and/or heat as tolerated as needed documented in this encounter [facility] 08-13-2021 History of Present illness Narrative Images from the original note were not included. [facility] Today's Date: 08/13/2021 Last Visit: 07/02/21 Name: Barbara Hernandez : 1965 Purpose: Established Patient Encounter Interval History: Since last encounter, Barbara Gallardon; PMH significant for COPD/Emphysema, Tobacco use, alcoholism, thrombocytosis, elevated LFT's, depression, depression, Anxiety, PTSD, FM, RSD, previous laminectomy L5/S1 03/11/20; reports that the chronic problem(s) of neck and low back pain are Worse. Her spine surgeon would like the patient to try Cervical epidural injections before they can discuss surgical intervention. Since has last evaluation she has completed her Cervical MRI. She has been to [facility] x2-3 for increased pain. States she has had several falls and now is having increased RIGHT hip pain. Patient was offered medrol dosepak, states she has been ineffective for her pain. She ED gave her a RX for percocet for prn pain. She was also given a Rx for Flexeril (in which she brought to the office and decided to tear it up during her visit today). On one of her ER visits it was noted she was given morphine for pain, but the patient states they never gave me that, they just said they gave it to me. We provided her with a Rx for Baclofen which she does not find to be beneficial. States she needs an MRI of her back. States she does home exercises that do not help, she has not had therapy for her low back in the last 3-6 months. Pain Description: ? Timing: constant ? Character: Burning, Throbbing, Spasms, Pins and [place], Numb, Tingling, Tender, Stinging, Shooting, Cramps, Aching and Dull ? Primary Location: Neck and low back, neck is worst pain today ? Radiation: LEFT shoulder and arm, RIGHT lateral/posterior leg ? Exacerbating factors: everything causes me pain ? Relieving factors: medications ? Interferes with: physical activity and everything ? The patient reports 2 hours of uninterrupted sleep per night ? The patient denies difficulty with bowel or bladder control, unintentional weight loss, fevers, chills, or night sweats, numbness or tingling; complains of constipation and arm weakness. New Problems reported: See above Current Status: INTAKE PAIN ASSESSMENT 07/02/2021 08/13/2021 Are you having pain associated with your visit today? Yes, Provider notified Yes, Provider notified Pain Scales Verbal (Numeric Rating or Visual Analog Scale) Verbal (Numeric Rating or Visual Analog Scale) Pain Level 8 10 Pain Location (No Data) Back Description Aching;Stabbing;Shooting Aching;Stabbing;Spasm Duration Amount of Time - - Duration Units Months Months Frequency Continuous Continuous Intervention/Comfort measure Exercise Cold Comments - - Current Pain Medications: ? Opioids: None ? NSAIDS: None, states I almost after taking Meloxicam and ibuprofen ? Anti-depressants: Prozac 20 mg daily ? Anti-convulsants: Gabapentin 1200mg at HS (PCP) ? Muscle relaxants: Robaxin 750mg BID prn ? Others: OTC Tylenol prn Analgesia: not adequate Current Anti-Coagulant Use: No PAST Pain Medications (for the chief complaint(s)): Opioids: Tramadol, Vicodin or [place] (Hydrocodone), Morphine and Duragesic (Fentanyl Patch) NSAIDS: Motrin (Ibuprofen) and Mobic (Meloxicam) Anti-depressants: Pamelor ( Nortriptyline) and ativan Anti-convulsants: none Muscle Relaxants: Flexeril (Cyclobenzaprine) and Zanaflex (Tizanidine) Others: Lidoderm Patch, Voltaren Gel and Salonpas Allergies: ALLERGIES Allergen Reactions Cortisone Hives Latex, Natural Rubb* Rash Penicillins Hives Entex [Phenylephrin* Intolerance Naprosyn [Naproxen] Rash Data Reviewed: Reviewed personally on today's date 08/13/2021 Relevant Imaging: MRI Spine Report No resulted procedures found. XR Lumbar Spine 07/02/21: FINDINGS: There are five vga-[id number]-vwdabee lumbar vertebrae. No fracture or subluxations are noted. The disc spaces are well preserved. There is mild osteophyte formation. MRI Cervical Spine 07/08/21: Cervical spondylosis greatest at C4/5, C5/6, C6/7 with posterior osteophytes, mild disc bulging with mild indent of the anterior thecal sac, no significant calan stenosis or HNP. Mild FS RIGHT C4/5, moderate FS LEFT C4/5, mod FS B/L C5/6 and C6/7 XR Cervical 05/18/21: FINDINGS: No acute fractures or subluxations are noted. There appears be straightening of the cervical spine curvature. C5-6 and C6-7 disc space narrowing is demonstrated. There is mild osteophyte formation, with facet arthrosis. Multilevel bilateral neural foraminal narrowing is demonstrated. The prevertebral soft tissues are normal. XR LEFT Shoulder 04/27/21: IMPRESSION: Acromioclavicular osteoarthrosis. No acute osseous abnormality identified. MRI RIGHT Hip 06/29/19: Mild narrowing of the articular hip join, normal labrum and femoral head. No fx. Normal gluteus minimus and kesha Electrodiagnostic Study (EMG): None Recent labs: Creatinine Date Value Ref Range Status 02/26/2021 0.68 0.58 - 0.96 mg/dL Final @lastegfr(gfr)@ No results found for: PCGLUCOSE Pain Procedures: DATE PROCEDURE IMPROVEMENT None to date at this practice Compliance: PDMP website checked and validated. All prescriptions have been APPROPRIATELY filled. No suspicious activity was identified. Various Rx for opioids from outside providers 08/13/2021 by Bonifacio Christie APRN.HOME CARE NURSE RX Oxycodone 5/325, #15 tabs on 08/04/21 RX hydrocodone 5/325mg, #9 tabs 04/29/21 RX Hydrocodone 5/325mg, #6 tabs 04/10/21 RX Tramadol 50mg, #28 tabs, 02/28/21 RX Tramadol 50mg, #10 tabs, 02/26/21 Last Drug screen: Not Applicable Risk Assessment: JOÃO-7: JOÃO - 7 SCORES 07/02/2021 JOÃO-7 Score 14 (0-4) minimal anxiety, (5-9) mild anxiety, (10-14) moderate anxiety, (15-21) severe anxiety PHQ-9: PHQ-9 01/08/2015 12/10/2015 08/04/2016 Score 18 10 10 (0-4) minimal depression, (5-9) mild depression, (10-14) moderate depression, (15-19) moderately severe depression, (20-27) severe depression Current Medications, Past Medical History, Past Surgical History, Family History, Social History and Review of Systems: On today's date, 08/13/2021, noted above, I have confirmed and edited as necessary, the PFSH and ROS obtained by others. Physical Exam: 08/13/21 1305 Pulse: 96 Resp: 16 SpO2: 98% Constitutional: underweight HEENT: Normal Cephalic, Atraumatic, Non-icteric sclera Eyes: Conjunctiva clear. No discharge from eyes Cardiovascular: Appears well perfused Lymphatic: No visible regional lymphadenopathy Skin: No visible rashes or ecchymosis Psychiatric: Full affect, Alert, Pleasant CERVICAL MUSCULOSKELETAL/NEURO EXAM: Inspection: - Symmetric without atrophy Posture: Normal intact spinal curves Gait: Normal Heel Walk: Normal bilaterally Toe Walk: Normal bilaterally Tandem Walk: Intact Cervical Range of Motion: - Flexion: Full with pain - Extension: Limited with pain - Rotation: Full with pain - Lateral Rotation: Limited with pain Palpation: LEFT RIGHT Cervical Paraspinal Tenderness Positive Positive Levator Scapulae Negative Negative Trapezius Negative Negative Rhomboids Negative Negative (Other) Deferred Deferred Paraspinal spasm: None Greater Occipital Nerves: no tenderness in overlying tissue Cervical Facet Loading Positive Positive Strength: LEFT RIGHT Deltoid (C5) 5 5 Biceps (C6) 5 5 Triceps (C7) 4+ 5 Wrist Extensors (C8) 5 5 Abduct. Pollis Brevis (T1) 5 5 Muscle Tone: - Normal and symmetric Axial compression: - Does not elicit radicular symptoms in the Bilateral upper limbs Spurling: - Positive on the RIGHT, Negative on the LEFT Sensation: - Grossly intact to light touch in the C5-T1 Bilateral upper limb dermatomes. Reflexes: LEFT RIGHT Bicep (C5) Normal 2+ Normal 2+ Brachioradialis (C6) Normal 2+ Normal 2+ Triceps (C7) Normal 2- Normal 2+ Good absent absent LUMBAR MUSCULOSKELETAL/NEURO EXAM Inspection: - Symmetric without atrophy Posture: loss of lordosis Spine Range of Motion: - Flexion: Full with pain - Extension: Full with pain -Rotation: Full with pain Palpation: - Lumbar Paraspinal Tenderness: Concordant in the Bilateral lumbar paraspinals - Paraspinal Spasms: None - Facet Loading: Right-positive; Left-positive - Greater Trochanter: None tenderness Bilateral Strength: LEFT RIGHT Iliopsoas (L2) 5 5 Quadriceps (L3) 5 5 Anterior Tibialis (L4): 5 5 Exten Hallucis Longus (L5) 5 5 Gastrocnemius (S1): 5 5 Muscle Tone: - Normal and symmetric Neural Tension Signs: -Straight Leg Exam Positive; 45 degrees Right lower limb(s) -Contralateral Straight Leg Raise Negative Bilateral lower limb(s) Sensation: - intact to light touch in the L2-S2 Bilateral lower limb dermatomes Reflexes: LEFT RIGHT Patellar (L4) Normal 2+ Normal 2+ Achilles (S1) Normal 2+ Normal 2+ Clonus Negative Negative Sacroiliac Maneuvers: - SIJ tenderness: Negative Bilateral - Saul's: negative (reproduced no pain) Vielka's Signs: Superficial non-anatomic tenderness: Yes Overreaction: No Pain on simulated maneuvers: Yes Straight Leg Raise test discrepancy: No Give-way weakness: Yes Non-dermatomal sensory loss: Yes Diagnoses: (M54.9, G89.29) Other chronic back pain (primary encounter diagnosis) (M96.1) Post laminectomy syndrome (M47.812) Cervical spondylosis without myelopathy (M25.512, G89.29) Chronic left shoulder pain (F17.200) Tobacco use disorder (M54.16) Radiculopathy of lumbar region Impression & Plan: 55 year old female with significant past medical history for COPD/Emphysema, Tobacco use, alcoholism, thrombocytosis, elevated LFT's, depression, depression, Anxiety, PTSD, FM, RSD,and previous laminectomy L5/S1 03/11/20; who presents with complaint(s) of worsening neck and low back pain. Patient is also complaining of increased right hip pain as well is diffuse generalized aches and pains. Patient repeatedly expresses that she cannot live her daily life because of her severe pain and nobody will help her. She has been to the ED in [facility] 3-4 times since her last evaluation for pain related complaints. She did have follow up with her Orthopaedic Spine surgery, non-op therapy was recommended as well as smoking cessation Updated Lumbar XR and Cervical MRI demonstrates : Lumbar mild degenerative findings, no spondylolisthesis, disc spaces are well maintained. Cervical MRI FINDINGS: Cervical spondylosis greatest at C4/5, C5/6, C6/7 with posterior osteophytes, mild disc bulging with mild indent of the anterior thecal sac, no significant calan stenosis or HNP. Mild FS RIGHT C4/5, moderate FS LEFT C4/5, mod FS B/L C5/6 and C6/7 She did have an updated hip x-ray at one of her ER visits which was noted to be without any significant findings. She did have an MRI of the right hip 06/2019 which noted mild degenerative changes without any other significant abnormalities appreciated at that time. Patient repeatedly need to be redirected throughout her visit, she appears to be a poor historian regarding to her symptoms, she often contradicts her pain complaints and symptoms throughout her office visit. Today she adamantly denies any shoulder, arm or radicular symptoms. She primarily complains of axial neck pain, severe low back pain however she is neurologically intact and does not have any red flag symptoms bowel or bladder changes noted today. She is also complaining of increased right hip pain. She is currently taking gabapentin at bedtime and does not find this to be effective therapy states she has been on this for over 20 years. At one of her ER visit she received a small prescription for Percocet she finds this to be most effective and she is hoping for repeat refill today. She has not had any recent formal physical therapy for her lumbar related issues in the last 3 to 6 months, she states therapy will only make her worse that she regularly does her home exercises that she has learned in the past with therapy and find these exercises to make her pain worse. Barbara Hernandez would benefit from the following to decrease pain, improve function and/or work participation, and improve quality of life: Interventional Procedure(s): Cervical MBB B/L C4/5, C5/6, C6/7 with fluoro x2 The risks, benefits, alternative treatment options and prognosis of the procedure were discussed and all of the patient's questions/concerns were addressed to the patient's satisfaction. The patient expressed understanding and gave verbal consent to proceed. Medications: Start: Signed Prescriptions Disp Refills iv contrast (will be provided with radiology test) 1 Each 0 Sig: MRI LSP Inject, intravenously, once for 1 dose. No IV access, insert saline lock prior to the beginning of sedation, infusion, injection of imaging exam. Discontinue saline lock post exam. If Pt. has a central line or IVAD, may access for administration according to line specific nursing protocol. Once exam is complete flush line and de-access according to line specific nursing protocol in the MR contrast administration guidelines link. pregabalin (LYRICA) 50 mg capsule 90 capsule 1 Sig: Take 1 capsule by mouth three times daily for 30 days. Take one pill at night for one week, then add one pill in the morning for one week, then take on pill 3 times per day thereafter MARY BETH Class: C-V o She will stop the gabapentin and start Lyrica as directed above ORT is up to date Functional Denominational: Physical Therapy (Land-based) Additional Studies: MRI Lumbar Spine w/w/o contrast Referrals: None Additional: Today we had a very lengthy and extensive conversation regarding her multiple pain complaints and and potential treatment options. Patient was previously established with Dr. Maynard and states that she is undergone injection therapy with no relief. Seems that most of her lumbar injections were done prior to her laminectomy. She did have surgical consultation with her previous spine surgeon who does not recommend cervical spine surgery at this time but instead is encouraging patient to work on smoking cessation and trial injection therapy. Again she adamantly denies any radicular symptoms today. We discussed that if she does develop radicular symptoms a cervical epidural would be most beneficial. She is primary complaining of axial cervical pain. Is consistent with the degenerative changes noted on her MRI. She agrees to trial cervical MBB's with potential for cervical ablation if she has a positive response. She has not had any recent conservative therapy for her lumbar spine issues. I did advise without recent conservative therapy and relatively benign neurological exam and no red flag symptoms that this will likely be denied. Patient is adamant that an MRI be ordered I have provided order but she understands that if it is denied she is going to need to complete therapy. I did provide an order for her today and I strongly advised that she start therapy. We can consider right hip injection, lumbar treatment will to be dependent on her response to physical therapy and if an MRI is needed. She is requesting refill for Percocet today. I did advise we will not prescribing her any opioids. The most I am willing to do for her at this time is that we can either adjust her current gabapentin prescription or we will transition her to Lyrica. Lyrica may be a better option given the diffuse chronicity of her multiple pain complaints. She does not want to continue on gabapentin so we will have her discontinue this and we will trial Lyrica as detailed above. If patient fails Lyrica therapy or does not tolerate and she is unresponsive to injection therapy will recommend referral to chronic pain rehab services. Smoking cessation is strongly encouraged, she can discuss Patient is agreeable with this plan. All questions were answered and patient verbalized understanding. Depending on response to the above plan, consider: See above Follow-up: 2 days post Cervical MBB and 2 months OV for evaluation of response to treatment plan and optimization Attribution: In addition to reviewing the information noted above, some elements copied from my most recent clinical note(s), including the physical exam (completed in entirety today), and the impression and plan sections, have been updated where appropriate. All reflect current medical decision making from today's date. Bonifacio Christie APRN.[facility] Review of Systems Constitutional: Positive for activity change, chills, fever and unexpected weight change. Gastrointestinal: Negative for bowel retention or incontinence Genitourinary: Positive for difficulty urinating. Negative for bladder retention or incontinence Musculoskeletal: Positive for arthralgias, back pain, gait problem, joint swelling, myalgias, neck pain and neck stiffness. Neurological: Positive for weakness and numbness. Negative for headaches. Psychiatric/Behavioral: Positive for dysphoric mood and sleep disturbance. Negative for suicidal ideas. The patient is nervous/anxious. documented in this encounter [facility] 08-11-2021 Miscellaneous Notes Records from [facility] placed into scan Montse Palma APRN.HOME CARE NURSE documented in this encounter [facility] 08-04-2021 Miscellaneous Notes Patient has left me another voicemail stating that this is her last voicemail that someone needs to either text her or to message her back on [employer]. She can not receive viocemail's and that she has spoken to about 30 different people about this already. Tiffanie Grace documented in this encounter [facility] 08-04-2021 Miscellaneous Notes 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 She was given morphine at the first ED visit and feels that they did not really give her morphine since she did not feel any different. She says that she had a recent MRI at [facility]. The only MRI that I see In the chart is a hip MRI from 2019. Please call [facility] and see if they can send us her most recent MRI and find out what body part it was on. . She has an appointment with Bonifacio on 08/13. There is not much that can be done until then. I can send in a prednisone dose pack. Does she want to try that? documented in this encounter [facility] 08-03-2021 History of Present illness Narrative Patient presents with: Right Hip Pain HPI: Right hip pain: Duration: hurt her right hip this morning walking and turning. She went the ER today. She presents to the [facility] because she was in the building getting a lab test to see if she was really given morphine (she does not think she was) Location: Right posterior hip, some into the groin Character: dull, aching, burning, cramping, sharp, shooting and throbbing; worse since ER discharge Radiation: Down the side of the right leg Aggravating: sitting, standing and walking Relieving: none Pain relievers: Gabapentin, acetaminophen, she is unable to take meloxicam any longer. morphine in the ER today did not help Associated: Chronic neck and back pain, weakness Pertinent negatives: Denies numbness, fever MEDICATIONS: albuterol HFA (PROVENTIL HFA, VENTOLIN HFA) 90 mcg/actuation inhaler Inhale 2 Puffs as instructed every 4 hours as needed for wheezing/shortness of breath. Patient requests VENTOLIN please. With spacer please. acetaminophen (TYLENOL EXTRA STRENGTH) 500 mg tablet Take 2 tablets by mouth every 6 hours as needed for pain. gabapentin (NEURONTIN) 300 mg capsule Take 4 capsules by mouth daily at bedtime for 120 days. FLUoxetine (PROZAC) 20 mg capsule Take 4 capsules by mouth daily at bedtime. atorvastatin (LIPITOR) 20 mg tablet Take 1 tablet by mouth once daily. baclofen (LIORESAL) 10 mg tablet Take 1 tablet by mouth twice daily. ALLERGIES: ALLERGIES Allergen Reactions Cortisone Hives Latex, Natural Rubb* Rash Penicillins Hives Entex [Phenylephrin* Intolerance Naprosyn [Naproxen] Rash VITALS: BP 164/98 Pulse 116 Temp 36.8 C (98.2 F) Resp 18 Wt 49.6 kg (109 lb 6.4 oz) LMP 08/06/2014 (LMP Unknown) SpO2 97% BMI 17.66 kg/m PHYSICAL EXAM: GEN: no acute distress, alert, lean HEENT: PERRL, EOMI, NECK: supple, HEART: regular rate, regular rhythm, no murmurs LUNGS: clear to auscultation, no wheezes or crackles, no increased WOB BACK: Normal curvature of spine. No midline tenderness. Right lumbar paraspinal tenderness. Straight leg test negative on the left, tightness on the right. Normal lower extremity strength and gait. HIP: Painful internal/external rotation. Non-tender over the greater trochanter. NEURO: meandering history, ASSESSMENT/PLAN: 1. Pain in joint involving right pelvic region and thigh - ICD9: 719.45, ICD10: M25.551 Exacerbation of chronic radicular right leg pain. Xray at the ER today was negative. She is seeing pain management and spine surgery. She has multiple messages in to pain management today. - DRUG SCREEN, BLOOD was ordered by her PCP at her request. I performed a physical exam since she reports the ER provider did not examine her. Continue pain regimen as prescribed by pain management. Note forwarded to Bonifacio Christie CNP in PM as an update, patient is requesting a sooner appointment. She has a new telephone; I offered to put her new number in the EMR, but she says she is keeping her old phone and number also. Remote home number removed. Caleb Recio MD documented in this encounter [facility] 08-03-2021 Miscellaneous Notes See if someone can see her sooner- Montse Palma APRN.[facility] This patient keeps calling and she has sent my chart messages as well. Can someone please give her a call as soon as possible. Tiffanie Grace Patient has left me two voicemail's now today stating that she has hurt her hip and is in the ER they want to give her a shot but she needed to call her doctor first because of the contract she has with use. She has a new number now because she said she never received phone calls last week. [phone] is her new number. Her next appointment is 08/13/21 and there is no openings in the [facility] office until that date. She is requesting that someone calls her today. Tiffanie Grace documented in this encounter [facility] 07-16-2021 Miscellaneous Notes Records from [facility] received and placed into scan Montse Palma APRN.HOME CARE NURSE documented in this encounter [facility] 07-09-2021 Miscellaneous Notes Please advise patient we are not the ordering provider for the MRI so I do not have the results for review. If she had it completed yesterday, its not likely been read by the radiologist yet. Her Lumbar XR did not demonstrate any concerning abnormalities, minimal arthritic changes. If her pain is severe she will need to go to ER for treatment. I am still waiting for her pain management records for review. Please update patient. Thank you, Bonifacio Christie APRN.[facility] documented in this encounter [facility] 07-02-2021 Note HNO ID: [id number] Author: Bonifacio Chirstie APRN.CNP Service: ? Author Type: Nurse Practitioner Type: Progress Notes Filed: 07/02/2021 11:50 AM Note Text: [facility] [facility] Today's Date: 07/02/2021 Last Visit: N/A Name: Barbara Hernandez : 1965 Purpose: New Patient Consultation Chief complaint: Chronic neck and low back pain Interval History: N/A Initial HPI: (Obtained on 07/02/2021) Barbara Hernandez is a 55 year old year-old female; PMH significant for COPD/Emphysema, Tobacco use, depression, depression, Anxiety, PTSD, FM, RSD; who presents having been referred by Yefri Lara, for evaluation and management of the above-mentioned chief complaint. She was previously established with parking line painter, Dr. Wharton about 8 months ago. States they had a disagreement and she left the practice, but the practice sent her a dismissal. - This has been present for >30 years. The onset of symptoms was gradual and was without associated trauma. States previous lumbar microdecompression in [address] Spicer, Edith Serna. Per patient Cervical Surgery was recently recommended, however she is not ready for surgical intervention at this time. States the has had STEWART in the past with Dr. Wharton, sometimes relieved her symptoms and sometimes it did not. She has also had several lumbar injections with similar results. States she was on hydrocodone and this managed her pain well while in pain management previously. - Treatments to date include the following: Medications (See below), Injections (See below), Surgery (See below), Modalities (eg. Heat, Ice), Physical Therapy , Chiropractic Full Treatment , Massage, Acupuncture and TENS. - Pain Description: o Timing: constant o Character: Burning, Throbbing, Spasms, Pins and [place], Numb, Tingling, Tender, Stinging, Shooting, Cramps, Aching and Dull o Primary Location: Neck and low back, neck is worst pain today o Radiation: LEFT shoulder and arm, RIGHT lateral/posterior leg o Exacerbating factors: everything causes me pain o Relieving factors: medications o Interferes with: physical activity and everything o The patient reports 2 hours of uninterrupted sleep per night o The patient denies difficulty with bowel or bladder control, unintentional weight loss, fevers, chills, or night sweats, numbness or tingling; complains of constipation and arm weakness. . She is pending updated cervical MRI, ordered by Dr. Spicer, however she cancelled due to having such severe pain. She has not rescheduled. She was also seen by Ortho for her LEFT shoulder, advised likely cervical pathology. Recommended EMG/NCT to further evaluate her symptoms, she has not scheduled. Current Status: INTAKE PAIN ASSESSMENT 05/19/2021 07/02/2021 Are you having pain associated with your visit today? Yes, Provider notified Yes, Provider notified Pain Scales Verbal (Numeric Rating or Visual Analog Scale) Verbal (Numeric Rating or Visual Analog Scale) Pain Level 10 8 Pain Location Shoulder-Left (No Data) Description Aching;Sharp;Sore Aching;Stabbing;Shooting Duration Amount of Time 1 - Duration Units Months Months Frequency Continuous Continuous Intervention/Comfort measure Medication Exercise Comments - - Current Pain Medications: o Opioids: None o NSAIDS: None, states I almost after taking Meloxicam and ibuprofen o Anti-depressants: Prozac 20 mg daily o Anti-convulsants: Gabapentin 1200mg at HS (PCP) o Muscle relaxants: Robazin 750mg BID prn o Others: OTC Tylenol prn - Analgesia: not adequate Current Anti-Coagulant Use: No PAST Pain Medications (for the chief complaint(s)): - Opioids: Tramadol, Vicodin or [place] (Hydrocodone), Morphine and Duragesic (Fentanyl Patch) - NSAIDS: Motrin (Ibuprofen) and Mobic (Meloxicam) - Anti-depressants: Pamelor ( Nortriptyline) and ativan - Anti-convulsants: none - Muscle Relaxants: Flexeril (Cyclobenzaprine) and Zanaflex (Tizanidine) - Others: Lidoderm Patch, Voltaren Gel and Salonpas Allergies: ALLERGIES Allergen Reactions - Cortisone Hives - Latex, Natural Rubb* Rash - Penicillins Hives - Entex [Phenylephrin* Intolerance - Naprosyn [Naproxen] Rash Data Reviewed: - Reviewed personally on today's date 07/02/2021 Relevant Imaging: MRI Spine Report No resulted procedures found. XR Cervical 05/18/21 FINDINGS: No acute fractures or subluxations are noted. There appears be straightening of the cervical spine curvature. C5-6 and C6-7 disc space narrowing is demonstrated. There is mild osteophyte formation, with facet arthrosis. Multilevel bilateral neural foraminal narrowing is demonstrated. The prevertebral soft tissues are normal. XR LEFT Shoulder 04/27/21: IMPRESSION: Acromioclavicular osteoarthrosis. No acute osseous abnormality identified. Electrodiagnostic Study (EMG): None Recent labs: Creatinine (more content not included)... [facility] 07-02-2021 Note HNO ID: [id number] Author: Yarelis Johnson MA Service: ? Author Type: Smudger Type: Progress Notes Filed: 07/02/2021 11:50 AM Note Text: Review of Systems Constitutional: Positive for chills. Negative for activity change, fever and unexpected weight change. Gastrointestinal: Negative for bowel retention or incontinence Genitourinary: Negative for difficulty urinating. Negative for bladder retention or incontinence Musculoskeletal: Positive for arthralgias, back pain, gait problem, joint swelling, myalgias, neck pain and neck stiffness. Neurological: Positive for weakness, numbness and headaches. Psychiatric/Behavioral: Positive for dysphoric mood and sleep disturbance. Negative for suicidal ideas. The patient is not nervous/anxious. [facility] 07-02-2021 History of Present illness Narrative Radiology Service Progress Note PATIENT NAME: Barbara Hernandez DATE OF SERVICE: July 02, 2021 TIME: 11:01 AM PATIENT IDENTITY VERIFICATION COMPLETED USING TWO (2) IDENTIFIERS: Name and Date of confirmed by patient verbally. FALL SCREENING: Has the patient had 2 falls in the last year or 1 fall with injury or currently using an Ambulatory Assistive Device (Walker, Cane, Wheelchair, Crutches, etc.)? No PATIENT GENDER DATA: Female. status: : No status: NO. PATIENT RELEVANT IMPLANT DATA REVIEWED: Yes RADIOLOGY DEPARTMENT: General X-ray: Exam(s) Completed: Spine X-Ray(s): Lumbar AP / LAT / L5-S1 / FLEX-EXT PERIPHERAL IV DATA: Not applicable SIGNED BY: Blanca Dawson RT(R) July 02, 2021 11:01 AM documented in this encounter [facility] 05-26-2021 Miscellaneous Notes CD READY FOR LINK ASSEMBLER AT [facility] [place] Patient is request ing x-rays from 05/18 copied to a disk for shrimp picker[ documented in this encounter [facility] 05-08-2021 History of Past i llness Narrative Problem Noted Date Diagnosed Date Resolved Date Left shoulder pain 05/08/2021 4 Cervicalgia 05/08/2021 06/27/2023 Nightmares associated with c hronic post-traumatic stress disorder 09/21/2017 4 NO SHOW 09/04/2014 12/10/2015 RSD (reflex sympathetic dystrophy) 03/28/2013 06/27/2023 Overview: Right upper extremity Inflammatory polyarthropathy 03/28/2013 01/11/2022 Overview: Seeing Dr. Bergman Hot flashes 02/28/2013 02/27/2021 Hip pain 02/07/2013 01/11/2022 Complicated grief 06/23/2011 02/02/2021 documented as of this encounter (statuses as of 06/28/2023) [facility] History of Past illness Narrative* Problem Noted Date Diagnosed Date Resolved Date Left shoulder pain 05/08/2021 4 Cervicalgia 05/08/2021 06/27/2023 Nightmares associated with c hronic post-traumatic stress disorder 09/21/2017 4 NO SHOW 09/04/2014 12/10/2015 RSD (reflex sympathetic dystrophy) 03/28/2013 06/27/2023 Overview: Right upper extremity Inflammatory polyarthropathy 03/28/2013 01/11/2022 Overview: Seeing Dr. Bergman Hot flashes 02/28/2013 02/27/2021 Hip pain 02/07/2013 01/11/2022 Complicated grief 06/23/2011 02/02/2021 documented as of this encounter (statuses as of 06/30/2023) [facility] History of Past illness Narrative* Problem Noted Date Diagnosed Date Resolved Date Left shoulder pain 05/08/2021 4 Cervicalgia 05/08/2021 06/27/2023 Nightmares associated with c hronic post-traumatic stress disorder 09/21/2017 4 NO SHOW 09/04/2014 12/10/2015 RSD (reflex sympathetic dystrophy) 03/28/2013 06/27/2023 Overview: Right upper extremity Inflammatory polyarthropathy 03/28/2013 01/11/2022 Overview: Seeing Dr. Bergman Hot flashes 02/28/2013 02/27/2021 Hip pain 02/07/2013 01/11/2022 Complicated grief 06/23/2011 02/02/2021 documented as of this encounter (statuses as of 07/01/2023) [facility] History of Past illness Narrative* Problem Noted Date Diagnosed Date Resolved Date Left shoulder pain 05/08/2021 4 Cervicalgia 05/08/2021 06/27/2023 Nightmares associated with c hronic post-traumatic stress disorder 09/21/2017 4 NO SHOW 09/04/2014 12/10/2015 RSD (reflex sympathetic dystrophy) 03/28/2013 06/27/2023 Overview: Right upper extremity Inflammatory polyarthropathy 03/28/2013 01/11/2022 Overview: Seeing Dr. Bergman Hot flashes 02/28/2013 02/27/2021 Hip pain 02/07/2013 01/11/2022 Complicated grief 06/23/2011 02/02/2021 documented as of this encounter (statuses as of 07/01/2023) [facility] History of Present illness Narrative* Cherie oSlorio, RT(R) - 04/27/2021 12:40 PM EST Radiology Service Progress Note PATIENT NAME: Barbara Hernandez DATE OF SERVICE: April 27, 2021 TIME: 12:52 PM PATIENT IDENTITY VERIFICATION COMPLETED USING TWO (2) IDENTIFIERS: Name and Date of confirmedby patient verbally. FALL SCREENING: Has the patient had 2 falls in the last year or 1 fall with injury or currently using an Ambulatory Assistive Device (Walker, Cane, Wheelchair, Crutches, etc.)? No PATIENT GENDER DATA: Female. status: : No status: NO. PATIENT RELEVANT IMPLANT DATA REVIEWED: Not Applicable RADIOLOGY DEPARTMENT: General X-ray: Exam(s) Completed: Upper Extremity X- Ray(s): Shoulder, AP / TRUE AP / AXILLARY left PERIPHERAL IV DATA: Not applicable SIGNED BY: RT Waqas(R) April 27, 2021 12:52 PM [facility] of Past illness Narrative* Problem Noted Date Resolved Date NO SHOW 09/04/2014 12/10/2015 Hot flashes 02/28/2013 02/27/2021 Complicated grief 06/23/2011 02/02/2021 documented as of this encounter (statuses as of 06/17/2021) [address]24-2015 History of Past illness Narrative* Problem Noted Date Resolved Date NO SHOW 09/04/2014 12/10/2015 Hot flashes 02/28/2013 02/27/2021 Complicated grief 06/23/2011 02/02/2021 documented as of this encounter (statuses as of 07/03/2021) [address]24[address]2015 History of Past illness Narrative* Problem Noted Date Resolved Date NO SHOW 09/04/2014 12/10/2015 Hot flashes 02/28/2013 02/27/2021 Complicated grief 06/23/2011 02/02/2021 documented as of this encounter (statuses as of 07/09/2021) [facility] of [facility] Narrative* Problem Noted Date Resolved Date NO SHOW 09/04/2014 12/10/2015 Hot flashes 02/28/2013 02/27/2021 Complicated grief 06/23/2011 02/02/2021 documented as of this encounter (statuses as of 07/16/2021) [address]24[address]2015 History of Past illness Narrative* Problem Noted Date Resolved Date NO SHOW 09/04/2014 12/10/2015 Hot flashes 02/28/2013 02/27/2021 Complicated grief 06/23/2011 02/02/2021 documented as of this encounter (statuses as of 07/23/2021) [address]24[address]2015 History of Past illness Narrative* Problem Noted Date Resolved Date NO SHOW 09/04/2014 12/10/2015 Hot flashes 02/28/2013 02/27/2021 Complicated grief 06/23/2011 02/02/2021 documented as of this encounter (statuses as of 08/03/2021) [facility] of Past illness Narrative* Problem Noted Date Resolved Date NO SHOW 09/04/2014 12/10/2015 Hot flashes 02/28/2013 02/27/2021 Complicated grief 06/23/2011 02/02/2021 documented as of this encounter (statuses as of 08/03/2021) [address]24[address]2015 History of Past illness Narrative* Problem Noted Date Resolved Date NO SHOW 09/04/2014 12/10/2015 Hot flashes 02/28/2013 02/27/2021 Complicated grief 06/23/2011 02/02/2021 documented as of this encounter (statuses as of 08/04/2021) [address]24[address]2015 History of Past illness Narrative* Problem Noted Date Resolved Date NO SHOW 09/04/2014 12/10/2015 Hot flashes 02/28/2013 02/27/2021 Complicated grief 06/23/2011 02/02/2021 documented as of this encounter (statuses as of 08/04/2021) [address]24[address]2015 History of Past illness Narrative* Problem Noted Date Resolved Date NO SHOW 09/04/2014 12/10/2015 Hot flashes 02/28/2013 02/27/2021 Complicated grief 06/23/2011 02/02/2021 documented as of this encounter (statuses as of 08/05/2021) [address]24[address]2015 History of Past illness Narrative* Problem Noted Date Resolved Date NO SHOW 09/04/2014 12/10/2015 Hot flashes 02/28/2013 02/27/2021 Complicated grief 06/23/2011 02/02/2021 documented as of this encounter (statuses as of 08/11/2021) [address]24[address]2015 History of Past illness Narrative* Problem Noted Date Resolved Date NO SHOW 09/04/2014 12/10/2015 Hot flashes 02/28/2013 02/27/2021 Complicated grief 06/23/2011 02/02/2021 documented as of this encounter (statuses as of 08/13/2021) [address]24[address]2015 History of Past illness Narrative* Problem Noted Date Resolved Date NO SHOW 09/04/2014 12/10/2015 Hot flashes 02/28/2013 02/27/2021 Complicated grief 06/23/2011 02/02/2021 documented as of this encounter (statuses as of 08/13/2021) [address]24[address]2015 History of Past illness Narrative* Problem Noted Date Resolved Date NO SHOW 09/04/2014 12/10/2015 Hot flashes 02/28/2013 02/27/2021 Complicated grief 06/23/2011 02/02/2021 documented as of this encounter (statuses as of 08/20/2021) [address]24[address]2015 History of Past illness Narrative* Problem Noted Date Resolved Date NO SHOW 09/04/2014 12/10/2015 Hot flashes 02/28/2013 02/27/2021 Complicated grief 06/23/2011 02/02/2021 documented as of this encounter (statuses as of 08/21/2021) [address]24[address]2015 History of Past illness Narrative* Problem Noted Date Resolved Date NO SHOW 09/04/2014 12/10/2015 Hot flashes 02/28/2013 02/27/2021 Complicated grief 06/23/2011 02/02/2021 documented as of this encounter (statuses as of 09/16/2021) [address]24[address]2015 History of Past illness Narrative* Problem Noted Date Resolved Date NO SHOW 09/04/2014 12/10/2015 Hot flashes 02/28/2013 02/27/2021 Complicated grief 06/23/2011 02/02/2021 documented as of this encounter (statuses as of 09/22/2021) [address]24[address]2015 History of Past illness Narrative* Problem Noted Date Resolved Date NO SHOW 09/04/2014 12/10/2015 Hot flashes 02/28/2013 02/27/2021 Complicated grief 06/23/2011 02/02/2021 documented as of this encounter (statuses as of 09/22/2021) [address]24[address]2015 History of Past illness Narrative* Problem Noted Date Resolved Date NO SHOW 09/04/2014 12/10/2015 Hot flashes 02/28/2013 02/27/2021 Complicated grief 06/23/2011 02/02/2021 documented as of this encounter (statuses as of 09/23/2021) [address]24[address]2015 History of Past illness Narrative* Problem Noted Date Resolved Date NO SHOW 09/04/2014 12/10/2015 Hot flashes 02/28/2013 02/27/2021 Complicated grief 06/23/2011 02/02/2021 documented as of this encounter (statuses as of 09/25/2021) [address]24[address]2015 History of Past illness Narrative* Problem Noted Date Resolved Date NO SHOW 09/04/2014 12/10/2015 Hot flashes 02/28/2013 02/27/2021 Complicated grief 06/23/2011 02/02/2021 documented as of this encounter (statuses as of 10/01/2021) [address]24[address]2015 History of Past illness Narrative* Problem Noted Date Resolved Date NO SHOW 09/04/2014 12/10/2015 Hot flashes 02/28/2013 02/27/2021 Complicated grief 06/23/2011 02/02/2021 documented as of this encounter (statuses as of 10/05/2021) [address]24[address]2015 History of Past illness Narrative* Problem Noted Date Resolved Date NO SHOW 09/04/2014 12/10/2015 Hot flashes 02/28/2013 02/27/2021 Complicated grief 06/23/2011 02/02/2021 documented as of this encounter (statuses as of 10/07/2021) [address]24[address]2015 History of Past illness Narrative* Problem Noted Date Resolved Date NO SHOW 09/04/2014 12/10/2015 Hot flashes 02/28/2013 02/27/2021 Complicated grief 06/23/2011 02/02/2021 documented as of this encounter (statuses as of 10/22/2021) [address]24[address]2015 History of Past illness Narrative* Problem Noted Date Resolved Date NO SHOW 09/04/2014 12/10/2015 Hot flashes 02/28/2013 02/27/2021 Complicated grief 06/23/2011 02/02/2021 documented as of this encounter (statuses as of 10/22/2021) [address]24[address]2015 History of Past illness Narrative* Problem Noted Date Resolved Date NO SHOW 09/04/2014 12/10/2015 Hot flashes 02/28/2013 02/27/2021 Complicated grief 06/23/2011 02/02/2021 documented as of this encounter (statuses as of 10/27/2021) [address]24[address]2015 History of Past illness Narrative* Problem Noted Date Resolved Date NO SHOW 09/04/2014 12/10/2015 Hot flashes 02/28/2013 02/27/2021 Complicated grief 06/23/2011 02/02/2021 documented as of this encounter (statuses as of 11/18/2021) [address]24[address]2015 History of Past illness Narrative* Problem Noted Date Resolved Date NO SHOW 09/04/2014 12/10/2015 Hot flashes 02/28/2013 02/27/2021 Complicated grief 06/23/2011 02/02/2021 documented as of this encounter (statuses as of 11/30/2021) [address]24[address]2015 History of Past illness Narrative* Problem Noted Date Resolved Date NO SHOW 09/04/2014 12/10/2015 Hot flashes 02/28/2013 02/27/2021 Complicated grief 06/23/2011 02/02/2021 documented as of this encounter (statuses as of 12/23/2021) [address]2015 History of Past illness Narrative* Problem Noted Date Resolved Date NO SHOW 09/04/2014 12/10/2015 Hot flashes 02/28/2013 02/27/2021 Complicated grief 06/23/2011 02/02/2021 documented as of this encounter (statuses as of 01/11/2022) [address]2015 History of Past illness Narrative* Problem Noted Date Resolved Date NO SHOW 09/04/2014 12/10/2015 Inflammatory polyarthropathy 03/28/2013 Overview: Seeing Dr. Bergman Hot flashes 02/28/2013 02/27/2021 Hip pain 02/07/2013 01/11/2022 Complicated grief 06/23/2011 02/02/2021 documented as of this encounter (statuses as of 01/11/2022) [facility] Narrative* Problem Noted Date Resolved Date NO SHOW 09/04/2014 12/10/2015 Inflammatory polyarthropathy 03/28/2013 Overview: Seeing Dr. Bergman Hot flashes 02/28/2013 02/27/2021 Hip pain 02/07/2013 01/11/2022 Complicated grief 06/23/2011 02/02/2021 documented as of this encounter (statuses as of 03/25/2022) [facility] Narrative* Problem Noted Date Resolved Date NO SHOW 09/04/2014 12/10/2015 Inflammatory polyarthropathy 03/28/2013 Overview: Seeing Dr. Bergman Hot flashes 02/28/2013 02/27/2021 Hip pain 02/07/2013 01/11/2022 Complicated grief 06/23/2011 02/02/2021 documented as of this encounter (statuses as of 04/13/2022) [facility]ative* Problem Noted Date Resolved Date NO SHOW 09/04/2014 12/10/2015 Inflammatory polyarthropathy 03/28/2013 Overview: Seeing Dr. Bergman Hot flashes 02/28/2013 02/27/2021 Hip pain 02/07/2013 01/11/2022 Complicated grief 06/23/2011 02/02/2021 documented as of this encounter (statuses as of 05/19/2022) [facility]arrative* Problem Noted Date Resolved Date NO SHOW 09/04/2014 12/10/2015 Inflammatory polyarthropathy 03/28/2013 Overview: Seeing Dr. Bergman Hot flashes 02/28/2013 02/27/2021 Hip pain 02/07/2013 01/11/2022 Complicated grief 06/23/2011 02/02/2021 documented as of this encounter (statuses as of 08/10/2022) [facility]ative* Problem Noted Date Resolved Date NO SHOW 09/04/2014 12/10/2015 Inflammatory polyarthropathy 03/28/2013 Overview: Seeing Dr. Bergman Hot flashes 02/28/2013 02/27/2021 Hip pain 02/07/2013 01/11/2022 Complicated grief 06/23/2011 02/02/2021 documented as of this encounter (statuses as of 09/15/2022) [facility]* Problem Noted Date Diagnosed Date Resolved Date NO SHOW 09/04/2014 12/10/2015 Inflammatory polyarthropathy 03/28/2013 01/11/2022 Overview: Seeing Dr. Bergman Hot flashes 02/28/2013 02/27/2021 Hip pain 02/07/2013 01/11/2022 Complicated grief 06/23/2011 02/02/2021 documented as of this encounter (statuses as of 10/13/2022) [facility]* Problem Noted Date Diagnosed Date Resolved Date NO SHOW 09/04/2014 12/10/2015 Inflammatory polyarthropathy 03/28/2013 01/11/2022 Overview: Seeing Dr. Bergman Hot flashes 02/28/2013 02/27/2021 Hip pain 02/07/2013 01/11/2022 Complicated grief 06/23/2011 02/02/2021 documented as of this encounter (statuses as of 11/08/2022) [facility]* Problem Noted Date Diagnosed Date Resolved Date NO SHOW 09/04/2014 12/10/2015 Inflammatory polyarthropathy 03/28/2013 01/11/2022 Overview: Seeing Dr. Bergman Hot flashes 02/28/2013 02/27/2021 Hip pain 02/07/2013 01/11/2022 Complicated grief 06/23/2011 02/02/2021 documented as of this encounter (statuses as of 11/23/2022) [facility]* Problem Noted Date Diagnosed Date Resolved Date NO SHOW 09/04/2014 12/10/2015 Inflammatory polyarthropathy 03/28/2013 01/11/2022 Overview: Seeing Dr. Bergman Hot flashes 02/28/2013 02/27/2021 Hip pain 02/07/2013 01/11/2022 Complicated grief 06/23/2011 02/02/2021 documented as of this encounter (statuses as of 12/02/2022) [facility]* Problem Noted Date Diagnosed Date Resolved Date NO SHOW 09/04/2014 12/10/2015 Inflammatory polyarthropathy 03/28/2013 01/11/2022 Overview: Seeing Dr. Bergman Hot flashes 02/28/2013 02/27/2021 Hip pain 02/07/2013 01/11/2022 Complicated grief 06/23/2011 02/02/2021 documented as of this encounter (statuses as of 12/03/2022) [facility]* Problem Noted Date Diagnosed Date Resolved Date NO SHOW 09/04/2014 12/10/2015 Inflammatory polyarthropathy 03/28/2013 01/11/2022 Overview: Seeing Dr. Bergman Hot flashes 02/28/2013 02/27/2021 Hip pain 02/07/2013 01/11/2022 Complicated grief 06/23/2011 02/02/2021 documented as of this encounter (statuses as of 12/22/2022) [facility]* Problem Noted Date Diagnosed Date Resolved Date NO SHOW 09/04/2014 12/10/2015 Inflammatory polyarthropathy 03/28/2013 01/11/2022 Overview: Seeing Dr. Bergman Hot flashes 02/28/2013 02/27/2021 Hip pain 02/07/2013 01/11/2022 Complicated grief 06/23/2011 02/02/2021 documented as of this encounter (statuses as of 12/24/2022) [facility]* Problem Noted Date Diagnosed Date Resolved Date NO SHOW 09/04/2014 12/10/2015 Inflammatory polyarthropathy 03/28/2013 01/11/2022 Overview: Seeing Dr. Bergman Hot flashes 02/28/2013 02/27/2021 Hip pain 02/07/2013 01/11/2022 Complicated grief 06/23/2011 02/02/2021 documented as of this encounter (statuses as of 01/03/2023) [facility]* Problem Noted Date Diagnosed Date Resolved Date NO SHOW 09/04/2014 12/10/2015 Inflammatory polyarthropathy 03/28/2013 01/11/2022 Overview: Seeing Dr. Bergman Hot flashes 02/28/2013 02/27/2021 Hip pain 02/07/2013 01/11/2022 Complicated grief 06/23/2011 02/02/2021 documented as of this encounter (statuses as of 01/05/2023) [facility]* Problem Noted Date Diagnosed Date Resolved Date NO SHOW 09/04/2014 12/10/2015 Inflammatory polyarthropathy 03/28/2013 01/11/2022 Overview: Seeing Dr. Bergman Hot flashes 02/28/2013 02/27/2021 Hip pain 02/07/2013 01/11/2022 Complicated grief 06/23/2011 02/02/2021 documented as of this encounter (statuses as of 01/12/2023) [facility] History of Past illness Narrative* Problem Noted Date Diagnosed Date Resolved Date NO SHOW 09/04/2014 12/10/2015 Inflammatory polyarthropathy 03/28/2013 01/11/2022 Overview: Seeing Dr. Bergman Hot flashes 02/28/2013 02/27/2021 Hip pain 02/07/2013 01/11/2022 Complicated grief 06/23/2011 02/02/2021 documented as of this encounter (statuses as of 01/18/2023) [facility] History of Past illness Narrative* Problem Noted Date Diagnosed Date Resolved Date NO SHOW 09/04/2014 12/10/2015 Inflammatory polyarthropathy 03/28/2013 01/11/2022 Overview: Seeing Dr. Bergman Hot flashes 02/28/2013 02/27/2021 Hip pain 02/07/2013 01/11/2022 Complicated grief 06/23/2011 02/02/2021 documented as of this encounter (statuses as of 01/19/2023) [facility] History of Past illness Narrative* Problem Noted Date Diagnosed Date Resolved Date NO SHOW 09/04/2014 12/10/2015 Inflammatory polyarthropathy 03/28/2013 01/11/2022 Overview: Seeing Dr. Bergman Hot flashes 02/28/2013 02/27/2021 Hip pain 02/07/2013 01/11/2022 Complicated grief 06/23/2011 02/02/2021 documented as of this encounter (statuses as of 01/19/2023) [facility] History of Past illness Narrative* Problem Noted Date Diagnosed Date Resolved Date NO SHOW 09/04/2014 12/10/2015 Inflammatory polyarthropathy 03/28/2013 01/11/2022 Overview: Seeing Dr. Bergman Hot flashes 02/28/2013 02/27/2021 Hip pain 02/07/2013 01/11/2022 Complicated grief 06/23/2011 02/02/2021 documented as of this encounter (statuses as of 01/20/2023) [facility] History of Past illness Narrative* Problem Noted Date Diagnosed Date Resolved Date NO SHOW 09/04/2014 12/10/2015 Inflammatory polyarthropathy 03/28/2013 01/11/2022 Overview: Seeing Dr. Bergman Hot flashes 02/28/2013 02/27/2021 Hip pain 02/07/2013 01/11/2022 Complicated grief 06/23/2011 02/02/2021 documented as of this encounter (statuses as of 01/26/2023) [facility] History of Past illness Narrative* Problem Noted Date Diagnosed Date Resolved Date NO SHOW 09/04/2014 12/10/2015 Inflammatory polyarthropathy 03/28/2013 01/11/2022 Overview: Seeing Dr. Bergman Hot flashes 02/28/2013 02/27/2021 Hip pain 02/07/2013 01/11/2022 Complicated grief 06/23/2011 02/02/2021 documented as of this encounter (statuses as of 05/26/2023) [facility] History of Past illness Narrative* Problem Noted Date Diagnosed Date Resolved Date NO SHOW 09/04/2014 12/10/2015 Inflammatory polyarthropathy 03/28/2013 01/11/2022 Overview: Seeing Dr. Bergman Hot flashes 02/28/2013 02/27/2021 Hip pain 02/07/2013 01/11/2022 Complicated grief 06/23/2011 02/02/2021 documented as of this encounter (statuses as of 06/05/2023) [facility] Other [facility] Diagnosis Pain in joint involving right pelvic region and thigh- Primary [facility] Diagnosis Other chronic back pain- Primary [facility] Diagnosis Cervical spondylosis without myelopathy- Primary [facility] Diagnosis Other chronic back pain- Primary Post laminectomy syndrome Postlaminectomy syndrome, unspecified region Cervical spondylosis without myelopathy Chronic left shoulder pain Pain in joint, shoulder region Tobacco use disorder Radiculopathy of lumbar region Thoracic or lumbosacral neuritis or radiculitis, unspecified [facility] Diagnosis Post laminectomy syndrome- Primary Postlaminectomy syndrome, unspecified region STEPHANIE positive Other and unspecified nonspecific immunological findings Generalized anxiety disorder Post-traumatic stress disorder Posttraumatic stress disorder RSD (reflex sympathetic dystrophy) Reflex sympathetic dystrophy, unspecified Fibromyalgia Mylagia and myositis, unspecified Cervical spondylosis without myelopathy documented in this encounter [facility] note* Diagnosis Cervical spondylosis without myelopathy- Primary documented in this encounter [facility] note* Diagnosis Post laminectomy syndrome Postlaminectomy syndrome, unspecified region Generalized anxiety disorder Post-traumatic stress disorder Posttraumatic stress disorder RSD (reflex sympathetic dystrophy) Reflex sympathetic dystrophy, unspecified Fibromyalgia Mylagia and myositis, unspecified documented in this encounter [facility] note* Diagnosis Coccydynia- Primary Other disorder of coccyx Post laminectomy syndrome Postlaminectomy syndrome, unspecified region Generalized anxiety disorder Post-traumatic stress disorder Posttraumatic stress disorder RSD (reflex sympathetic dystrophy) Reflex sympathetic dystrophy, unspecified Fibromyalgia Mylagia and myositis, unspecified documented in this encounter [facility] note* Diagnosis Coccyodynia- Primary Other disorder of coccyx Coccyodynia Other disorder of coccyx documented in this encounter [facility] note* Diagnosis Bronchitis Bronchitis, not specified as acute or chronic documented in this encounter [facility] note* Diagnosis Encounter for screening mammogram for breast cancer documented in this encounter [facility] note* Diagnosis Low back pain, unspecified back pain laterality, unspecified chronicity, unspecified whether sciatica present- Primary Post laminectomy syndrome Postlaminectomy syndrome, unspecified region Hyperlipidemia, unspecified hyperlipidemia type Generalized anxiety disorder Pulmonary emphysema, unspecified emphysema type (HCC) Fibromyalgia Mylagia and myositis, unspecified Impaired glucose metabolism Impaired glucose tolerance test documented in this encounter [facility] note* Diagnosis Hyperlipidemia, unspecified hyperlipidemia type documented in this encounter [facility] note* Diagnosis Generalized anxiety disorder Pulmonary emphysema, unspecified emphysema type (HCC) Low back pain, unspecified back pain laterality, unspecified chronicity, unspecified whether sciatica present Hyperlipidemia, unspecified hyperlipidemia type documented in this encounter [facility] note* Diagnosis URI, acute- Primary Acute upper respiratory infections of unspecified site Acute otitis media, left Unspecified otitis media documented in this encounter [facility] note* Diagnosis Chronic ear pain, bilateral- Primary Hip pain, chronic, right documented in this encounter [facility] note* Diagnosis Post laminectomy syndrome Postlaminectomy syndrome, unspecified region Low back pain, unspecified back pain laterality, unspecified chronicity, unspecified whether sciatica present Generalized anxiety disorder documented in this encounter [facility] note* Diagnosis Generalized anxiety disorder documented [facility] this encounter [facility]* Diagnosis Thrombocytosis- Primary Essential thrombocythemia Night sweats Generalized hyperhidrosis Unintentional weight loss Loss of weight documented in this encounter [facility] note* Diagnosis Congestion of both ears- Primary documented in this encounter [facility]* Diagnosis Generalized anxiety disorder- Primary Post laminectomy syndrome Postlaminectomy syndrome, unspecified region Hyperlipidemia, unspecified hyperlipidemia type Post-traumatic stress disorder Posttraumatic stress disorder Mild episode of recurrent major depressive disorder (HCC) Pulmonary emphysema, unspecified emphysema type (HCC) Arthralgia of left temporomandibular joint Arthralgia of temporomandibular joint Rash and nonspecific skin eruption Rash and other nonspecific skin eruption documented in this encounter [facility] note* Diagnosis Pulmonary emphysema, unspecified emphysema type (HCC) documented in this encounter [facility] note* Diagnosis Hyperlipidemia, unspecified hyperlipidemia type documented in this encounter [facility]* Diagnosis Hyperlipidemia, unspecified hyperlipidemia type documented in this encounter [facility]* Diagnosis Arthralgia of left temporomandibular joint- Primary Arthralgia of temporomandibular joint documented in this encounter [facility]* Diagnosis Thrombocytosis- Primary Essential thrombocythemia Night sweats Generalized hyperhidrosis Unintentional weight loss Loss of weight documented in this encounter [facility]* Diagnosis Pulmonary emphysema, unspecified emphysema type (HCC) Generalized anxiety disorder documented in this encounter [facility]* Diagnosis Hyperlipidemia, unspecified hyperlipidemia type documented in this encounter [facility] note* Diagnosis Encounter for medical examination to establish care- Primary Traumatic coccydynia Bronchitis Bronchitis, not specified as acute or chronic Impaired glucose metabolism Impaired glucose tolerance test Fibromyalgia Mylagia and myositis, unspecified Pulmonary emphysema, unspecified emphysema type (HCC) Colon cancer screening Special screening for malignant neoplasms, colon Night sweats Generalized hyperhidrosis Unintentional weight loss Loss of weight documented in this encounter [facility]* Diagnosis Encounter for medical examination to establish care- Primary Traumatic coccydynia Bronchitis Bronchitis, not specified as acute or chronic Impaired glucose metabolism Impaired glucose tolerance test Fibromyalgia Mylagia and myositis, unspecified Pulmonary emphysema, unspecified emphysema type (HCC) Colon cancer screening Special screening for malignant neoplasms, colon Wrist injury, left, initial encounter [facility] Diagnosis Encounter for medical examination to establish care- Primary Traumatic coccydynia Bronchitis Bronchitis, not specified as acute or chronic Impaired glucose metabolism Impaired glucose tolerance test Fibromyalgia Mylagia and myositis, unspecified Pulmonary emphysema, unspecified emphysema type (HCC) Colon cancer screening Special screening for malignant neoplasms, colon Chronic left shoulder pain Pain in joint, shoulder region documented in this encounter [facility] for referral (narrative)* Diagnostic Procedure Only (Routine) - Closed Specialty Diagnoses / Procedures Referred By Stormyac t Referred To Contact XR IMAGING Diagnoses Other chronic back pain Procedures XR LUMBAR MOTION 4V AP/LAT/ FLEX/EXT RADEX SPINE LUMBOSACRAL MINIMUM 4 VIEWS Bonifacio Christie, [employer]HOME CARE NURSE [address] [place] [address] Xr Imaging Referral ID Status Reason Start Date Expiration Date V isits Requested Visits Authorized [id number] Closed Auto-Generate d Referral 07/02/2021 08/01/2022 1 1 Electronically signed by Bonifacio Christie [employer]IV[employer].HOME CARE NURSE at 07/02/2021 10:55 AM EDT [facility] for referral (narrative)* Diagnostic Procedure Only (Routine) - Pending Review Specialty Diagnoses / Procedures Referred By Stormyac t Referred To Contact BR IMAGING Diagnoses Encounter for screening mammogram for breast cancer Procedures ROSALIA SCREENING SCREENING MAMMOGRAPHY BI 2-VIEW BREAST INC CAD Paolo Girard MD [address] [place] [address] [facility] [address] [place] [address] Referral ID Status Reason Start Date Expiration Date Visits Requested Visits Authorized [id number] Pending Review Auto-Generat ed Referral 2 02/05/2023 1 1 [facility] for referral (narrative)* Diagnostic Procedure Only (Urgent) - Closed Specialty Diagnoses / Procedures Referred By Contac t Referred To Contact XR IMAGING Diagnoses Wrist injury, left, initial encounter Procedures XR WRIST INJURY 4V PA/LAT/OBL/SCAPH LEFT RADEX WRIST COMPLETE MINIMUM 3 VIEWS Ramiro Ayala PA-C [address] [place] [address] [place] [address] Referral ID Status Reason Start Date Expiration Date V isits Requested Visits Authorized [id number] Closed Auto-Generate d Referral 04/23/2022 05/23/2023 1 1 [facility] for referral (narrative)* Diagnostic Procedure Only (Urgent) - Closed Specialty Diagnoses / Procedures Referred By Contac t Referred To Contact XR IMAGING Diagnoses Chronic left shoulder pain Procedures XR SHOULDER GENERAL 3V OR MORE AP/TRUE AP/OTHER LEFT RADEX SHOULDER COMPLETE MINIMUM 2 VIEWS Karishma Barahona PA-C [address] [place] [address] [place] [address] Referral ID Status Reason Start Date Expiration Date V isits Requested Visits Authorized [id number] Closed Auto-Generate d Referral 04/27/2021 05/27/2022 1 1 [facility] for visit Narrative* Diagnostic Procedure Only (Routine) - Closed Specialty Diagnoses / Procedures Referred By Contac t Referred To Contact XR IMAGING Diagnoses Other chronic back pain Procedures XR LUMBAR MOTION 4V AP/LAT/ FLEX/EXT RADEX SPINE LUMBOSACRAL MINIMUM 4 VIEWS Bonifacio Christie, [employer].HOME CARE NURSE [address] [place] [address] Xr Imaging Referral ID Status Reason Start Date Expiration Date V isits Requested Visits Authorized [id number] Closed Auto-Generate d Referral 07/02/2021 08/01/2022 1 1 [facility] for visit Narrative* Diagnostic Procedure Only (Urgent) - Closed Specialty Diagnoses / Procedures Referred By Contac t Referred To Contact XR IMAGING Diagnoses Wrist injury, left, initial encounter Procedures XR WRIST INJURY 4V PA/LAT/OBL/SCAPH LEFT RADEX WRIST COMPLETE MINIMUM 3 VIEWS Ramiro Ayala PA-C [address] [place] [address] [place] [address] Referral ID Status Reason Start Date Expiration Date V isits Requested Visits Authorized [id number] Closed Auto-Generate d Referral 04/23/2022 05/23/2023 1 1 [facility] Diagnostic Procedure Only (Urgent) - Closed Specialty Diagnoses / Procedures Referred By Contac t Referred To Contact XR IMAGING Diagnoses Chronic left shoulder pain Procedures XR SHOULDER GENERAL 3V OR MORE AP/TRUE AP/OTHER LEFT RADEX SHOULDER COMPLETE MINIMUM 2 VIEWS Karishma Barahona PA-C [address] [place] [address] [place] [address] Referral ID Status Reason Start Date Expiration Date V isits Requested Visits Authorized [id number] Closed Auto-Generate d Referral 04/27/2021 05/27/2022 1 1 [facility] Summary Purpose Family History No Family History Records FoundNo Family History Records FoundThere may be information available, but it has not been provided by the sender.No Family History Records FoundNo Family History Records Found Advance Directives Documents on File Type Date Recorded 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 Assessments There may be information available, but it has not been provided by the sender. Review of System There may be information available, but it has not been provided by the sender. History of Present Illness There may be information available, but it has not been provided by the sender. Reason for Referral Specialty Diagnoses / Procedures Referred By Contac t Referred To Contact MR IMAGING Diagnoses Radiculopathy of lumbar region Procedures MRI LUMBAR SPINE WO/W IVCON MRI SPINAL CANAL LUMBAR W/O & W/CONTR MATRL Pratik, Bonifacio M, [employer].HOME CARE NURSE [address] [place] [address] Mr Imaging Referral ID Status Reason Start Date Expiration Date Visits Requested Visits Authorized [id number] Pending Review Auto-Generat ed Referral 08/13/2021 09/12/2022 1 1 Specialty Diagnoses / Procedures Referred By Contac t Referred To Contact Physical Therapy Diagnoses Other chronic back pain Post laminectomy syndrome Procedures CONSULT TO PHYSICAL THERAPY Bonifacio Christie, [employer].HOME CARE NURSE [address] [place] [address] Referral ID Status Reason Start Date Expiration Date V isits Requested Visits Authorized [id number] Pending Review 08/13/2021 11/11/2021 1 1 Specialty Diagnoses / Procedures Referred By Contac t Referred To Contact Hematology Diagnoses Thrombocytosis Night sweats Unintentional weight loss Procedures CONSULT TO HEMATOLOGY OFFICE/OUTPATIENT NEW [facility] MDM 60-74 MINUTES Nely Flores [employer].HOME CARE NURSE [address] [place] [address] Referral ID Status Reason Start Date Expiration Date Visits Requested Visits Authorized [id number] Authorized PCP Requested Referral 01/12/2023 01/12/2024 1 1 Specialty Diagnoses / Procedures Referred By Contac t Referred To Contact [facility] Diagnoses Arthralgia of left temporomandibular joint Procedures CONSULT TO PHYSICAL THERAPY PHYSICAL THERAPY EVALUATION HIGH COMPLEX 45 MINS Paolo Girard MD [address] [place] [address] [facility] [address] [place] [address] Referral ID Status Reason Start Date Expiration Date Visits Requested Visits Authorized [id number] Authorized Auto-Generat ed Referral 03/14/2023 03/13/2024 99 99 Specialty Diagnoses / Procedures Referred By Contac t Referred To Contact [facility] Diagnoses Arthralgia of left temporomandibular joint Procedures PT REHAB FOLLOW UP ORDER THERAPEUTIC EXERCISES RE, EA 15 MIN. Fahad Vidal, PT [facility] [address] [place] [address] [place] [address] Referral ID Status Reason Start Date Expiration Date Visits Requested Visits Authorized [id number] Pending Review PCP Requested Referral Auto-Generate d Referral 07/13/2023 10/11/2023 1 1 Health Concerns Infection Onset Date Last Indicated Resolved Time COVID-19 Rule-Out 11/22/2022 11/22/2022 Additional Source Comments INFORMATION SOURCE (unrecogn ized section and content) DATE CREATED AUTHOR 11/04/2017 [facility] wale Castillo DATE CREATED AUTHOR AUTHOR'S ORGANIZ ATION 09/09/2018 [facility] ([place]) DATE CREATED AUTHOR AUTHOR'S ORGANIZ ATION 10/23/2021 [facility] DATE CREATED AUTHOR AUTHOR'S ORGANIZ ATION 11/19/2023 [facility] Reason for Visit (unrecogniz ed section and content) Reason For Visit Description New - 1st visit with practice Preliminary reason f or visit data, not yet signed by the author as of right hip pain Reason Comments Received Outside Medical Records edith pain Reason Comments disk request Reason Comments Patient Update Reason Comments Right Hip Pain Reason Comments Reason Comments Received Outside Medical Records edith ortho Reason Comments Follow Up Reason Comments Medical Health Researcher - Other Reason Comments Follow Up Injections Reason Comments Future Appointment Reason Comments Neck Pain Low Back Pain Reason Comments Follow Up Reason Onset Date Comments Refill Request 11/17/2021 Reason Comments Appointment Patient Update Reason Comments F/U 3 Month Reason Comments Med Change Request Reason Onset Date Comments ACM MALENA RN 08/10/2022 Medication Ad herence review per request of payer Reason Onset Date Comments Refill Request 09/15/2022 Reason Onset Date Comments Population Health Navigation Outreach 10/12/2022 [facility], Follow up visit, CRS Reason Comments Orders Reason Comments Nasal Congestion drainage, fatigue, l eft ear pain, eyes burning, rash and chills x 3 days Reason Comments Ear Pain Bilateral ear pain x 1 week Right Hip Pain Chronic Reason Onset Date Comments Refill Request 12/02/2022 Reason Comments Pt update on illness Reason Comments Patient Request Reason Comments Appointment Reason Comments Results Reason Onset Date Comments Population Health Navigation Outreach 01/19/2023 [facility] care gaps Reason Onset Date Comments [facility] Navigation Outreach 05/26/2023 [facility] care gaps Reason Comments Ear Pain Bilateral, chronic Reason Comments F/U 6 months Reason Onset Date Comments Refill Request 06/29/2023 Reason Comments Results Reason Comments PT Eval Specialty Diagnoses / Procedures Referred By Kirit siddiqi Referred To Contact [facility] Diagnoses Arthralgia of left temporomandibular joint Procedures CONSULT TO PHYSICAL THERAPY PHYSICAL THERAPY EVALUATION HIGH COMPLEX 45 MINS Paolo Girard MD [address] [place] [address] [facility] [address] [place] [address] Referral ID Status Reason Start Date Expiration Date Visits Requested Visits Authorized [id number] Authorized Auto-Generat ed Referral 03/14/2023 03/13/2024 99 99 Reason Comments New Patient Specialty Diagnoses / Procedures Referred By Kirit siddiqi Referred To Contact Hematology Diagnoses Thrombocytosis Night sweats Unintentional weight loss Procedures CONSULT TO HEMATOLOGY OFFICE/OUTPATIENT NEW HIGH MDM 60-74 MINUTES Nely Schuler, [employer]IV[employer].HOME CARE NURSE [address] [place] [address] Referral ID Status Reason Start Date Expiration Date V isits Requested Visits Authorized [id number] Closed PCP Requested Referral 01/12/2023 01/12/2024 [address] [facility] pt update with [facility] Reason Onset Date Comments Refill Request 08/31/2023 Reason Onset Date Comments Population Health Navigation Outreach 11/09/2023 [facility] Source Comments (unrecognize d section and content) In the event this informatio n is protected by the Federal Confidentiality of Alcohol and Drug Abuse Patient Records regulations: The Federal rules restrict any use of the information to criminally investigate or prosecute any alcohol or drug abuse patient.[facility] the event this information is protected by the Federal Confidentiality of Alcohol and Drug Abuse Patient Records regulations: The Federal rules restrict any use of the information to criminally investigate or prosecute any alcohol or drug abuse patient.[facility] the event this information is protected by the Federal Confidentiality of Alcohol and Drug Abuse Patient Records regulations: The Federal rules restrict any use of the information to criminally investigate or prosecute any alcohol or drug abuse patient.[facility] the event this information is protected by the Federal Confidentiality of Alcohol and Drug Abuse Patient Records regulations: The Federal rules restrict any use of the information to criminally investigate or prosecute any alcohol or drug abuse patient.[facility] the event this information is protected by the Federal Confidentiality of Alcohol and Drug Abuse Patient Records regulations: The Federal rules restrict any use of the information to criminally investigate or prosecute any alcohol or drug abuse patient.[facility] the event this information is protected by the Federal Confidentiality of Alcohol and Drug Abuse Patient Records regulations: The Federal rules restrict any use of the information to criminally investigate or prosecute any alcohol or drug abuse patient.[facility] the event this information is protected by the Federal Confidentiality of Alcohol and Drug Abuse Patient Records regulations: The Federal rules restrict any use of the information to criminally investigate or prosecute any alcohol or drug abuse patient.[facility] HospitalIn the event this information is protected by the Federal Confidentiality of Alcohol and Drug Abuse Patient Records regulations: The Federal rules restrict any use of the information to criminally investigate or prosecute any alcohol or drug abuse patient.[facility] HospitalIn the event this information is protected by the Federal Confidentiality of Alcohol and Drug Abuse Patient Records regulations: The Federal rules restrict any use of the information to criminally investigate or prosecute any alcohol or drug abuse patient.[facility] HospitalIn the event this information is protected by the Federal Confidentiality of Alcohol and Drug Abuse Patient Records regulations: The Federal rules restrict any use of the information to criminally investigate or prosecute any alcohol or drug abuse patient.[facility] HospitalIn the event this information is protected by the Federal Confidentiality of Alcohol and Drug Abuse Patient Records regulations: The Federal rules restrict any use of the information to criminally investigate or prosecute any alcohol or drug abuse patient.[facility] HospitalIn the event this information is protected by the Federal Confidentiality of Alcohol and Drug Abuse Patient Records regulations: The Federal rules restrict any use of the information to criminally investigate or prosecute any alcohol or drug abuse patient.[facility] HospitalIn the event this information is protected by the Federal Confidentiality of Alcohol and Drug Abuse Patient Records regulations: The Federal rules restrict any use of the information to criminally investigate or prosecute any alcohol or drug abuse patient.[facility] HospitalIn the event this information is protected by the Federal Confidentiality of Alcohol and Drug Abuse Patient Records regulations: The Federal rules restrict any use of the information to criminally investigate or prosecute any alcohol or drug abuse patient.[facility] HospitalIn the event this information is protected by the Federal Confidentiality of Alcohol and Drug Abuse Patient Records regulations: The Federal rules restrict any use of the information to criminally investigate or prosecute any alcohol or drug abuse patient.[facility] HospitalIn the event this information is protected by the Federal Confidentiality of Alcohol and Drug Abuse Patient Records regulations: The Federal rules restrict any use of the information to criminally investigate or prosecute any alcohol or drug abuse patient.[facility] HospitalIn the event this information is protected by the Federal Confidentiality of Alcohol and Drug Abuse Patient Records regulations: The Federal rules restrict any use of the information to criminally investigate or prosecute any alcohol or drug abuse patient.[facility] HospitalIn the event this information is protected by the Federal Confidentiality of Alcohol and Drug Abuse Patient Records regulations: The Federal rules restrict any use of the information to criminally investigate or prosecute any alcohol or drug abuse patient.[facility] HospitalIn the event this information is protected by the Federal Confidentiality of Alcohol and Drug Abuse Patient Records regulations: The Federal rules restrict any use of the information to criminally investigate or prosecute any alcohol or drug abuse patient.[facility] HospitalIn the event this information is protected by the Federal Confidentiality of Alcohol and Drug Abuse Patient Records regulations: The Federal rules restrict any use of the information to criminally investigate or prosecute any alcohol or drug abuse patient.[facility] HospitalIn the event this information is protected by the Federal Confidentiality of Alcohol and Drug Abuse Patient Records regulations: The Federal rules restrict any use of the information to criminally investigate or prosecute any alcohol or drug abuse patient.[facility] HospitalIn the event this information is protected by the Federal Confidentiality of Alcohol and Drug Abuse Patient Records regulations: The Federal rules restrict any use of the information to criminally investigate or prosecute any alcohol or drug abuse patient.[facility] HospitalIn the event this information is protected by the Federal Confidentiality of Alcohol and Drug Abuse Patient Records regulations: The Federal rules restrict any use of the information to criminally investigate or prosecute any alcohol or drug abuse patient.[facility] HospitalIn the event this information is protected by the Federal Confidentiality of Alcohol and Drug Abuse Patient Records regulations: The Federal rules restrict any use of the information to criminally investigate or prosecute any alcohol or drug abuse patient.[facility] HospitalIn the event this information is protected by the Federal Confidentiality of Alcohol and Drug Abuse Patient Records regulations: The Federal rules restrict any use of the information to criminally investigate or prosecute any alcohol or drug abuse patient.[facility] HospitalIn the event this information is protected by the Federal Confidentiality of Alcohol and Drug Abuse Patient Records regulations: The Federal rules restrict any use of the information to criminally investigate or prosecute any alcohol or drug abuse patient.[facility] HospitalIn the event this information is protected by the Federal Confidentiality of Alcohol and Drug Abuse Patient Records regulations: The Federal rules restrict any use of the information to criminally investigate or prosecute any alcohol or drug abuse patient.[facility] HospitalIn the event this information is protected by the Federal Confidentiality of Alcohol and Drug Abuse Patient Records regulations: The Federal rules restrict any use of the information to criminally investigate or prosecute any alcohol or drug abuse patient.[facility] HospitalIn the event this information is protected by the Federal Confidentiality of Alcohol and Drug Abuse Patient Records regulations: The Federal rules restrict any use of the information to criminally investigate or prosecute any alcohol or drug abuse patient.[facility] HospitalIn the event this information is protected by the Federal Confidentiality of Alcohol and Drug Abuse Patient Records regulations: The Federal rules restrict any use of the information to criminally investigate or prosecute any alcohol or drug abuse patient.[facility] HospitalIn the event this information is protected by the Federal Confidentiality of Alcohol and Drug Abuse Patient Records regulations: The Federal rules restrict any use of the information to criminally investigate or prosecute any alcohol or drug abuse patient.[facility] HospitalIn the event this information is protected by the Federal Confidentiality of Alcohol and Drug Abuse Patient Records regulations: The Federal rules restrict any use of the information to criminally investigate or prosecute any alcohol or drug abuse patient.[facility] HospitalIn the event this information is protected by the Federal Confidentiality of Alcohol and Drug Abuse Patient Records regulations: The Federal rules restrict any use of the information to criminally investigate or prosecute any alcohol or drug abuse patient.[facility] HospitalIn the event this information is protected by the Federal Confidentiality of Alcohol and Drug Abuse Patient Records regulations: The Federal rules restrict any use of the information to criminally investigate or prosecute any alcohol or drug abuse patient.[facility] HospitalIn the event this information is protected by the Federal Confidentiality of Alcohol and Drug Abuse Patient Records regulations: The Federal rules restrict any use of the information to criminally investigate or prosecute any alcohol or drug abuse patient.[facility] HospitalIn the event this information is protected by the Federal Confidentiality of Alcohol and Drug Abuse Patient Records regulations: The Federal rules restrict any use of the information to criminally investigate or prosecute any alcohol or drug abuse patient.[facility] HospitalIn the event this information is protected by the Federal Confidentiality of Alcohol and Drug Abuse Patient Records regulations: The Federal rules restrict any use of the information to criminally investigate or prosecute any alcohol or drug abuse patient.[facility] HospitalIn the event this information is protected by the Federal Confidentiality of Alcohol and Drug Abuse Patient Records regulations: The Federal rules restrict any use of the information to criminally investigate or prosecute any alcohol or drug abuse patient.[facility] HospitalIn the event this information is protected by the Federal Confidentiality of Alcohol and Drug Abuse Patient Records regulations: The Federal rules restrict any use of the information to criminally investigate or prosecute any alcohol or drug abuse patient.[facility] HospitalIn the event this information is protected by the Federal Confidentiality of Alcohol and Drug Abuse Patient Records regulations: The Federal rules restrict any use of the information to criminally investigate or prosecute any alcohol or drug abuse patient.[facility] HospitalIn the event this information is protected by the Federal Confidentiality of Alcohol and Drug Abuse Patient Records regulations: The Federal rules restrict any use of the information to criminally investigate or prosecute any alcohol or drug abuse patient.[facility] HospitalIn the event this information is protected by the Federal Confidentiality of Alcohol and Drug Abuse Patient Records regulations: The Federal rules restrict any use of the information to criminally investigate or prosecute any alcohol or drug abuse patient.[facility] HospitalIn the event this information is protected by the Federal Confidentiality of Alcohol and Drug Abuse Patient Records regulations: The Federal rules restrict any use of the information to criminally investigate or prosecute any alcohol or drug abuse patient.[facility] HospitalIn the event this information is protected by the Federal Confidentiality of Alcohol and Drug Abuse Patient Records regulations: The Federal rules restrict any use of the information to criminally investigate or prosecute any alcohol or drug abuse patient.[facility] HospitalIn the event this information is protected by the Federal Confidentiality of Alcohol and Drug Abuse Patient Records regulations: The Federal rules restrict any use of the information to criminally investigate or prosecute any alcohol or drug abuse patient.[facility] HospitalIn the event this information is protected by the Federal Confidentiality of Alcohol and Drug Abuse Patient Records regulations: The Federal rules restrict any use of the information to criminally investigate or prosecute any alcohol or drug abuse patient.[facility] HospitalIn the event this information is protected by the Federal Confidentiality of Alcohol and Drug Abuse Patient Records regulations: The Federal rules restrict any use of the information to criminally investigate or prosecute any alcohol or drug abuse patient.[facility] HospitalIn the event this information is protected by the Federal Confidentiality of Alcohol and Drug Abuse Patient Records regulations: The Federal rules restrict any use of the information to criminally investigate or prosecute any alcohol or drug abuse patient.[facility] HospitalIn the event this information is protected by the Federal Confidentiality of Alcohol and Drug Abuse Patient Records regulations: The Federal rules restrict any use of the information to criminally investigate or prosecute any alcohol or drug abuse patient.[facility] HospitalIn the event this information is protected by the Federal Confidentiality of Alcohol and Drug Abuse Patient Records regulations: The Federal rules restrict any use of the information to criminally investigate or prosecute any alcohol or drug abuse patient.[facility] HospitalIn the event this information is protected by the Federal Confidentiality of Alcohol and Drug Abuse Patient Records regulations: The Federal rules restrict any use of the information to criminally investigate or prosecute any alcohol or drug abuse patient.[facility] HospitalIn the event this information is protected by the Federal Confidentiality of Alcohol and Drug Abuse Patient Records regulations: The Federal rules restrict any use of the information to criminally investigate or prosecute any alcohol or drug abuse patient.[facility] HospitalIn the event this information is protected by the Federal Confidentiality of Alcohol and Drug Abuse Patient Records regulations: The Federal rules restrict any use of the information to criminally investigate or prosecute any alcohol or drug abuse patient.[facility] HospitalIn the event this information is protected by the Federal Confidentiality of Alcohol and Drug Abuse Patient Records regulations: The Federal rules restrict any use of the information to criminally investigate or prosecute any alcohol or drug abuse patient.[facility] HospitalIn the event this information is protected by the Federal Confidentiality of Alcohol and Drug Abuse Patient Records regulations: The Federal rules restrict any use of the information to criminally investigate or prosecute any alcohol or drug abuse patient.[facility] HospitalIn the event this information is protected by the Federal Confidentiality of Alcohol and Drug Abuse Patient Records regulations: The Federal rules restrict any use of the information to criminally investigate or prosecute any alcohol or drug abuse patient.[facility] HospitalIn the event this information is protected by the Federal Confidentiality of Alcohol and Drug Abuse Patient Records regulations: The Federal rules restrict any use of the information to criminally investigate or prosecute any alcohol or drug abuse patient.[facility] HospitalIn the event this information is protected by the Federal Confidentiality of Alcohol and Drug Abuse Patient Records regulations: The Federal rules restrict any use of the information to criminally investigate or prosecute any alcohol or drug abuse patient.[facility] HospitalIn the event this information is protected by the Federal Confidentiality of Alcohol and Drug Abuse Patient Records regulations: The Federal rules restrict any use of the information to criminally investigate or prosecute any alcohol or drug abuse patient.[facility] HospitalIn the event this information is protected by the Federal Confidentiality of Alcohol and Drug Abuse Patient Records regulations: The Federal rules restrict any use of the information to criminally investigate or prosecute any alcohol or drug abuse patient.[facility] HospitalIn the event this information is protected by the Federal Confidentiality of Alcohol and Drug Abuse Patient Records regulations: The Federal rules restrict any use of the information to criminally investigate or prosecute any alcohol or drug abuse patient.[facility] HospitalIn the event this information is protected by the Federal Confidentiality of Alcohol and Drug Abuse Patient Records regulations: The Federal rules restrict any use of the information to criminally investigate or prosecute any alcohol or drug abuse patient.[facility] HospitalIn the event this information is protected by the Federal Confidentiality of Alcohol and Drug Abuse Patient Records regulations: The Federal rules restrict any use of the information to criminally investigate or prosecute any alcohol or drug abuse patient.[facility] HospitalIn the event this information is protected by the Federal Confidentiality of Alcohol and Drug Abuse Patient Records regulations: The Federal rules restrict any use of the information to criminally investigate or prosecute any alcohol or drug abuse patient.[facility] HospitalIn the event this information is protected by the Federal Confidentiality of Alcohol and Drug Abuse Patient Records regulations: The Federal rules restrict any use of the information to criminally investigate or prosecute any alcohol or drug abuse patient.[facility] HospitalIn the event this information is protected by the Federal Confidentiality of Alcohol and Drug Abuse Patient Records regulations: The Federal rules restrict any use of the information to criminally investigate or prosecute any alcohol or drug abuse patient.[facility] HospitalIn the event this information is protected by the Federal Confidentiality of Alcohol and Drug Abuse Patient Records regulations: The Federal rules restrict any use of the information to criminally investigate or prosecute any alcohol or drug abuse patient.[facility] HospitalIn the event this information is protected by the Federal Confidentiality of Alcohol and Drug Abuse Patient Records regulations: The Federal rules restrict any use of the information to criminally investigate or prosecute any alcohol or drug abuse patient.[facility] HospitalIn the event this information is protected by the Federal Confidentiality of Alcohol and Drug Abuse Patient Records regulations: The Federal rules restrict any use of the information to criminally investigate or prosecute any alcohol or drug abuse patient.[facility] HospitalIn the event this information is protected by the Federal Confidentiality of Alcohol and Drug Abuse Patient Records regulations: The Federal rules restrict any use of the information to criminally investigate or prosecute any alcohol or drug abuse patient.[facility] Care Teams (unrecognized sec tion and content) Medical Administrator Relationship Specialty Start Date End Date Jaylin Diehl CNP [address] [place] [address] PCP - General Family Practice 09/16/21 Medical Administrator Relationship Specialty Start Date End Date Jaylin Diehl, HOME CARE NURSE [address] [place] [address] PCP - General Family Practice 09/16/21 Medical Administrator Relationship Specialty Start Date End Date Jaylin Diehl HOME CARE NURSE [address] [place] [address] PCP - General Family Practice 09/16/21 Medical Administrator Relationship Specialty Start Date End Date Jaylin Diehl, HOME CARE NURSE [address] [place] [address] PCP - General Family Practice 09/16/21 Medical Administrator Relationship Specialty Start Date End Date Jaylin Diehl HOME CARE NURSE [address] [place] [address] PCP - General Family Practice 09/16/21 Medical Administrator Relationship Specialty Start Date End Date Jaylin Diehl HOME CARE NURSE [address] [place] [address] PCP - General Family Practice 09/16/21 Medical Administrator Relationship Specialty Start Date End Date Jaylin Diehl HOME CARE NURSE [address] [place] [address] PCP - General Family Practice 09/16/21 Medical Administrator Relationship Specialty Start Date End Date AlidamichelineJaylin HOME CARE NURSE [address] [place] [address] PCP - General Family Practice 09/16/21 Medical Administrator Relationship Specialty Start Date End Date Jaylin Diehl HOME CARE NURSE [address] [place] [address] PCP - General Family Practice 09/16/21 Medical Administrator Relationship Specialty Start Date End Date Neil Diehlchristi HOME CARE NURSE [address] [place] [address] PCP - General Family Practice 09/16/21 11/29/21 Paolo Girard MD [address] [place] [address] PCP - General Internal Medicine 11/30/21 Medical Administrator Relationship Specialty Start Date End Date Paolo Girard MD [address] [place] [address] PCP - General Internal Medicine 11/30/21 Medical Administrator Relationship Specialty Start Date End Date Paolo Girard MD [address] [place] [address] PCP - General Internal Medicine 11/30/21 Medical Administrator Relationship Specialty Start Date End Date Paolo Girard MD [address] [place] [address] PCP - General Internal Medicine 11/30/21 Medical Administrator Relationship Specialty Start Date End Date Paolo Girard MD [address] [place] [address] PCP - General Internal Medicine 11/30/21 Medical Administrator Relationship Specialty Start Date End Date Paolo Girard MD [address] [facility] [place] [address] PCP - General Internal Medicine 11/30/21 Medical Administrator Relationship Specialty Start Date End Date Paolo Girard MD [address] [place] [address] PCP - General Internal Medicine 11/30/21 Medical Administrator Relationship Specialty Start Date End Date Paolo Griard MD [address] [place] [address] PCP - General Internal Medicine 11/30/21 Medical Administrator Relationship Specialty Start Date End Date Paolo Girard MD [address] [place] [address] PCP - General Internal Medicine 11/30/21 Medical Administrator Relationship Specialty Start Date End Date Paolo Girard MD [address] [place] [address] PCP - General Internal Medicine 11/30/21 Medical Administrator Relationship Specialty Start Date End Date Paolo Girard MD [address] [place] [address] PCP - General Internal Medicine 11/30/21 Medical Administrator Relationship Specialty Start Date End Date Paolo Girard MD [address] [place] [address] PCP - General Internal Medicine 11/30/21 Medical Administrator Relationship Specialty Start Date End Date Paolo Girard MD [address] [place] [address] PCP - General Internal Medicine 11/30/21 Medical Administrator Relationship Specialty Start Date End Date Paolo Girard MD [address] [place] [address] PCP - General Internal Medicine 11/30/21 Medical Administrator Relationship Specialty Start Date End Date Paolo Girard MD [address] [place] [address] PCP - General Internal Medicine 11/30/21 Medical Administrator Relationship Specialty Start Date End Date Paolo Girard MD [address] [place] [address] PCP - General Internal Medicine 11/30/21 Medical Administrator Relationship Specialty Start Date End Date Paolo Girard MD [address] [place] [address] PCP - General Internal Medicine 11/30/21 Medical Administrator Relationship Specialty Start Date End Date Paolo Girard MD [address] [place] [address] PCP - General Internal Medicine 11/30/21 Medical Administrator Relationship Specialty Start Date End Date Paolo Girard MD [address] [place] [address] PCP - General Internal Medicine 11/30/21 Medical Administrator Relationship Specialty Start Date End Date Paolo Girard MD [address] [place] [address] PCP - General Internal Medicine 11/30/21 Medical Administrator Relationship Specialty Start Date End Date Paolo Girard MD [address] [place] [address] PCP - General Internal Medicine 11/30/21 Medical Administrator Relationship Specialty Start Date End Date Paolo Girard MD [address] [place] [address] PCP - General Internal Medicine 11/30/21 Medical Administrator Relationship Specialty Start Date End Date Paolo Girard MD [address] [place] [address] PCP - General Internal Medicine 11/30/21 Medical Administrator Relationship Specialty Start Date End Date Paolo Girard MD [address] [place] [address] PCP - General Internal Medicine 11/30/21 Medical Administrator Relationship Specialty Start Date End Date Paolo Girard MD [address] [place] [address] PCP - General Internal Medicine 11/30/21 Medical Administrator Relationship Specialty Start Date End Date Paolo Girard MD [address] [place] [address] PCP - General Internal Medicine 01/09/21 05/14/21 FOR RECORDS PERTAINING TO PATIENTS WHO ARE OR HAVE BEEN ENROLLED IN A CHEMICAL DEPENDENCY/SUBSTANCEABUSE PROGRAM, SOME INFORMATION MAY BE OMITTED. This clinical summary was aggregated from multiple sources. Caution should be exercised in using it in the provision of clinical care. This summary normalizes information from multiple sources, and as a consequence, information in this document may materially change the coding, format and clinical context of patient data. In addition, data may be omitted in some cases. CLINICAL DECISIONS SHOULD BE BASED ON THE PRIMARY CLINICAL RECORDS. [facility] [employer] [facility]. provides no warranty or guarantee of the accuracy or completeness of information in this document.
--- NOTE | 2024-01-06 05:21 | RAD_ITS ---
INDICATION: Pain EXAMINATION/TECHNIQUE: X-RAY - XR Sacrum/Coccyx Min 2 Views COMPARISON: No relevant prior comparison study available FINDINGS: No definite fracture demonstrated. The sacroiliac joints are symmetric. RAD/Sacrum-Coccyx min 2 Views IMPRESSION: No definite fracture. CT may be helpful further evaluation if clinically indicated. Electronically Signed: Lu Dean MD at 6:42 EDT ,
--- NOTE | 2024-01-06 05:30 | RAD_ITS ---
INDICATION: Injury/Pain EXAMINATION/TECHNIQUE: X-RAY - XR Spine Lumbar 2 or 3 Views COMPARISON: Prior study dated: 03/02/2022 FINDINGS: The vertebral bodies are normal in height. No definite fracture demonstrated. No subluxation. No paravertebral soft tissue mass identified. RAD/Lumbar Spine 2 or 3 Views IMPRESSION: No evidence of fracture or subluxation. Electronically Signed: Lu Dean MD at 6:41 EDT ,
== END 2024-01-06 07:06 | disposition home or self-care (01) ==
PROVIDERS: Emergency Provider Emergency Medicine; PCP Internal Medicine; Visit Provider Emergency Medicine
DX: S39.012A Strain of muscle, fascia and tendon of lower back, initial encounter (principal); J44.9 Chronic obstructive pulmonary disease, unspecified; E78.00 Pure hypercholesterolemia, unspecified; G89.29 Other chronic pain; M54.9 Dorsalgia, unspecified; W22.8XXA Striking against or struck by other objects, initial encounter; F41.9 Anxiety disorder, unspecified; Z79.899 Other long term (current) drug therapy; Z90.710 Acquired absence of both cervix and uterus; F17.210 Nicotine dependence, cigarettes, uncomplicated
CPT/HCPCS: 72100; 72220; 99282

== ENCOUNTER → 2024-04-17 | Outpatient (CLI) | payer MEDICARE, MEDICAID, SELFPAY ==
--- NOTE | 2024-04-17 11:44 | BI_ITS ---
PROCEDURE: SCRN MAMM (CAD)W/KYAW BILAT REASON FOR EXAM: F, Age 58 y/o, presents for annual screening mammography. TECHNIQUE: Bilateral screening digital breast tomosynthesis with 2D and 3D images. Computer aided detection. COMPARISON: 01/13/2023. FINDINGS: There are scattered areas of fibroglandular density. No suspicious masses, areas of developing architectural distortion, or suspicious calcifications. BI/SCRN MAMM (CAD)W/KYAW BILAT IMPRESSION: There is no mammographic evidence of malignancy. BI-RADS 1: NEGATIVE. RECOMMEND ANNUAL MAMMOGRAPHIC SCREENING. Follow-up code: Routine Follow-up The patient will be notified of the results by letter. Reading Location: [id number]
== END | disposition home or self-care (01) ==
PROVIDERS: PCP Internal Medicine; Referring Provider Internal Medicine; Visit Provider Internal Medicine
DX: Z12.31 Encounter for screening mammogram for malignant neoplasm of breast (principal)
CPT/HCPCS: 77063; 77067